=== PATIENT | female | born 1955 | race Caucasian/White ===

== ENCOUNTER → 2020-08-25 15:03 | Outpatient (BNVA) | payer BC, SELFPAY | PROVIDERS: PCP Internal Medicine; Visit Provider Internal Medicine Cardiovascular Disease | DX: I48.0 Paroxysmal atrial fibrillation (principal); I10 Essential (primary) hypertension; E11.9 Type 2 diabetes mellitus without complications; Z79.01 Long term (current) use of anticoagulants | CPT/HCPCS: 93005 ==

== ENCOUNTER 2021-01-15 06:05 | Inpatient (IN) | payer BC, SELFPAY ==
[2021-01-15] VITALS (7 sets, daily range): BP systolic 90–166; BP diastolic 62–91; PULSE 65–99; RESP 16–20; TEMP 36.7–36.8; O2SAT 96–100; BMI 39.1
--- NOTE | ~2021-01-15 | CT_ITS ---
EXAMINATION: CT HEAD WITHOUT CONTRAST CLINICAL INFORMATION: Confusion. Rule out bleed, stroke. COMPARISON: Report CT head 08/01/2009. MRI brain 08/12/2009. TECHNIQUE: Contiguous axial imaging was performed from the skull base to vertex without intravenous administration of contrast. This CT examination was performed using dose optimization techniques as appropriate, variously including the following: *Automated exposure control *Adjustment of mA and/or kV according to patient size (this includes techniques or standardized protocols for targeted exams where dose is matched to indication/reason for exam; i.e. extremities or head) *Use of iterative reconstruction technique DLP: 694 mGy-cm FINDINGS: Mild diffuse commensurate prominence of ventricles and sulci is noted. No intrarenal hemorrhage, tumors or acute infarcts are visualized. Mild segmental calcific atherosclerotic plaques are present in the cavernous portions of the cavernous portions of the internal carotid arteries and mild focal atherosclerotic plaques are present in the intradural segments of the left and right vertebral arteries. The orbits and globes are normal in appearance. Mild hyperostosis frontalis interna is visualized. No significant opacification of the visualized paranasal sinuses, mastoid air cells and middle ear cavities is noted. CT/CT head/brain wo con IMPRESSION: 1. No acute intracranial abnormalities. 2. Mild intercranial atherosclerosis; otherwise, normal unenhanced CT of the head. No intracranial hemorrhage, tumors or acute infarcts.
--- NOTE | 2021-01-15 06:15 | PC.NURSE ---
PT TO ED IN A MANIC PHASE. PT RAMBLING IN ROOM. PT ARRIVES ALERT, RESPIRATIONS EASY, N/L. SKIN W/Kylee. AT BEDSIDE FOR EVAL.
--- NOTE | 2021-01-15 06:30 | PC.NURSE ---
PT TO CT IN STRETCHER.
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
--- NOTE | 2021-01-15 07:21 | ECG_ITS ---
Test Reason : Atrial fibrillation Blood Pressure : / mmHG Vent. Rate : 085 BPM Atrial Rate : 085 BPM P-R Int : 166 ms QRS Dur : 086 ms QT Int : 436 ms P-R-T Axes : 046 017 150 degrees QTc Int : 518 ms Sinus rhythm with frequent Premature ventricular complexes Low voltage QRS ST & T wave abnormality, consider anterolateral ischemia Prolonged QT Abnormal ECG When compared with ECG of 08-JAN-2019 09:40, Premature ventricular complexes are now Present Left bundle branch block is no longer Present Referred By: Dick Ludwig Electronically Signed By:TC LEWIS MD
[2021-01-15 07:34] LABS: MANUAL DIFF FLAG NO
[2021-01-15 07:36] LABS: Basophils Percent Auto 0.4 % (0-2); Eosinophils Percent Auto 0.3 % (0-4); Hematocrit 33.4 % (37-47); Hemoglobin 11.1 g/dl (12.0-16.0); Imm Gran Abs Auto 0.03 X10*3/uL (0.00-0.03); Imm Gran Pct Auto 0.4 % (0.0-0.4); Lymphocytes Absolute Auto 1.3 X10*3/uL (1.2-4.9); Lymphocytes Percent Auto 18.1 % (20-40); Mean Corpuscular HGB Conc 33.2 g/dl (31.0-35.0); Mean Corpuscular Hemoglobin 28.8 pg (27.0-33.0); Mean Corpuscular Volume 86.5 fL (80-98); Mean Platelet Volume 9.6 fL (9.4-12.3); Monocytes Absolute Auto 0.5 X10*3/uL (0.1-1.2); Monocytes Percent Auto 6.5 % (2-11); Neutrophils Absolute Auto 5.3 X10*3/uL (2.0-8.3); Neutrophils Percent Auto 74.3 % (45-73); Platelet Count 221 X10*3/uL (160-400); Red Blood Count 3.86 X10*6/uL (4.20-5.50); Red Cell Distribution Width 13.6 % (11.0-16.0); White Blood Count 7.1 X10*3/uL (4.8-10.8)
[2021-01-15 08:06] LABS: Ethanol < 10 mg/dL; INTERNATIONAL NORM RATIO 1.3 (0.9-1.1); Prothrombin Time 15.1 SEC (10.8-13.0)
[2021-01-15 08:08] LABS: COVID-19 Test Negative (Negative)
[2021-01-15 08:09] LABS: Partial Thromboplastin Time 28.8 SEC (24.1-38.0)
[2021-01-15 08:10] LABS: Acetaminophen LAB < 1 mcg/mL (<30); Alanine Aminotransferase 22 U/L (0-31); Albumin Level 3.9 g/dL (3.5-5.0); Alkaline Phosphatase 58 U/L (39-117); Anion Gap 12 (12-20); Aspartate Amino Transferase 23 U/L (5-31); Bilirubin Total 0.8 mg/dL (0.0-1.0); Blood Urea Nitrogen 8 mg/dL (9-16); Calcium 8.6 mg/dL (8.4-10.2); Carbon Dioxide 24 mmol/L (22-29); Chloride 110 mmol/L (96-108); Creatinine Clr Calc Pharmacy 93.1; Estimated Glomerular Filt Rate > 60; Glucose Random 132 mg/dL (60-115); Potassium 3.2 mmol/L (3.3-5.1); Salicylate < 5.0 mg/dL (15-30); Sodium 143 mmol/L (135-145); Total Protein 6.4 g/dL (6.5-8.0)
--- NOTE | 2021-01-15 08:16 | PC.NURSE ---
EKG was done at this time, and given to Dr Ludwig
[2021-01-15] MEDS: LORazepam 1 MG TABLET 2 MG PO ×2 (08:23→19:29)
[2021-01-15 08:30] LABS: TSH reflex Free T4 3.85 uIU/mL (0.32-4.0)
[2021-01-15 12:03] LABS: Glucose Urine UA NEG (NEG); Leukocyte Esterase Urine TRACE (NEG); Nitrite Urine NEG (NEG); PH 5.5 (5.0-8.0); UACC Culture Trigger YES; Urine Blood NEG (NEG); Urine Ketones 15 MG/DL (NEG); Urine Protein NEG (NEG-TRACE)
[2021-01-15 12:06] LABS: Appearance Urine HAZY; Color Urine YELLOW
[2021-01-15 12:13] LABS: Bacteria Urine TRACE /LPF; RBC Urine 0-2 /HPF (0); Squamous Epithelial Cell Urine TRACE /LPF
--- NOTE | 2021-01-15 15:18 | PC.NURSE ---
Psychiatrist is at bedside
[2021-01-15] MEDS: Metoprolol Succinate ER 50 MG TAB.ER.24H PO (15:26)
--- NOTE | 2021-01-15 16:08 | PC.NURSE ---
Pt transferred from main ED. Pt confused, not oriented to place or time, only to person . Speech disorganized, answers nonsensical.
--- NOTE | 2021-01-15 16:59 | MHC.CARE ---
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 Pt?s will be speaking with her regarding her thoughts about coming to the unit. will also be speaking w/ Chloe Juárez regarding that as well.
[2021-01-15] MEDS: Rivaroxaban 20 MG TABLET PO (17:07)
--- NOTE | 2021-01-15 17:20 | PC.NURSE ---
Pt restless, pacing w/ bare feet, climbing furniture, reporting conspiracy political theories. in briefly. Pt paranoid, having difficulty accepting medications. Loud at times. Pt moved to room 6 to reduce stimulation for others.
[2021-01-15] MEDS: OLANZapine 5 MG TABLET PO (18:09)
--- NOTE | 2021-01-15 18:16 | PC.NURSE ---
Pt loud at times, redirectable, disorganized. Reviewed w/ BROADCASTER, pt medicated w/ olanzapine as ordered for loud, escalated behaviors.
--- NOTE | 2021-01-15 18:39 | PC.NURSE ---
Pt appears slightly calmer, in room w/ staff at this time.
--- NOTE | 2021-01-15 20:05 | ECG_ITS ---
Test Reason : ADMISSION Blood Pressure : / mmHG Vent. Rate : 079 BPM Atrial Rate : 079 BPM P-R Int : 170 ms QRS Dur : 124 ms QT Int : 442 ms P-R-T Axes : 075 -04 126 degrees QTc Int : 506 ms Sinus rhythm with Premature ventricular complexes or Fusion complexes Left bundle branch block Abnormal ECG When compared with ECG of 15-JAN-2021 08:13, Fusion complexes are now Present Left bundle branch block is now Present Referred By: Consuelo Melendez Electronically Signed By:TC LEWIS MD
--- NOTE | 2021-01-15 20:07 | PC.NURSE ---
Patient is up all over the POD, loud & disruptive, needs constant re-direction, administered one time dose of Ativan 2 mg PO and KCl 20 MeQ, patient compliant, took her HS Multaq as ordered, will continue to monitor.
[2021-01-15] MEDS: Dronedarone HCl 400 MG TABLET PO (20:26)
[2021-01-15 20:41] LABS: Glucose, Whole Blood 213 mg/dL (60-115)
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
[2021-01-15] MEDS: Divalproex Sodium 500 MG TABLET.DR PO (23:01)
[2021-01-15] MEDS: clonazePAM 1 MG TABLET PO (23:01)
[2021-01-16] MEDS: hydrOXYzine HCL 25 MG TABLET PO (01:50)
[2021-01-16] MEDS: traZODone HCL 50 MG TABLET PO (01:50)
[2021-01-16] MEDS: OLANZapine 5 MG TABLET PO (01:50)
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
[2021-01-16 08:30] LABS: Magnesium 1.8 mg/dL (1.6-2.6)
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
[2021-01-16] MEDS: Levothyroxine Sodium 112 MCG TABLET PO (08:59)
[2021-01-16 09:00] VITALS: BP 123/62; PULSE 66
[2021-01-16] MEDS: Metoprolol Succinate ER 50 MG TAB.ER.24H PO (09:00)
[2021-01-16] MEDS: Divalproex Sodium 500 MG TABLET.DR PO ×2 (09:00→20:57)
[2021-01-16] MEDS: Dronedarone HCl 400 MG TABLET PO ×2 (09:00→20:56)
--- NOTE | 2021-01-16 09:38 | PC.NURSE ---
PT REFUSED INFLUENZA VACCINE. 01/16/21
[2021-01-16 09:40] VITALS: BP 123/62; PULSE 66; RESP 16
[2021-01-16 16:40] VITALS: BP 111/51; PULSE 73; TEMP 36.8
[2021-01-16] MEDS: Rivaroxaban 20 MG TABLET PO (16:40)
[2021-01-16] MEDS: OLANZapine ODT 10 MG TAB.RAPDIS 5 MG TRANSLINGU (20:56)
[2021-01-16] MEDS: clonazePAM 1 MG TABLET PO (20:57)
[2021-01-17] MEDS: traZODone HCL 50 MG TABLET PO (01:34)
[2021-01-17] MEDS: hydrOXYzine HCL 25 MG TABLET PO ×2 (01:34→06:25)
[2021-01-17] MEDS: OLANZapine 5 MG TABLET PO ×2 (01:34→06:28)
[2021-01-17 05:20] VITALS: BP 116/58; PULSE 92; RESP 18; TEMP 36.5; O2SAT 95
[2021-01-17] MEDS: Levothyroxine Sodium 112 MCG TABLET PO (06:02)
[2021-01-17] MEDS: clonazePAM 1 MG TABLET PO (08:34)
[2021-01-17] MEDS: OLANZapine ODT 10 MG TAB.RAPDIS 5 MG TRANSLINGU (08:34)
[2021-01-17] MEDS: Divalproex Sodium 500 MG TABLET.DR PO (08:34)
[2021-01-17] MEDS: Dronedarone HCl 400 MG TABLET PO ×2 (08:35→19:40)
[2021-01-17 08:36] VITALS: BP 115/76; PULSE 90
[2021-01-17] MEDS: Metoprolol Succinate ER 50 MG TAB.ER.24H PO (08:36)
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
[2021-01-17] MEDS: LORazepam 1 MG TABLET PO ×2 (16:34→19:40)
[2021-01-17 17:27] VITALS: BP 105/64; PULSE 77
[2021-01-17] MEDS: Rivaroxaban 20 MG TABLET PO (18:01)
[2021-01-17] MEDS: OLANZapine 10 MG TABLET PO (19:40)
[2021-01-17] MEDS: Divalproex Sodium 500 MG TABLET.DR 1000 MG PO (19:40)
[2021-01-18 06:00] VITALS: BP 156/70; PULSE 110; RESP 18; TEMP 36.3; O2SAT 95
[2021-01-18] MEDS: Levothyroxine Sodium 112 MCG TABLET PO (06:10)
[2021-01-18] MEDS: LORazepam 1 MG TABLET PO ×3 (08:00→21:09)
[2021-01-18] MEDS: Divalproex Sodium 500 MG TABLET.DR PO (08:00)
[2021-01-18] MEDS: Dronedarone HCl 400 MG TABLET PO ×2 (08:02→21:08)
[2021-01-18 08:03] VITALS: BP 148/77; PULSE 108
[2021-01-18] MEDS: Metoprolol Succinate ER 50 MG TAB.ER.24H PO (08:03)
[2021-01-18] MEDS: OLANZapine 5 MG TABLET PO (08:07)
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
[2021-01-18 11:33] LABS: Ammonia 30 umol/L (13-55)
[2021-01-18 16:06] VITALS: BP 109/56; PULSE 64; TEMP 36.3
[2021-01-18] MEDS: Rivaroxaban 20 MG TABLET PO (18:07)
[2021-01-18] MEDS: Magnesium Hydrox/Alum Hydrox 30 ML ORAL.SUSP PO (18:45)
[2021-01-18] MEDS: Divalproex Sodium 500 MG TABLET.DR 1000 MG PO (21:09)
[2021-01-18] MEDS: OLANZapine 10 MG TABLET PO (21:09)
[2021-01-18] MEDS: Acetaminophen 325 MG TABLET 650 MG PO (21:51)
--- NOTE | 2021-01-19 | ECG_ITS ---
Test Reason : R/O QTC PROLONG Blood Pressure : / mmHG Vent. Rate : 058 BPM Atrial Rate : 058 BPM P-R Int : 174 ms QRS Dur : 086 ms QT Int : 506 ms P-R-T Axes : 017 015 029 degrees QTc Int : 496 ms Sinus bradycardia with Premature atrial complexes with Aberrant conduction Low voltage QRS T wave abnormality, consider anterior ischemia Prolonged QT Abnormal ECG When compared with ECG of 15-JAN-2021 20:22, Left bundle branch block is no longer Present T inversion in anterior leads not seen before Referred By: Marry Brown Electronically Signed By:VAIBHAV CHRIS
[2021-01-19] MEDS: OLANZapine 5 MG TABLET PO ×2 (04:12→08:28)
[2021-01-19] MEDS: hydrOXYzine HCL 25 MG TABLET PO ×2 (04:12→18:29)
[2021-01-19 05:30] VITALS: BP 124/66; PULSE 68; RESP 18; TEMP 35.9; O2SAT 99
[2021-01-19] MEDS: Levothyroxine Sodium 112 MCG TABLET PO (06:14)
[2021-01-19 08:18] VITALS: BP 178/79; PULSE 70; RESP 18
[2021-01-19 08:27] VITALS: BP 178/79; PULSE 70
[2021-01-19] MEDS: Metoprolol Succinate ER 50 MG TAB.ER.24H PO (08:27)
[2021-01-19] MEDS: Divalproex Sodium 500 MG TABLET.DR PO (08:27)
[2021-01-19] MEDS: Dronedarone HCl 400 MG TABLET PO ×2 (08:28→19:41)
[2021-01-19] MEDS: LORazepam 1 MG TABLET PO ×2 (08:28→19:41)
--- NOTE | 2021-01-19 15:38 | MHC.CLN ---
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
[2021-01-19] MEDS: Rivaroxaban 20 MG TABLET PO (17:30)
[2021-01-19 18:00] VITALS: BP 149/66; PULSE 61; TEMP 36.5
[2021-01-19] MEDS: Divalproex Sodium 500 MG TABLET.DR 1000 MG PO (19:41)
[2021-01-19] MEDS: risperiDONE 1 MG TABLET PO (19:41)
[2021-01-20] MEDS: hydrOXYzine HCL 25 MG TABLET PO (00:19)
[2021-01-20] MEDS: OLANZapine 5 MG TABLET PO ×3 (00:19→16:36)
[2021-01-20 06:00] VITALS: BP 137/63; PULSE 62; RESP 16; TEMP 35.9; O2SAT 98
[2021-01-20] MEDS: Levothyroxine Sodium 112 MCG TABLET PO (06:53)
[2021-01-20 08:17] VITALS: BP 155/67; PULSE 76
[2021-01-20 08:20] VITALS: BP 155/67; PULSE 76
[2021-01-20] MEDS: Divalproex Sodium 500 MG TABLET.DR PO (08:20)
[2021-01-20] MEDS: Metoprolol Succinate ER 50 MG TAB.ER.24H PO (08:20)
[2021-01-20] MEDS: risperiDONE 1 MG TABLET PO ×2 (08:21→20:44)
[2021-01-20] MEDS: Dronedarone HCl 400 MG TABLET PO ×2 (08:21→20:44)
[2021-01-20 08:42] LABS: Valproate 118.9 mcg/mL (50.0-100.0)
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
[2021-01-20] MEDS: Rivaroxaban 20 MG TABLET PO (17:57)
[2021-01-20 18:00] VITALS: BP 124/60; PULSE 67; RESP 18; TEMP 36.2
[2021-01-20] MEDS: LORazepam 1 MG TABLET PO (20:44)
[2021-01-20] MEDS: traZODone HCL 50 MG TABLET PO (20:49)
[2021-01-21] MEDS: OLANZapine 5 MG TABLET PO ×2 (01:31→11:15)
[2021-01-21] MEDS: hydrOXYzine HCL 25 MG TABLET PO (01:31)
[2021-01-21] MEDS: Divalproex Sodium 500 MG TABLET.DR PO ×2 (09:10→20:36)
[2021-01-21] MEDS: Levothyroxine Sodium 112 MCG TABLET PO (09:10)
[2021-01-21] MEDS: Dronedarone HCl 400 MG TABLET PO ×2 (09:10→20:37)
[2021-01-21] MEDS: risperiDONE 1 MG TABLET PO (09:11)
[2021-01-21 09:12] VITALS: BP 138/61; PULSE 83
[2021-01-21] MEDS: Metoprolol Succinate ER 50 MG TAB.ER.24H PO (09:12)
[2021-01-21 09:19] VITALS: BP 138/61; PULSE 83; RESP 16; O2SAT 97
[2021-01-21] MEDS: Milk of Magnesia 30 ML ORAL.SUSP PO (09:22)
[2021-01-21 09:52] LABS: Valproate 72.5 mcg/mL (50.0-100.0)
--- NOTE | 2021-01-21 14:14 | HO.PSYCHPN ---
Subjective Subjective Date of Service: 01/22/21 Reason For Visit: si Interim History: Pt presents as very irritable. She was asking this technical writer and editor to first pass a test before she could talk with me. She asks this technical writer and editor to smile. Pt thinks this technical writer and editor may be a spy. She states she is not sure if I am the one monitoring her. She denies SI/HI. She continues to present with hypersexulized behaviors, asking staff to look at private parts. 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, not so much to situation, impaired secondary to psychiatric symptoms Review of Systems Review of Systems Yes all other systems are reviewed and are negative and Unobtainable due to mental status Cardiovascular: Reports as per HPI, Reports no additional cardiovascular complaints, Denies acrocyanosis, Denies cool extremities, Denies painful fingertips, Denies chest pain, Denies chest pain at rest, Denies diaphoresis, Denies syncope, Denies irregular heart rhythm, Denies claudication, Denies leg edema, Denies lightheadedness, Denies palpitations and Denies dyspnea Respiratory: Denies dyspnea Denies syncope Endocrine: Denies palpitations Diagnostics Vital Signs (24Hr): Vital Signs - 24 hr 01/21/21 17:15 01/22/21 08:16 01/22/21 08:28 Temperature 97.8 F 96.8 F Pulse Rate 68 65 65 Respiratory Rate 18 Blood Pressure 115/58 L 135/65 135/65 Body Mass Index 30.6 Labs Results: 01/15/21 07:28 01/16/21 07:49 Labs: Laboratory Results - last 48 hr 01/21/21 08:13 Valproic Acid 72.5 Imaging Radiology Impressions: ITS Impressions Head CT 01/15/21 06:29 IMPRESSION: 1. No acute intracranial abnormalities. 2. Mild intercranial atherosclerosis; otherwise, normal unenhanced CT of the head. No intracranial hemorrhage, tumors or acute infarcts. Medications Medications Current Medications Generic Name Dose Route Start Last Admin Trade Name Freq PRN Reason Stop Dose Admin Acetaminophen 650 mg 01/15/21 21:07 01/18/21 21:51 Acetaminophen 325 Mg Tablet PO 650 mg Q6H PRN Administration Headache/Pain Mild Scale (1-3) Al Hydroxide/Mg Hydroxide 30 ml 01/15/21 21:07 01/18/21 18:45 Magnesium Hydrox/Alum Hydrox 30 Ml Oral.Susp PO 30 ml Q6H PRN Administration Heartburn/Nausea Benztropine Mesylate 1 mg 01/21/21 20:02 01/21/21 22:25 Benztropine Mesylate 1 Mg Tablet PO 1 mg ONCE PRN Administration extrapyramidal symptoms Divalproex Sodium 500 mg 01/20/21 21:00 01/22/21 08:29 Divalproex Sodium 500 Mg Tablet.Dr PO 500 mg BID SELMA Administration Dronedarone 400 mg 01/15/21 13:15 01/22/21 08:29 Dronedarone Hcl 400 Mg Tablet PO 400 mg BID SEMLA Administration Hydroxyzine HCl 25 mg 01/15/21 21:07 01/22/21 03:31 Hydroxyzine Hcl 25 Mg Tablet PO 25 mg Q6H PRN Administration Anxiety Levothyroxine Sodium 112 mcg 01/15/21 13:04 01/22/21 08:29 Levothyroxine Sodium 112 Mcg Tablet PO 112 mcg DAILY@0600 SELMA Administration Lorazepam 1 mg 01/19/21 21:00 01/21/21 20:37 Lorazepam 1 Mg Tablet PO 1 mg BEDTIME SELMA Administration Magnesium Hydroxide 30 ml 01/15/21 21:07 01/21/21 09:22 Milk Of Magnesia 30 Ml Oral.Susp PO 15 ml DAILY PRN Administration Constipation Metoprolol Succinate 50 mg 01/15/21 13:15 01/22/21 08:28 Metoprolol Succinate Er 50 Mg Tab.Er.24h PO 50 mg DAILY SELMA Administration Protocol Olanzapine 5 mg 01/15/21 21:41 01/22/21 03:31 Olanzapine 5 Mg Tablet PO 5 mg Q6H PRN Administration agitation Risperidone 2 mg 01/21/21 21:00 01/21/21 20:36 Risperidone 2 Mg Tablet PO 2 mg BEDTIME SELMA Administration Risperidone 1 mg 01/22/21 09:00 01/22/21 08:29 Risperidone 1 Mg Tablet PO 1 mg DAILY SELMA Administration Rivaroxaban 20 mg 01/15/21 17:00 01/21/21 19:02 Rivaroxaban 20 Mg Tablet PO 20 mg DAILY@1700 SELMA Administration Trazodone HCl 50 mg 01/15/21 21:07 01/21/21 22:25 Trazodone Hcl 50 Mg Tablet PO 50 mg BEDTIME PRN Administration Insomnia Allergies Allergies Allergy/AdvReac Type Severity Reaction Status Date / Time aspirin [ASA] Allergy Intermediate GI PAIN, Unverified 01/15/21 15:19 upset stomach Assessment & Plan Assessment & Plan (1) PAF (paroxysmal atrial fibrillation): Status: Acute Code(s): I48.0 - Paroxysmal atrial fibrillation Assessment and Plan: cardiology consult pending (2) Prolonged QT interval: Status: Acute Code(s): R94.31 - Abnormal electrocardiogram [ECG] [EKG] (3) Bipolar 1 disorder, manic, moderate: Status: Acute Code(s): F31.12 - Bipolar disorder, current episode manic without psychotic features, moderate Assessment and Plan: 1. Continue risperidone 1mg po daily and 2mg po qhs. 2. Continue Depakote 500mg po daily and 1000mg po qhs. Greater than 50% of the session was spent on counseling and/or coordination of care Reason for contiued inpatient stay Substantial Risk for: inability to function
[2021-01-21 17:15] VITALS: BP 115/58; PULSE 68; TEMP 36.6
[2021-01-21] MEDS: Rivaroxaban 20 MG TABLET PO (19:02)
[2021-01-21] MEDS: risperiDONE 2 MG TABLET PO (20:36)
[2021-01-21] MEDS: LORazepam 1 MG TABLET PO (20:37)
[2021-01-21] MEDS: traZODone HCL 50 MG TABLET PO ×2 (20:44→22:25)
[2021-01-21] MEDS: Benztropine Mesylate 1 MG TABLET PO (22:25)
--- NOTE | 2021-01-22 | ECG_ITS ---
Test Reason : QTC PROLONGATION Blood Pressure : / mmHG Vent. Rate : 054 BPM Atrial Rate : 054 BPM P-R Int : 186 ms QRS Dur : 086 ms QT Int : 514 ms P-R-T Axes : -03 027 052 degrees QTc Int : 487 ms Sinus bradycardia T wave abnormality, consider anterior ischemia Prolonged QT Abnormal ECG When compared with ECG of 20-JAN-2021 13:21, No significant changes seen Referred By: Marry Brown Electronically Signed By:VAIBHAV CHRIS
[2021-01-22] MEDS: OLANZapine 5 MG TABLET PO (03:31)
[2021-01-22] MEDS: hydrOXYzine HCL 25 MG TABLET PO (03:31)
[2021-01-22 08:16] VITALS: BP 135/65; PULSE 65; RESP 18; TEMP 36
[2021-01-22 08:28] VITALS: BP 135/65; PULSE 65
[2021-01-22] MEDS: Metoprolol Succinate ER 50 MG TAB.ER.24H PO (08:28)
[2021-01-22] MEDS: Divalproex Sodium 500 MG TABLET.DR PO ×2 (08:29→21:14)
[2021-01-22] MEDS: Dronedarone HCl 400 MG TABLET PO ×2 (08:29→21:15)
[2021-01-22] MEDS: risperiDONE 1 MG TABLET PO (08:29)
[2021-01-22] MEDS: Levothyroxine Sodium 112 MCG TABLET PO (08:29)
--- NOTE | 2021-01-22 11:22 | P.CONCA_ITS ---
History of Present Illness History of Present Illness Date of Service: 01/22/21 Consult reason: other (Abnormal EKG) Chief complaint: si Narrative: This is a cardiology consultation regarding QT interval. Patient is currently admitted to psychiatric unit for bipolar disorder and on medication for the same. We have been asked to assess her EKG for QT. She has a history of paroxysmal atrial fibrillation for which he is on Multaq. Overall, she seems to have been stable from that standpoint and is currently in sinus rhythm. She denies any specific cardiac symptoms. Review of Systems Review of Systems: Yes all other systems are reviewed and are negative Cardiovascular: Cardiovascular: Reports as per HPI, Reports no additional cardiovascular complaints, Denies acrocyanosis, Denies cool extremities, Denies painful fingertips, Denies chest pain, Denies chest pain at rest, Denies diaphoresis, Denies syncope, Denies irregular heart rhythm, Denies claudication, Denies leg edema, Denies lightheadedness, Denies palpitations and Denies dyspnea Respiratory: Respiratory: Denies dyspnea Neurologic: Denies syncope Endocrine: Endocrine: Denies palpitations [facility] Past Medical History Medical History (Updated 01/22/21 @ 11:26 by Dennis Fernández MD) Diabetes mellitus HTN (hypertension) LBBB (left bundle branch block) PAF (paroxysmal atrial fibrillation) Paroxysmal atrial fibrillation Family History Family History Father No problems noted. Mother No problems noted. Surgical History Surgical History Hx of arthroscopy of right knee Social History Social History Household Members: Family Household Members Other:: daughter + Housing: House Do you presently have visiting nurse or other home services: No Smoking Status: Never smoker Second Hand Smoke Exposure: No Use of substances other than those prescribed or required for medical reasons: No Currently Displaying Signs/Symptoms of Drug Intoxication Withdrawal: No Have you been hit, kicked, punched, or otherwise hurt by someone within the past year? If so, by whom?: No Do you feel safe in your current relationship?: No Is there a partner from a previous relationship who is making you feel unsafe now?: No Are you made to feel afraid or neglected: No Advance Directives: No Do you have thoughts of harming others: None Do you have a plan to hurt others: No Plan Recently lost weight without trying: Unsure service: No Sexual orientation: Straight/Heterosexual Meds Allergies Allergy/AdvReac Type Severity Reaction Status Date / Time aspirin [ASA] Allergy Intermediate GI PAIN, Unverified 01/15/21 15:19 upset stomach Active Medications: Current Medications Generic Name Dose Route Start Last Admin Trade Name Freq PRN Reason Stop Dose Admin Acetaminophen 650 mg 01/15/21 21:07 01/18/21 21:51 Acetaminophen 325 Mg Tablet PO 650 mg Q6H PRN Administration Headache/Pain Mild Scale (1-3) Al Hydroxide/Mg Hydroxide 30 ml 01/15/21 21:07 01/18/21 18:45 Magnesium Hydrox/Alum Hydrox 30 Ml Oral.Susp PO 30 ml Q6H PRN Administration Heartburn/Nausea Benztropine Mesylate 1 mg 01/21/21 20:02 01/21/21 22:25 Benztropine Mesylate 1 Mg Tablet PO 1 mg ONCE PRN Administration extrapyramidal symptoms Divalproex Sodium 500 mg 01/20/21 21:00 01/22/21 08:29 Divalproex Sodium 500 Mg Tablet.Dr PO 500 mg BID SELMA Administration Dronedarone 400 mg 01/15/21 13:15 01/22/21 08:29 Dronedarone Hcl 400 Mg Tablet PO 400 mg BID SELMA Administration Hydroxyzine HCl 25 mg 01/15/21 21:07 01/22/21 03:31 Hydroxyzine Hcl 25 Mg Tablet PO 25 mg Q6H PRN Administration Anxiety Levothyroxine Sodium 112 mcg 01/15/21 13:04 01/22/21 08:29 Levothyroxine Sodium 112 Mcg Tablet PO 112 mcg DAILY@0600 SELMA Administration Lorazepam 1 mg 01/19/21 21:00 01/21/21 20:37 Lorazepam 1 Mg Tablet PO 1 mg BEDTIME SELMA Administration Magnesium Hydroxide 30 ml 01/15/21 21:07 01/21/21 09:22 Milk Of Magnesia 30 Ml Oral.Susp PO 15 ml DAILY PRN Administration Constipation Metoprolol Succinate 50 mg 01/15/21 13:15 01/22/21 08:28 Metoprolol Succinate Er 50 Mg Tab.Er.24h PO 50 mg DAILY SELMA Administration Protocol Olanzapine 5 mg 01/15/21 21:41 01/22/21 03:31 Olanzapine 5 Mg Tablet PO 5 mg Q6H PRN Administration agitation Risperidone 2 mg 01/21/21 21:00 01/21/21 20:36 Risperidone 2 Mg Tablet PO 2 mg BEDTIME SELMA Administration Risperidone 1 mg 01/22/21 09:00 01/22/21 08:29 Risperidone 1 Mg Tablet PO 1 mg DAILY SELMA Administration Rivaroxaban 20 mg 01/15/21 17:00 01/21/21 19:02 Rivaroxaban 20 Mg Tablet PO 20 mg DAILY@1700 SELMA Administration Trazodone HCl 50 mg 01/15/21 21:07 01/21/21 22:25 Trazodone Hcl 50 Mg Tablet PO 50 mg BEDTIME PRN Administration Insomnia Home Medications Medication Instructions Recorded Confirmed Last Taken Type levothyroxine 1 tab PO DAILY 01/15/21 01/15/21 Unknown History Physical Exam Vital Signs: Vital Signs: Last Vital Signs Temp 96.8 F 01/22/21 08:16 Pulse 65 01/22/21 08:28 Resp 18 01/22/21 08:16 BP 135/65 01/22/21 08:28 Pulse Ox 97 01/21/21 09:19 Body Mass Index 39.1 Const: General: cooperative, comfortable and no acute distress Ted entation/consciousness: patient oriented x3 HENMT: Other: Unremarkable Neck: Neck: Yes normal visual inspection Chest: Chest palpation & inspection: normal inspection of the chest Resp: Auscultation: clear to auscultation bilaterally, no crackles and no wheezes Cardio: Jugular venous distension: no JVD Palpation: normal PMI Heart sounds: S1 normal heart sound present, S2 normal heart sound present, no gallops, no murmurs and no rubs GI: Palpation (GI): Soft to palpation Back/Spine/Pelvis: Other: unremarkable Skin: General skin exam: no rashes or lesions noted Neuro: General: patient oriented x3 Extrem: General: Yes no clubbing, cyanosis or edema Psych: Mental Status: mental status grossly normal Results Labs and Meds Result diagrams: 01/15/21 07:28 01/16/21 07:49 ECG Attestation: I personally reviewed and interpreted this ECG as follows: Interpretation: In the EKG from twenty-third, underlying rhythm sinus bradycardia at 58/Min. There is slight T inversions in the precordial leads which seems a bit different from the previous ones. QTc interval 496 milliseconds. In the EKG few days prior to that, she had evidence of left bundle-branch block and QTc was 506 milliseconds. Assessment and Plan (1) PAF (paroxysmal atrial fibrillation): Status: Acute (2) Prolonged QT interval: Status: Acute From the atrial fibrillation standpoint, she seems to be stable. Continue Multaq. Continue Rivaroxaban. Multaq is an agent that can prolong QT interval and currently she is at top normal/slightly prolonged. There is also slight widening of QRS and that contributes to the prolonged QT as well. If she requires antipsychotics that can prolong QT interval, then we will need to closely monitor. While medications are actively titrated, will require daily EKGs. Once she is stable, then may perform every 3 months.
[2021-01-22 13:30] VITALS: BMI 30.6
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
[2021-01-22 16:45] VITALS: BP 155/67; PULSE 70; TEMP 36.1
[2021-01-22] MEDS: Rivaroxaban 20 MG TABLET PO (17:11)
[2021-01-22] MEDS: LORazepam 1 MG TABLET PO (21:15)
[2021-01-22] MEDS: risperiDONE 2 MG TABLET PO (21:15)
[2021-01-22] MEDS: traZODone HCL 50 MG TABLET PO (21:23)
[2021-01-22] MEDS: Acetaminophen 325 MG TABLET 650 MG PO (22:45)
[2021-01-23 04:25] VITALS: BP 125/60; PULSE 65; RESP 18; TEMP 36.2; O2SAT 98
[2021-01-23] MEDS: Levothyroxine Sodium 112 MCG TABLET PO (07:12)
[2021-01-23 08:33] VITALS: BP 120/66; PULSE 59; RESP 16
[2021-01-23 09:30] VITALS: BP 120/66
[2021-01-23] MEDS: Metoprolol Succinate ER 50 MG TAB.ER.24H PO (09:30)
[2021-01-23] MEDS: risperiDONE 1 MG TABLET PO (09:30)
[2021-01-23] MEDS: Dronedarone HCl 400 MG TABLET PO ×2 (09:30→21:55)
[2021-01-23] MEDS: Divalproex Sodium 500 MG TABLET.DR PO ×2 (09:30→21:55)
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
[2021-01-23] MEDS: Acetaminophen 325 MG TABLET 650 MG PO (15:58)
[2021-01-23] MEDS: Rivaroxaban 20 MG TABLET PO (16:55)
[2021-01-23 18:00] VITALS: BP 117/60; PULSE 63; RESP 16; TEMP 36.2; O2SAT 97
[2021-01-23] MEDS: LORazepam 1 MG TABLET PO (21:55)
[2021-01-23] MEDS: risperiDONE 2 MG TABLET PO (21:55)
[2021-01-24 06:00] VITALS: BP 86/48; PULSE 92; TEMP 35.9
[2021-01-24] MEDS: Levothyroxine Sodium 112 MCG TABLET PO (06:12)
[2021-01-24 08:18] VITALS: BP 161/77; PULSE 100; RESP 16; TEMP 35.7
[2021-01-24 09:14] VITALS: BP 161/77
[2021-01-24] MEDS: Metoprolol Succinate ER 50 MG TAB.ER.24H PO (09:14)
[2021-01-24] MEDS: Dronedarone HCl 400 MG TABLET PO ×2 (09:14→21:44)
[2021-01-24] MEDS: risperiDONE 1 MG TABLET PO (09:15)
[2021-01-24] MEDS: Divalproex Sodium 500 MG TABLET.DR PO ×2 (09:15→21:44)
--- NOTE | 2021-01-24 15:37 | P.PNPSI_ITS ---
Subjective Subjective Date of Service: 01/24/21 Reason For Visit: si Subjective Notes: Conditional Voluntary Interim History: Pt reports visual perceptual alterations which she is aware are not real and as a result is able to manage this symptom which she reports is diminishing. Sleep is improved, appetite is intact. Discussed her judaism belief that this is the end of days and wonders why she was chosen to experience this. She states when speaking with others about this they redirect her, however, she believes this to be true and finds the ability to discuss it a relief. Medication Compliance: Yes Side effects from medications: No Review of Systems Review of Systems Yes all other systems are reviewed and are negative (denies) Psychiatric: Reports depression, Reports hallucinations and Reports suicidal ideation (denies) Mental Status Exam Mental Status Exam Patient Appearance: Appropriate Patient Orientation: Person, Place and Situation Level of Consciousness: Alert Patient Behavior: Talkative Mood Description: Calm and Depressed Affect Description: Flat Patient Cognition Impaired: No Ability to Follow Directions: Good Speech Pattern: Spontaneous Speech Memory Description: Episodic Impaired Hallucinations: None (denies) Delusions: Present Thought Process: Distracted Thought Content: positive for [place], positive for Circumstantial and positive for Perseveration Depressive Symptoms: Increased Anxiety and Thoughts of /Suicide (denies) Judgement: Fair Diagnostics Vital Signs (24Hr): Vital Signs - 24 hr 01/23/21 18:00 01/24/21 06:00 01/24/21 08:18 Temperature 97.1 F 96.7 F L 96.2 F L Pulse Rate 63 92 100 Respiratory Rate 16 16 Blood Pressure 117/60 86/48 L 161/77 H Pulse Oximetry 97 01/24/21 09:14 Temperature Pulse Rate Respiratory Rate Blood Pressure 161/77 H Pulse Oximetry Body Mass Index 30.6 Labs Results: 01/15/21 07:28 01/16/21 07:49 Labs: Laboratory Results - last 48 hr 01/24/21 08:29 Valproic Acid 88.0 Imaging Radiology Impressions: ITS Impressions Head CT 01/15/21 06:29 IMPRESSION: 1. No acute intracranial abnormalities. 2. Mild intercranial atherosclerosis; otherwise, normal unenhanced CT of the head. No intracranial hemorrhage, tumors or acute infarcts. Medications Medications Current Medications Generic Name Dose Route Start Last Admin Trade Name Freq PRN Reason Stop Dose Admin Acetaminophen 650 mg 01/15/21 21:07 01/23/21 15:58 Acetaminophen 325 Mg Tablet PO 650 mg Q6H PRN Administration Headache/Pain Mild Scale (1-3) Al Hydroxide/Mg Hydroxide 30 ml 01/15/21 21:07 01/18/21 18:45 Magnesium Hydrox/Alum Hydrox 30 Ml Oral.Susp PO 30 ml Q6H PRN Administration Heartburn/Nausea Benztropine Mesylate 1 mg 01/21/21 20:02 01/21/21 22:25 Benztropine Mesylate 1 Mg Tablet PO 1 mg ONCE PRN Administration extrapyramidal symptoms Divalproex Sodium 500 mg 01/20/21 21:00 01/24/21 09:15 Divalproex Sodium 500 Mg Tablet.Dr PO 500 mg BID SELMA Administration Dronedarone 400 mg 01/15/21 13:15 01/24/21 09:14 Dronedarone Hcl 400 Mg Tablet PO 400 mg BID SELMA Administration Hydroxyzine HCl 25 mg 01/15/21 21:07 01/22/21 03:31 Hydroxyzine Hcl 25 Mg Tablet PO 25 mg Q6H PRN Administration Anxiety Levothyroxine Sodium 112 mcg 01/15/21 13:04 01/24/21 06:12 Levothyroxine Sodium 112 Mcg Tablet PO 112 mcg DAILY@0600 SELMA Administration Lorazepam 1 mg 01/19/21 21:00 01/23/21 21:55 Lorazepam 1 Mg Tablet PO 1 mg BEDTIME SELMA Administration Magnesium Hydroxide 30 ml 01/15/21 21:07 01/21/21 09:22 Milk Of Magnesia 30 Ml Oral.Susp PO 15 ml DAILY PRN Administration Constipation Metoprolol Succinate 50 mg 01/15/21 13:15 01/24/21 09:14 Metoprolol Succinate Er 50 Mg Tab.Er.24h PO 50 mg DAILY SELMA Administration Protocol Olanzapine 5 mg 01/15/21 21:41 01/22/21 03:31 Olanzapine 5 Mg Tablet PO 5 mg Q6H PRN Administration agitation Risperidone 2 mg 01/21/21 21:00 01/23/21 21:55 Risperidone 2 Mg Tablet PO 2 mg BEDTIME SELMA Administration Risperidone 1 mg 01/22/21 09:00 01/24/21 09:15 Risperidone 1 Mg Tablet PO 1 mg DAILY SELMA Administration Rivaroxaban 20 mg 01/15/21 17:00 01/23/21 16:55 Rivaroxaban 20 Mg Tablet PO 20 mg DAILY@1700 SELMA Administration Trazodone HCl 50 mg 01/15/21 21:07 01/22/21 21:23 Trazodone Hcl 50 Mg Tablet PO 50 mg BEDTIME PRN Administration Insomnia Allergies Allergies Allergy/AdvReac Type Severity Reaction Status Date / Time aspirin [ASA] Allergy Intermediate GI PAIN, Unverified 01/15/21 15:19 upset stomach Assessment & Plan Assessment & Plan (1) Bipolar 1 disorder, manic, moderate: Status: Acute Code(s): F31.12 - Bipolar disorder, current episode manic without psychotic features, moderate (2) PTSD (post-traumatic stress disorder): Status: Acute Code(s): F43.10 - Post-traumatic stress disorder, unspecified Greater than 50% of the session was spent on counseling and/or coordination of care Reason for contiued inpatient stay Substantial Risk for: rapid decompensation
[2021-01-24] MEDS: Rivaroxaban 20 MG TABLET PO (16:58)
[2021-01-24 18:00] VITALS: BP 116/60; PULSE 114; RESP 18; TEMP 36.3; O2SAT 95
[2021-01-24] MEDS: LORazepam 1 MG TABLET PO (21:44)
[2021-01-24] MEDS: Artificial Tears 15 ML DROPS 2 DROP EYE-BOTH ×2 (21:44→23:51)
[2021-01-24] MEDS: risperiDONE 2 MG TABLET PO (21:44)
[2021-01-25 06:00] VITALS: BP 120/68; PULSE 115; RESP 14; TEMP 35.7; O2SAT 95
[2021-01-25] MEDS: Levothyroxine Sodium 112 MCG TABLET PO (06:47)
[2021-01-25 08:23] VITALS: BP 111/64; PULSE 100
[2021-01-25] MEDS: risperiDONE 1 MG TABLET PO (08:23)
[2021-01-25] MEDS: Dronedarone HCl 400 MG TABLET PO ×2 (08:23→21:41)
[2021-01-25] MEDS: Metoprolol Succinate ER 50 MG TAB.ER.24H PO (08:23)
[2021-01-25] MEDS: Divalproex Sodium 500 MG TABLET.DR PO ×2 (08:23→21:41)
--- NOTE | 2021-01-25 08:32 | HO.PSYCHPN ---
Subjective Subjective Date of Service: 01/25/21 Reason For Visit: si Subjective Notes: Conditional Voluntary Interim History: Samar Billings reports she is feeling well. She is alert, oriented, engaged in milieu-participating in art group, social with peers. She continued our discussion of 01/24 today asking if TW knew the reason she was chosen to be part of the end of days-explains that the reason she asks is because she does not know what her role is or what she should be doing to help the world. Discussed being herself and being with her family. Medication Compliance: Yes Side effects from medications: No Attending Groups: Yes Review of Systems Eyes: Reports eye discharge (reports a.m. conjunctivitis sx-asked to show team in the a.m.) Psychiatric: Reports anxiety and Reports hallucinations Mental Status Exam Mental Status Exam Patient Appearance: Appropriate Patient Orientation: Person, Place, Time and Situation Level of Consciousness: Alert Patient Behavior: Appropriate, Talkative, Cooperative, Distractible and Good Eye Contact Mood Description: Calm Affect Description: Flat Patient Cognition Impaired: Yes Ability to Follow Directions: Good Speech Pattern: Spontaneous Speech Memory Description: Remote Impaired and Episodic Impaired Hallucinations: None Delusions: Present Thought Process: Distracted Thought Content: positive for [place] and positive for Circumstantial Judgement: Fair Diagnostics Vital Signs (24Hr): Vital Signs - 24 hr 01/24/21 09:14 01/24/21 18:00 01/25/21 06:00 Temperature 97.3 F 96.2 F L Pulse Rate 114 H 115 H Respiratory Rate 18 14 Blood Pressure 161/77 H 116/60 120/68 Pulse Oximetry 95 95 01/25/21 08:23 Temperature Pulse Rate 100 Respiratory Rate Blood Pressure 111/64 Pulse Oximetry Body Mass Index 30.6 Labs Results: 01/15/21 07:28 01/16/21 07:49 Labs: Laboratory Results - last 48 hr 01/24/21 08:29 Valproic Acid 88.0 Imaging Radiology Impressions: ITS Impressions Head CT 01/15/21 06:29 IMPRESSION: 1. No acute intracranial abnormalities. 2. Mild intercranial atherosclerosis; otherwise, normal unenhanced CT of the head. No intracranial hemorrhage, tumors or acute infarcts. Medications Medications Current Medications Generic Name Dose Route Start Last Admin Trade Name Freq PRN Reason Stop Dose Admin Acetaminophen 650 mg 01/15/21 21:07 01/23/21 15:58 Acetaminophen 325 Mg Tablet PO 650 mg Q6H PRN Administration Headache/Pain Mild Scale (1-3) Al Hydroxide/Mg Hydroxide 30 ml 01/15/21 21:07 01/18/21 18:45 Magnesium Hydrox/Alum Hydrox 30 Ml Oral.Susp PO 30 ml Q6H PRN Administration Heartburn/Nausea Artificial Tears 2 drop 01/24/21 19:38 01/24/21 23:51 Artificial Tears 15 Ml Drops EYE-BOTH 2 drop Q4H PRN Administration Dry Eyes Benztropine Mesylate 1 mg 01/21/21 20:02 01/21/21 22:25 Benztropine Mesylate 1 Mg Tablet PO 1 mg ONCE PRN Administration extrapyramidal symptoms Divalproex Sodium 500 mg 01/20/21 21:00 01/25/21 08:23 Divalproex Sodium 500 Mg Tablet.Dr PO 500 mg BID SELMA Administration Dronedarone 400 mg 01/15/21 13:15 01/25/21 08:23 Dronedarone Hcl 400 Mg Tablet PO 400 mg BID SELMA Administration Hydroxyzine HCl 25 mg 01/15/21 21:07 01/22/21 03:31 Hydroxyzine Hcl 25 Mg Tablet PO 25 mg Q6H PRN Administration Anxiety Levothyroxine Sodium 112 mcg 01/15/21 13:04 01/25/21 06:47 Levothyroxine Sodium 112 Mcg Tablet PO 112 mcg DAILY@0600 SELMA Administration Lorazepam 1 mg 01/19/21 21:00 01/24/21 21:44 Lorazepam 1 Mg Tablet PO 1 mg BEDTIME SELMA Administration Magnesium Hydroxide 30 ml 01/15/21 21:07 01/21/21 09:22 Milk Of Magnesia 30 Ml Oral.Susp PO 15 ml DAILY PRN Administration Constipation Metoprolol Succinate 50 mg 01/15/21 13:15 01/25/21 08:23 Metoprolol Succinate Er 50 Mg Tab.Er.24h PO 50 mg DAILY SELMA Administration Protocol Olanzapine 5 mg 01/15/21 21:41 01/22/21 03:31 Olanzapine 5 Mg Tablet PO 5 mg Q6H PRN Administration agitation Risperidone 2 mg 01/21/21 21:00 01/24/21 21:44 Risperidone 2 Mg Tablet PO 2 mg BEDTIME SELMA Administration Risperidone 1 mg 01/22/21 09:00 01/25/21 08:23 Risperidone 1 Mg Tablet PO 1 mg DAILY SELMA Administration Rivaroxaban 20 mg 01/15/21 17:00 01/24/21 16:58 Rivaroxaban 20 Mg Tablet PO 20 mg DAILY@1700 SELMA Administration Trazodone HCl 50 mg 01/15/21 21:07 01/22/21 21:23 Trazodone Hcl 50 Mg Tablet PO 50 mg BEDTIME PRN Administration Insomnia Allergies Allergies Allergy/AdvReac Type Severity Reaction Status Date / Time aspirin [ASA] Allergy Intermediate GI PAIN, Unverified 01/15/21 15:19 upset stomach Assessment & Plan Assessment & Plan (1) Bipolar 1 disorder, manic, moderate: Status: Acute Code(s): F31.12 - Bipolar disorder, current episode manic without psychotic features, moderate Greater than 50% of the session was spent on counseling and/or coordination of care Reason for contiued inpatient stay Substantial Risk for: rapid decompensation
[2021-01-25] MEDS: Acetaminophen 325 MG TABLET 650 MG PO ×2 (09:03→21:41)
[2021-01-25] MEDS: Artificial Tears 15 ML DROPS 2 DROP EYE-BOTH (09:04)
[2021-01-25] MEDS: Rivaroxaban 20 MG TABLET PO (17:39)
[2021-01-25 18:00] VITALS: BP 105/56; PULSE 111; TEMP 36.3
[2021-01-25] MEDS: traZODone HCL 50 MG TABLET PO (21:41)
[2021-01-25] MEDS: risperiDONE 2 MG TABLET PO (21:41)
[2021-01-25] MEDS: LORazepam 1 MG TABLET PO (21:41)
[2021-01-26] MEDS: traZODone HCL 50 MG TABLET PO (02:08)
[2021-01-26 06:25] VITALS: BP 102/51; PULSE 64; RESP 16; TEMP 36.1; O2SAT 97
[2021-01-26] MEDS: Levothyroxine Sodium 112 MCG TABLET PO (06:36)
[2021-01-26] MEDS: risperiDONE 1 MG TABLET PO (08:18)
[2021-01-26] MEDS: Dronedarone HCl 400 MG TABLET PO ×2 (08:19→21:18)
[2021-01-26] MEDS: Divalproex Sodium 500 MG TABLET.DR PO ×2 (08:19→21:18)
[2021-01-26 08:30] VITALS: BP 94/46; PULSE 62
[2021-01-26] MEDS: Artificial Tears 15 ML DROPS 2 DROP EYE-BOTH (12:20)
--- NOTE | 2021-01-26 14:51 | HO.PSYCHPN ---
Subjective Subjective Date of Service: 01/26/21 Reason For Visit: si Interim History: The patient denies new symptoms. She was seen in the kitchen, on the floor trying to find prune juice . She looked pleasently confused and cooperative. Medication Compliance: Yes Side effects from medications: No Attending Groups: Intermittent (Over the weekend, attended 1 group) Review of Systems Review of Systems Yes all other systems are reviewed and are negative Mental Status Exam Mental Status Exam Patient Appearance: Disheveled (On hospital gowns) Patient Orientation: Person, Place and Situation Level of Consciousness: Awake Patient Behavior: Confused Mood Description: Calm Affect Description: Calm Patient Cognition Impaired: Yes Ability to Follow Directions: Good Speech Pattern: Clear Hallucinations: None Delusions: Not Present Thought Process: Slowed Thinking Judgement: Fair Diagnostics Vital Signs (24Hr): Vital Signs - 24 hr 01/25/21 18:00 01/26/21 06:25 01/26/21 08:30 Temperature 97.4 F 97 F Pulse Rate 111 H 64 62 Respiratory Rate 16 Blood Pressure 105/56 L 102/51 L 94/46 L Pulse Oximetry 97 Body Mass Index 30.6 Labs Results: 01/15/21 07:28 01/16/21 07:49 Imaging Radiology Impressions: ITS Impressions Head CT 01/15/21 06:29 IMPRESSION: 1. No acute intracranial abnormalities. 2. Mild intercranial atherosclerosis; otherwise, normal unenhanced CT of the head. No intracranial hemorrhage, tumors or acute infarcts. Medications Medications Current Medications Generic Name Dose Route Start Last Admin Trade Name Freq PRN Reason Stop Dose Admin Acetaminophen 650 mg 01/15/21 21:07 01/25/21 21:41 Acetaminophen 325 Mg Tablet PO 650 mg Q6H PRN Administration Headache/Pain Mild Scale (1-3) Al Hydroxide/Mg Hydroxide 30 ml 01/15/21 21:07 01/18/21 18:45 Magnesium Hydrox/Alum Hydrox 30 Ml Oral.Susp PO 30 ml Q6H PRN Administration Heartburn/Nausea Artificial Tears 2 drop 01/24/21 19:38 01/26/21 12:20 Artificial Tears 15 Ml Drops EYE-BOTH 2 drop Q4H PRN Administration Dry Eyes Benztropine Mesylate 1 mg 01/21/21 20:02 01/21/21 22:25 Benztropine Mesylate 1 Mg Tablet PO 1 mg ONCE PRN Administration extrapyramidal symptoms Divalproex Sodium 500 mg 01/20/21 21:00 01/26/21 08:19 Divalproex Sodium 500 Mg Tablet.Dr PO 500 mg BID SELMA Administration Dronedarone 400 mg 01/15/21 13:15 01/26/21 08:19 Dronedarone Hcl 400 Mg Tablet PO 400 mg BID SELMA Administration Hydroxyzine HCl 25 mg 01/15/21 21:07 01/22/21 03:31 Hydroxyzine Hcl 25 Mg Tablet PO 25 mg Q6H PRN Administration Anxiety Levothyroxine Sodium 112 mcg 01/15/21 13:04 01/26/21 06:36 Levothyroxine Sodium 112 Mcg Tablet PO 112 mcg DAILY@0600 SELMA Administration Lorazepam 1 mg 01/19/21 21:00 01/25/21 21:41 Lorazepam 1 Mg Tablet PO 1 mg BEDTIME SELMA Administration Magnesium Hydroxide 30 ml 01/15/21 21:07 01/21/21 09:22 Milk Of Magnesia 30 Ml Oral.Susp PO 15 ml DAILY PRN Administration Constipation Metoprolol Succinate 50 mg 01/15/21 13:15 01/26/21 08:30 Metoprolol Succinate Er 50 Mg Tab.Er.24h PO Not Given DAILY SELAM Protocol Olanzapine 5 mg 01/15/21 21:41 01/22/21 03:31 Olanzapine 5 Mg Tablet PO 5 mg Q6H PRN Administration agitation Risperidone 2 mg 01/21/21 21:00 01/25/21 21:41 Risperidone 2 Mg Tablet PO 2 mg BEDTIME SELMA Administration Risperidone 1 mg 01/22/21 09:00 01/26/21 08:18 Risperidone 1 Mg Tablet PO 1 mg DAILY SELMA Administration Rivaroxaban 20 mg 01/15/21 17:00 01/25/21 17:39 Rivaroxaban 20 Mg Tablet PO 20 mg DAILY@1700 SELMA Administration Trazodone HCl 50 mg 01/15/21 21:07 01/26/21 02:08 Trazodone Hcl 50 Mg Tablet PO 50 mg BEDTIME PRN Administration Insomnia Allergies Allergies Allergy/AdvReac Type Severity Reaction Status Date / Time aspirin [ASA] Allergy Intermediate GI PAIN, Unverified 01/15/21 15:19 upset stomach Assessment & Plan Assessment & Plan (1) Bipolar disorder: Status: Acute Code(s): F31.9 - Bipolar disorder, unspecified Assessment and Plan: No evidence of chau at this moment (2) PTSD (post-traumatic stress disorder): Status: Acute Code(s): F43.10 - Post-traumatic stress disorder, unspecified Assessment and Plan: Stable Greater than 50% of the session was spent on counseling and/or coordination of care Reason for contiued inpatient stay Substantial Risk for: inability to function
[2021-01-26 18:00] VITALS: BP 104/62; PULSE 94; TEMP 36
[2021-01-26] MEDS: Rivaroxaban 20 MG TABLET PO (18:23)
[2021-01-26] MEDS: risperiDONE 2 MG TABLET PO (21:18)
[2021-01-26] MEDS: LORazepam 1 MG TABLET PO (21:18)
[2021-01-26] MEDS: Docusate Sodium 100 MG CAPSULE 200 MG PO (21:18)
[2021-01-27 06:50] VITALS: BP 142/64; PULSE 66; RESP 18; TEMP 36; O2SAT 96
[2021-01-27] MEDS: Levothyroxine Sodium 112 MCG TABLET PO (07:05)
[2021-01-27 07:31] VITALS: BP 110/59; PULSE 78
[2021-01-27] MEDS: Metoprolol Succinate ER 50 MG TAB.ER.24H PO (07:31)
[2021-01-27] MEDS: Divalproex Sodium 500 MG TABLET.DR PO ×2 (07:33→20:11)
[2021-01-27] MEDS: Dronedarone HCl 400 MG TABLET PO ×2 (07:33→20:11)
[2021-01-27] MEDS: risperiDONE 1 MG TABLET PO (07:33)
--- NOTE | 2021-01-27 11:52 | P.PNPSI_ITS ---
Subjective Subjective Date of Service: 01/27/21 Reason For Visit: si Subjective Notes: Conditional Voluntary Interim History: Pt much more organized and coherent. She reports she thought she was in movie- Tuesday. She states she thought people were trying to hurt her and her family. She also reports that she does not want to have covid vaccine, due to fear of side effects and she states she thought she was being forced to get it here in hospital. She denies SI/HI. She reports sleeping well. She reports having constipation over the weekend, but this is resolved now. She had BM yesterday. She has been visible in the unit, attends groups. No behavioral concern. Medication Compliance: Yes Side effects from medications: No Review of Systems Review of Systems Yes all other systems are reviewed and are negative Cardiovascular: Reports as per HPI, Reports no additional cardiovascular complaints, Denies acrocyanosis, Denies cool extremities, Denies painful fingertips, Denies chest pain, Denies chest pain at rest, Denies diaphoresis, Denies syncope, Denies irregular heart rhythm, Denies claudication, Denies leg edema, Denies lightheadedness, Denies palpitations and Denies dyspnea Respiratory: Denies dyspnea Denies syncope Psychiatric: Reports anxiety, Reports depression, Reports hallucinations and Reports suicidal ideation (denies) Endocrine: Denies palpitations Mental Status Exam Mental Status Exam Narrative: Appearance: casually groomed, good hygiene, in NAD Behavior: calm, cooperative Psychomotor: no agitation or retardation noted Speech: clear, normal rate/rhythm/volume, spontaneous TP: linear, tangential at times TC: some residual paranoia, looking forward to return home and continue OP treat ment Mood: fine Affect:congruent, non labile SI:none HI: none AH/VH:denies Delusions:denies Insight/judgment: improving Memory/cog: alert, oriented x 3. grossly intact to conversational testing. Diagnostics Vital Signs (24Hr): Vital Signs - 24 hr 01/26/21 18:00 01/27/21 06:50 01/27/21 07:31 Temperature 96.8 F 96.8 F Pulse Rate 94 66 78 Respiratory Rate 18 Blood Pressure 104/62 142/64 H 110/59 L Pulse Oximetry 96 Body Mass Index 30.6 Labs Results: 01/15/21 07:28 01/16/21 07:49 Imaging Radiology Impressions: ITS Impressions Head CT 01/15/21 06:29 IMPRESSION: 1. No acute intracranial abnormalities. 2. Mild intercranial atherosclerosis; otherwise, normal unenhanced CT of the head. No intracranial hemorrhage, tumors or acute infarcts. Medications Medications Current Medications Generic Name Dose Route Start Last Admin Trade Name Freq PRN Reason Stop Dose Admin Acetaminophen 650 mg 01/15/21 21:07 01/25/21 21:41 Acetaminophen 325 Mg Tablet PO 650 mg Q6H PRN Administration Headache/Pain Mild Scale (1-3) Al Hydroxide/Mg Hydroxide 30 ml 01/15/21 21:07 01/18/21 18:45 Magnesium Hydrox/Alum Hydrox 30 Ml Oral.Susp PO 30 ml Q6H PRN Administration Heartburn/Nausea Artificial Tears 2 drop 01/24/21 19:38 01/26/21 12:20 Artificial Tears 15 Ml Drops EYE-BOTH 2 drop Q4H PRN Administration Dry Eyes Benztropine Mesylate 1 mg 01/21/21 20:02 01/21/21 22:25 Benztropine Mesylate 1 Mg Tablet PO 1 mg ONCE PRN Administration extrapyramidal symptoms Divalproex Sodium 500 mg 01/20/21 21:00 01/27/21 07:33 Divalproex Sodium 500 Mg Tablet.Dr PO 500 mg BID SELMA Administration Docusate Sodium 200 mg 01/26/21 21:00 01/26/21 21:18 Docusate Sodium 100 Mg Capsule PO 200 mg BEDTIME SELMA Administration Dronedarone 400 mg 01/15/21 13:15 01/27/21 07:33 Dronedarone Hcl 400 Mg Tablet PO 400 mg BID SELMA Administration Hydroxyzine HCl 25 mg 01/15/21 21:07 01/22/21 03:31 Hydroxyzine Hcl 25 Mg Tablet PO 25 mg Q6H PRN Administration Anxiety Levothyroxine Sodium 112 mcg 01/15/21 13:04 01/27/21 07:05 Levothyroxine Sodium 112 Mcg Tablet PO 112 mcg DAILY@0600 SELMA Administration Lorazepam 1 mg 01/19/21 21:00 01/26/21 21:18 Lorazepam 1 Mg Tablet PO 1 mg BEDTIME SELMA Administration Magnesium Hydroxide 30 ml 01/15/21 21:07 01/21/21 09:22 Milk Of Magnesia 30 Ml Oral.Susp PO 15 ml DAILY PRN Administration Constipation Metoprolol Succinate 50 mg 01/15/21 13:15 01/27/21 07:31 Metoprolol Succinate Er 50 Mg Tab.Er.24h PO 50 mg DAILY SELMA Administration Protocol Olanzapine 5 mg 01/15/21 21:41 01/22/21 03:31 Olanzapine 5 Mg Tablet PO 5 mg Q6H PRN Administration agitation Risperidone 2 mg 01/21/21 21:00 01/26/21 21:18 Risperidone 2 Mg Tablet PO 2 mg BEDTIME SELMA Administration Risperidone 1 mg 01/22/21 09:00 01/27/21 07:33 Risperidone 1 Mg Tablet PO 1 mg DAILY SELMA Administration Rivaroxaban 20 mg 01/15/21 17:00 01/26/21 18:23 Rivaroxaban 20 Mg Tablet PO 20 mg DAILY@1700 SELMA Administration Trazodone HCl 50 mg 01/15/21 21:07 01/26/21 02:08 Trazodone Hcl 50 Mg Tablet PO 50 mg BEDTIME PRN Administration Insomnia Allergies Allergies Allergy/AdvReac Type Severity Reaction Status Date / Time aspirin [ASA] Allergy Intermediate GI PAIN, Unverified 01/15/21 15:19 upset stomach Assessment & Plan Assessment & Plan (1) Bipolar disorder: Status: Acute Code(s): F31.9 - Bipolar disorder, unspecified Assessment and Plan: 1. continue current medications. (2) PTSD (post-traumatic stress disorder): Status: Acute Code(s): F43.10 - Post-traumatic stress disorder, unspecified Assessment and Plan: Stable Greater than 50% of the session was spent on counseling and/or coordination of care Reason for contiued inpatient stay Substantial Risk for: inability to function
[2021-01-27 18:00] VITALS: BP 141/63; PULSE 73; TEMP 35.9
[2021-01-27] MEDS: Rivaroxaban 20 MG TABLET PO (18:10)
[2021-01-27] MEDS: LORazepam 1 MG TABLET PO (20:11)
[2021-01-27] MEDS: risperiDONE 2 MG TABLET PO (20:11)
[2021-01-27] MEDS: Docusate Sodium 100 MG CAPSULE 200 MG PO (20:11)
[2021-01-27] MEDS: Acetaminophen 325 MG TABLET 650 MG PO (22:11)
--- NOTE | 2021-01-28 | ECG_ITS ---
Test Reason : QTC PROLONGATION Blood Pressure : / mmHG Vent. Rate : 063 BPM Atrial Rate : 063 BPM P-R Int : 192 ms QRS Dur : 098 ms QT Int : 404 ms P-R-T Axes : 064 008 094 degrees QTc Int : 413 ms Normal sinus rhythm Low voltage QRS Cannot rule out Anterior infarct , age undetermined Abnormal ECG When compared with ECG of 22-JAN-2021 14:38, Minimal criteria for Anterior infarct are now Present T wave inversions less evident in anterior leads Nonspecific T wave abnormality, worse in Lateral leads QT has shortened Referred By: Marry Brown Electronically Signed By:Paul Setin
[2021-01-28 05:31] VITALS: BP 160/70; PULSE 77; RESP 16; TEMP 36.2; O2SAT 97
[2021-01-28] MEDS: Levothyroxine Sodium 112 MCG TABLET PO (05:31)
[2021-01-28 06:54] VITALS: BP 145/65
[2021-01-28 08:47] VITALS: BP 160/70; PULSE 77
[2021-01-28] MEDS: Metoprolol Succinate ER 50 MG TAB.ER.24H PO (08:47)
[2021-01-28] MEDS: Dronedarone HCl 400 MG TABLET PO ×2 (08:47→21:12)
[2021-01-28] MEDS: risperiDONE 1 MG TABLET PO (08:47)
[2021-01-28] MEDS: Divalproex Sodium 500 MG TABLET.DR PO ×2 (08:47→21:12)
[2021-01-28] MEDS: Acetaminophen 325 MG TABLET 650 MG PO (15:23)
--- NOTE | 2021-01-28 15:28 | P.PNPSI_ITS ---
Subjective Subjective Date of Service: 01/28/21 Reason For Visit: si Interim History: Pt continues to present as more coherent, less paranoid delusions also noted some residual symptoms related to internet/covid vaccines- which reports not her usual. She reports she is sleeping and eating better. She reports medications helping her to feel less anxious. She denies SI/HI. Review of Systems Review of Systems Yes all other systems are reviewed and are negative and Unobtainable due to mental status Eyes: Reports eye discharge (reports a.m. conjunctivitis sx-asked to show team in the a.m.) Cardiovascular: Reports as per HPI, Reports no additional cardiovascular complaints, Denies acrocyanosis, Denies cool extremities, Denies painful fingertips, Denies chest pain, Denies chest pain at rest, Denies diaphoresis, De nies syncope, Denies irregular heart rhythm, Denies claudication, Denies leg edema, Denies lightheadedness, Denies palpitations and Denies dyspnea Respiratory: Denies dyspnea Denies syncope Psychiatric: Reports anxiety, Reports depression, Reports hallucinations and Reports suicidal ideation (denies) Endocrine: Denies palpitations Mental Status Exam Mental Status Exam Narrative: Appearance: casually groomed, good hygiene, in NAD Behavior: calm, cooperative Psychomotor: no agitation or retardation noted Speech: clear, normal rate/rhythm/volume, spontaneous TP: linear, tangential at times TC: some residual paranoia, looking forward to return home and continue OP treatment Mood: fine Affect:congruent, non labile SI:none HI: none AH/VH:denies Delusions:denies Insight/judgment: improving Memory/cog: alert, oriented x 3. grossly intact to conversational testing. Patient Appearance: Disheveled (On hospital gowns) Patient Orientation: Person, Place and Situation Level of Consciousness: Awake Patient Behavior: Confused Mood Description: Calm Affect Description: Calm Patient Cognition Impaired: Yes Ability to Follow Directions: Good Speech Pattern: Clear Memory Description: Remote Impaired and Episodic Impaired Diagnostics Vital Signs (24Hr): Vital Signs - 24 hr 01/27/21 18:00 01/28/21 05:31 01/28/21 06:54 Temperature 96.7 F L 97.1 F Pulse Rate 73 77 Respiratory Rate 16 Blood Pressure 141/63 H 160/70 H 145/65 H Pulse Oximetry 97 01/28/21 08:47 Temperature Pulse Rate 77 Respiratory Rate Blood Pressure 160/70 H Pulse Oximetry Body Mass Index 30.6 Labs Results: 01/15/21 07:28 01/16/21 07:49 Imaging Radiology Impressions: ITS Impressions Head CT 01/15/21 06:29 IMPRESSION: 1. No acute intracranial abnormalities. 2. Mild intercranial atherosclerosis; otherwise, normal unenhanced CT of the head. No intracranial hemorrhage, tumors or acute infarcts. Medications Medications Current Medications Generic Name Dose Route Start Last Admin Trade Name Freq PRN Reason Stop Dose Admin Acetaminophen 650 mg 01/15/21 21:07 01/28/21 15:23 Acetaminophen 325 Mg Tablet PO 650 mg Q6H PRN Administration Headache/Pain Mild Scale (1-3) Al Hydroxide/Mg Hydroxide 30 ml 01/15/21 21:07 01/18/21 18:45 Magnesium Hydrox/Alum Hydrox 30 Ml Oral.Susp PO 30 ml Q6H PRN Administration Heartburn/Nausea Artificial Tears 2 drop 01/24/21 19:38 01/26/21 12:20 Artificial Tears 15 Ml Drops EYE-BOTH 2 drop Q4H PRN Administration Dry Eyes Benztropine Mesylate 1 mg 01/21/21 20:02 01/21/21 22:25 Benztropine Mesylate 1 Mg Tablet PO 1 mg ONCE PRN Administration extrapyramidal symptoms Divalproex Sodium 500 mg 01/20/21 21:00 01/28/21 08:47 Divalproex Sodium 500 Mg Tablet.Dr PO 500 mg BID SELMA Administration Docusate Sodium 200 mg 01/26/21 21:00 01/27/21 20:11 Docusate Sodium 100 Mg Capsule PO 200 mg BEDTIME SELMA Administration Dronedarone 400 mg 01/15/21 13:15 01/28/21 08:47 Dronedarone Hcl 400 Mg Tablet PO 400 mg BID SELMA Administration Hydroxyzine HCl 25 mg 01/15/21 21:07 01/22/21 03:31 Hydroxyzine Hcl 25 Mg Tablet PO 25 mg Q6H PRN Administration Anxiety Levothyroxine Sodium 112 mcg 01/15/21 13:04 01/28/21 05:31 Levothyroxine Sodium 112 Mcg Tablet PO 112 mcg DAILY@0600 SELMA Administration Lorazepam 1 mg 01/19/21 21:00 01/27/21 20:11 Lorazepam 1 Mg Tablet PO 1 mg BEDTIME SELMA Administration Magnesium Hydroxide 30 ml 01/15/21 21:07 01/21/21 09:22 Milk Of Magnesia 30 Ml Oral.Susp PO 15 ml DAILY PRN Administration Constipation Metoprolol Succinate 50 mg 01/15/21 13:15 01/28/21 08:47 Metoprolol Succinate Er 50 Mg Tab.Er.24h PO 50 mg DAILY SELMA Administration Protocol Olanzapine 5 mg 01/15/21 21:41 01/22/21 03:31 Olanzapine 5 Mg Tablet PO 5 mg Q6H PRN Administration agitation Risperidone 2 mg 01/21/21 21:00 01/27/21 20:11 Risperidone 2 Mg Tablet PO 2 mg BEDTIME SELMA Administration Risperidone 1 mg 01/22/21 09:00 01/28/21 08:47 Risperidone 1 Mg Tablet PO 1 mg DAILY SELMA Administration Rivaroxaban 20 mg 01/15/21 17:00 01/27/21 18:10 Rivaroxaban 20 Mg Tablet PO 20 mg DAILY@1700 SELMA Administration Trazodone HCl 50 mg 01/15/21 21:07 01/26/21 02:08 Trazodone Hcl 50 Mg Tablet PO 50 mg BEDTIME PRN Administration Insomnia Allergies Allergies Allergy/AdvReac Type Severity Reaction Status Date / Time aspirin [ASA] Allergy Intermediate GI PAIN, Unverified 01/15/21 15:19 upset stomach Assessment & Plan Assessment & Plan (1) Bipolar disorder: Status: Acute Code(s): F31.9 - Bipolar disorder, unspecified Assessment and Plan: 1. continue current medications. (2) PTSD (post-traumatic stress disorder): Status: Acute Code(s): F43.10 - Post-traumatic stress disorder, unspecified Assessment and Plan: Stable Greater than 50% of the session was spent on counseling and/or coordination of care Reason for contiued inpatient stay Substantial Risk for: inability to function
[2021-01-28] MEDS: Rivaroxaban 20 MG TABLET PO (17:39)
[2021-01-28 18:00] VITALS: BP 115/57; PULSE 69; TEMP 36.3
[2021-01-28] MEDS: risperiDONE 2 MG TABLET PO (21:12)
[2021-01-28] MEDS: Docusate Sodium 100 MG CAPSULE 200 MG PO (21:12)
[2021-01-28] MEDS: LORazepam 1 MG TABLET PO (21:13)
[2021-01-29] MEDS: traZODone HCL 50 MG TABLET PO (02:29)
[2021-01-29] MEDS: hydrOXYzine HCL 25 MG TABLET PO (02:29)
[2021-01-29 06:29] VITALS: BP 137/63; PULSE 64; RESP 18; TEMP 36.7; O2SAT 97
[2021-01-29] MEDS: Levothyroxine Sodium 112 MCG TABLET PO (06:49)
[2021-01-29 07:00] VITALS: BMI 32.5
[2021-01-29 08:27] VITALS: BP 137/63; PULSE 64
[2021-01-29] MEDS: risperiDONE 1 MG TABLET PO (08:27)
[2021-01-29] MEDS: Metoprolol Succinate ER 50 MG TAB.ER.24H PO (08:27)
[2021-01-29] MEDS: Divalproex Sodium 500 MG TABLET.DR PO (08:27)
[2021-01-29] MEDS: Dronedarone HCl 400 MG TABLET PO (08:28)
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
--- NOTE | 2021-02-16 17:36 | PM.EVENT ---
Event Note Date of Service: 02/16/21 Event Note: Call from pt's requesting intervention. Bautista Andinorecjulián [phone]. Pt has not slept for six days, approx 55 hours. Tells I cannot shut off my brain. reports pt has been well since discharge but still does not sleep. Lorazepam has not been working. 's brother, a cook restaurant suggested he call for recommendations. Pt not keeping to med times-i.e. has already taken HS meds for tonight this afternoon. describes pt as weak, and lethargic, not walking well. Regime: Depakote 500 mg bid, Colace 200 mg daily; Lorazepam 1 mg hs, Risperdal 1 mg a.m. 2 mg h.s. Pt to see provider at [facility] on 02/18. is concerned as pt's appt with Dr. Santos has been postponed until possibly 02/24 and he believes this provider is not as familiar with pt. Case reviewed... Encouraged to bring pt to ER for medical clearance and probable readmission. He declines stating pt is not interested in re-admit. Asks for intervention to keep pt at home. Plan -Increase Depakote to 500 mg a.m. 750 mg h.s. -Continue Lorazepam, Risperdal -Labs/EKG on 02/18 -ER as needed. - would like someone to call on 02/17 to check in on pt's progress.
== END 2021-01-29 15:45 | disposition home or self-care (01) | DRG 753 ==
LOC: HO.ED 19:55 → HO.PM5 21:14
PROVIDERS: Admitting Provider Psychiatry & Neurology Psychiatry; Emergency Provider Emergency Medicine Emergency Medical Services; Visit Provider Social Worker
DX: F31.12 Bipolar disorder, current episode manic without psychotic features, moderate (principal); I48.0 Paroxysmal atrial fibrillation; I10 Essential (primary) hypertension; F43.10 Post-traumatic stress disorder, unspecified; R94.31 Abnormal electrocardiogram [ECG] [EKG]; E11.9 Type 2 diabetes mellitus without complications; I44.7 Left bundle-branch block, unspecified; Z20.822 Contact with and (suspected) exposure to COVID-19; Z88.6 Allergy status to analgesic agent; Z87.891 Personal history of nicotine dependence; Z79.01 Long term (current) use of anticoagulants; Z79.890 Hormone replacement therapy; Z79.899 Other long term (current) drug therapy
CPT/HCPCS: 36415; 70450; 80053; 80143; 80164; 80179; 80320; 81001; 81003; 82140; 82947; 83735; 84132; 84443; 85025; 85610; 85730; 87086; 87635; 93005; 99232; 99285

== ENCOUNTER 2021-02-19 10:28 | Outpatient (REF) | payer BC, SELFPAY ==
--- NOTE | 2021-02-19 10:43 | ECG_ITS ---
Test Reason : R/O QTC PROLONG Blood Pressure : / mmHG Vent. Rate : 072 BPM Atrial Rate : 072 BPM P-R Int : 194 ms QRS Dur : 116 ms QT Int : 436 ms P-R-T Axes : 062 013 108 degrees QTc Int : 477 ms Normal sinus rhythm Incomplete left bundle branch block Nonspecific ST and T wave abnormality Prolonged QT Abnormal ECG When compared with ECG of 28-JAN-2021 15:38, Incomplete left bundle branch block is now Present T wave amplitude has increased in Anterior leads QT has lengthened Referred By: Jennifer Puentes Electronically Signed By:Paul Stein
[2021-02-19 11:21] LABS: MANUAL DIFF FLAG NO
[2021-02-19 11:41] LABS: Basophils Absolute Auto 0.1 X10*3/uL (0.0-0.2); Eosinophils Absolute Auto 0.3 X10*3/uL (0.0-0.4); Eosinophils Percent Auto 4.3 % (0-4); Hematocrit 34.9 % (37-47); Hemoglobin 11.3 g/dl (12.0-16.0); Imm Gran Abs Auto 0.05 X10*3/uL (0.00-0.03); Imm Gran Pct Auto 0.9 % (0.0-0.4); Lymphocytes Absolute Auto 1.9 X10*3/uL (1.2-4.9); Lymphocytes Percent Auto 32.3 % (20-40); Mean Corpuscular HGB Conc 32.4 g/dl (31.0-35.0); Mean Corpuscular Hemoglobin 28.8 pg (27.0-33.0); Mean Corpuscular Volume 88.8 fL (80-98); Mean Platelet Volume 9.6 fL (9.4-12.3); Monocytes Absolute Auto 0.5 X10*3/uL (0.1-1.2); Monocytes Percent Auto 7.7 % (2-11); Neutrophils Absolute Auto 3.2 X10*3/uL (2.0-8.3); Neutrophils Percent Auto 53.8 % (45-73); Platelet Count 174 X10*3/uL (160-400); Red Blood Count 3.93 X10*6/uL (4.20-5.50); Red Cell Distribution Width 13.6 % (11.0-16.0); White Blood Count 5.9 X10*3/uL (4.8-10.8)
[2021-02-19 12:03] LABS: Valproate 66.5 mcg/mL (50.0-100.0)
[2021-02-19 12:17] LABS: TSH reflex Free T4 3.28 uIU/mL (0.32-4.0)
[2021-02-19 12:22] LABS: Alanine Aminotransferase 12 U/L (0-31); Albumin Level 3.6 g/dL (3.5-5.0); Alkaline Phosphatase 81 U/L (39-117); Aspartate Amino Transferase 11 U/L (5-31); Bilirubin Direct < 0.2 mg/dL (0.0-0.5); Bilirubin Total 0.3 mg/dL (0.0-1.0); Cholesterol 208 mg/dL; HDL Cholesterol 48 mg/dL; LDL Cholesterol Calculated 84 mg/dl; Total Protein 6.7 g/dL (6.5-8.0); Triglycerides 381 mg/dL
[2021-02-19 12:30] LABS: Alanine Aminotransferase 12 U/L (0-31); Albumin Level 3.6 g/dL (3.5-5.0); Alkaline Phosphatase 80 U/L (39-117); Anion Gap 16 (12-20); Aspartate Amino Transferase 10 U/L (5-31); Bilirubin Total 0.3 mg/dL (0.0-1.0); Blood Urea Nitrogen 14 mg/dL (9-16); Calcium 8.5 mg/dL (8.4-10.2); Carbon Dioxide 24 mmol/L (22-29); Chloride 104 mmol/L (96-108); Estimated Glomerular Filt Rate > 60; Glucose Random 236 mg/dL (60-115); Potassium 4.4 mmol/L (3.3-5.1); Sodium 140 mmol/L (135-145); Total Protein 6.7 g/dL (6.5-8.0)
[2021-02-19 13:10] LABS: Estimated Average Glucose 143 mg/dL; Hemoglobin A1c % 6.6 %
== END 2021-02-19 10:29 | disposition home or self-care (01) ==
LOC: HO.LAB 10:28
PROVIDERS: PCP Internal Medicine; Visit Provider Clinical Nurse Specialist Psychiatric/Mental Health, Adult
DX: F31.9 Bipolar disorder, unspecified (principal); Z79.899 Other long term (current) drug therapy
CPT/HCPCS: 36415; 80053; 80061; 80076; 80164; 82248; 83036; 84443; 85025; 93005

== ENCOUNTER 2021-04-02 10:19 | Outpatient (REF) | payer BC, SELFPAY ==
--- NOTE | ~2021-04-02 | XR_ITS ---
EXAMINATION: XR CHEST CLINICAL INFORMATION: Persistent atrial fibrillation. COMPARISON: 12/07/2018 chest. TECHNIQUE: 2 views of the chest were obtained. FINDINGS: No significant abnormality is noted involving the heart, lungs, mediastinum, bony thorax or soft tissues. XR/XR chest 2V IMPRESSION: No acute cardiopulmonary process.
[2021-04-02 12:18] LABS: Hematocrit 35.4 % (37-47); Hemoglobin 11.6 g/dl (12.0-16.0); Mean Corpuscular HGB Conc 32.8 g/dl (31.0-35.0); Mean Corpuscular Hemoglobin 28.8 pg (27.0-33.0); Mean Corpuscular Volume 87.8 fL (80-98); Mean Platelet Volume 9.3 fL (9.4-12.3); Platelet Count 271 X10*3/uL (160-400); Red Blood Count 4.03 X10*6/uL (4.20-5.50); Red Cell Distribution Width 13.6 % (11.0-16.0); White Blood Count 6.5 X10*3/uL (4.8-10.8)
[2021-04-02 12:41] LABS: B Type Natriuretic Peptide 307 pg/mL (<100)
[2021-04-02 12:58] LABS: TSH reflex Free T4 2.82 uIU/mL (0.32-4.0)
[2021-04-02 13:07] LABS: Alanine Aminotransferase 14 U/L (0-31); Albumin Level 3.5 g/dL (3.5-5.0); Alkaline Phosphatase 63 U/L (39-117); Anion Gap 15 (12-20); Aspartate Amino Transferase 13 U/L (5-31); Bilirubin Direct < 0.2 mg/dL (0.0-0.5); Bilirubin Total 0.3 mg/dL (0.0-1.0); Blood Urea Nitrogen 15 mg/dL (9-16); Calcium 8.8 mg/dL (8.4-10.2); Carbon Dioxide 27 mmol/L (22-29); Chloride 101 mmol/L (96-108); Estimated Glomerular Filt Rate > 60; Glucose Random 122 mg/dL (60-115); Potassium 4.9 mmol/L (3.3-5.1); Sodium 138 mmol/L (135-145); Total Protein 6.6 g/dL (6.5-8.0)
== END 2021-04-02 10:20 | disposition home or self-care (01) ==
LOC: HO.LAB 10:19
PROVIDERS: PCP Internal Medicine; Visit Provider Internal Medicine Cardiovascular Disease
DX: I48.19 Other persistent atrial fibrillation (principal); R06.02 Shortness of breath; R60.0 Localized edema; Z79.899 Other long term (current) drug therapy
CPT/HCPCS: 36415; 71046; 80048; 80076; 83880; 84443; 85027; 93005

== ENCOUNTER → 2021-04-20 09:35 | Day surgery (SDC) | payer BC, SELFPAY ==
--- NOTE | 2021-04-17 13:44 | P.CONAN_ITS ---
HPI - Anesthesia Eval Consult details Narrative: 65yo F for Cardioversion Xarelto for afib Pt in Sinue Rhythm in preop. [facility] Active Problems Active Problems: All Active Problems (Updated 04/14/21 @ 13:18 by Yoon Welch) PTSD (post-traumatic stress disorder) (Acute) Bipolar 1 disorder, manic, moderate (Acute) Prolonged QT interval (Acute) Vertigo (Acute) SOB (shortness of breath) (Acute) Leg edema (Acute) Persistent atrial fibrillation (Acute) Paroxysmal atrial fibrillation (Acute) LBBB (left bundle branch block) (Acute) HTN (hypertension) (Acute) Diabetes mellitus (Acute) PAF (paroxysmal atrial fibrillation) (Acute) Past Medical History Medical History (Updated 04/17/21 @ 13:53 by Meena Veliz) Arthritis Bipolar 1 disorder Diabetes mellitus History of cardioversion History of wheezing HTN (hypertension) Hypothyroidism LBBB (left bundle branch block) On anticoagulant therapy On beta carlos at home PAF (paroxysmal atrial fibrillation) Paroxysmal atrial fibrillation PTSD (post-traumatic stress disorder) Vertigo Family History Family History Father No problems noted. Mother No problems noted. Surgical History Surgical History (Updated 04/14/21 @ 13:06 by Yoon Welch) History of eye surgery Hx of arthroscopy of right knee Hx of section Hx of cholecystectomy Hx of colonoscopy Social History Social History Household Members: Family Household Members Other:: daughter + Housing: House Do you presently have visiting nurse or other home services: No Alcohol intake: former Patient Tobacco Use Status: Former Tobacco user Quit Date: 1989 Second Hand Smoke Exposure: No Advance Directives: No Advance Directives Information Provided: Yes service: No Sexual orientation: Straight/Heterosexual Meds Allergies Allergy/AdvReac Type Severity Reaction Status Date / Time aspirin [ASA] Allergy Intermediate GI PAIN, Verified 04/20/21 09:54 upset stomach Home Medications Medication Instructions Recorded Confirmed Last Taken Type docusate sodium 2 cap PO BEDTIME 04/14/21 04/14/21 Unknown History Exam Exam Date and Time: April 17, 2021 1344 Pertinent Lab Results Pertinent Lab Results: Laboratory Tests 04/02/21 04/02/21 11:35 11:35 WBC 6.5 Hgb 11.6 L Hct 35.4 L Plt Count 271 D Sodium 138 Potassium 4.9 Chloride 101 Carbon Dioxide 27 BUN 15 Creatinine 0.80 Narrative Narrative: EKG 03/2021 atrial fibrillation with rapid ventricular @ 101, with left bundle-branch block Assessment and Plan Assessment Anesthesia Assessment: Chart Reviewed
--- NOTE | 2021-04-20 09:56 | ECG_ITS ---
Test Reason : PAF Blood Pressure : / mmHG Vent. Rate : 059 BPM Atrial Rate : 059 BPM P-R Int : 196 ms QRS Dur : 132 ms QT Int : 486 ms P-R-T Axes : 043 -06 071 degrees QTc Int : 481 ms Sinus bradycardia Left bundle branch block Abnormal ECG When compared with ECG of 19-FEB-2021 09:53, No significant change was found Referred By: Kevin Mendez Electronically Signed By:Paul Stein
--- NOTE | 2021-04-20 10:53 | PC.NURSE ---
Patient arrived at [facility] stating that she did not feel as though she was in Afib. On monitor, patient SB-SR with LBBB. Dr. Mendez notified via tiger text and photo of strip obtained sent. New order to obtain an EKG. Cardiology called and EKG obtained. Dr. Mendez notified via tiger text and photo of EKG obtained sent. Phone call also placed to his office by this nurse. New order for patient to be discharged, no cardioversion needed at this time. Anesthesia aware.
== END ==
LOC: HO.SSS 09:35
PROVIDERS: PCP Internal Medicine; Visit Provider Internal Medicine Cardiovascular Disease
DX: I48.19 Other persistent atrial fibrillation (principal); Z53.8 Procedure and treatment not carried out for other reasons; I10 Essential (primary) hypertension; I44.7 Left bundle-branch block, unspecified; E11.9 Type 2 diabetes mellitus without complications; Z79.01 Long term (current) use of anticoagulants; Z79.899 Other long term (current) drug therapy; Z87.891 Personal history of nicotine dependence
CPT/HCPCS: 93005

== ENCOUNTER → 2021-05-07 12:59 | Outpatient (REF) | payer BC, SELFPAY ==
--- NOTE | 2021-05-07 13:03 | CA_ITS ---
Transthoracic Echocardiogram Patient (Last, First, Middle): Samra Kwok Ann Gender: Female Date of : 1955 Age: 65 Procedure Date: 05/07/2021 Procedure Type: Transthoracic Echocardiogram Location: OP Height: 160.02 cm Weight: 105.24 kg BSA: 2.06 m2 Heart Rate: bpm BP: 130 / 64 mmHg Promotion Manager: DIEGO Referring MD: Kevin Mendez MD Symptoms: I48.19 - Other persistent atrial fibrillation Study Quality: Fair ECG Rhythm: Sinus Conclusions: - The left ventricular systolic function is normal. The calculated ejection fraction is 72% by biplane method. - No obvious valvular pathology seen on this study. Findings Left Ventricle Normal left ventricular cavity size. There is normal left ventricular wall thickness. The left ventricular systolic function is normal. The calculated ejection fraction is 72% by biplane method. There is no evidence of regional wall motion abnormalities. E/E prime ratio is >15, consistent with elevated filling pressures. Evidence suggests grade I (mild) diastolic dysfunction. Right Ventricle Normal right ventricular cavity size and systolic function. Atria Both atria are normal in size. Aortic Valve The aortic valve was not well visualized. There is no aortic valve stenosis. There is no aortic valve regurgitation. Possibly mild calcification. Mitral Valve The mitral valve appears normal. There is trace mitral valve regurgitation. There is no mitral valve stenosis. Pulmonic Valve The pulmonic valve was not well visualized. Tricuspid Valve There is mild tricuspid valve regurgitation. The pulmonary artery systolic pressure is normal. Great Vessels The aortic annulus, sinuses of valsalva, and asc aorta are normal in size. Venous The inferior vena cava is normal in size and does not collapse with inspiration. Pericardium/Pleural There is no evidence of pericardial effusion. Prior Study Comparison No significant change compared to prior study dated: 08/21/2019. Recommendations, Care & Conclusions No obvious valvular pathology seen on this study. Measurements 2D Linear Measurements IVSd: 1.06 0.6-0.9/0.6-1.0 cm LVIDd: 3.92 3.9-5.3/4.2-5.9 cm LVIDd Index: 1.90 2.4-3.2/2.2-3.1 cm/m2 LVIDs: 2.71 2.0-3.6 cm LVPWd: 0.98 0.7-1.1 cm LA Diam: 3.60 2.7-3.8/3.0-4.0 cm LAIDs Index: 1.75 1.5-2.3 cm/m2 LV Mass: 157.97 67-162/88-224 g LV Mass Index: 76.69 43-95/49-115 g/m2 LVOT Diam: 2.00 3.0+(-)1.3 cm 2D Systolic Function EF 4C: 70.70 >55% EF 2C: 71.80 >55% EF BiP: 72.00 >55% Mitral Valve MV Pk E: 1.09 MV PK A: 0.91 MV Decel Time: 168.00 E/A: 1.20 E'Lateral: 5.44 E'Medial: 6.96 E/E' Med: 15.70 E/E' Lat: 20.00 PHT: 49.00 MVA PHT: 4.49 Decel [place]: 6.52 Aortic Valve AoV Pk Familia: 1.56 AoV Pk Grad: 10.00 LVOT LVOT Pk Familia: 1.03 LVOT Mn Familia: 0.76 LVOT VTI: 0.22 LVOT Pk Grad: 4.00 LVOT Mn Grad: 3.00 LVOT Diam: 2.00 LVOT Area: 3.14 Diastolic Function MV Pk E: 1.09 MV Pk A: 0.91 E/A: 1.20 E'Medial: 6.96 E/E' Med: 15.70 E' Laterial: 5.44 E/E' Lat: 20.00 Tricuspid Valve TR Pk Familia: 2.58 TR Pk Grad: 27.00 RA Press: 3.00 RVSP: 30.00 Great Vessels Aorta Ao Asc: 2.20 2.1-3.4 cm Updated in Other Vendor System with Status of Final Dennis Fernández MD electronically signed on 05/08/2021 12:15:18 PM with status of Final
== END ==
LOC: HO.CARD 12:59
PROVIDERS: Visit Provider Internal Medicine Cardiovascular Disease
DX: I48.19 Other persistent atrial fibrillation (principal)
CPT/HCPCS: 93306

== ENCOUNTER → 2021-05-25 14:18 | Outpatient (BNVA) | payer BC, SELFPAY | PROVIDERS: PCP Internal Medicine; Referring Provider Internal Medicine; Visit Provider Internal Medicine Cardiovascular Disease | DX: I48.0 Paroxysmal atrial fibrillation (principal); I10 Essential (primary) hypertension | CPT/HCPCS: 93005 ==

== ENCOUNTER 2021-05-26 22:59 | Emergency (ER) | payer BC, SELFPAY ==
--- NOTE | 2021-05-26 | ECG_ITS ---
Test Reason : CHEST PAIN Blood Pressure : / mmHG Vent. Rate : 083 BPM Atrial Rate : 083 BPM P-R Int : 188 ms QRS Dur : 128 ms QT Int : 420 ms P-R-T Axes : 084 -02 114 degrees QTc Int : 493 ms Normal sinus rhythm Left bundle branch block Abnormal ECG When compared with ECG of 20-APR-2021 10:08, Inverted T waves have replaced nonspecific T wave abnormality in Lateral leads Referred By: Generic ED Physician Electronically Signed By:VAIBHAV CHRIS
--- NOTE | ~2021-05-26 | XR_ITS ---
EXAMINATION: XR CHEST CLINICAL INFORMATION: Chest pain COMPARISON: 04/02/2021 TECHNIQUE: 2 views of the chest were obtained. FINDINGS: No significant abnormality is noted involving the heart, lungs, mediastinum, bony thorax or soft tissues. XR/XR chest 2V IMPRESSION: Unremarkable examination.
[2021-05-26 23:36] VITALS: BP 149/76; PULSE 88; RESP 16; TEMP 36.1; O2SAT 95; BMI 41.7
--- NOTE | 2021-05-27 00:30 | PC.NURSE ---
LABS DRAWN TO LAB.
[2021-05-27 00:52] LABS: MANUAL DIFF FLAG NO
[2021-05-27 00:54] LABS: Basophils Percent Auto 0.6 % (0-2); Eosinophils Absolute Auto 0.3 X10*3/uL (0.0-0.4); Hematocrit 33.2 % (37-47); Hemoglobin 11.3 g/dl (12.0-16.0); Imm Gran Abs Auto 0.06 X10*3/uL (0.00-0.03); Imm Gran Pct Auto 1.2 % (0.0-0.4); Lymphocytes Absolute Auto 1.8 X10*3/uL (1.2-4.9); Lymphocytes Percent Auto 35.5 % (20-40); Mean Corpuscular Hemoglobin 30.4 pg (27.0-33.0); Mean Corpuscular Volume 89.2 fL (80-98); Mean Platelet Volume 8.9 fL (9.4-12.3); Monocytes Absolute Auto 0.6 X10*3/uL (0.1-1.2); Monocytes Percent Auto 11.3 % (2-11); Neutrophils Absolute Auto 2.4 X10*3/uL (2.0-8.3); Neutrophils Percent Auto 46.4 % (45-73); Platelet Count 183 X10*3/uL (160-400); Red Blood Count 3.72 X10*6/uL (4.20-5.50); Red Cell Distribution Width 13.1 % (11.0-16.0); White Blood Count 5.2 X10*3/uL (4.8-10.8)
[2021-05-27 00:59] LABS: INTERNATIONAL NORM RATIO 1.6 (0.9-1.1); Prothrombin Time 18.7 SEC (9.9-13.0)
--- NOTE | 2021-05-27 01:07 | ED.CHESTPAIN ---
HPI - Chest Pain General Chief Complaint: Chest Pain Stated Complaint: cp Time Seen by Provider: 05/26/21 23:08 Source: patient Mode of arrival: ambulatory History of Present Illness HPI narrative: 65-year-old female presents with complaints sharp, stabbing pain to the left anterior chest without radiation into the arm/back/neck that lasted approximately 30 seconds and was not associated with diaphoresis/nausea/shortness of breath or association with deep inspiration or movement. Patient states that she did feel transiently dizzy but denies any speech/visual/auditory changes and denies any unilateral numbness/tingling/weakness. Related Data Home Medications Medication Instructions Recorded Confirmed docusate sodium 100 mg capsule 200 mg PO BEDTIME 05/25/21 05/25/21 Previous Rx's Medication Instructions Recorded metoprolol succinate 50 mg 50 mg PO DAILY 90 Days #90 tab 08/15/20 tablet,extended release 24 hr rivaroxaban 20 mg tablet (Xarelto) 20 mg PO DAILY #90 tab 08/18/20 divalproex 500 mg tablet,delayed 500 mg PO BID 30 Days #60 tab 01/29/21 release lorazepam 1 mg tablet 1 mg PO BEDTIME 30 Days #30 tab 01/29/21 risperidone 1 mg tablet 1 mg PO DAILY 30 Days #30 tab 01/29/21 risperidone 2 mg tablet 2 mg PO BEDTIME 30 Days #30 tab 01/29/21 divalproex 250 mg tablet,delayed 250 mg PO BEDTIME #14 tab 02/16/21 release levothyroxine 112 mcg tablet 112 mcg PO DAILY PRN #90 tab 03/02/21 meclizine 25 mg tablet 25 mg PO DAILY 90 Days #90 tab 03/27/21 furosemide 20 mg tablet (Lasix) 20 mg PO DAILY #30 tab 04/02/21 amiodarone 200 mg tablet 200 mg PO DAILY #30 tab 04/20/21 Allergies Allergy/AdvReac Type Severity Reaction Status Date / Time aspirin [ASA] Allergy Intermediate GI PAIN, Verified 04/20/21 09:54 upset stomach Review of Systems Review of Systems: Pertinent positives and negatives as stated in HPI 10 point review systems is otherwise negative. PMFSH Past Medical History Source: nursing notes reviewed Medical History Arthritis Bipolar 1 disorder Diabetes mellitus History of cardioversion History of wheezing HTN (hypertension) Hypothyroidism LBBB (left bundle branch block) On anticoagulant therapy On beta carlos at home PAF (paroxysmal atrial fibrillation) Paroxysmal atrial fibrillation PTSD (post-traumatic stress disorder) Vertigo Surgical History History of eye surgery Hx of arthroscopy of right knee Hx of section Hx of cholecystectomy Hx of colonoscopy Family History Family History Father No problems noted. Mother No problems noted. Social History Social History Household Members: Family Household Members Other:: daughter + Housing: House Do you presently have visiting nurse or other home services: No Alcohol intake: former Patient Tobacco Use Status: Former Tobacco user Quit Date: 1989 Second Hand Smoke Exposure: No Advance Directives: No Advance Directives Information Provided: No Patient : No service: No Sexual orientation: Straight/Heterosexual Physical Exam Vital Signs: Vital Signs: Last Vital Signs Temp 98 F 05/27/21 02:56 Pulse 63 05/27/21 02:56 Resp 16 05/27/21 02:56 BP 120/64 05/27/21 02:56 Pulse Ox 94 05/27/21 02:56 Body Mass Index 41.7 VITAL SIGNS: Reviewed. GENERAL: Well developed, well nourished, in no acute distress. HEAD: Normocephalic/atraumatic EYES: PERRLA, EOMI EARS: Ext canals without abnormality OROPHARYNX: no oral lesions noted, posterior pharynx clear LUNGS: Normal breath sounds. No adventitious sounds or accessory muscle use. SpO2<95> CARDIOVASCULAR: Regular rate and rhythm without noted murmurs, no JVD or lower extremity edema. ABDOMEN: Obese, Soft, non-tender, non-distended with bowel sounds. SKIN: Inspection of the skin reveals no rashes NEUROLOGIC: Alert and oriented x 4. Strength and sensation to light touch were grossly intact x 4, no facial asymmetry go to dinner drift, cranial nerves 2-12 grossly intact. Course Course Course Narrative: 65-year-old female with history and clinical presentation consistent with transient costochondritis type pain and less likely cardiopulmonary in etiology. Of note, there was an expanse down time during this chart, so there are parts that are paper copy. Review of all investigations without acute findings and serial troponins were flat although detectable they were not elevated. On review of EKG there were no acute findings to suggest changes and rhythm and patient experienced no further chest pain during her stay. She was discharged home in stable condition with instructions to follow-up with her primary care provider. MDM - Chest Pain Lab Data Result diagrams: 05/27/21 00:44 05/27/21 00:44 Labs: Lab Results 05/27/21 05/27/21 05/27/21 Range/Units 00:44 00:44 00:44 WBC 5.2 (4.8-10.8) X10*3/uL RBC 3.72 L (4.20-5.50) X10*6/uL Hgb 11.3 L (12.0-16.0) g/dl Hct 33.2 L (37-47) % MCV 89.2 (80-98) fL MCH 30.4 (27.0-33.0) pg MCHC 34.0 (31.0-35.0) g/dl RDW 13.1 (11.0-16.0) % Plt Count 183 D (160-400) X10*3/uL MPV 8.9 L (9.4-12.3) fL Immature Gran % (Auto) 1.2 H (0.0-0.4) % Neut % (Auto) 46.4 (45-73) % Lymph % (Auto) 35.5 (20-40) % Woodruff % (Auto) 11.3 H (2-11) % Eos % (Auto) 5.0 H (0-4) % Baso % (Auto) 0.6 (0-2) % Lymph # (Auto) 1.8 (1.2-4.9) X10*3/uL Woodruff # (Auto) 0.6 (0.1-1.2) X10*3/uL Eos # (Auto) 0.3 (0.0-0.4) X10*3/uL Baso # (Auto) 0.0 (0.0-0.2) X10*3/uL Abs Immat Gran (auto) 0.06 H (0.00-0.03) X10*3/uL Absolute Neuts (auto) 2.4 (2.0-8.3) X10*3/uL Absolute Nucleated RBC 0.000 (0.0-0.012) X10*3/uL Nucleated RBC % (auto) 0.0 (0.0-0.2) /100WBC PT 18.7 H (9.9-13.0) SEC INR 1.6 H (0.9-1.1) Sodium 138 (135-145) mmol/L Potassium 3.8 D (3.3-5.1) mmol/L Chloride 101 (96-108) mmol/L Carbon Dioxide 24 (22-29) mmol/L Anion Gap 17 (12-20) BUN 15 (9-16) mg/dL Creatinine 0.76 (0.5-1.4) mg/dL Estim Creat Clear Calc 88.7 Estimated GFR > 60 Random Glucose 125 H (60-115) mg/dL Calcium 8.7 (8.4-10.2) mg/dL Troponin I High Sens (<3.5-17.0) ng/L COVID-19 (PETR) (Negative) COVID-19 Clin Com 05/27/21 05/27/21 Range/Units 00:44 00:44 WBC (4.8-10.8) X10*3/uL RBC (4.20-5.50) X10*6/uL Hgb (12.0-16.0) g/dl Hct (37-47) % MCV (80-98) fL MCH (27.0-33.0) pg MCHC (31.0-35.0) g/dl RDW (11.0-16.0) % Plt Count (160-400) X10*3/uL MPV (9.4-12.3) fL Immature Gran % (Auto) (0.0-0.4) % Neut % (Auto) (45-73) % Lymph % (Auto) (20-40) % Woodruff % (Auto) (2-11) % Eos % (Auto) (0-4) % Baso % (Auto) (0-2) % Lymph # (Auto) (1.2-4.9) X10*3/uL Woodruff # (Auto) (0.1-1.2) X10*3/uL Eos # (Auto) (0.0-0.4) X10*3/uL Baso # (Auto) (0.0-0.2) X10*3/uL Abs Immat Gran (auto) (0.00-0.03) X10*3/uL Absolute Neuts (auto) (2.0-8.3) X10*3/uL Absolute Nucleated RBC (0.0-0.012) X10*3/uL Nucleated RBC % (auto) (0.0-0.2) /100WBC PT (9.9-13.0) SEC INR (0.9-1.1) Sodium (135-145) mmol/L Potassium (3.3-5.1) mmol/L Chloride (96-108) mmol/L Carbon Dioxide (22-29) mmol/L Anion Gap (12-20) BUN (9-16) mg/dL Creatinine (0.5-1.4) mg/dL Estim Creat Clear Calc Estimated GFR Random Glucose (60-115) mg/dL Calcium (8.4-10.2) mg/dL Troponin I High Sens 6.0 (<3.5-17.0) ng/L COVID-19 (PETR) Negative (Negative) COVID-19 Clin Com See Note ECG Data ECG #1: Attestation: I personally reviewed and interpreted this ECG as follows: Prior ECG tracings: available for review (04/20/2021 no acute changes on comparison) Interpretation: Normal sinus rhythm, LBBB, no STEMI, NE/QTC are within normal limits. Discharge Plan Discharge Clinical Impression: Atypical chest pain, Costochondritis Patient Disposition: Home, Self-Care Additional Instructions: This has been completed in paper form. Prescriptions: No Action metoprolol succinate 50 mg tablet extended release 24 hr 50 mg PO DAILY 90 Days Qty: 90 RF: 3 Xarelto 20 mg tablet 20 mg PO DAILY Qty: 90 RF: 3 levothyroxine 112 mcg tablet 112 mcg PO DAILY PRN (Reason: for disorder of thyroid gland) Qty: 90 RF: 0 furosemide [Lasix] 20 mg tablet 20 mg PO DAILY Qty: 30 RF: 2 amiodarone 200 mg tablet 200 mg PO DAILY Qty: 30 RF: 3 divalproex 500 mg Tablet,Delayed Release (Dr/Ec) 500 mg PO BID 30 Days Qty: 60 RF: 0 lorazepam 1 mg Tablet 1 mg PO BEDTIME 30 Days Qty: 30 RF: 0 risperidone 1 mg Tablet 1 mg PO DAILY 30 Days Qty: 30 RF: 0 risperidone 2 mg Tablet 2 mg PO BEDTIME 30 Days Qty: 30 RF: 0 divalproex 250 mg tablet,delayed release (DR/EC) 250 mg PO BEDTIME Qty: 14 RF: 0 docusate sodium 100 mg capsule 200 mg PO BEDTIME RF: 0 meclizine 25 mg tablet 25 mg PO DAILY 90 Days Qty: 90 RF: 3
[2021-05-27 01:19] LABS: COVID-19 Test Negative (Negative); IDNOW Serial# 9DD0AD1C
[2021-05-27 01:27] LABS: Anion Gap 17 (12-20); Blood Urea Nitrogen 15 mg/dL (9-16); Calcium 8.7 mg/dL (8.4-10.2); Carbon Dioxide 24 mmol/L (22-29); Chloride 101 mmol/L (96-108); Creatinine Clr Calc Pharmacy 88.7; Estimated Glomerular Filt Rate > 60; Glucose Random 125 mg/dL (60-115); Potassium 3.8 mmol/L (3.3-5.1); Sodium 138 mmol/L (135-145)
--- NOTE | 2021-05-27 02:51 | PC.NURSE ---
PT IS GETTING REPEAT TROP AT 0345.
[2021-05-27 02:56] VITALS: BP 120/64; PULSE 63; RESP 16; TEMP 36.6; O2SAT 94
[2021-05-27 07:24] LABS: Troponin-I High Sensitivity 9.8 ng/L (<3.5-17.0)
== END 2021-05-27 06:20 | disposition home or self-care (01) ==
PROVIDERS: Emergency Provider Student in an Organized Health Care Education/Training Program; PCP Internal Medicine
DX: R07.89 Other chest pain (principal); M94.0 Chondrocostal junction syndrome [Tietze]; E11.9 Type 2 diabetes mellitus without complications; I10 Essential (primary) hypertension; I48.0 Paroxysmal atrial fibrillation; Z79.02 Long term (current) use of antithrombotics/antiplatelets; Z79.01 Long term (current) use of anticoagulants; Z20.822 Contact with and (suspected) exposure to COVID-19
CPT/HCPCS: 36415; 71046; 80048; 84484; 85025; 85610; 87635; 93005; 99284

== ENCOUNTER 2021-06-11 23:56 | Emergency (ER) | payer BC, SELFPAY ==
[2021-06-12 01:03] VITALS: BP 156/75; PULSE 77; RESP 18; TEMP 37; O2SAT 99; BMI 42.5
== END 2021-06-12 02:27 | disposition left against medical advice (07) ==
PROVIDERS: Emergency Provider Emergency Medicine
DX: H00.039 Abscess of eyelid unspecified eye, unspecified eyelid (principal)
CPT/HCPCS: 99281; 99282

== ENCOUNTER 2021-06-13 07:04 | Emergency (ER) | payer BC, SELFPAY ==
--- NOTE | ~2021-06-13 | CT_ITS ---
EXAMINATION: CT ORBIT WITH CONTRAST CLINICAL INFORMATION: Right eye cellulitis. COMPARISON: None TECHNIQUE: 3 mm thin axial and reformatted 2 mm thin sagittal and coronal images of orbits were obtained without contrast. This CT examination was performed using dose optimization techniques as appropriate, variously including the following: *Automated exposure control *Adjustment of mA and/or kV according to patient size (this includes techniques or standardized protocols for targeted exams where dose is matched to indication/reason for exam; i.e. extremities or head) *Use of iterative reconstruction technique DLP: 159 mGy-cm FINDINGS: There is a large cystic lesion along the medial right orbit suggestive of dilated lacrimal sac with heterogeneous density within measuring 39 Hounsfield units. The sac measures 1.9 x 1.4 x 1.4 cm surrounded by partially enhancing thick wall suggestive of dacryocystitis. There is a similar but lesser distended left orbital ecchymosis sac Angela cystitis. There is mild mass effect on the medial rectus right orbit. Minimal mass effect left medial rectus left orbit is noted. There is surrounding preseptal soft tissue swelling right orbit. No such soft tissue swelling seen in the preseptal left orbit. Bilateral optic globes and rest of the orbit is normal. There is mild right hyperostosis. Mild mucoperiosteal thickening right maxillary sinus. Left maxillary, sphenoid, ethmoid and hypoplastic frontal sinuses are unremarkable. Visualized intraparenchymal brain parenchyma is normal. Visualized anterior circulation vascular system is unremarkable. The maxillofacial soft tissues, are unremarkable. There is mild deviation of nasal septum to the left with asymmetric enlarged enlarged left middle and inferior turbinate likely physiological changes. CT/CT orbit BI w con IMPRESSION: Bilateral ORBIT post septal Love cystitis right greater than the left with mild mass effect on the medial rectus of both orbits greater on the right side. Mild mucoperiosteal thickening right maxillary sinus.
[2021-06-13 07:29] VITALS: BP 170/62; PULSE 69; RESP 20; TEMP 36.6; O2SAT 96; BMI 42.5
--- NOTE | 2021-06-13 08:01 | ED.EYEPROB ---
HPI - Eye Problem General Chief complaint: Eye Problems Stated complaint: eye swelling Time Seen by Provider: 06/13/21 07:50 Source: patient and family (Spouse) Mode of arrival: ambulatory Limitations: no limitations History of Present Illness HPI Narrative: 65-year-old female came in for evaluation of right eye infection. Patient started with right eye cellulitis patient was started on Augmentin, tobramycin eye drops, patient was seen by 2 eye doctors for concern of septum orbital cellulitis. Patient just started taking Augmentin yesterday and report improvement for symptoms. Related Data Home Medications Medication Instructions Recorded Confirmed docusate sodium 100 mg capsule 200 mg PO BEDTIME 05/25/21 06/03/21 amiodarone 400 mg tablet 400 mg PO BID 06/03/21 06/03/21 Previous Rx's Medication Instructions Recorded metoprolol succinate 50 mg 50 mg PO DAILY 90 Days #90 tab 08/15/20 tablet,extended release 24 hr rivaroxaban 20 mg tablet (Xarelto) 20 mg PO DAILY #90 tab 08/18/20 divalproex 500 mg tablet,delayed 500 mg PO BID 30 Days #60 tab 01/29/21 release lorazepam 1 mg tablet 1 mg PO BEDTIME 30 Days #30 tab 01/29/21 risperidone 1 mg tablet 1 mg PO DAILY 30 Days #30 tab 01/29/21 risperidone 2 mg tablet 2 mg PO BEDTIME 30 Days #30 tab 01/29/21 divalproex 250 mg tablet,delayed 250 mg PO BEDTIME #14 tab 02/16/21 release meclizine 25 mg tablet 25 mg PO DAILY 90 Days #90 tab 03/27/21 furosemide 20 mg tablet (Lasix) 20 mg PO DAILY #30 tab 04/02/21 levothyroxine 112 mcg tablet 112 mcg PO DAILY #90 tab 06/02/21 Allergies Allergy/AdvReac Type Severity Reaction Status Date / Time aspirin [ASA] Allergy Intermediate GI PAIN, Verified 06/03/21 09:32 upset stomach Review of Systems Review of Systems: All other systems are reviewed and are negative Constitutional: Reports as per HPI and Reports no additional constitutional complaints Eyes: Reports as per HPI and Reports no additional eye complaints Reports system reviewed and no additional complaints, except as documented Cardiovascular: Reports as per HPI and Reports no additional cardiovascular complaints Respiratory: Reports as per HPI and Reports no additional respiratory complaints Gastrointestinal: Reports as per HPI and Reports no additional gastrointestinal complaints Genitourinary: Reports no additional female genitourinary complaints Musculoskeletal: Reports no additional musculoskeletal complaints Skin/Breast: Reports system reviewed and no additional complaints, except as docu Psychiatric: Reports no additional psychiatric complaints Endocrine: Reports no additional endocrine complaints Hematologic/Lymphatic: Reports no additional hematologic/lymphatic complaints Allergic/Immunologic: Reports no additional allergic/immunologic complaints Reports system reviewed and no additional complaints, except as documented and Reports Abnormal speech present [facility] Past Medical History Medical History Arthritis Bipolar 1 disorder Diabetes mellitus History of cardioversion History of wheezing HTN (hypertension) Hypothyroidism LBBB (left bundle branch block) On anticoagulant therapy On beta carlos at home PAF (paroxysmal atrial fibrillation) Paroxysmal atrial fibrillation PTSD (post-traumatic stress disorder) Vertigo Surgical History History of eye surgery Hx of arthroscopy of right knee Hx of section Hx of cholecystectomy Hx of colonoscopy Family History Family History Father No problems noted. Mother No problems noted. Social History Social History Household Members: Family Household Members Other:: daughter + Housing: House Do you presently have visiting nurse or other home services: No Alcohol intake: former Patient Tobacco Use Status: Former Tobacco user Quit Date: 1989 Second Hand Smoke Exposure: No Use of substances other than those prescribed or required for medical reasons: No Advance Directives: No Advance Directives Information Provided: No service: No Current occupational status: employed Sexual orientation: Straight/Heterosexual Physical Exam Vital Signs: Vital Signs: Last Vital Signs Temp 97.9 F 06/13/21 07:29 Pulse 66 06/13/21 09:29 Resp 16 06/13/21 09:29 BP 153/65 H 06/13/21 09:29 Pulse Ox 95 06/13/21 09:29 Body Mass Index 42.5 Vital signs have been reviewed as appeared to be correct. Blood pressure elevated. Heart rate normal. Respiration rate normal. Temperature normal. Oxygen saturation normal. Appearance: Alert. Oriented X3. No acute distress. Head: Normal external exam. Normocephalic. Atraumatic. No Clayton signs noted. No raccoon eyes noted Eyes: PERRLA. EOMI. Right periorbital redness, hotness, no diplopia. and sclera normal. Eyelids normal. ENT: TM's Normal. Pharynx normal. Uvula midline. Moist mucous membranes. No trismus noted. No drooling noted. No muffled voice noted. Neck: Normal inspection. Neck supple. FROM. No adenopathy. Thyroid Normal. No meningeal signs. No neck mass noted. CVS: Normal heart rate and rhythm. Heart sound normal. No murmurs noted. Pulses normal throughout. Respiratory: No respiratory distress. Painless inspiration. Breath sounds normal. No wheezes/rales/rhonchi noted. Chest nontender. No accessory muscle usage noted or decreased air movement noted. Abdomen: Soft and nontender. Bowel sounds normal in all 4 quadrants. No distention noted. No organomegaly noted. No visible injury noted. Back: No CVA tenderness. Full range of motion noted. Skin: Skin warm and dry. Normal skin color. Normal skin turgor. No rashes/lesions/lacerations noted. Extremities: No lower extremity edema. Extremities exhibit normal range of motion. Extremities nontender. Neuro: Oriented X 3. Cranial nerve exam: II-XII are grossly intact No motor deficit. No sensory deficit. Reflexes normal. Course Course Course Narrative: Assessment and plan. 65-year-old female came in with right orbital preseptal cellulitis, CT of the orbit showed dacryocystitis without septal cellulitis. Continue with Augmentin and tobramycin eye drops, patient ready have an appointment with her eye doctor in 2 days to discuss the CT finding. Patient was instructed to return if any worsening of her symptoms or increased pain in the right eye. But otherwise to continue with antibiotic. MDM - Eye Problem Lab Data Attestation: I reviewed the patient's lab results. Result diagrams: 06/13/21 08:21 06/13/21 08:21 Labs: Lab Results 06/13/21 06/13/21 06/13/21 Range/Units 08:21 08:21 08:21 WBC 6.6 (4.8-10.8) X10*3/uL RBC 3.82 L (4.20-5.50) X10*6/uL Hgb 11.4 L (12.0-16.0) g/dl Hct 34.8 L (37-47) % MCV 91.1 (80-98) fL MCH 29.8 (27.0-33.0) pg MCHC 32.8 (31.0-35.0) g/dl RDW 13.2 (11.0-16.0) % Plt Count 197 (160-400) X10*3/uL MPV 8.9 L (9.4-12.3) fL Immature Gran % (Auto) 0.6 H (0.0-0.4) % Neut % (Auto) 63.0 (45-73) % Lymph % (Auto) 22.4 (20-40) % Elliott % (Auto) 10.5 (2-11) % Eos % (Auto) 3.0 (0-4) % Baso % (Auto) 0.5 (0-2) % Lymph # (Auto) 1.5 (1.2-4.9) X10*3/uL Elliott # (Auto) 0.7 (0.1-1.2) X10*3/uL Eos # (Auto) 0.2 (0.0-0.4) X10*3/uL Baso # (Auto) 0.0 (0.0-0.2) X10*3/uL Abs Immat Gran (auto) 0.04 H (0.00-0.03) X10*3/uL Absolute Neuts (auto) 4.1 (2.0-8.3) X10*3/uL Absolute Nucleated RBC 0.000 (0.0-0.012) X10*3/uL Nucleated RBC % (auto) 0.0 (0.0-0.2) /100WBC Sodium 140 (135-145) mmol/L Potassium 5.5 H D (3.3-5.1) mmol/L Chloride 105 (96-108) mmol/L Carbon Dioxide 22 (22-29) mmol/L Anion Gap 19 (12-20) BUN 11 (9-16) mg/dL Creatinine 0.73 (0.5-1.4) mg/dL Estim Creat Clear Calc 93.3 Estimated GFR > 60 Random Glucose 151 H (60-115) mg/dL Lactic Acid 3.0 H* (0.5-2.0) mmol/L Calcium 8.4 (8.4-10.2) mg/dL Imaging Data Orbital CT: Radiologist's impression: Bilateral ORBIT post septal Love cystitis right greater than the left with mild mass effect on the medial rectus of both orbits greater on the right side. ? Mild mucoperiosteal thickening right maxillary sinus.? Discharge Plan Discharge Clinical Impression: Dacrocystitis Qualifiers: Laterality: bilateral Qualified Code(s): H04.303 - Unspecified dacryocystitis of bilateral lacrimal passages Patient Disposition: Home, Self-Care Instructions: Blocked Tear Duct (ED) Additional Instructions: Follow-up with your eye doctor as scheduled. Prescriptions: No Action metoprolol succinate 50 mg tablet extended release 24 hr 50 mg PO DAILY 90 Days Qty: 90 RF: 3 Xarelto 20 mg tablet 20 mg PO DAILY Qty: 90 RF: 3 furosemide [Lasix] 20 mg tablet 20 mg PO DAILY Qty: 30 RF: 2 levothyroxine 112 mcg tablet 112 mcg PO DAILY Qty: 90 RF: 0 divalproex 500 mg Tablet,Delayed Release (Dr/Ec) 500 mg PO BID 30 Days Qty: 60 RF: 0 lorazepam 1 mg Tablet 1 mg PO BEDTIME 30 Days Qty: 30 RF: 0 risperidone 1 mg Tablet 1 mg PO DAILY 30 Days Qty: 30 RF: 0 risperidone 2 mg Tablet 2 mg PO BEDTIME 30 Days Qty: 30 RF: 0 divalproex 250 mg tablet,delayed release (DR/EC) 250 mg PO BEDTIME Qty: 14 RF: 0 docusate sodium 100 mg capsule 200 mg PO BEDTIME RF: 0 meclizine 25 mg tablet 25 mg PO DAILY 90 Days Qty: 90 RF: 3 amiodarone 400 mg tablet 400 mg PO BID RF: 0 Referrals: Adithya Gutierrez MD [Primary Care Provider] - 2 days
[2021-06-13 08:27] LABS: MANUAL DIFF FLAG NO
[2021-06-13 08:29] LABS: Basophils Percent Auto 0.5 % (0-2); Eosinophils Absolute Auto 0.2 X10*3/uL (0.0-0.4); Hematocrit 34.8 % (37-47); Hemoglobin 11.4 g/dl (12.0-16.0); Imm Gran Abs Auto 0.04 X10*3/uL (0.00-0.03); Imm Gran Pct Auto 0.6 % (0.0-0.4); Lymphocytes Absolute Auto 1.5 X10*3/uL (1.2-4.9); Lymphocytes Percent Auto 22.4 % (20-40); Mean Corpuscular HGB Conc 32.8 g/dl (31.0-35.0); Mean Corpuscular Hemoglobin 29.8 pg (27.0-33.0); Mean Corpuscular Volume 91.1 fL (80-98); Mean Platelet Volume 8.9 fL (9.4-12.3); Monocytes Absolute Auto 0.7 X10*3/uL (0.1-1.2); Monocytes Percent Auto 10.5 % (2-11); Neutrophils Absolute Auto 4.1 X10*3/uL (2.0-8.3); Platelet Count 197 X10*3/uL (160-400); Red Blood Count 3.82 X10*6/uL (4.20-5.50); Red Cell Distribution Width 13.2 % (11.0-16.0); White Blood Count 6.6 X10*3/uL (4.8-10.8)
[2021-06-13 08:58] LABS: Anion Gap 19 (12-20); Blood Urea Nitrogen 11 mg/dL (9-16); Calcium 8.4 mg/dL (8.4-10.2); Carbon Dioxide 22 mmol/L (22-29); Chloride 105 mmol/L (96-108); Creatinine Clr Calc Pharmacy 93.3; Estimated Glomerular Filt Rate > 60; Glucose Random 151 mg/dL (60-115); Potassium 5.5 mmol/L (3.3-5.1); Sodium 140 mmol/L (135-145)
[2021-06-13 09:29] VITALS: BP 153/65; PULSE 66; RESP 16; O2SAT 95
[2021-06-13] MEDS: Piperacillin Sodium/Tazobactam 4.5 GM in 0.9 % Sodium Chloride 100 ML IV (09:29)
[2021-06-13] MEDS: iohexoL 350 MG/ML 100 ML INFUS..BTL IV (09:34)
[2021-06-13] MEDS: 0.9 % Sodium Chloride 1,000 ML 999 ML IVCONT (09:48)
[2021-06-13 10:26] LABS: Reflex Lactate? Lactic Acid Added
== END 2021-06-13 11:25 | disposition home or self-care (01) ==
PROVIDERS: Emergency Provider Emergency Medicine; PCP Internal Medicine
DX: H04.303 Unspecified dacryocystitis of bilateral lacrimal passages (principal); H05.011 Cellulitis of right orbit; E11.9 Type 2 diabetes mellitus without complications; I10 Essential (primary) hypertension; I48.0 Paroxysmal atrial fibrillation; Z79.01 Long term (current) use of anticoagulants; Z79.02 Long term (current) use of antithrombotics/antiplatelets
CPT/HCPCS: 36415; 70481; 80048; 83605; 85025; 87040; 96361; 96365; 99284; J2543; Q9967

== ENCOUNTER 2021-07-10 08:28 | Outpatient (REF) | payer BC, SELFPAY ==
[2021-07-10 09:12] LABS: MANUAL DIFF FLAG NO
[2021-07-10 09:16] LABS: Basophils Percent Auto 0.6 % (0-2); Eosinophils Absolute Auto 0.2 X10*3/uL (0.0-0.4); Eosinophils Percent Auto 3.4 % (0-4); Hematocrit 33.7 % (37-47); Imm Gran Abs Auto 0.02 X10*3/uL (0.00-0.03); Imm Gran Pct Auto 0.4 % (0.0-0.4); Lymphocytes Absolute Auto 1.9 X10*3/uL (1.2-4.9); Lymphocytes Percent Auto 38.5 % (20-40); Mean Corpuscular HGB Conc 32.6 g/dl (31.0-35.0); Mean Corpuscular Hemoglobin 29.9 pg (27.0-33.0); Mean Corpuscular Volume 91.6 fL (80-98); Mean Platelet Volume 9.3 fL (9.4-12.3); Monocytes Absolute Auto 0.5 X10*3/uL (0.1-1.2); Monocytes Percent Auto 9.3 % (2-11); Neutrophils Absolute Auto 2.4 X10*3/uL (2.0-8.3); Neutrophils Percent Auto 47.8 % (45-73); Platelet Count 181 X10*3/uL (160-400); Red Blood Count 3.68 X10*6/uL (4.20-5.50); Red Cell Distribution Width 13.4 % (11.0-16.0); White Blood Count 4.9 X10*3/uL (4.8-10.8)
[2021-07-10 09:26] LABS: Estimated Average Glucose 154 mg/dL
[2021-07-10 09:43] LABS: Anion Gap 17 (12-20); Blood Urea Nitrogen 17 mg/dL (9-16); Calcium 8.6 mg/dL (8.4-10.2); Carbon Dioxide 24 mmol/L (22-29); Chloride 104 mmol/L (96-108); Cholesterol 208 mg/dL; Estimated Glomerular Filt Rate > 60; Glucose Random 227 mg/dL (60-115); HDL Cholesterol 44 mg/dL; LDL Cholesterol Calculated 95 mg/dl; Potassium 4.4 mmol/L (3.3-5.1); Sodium 141 mmol/L (135-145); Triglycerides 346 mg/dL
[2021-07-10 09:54] LABS: Valproate 64.3 mcg/mL (50.0-100.0)
== END 2021-07-10 08:29 | disposition home or self-care (01) ==
LOC: HO.LAB 08:28
PROVIDERS: PCP Internal Medicine; Visit Provider Registered Nurse
DX: Z79.899 Other long term (current) drug therapy (principal)
CPT/HCPCS: 36415; 80048; 80061; 80164; 83036; 85025

== ENCOUNTER 2021-09-02 11:42 | Outpatient (REF) | payer BC, SELFPAY ==
[2021-09-02 14:03] LABS: MANUAL DIFF FLAG NO
[2021-09-02 14:11] LABS: Basophils Percent Auto 0.7 % (0-2); Eosinophils Absolute Auto 0.1 X10*3/uL (0.0-0.4); Eosinophils Percent Auto 1.9 % (0-4); Hematocrit 36.7 % (37.0-47.0); Imm Gran Abs Auto 0.02 X10*3/uL (0.00-0.03); Imm Gran Pct Auto 0.5 % (0.0-0.4); Lymphocytes Absolute Auto 1.5 X10*3/uL (1.2-4.9); Lymphocytes Percent Auto 35.3 % (20-40); Mean Corpuscular HGB Conc 32.7 g/dl (31.0-35.0); Mean Corpuscular Hemoglobin 30.2 pg (27.0-33.0); Mean Corpuscular Volume 92.2 fL (80.0-98.0); Mean Platelet Volume 10.1 fL (9.4-12.3); Monocytes Absolute Auto 0.4 X10*3/uL (0.1-1.2); Monocytes Percent Auto 9.8 % (2-11); Neutrophils Absolute Auto 2.22 x10*3/uL (2.0-8.3); Neutrophils Percent Auto 51.8 % (45-73); Platelet Count 215 X10*3/uL (160-400); Red Blood Count 3.98 X10*6/uL (4.20-5.50); Red Cell Distribution Width 13.3 % (11.0-16.0); White Blood Count 4.3 X10*3/uL (4.8-10.8)
[2021-09-02 14:32] LABS: Alanine Aminotransferase 19 U/L (0-31); Albumin Level 3.6 g/dL (3.5-5.0); Alkaline Phosphatase 55 U/L (39-117); Anion Gap 18 (12-20); Aspartate Amino Transferase 21 U/L (5-31); Bilirubin Total 0.2 mg/dL (0.0-1.0); Blood Urea Nitrogen 12 mg/dL (9-16); Calcium 8.5 mg/dL (8.4-10.2); Carbon Dioxide 25 mmol/L (22-29); Chloride 102 mmol/L (96-108); Estimated Glomerular Filt Rate > 60; Glucose Random 138 mg/dL (60-115); Potassium 4.4 mmol/L (3.3-5.1); Sodium 141 mmol/L (135-145)
== END 2021-09-02 11:43 | disposition home or self-care (01) ==
LOC: HO.HMGCLDS 11:42
PROVIDERS: PCP Internal Medicine; Visit Provider Internal Medicine
DX: Z01.818 Encounter for other preprocedural examination (principal); H04.019 Acute dacryoadenitis, unspecified lacrimal gland
CPT/HCPCS: 36415; 80053; 85025

== ENCOUNTER 2021-09-07 20:31 | Emergency (ER) | payer BC, SELFPAY ==
[2021-09-07 20:36] VITALS: BP 128/71; PULSE 67; RESP 19; TEMP 36.4; O2SAT 95; BMI 44.2
== END 2021-09-07 22:50 | disposition left against medical advice (07) ==
PROVIDERS: Emergency Provider Emergency Medicine; PCP Internal Medicine
DX: M79.601 Pain in right arm (principal)
CPT/HCPCS: 99281; 99282

== ENCOUNTER 2021-09-09 15:00 | Outpatient (REF) | payer BC, SELFPAY ==
--- NOTE | ~2021-09-09 | US_ITS ---
EXAMINATION: US VENOUS WITH DOPPLER UPPER EXTREMITY, RIGHT CLINICAL INFORMATION: Right arm preoperative evaluation. Soft tissue disorder. Evaluate for deep vein thrombosis. COMPARISON: None TECHNIQUE: Ultrasound of the upper extremity is performed using compression sonography and color and pulse Doppler flow with assessment of augmentation of flow. There is also imaging and Doppler assessment of the jugular and subclavian veins. Spectral analysis with color-flow imaging is performed. FINDINGS: The grayscale and pulsed color Doppler images show normal appearance of the right internal jugular, subclavian and axillary veins. Within the upper arm, the cephalic, basilic and brachial veins have normal Doppler flow. No evidence of superficial or deep vein thrombosis. Within the forearm, the agricultural engineering technologist has identified a normal compressible radial vein. The ulnar vein is not detected. No focal fluid collection. US/US venous duplex UE RT IMPRESSION: Negative exam. No evidence of superficial or deep vein thrombosis in the right upper extremity.
== END 2021-09-09 15:01 | disposition home or self-care (01) ==
LOC: HO.US 15:00
PROVIDERS: PCP Internal Medicine; Visit Provider Internal Medicine Cardiovascular Disease
DX: R60.0 Localized edema (principal); M79.89 Other specified soft tissue disorders
CPT/HCPCS: 93971

== ENCOUNTER 2021-12-31 10:35 | Outpatient (REF) | payer BC, SELFPAY ==
[2021-12-31 12:01] LABS: MANUAL DIFF FLAG NO
[2021-12-31 12:32] LABS: Estimated Average Glucose 151 mg/dL; Hemoglobin A1c % 6.9 %
[2021-12-31 12:53] LABS: Valproate 65.2 mcg/mL (50.0-100.0)
[2021-12-31 14:04] LABS: Basophils Percent Auto 0.7 % (0-2); Eosinophils Absolute Auto 0.1 X10*3/uL (0.0-0.4); Eosinophils Percent Auto 1.7 % (0-4); Hematocrit 39.3 % (37.0-47.0); Hemoglobin 12.5 g/dl (12.0-16.0); Imm Gran Abs Auto 0.03 X10*3/uL (0.00-0.03); Imm Gran Pct Auto 0.5 % (0.0-0.4); Lymphocytes Absolute Auto 2.4 X10*3/uL (1.2-4.9); Lymphocytes Percent Auto 41.8 % (20-40); Mean Corpuscular HGB Conc 31.8 g/dl (31.0-35.0); Mean Corpuscular Hemoglobin 30.8 pg (27.0-33.0); Mean Corpuscular Volume 96.8 fL (80.0-98.0); Mean Platelet Volume 9.7 fL (9.4-12.3); Monocytes Absolute Auto 0.4 X10*3/uL (0.1-1.2); Monocytes Percent Auto 7.6 % (2-11); Neutrophils Absolute Auto 2.7 x10*3/uL (2.0-8.3); Neutrophils Percent Auto 47.7 % (45-73); Platelet Count 231 X10*3/uL (160-400); Red Blood Count 4.06 X10*6/uL (4.20-5.50); Red Cell Distribution Width 12.8 % (11.0-16.0); White Blood Count 5.8 X10*3/uL (4.8-10.8)
== END 2021-12-31 10:36 | disposition home or self-care (01) ==
LOC: HO.LAB 10:35
PROVIDERS: Absent Provider Registered Nurse; PCP Internal Medicine; Referring Provider Internal Medicine; Visit Provider Internal Medicine Cardiovascular Disease
DX: I48.0 Paroxysmal atrial fibrillation (principal); I10 Essential (primary) hypertension; Z79.01 Long term (current) use of anticoagulants; Z79.899 Other long term (current) drug therapy
CPT/HCPCS: 36415; 80164; 83036; 85025; 93005

== ENCOUNTER → 2022-03-08 09:54 | Outpatient (REF) | payer BC, OTHER, SELFPAY ==
--- NOTE | ~2022-03-08 | NM_ITS ---
Lexiscan Myocardial perfusion study Indication: Atrial fibrillation, assess for coronary disease and ischemia Technique: The patient was brought in for a Lexiscan perfusion study on 03/08/2022 and was injected 0.4 mg of Lexiscan intravenously. Within a minute of this injection 45 mCi of sestamibi was given intravenously. Images were obtained using the SPECT gamma camera interlaced with the gating device. Images were obtained in supine position. Resting perfusion study was performed on 03/10/2022. Patient was administered 45 mCi of sestamibi intravenously at rest. Images were then obtained in supine position. Total DLP 196mGy-cm. Images were processed with the software and compared side to side in short axis, horizontal long axis and vertical long axis views. Findings: Raw acquisition reviewed. Arms by the patient's side. The stress perfusion study showed diminished tracer uptake in the distal septum, anterior septum, anterior wall, adjacent part of apex. No significant change with CT attenuation correction. The gated study shows low normal LV systolic function with calculated LVEF of 53%. LV cavity is normal in size. The gated study shows hypokinesis in the above areas. Resting study shows diminished tracer uptake in the distal part of septum, adjacent anterior septum, anterior wall as well as the adjoining apex. No significant change with CT attenuation correction. Gating at rest reveals hypokinesis in the above areas, possibly paradoxical septal motion. LVEF 48%.. The findings are consistent with fixed defect in the distal part of the distal septum, anterior septum, anterior wall, adjacent apex. Probably from left bundle branch block. NM/NM cardiolite stress test Impression: 1. Myocardial perfusion imaging study shows no clear evidence of ischemia. Fixed defect in the distal part of septum, adjacent anterior septum, anterior wall and apex that could be from underlying conduction system disease/bundle branch block. 2. Gated LVEF is 53% during stress and 48% during rest. Correlate with echocardiogram. 3. Transient ischemic dilatation not present. EKG component of the test reported separately.
--- NOTE | 2022-03-08 09:57 | CA_ITS ---
Acquisition Time: 2022-03-08 10:13:22 Total Exercise Time: 00:02:00 Test Indications: AFIB, LBBB Medications: SEE CHART Protocol: LEXISCAN Max HR: 127 BPM 81% of Pred: 156 BPM Max BP: 122/074 mmHG Max Work Load: 1.0 METS Pharmacological stress test with Lexiscan injection, while sitting, without anginal symptoms, without arrythmia, with normotensive response to injection, with nondiagnostic EKG for ischemia. In recovery she reported nausea that was treated with Aminophylline 75mg IVP to reverse Lexiscan with resolution of symptom. Nuclear images pending. Test reviewed with Dr Mendez. Referred By: Kevin Mendez Overread By: KEITH BURGESS
== END ==
LOC: HO.CARD 09:54
PROVIDERS: Visit Provider Internal Medicine Cardiovascular Disease
DX: I48.19 Other persistent atrial fibrillation (principal); I44.7 Left bundle-branch block, unspecified; R06.02 Shortness of breath
CPT/HCPCS: 78452; 93017; A9500; J0280; J2785

== ENCOUNTER 2022-03-10 11:07 | Outpatient (REF) | payer BC, OTHER, SELFPAY ==
[2022-03-10 13:15] LABS: Hematocrit 36.5 % (37.0-47.0); Mean Corpuscular HGB Conc 32.9 g/dl (31.0-35.0); Mean Corpuscular Hemoglobin 31.3 pg (27.0-33.0); Mean Corpuscular Volume 95.1 fL (80.0-98.0); Mean Platelet Volume 9.3 fL (9.4-12.3); Platelet Count 198 X10*3/uL (160-400); Red Blood Count 3.84 X10*6/uL (4.20-5.50); Red Cell Distribution Width 12.6 % (11.0-16.0); White Blood Count 4.9 X10*3/uL (4.8-10.8)
[2022-03-10 13:46] LABS: Alanine Aminotransferase 31 U/L (0-31); Albumin Level 3.5 g/dL (3.5-5.0); Alkaline Phosphatase 53 U/L (39-117); Anion Gap 15 (12-20); Aspartate Amino Transferase 34 U/L (5-31); Bilirubin Total 0.4 mg/dL (0.0-1.0); Blood Urea Nitrogen 16 mg/dL (9-16); Calcium 9.1 mg/dL (8.4-10.2); Carbon Dioxide 26 mmol/L (22-29); Chloride 102 mmol/L (96-108); Estimated Glomerular Filt Rate 54; Glucose Random 135 mg/dL (60-115); Potassium 4.9 mmol/L (3.3-5.1); Sodium 138 mmol/L (135-145); Total Protein 6.5 g/dL (6.5-8.0)
[2022-03-10 14:11] LABS: TSH reflex Free T4 5.41 uIU/mL (0.32-4.0)
[2022-03-10 14:51] LABS: Free T4 (Free Thyroxine) 1.22 ng/dL (0.71-1.85)
== END 2022-03-10 11:08 | disposition home or self-care (01) ==
LOC: HO.LAB 11:07
PROVIDERS: Absent Provider Internal Medicine Cardiovascular Disease; PCP Internal Medicine; Visit Provider Ophthalmology
DX: E03.8 Other specified hypothyroidism (principal); E11.9 Type 2 diabetes mellitus without complications; F31.12 Bipolar disorder, current episode manic without psychotic features, moderate; I48.19 Other persistent atrial fibrillation; I50.32 Chronic diastolic (congestive) heart failure; I48.0 Paroxysmal atrial fibrillation; H04.321 Acute dacryocystitis of right lacrimal passage
CPT/HCPCS: 36415; 80053; 84439; 84443; 85027

== ENCOUNTER 2022-05-06 16:07 | Outpatient (REF) | payer BC, OTHER, SELFPAY ==
[2022-05-06 16:25] LABS: MANUAL DIFF FLAG NO
[2022-05-06 17:23] LABS: Basophils Percent Auto 0.7 % (0-2); Eosinophils Absolute Auto 0.1 X10*3/uL (0.0-0.4); Eosinophils Percent Auto 1.7 % (0-4); Hematocrit 37.6 % (37.0-47.0); Hemoglobin 12.3 g/dl (12.0-16.0); Imm Gran Abs Auto 0.04 X10*3/uL (0.00-0.03); Imm Gran Pct Auto 0.7 % (0.0-0.4); Lymphocytes Absolute Auto 2.3 X10*3/uL (1.2-4.9); Lymphocytes Percent Auto 39.2 % (20-40); Mean Corpuscular HGB Conc 32.7 g/dl (31.0-35.0); Mean Corpuscular Hemoglobin 31.5 pg (27.0-33.0); Mean Corpuscular Volume 96.4 fL (80.0-98.0); Mean Platelet Volume 10.4 fL (9.4-12.3); Monocytes Absolute Auto 0.5 X10*3/uL (0.1-1.2); Monocytes Percent Auto 8.4 % (2-11); Neutrophils Absolute Auto 2.8 x10*3/uL (2.0-8.3); Neutrophils Percent Auto 49.3 % (45-73); Platelet Count 174 X10*3/uL (160-400); Red Cell Distribution Width 12.9 % (11.0-16.0); White Blood Count 5.7 X10*3/uL (4.8-10.8)
[2022-05-06 17:30] LABS: INTERNATIONAL NORM RATIO 1.1 (0.9-1.1); Prothrombin Time 12.7 SEC (10.0-13.1)
[2022-05-06 17:55] LABS: Anion Gap 19 (12-20); Blood Urea Nitrogen 10 mg/dL (9-16); Calcium 8.7 mg/dL (8.4-10.2); Carbon Dioxide 25 mmol/L (22-29); Chloride 100 mmol/L (96-108); Estimated Glomerular Filt Rate > 60; Glucose Random 242 mg/dL (60-115); Potassium 4.5 mmol/L (3.3-5.1); Sodium 139 mmol/L (135-145)
== END 2022-05-06 16:08 | disposition home or self-care (01) ==
LOC: HO.LAB 16:07
PROVIDERS: PCP Internal Medicine; Visit Provider Internal Medicine Cardiovascular Disease
DX: Z01.818 Encounter for other preprocedural examination (principal); I48.0 Paroxysmal atrial fibrillation
CPT/HCPCS: 36415; 80048; 85025; 85610

== ENCOUNTER 2022-07-06 11:11 | Outpatient (REF) | payer MEDICARE, BC, SELFPAY ==
[2022-07-06 11:27] LABS: MANUAL DIFF FLAG NO
[2022-07-06 11:52] LABS: Basophils Percent Auto 0.6 % (0-2); Eosinophils Absolute Auto 0.1 X10*3/uL (0.0-0.4); Eosinophils Percent Auto 1.9 % (0-4); Hematocrit 37.9 % (37.0-47.0); Hemoglobin 12.2 g/dl (12.0-16.0); Imm Gran Abs Auto 0.03 X10*3/uL (0.00-0.03); Imm Gran Pct Auto 0.6 % (0.0-0.4); Lymphocytes Absolute Auto 1.7 X10*3/uL (1.2-4.9); Lymphocytes Percent Auto 35.6 % (20-40); Mean Corpuscular HGB Conc 32.2 g/dl (31.0-35.0); Mean Corpuscular Hemoglobin 30.7 pg (27.0-33.0); Mean Corpuscular Volume 95.5 fL (80.0-98.0); Mean Platelet Volume 9.7 fL (9.4-12.3); Monocytes Absolute Auto 0.4 X10*3/uL (0.1-1.2); Monocytes Percent Auto 9.2 % (2-11); Neutrophils Absolute Auto 2.5 x10*3/uL (2.0-8.3); Neutrophils Percent Auto 52.1 % (45-73); Platelet Count 139 X10*3/uL (160-400); Red Blood Count 3.97 X10*6/uL (4.20-5.50); Red Cell Distribution Width 13.6 % (11.0-16.0); White Blood Count 4.8 X10*3/uL (4.8-10.8)
[2022-07-06 12:01] LABS: Estimated Average Glucose 148 mg/dL; Hemoglobin A1c % 6.8 %
[2022-07-06 12:23] LABS: Valproate 50.8 mcg/mL (50.0-100.0)
[2022-07-06 12:29] LABS: Cholesterol 203 mg/dL; HDL Cholesterol 39 mg/dL; LDL Cholesterol Calculated 120 mg/dl; Triglycerides 222 mg/dL
== END 2022-07-06 11:12 | disposition home or self-care (01) ==
LOC: HO.LAB 11:11
PROVIDERS: Absent Provider Registered Nurse; PCP Internal Medicine; Visit Provider Internal Medicine Cardiovascular Disease
DX: I48.92 Unspecified atrial flutter (principal); I50.32 Chronic diastolic (congestive) heart failure; Z79.899 Other long term (current) drug therapy
CPT/HCPCS: 36415; 80061; 80164; 83036; 85025; 93005; 99212

== ENCOUNTER → 2022-07-21 10:24 | Day surgery (SDC) | payer MEDICARE, BC, SELFPAY ==
[2022-07-16 13:35] VITALS: BMI 43.7
[2022-07-21 11:28] VITALS: BP 137/52; PULSE 61; RESP 18; TEMP 36.6; O2SAT 97
--- NOTE | 2022-07-21 11:43 | ECG_ITS ---
Test Reason : RHYTHM CHECK Blood Pressure : / mmHG Vent. Rate : 058 BPM Atrial Rate : 058 BPM P-R Int : 180 ms QRS Dur : 094 ms QT Int : 518 ms P-R-T Axes : 027 012 101 degrees QTc Int : 508 ms Sinus bradycardia Low voltage QRS T wave abnormality, consider anterior ischemia Prolonged QT Abnormal ECG When compared with ECG of 26-MAY-2021 23:07, Left bundle branch block is no longer Present T wave inversion now evident in Anterior leads Referred By: Kvng Isaac Electronically Signed By:FERDINAND MELÉNDEZ
== END ==
PROVIDERS: PCP Internal Medicine; Visit Provider Internal Medicine Cardiovascular Disease
DX: I48.19 Other persistent atrial fibrillation (principal); Z53.8 Procedure and treatment not carried out for other reasons
CPT/HCPCS: 93005

== ENCOUNTER → 2022-08-05 11:17 | Outpatient (REF) | payer MEDICARE, BC, SELFPAY ==
--- NOTE | 2022-08-05 11:20 | HM_ITS ---
Conclusion: 1. Patient was monitored for total period of 3 days 2. Baseline was normal sinus rhythm with average heart rate of 63 beats per minute with minimal heart rate 52 beats per minute 3. Frequent sinus bradycardia with heart rate between 50 and 60 beats per minute about 36.5% of the time 4. No significant pauses noted next 5. No sustained atrial fibrillation noted 6. Total of 254 PACs accounting for 0.14% of total beats account for occasional PACs 7. Patient reported 2 episodes of shortness of breath that correlated with sinus rhythm MTDD
== END ==
LOC: HO.CARD 11:17
PROVIDERS: Visit Provider Internal Medicine Cardiovascular Disease
DX: I48.92 Unspecified atrial flutter (principal)
CPT/HCPCS: 93242

== ENCOUNTER → 2022-08-23 13:23 | Outpatient (BNVA) | payer MEDICARE, BC, SELFPAY | PROVIDERS: PCP Internal Medicine; Referring Provider Internal Medicine; Visit Provider Internal Medicine Cardiovascular Disease | DX: I48.0 Paroxysmal atrial fibrillation (principal); I50.32 Chronic diastolic (congestive) heart failure | CPT/HCPCS: 93005; 99212 ==

== ENCOUNTER 2023-01-19 13:37 | Outpatient (REF) | payer MEDICARE, BC, OTHER, SELFPAY ==
--- NOTE | ~2023-01-19 | XR_ITS ---
EXAMINATION: XR HIP, LEFT CLINICAL INFORMATION: Pain. COMPARISON: Radiographs dated 01/11/2010. TECHNIQUE: AP and frog-leg lateral views of the left hip. FINDINGS: Bony alignment and mineralization are normal. The left acetabular joint space is well-maintained. There is minimal peripheral osteophyte formation of the articular surfaces of the left hip. No fracture or dislocation is seen. There are pelvic phleboliths. No foreign body is seen. XR/XR hip LT min 2V IMPRESSION: Minimal osteoarthritic change is seen of the left hip. There is no fracture or dislocation.
[2023-01-19 16:31] LABS: MANUAL DIFF FLAG NO
[2023-01-19 16:41] LABS: Basophils Percent Auto 0.6 % (0-2); Eosinophils Absolute Auto 0.1 X10*3/uL (0.0-0.4); Eosinophils Percent Auto 1.3 % (0-4); Hematocrit 40.7 % (37.0-47.0); Imm Gran Abs Auto 0.04 X10*3/uL (0.00-0.03); Imm Gran Pct Auto 0.8 % (0.0-0.4); Lymphocytes Absolute Auto 1.4 X10*3/uL (1.2-4.9); Mean Corpuscular HGB Conc 31.9 g/dl (31.0-35.0); Mean Corpuscular Volume 97.1 fL (80.0-98.0); Mean Platelet Volume 9.8 fL (9.4-12.3); Monocytes Absolute Auto 0.5 X10*3/uL (0.1-1.2); Monocytes Percent Auto 8.9 % (2-11); Neutrophils Absolute Auto 3.3 x10*3/uL (2.0-8.3); Neutrophils Percent Auto 61.4 % (45-73); Platelet Count 154 X10*3/uL (160-400); Red Blood Count 4.19 X10*6/uL (4.20-5.50); Red Cell Distribution Width 12.8 % (11.0-16.0); White Blood Count 5.3 X10*3/uL (4.8-10.8)
[2023-01-19 16:49] LABS: Estimated Average Glucose 157 mg/dL; Hemoglobin A1c % 7.1 %
[2023-01-19 17:02] LABS: Alanine Aminotransferase 13 U/L (0-31); Albumin Level 3.5 g/dL (3.5-5.0); Alkaline Phosphatase 49 U/L (39-117); Anion Gap 17 (12-20); Aspartate Amino Transferase 20 U/L (5-31); Bilirubin Total 0.4 mg/dL (0.0-1.0); Blood Urea Nitrogen 12 mg/dL (9-16); Calcium 8.8 mg/dL (8.4-10.2); Carbon Dioxide 32 mmol/L (22-29); Chloride 96 mmol/L (96-108); Estimated Glomerular Filt Rate > 60; Glucose Random 144 mg/dL (60-115); Potassium 4.5 mmol/L (3.3-5.1); Sodium 140 mmol/L (135-145); Total Protein 6.6 g/dL (6.5-8.0)
[2023-01-19 17:19] LABS: TSH reflex Free T4 5.41 uIU/mL (0.32-4.0)
[2023-01-19 17:49] LABS: Free T4 (Free Thyroxine) 1.29 ng/dL (0.71-1.85)
== END 2023-01-19 13:38 | disposition home or self-care (01) ==
LOC: HO.HMGCX 13:37
PROVIDERS: PCP Internal Medicine; Visit Provider Internal Medicine
DX: M25.552 Pain in left hip (principal); E11.9 Type 2 diabetes mellitus without complications; G47.9 Sleep disorder, unspecified; I10 Essential (primary) hypertension; I48.0 Paroxysmal atrial fibrillation
CPT/HCPCS: 36415; 73502; 80053; 83036; 84439; 84443; 85025

== ENCOUNTER 2023-03-03 05:54 | Outpatient (REF) | payer MEDICARE, BC, OTHER, SELFPAY ==
[2023-03-03 10:14] LABS: MANUAL DIFF FLAG NO
[2023-03-03 10:24] LABS: Basophils Percent Auto 0.6 % (0-2); Eosinophils Absolute Auto 0.1 X10*3/uL (0.0-0.4); Hematocrit 38.7 % (37.0-47.0); Hemoglobin 12.9 g/dl (12.0-16.0); Imm Gran Abs Auto 0.03 X10*3/uL (0.00-0.03); Imm Gran Pct Auto 0.6 % (0.0-0.4); Lymphocytes Absolute Auto 2.2 X10*3/uL (1.2-4.9); Lymphocytes Percent Auto 44.1 % (20-40); Mean Corpuscular HGB Conc 33.3 g/dl (31.0-35.0); Mean Corpuscular Hemoglobin 31.7 pg (27.0-33.0); Mean Corpuscular Volume 95.1 fL (80.0-98.0); Mean Platelet Volume 9.2 fL (9.4-12.3); Monocytes Absolute Auto 0.5 X10*3/uL (0.1-1.2); Monocytes Percent Auto 9.1 % (2-11); Neutrophils Absolute Auto 2.2 x10*3/uL (2.0-8.3); Neutrophils Percent Auto 43.6 % (45-73); Platelet Count 147 X10*3/uL (160-400); Red Blood Count 4.07 X10*6/uL (4.20-5.50)
[2023-03-03 11:16] LABS: Valproate 76.6 mcg/mL (50.0-100.0)
== END 2023-03-03 05:55 | disposition home or self-care (01) ==
LOC: HO.LHD 05:54
PROVIDERS: Visit Provider Internal Medicine
DX: F99 Mental disorder, not otherwise specified (principal)
CPT/HCPCS: 36415; 80164; 85025

== ENCOUNTER 2023-04-22 14:40 | Outpatient (REF) | payer MEDICARE, BC, OTHER, SELFPAY ==
[2023-04-22 14:54] LABS: Appearance Urine Clear; Color Urine Yellow; Glucose Urine UA Negative (Negative); Leukocyte Esterase Urine Moderate (2+) (Negative); Nitrite Urine Negative (Negative); PH 5.5 (5.0-9.0); UMIC TRIGGER UACC YES; Urine Blood Moderate (2+) (Negative); Urine Ketones Negative (Negative); Urine Protein Negative (Neg-Trace)
[2023-04-22 14:59] LABS: Bacteria Urine None Seen (None Seen); Hyaline Casts Urine 0-2 /LPF (0-2); RBC Urine >20 /HPF (0-2); UACC Culture Trigger YES; WBC Urine 21-50 /HPF (0-5)
== END 2023-04-22 14:41 | disposition home or self-care (01) ==
LOC: HO.LNP 14:40
PROVIDERS: Visit Provider Internal Medicine
DX: R35.0 Frequency of micturition (principal)
CPT/HCPCS: 81001; 87086; 87088; 87186

== ENCOUNTER 2023-05-13 14:36 | Outpatient (REF) | payer MEDICARE, BC, SELFPAY ==
[2023-05-16 19:58] LABS: Gliadin Deamidated IgA Ab <1.0 U/mL; Gliadin Deamidated IgG Ab <1.0 U/mL
[2023-05-17 11:39] LABS: Transglutaminase Ab IgG 2.5 U/mL; Transglutaminase IgA <1.0 U/mL
== END 2023-05-13 14:37 | disposition home or self-care (01) ==
LOC: HO.LAB 14:36
PROVIDERS: PCP Internal Medicine; Visit Provider Nurse Practitioner
DX: R15.9 Full incontinence of feces (principal); R19.7 Diarrhea, unspecified; Z91.09 Other allergy status, other than to drugs and biological substances
CPT/HCPCS: 36415; 86003; 86140; 86258; 86364; 99202

== ENCOUNTER 2023-05-13 14:36 | Outpatient (AMB) | payer MEDICARE, BC, SELFPAY ==
--- NOTE | 2023-05-13 14:54 | A.OFFVIS_ITS ---
Intake Vital Signs 05/13/23 15:02 Height 5 ft 3 in Weight 231 lb 7.766 oz BMI 41.0 BP 194/104 H Blood Pressure Location Lt radial Position Sitting Pulse 136 H Intake Visit Reasons: Full incontinence of feces Intake Note: Bianca presents in the office as a new patient. CC: She states that she has has to go to the bathroom every time she eats. Within 5 minutes she will have to go to the bathroom. All she had was her pills and water and she has already gone 6 times. Human Resources Officer Required: No Allergies aspirin [ASA] Allergy (Intermediate, Verified 05/31/23 09:32) GI PAIN, upset stomach HPI Full incontinence of feces HPI Details 67-year-old female here for initial evaluation of fecal incontinence. She is referred by Adithya Gutierrez of [facility] [place]. PMX Morbid obesity Paroxysmal atrial fibrillation -. Chronic anticoagulation Prolonged QT interval/left bundle branch block Congestive heart failure with diastolic dysfunction Diabetes Hypertension Hypothyroid Bipolar disorder/PTSD Vertigo Tremors Osteoarthritis of the left hip Urinary frequency * SURGICAL HISTORY Cardioversion and cardiac ablation Right lacrimal to insertion of the eye Right knee arthroscopy section Cholecystectomy Colonoscopy -2007 * ALLERGIES Aspirin * [employer] LABS: Laboratory Tests 01/19/23 01/19/23 03/03/23 14:01 14:01 09:50 WBC 5.0 Hgb 12.9 Hct 38.7 Plt Count 147 L Estimated GFR > 60 Hemoglobin A1c % 7.1 Total Bilirubin 0.4 AST 20 ALT 13 Alkaline Phosphata se 49 TSH 5.41 H Free T4 1.29 TODAY'S VISIT She has post prandial loose stools, this is a problem for her as she has limited mobility and is in a w/c. She has a very remote cholecystectomy about 25 years but this has been a problem for about 6 months. She recently stopped taking risperidone about the same time, and her trazodone has been increased recently, no other medication changes. They are questioning dumping syndrome. Her youngest daughter has trouble with her bowels and she is not sure if this is r/t CIC or diarrhea. Also he pts sister has dumping syndrome. She has a niece who has Crohns (brothers daughter). Her last colonoscopy was years ago and I find one in [address] Quintana that was negative. I will order the standard workup to try to exclude infection or other more severe illness as a cause to her diarrhea and in the meantime will start her on a trial of Carafate. We discuss a repeat screening colonoscopy at her next visit. This would also be good to try to exclude microscopic colitis etc.. However, she is not agreeable to this right now because she does not want a prep so we discuss Cologuard and watch the video and she is agreeable to try this. Return office visit in 4 weeks. [facility] Medical History Arthritis Bipolar 1 disorder Diabetes mellitus History of cardioversion History of wheezing HTN (hypertension) Hypothyroidism LBBB (left bundle branch block) On anticoagulant therapy On beta carlos at home PAF (paroxysmal atrial fibrillation) Persistent atrial fibrillation PTSD (post-traumatic stress disorder) Vertigo Surgical History History of cardiac radiofrequency ablation History of eye surgery Hx of arthroscopy of right knee Hx of section Hx of cholecystectomy Hx of colonoscopy Family History Father No problems noted. Mother No problems noted. Other Mental health disorder Substance use disorder Social History Household Members: Family Household Members Other:: daughter + Housing: House Do you presently have visiting nurse or other home services: No Alcohol intake: never Patient Tobacco Use Status: Former Tobacco user Quit Date: 1989 e-Cigarette/Vaping Use: Never Used Second Hand Smoke Exposure: No service: No Current occupational status: employed Sexual orientation: Straight/Heterosexual Cognitive needs: No Hearing needs: No Vision needs: Yes Review of Systems Const Denies fatigue, Denies fever(s), Denies night sweats, Denies poor appetite and Denies weight loss ENT Reports Normal hearing present, Denies dental pain, Denies dysphagia, Denies hearing loss, Denies mouth pain, Denies odynophagia, Denies throat swelling, Denies tongue swelling and Reports other (Dentition adequate) Card Reports no additional complaints Resp Reports no additional complaints GI Denies abdominal pain, Denies melena, Denies bloating, Denies hematochezia, Denies constipation, Reports GI cramping, Denies dysphagia, Denies excessive flatus, Denies early satiety, Reports heartburn, Reports diarrhea, Denies nausea, Denies odynophagia, Denies vomiting and Denies hematemesis Skin/Breast Denies pruritus, Denies lesions, Denies rash and Denies jaundice Neuro Reports Normal hearing present and Denies Abnormal speech present Psych Reports anxiety Endo Denies fatigue Aller/Immun Denies throat swelling and Denies tongue swelling Physical Exam Vital Signs: Last Vital Signs Pulse 136 H 05/13/23 15:02 BP 194/104 H 05/13/23 15:02 BMI result Body Mass Index 41.0 Const General: cooperative, no acute distress, well developed and well groomed Nutritional Appearance: well nourished and obese morbidly obese Orientation/consciousness: oriented to person, oriented to place and oriented to time Limitations: No language barrier and wheelchair HEENT Head: Yes normocephalic and Yes atraumatic Eyes General: appearance normal, both eyes and all related structures Pupils: Equal, round and reactive pupils present Neck Neck: Yes normal visual inspection and Yes no lymphadenopathy Thyroid: Thyroid normal Resp Effort & Inspection: normal respiratory effort and able to speak in complete sentences Auscultation: clear to auscultation bilaterally Cardio Rate: regular rate Rhythm: regular rhythm Heart sounds: Normal, physiologic split S2 sound present Peripheral pulses: radial pulses present and posterior tibial pulses present GI Inspection: No distended, Yes Abdominal panniculus present and Yes obesity Palpation (GI): Soft to palpation, nontender, no guarding, not rigid and No hepatosplenomegaly present Percussion: Yes normal to percussion Auscultation: normal bowel sounds Rectal Exam - Female: deferred Skin General skin exam: no rashes or lesions noted, turgor normal, skin not dry, no jaundice, No spider nevi and no striae Rashes: no rashes Nails: normal Neuro General: oriented to person, oriented to place and oriented to time Cranial nerves: Yes Equal, round and reactive pupils present and Yes Normal hearing present Speech: No Abnormal speech present Extrem General: Yes normal to inspection, No clubbing, No cyanosis and No edema Psych Appearance: grossly normal and well kempt Mental Status: mental status grossly normal Speech and movement: Normal speech and movement present Affect: normal affect Attitude: cooperative Thought process: Normal thought process present and not confabulating Thought content: Normal thought content present Insight: Limited insight present (Psych) Judgement: Limited judgement present (Psych) Assessment & Plan Assessment & Plan (1) Rectal incontinence: Code(s): R15.9 - Full incontinence of feces Plan: She has post prandial loose stools, this is a problem for her as she has limited mobility and is in a w/c. She has a very remote cholecystectomy about 25 years but this has been a problem for about 6 months. She recently stopped taking risperidone about the same time, and her trazodone has been increased recently, no other medication changes. They are questioning dumping syndrome. I educate her that sometimes are pancreas can keep up after the gallbladder is removed making the enzymes needed to digest fat and then we reached a point as we age with this is no longer possible. This could be what happened to her. Her youngest daughter has trouble with her bowels and she is not sure if this is r/t CIC or diarrhea. Also he pts sister has dumping syndrome. She has a niece who has Crohns (brothers daughter). Her last colonoscopy was years ago and I find one in [address] Quintana that was negative. I will order the standard workup to try to exclude infection or other more severe illness as a cause to her diarrhea and in the meantime will start her on a trial of Carafate. We discuss a repeat screening colonoscopy at her next visit. This would also be good to try to exclude microscopic colitis etc.. However, she is not agreeable to this right now because she does not want a prep so we discuss Cologuard and watch the video and she is agreeable to try this. Return office visit in 4 weeks. (2) Diarrhea: Code(s): R19.7 - Diarrhea, unspecified Orders: Orders Calprotectin, Fecal 05/13/23 R19.7 - Diarrhea, unspecified, R15.9 - Full incontinence of feces Pancreatic Elastase-1 05/13/23 R19.7 - Diarrhea, unspecified, R15.9 - Full incontinence of feces C Reactive Protein 05/13/23 R19.7 - Diarrhea, unspecified, R15.9 - Full incontinence of feces Rast Allergen 05/13/23 R19.7 - Diarrhea, unspecified, R15.9 - Full incontinence of feces Gliadin Ab Panel 05/13/23 R19.7 - Diarrhea, unspecified, R15.9 - Full incontinence of feces Transglutaminase IgA 05/13/23 R19.7 - Diarrhea, unspecified, R15.9 - Full incontinence of feces Transglutaminase Ab IgG 05/13/23 R19.7 - Diarrhea, unspecified, R15.9 - Full incontinence of feces GI Panel 05/13/23 R19.7 - Diarrhea, unspecified, R15.9 - Full incontinence of feces Ova and Parasite 05/13/23 R19.7 - Diarrhea, unspecified, R15.9 - Full incontinence of feces Medications: New sucralfate (Carafate) 2 grams (2 x 1 gram) PO QNOON 60 tabs 6RF R19.7 - Diarrhea, unspecified, R15.9 - Full incontinence of feces Coding Level of Care Code New Pt Level 3 (98664) Diagnoses Rectal incontinence R15.9 Diarrhea R19.7
[2023-05-13 15:02] VITALS: BP 194/104; PULSE 136; BMI 41.0
== END 2023-05-13 15:43 | disposition home or self-care (01) ==
PROVIDERS: PCP Internal Medicine; Visit Provider Nurse Practitioner
DX: R15.9 Full incontinence of feces (principal); R19.7 Diarrhea, unspecified
CPT/HCPCS: 99203

== ENCOUNTER 2023-05-23 18:08 | Emergency (ER) | payer MEDICARE, BC, SELFPAY ==
--- NOTE | ~2023-05-23 | CT_ITS ---
EXAMINATION: CT HEAD WITHOUT CONTRAST CLINICAL INFORMATION: Headache status-post injury. COMPARISON: CT brain dated 01/15/2021. TECHNIQUE: Contiguous axial imaging was performed from the skull base to vertex without intravenous administration of contrast. Multiplanar reformatted images are submitted. This CT examination was performed using dose optimization techniques as appropriate, variously including the following: *Automated exposure control *Adjustment of mA and/or kV according to patient size (this includes techniques or standardized protocols for targeted exams where dose is matched to indication/reason for exam; i.e. extremities or head) *Use of iterative reconstruction technique DLP: 804 mGy-cm (head and cervical spine) FINDINGS: There is no acute intracranial hemorrhage or evidence of territorial infarction. No abnormal mass effect or midline shift is seen. Celestin to white matter differentiation is well preserved. There is mild patchy low attenuation change in the periventricular white matter spaces. The ventricles are normal in size. No extra-axial fluid collections are identified. In the right frontal region (5:14 and 8:83), an 8 mm calcified meningioma is seen without associated mass effect. This is unchanged from 01/17/2021 (4:6). The calvarium and scalp soft tissues are normal. The middle ear cavity and mastoid air cells are clear. The visualized paranasal sinuses are clear. CT/CT cervical spine wo IV con IMPRESSION: 1. No acute intracranial pathology. 2. There is mild patchy low attenuation change in the periventricular white matter spaces, commonly associated with chronic microangiopathy EXAMINATION: CT CERVICAL SPINE WITHOUT CONTRAST CLINICAL INFORMATION: Neck pain status-post fall. COMPARISON: None available. TECHNIQUE: Contiguous axial imaging was performed through the cervical spine without intravenous administration of contrast. Multiplanar reformatted images are submitted. This CT examination was performed using dose optimization techniques as appropriate, variously including the following: *Automated exposure control *Adjustment of mA and/or kV according to patient size (this includes techniques or standardized protocols for targeted exams where dose is matched to indication/reason for exam; i.e. extremities or head) *Use of iterative reconstruction technique DLP: As above FINDINGS: Vertebral body heights and alignment are normal. The cervical disc spaces are well-maintained. No acute fracture or spondylolisthesis is seen. There is multi-level cervical and upper thoracic spondylosis. The posterior elements are intact. There is no prevertebral soft tissue swelling. The dens is intact. The bilateral lung apices are clear. IMPRESSION: 1. No acute fracture or spondylolisthesis is seen. 2. The cervical disc spaces are well-maintained. 3. There is multi-level cervical spondylosis.. Fleischner guidelines were followed.
--- NOTE | ~2023-05-23 | XR_ITS ---
EXAMINATION: XR SHOULDER, RIGHT CLINICAL INFORMATION: Fall with right shoulder pain COMPARISON: None available. TECHNIQUE: Three views of the right shoulder. FINDINGS: Humeral head is well-seated in the glenoid fossa. I do not appreciate any acute fracture or subluxation. General changes are seen with marginal osteophytosis in the humeral neck region as well as hypertrophic degenerative changes in the acromioclavicular joint. Visualized right ribs unremarkable. XR/XR shoulder RT min 2V IMPRESSION: Degenerative changes but no acute fracture or subluxation.
--- NOTE | 2023-05-23 18:10 | ED_ITS ---
HPI - Fall General Chief Complaint: Fall Stated Complaint: fall, hit head and shoulders, per ems Time Seen by Provider: 05/23/23 18:09 Source: patient, EMS, RN notes reviewed and old records reviewed Mode of arrival: EMS History of Present Illness HPI Narrative: 67-year-old female with past medical history bipolar, diabetes, HTN, hypothyroid, LBBB, AFib on Xarelto, tremor, presenting to the ED via EMS complaining of head strike and right shoulder pain s/p mechanical trip and fall [employer]. Patient states she has baseline immobile, however try to use her walker to get to the commode and fell. Denies LOC. Was aided off the ground by neig hbor/EMS. Denies neck/back pain, CP/SOB, abdominal pain, nausea/vomiting. Denies symptoms prior to fall. MD complaint: fall Related Data Home Medications Medication Instructions Recorded Confirmed meclizine 25 mg tablet 25 mg PO DAILY PRN Vertigo 12/31/21 01/19/23 amiodarone 400 mg tablet 100 mg PO DAILY 07/09/22 01/19/23 trazodone 150 mg tablet 225 mg PO BEDTIME 07/09/22 01/19/23 Previous Rx's Medication Instructions Recorded divalproex 500 mg tablet,delayed 500 mg PO BID 30 days #60 tabs 01/29/21 release divalproex 250 mg tablet,delayed 250 mg PO BEDTIME #14 tabs 02/16/21 release metoprolol succinate 50 mg 50 mg PO DAILY 90 days #90 tabs 11/09/21 tablet,extended release 24 hr furosemide 20 mg tablet (Lasix) 20 mg PO DAILY #30 tabs 07/06/22 rivaroxaban 20 mg tablet (Xarelto) 20 mg PO QPM #90 tabs 08/26/22 levothyroxine 137 mcg tablet 137 mcg PO DAILY for disorder of 01/21/23 thyroid gland 90 days #90 tabs sucralfate 1 gram tablet (Carafate) 2 g PO QNOON #60 tabs 05/17/23 Allergies Allergy/AdvReac Type Severity Reaction Status Date / Time aspirin [ASA] Allergy Intermediate GI PAIN, Verified 05/13/23 15:02 upset stomach Review of Systems Review of Systems: Constitutional: No Fever, No Chills, No Fatigue, No Malaise ENT/Mouth: No Ear Pain, No Nasal Congestion, No sore throat, No Rhinorrhea, No Swallowing Difficulty Eyes: No Eye Pain, No Swelling, No Redness, No Vision Changes Cardiovascular: No Chest Pain, No SOB, No Edema, No Palpitations Respiratory: No Cough, No Sputum, No Wheezing, No Smoke Exposure, No Dyspnea Gastrointestinal: No Nausea, No Vomiting, No Diarrhea, No Constipation, No Abdominal pain Genitourinary: No irregular bleeding, No Dysuria, No Urinary Frequency, No Serafin turia, No Urinary Incontinence/retention, No Flank Pain Musculoskeletal: + joint pain, No Myalgias, No Joint Swelling Skin: No Skin Lesions, No rash Neuro: No Weakness, No Numbness, No Paresthesias, No Loss of Consciousness, No Dizziness, + Headache Yes all other systems are reviewed and are negative Constitutional: Constitutional: Reports as per HPI Neurologic: Denies Abnormal speech present [facility] Past Medical History Attestation statement: The following information was validated with the patient. Source: old records reviewed Medical History Arthritis Bipolar 1 disorder Diabetes mellitus History of cardioversion History of wheezing HTN (hypertension) Hypothyroidism LBBB (left bundle branch block) On anticoagulant therapy On beta carlos at home PAF (paroxysmal atrial fibrillation) Persistent atrial fibrillation PTSD (post-traumatic stress disorder) Vertigo Surgical History History of cardiac radiofrequency ablation History of eye surgery Hx of arthroscopy of right knee Hx of section Hx of cholecystectomy Hx of colonoscopy Family History Family History Father No problems noted. Mother No problems noted. Other Mental health disorder Substance use disorder Social History Social History Household Members: Family Household Members Other:: daughter + Housing: House Do you presently have visiting nurse or other home services: No Alcohol intake: never Patient Tobacco Use Status: Former Tobacco user Quit Date: 1989 Smoked in Last 30 Days: No e-Cigarette/Vaping Use: Never Used Second Hand Smoke Exposure: No Use of substances other than those prescribed or required for medical reasons: No Advance Directives: No Advance Directives Information Provided: No service: No Current occupational status: employed Sexual orientation: Straight/Heterosexual Cognitive needs: No Hearing needs: No Vision needs: Yes Physical Exam Vital Signs: Vital Signs: Last Vital Signs Temp 98.3 F 05/23/23 20:38 Pulse 102 H 05/24/23 00:09 Resp 18 05/24/23 00:09 BP 132/66 05/24/23 00:09 Pulse Ox 95 05/23/23 21:55 O2 Del Method Room Air 05/23/23 20:38 BMI result Body Mass Index 45.3 Const: General: cooperative and no acute distress Nutritional Appearance: obese Orientation/consciousness: patient oriented x3 Limitations: no limitations HEENT: Head: Yes normal to inspection and Yes atraumatic Ears: hearing grossly normal bilaterally General nose exam: Normal external nose present Face and sinus: Yes normal facial exam Throat: Yes posterior oropharynx normal and Yes uvula midline Eyes: General: appearance normal, both eyes and all related structures Pupils: Equal, round and reactive pupils present EOM: EOMs intact bilaterally Neck: Other: C-collar in place Neck: Yes normal visual inspection and Yes no meningeal signs Chest: Chest palpation & inspection: normal inspection of the chest Resp: Effort & Inspection: normal respiratory effort and no respiratory distress Auscultation: clear to auscultation bilaterally Cardio: Rate: regular rate Heart sounds: S1 normal heart sound present and S2 normal heart sound present GI: Inspection: Yes normal to inspection Palpation (GI): Soft to palpation, nontender, no guarding and not rigid Back/Spine/Pelvis: Other: No midline cervical/thoracic/lumbar spinous tenderness/step-off or deformity Skin: Rashes: no rashes Wounds: no wounds Neuro: General: patient oriented x3, tone normal, moves all extremities, no meningeal signs, no focal motor deficits and CN's II-XI intact bilaterally Cranial nerves: Yes CN's II-XII intact bilaterally, Yes Equal, round and reactive pupils present and Yes Bilaterally intact EOM present Cognition (Neuro): normal cognition Speech: No Abnormal speech present Extrem: Other: Right shoulder nontender, slightly limited ROM 2/2 pain, no deformity/erythema or ecchymosis. Neurovascularly intact distally. General: Yes normal to inspection Course Course Course Narrative: -1900--EKG suspicious for a flutter at a rate of 115 > will give 2.5mg IV Metoprolol -2258--heart rate improved 103-114 > patient also with baseline tremor likely making heart rate an accurate. Did not take home dose of metoprolol ER, will give prior to discharge XR shoulder RT min 2V IMPRESSION: Degenerative changes but no acute fracture or subluxation. ? CT head/brain wo IV con IMPRESSION: 1. No acute intracranial pathology. ? 2. There is mild patchy low attenuation change in the periventricular white matter spaces, commonly associated with chronic microangiopathy CT CERVICAL SPINE WITHOUT CONTRAST: IMPRESSION: 1. No acute fracture or spondylolisthesis is seen. 2. The cervical disc spaces are well-maintained. 3. There is multi-level cervical spondylosis..? ? Fleischner guidelines were followed Results discussed with patient including worrisome signs and symptoms and strict return precautions, and when to return to the emergency department. They verbalized understanding and feel safe for discharge at this time. Medications Administered Discontinued Medications Generic Name Dose Route Start Last Admin Trade Name Freq PRN Reason Stop Dose Admin Metoprolol Succinate 50 mg 05/23/23 22:56 05/23/23 23:32 Metoprolol Succinate Er 50 Mg Tab.Er.24h PO 05/23/23 22:57 50 mg ONCE ONE Administration Protocol Metoprolol Tartrate 2.5 mg 05/23/23 18:57 05/23/23 22:03 Metoprolol Tartrate 5 Mg/5 Ml Vial IVPUSH 05/23/23 18:58 2.5 mg ONCE ONE Administration Medical Decision Making Medical Decision Making MDM Narrative: 67-year-old female with past medical history bipolar, diabetes, HTN, hypothyroid, LBBB, AFib on Xarelto, tremor, presenting to the ED via EMS complaining of head strike and right shoulder pain s/p mechanical trip and fall [employer]. On exam mildly tachycardic likely from pain, NAD, nontoxic-appearing, C- collar in place, physical exam as noted above, no focal neuro deficits. Concern for ICH vs fractures. Low suspicion for ACS, dislocation, dissection Plan: Head/C-spine CT, CXR Please refer to course for remaining clinical decision making, interpretation of labs/imaging results, and discussions with consultants and/or family members. Differential Diagnosis Differential Diagnoses: The differential diagnosis associated with the presentation includes As above Admission/Observation Consideration of admission/observation: Escalation of care including admission/observation considered (Pending imaging results) Independent Interpretation I performed an independent interpretation of an: EKG (EKG low-voltage QRS, a flutter morphology but rhythm undetermined. rate of 115. QRS has increased. No STEMI) and Plain X-Ray Radiology Impression Discussion of test interpretation with radiology: I have reviewed the radiologist's reading. Independent Historian Clinical information obtained from an independent historian. History obtained from or confirmed by: EMS External Record Review External record reviewed: Inpatient record, Office record, Outpatient record, Prior outpatient labs, Prior outpatient radiology, Primary care record and Outside ED record Tests considered The following testing was considered but not selected: As above Prescription Management I considered prescription management with: Pain Medication Chronic Conditions Patient?s care impacted by: Diabetes and Hypertension Discharge Plan Discharge Clinical Impression: Head injury, Right shoulder pain, Atrial flutter, chronic Patient Disposition: Home, Self-Care Instructions: Atrial Flutter (DC), Head Injury (ED), Shoulder Pain (ED) Additional Instructions: Your head and neck CT scans are unremarkable Her shoulder x-ray does not show any fractures Continue home prescribed medications Please close follow-up with her doctor If you develop chest pain, shortness of breath, resistant worsening headache return to the ED Prescriptions: No Action metoprolol succinate 50 mg tablet extended release 24 hr 50 mg PO DAILY 90 Days Qty: 90 3RF Xarelto 20 mg tablet 20 mg PO QPM Qty: 90 3RF levothyroxine 137 mcg tablet 137 mcg PO DAILY 90 Days Qty: 90 1RF sucralfate [Carafate] 1 gram tablet 2 g PO QNOON Qty: 60 6RF divalproex 500 mg Tablet,Delayed Release (Dr/Ec) 500 mg PO BID 30 Days Qty: 60 0RF divalproex 250 mg tablet,delayed release (DR/EC) 250 mg PO BEDTIME Qty: 14 0RF amiodarone 400 mg tablet 100 mg PO DAILY meclizine 25 mg tablet 25 mg PO DAILY PRN (Reason: Vertigo) furosemide [Lasix] 20 mg tablet 20 mg PO DAILY Qty: 30 5RF trazodone 150 mg tablet 225 mg PO BEDTIME Referrals: Adithya Gutierrez MD [Primary Care Provider] - 3 days Interventions: ED Discharge Assessment Last Done: 05/24/23 00:18 Discharge Date/Time: 05/24/23 00:18
[2023-05-23 18:17] VITALS: BP 109/60; BP 128/68; PULSE 111; RESP 18; O2SAT 94; O2SAT 97; BMI 45.3
--- NOTE | 2023-05-23 18:34 | ECG_ITS ---
Test Reason : A.FIB Blood Pressure : / mmHG Vent. Rate : 115 BPM Atrial Rate : 091 BPM P-R Int : 000 ms QRS Dur : 120 ms QT Int : 380 ms P-R-T Axes : 000 -05 139 degrees QTc Int : 525 ms Poor data quality, interpretation may be adversely affected Possible Atrial fibrillation with rapid ventricular response Low voltage QRS Non-specific intra-ventricular conduction delay ST & T wave abnormality, consider lateral ischemia Abnormal ECG When compared with ECG of 21-JUL-2022 11:47, Possible Atrial fibrillation with rapid ventricular response has replaced Normal sinus rhythm QRS duration has increased T wave inversion no longer evident in Anterior leads Referred By: Shirley Taylor Electronically Signed By:TC LEWIS MD
--- NOTE | 2023-05-23 18:35 | PC.NURSE ---
pt axox4, bp soft 100/70, afib on montior 105-120 bpm, sats 97% RA; Shirley MASON aware. skin wpd. pt states fell at home; uses walker, rushing to bathroom, tripped and fell; +headstrike; denies loc. +thinners (xarelto). c-collar in place from ems. pt denies head/neck/back pain; reports R. shoulder pain. neuros intact. awaiting imaging; call mena within reach.
[2023-05-23 20:38] VITALS: BP 137/74; PULSE 124; RESP 18; TEMP 36.8; O2SAT 95
--- NOTE | 2023-05-23 21:38 | PC.NURSE ---
C-collar cleared per provider for negative CT result.
[2023-05-23 21:55] VITALS: BP 127/65; PULSE 117; RESP 18; O2SAT 95
[2023-05-23] MEDS: Metoprolol Tartrate 5 MG/5 ML VIAL 2.5 MG IVPUSH (22:03)
[2023-05-23] MEDS: Metoprolol Succinate ER 50 MG TAB.ER.24H PO (23:32)
--- NOTE | 2023-05-23 23:32 | MHC.EDTECH ---
Call out to [facility] @[id number] for transport back home ETA of 30 minutes was given
[2023-05-23 23:57] VITALS: PULSE 106
[2023-05-24 00:09] VITALS: BP 132/66; PULSE 102; RESP 18
== END 2023-05-24 00:18 | disposition home or self-care (01) ==
PROVIDERS: Emergency Provider Student in an Organized Health Care Education/Training Program; PCP Internal Medicine
DX: S09.90XA Unspecified injury of head, initial encounter (principal); W01.0XXA Fall on same level from slipping, tripping and stumbling without subsequent striking against object, initial encounter; M25.511 Pain in right shoulder; I48.0 Paroxysmal atrial fibrillation; E11.9 Type 2 diabetes mellitus without complications; I10 Essential (primary) hypertension; Z79.01 Long term (current) use of anticoagulants; Z79.899 Other long term (current) drug therapy; Z87.891 Personal history of nicotine dependence; Y93.9 Activity, unspecified; Y92.019 Unspecified place in single-family (private) house as the place of occurrence of the external cause; Y99.9 Unspecified external cause status
CPT/HCPCS: 70450; 72125; 73030; 93005; 96374; 99284

== ENCOUNTER → 2023-05-23 18:34 | Outpatient (BNV) | payer MEDICARE, BC, SELFPAY | PROVIDERS: Emergency Provider Student in an Organized Health Care Education/Training Program; PCP Internal Medicine; Visit Provider Internal Medicine Cardiovascular Disease | DX: I48.19 Other persistent atrial fibrillation (principal) | CPT/HCPCS: 93010 ==

== ENCOUNTER 2023-05-31 09:14 | Outpatient (AMB) | payer MEDICARE, BC, OTHER, SELFPAY ==
--- NOTE | 2023-05-31 09:27 | A.OFFPC_ITS ---
Vital Signs 05/31/23 09:32 Height 5 ft 3 in Weight 254 lb BMI 45.0 BP 120/80 Blood Pressure Location Rt brachial Position Sitting Pulse 100 Pulse Source Pulse Oximeter Pulse Oximetry (%) 97 Oxygen Delivery Method Room Air Intake Visit Reasons: 3m follow up after labs/unsteady on feet Allergies aspirin [ASA] Allergy (Intermediate, Verified 05/31/23 09:32) GI PAIN, upset stomach Medication List - Last Reconciled 05/31/23 by Adithya Gutierrez MD amiodarone 100 mg PO DAILY divalproex 500 mg PO BID 30 days divalproex 250 mg PO BEDTIME furosemide (Lasix) 20 mg PO DAILY levothyroxine 137 mcg PO DAILY 90 days meclizine 25 mg PO DAILY PRN metoprolol succinate ER 50 mg PO DAILY 90 days rivaroxaban (Xarelto) 20 mg PO QPM sucralfate (Carafate) 2 grams (2 x 1 gram) PO QNOON trazodone 225 mg PO BEDTIME Tobacco use date assessed: 01/19/23 HPI 3m follow up after labs/unsteady on feet HPI Details Patient is 67-year-old female with a history of bipolar disorder, diabetes diet controlled, hypertension, hypothyroidism last TSH was elevated need to repeat labs. History of left bundle chely block, atrial fibrillation on Xarelto, tremor. Patient presented to emergency room on 05/23/2023 after having a mechanical fall. She has difficulty walking and is baseline immobile. Patient tried to use walker to get to commode and fell. There was no loss of consciousness She denied neck or back pain chest pain or shortness of breath there was no nausea vomiting or abdominal pain. Her blood pressure was 132/66 pulse ox was 95% afebrile [facility] exam revealed nonfocal finding EKG was suspicious of flutter at the rate of 115 she was given IV metoprolol heart rate improved to 103 X-ray shoulder right showed degenerated changes but no fracture or subluxation. CT scan head no acute intracranial pathology Cervical spine CT scan showed no acute fracture , cervical disc spaces well maintained Patient was discharged after evaluation She is on metoprolol 50 mg once a day and Xarelto 20 mg. And amiodarone 400 mg through Cardiology along with furosemide 20 mg Patient is on levothyroxine 137 mcg and is in need of TSH lab test Patient also take divalproex due to bipolar disorder, and trazodone 150 mg at bedtime along with meclizine for dizziness Her bus is 100 with blood pressure 120/80 today I have ordered UA as well as she is complaining of frequency of urination Patient is seeing Gastroenterology for chronic diarrhea and has appointment next week She also need order for physical therapy to be done in the department patient has been having physical therapy at home but she has exhausted all her visits Physical therapy did help her she is able to stand up now and walk with the help of walker with assistance. She is also requesting Depakote level which is being prescribed through Psychiatry she is due for that. Once report available I will mail it to the patient so she can provide the report to her psychiatrist. [facility], LAT[facility] Medical History Arthritis Bipolar 1 disorder Diabetes mellitus History of cardioversion History of wheezing HTN (hypertension) Hypothyroidism LBBB (left bundle branch block) On anticoagulant therapy On beta carlos at home PAF (paroxysmal atrial fibrillation) Persistent atrial fibrillation PTSD (post-traumatic stress disorder) Vertigo Surgical History History of cardiac radiofrequency ablation History of eye surgery Hx of arthroscopy of right knee Hx of section Hx of cholecystectomy Hx of colonoscopy Family History Father No problems noted. Mother No problems noted. Other Mental health disorder Substance use disorder Social History Household Members: Family Household Members Other:: daughter + Housing: House Do you presently have visiting nurse or other home services: No Alcohol intake: never Patient Tobacco Use Status: Former Tobacco user Quit Date: 1989 e-Cigarette/Vaping Use: Never Used Second Hand Smoke Exposure: No service: No Current occupational status: employed Sexual orientation: Straight/Heterosexual Cognitive needs: No Hearing needs: No Vision needs: Yes Questionnaire Thrive Questionnaire Date Thrive assessed: 07/09/22 ZAID-7 AMB Questionnaire ZAID-7 Date ZAID - 7 assessed: 07/09/22 Source: Developed by Drs. Galo Triplett, Lavern Israel, Darion Jarvis and colleagues, with an educational lisette from [employer]. Review of Systems Const Denies chills and Denies fever(s) ENT Denies epistaxis and Denies nasal discharge Card Denies chest pain Resp Denies chest congestion, Denies cough and Denies hemoptysis GI Denies nausea Skin/Breast Denies rash Neuro Reports no additional complaints Psych Reports no additional complaints Endo Reports no additional complaints Physical exam (Primary Care) Vital Signs: Last Vital Signs Pulse 100 05/31/23 09:32 BP 120/80 05/31/23 09:32 Pulse Ox 97 05/31/23 09:32 Oxygen Delivery Method Room Air 05/31/23 09:32 BMI result Body Mass Index 45.0 Tobacco/Smoking Status: Tobacco use Status Tobacco use date assessed 01/19/23 05/31/23 09:29 Patient Tobacco Use Status Former Tobacco user 05/31/23 09:29 e-Cigarette/Vaping Use Never Used 05/31/23 09:29 Thrive Assessment: Date of Thrive Assessment Date Thrive assessed 07/09/22 05/31/23 09:29 Const General: cooperative, comfortable and no acute distress Orientation/consciousness: patient oriented x3 HENMT Head: Yes normocephalic Eyes General: appearance normal, both eyes and all related structures Neck Neck: Yes supple Resp Effort & Inspection: normal respiratory effort, no cough and no stridor Cardio Rhythm: regular rhythm Heart sounds: S1 normal heart sound present and S2 normal heart sound present Skin General skin exam: turgor normal Neuro Other: Patient is sitting in wheelchair with coarse tremor bilateral hands General: patient oriented x3, tone normal and moves all extremities Extrem Right lower extremity: no edema Left lower extremity: no edema Assessment and Plan Assessment & Plan (1) Hospital discharge follow-up: Code(s): Z09 - Encounter for follow-up examination after completed treatment for conditions other than malignant neoplasm (2) Recurrent falls: Code(s): R29.6 - Repeated falls (3) Diabetes mellitus: Comment: Diet controlled Code(s): E11.9 - Type 2 diabetes mellitus without complications (4) HTN (hypertension): Comment: As above Code(s): I10 - Essential (primary) hypertension (5) Morbid obesity due to excess calories: Code(s): E66.01 - Morbid (severe) obesity due to excess calories (6) Diastolic dysfunction with chronic heart failure: Code(s): I50.32 - Chronic diastolic (congestive) heart failure (7) Weakness: Code(s): R53.1 - Weakness (8) Difficulty walking: Code(s): R26.2 - Difficulty in walking, not elsewhere classified (9) Frequency of urination: Code(s): R35.0 - Frequency of micturition (10) Bipolar 1 disorder, manic, moderate: Code(s): F31.12 - Bipolar disorder, current episode manic without psychotic features, moderate Plan Patient is 67-year-old female with a history of bipolar disorder, diabetes diet controlled, hypertension, hypothyroidism last TSH was elevated need to repeat labs. History of left bundle chely block, atrial fibrillation on Xarelto, tremor. Patient presented to emergency room on 05/23/2023 after having a mechanical fall. She has difficulty walking and is baseline immobile. Patient tried to use walker to get to commode and fell. There was no loss of consciousness She denied neck or back pain chest pain or shortness of breath there was no nausea vomiting or abdominal pain. Her blood pressure was 132/66 pulse ox was 95% afebrile [facility] exam revealed nonfocal finding EKG was suspicious of flutter at the rate of 115 she was given IV metoprolol heart rate improved to 103 X-ray shoulder right showed degenerated changes but no fracture or subluxation. CT scan head no acute intracranial pathology Cervical spine CT scan showed no acute fracture , cervical disc spaces well maintained Patient was discharged after evaluation She is on metoprolol 50 mg once a day and Xarelto 20 mg. And amiodarone 400 mg through Cardiology along with furosemide 20 mg Patient is on levothyroxine 137 mcg and is in need of TSH lab test Patient also take divalproex due to bipolar disorder, and trazodone 150 mg at bedtime along with meclizine for dizziness Her bus is 100 with blood pressure 120/80 today I have ordered UA as well as she is complaining of frequency of urination Patient is seeing Gastroenterology for chronic diarrhea and has appointment next week She also need order for physical therapy to be done in the department patient has been having physical therapy at home but she has exhausted all her visits Physical therapy did help her she is able to stand up now and walk with the help of walker with assistance. She is also requesting Depakote level which is being prescribed through Psychiatry she is due for that. Once report available I will mail it to the patient so she can provide the report to her psychiatrist. Orders: Orders Comprehensive Met. Panel Today E11.9 - Type 2 diabetes mellitus without complications, E66.01 - Morbid (severe) obesity due to excess calories, I10 - Essential (primary) hypertension, I50.32 - Chronic diastolic (congestive) heart failure, R26.2 - Difficulty in walking, not elsewhere classified, R53.1 - Weakness Hemoglobin A1c Today E11.9 - Type 2 diabetes mellitus without complications, E66.01 - Morbid (severe) obesity due to excess calories, I10 - Essential (primary) hypertension, I50.32 - Chronic diastolic (congestive) heart failure, R26.2 - Difficulty in walking, not elsewhere classified, R53.1 - Weakness TSH reflex Free T4 Today E11.9 - Type 2 diabetes mellitus without complications, E66.01 - Morbid (severe) obesity due to excess calories, I10 - Essential (primary) hypertension, I50.32 - Chronic diastolic (congestive) heart failure, R26.2 - Difficulty in walking, not elsewhere classified, R53.1 - Weakness Complete Blood Count Auto Diff Today E11.9 - Type 2 diabetes mellitus without complications, E66.01 - Morbid (severe) obesity due to excess calories, I10 - Essential (primary) hypertension, I50.32 - Chronic diastolic (congestive) heart failure, R26.2 - Difficulty in walking, not elsewhere classified, R53.1 - Weakness Valproate Today F31.12 - Bipolar disorder, current episode manic without psychotic features, moderate, R35.0 - Frequency of micturition UA CC w/rflx Micro + Cult Today F31.12 - Bipolar disorder, current episode manic without psychotic features, moderate, R35.0 - Frequency of micturition PT Evaluation and Treatment Today R26.2 - Difficulty in walking, not elsewhere classified Coding Level of Care Code Est Pt Level 5 (49173) Diagnoses Hospital discharge follow-up Z09 Recurrent falls R29.6 Diabetes mellitus E11.9 HTN (hypertension) I10 Morbid obesity due to excess calories E66.01 Diastolic dysfunction with chronic heart failure I50.32 Weakness R53.1 Difficulty walking R26.2 Frequency of urination R35.0 Bipolar 1 disorder, manic, moderate F31.12 Time Spent (min) 45 Comment Reviewing chart, [id number], coordination of care
[2023-05-31 09:32] VITALS: BP 120/80; PULSE 100; O2SAT 97; BMI 45.0
== END 2023-05-31 10:51 | disposition home or self-care (01) ==
PROVIDERS: PCP Internal Medicine; Visit Provider Internal Medicine
DX: R29.6 Repeated falls (principal); E11.9 Type 2 diabetes mellitus without complications; I10 Essential (primary) hypertension; E66.01 Morbid (severe) obesity due to excess calories; I50.32 Chronic diastolic (congestive) heart failure; R53.1 Weakness; R26.2 Difficulty in walking, not elsewhere classified; R35.0 Frequency of micturition; F31.12 Bipolar disorder, current episode manic without psychotic features, moderate
CPT/HCPCS: 99215

== ENCOUNTER 2023-05-31 10:02 | Outpatient (REF) | payer MEDICARE, BC, SELFPAY ==
[2023-05-31 13:26] LABS: MANUAL DIFF FLAG NO
[2023-05-31 13:47] LABS: Basophils Percent Auto 0.7 % (0-2); Eosinophils Absolute Auto 0.1 X10*3/uL (0.0-0.4); Eosinophils Percent Auto 1.5 % (0-4); Hematocrit 37.3 % (37.0-47.0); Hemoglobin 12.2 g/dl (12.0-16.0); Imm Gran Abs Auto 0.04 X10*3/uL (0.00-0.03); Imm Gran Pct Auto 0.7 % (0.0-0.4); Lymphocytes Absolute Auto 1.9 X10*3/uL (1.2-4.9); Lymphocytes Percent Auto 31.3 % (20-40); Mean Corpuscular HGB Conc 32.7 g/dl (31.0-35.0); Mean Corpuscular Hemoglobin 32.2 pg (27.0-33.0); Mean Corpuscular Volume 98.4 fL (80.0-98.0); Mean Platelet Volume 9.3 fL (9.4-12.3); Monocytes Absolute Auto 0.5 X10*3/uL (0.1-1.2); Monocytes Percent Auto 8.3 % (2-11); Neutrophils Absolute Auto 3.5 x10*3/uL (2.0-8.3); Neutrophils Percent Auto 57.5 % (45-73); Platelet Count 232 X10*3/uL (160-400); Red Blood Count 3.79 X10*6/uL (4.20-5.50); Red Cell Distribution Width 12.6 % (11.0-16.0); White Blood Count 6.1 X10*3/uL (4.8-10.8)
[2023-05-31 13:53] LABS: Estimated Average Glucose 131 mg/dL; Hemoglobin A1c % 6.2 %
[2023-05-31 14:14] LABS: Alanine Aminotransferase 15 U/L (0-31); Albumin Level 3.3 g/dL (3.5-5.0); Alkaline Phosphatase 59 U/L (39-117); Anion Gap 17 (12-20); Aspartate Amino Transferase 22 U/L (5-31); Bilirubin Total 0.5 mg/dL (0.0-1.0); Blood Urea Nitrogen 13 mg/dL (9-16); Calcium 9.1 mg/dL (8.4-10.2); Carbon Dioxide 25 mmol/L (22-29); Chloride 104 mmol/L (96-108); Estimated Glomerular Filt Rate > 60; Glucose Random 134 mg/dL (60-115); Potassium 4.5 mmol/L (3.3-5.1); Sodium 141 mmol/L (135-145); Total Protein 6.8 g/dL (6.5-8.0)
[2023-05-31 14:31] LABS: TSH reflex Free T4 8.64 uIU/mL (0.32-4.0)
[2023-05-31 15:02] LABS: Free T4 (Free Thyroxine) 1.01 ng/dL (0.71-1.85)
== END 2023-05-31 10:03 | disposition home or self-care (01) ==
LOC: HO.HMGCLDS 10:02
PROVIDERS: PCP Internal Medicine; Visit Provider Internal Medicine
DX: E11.9 Type 2 diabetes mellitus without complications (principal); E66.01 Morbid (severe) obesity due to excess calories; F31.12 Bipolar disorder, current episode manic without psychotic features, moderate; I48.92 Unspecified atrial flutter; I11.0 Hypertensive heart disease with heart failure; I50.32 Chronic diastolic (congestive) heart failure; R35.0 Frequency of micturition; R26.2 Difficulty in walking, not elsewhere classified; R53.1 Weakness; F99 Mental disorder, not otherwise specified
CPT/HCPCS: 36415; 80053; 80164; 83036; 84439; 84443; 85025

== ENCOUNTER 2023-06-10 14:02 | Outpatient (AMB) | payer MEDICARE, BC, SELFPAY ==
--- NOTE | 2023-06-10 14:14 | A.OFFVIS_ITS ---
Intake Vital Signs 06/10/23 14:17 Height 5 ft 3 in Weight 240 lb 4.862 oz BMI 42.6 Intake Visit Reasons: 4 week follow up Intake Note: Bianca presents in the office today in 4 weeks follow up. CC: She states she hasn't been able to have stool test done because her was not able to take it to the lab since he can't leave Pt by herself. Patient's reports the Carafate did not work. Grout Machine Tender Required: No Allergies aspirin [ASA] Allergy (Intermediate, Verified 05/31/23 09:32) GI PAIN, upset stomach gluten Allergy (Verified 06/29/23 14:40) Unknown HPI 4 week follow up HPI Details She has post prandial loose stools, this is a problem for her as she has limited mobility and is in a w/c. She has a very remote amado about 25 years but this has been a problem for about 6 months. She recently stopped taking risperidone about the same time, adn her trazodone has been increased recently, no other medication changes. They are questioning dumping syndrome. HEr youngest daughter has trouble with her bowels and she is not sure if this is r/t CIC or diarrhea. Also he pts sister has dumping syndrome. She has a niece who has Crohns (brothers daughter). HEr last colonoscopy was years ago and I find one in [address] Mariano ridley was negative. Assessment & Plan (1) Rectal incontinence: ?Code(s): R15.9 - Full incontinence of feces (2) Diarrhea: ?Code(s): R19.7 - Diarrhea, unspecified ? ? ? Orders: Orders Calprotectin, Feca l Today R15.9 - Full incon tinence of feces, R19.7 - Diarrhea, unspecified ? Pancreatic Elastas e-1 Today R15.9 - Full incon tinence of feces, R19.7 - Diarrhea, unspecified ? C Reactive Protein Today R15.9 - Full incon tinence of feces, R19.7 - Diarrhea, unspecified ? Rast Allergen Today R15.9 - Full incon tinence of feces, R19.7 - Diarrhea, unspecified ? Gliadin Ab Panel Today R15.9 - Full incon tinence of feces, R19.7 - Diarrhea, unspecified ? Transglutaminase I gA Today R15.9 - Full incon tinence of feces, R19.7 - Diarrhea, unspecified ? Transglutaminase A b IgG Today R15.9 - Full incon tinence of feces, R19.7 - Diarrhea, unspecified ? GI Panel Today R15.9 - Full incon tinence of feces, R19.7 - Diarrhea, unspecified ? Ova and Parasite Today R15.9 - Full incon tinence of feces, R19.7 - Diarrhea, unspecified ? Medications: New sucralfate (Carafa te) 2 grams (2 x 1 gra m) PO QNOON 60 tab s 6RF R15.9 - Full incon tinence of feces, R19.7 - Diarrhea, unspecified ? 8 LABS; Laboratory Tests 05/13/23 05/13/23 05/31/23 16:13 Unknown 10:15 WBC 6.1 Hgb 12.2 Hct 37.3 MCV 98.4 H Plt Count 232 D Estimated GFR Hemoglobin A1c % Total Bilirubin AST ALT Alkaline Phosphata se C-Reactive Protein 1.10 H TSH Free T4 Tiss Transglutamin IgG 2.5 Tiss Transglutamin IgA <1.0 Anti-Gliadin IgG A b <1.0 Gliadin (Deamidat) IgA <1.0 05/31/23 05/31/23 10:15 10:15 WBC Hgb Hct MCV Plt Count Estimated GFR > 60 Hemoglobin A1c % 6.2 Total Bilirubin 0.5 AST 22 ALT 15 Alkaline Phosphata se 59 C-Reactive Protein TSH 8.64 H Free T4 1.01 Tiss Transglutamin IgG Tiss Transglutamin IgA Anti-Gliadin IgG A b Gliadin (Deamidat) IgA STOOL SAMPLES NOT OBTAINED RAST=allergy to wheat ( SHOWN IN TTGA_), hazelnut, shrimp, sesame seed TODAY'S VISIT Her diarrhea has not been controlled maximizing Carafate and cholestyramine. Also, she is on multiple cardiac medications and I would not want to interfere with absorption of these agents and she is already tiring of the pill burden. At this point I think will start her on traditional IBS/the medication Viberzi. This will play better with her other medications and simplify the medication regimen. We review the allergy profile and she does have some mild allergies to week Chantell nuts shrimp since sesame see so I advised her to avoid these if possible but I would not certain that these are the largest contributing factors. Of these I think the gluten allergies the most significant and I educate her about possible celiac disease. Return office visit in 5 weeks to evaluate/ titrate the Viberzi. [facility] Medical History Arthritis Bipolar 1 disorder Diabetes mellitus History of cardioversion History of wheezing HTN (hypertension) Hypothyroidism LBBB (left bundle branch block) On anticoagulant therapy On beta carlos at home PAF (paroxysmal atrial fibrillation) Persistent atrial fibrillation PTSD (post-traumatic stress disorder) Vertigo Surgical History History of cardiac radiofrequency ablation History of eye surgery Hx of arthroscopy of right knee Hx of section Hx of cholecystectomy Hx of colonoscopy Family History Father No problems noted. Mother No problems noted. Other Mental health disorder Substance use disorder Social History Household Members: Family Household Members Other:: daughter + Housing: House Do you presently have visiting nurse or other home services: No Alcohol intake: never Patient Tobacco Use Status: Former Tobacco user Quit Date: 1989 Smoked in Last 30 Days: No e-Cigarette/Vaping Use: Never Used Second Hand Smoke Exposure: No Use of substances other than those prescribed or required for medical reasons: No Advance Directives: Yes Advance Directives on File: Yes Advance Directives Date on File: 06/29/23 service: No Current occupational status: employed Sexual orientation: Straight/Heterosexual Cognitive needs: No Hearing needs: No Vision needs: Yes Review of Systems Const Denies fatigue, Denies fever(s), Denies night sweats, Denies poor appetite and Denies weight loss ENT Reports Normal hearing present, Denies dental pain, Denies dysphagia, Denies hearing loss, Denies mouth pain, Denies odynophagia, Denies throat swelling, Denies tongue swelling and Reports other (Dentition adequate) Card Reports no additional complaints Resp Reports no additional complaints GI Denies abdominal pain, Denies melena, Denies bloating, Denies hematochezia, Denies constipation, Reports GI cramping, Denies dysphagia, Denies excessive flatus, Denies early satiety, Denies heartburn, Reports diarrhea, Denies nausea, Denies odynophagia, Denies vomiting and Denies hematemesis Skin/Breast Denies pruritus, Denies lesions, Denies rash and Denies jaundice Neuro Reports Normal hearing present and Denies Abnormal speech present Endo Denies fatigue Aller/Immun Denies throat swelling and Denies tongue swelling Physical Exam Vital Signs: BMI result Body Mass Index 42.6 Const General: cooperative, no acute distress, well developed and well groomed Nutritional Appearance: well nourished and obese morbidly obese Orientation/consciousness: oriented to person, oriented to place and oriented to time Limitations: No language barrier HEENT Head: Yes normocephalic and Yes atraumatic Eyes General: appearance normal, both eyes and all related structures Pupils: Equal, round and reactive pupils present Neck Neck: Yes normal visual inspection and Yes no lymphadenopathy Thyroid: Thyroid normal Resp Effort & Inspection: normal respiratory effort and able to speak in complete sentences Auscultation: clear to auscultation bilaterally Cardio Rate: regular rate Rhythm: regular rhythm Heart sounds: Normal, physiologic split S2 sound present Peripheral pulses: radial pulses present and posterior tibial pulses present GI Inspection: No distended, Yes Abdominal panniculus present and Yes obesity Palpation (GI): Soft to palpation, nontender, no guarding, not rigid and No hepatosplenomegaly present Percussion: Yes normal to percussion Auscultation: normal bowel sounds Rectal Exam - Female: deferred Skin General skin exam: no rashes or lesions noted, turgor normal, skin not dry, no jaundice, No spider nevi and no striae Rashes: no rashes Nails: normal Neuro General: oriented to person, oriented to place and oriented to time Cranial nerves: Yes Equal, round and reactive pupils present and Yes Normal hearing present Speech: No Abnormal speech present Extrem General: Yes normal to inspection, No clubbing, No cyanosis and No edema Psych Appearance: grossly normal and well kempt Mental Status: mental status grossly normal Speech and movement: Normal speech and movement present Affect: normal affect Attitude: cooperative Thought process: Normal thought process present and not confabulating Thought content: Normal thought content present Insight: Fair insight present (Psych) Judgement: Fair judgement present (Psych) Results Reviewed Results Reviewed: Laboratory Tests 05/13/23 05/13/23 05/31/23 16:13 Unknown 10:15 WBC 6.1 Hgb 12.2 Hct 37.3 MCV 98.4 H Plt Count 232 D Estimated GFR Hemoglobin A1c % Total Bilirubin AST ALT Alkaline Phosphatase C-Reactive Protein 1.10 H TSH Free T4 Tiss Transglutamin IgG 2.5 Tiss Transglutamin IgA <1.0 Anti-Gliadin IgG Ab <1.0 Gliadin (Deamidat) IgA <1.0 05/31/23 05/31/23 10:15 10:15 WBC Hgb Hct MCV Plt Count Estimated GFR > 60 Hemoglobin A1c % 6.2 Total Bilirubin 0.5 AST 22 ALT 15 Alkaline Phosphatase 59 C-Reactive Protein TSH 8.64 H Free T4 1.01 Tiss Transglutamin IgG Tiss Transglutamin IgA Anti-Gliadin IgG Ab Gliadin (Deamidat) IgA STOOL SAMPLES NOT OBTAINED RAST=allergy to wheat ( SHOWN IN TT[facility]_), hazelnut, shrimp, sesame seed Assessment & Plan Assessment & Plan (1) Diarrhea: Code(s): R19.7 - Diarrhea, unspecified Plan: Her diarrhea has not been controlled maximizing Carafate and cholestyramine. Also, she is on multiple cardiac medications and I would not want to interfere with absorption of these agents and she is already tiring of the pill burden. At this point I think will start her on traditional IBS/the medication Viberzi. This will play better with her other medications and simplify the medication regimen. We review the allergy profile and she does have some mild allergies to week Chantell nuts shrimp since sesame see so I advised her to avoid these if possible but I would not certain that these are the largest contributing factors. Of these I think the gluten allergies the most significant and I educate her about possible celiac disease. Return office visit in 5 weeks to evaluate/ titrate the Viberzi. (2) Rectal incontinence: Code(s): R15.9 - Full incontinence of feces Medications: New eluxadoline (Viberzi) must administer with a meal/food 75 mg PO BID 60 tabs 3RF K58.0 - Irritable bowel syndrome with diarrhea Discontinued metoprolol succinate ER 50 mg PO DAILY 90 days 90 tabs 3RF I48.0 - Paroxysmal atrial fibrillation sucralfate Discontinued Reason: Change Referral Type 2 grams (2 x 1 gram) PO QNOON 60 tabs 6RF R15.9 - Full incontinence of feces, R19.7 - Diarrhea, unspecified Coding Level of Care Code Est Pt Level 3 (23181) Diagnoses Diarrhea R19.7 Rectal incontinence R15.9
[2023-06-10 14:17] VITALS: BMI 42.6
== END 2023-06-10 14:47 | disposition home or self-care (01) ==
PROVIDERS: PCP Internal Medicine; Visit Provider Nurse Practitioner
DX: R19.7 Diarrhea, unspecified (principal); R15.9 Full incontinence of feces
CPT/HCPCS: 99213

== ENCOUNTER → 2023-06-10 14:02 | Outpatient (BNVA) | payer MEDICARE, BC, SELFPAY | PROVIDERS: PCP Internal Medicine; Visit Provider Nurse Practitioner | DX: R19.7 Diarrhea, unspecified (principal); R15.9 Full incontinence of feces; K58.0 Irritable bowel syndrome with diarrhea; I48.0 Paroxysmal atrial fibrillation | CPT/HCPCS: 99212 ==

== ENCOUNTER 2023-06-29 13:24 | Emergency (ER) | payer MEDICARE, BC, OTHER, SELFPAY ==
--- NOTE | ~2023-06-29 | CT_ITS ---
EXAMINATION: CT CERVICAL SPINE WITHOUT CONTRAST CLINICAL INFORMATION: Status post fall with neck pain. COMPARISON: Cervical spine CT scan dated 05/23/2023. TECHNIQUE: Multiple axial images of the cervical spine were obtained without the administration of intravenous contrast. Coronal and sagittal reformatted images were obtained. This CT examination was performed using dose optimization techniques as appropriate, variously including the following: *Automated exposure control *Adjustment of mA and/or kV according to patient size (this includes techniques or standardized protocols for targeted exams where dose is matched to indication/reason for exam; i.e. extremities or head) *Use of iterative reconstruction technique DLP: 782.01 mGy-cm FINDINGS: There is straightening of the normal cervical lordosis with normal spinal alignment. Mild to moderate multilevel degenerative disc disease is seen from C4-C5 to C6-C7, most pronounced at C5-C6 and C6-C7 with disc space narrowing, marginal osteophyte formation and mild bilateral neural foraminal narrowing. Mild bilateral facet arthropathy is seen. The odontoid process is intact. The spinous and transverse processes are intact. The cervical soft tissues are unremarkable. There is no lymphadenopathy. The thyroid gland is unremarkable. The lung apices are clear. CT/CT cervical spine wo IV con IMPRESSION: 1. Straightening of the normal cervical lordosis may be secondary to positioning and/or muscle spasm. 2. Multilevel degenerative changes without acute abnormality.
--- NOTE | ~2023-06-29 | CT_ITS ---
EXAMINATION: CT HEAD WITHOUT CONTRAST CLINICAL INFORMATION: Status post fall with headache. COMPARISON: Head CT scan dated 05/23/2023. TECHNIQUE: Contiguous axial imaging was performed from the skull base to vertex without intravenous administration of contrast. Coronal and sagittal reformatted images were obtained. This CT examination was performed using dose optimization techniques as appropriate, variously including the following: *Automated exposure control *Adjustment of mA and/or kV according to patient size (this includes techniques or standardized protocols for targeted exams where dose is matched to indication/reason for exam; i.e. extremities or head) *Use of iterative reconstruction technique DLP: 776 mGy-cm FINDINGS: There is mild widening of the cortical sulci and associated ventriculomegaly. The lateral ventricles are symmetrical. The third and fourth ventricles are in their normal midline position. The basilar and prepontine cisterns are unremarkable. Mild periventricular microvascular changes. There is no acute intra or extracerebral abnormality. There is no mass effect or midline shift. Sections through the bony calvarium are unremarkable. The orbits are intact. The paranasal sinuses are clear. Mild mid nasal septal deviation, apex of the right. The mastoid air cells are clear. CT/CT head/brain wo IV con IMPRESSION: No acute intracranial pathology.
[2023-06-29 14:26] VITALS: BP 126/72; PULSE 86; RESP 19; TEMP 37.1; O2SAT 95
--- NOTE | 2023-06-29 14:28 | MHC.CM.ED ---
Received notification from Donna of registration that patient's daughter is requesting a new HCP be completed to name her the HCP. Patient was still in waiting room at this time. T/W explained to Donna, HCP would be discussed with patient but at a later time to make sure patient has the capacity and is lucid enough to complete a HCP. Received notification from Karine Arthur RN that she has been working with patient and , Gamaliel, in the community. Per Karine, patient was hospitalized around the beginning of the Covid pandemic. Patient was having difficulty ambulating at that time but was sent home with [facility]. Due to staffing issues during the pandemic, patient may not have received all the services she needed at that time. Patient has continued to have difficulty ambulating. [facility] was providing PT at home as long as they could. Patient has been transfitioned to outpatient physical therapy. 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 [facility] provided a wheelchair ramp at their home so it would be easier for patient to get to/from appointments. Bautista has told Karine that patient has been getting weaker. Karine has seen patient and Bautista in their home. Bautista is providing most of the care to the patient, but he feels patient may need some short term rehab. Patient has not had an inpatient hospital stay within the past 30 days. Work up is pending at this time. HCP currently on file has Bautista listed as her proxy. Continue to monitor for d/c needs.
[2023-06-29 14:30] VITALS: BP 118/82; BP 126/72; PULSE 62; PULSE 90; RESP 12; TEMP 37.1; O2SAT 96; BMI 44.7
--- NOTE | 2023-06-29 14:39 | ECG_ITS ---
Test Reason : GEN WEAKNESS Blood Pressure : / mmHG Vent. Rate : 090 BPM Atrial Rate : 000 BPM P-R Int : 000 ms QRS Dur : 126 ms QT Int : 396 ms P-R-T Axes : 000 -06 136 degrees QTc Int : 484 ms Atrial fibrillation Non-specific intra-ventricular conduction block Possible Anterolateral infarct , age undetermined Abnormal ECG When compared with ECG of 23-MAY-2023 18:47, No significant change was found Referred By: Mary Jane Cortés Electronically Signed By:FERDINAND MELÉNDEZ
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
[2023-06-29 16:10] LABS: Appearance Urine Turbid; Color Urine Yellow; Glucose Urine UA Negative (Negative); Leukocyte Esterase Urine Moderate (2+) (Negative); Nitrite Urine Negative (Negative); PH 6.5 (5.0-9.0); UMIC TRIGGER UACC YES; Urine Blood Large (3+) (Negative); Urine Ketones Trace mg/dL (Negative); Urine Protein 100 (2+) mg/dL (Neg-Trace)
[2023-06-29 16:12] LABS: MANUAL DIFF FLAG NO
[2023-06-29 16:13] LABS: Basophils Percent Auto 0.4 % (0-2); Eosinophils Absolute Auto 0.1 X10*3/uL (0.0-0.4); Eosinophils Percent Auto 1.6 % (0-4); Hematocrit 36.3 % (37.0-47.0); Imm Gran Abs Auto 0.05 X10*3/uL (0.00-0.03); Imm Gran Pct Auto 0.7 % (0.0-0.4); Lymphocytes Absolute Auto 3.3 X10*3/uL (1.2-4.9); Lymphocytes Percent Auto 46.8 % (20-40); Mean Corpuscular HGB Conc 33.1 g/dl (31.0-35.0); Mean Corpuscular Hemoglobin 31.5 pg (27.0-33.0); Mean Corpuscular Volume 95.3 fL (80.0-98.0); Mean Platelet Volume 9.4 fL (9.4-12.3); Monocytes Absolute Auto 0.4 X10*3/uL (0.1-1.2); Monocytes Percent Auto 6.2 % (2-11); Neutrophils Absolute Auto 3.1 x10*3/uL (2.0-8.3); Neutrophils Percent Auto 44.3 % (45-73); Platelet Count 152 X10*3/uL (160-400); Red Blood Count 3.81 X10*6/uL (4.20-5.50); Red Cell Distribution Width 12.4 % (11.0-16.0); White Blood Count 7.1 X10*3/uL (4.8-10.8)
[2023-06-29 16:22] LABS: Bacteria Urine 4+ (None Seen); Hyaline Casts Urine 0-2 /LPF (0-2); RBC Urine >20 /HPF (0-2); UACC Culture Trigger YES; WBC Urine >50 /HPF (0-5)
[2023-06-29 16:29] VITALS: BP 128/66; PULSE 88; RESP 13; O2SAT 96
[2023-06-29 16:46] LABS: Alanine Aminotransferase 15 U/L (0-31); Albumin Level 3.1 g/dL (3.5-5.0); Alkaline Phosphatase 58 U/L (39-117); Anion Gap 14 (12-20); Aspartate Amino Transferase 26 U/L (5-31); Bilirubin Total 0.3 mg/dL (0.0-1.0); Blood Urea Nitrogen 11 mg/dL (9-16); Carbon Dioxide 29 mmol/L (22-29); Chloride 104 mmol/L (96-108); Creatinine Clr Calc Pharmacy 100.6; Estimated Glomerular Filt Rate > 60; Glucose Random 97 mg/dL (60-115); Potassium 4.5 mmol/L (3.3-5.1); Sodium 142 mmol/L (135-145); Total Protein 6.3 g/dL (6.5-8.0)
--- NOTE | 2023-06-29 17:18 | PC.NURSE ---
Patient incontinent of urine, emily care provided for patient and Pure wick put into place. Open areas noted to bilateral gluteals.
--- NOTE | 2023-06-29 20:07 | PHA.MEDREC ---
Pharmacy Consult ? Medication Reconciliation Pharmacy has completed the medication reconciliation. Patient's confirmed medications. Reported amiodarone 100 mg even though there is no claim history. He also reported that patient is not taking sucralafate, and that it did not work. Family aware Vibrezi needs to be brought in for patient. Mishel Romero, PharmD
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
[2023-06-29 21:30] VITALS: BP 103/72; PULSE 89; RESP 20; TEMP 36.7; O2SAT 96
[2023-06-29] MEDS: Metoprolol Succinate ER 50 MG TAB.ER.24H PO (21:46)
[2023-06-29] MEDS: traZODone HCL 25 MG HALFTAB 225 MG PO (21:46)
[2023-06-29] MEDS: Divalproex Sodium 500 MG TABLET.DR PO (21:46)
[2023-06-29] MEDS: Divalproex Sodium 250 MG TABLET.DR PO (21:46)
[2023-06-29] MEDS: Rivaroxaban 20 MG TABLET PO (21:46)
[2023-06-30 06:00] VITALS: BP 106/65; PULSE 89; RESP 20; TEMP 36.6; O2SAT 94
[2023-06-30] MEDS: Acetaminophen 325 MG TABLET 650 MG PO (06:35)
[2023-06-30] MEDS: Levothyroxine Sodium 150 MCG TABLET PO (06:35)
--- NOTE | 2023-06-30 06:35 | MHC.EDTECH ---
This tech assume care at 0300, Vitals where taken and assisted nurse with complete bed bath and change.
[2023-06-30] MEDS: Amiodarone HCL 200 MG TABLET 100 MG PO (08:53)
[2023-06-30] MEDS: Nystatin Powder 15 GM BOTTLE 1 APPL TOPICAL (08:53)
[2023-06-30] MEDS: Furosemide 20 MG TABLET PO (08:53)
[2023-06-30] MEDS: Divalproex Sodium 500 MG TABLET.DR PO ×2 (08:54→20:51)
--- NOTE | 2023-06-30 13:32 | MHC.CM.ED ---
Review of acute rehab referrals : no offers d/t lack of medical complexity. Review of EMR: no clinical findings for admission. Broad referrals made to area SNF's with private pay notification as pt does not have a MCR qualifying stay. Updates given to pt - instructed interested facilities to contact pt's spouse for all needed financial information. Will discuss offers w/pt if/when they occur. ED CM to follow
[2023-06-30 14:00] VITALS: BP 106/58; PULSE 83; RESP 20; TEMP 37.2; O2SAT 96
--- NOTE | 2023-06-30 15:51 | MHC.CM.ED ---
CM received return telephone call from [facility] crating and moving estimator, Kelsey. She visited with patient today. Will continue investigation with family (daughters) and with RESIDENT BUYER's from [facility]. CM will continue to follow for discharge needs.
[2023-06-30 20:30] VITALS: BP 121/81; PULSE 90; RESP 16; TEMP 36.2; O2SAT 95
[2023-06-30] MEDS: Divalproex Sodium 250 MG TABLET.DR PO (20:51)
[2023-06-30] MEDS: traZODone HCL 50 MG TABLET 225 MG PO (20:51)
[2023-06-30] MEDS: Metoprolol Succinate ER 50 MG TAB.ER.24H PO (20:51)
[2023-06-30] MEDS: Rivaroxaban 20 MG TABLET PO (20:51)
[2023-07-01] MEDS: Levothyroxine Sodium 150 MCG TABLET PO (05:58)
[2023-07-01 06:00] VITALS: BP 102/62; PULSE 94; RESP 18; TEMP 36; O2SAT 94
[2023-07-01 07:26] VITALS: BP 105/66; PULSE 82; RESP 18; TEMP 35.8; O2SAT 95
[2023-07-01] MEDS: Nystatin Powder 15 GM BOTTLE 1 APPL TOPICAL ×2 (09:00→20:57)
[2023-07-01] MEDS: Amiodarone HCL 200 MG TABLET 100 MG PO (09:01)
[2023-07-01] MEDS: Divalproex Sodium 500 MG TABLET.DR PO ×2 (09:01→20:54)
[2023-07-01] MEDS: Furosemide 20 MG TABLET PO (09:01)
--- NOTE | 2023-07-01 10:37 | HE.PHANOTE ---
Re: pt own Bjdanesalas Spoke to Eliana in ED overflow 07/01/23 @0845 to let her know we sent dose of pt own med this morning and there are only 3 tablets left (07/01 @1999, 07/02 @0800, and 07/02 @1999) and she'll have last dose administered 07/02. Requested she get pt to bring more from home so she doesn't miss any doses and she confirmed she will speak to patient about this.
[2023-07-01 12:42] VITALS: BP 113/84; PULSE 113; RESP 19; TEMP 36.7; O2SAT 94
--- NOTE | 2023-07-01 13:02 | MHC.CM.ED ---
Addendum entered by Krista Gaffney 07/01/23 15:19: [facility] spoke with Bautista and is able to offer a bed. Patient can leave ER tomorrow 07/02 at 10am. [facility] WALLACE booked. [facility] with chart. Patient, Cherelle RN and Patt MASON aware. Spoke with Fernanda via telephone at [phone]. Fernanda aware of d/c plan. Attempted to speak to Gamaliel via telephone at [phone]. Left message with discharge plan. Original Note: Patient remains in ER overflow. [facility] [place] [place] [facility] are still following. Clinical updates have been sent via [employer]. Facilities have been asked to reach out to patient's , Bautista in regards to finances. Patient aware. Fernanda, patient's daughter/HCP, given update at [facility]'s request. Continue to monitor for d/c needs.
[2023-07-01 16:19] VITALS: BP 95/70; PULSE 100; RESP 18; TEMP 37.1; O2SAT 95
[2023-07-01] MEDS: Rivaroxaban 20 MG TABLET PO (20:54)
[2023-07-01] MEDS: traZODone HCL 50 MG TABLET 225 MG PO (20:54)
[2023-07-01] MEDS: Divalproex Sodium 250 MG TABLET.DR PO (20:54)
[2023-07-01] MEDS: Metoprolol Succinate ER 50 MG TAB.ER.24H PO (20:54)
[2023-07-02 06:00] VITALS: BP 148/96; PULSE 106; RESP 20; TEMP 36.1; O2SAT 92
[2023-07-02] MEDS: Levothyroxine Sodium 150 MCG TABLET PO (06:06)
[2023-07-02 08:09] VITALS: BP 144/98; PULSE 83; RESP 16; TEMP 36.8; O2SAT 96
[2023-07-02] MEDS: Amiodarone HCL 200 MG TABLET 100 MG PO (09:02)
[2023-07-02] MEDS: Furosemide 20 MG TABLET PO (09:02)
[2023-07-02] MEDS: Nystatin Powder 15 GM BOTTLE 1 APPL TOPICAL (09:03)
--- NOTE | 2023-07-02 13:08 | MHC.CM.ED ---
Pt d/c'd to [facility] via [facility]: family to meet pt at facility.
== END 2023-07-02 10:00 | disposition skilled nursing facility (03) ==
PROVIDERS: Emergency Provider Student in an Organized Health Care Education/Training Program; PCP Internal Medicine
DX: N39.0 Urinary tract infection, site not specified (principal); B96.1 Klebsiella pneumoniae [K. pneumoniae] as the cause of diseases classified elsewhere; B96.4 Proteus (mirabilis) (morganii) as the cause of diseases classified elsewhere; R53.81 Other malaise; R53.1 Weakness; E11.9 Type 2 diabetes mellitus without complications; I10 Essential (primary) hypertension; I48.0 Paroxysmal atrial fibrillation; E66.9 Obesity, unspecified; Z68.41 Body mass index [BMI] 40.0-44.9, adult; Z87.891 Personal history of nicotine dependence; Z79.899 Other long term (current) drug therapy; Z79.01 Long term (current) use of anticoagulants
CPT/HCPCS: 36415; 70450; 72125; 80053; 81001; 85025; 87086; 87088; 87186; 93005; 97162; 99285

== ENCOUNTER 2023-07-05 06:38 | Outpatient (REF) | payer MEDICARE, BC, OTHER, SELFPAY ==
[2023-07-05 06:41] LABS: MANUAL DIFF FLAG NO
[2023-07-05 07:29] LABS: Basophils Percent Auto 0.3 % (0-2); Eosinophils Percent Auto 0.3 % (0-4); Hematocrit 37.6 % (37.0-47.0); Hemoglobin 12.3 g/dl (12.0-16.0); Imm Gran Abs Auto 0.06 X10*3/uL (0.00-0.03); Imm Gran Pct Auto 0.7 % (0.0-0.4); Lymphocytes Absolute Auto 2.7 X10*3/uL (1.2-4.9); Lymphocytes Percent Auto 30.5 % (20-40); Mean Corpuscular HGB Conc 32.7 g/dl (31.0-35.0); Mean Corpuscular Hemoglobin 31.8 pg (27.0-33.0); Mean Corpuscular Volume 97.2 fL (80.0-98.0); Mean Platelet Volume 9.8 fL (9.4-12.3); Monocytes Absolute Auto 0.8 X10*3/uL (0.1-1.2); Neutrophils Absolute Auto 5.2 x10*3/uL (2.0-8.3); Neutrophils Percent Auto 59.2 % (45-73); Platelet Count 224 X10*3/uL (160-400); Red Blood Count 3.87 X10*6/uL (4.20-5.50); Red Cell Distribution Width 12.6 % (11.0-16.0); White Blood Count 8.7 X10*3/uL (4.8-10.8)
[2023-07-05 07:58] LABS: Alanine Aminotransferase 14 U/L (0-31); Albumin Level 3.2 g/dL (3.5-5.0); Alkaline Phosphatase 56 U/L (39-117); Anion Gap 15 (12-20); Aspartate Amino Transferase 22 U/L (5-31); Bilirubin Total 0.5 mg/dL (0.0-1.0); Blood Urea Nitrogen 16 mg/dL (9-16); Calcium 8.7 mg/dL (8.4-10.2); Carbon Dioxide 27 mmol/L (22-29); Chloride 102 mmol/L (96-108); Estimated Glomerular Filt Rate > 60; Glucose Random 154 mg/dL (60-115); Potassium 4.1 mmol/L (3.3-5.1); Sodium 140 mmol/L (135-145); Total Protein 6.5 g/dL (6.5-8.0)
== END 2023-07-05 06:39 | disposition home or self-care (01) ==
LOC: HO.MMNH1L 06:38
PROVIDERS: Visit Provider Family Medicine
DX: I10 Essential (primary) hypertension (principal); F31.9 Bipolar disorder, unspecified
CPT/HCPCS: 36415; 80053; 85025

== ENCOUNTER 2023-07-11 05:56 | Outpatient (REF) | payer MEDICARE, BC, OTHER, SELFPAY ==
[2023-07-11 05:51] LABS: MANUAL DIFF FLAG NO
[2023-07-11 06:52] LABS: Basophils Absolute Auto 0.1 X10*3/uL (0.0-0.2); Basophils Percent Auto 0.7 % (0-2); Eosinophils Absolute Auto 0.3 X10*3/uL (0.0-0.4); Hematocrit 40.7 % (37.0-47.0); Hemoglobin 13.2 g/dl (12.0-16.0); Imm Gran Abs Auto 0.02 X10*3/uL (0.00-0.03); Imm Gran Pct Auto 0.3 % (0.0-0.4); Lymphocytes Absolute Auto 2.6 X10*3/uL (1.2-4.9); Lymphocytes Percent Auto 38.2 % (20-40); Mean Corpuscular HGB Conc 32.4 g/dl (31.0-35.0); Mean Corpuscular Volume 98.8 fL (80.0-98.0); Mean Platelet Volume 9.4 fL (9.4-12.3); Monocytes Absolute Auto 0.6 X10*3/uL (0.1-1.2); Monocytes Percent Auto 8.5 % (2-11); Neutrophils Absolute Auto 3.3 x10*3/uL (2.0-8.3); Neutrophils Percent Auto 47.3 % (45-73); Platelet Count 244 X10*3/uL (160-400); Red Blood Count 4.12 X10*6/uL (4.20-5.50); Red Cell Distribution Width 12.6 % (11.0-16.0); White Blood Count 6.9 X10*3/uL (4.8-10.8)
[2023-07-11 06:56] LABS: Anion Gap 16 (12-20); Blood Urea Nitrogen 9 mg/dL (9-16); Calcium 8.8 mg/dL (8.4-10.2); Carbon Dioxide 27 mmol/L (22-29); Chloride 102 mmol/L (96-108); Estimated Glomerular Filt Rate > 60; Glucose Random 120 mg/dL (60-115); Potassium 4.1 mmol/L (3.3-5.1); Sodium 141 mmol/L (135-145)
== END 2023-07-11 05:57 | disposition home or self-care (01) ==
LOC: HO.MMNH1L 05:56
PROVIDERS: Visit Provider Family Medicine
DX: I10 Essential (primary) hypertension (principal); F31.9 Bipolar disorder, unspecified
CPT/HCPCS: 36415; 80048; 85025

== ENCOUNTER 2023-07-18 07:24 | Outpatient (REF) | payer MEDICARE, BC, OTHER, SELFPAY ==
[2023-07-18 06:10] LABS: MANUAL DIFF FLAG NO
[2023-07-18 06:47] LABS: Basophils Percent Auto 0.3 % (0-2); Eosinophils Absolute Auto 0.2 X10*3/uL (0.0-0.4); Eosinophils Percent Auto 3.4 % (0-4); Hematocrit 36.5 % (37.0-47.0); Hemoglobin 11.9 g/dl (12.0-16.0); Imm Gran Abs Auto 0.02 X10*3/uL (0.00-0.03); Imm Gran Pct Auto 0.3 % (0.0-0.4); Lymphocytes Absolute Auto 3.2 X10*3/uL (1.2-4.9); Lymphocytes Percent Auto 51.4 % (20-40); Mean Corpuscular HGB Conc 32.6 g/dl (31.0-35.0); Mean Corpuscular Hemoglobin 31.4 pg (27.0-33.0); Mean Corpuscular Volume 96.3 fL (80.0-98.0); Mean Platelet Volume 9.4 fL (9.4-12.3); Monocytes Absolute Auto 0.5 X10*3/uL (0.1-1.2); Monocytes Percent Auto 7.3 % (2-11); Neutrophils Absolute Auto 2.3 x10*3/uL (2.0-8.3); Neutrophils Percent Auto 37.3 % (45-73); Platelet Count 155 X10*3/uL (160-400); Red Blood Count 3.79 X10*6/uL (4.20-5.50); Red Cell Distribution Width 12.5 % (11.0-16.0); White Blood Count 6.2 X10*3/uL (4.8-10.8)
[2023-07-18 07:05] LABS: Anion Gap 15 (12-20); Blood Urea Nitrogen 6 mg/dL (9-16); Calcium 8.4 mg/dL (8.4-10.2); Carbon Dioxide 28 mmol/L (22-29); Chloride 103 mmol/L (96-108); Estimated Glomerular Filt Rate > 60; Glucose Random 107 mg/dL (60-115); Potassium 4.3 mmol/L (3.3-5.1); Sodium 142 mmol/L (135-145)
== END 2023-07-18 07:25 | disposition home or self-care (01) ==
LOC: HO.MMNH1L 07:24
PROVIDERS: Visit Provider Family Medicine
DX: I10 Essential (primary) hypertension (principal); F31.9 Bipolar disorder, unspecified
CPT/HCPCS: 36415; 80048; 85025

== ENCOUNTER 2023-07-25 06:11 | Outpatient (REF) | payer MEDICARE, BC, OTHER, SELFPAY ==
[2023-07-25 05:56] LABS: MANUAL DIFF FLAG NO
[2023-07-25 06:40] LABS: Anion Gap 19 (12-20); Blood Urea Nitrogen 6 mg/dL (9-16); Carbon Dioxide 25 mmol/L (22-29); Chloride 101 mmol/L (96-108); Estimated Glomerular Filt Rate > 60; Glucose Random 107 mg/dL (60-115); Potassium 3.9 mmol/L (3.3-5.1); Sodium 141 mmol/L (135-145)
[2023-07-25 06:53] LABS: Basophils Percent Auto 0.4 % (0-2); Eosinophils Absolute Auto 0.2 X10*3/uL (0.0-0.4); Eosinophils Percent Auto 3.2 % (0-4); Hematocrit 33.2 % (37.0-47.0); Hemoglobin 10.8 g/dl (12.0-16.0); Imm Gran Abs Auto 0.02 X10*3/uL (0.00-0.03); Imm Gran Pct Auto 0.3 % (0.0-0.4); Lymphocytes Absolute Auto 3.5 X10*3/uL (1.2-4.9); Lymphocytes Percent Auto 50.5 % (20-40); Mean Corpuscular HGB Conc 32.5 g/dl (31.0-35.0); Mean Corpuscular Hemoglobin 31.7 pg (27.0-33.0); Mean Corpuscular Volume 97.4 fL (80.0-98.0); Monocytes Absolute Auto 0.5 X10*3/uL (0.1-1.2); Monocytes Percent Auto 6.9 % (2-11); Neutrophils Absolute Auto 2.7 x10*3/uL (2.0-8.3); Neutrophils Percent Auto 38.7 % (45-73); Platelet Count 165 X10*3/uL (160-400); Red Blood Count 3.41 X10*6/uL (4.20-5.50); Red Cell Distribution Width 12.8 % (11.0-16.0)
== END 2023-07-25 06:12 | disposition home or self-care (01) ==
LOC: HO.MMNH1L 06:11
PROVIDERS: Visit Provider Family Medicine
DX: I10 Essential (primary) hypertension (principal); F31.9 Bipolar disorder, unspecified
CPT/HCPCS: 36415; 80048; 85025

== ENCOUNTER 2023-08-01 06:26 | Outpatient (REF) | payer MEDICARE, BC, OTHER, SELFPAY ==
[2023-08-01 06:11] LABS: MANUAL DIFF FLAG NO
[2023-08-01 07:05] LABS: Basophils Percent Auto 0.5 % (0-2); Eosinophils Absolute Auto 0.2 X10*3/uL (0.0-0.4); Eosinophils Percent Auto 2.6 % (0-4); Hemoglobin 11.4 g/dl (12.0-16.0); Imm Gran Abs Auto 0.02 X10*3/uL (0.00-0.03); Imm Gran Pct Auto 0.3 % (0.0-0.4); Lymphocytes Absolute Auto 3.1 X10*3/uL (1.2-4.9); Lymphocytes Percent Auto 53.1 % (20-40); Mean Corpuscular HGB Conc 32.6 g/dl (31.0-35.0); Mean Corpuscular Hemoglobin 31.1 pg (27.0-33.0); Mean Corpuscular Volume 95.6 fL (80.0-98.0); Mean Platelet Volume 9.5 fL (9.4-12.3); Monocytes Absolute Auto 0.4 X10*3/uL (0.1-1.2); Monocytes Percent Auto 7.7 % (2-11); Neutrophils Absolute Auto 2.1 x10*3/uL (2.0-8.3); Neutrophils Percent Auto 35.8 % (45-73); Platelet Count 179 X10*3/uL (160-400); Red Blood Count 3.66 X10*6/uL (4.20-5.50); Red Cell Distribution Width 12.6 % (11.0-16.0); White Blood Count 5.7 X10*3/uL (4.8-10.8)
[2023-08-01 07:07] LABS: Anion Gap 15 (12-20); Blood Urea Nitrogen 8 mg/dL (9-16); Calcium 8.4 mg/dL (8.4-10.2); Carbon Dioxide 27 mmol/L (22-29); Chloride 103 mmol/L (96-108); Estimated Glomerular Filt Rate > 60; Glucose Random 87 mg/dL (60-115); Sodium 141 mmol/L (135-145)
== END 2023-08-01 06:27 | disposition home or self-care (01) ==
LOC: HO.MMNH1L 06:26
PROVIDERS: Visit Provider Family Medicine
DX: I10 Essential (primary) hypertension (principal); F31.9 Bipolar disorder, unspecified
CPT/HCPCS: 36415; 80048; 85025

== ENCOUNTER 2023-08-08 06:18 | Outpatient (REF) | payer MEDICARE, BC, SELFPAY ==
[2023-08-08 06:01] LABS: MANUAL DIFF FLAG NO
[2023-08-08 06:24] LABS: Basophils Percent Auto 0.3 % (0-2); Eosinophils Absolute Auto 0.2 X10*3/uL (0.0-0.4); Eosinophils Percent Auto 2.3 % (0-4); Hematocrit 33.7 % (37.0-47.0); Imm Gran Abs Auto 0.02 X10*3/uL (0.00-0.03); Imm Gran Pct Auto 0.3 % (0.0-0.4); Lymphocytes Absolute Auto 2.9 X10*3/uL (1.2-4.9); Lymphocytes Percent Auto 44.5 % (20-40); Mean Corpuscular HGB Conc 32.6 g/dl (31.0-35.0); Mean Corpuscular Hemoglobin 31.5 pg (27.0-33.0); Mean Corpuscular Volume 96.6 fL (80.0-98.0); Monocytes Absolute Auto 0.6 X10*3/uL (0.1-1.2); Monocytes Percent Auto 8.8 % (2-11); Neutrophils Absolute Auto 2.8 x10*3/uL (2.0-8.3); Neutrophils Percent Auto 43.8 % (45-73); Platelet Count 186 X10*3/uL (160-400); Red Blood Count 3.49 X10*6/uL (4.20-5.50); Red Cell Distribution Width 12.6 % (11.0-16.0); White Blood Count 6.5 X10*3/uL (4.8-10.8)
[2023-08-08 06:48] LABS: Anion Gap 15 (12-20); Blood Urea Nitrogen 6 mg/dL (9-16); Calcium 8.2 mg/dL (8.4-10.2); Carbon Dioxide 28 mmol/L (22-29); Chloride 101 mmol/L (96-108); Estimated Glomerular Filt Rate > 60; Glucose Random 105 mg/dL (60-115); Potassium 3.9 mmol/L (3.3-5.1); Sodium 140 mmol/L (135-145)
== END 2023-08-08 06:19 | disposition home or self-care (01) ==
LOC: HO.MMNH1L 06:18
PROVIDERS: Visit Provider Family Medicine
DX: I10 Essential (primary) hypertension (principal); F31.9 Bipolar disorder, unspecified
CPT/HCPCS: 36415; 80048; 85025

== ENCOUNTER 2023-08-19 11:38 | Outpatient (AMB) | payer MEDICARE, BC, SELFPAY ==
--- NOTE | 2023-08-19 12:01 | A.OFFVIS_ITS ---
Intake Vital Signs 08/19/23 12:14 Height 5 ft 3 in BMI Reason not done Patient refused/unable BP 161/105 H Blood Pressure Location Rt brachial Position Sitting Comment Patient wheelchair bound Intake Visit Reasons: 6 week follow up Intake Note: Bianca presents in the office today in 6 weeks follow up diarrhea. CC:Patient's reports they have tried following an organic, gluten free diet and she does some days good and other days continues to have diarrhea. He also reports that while Pt was taking the Viberzi BID and she was constipated for 5 days. Once the reduced the dose to once a day she was able to have a BM's. He states they still trying to figure out what is triggering the PT's symptoms but still don't know what it its. 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 Required: No Accompanied by: Self / Same As Patient Allergies aspirin [ASA] Allergy (Intermediate, Verified 09/01/23 14:30) GI PAIN, upset stomach hazelnut Allergy (Unknown, Verified 09/01/23 14:30) Unknown shellfish derived Allergy (Unknown, Verified 09/01/23 14:30) Unknown gluten Allergy (Verified 09/01/23 14:30) Unknown sesame seeds Allergy (Unknown, Uncoded 08/19/23 12:12) Unknown Medication List - Last Reconciled 08/19/23 by ANOOP Montague amiodarone 100 mg PO DAILY divalproex 250 mg PO BEDTIME divalproex 500 mg PO BID eluxadoline (Viberzi) 75 mg PO BIDWM furosemide (Lasix) 20 mg PO DAILY levothyroxine 150 mcg PO DAILY 90 days metoprolol succinate ER 50 mg PO BEDTIME rivaroxaban (Xarelto) 20 mg PO QPM trazodone 225 mg PO BEDTIME HPI 6 week follow up HPI Details Assessment & Plan (1) Diarrhea: Code(s): R19.7 - Diarrhea, unspecified Plan: Her diarrhea has not been controlled maximizing Carafate and cholestyramine. Also, she is on multiple cardiac medications and I would not want to interfere with absorption of these agents and she is already tiring of the pill burden. At this point I think will start her on traditional IBS/the medication Viberzi. This will play better with her other medications and simplify the medication regimen. We review the allergy profile and she does have some mild allergies to week Chantell nuts shrimp since sesame see so I advised her to avoid these if possible but I would not certain that these are the largest contributing factors. Of these I think the gluten allergies the most significant and I educate her about possible celiac disease. Return office visit in 5 weeks to evaluate/ titrate the Viberzi. (2) Rectal incontinence: Code(s): R15.9 - Full incontinence of feces Medications: New eluxadoline (Viber zi) must admini ster with a meal/f ood 75 mg PO BID 60 ta bs 3RF K58.0 - Irritable bowel syndrome wit h diarrhea Discontinued metoprolol succina te ER 50 mg PO DAILY 90 days 90 tabs 3RF I48.0 - Paroxysmal atrial fibrillati on sucralfate Disc ontinued Reason: Change Referral Ty pe 2 grams (2 x 1 gra m) PO QNOON 60 tab s 6RF R15.9 - Full incon tinence of feces, R19.7 - Diarrhea, unspecified TODAY'S VISIT She was in rehab for 40 days for deconditioning and at attempt to walk better - but had troubles with getting the right diet re: her Celiac. She had a variable response to the Viberzi at 75 mg if they gave it to her twice a day sometime she would become constipated and then her would withhold 1 dose and she would move her bowels. However if they only gave her 1 today consistently this was not enough to keep the diarrhea at [place]. I think will try to split the difference and upper to the 100 mg dose and start with once a day dosing. We will continue to tied titrate her treatment to get it just right for optimal bowel function and to accommodate her limited mobility. Return office visit in 3 weeks [facility] Medical History Hip pain, left Paroxysmal atrial fibrillation Morbid obesity due to excess calories Non-insulin dependent type 2 diabetes mellitus Pre-op evaluation Medication side effect Muscle stiffness Hospital discharge follow-up Weakness Leg edema SOB (shortness of breath) On anticoagulant therapy On beta carlos at home Bipolar 1 disorder Vertigo PTSD (post-traumatic stress disorder) History of cardioversion Arthritis Hypothyroidism History of wheezing Persistent atrial fibrillation Diabetes mellitus HTN (hypertension) LBBB (left bundle branch block) PAF (paroxysmal atrial fibrillation) Surgical History History of cardiac radiofrequency ablation History of eye surgery Hx of section Hx of colonoscopy Hx of cholecystectomy Hx of arthroscopy of right knee Family History Father No problems noted. Mother No problems noted. Other Mental health disorder Substance use disorder Social History Household Members: Family Household Members Other:: daughter + Housing: House Do you presently have visiting nurse or other home services: No Alcohol intake: former Comment: patient fll asleep Patient Tobacco Use Status: Former Tobacco user Quit Date: 1989 e-Cigarette/Vaping Use: Never Used Second Hand Smoke Exposure: No Advance Directives: Yes Advance Directives on File: Yes Advance Directives Date on File: 06/29/23 service: No Current occupational status: employed Sexual orientation: Straight/Heterosexual Cognitive needs: No Hearing needs: No Vision needs: Yes Review of Systems Const Denies fatigue, Denies fever(s), Denies night sweats, Denies poor appetite and Denies weight loss ENT Reports Normal hearing present, Denies dental pain, Denies dysphagia, Denies hearing loss, Denies mouth pain, Denies odynophagia, Denies throat swelling, Denies tongue swelling and Reports other (Dentition adequate) Card Reports no additional complaints Resp Reports no additional complaints GI Denies abdominal pain, Denies melena, Denies bloating, Denies hematochezia, Denies constipation, Denies GI cramping, Denies dysphagia, Denies excessive flatus, Denies early satiety, Reports heartburn, Reports diarrhea, Denies nausea, Denies odynophagia, Denies vomiting and Denies hematemesis Musc Reports abnormal gait and Reports muscle weakness Skin/Breast Denies pruritus, Denies lesions, Denies rash and Denies jaundice Neuro Reports Normal hearing present, Denies Abnormal speech present and Reports abnormal gait Endo Denies fatigue Aller/Immun Denies throat swelling and Denies tongue swelling Physical Exam Vital Signs: Last Vital Signs BP 161/105 H 08/19/23 12:14 Const General: cooperative, no acute distress, well developed and well groomed Nutritional Appearance: well nourished and obese morbidly obese Orientation/consciousness: oriented to person, oriented to place and oriented to time Limitations: No language barrier and wheelchair HEENT Head: Yes normocephalic and Yes atraumatic Eyes General: appearance normal, both eyes and all related structures Pupils: Equal, round and reactive pupils present Neck Neck: Yes normal visual inspection and Yes no lymphadenopathy Thyroid: Thyroid normal Resp Effort & Inspection: normal respiratory effort and able to speak in complete sentences Auscultation: clear to auscultation bilaterally Cardio Rate: regular rate Rhythm: regular rhythm Heart sounds: Normal, physiologic split S2 sound present Peripheral pulses: radial pulses present and posterior tibial pulses present GI Inspection: No distended, Yes Abdominal panniculus present and Yes obesity Palpation (GI): Soft to palpation, nontender, no guarding, not rigid and No hepatosplenomegaly present Percussion: Yes normal to percussion Auscultation: normal bowel sounds Rectal Exam - Female: deferred Skin General skin exam: no rashes or lesions noted, turgor normal, skin not dry, no jaundice, No spider nevi and no striae Rashes: no rashes Nails: normal Neuro General: oriented to person, oriented to place and oriented to time Cranial nerves: Yes Equal, round and reactive pupils present and Yes Normal hearing present Speech: No Abnormal speech present Extrem General: Yes normal to inspection, No clubbing, No cyanosis and No edema Psych Appearance: grossly normal and well kempt Mental Status: mental status grossly normal Speech and movement: Normal speech and movement present Affect: normal affect Attitude: cooperative Thought process: Normal thought process present and not confabulating Thought content: Normal thought content present Insight: Limited insight present (Psych) Judgement: Limited judgement present (Psych) Assessment & Plan Assessment & Plan (1) Irritable bowel syndrome with diarrhea: Code(s): K58.0 - Irritable bowel syndrome with diarrhea Plan: She was in rehab for 40 days for deconditioning and at attempt to walk better - but had troubles with getting the right diet re: her Celiac. She had a variable response to the Viberzi at 75 mg if they gave it to her twice a day sometime she would become constipated and then her would withhold 1 dose and she would move her bowels. However if they only gave her 1 today consistently this was not enough to keep the diarrhea at [place]. I think will try to split the difference and upper to the 100 mg dose and start with once a day dosing. We will continue to tied titrate her treatment to get it just right for optimal bowel function and to accommodate her limited mobility. Return office visit in 3 weeks (2) Rectal incontinence: Code(s): R15.9 - Full incontinence of feces (3) Celiac disease: Code(s): K90.0 - Celiac disease Coding Level of Care Code Est Pt Level 3 (25679) Diagnoses Irritable bowel syndrome with diarrhea K58.0 Rectal incontinence R15.9 Celiac disease K90.0
[2023-08-19 12:14] VITALS: BP 161/105
== END 2023-08-19 12:46 | disposition home or self-care (01) ==
PROVIDERS: PCP Internal Medicine; Visit Provider Nurse Practitioner
DX: K58.0 Irritable bowel syndrome with diarrhea (principal); R15.9 Full incontinence of feces; K90.0 Celiac disease
CPT/HCPCS: 99213

== ENCOUNTER → 2023-08-19 11:38 | Outpatient (BNVA) | payer MEDICARE, BC, SELFPAY | PROVIDERS: PCP Internal Medicine; Visit Provider Nurse Practitioner | DX: K90.0 Celiac disease (principal); R15.9 Full incontinence of feces; K58.0 Irritable bowel syndrome with diarrhea | CPT/HCPCS: 99212 ==

== ENCOUNTER 2023-08-30 11:48 | Outpatient (AMB) | payer MEDICARE, BC, SELFPAY ==
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
[2023-08-30 12:17] VITALS: BP 142/72; PULSE 93; O2SAT 97
== END 2023-08-30 12:36 | disposition home or self-care (01) ==
PROVIDERS: PCP Internal Medicine; Visit Provider Internal Medicine
DX: F43.10 Post-traumatic stress disorder, unspecified (principal)
CPT/HCPCS: 96127; 99215

== ENCOUNTER 2023-08-30 12:45 | Outpatient (REF) | payer MEDICARE, BC, SELFPAY ==
[2023-08-30 16:04] LABS: MANUAL DIFF FLAG NO
[2023-08-30 16:24] LABS: Basophils Percent Auto 0.8 % (0-2); Eosinophils Absolute Auto 0.1 X10*3/uL (0.0-0.4); Eosinophils Percent Auto 2.3 % (0-4); Hematocrit 42.5 % (37.0-47.0); Hemoglobin 13.6 g/dl (12.0-16.0); Imm Gran Abs Auto 0.02 X10*3/uL (0.00-0.03); Imm Gran Pct Auto 0.4 % (0.0-0.4); Lymphocytes Absolute Auto 1.6 X10*3/uL (1.2-4.9); Lymphocytes Percent Auto 33.9 % (20-40); Mean Corpuscular Hemoglobin 31.3 pg (27.0-33.0); Mean Corpuscular Volume 97.7 fL (80.0-98.0); Mean Platelet Volume 9.6 fL (9.4-12.3); Monocytes Absolute Auto 0.3 X10*3/uL (0.1-1.2); Monocytes Percent Auto 7.2 % (2-11); Neutrophils Absolute Auto 2.6 x10*3/uL (2.0-8.3); Neutrophils Percent Auto 55.4 % (45-73); Platelet Count 215 X10*3/uL (160-400); Red Blood Count 4.35 X10*6/uL (4.20-5.50); Red Cell Distribution Width 13.4 % (11.0-16.0); White Blood Count 4.8 X10*3/uL (4.8-10.8)
[2023-08-30 16:36] LABS: Estimated Average Glucose 140 mg/dL; Hemoglobin A1C 148.7935 umol/L; Hemoglobin A1c % 6.5 % (<6.0)
[2023-08-30 16:41] LABS: Alanine Aminotransferase 13 U/L (0-31); Albumin Level 3.4 g/dL (3.5-5.0); Alkaline Phosphatase 66 U/L (39-117); Anion Gap 18 (12-20); Aspartate Amino Transferase 27 U/L (5-31); Bilirubin Total 0.3 mg/dL (0.0-1.0); Blood Urea Nitrogen 11 mg/dL (9-16); Carbon Dioxide 24 mmol/L (22-29); Chloride 104 mmol/L (96-108); Estimated Glomerular Filt Rate > 60; Glucose Random 155 mg/dL (60-115); Potassium 4.3 mmol/L (3.3-5.1); Sodium 142 mmol/L (135-145); Total Protein 7.2 g/dL (6.5-8.0)
[2023-08-30 16:57] LABS: TSH reflex Free T4 2.53 uIU/mL (0.32-4.0)
[2023-08-30 17:07] LABS: Vitamin B12 781 pg/mL (200-900)
[2023-09-01 01:59] LABS: LDL Cholesterol Direct 138 mg/dL (<100)
[2023-09-03 15:39] LABS: Vitamin D 25-OH, D2 <4 ng/mL; Vitamin D 25-OH, D3 51 ng/mL; Vitamin D 25-OH, Total 51 ng/mL (30-100)
== END 2023-08-30 12:46 | disposition home or self-care (01) ==
LOC: HO.HMGCLDS 12:45
PROVIDERS: PCP Internal Medicine; Visit Provider Internal Medicine
DX: K58.0 Irritable bowel syndrome with diarrhea (principal); I48.0 Paroxysmal atrial fibrillation; F31.12 Bipolar disorder, current episode manic without psychotic features, moderate; E11.9 Type 2 diabetes mellitus without complications; I10 Essential (primary) hypertension
CPT/HCPCS: 36415; 80053; 82306; 82607; 83036; 83721; 84443; 85025

== ENCOUNTER → 2023-08-30 23:59 | Outpatient (BNV) | payer MEDICARE, BC, SELFPAY | PROVIDERS: PCP Internal Medicine; Visit Provider Internal Medicine | DX: E11.9 Type 2 diabetes mellitus without complications (principal); I48.0 Paroxysmal atrial fibrillation; I10 Essential (primary) hypertension; K58.0 Irritable bowel syndrome with diarrhea | CPT/HCPCS: G0180 ==

== ENCOUNTER 2023-09-01 14:16 | Outpatient (AMB) | payer MEDICARE, BC, SELFPAY ==
[2023-09-01 14:23] VITALS: BP 120/72; PULSE 90; BMI 42.5
--- NOTE | 2023-09-01 14:23 | MHC.OFFVIS ---
Intake Vital Signs 09/01/23 14:23 Height 5 ft 3 in Weight 240 lb BMI 42.5 BP 120/72 Blood Pressure Location Lt brachial Position Sitting Pulse 90 Intake Visit Reasons: overdue follow-up do to hospitalization Residential Carpenter Required: No Teacher Of The Sight Impaired: Teacher Of The Sight Impaired Present Accompanied by: Significant Other Allergies aspirin [ASA] Allergy (Intermediate, Verified 09/01/23 14:30) GI PAIN, upset stomach hazelnut Allergy (Unknown, Verified 09/01/23 14:30) Unknown shellfish derived Allergy (Unknown, Verified 09/01/23 14:30) Unknown gluten Allergy (Verified 09/01/23 14:30) Unknown sesame seeds Allergy (Unknown, Uncoded 08/19/23 12:12) Unknown Medication List - Last Reconciled 09/01/23 by ETHAN Gutierrez amiodarone 100 mg PO DAILY divalproex 250 mg PO BEDTIME divalproex 500 mg PO BID furosemide (Lasix) 20 mg PO DAILY levothyroxine 150 mcg PO DAILY 90 days metoprolol succinate ER 50 mg PO BEDTIME rivaroxaban (Xarelto) 20 mg PO QPM trazodone 225 mg PO BEDTIME HPI overdue follow-up do to hospitalization HPI Details Chloe is a 68-year-old female with past medical history of hypertension, diabetes, diastolic dysfunction, morbid obesity, sedentary, persistent AFib presents for follow-up. Last prior visit to our office was 08/23/2022. Today she presents with her son. She is sitting in a wheelchair. She has coarse tremors of her upper extremities. She says she has been having increasing weakness since her last visit a year ago. She was in a rehab facility however E exercise were not effective on her. She is now back at home with services. She ambulates only short distances with the use of walk. She denies chest discomfort at rest or during activity. Breathing is comfortable, no palpitations, PND, orthopnea or edema. Note lightheadedness, presyncope, syncope, recent falls. She was having falling episodes prior to going into the rehab facility. She has been having issues with abdominal discomfort and diarrhea. She has a newer diagnosis of celiac disease and is trying to adjust her diet accordingly. She takes her medications as directed. No bleeding issues reported with Xarelto use. [facility] Medical History On anticoagulant therapy On beta carlos at home Bipolar 1 disorder Vertigo PTSD (post-traumatic stress disorder) History of cardioversion Arthritis Hypothyroidism History of wheezing Persistent atrial fibrillation Diabetes mellitus HTN (hypertension) LBBB (left bundle branch block) PAF (paroxysmal atrial fibrillation) Surgical History History of cardiac radiofrequency ablation History of eye surgery Hx of section Hx of colonoscopy Hx of cholecystectomy Hx of arthroscopy of right knee Family History Father No problems noted. Mother No problems noted. Other Mental health disorder Substance use disorder Social History Household Members: Family Household Members Other:: daughter + Housing: House Do you presently have visiting nurse or other home services: No Alcohol intake: never Patient Tobacco Use Status: Former Tobacco user Quit Date: 1989 e-Cigarette/Vaping Use: Never Used Second Hand Smoke Exposure: No Advance Directives Date on File: 06/29/23 service: No Current occupational status: employed Sexual orientation: Straight/Heterosexual Cognitive needs: No Hearing needs: No Vision needs: Yes Review of Systems Const All systems reviewed & are unremarkable except as noted in HPI and below ENT Denies dizziness Card Denies chest pain, Denies chest pain at rest, Denies chest pain with activity, Denies rapid heart rate, Denies pedal edema, Denies edema, Denies leg edema, Denies lightheadedness, Denies palpitations, Denies dyspnea, Denies dyspnea on exertion and Denies orthopnea Resp Denies cough, Denies dyspnea and Denies dyspnea on exertion GI Denies hematochezia and Denies change in stool character Musc Reports abnormal gait, Reports limited range of motion, Denies muscle cramps, Reports muscle weakness, Denies numbness, Denies radiating pain into limb, Denies stiffness and Denies tingling Neuro Reports abnormal gait, Denies dizziness, Denies numbness and Denies tingling Endo Denies palpitations Physical Exam Vital Signs: Last Vital Signs Pulse 90 09/01/23 14:23 BP 120/72 09/01/23 14:23 BMI result Body Mass Index 42.5 Const Other: Morbidly obese sitting in wheelchair General: cooperative, comfortable and no acute distress Orientation/consciousness: patient oriented x3 Neck Neck: Yes normal visual inspection Resp Effort & Inspection: normal respiratory effort Auscultation: clear to auscultation bilaterally, no crackles, no rales, no rhonchi and no wheezes Cardio Jugular venous distension: no JVD Rate: regular rate Heart sounds: S1 normal heart sound present, S2 normal heart sound present, no gallops, no murmurs and no rubs Neuro General: patient oriented x3 Extrem General: Yes normal to inspection, No no pedal edema and No calf tenderness Psych Appearance: grossly normal Mental Status: mental status grossly normal Speech and movement: Normal speech and movement present Office Procedures EKG Details: Today, read by me, atrial fibrillation, nonspecific intraventricular conduction delay, rate 90 [id number], Complete Assessment & Plan Assessment & Plan (1) Atrial fibrillation: Code(s): I48.91 - Unspecified atrial fibrillation Qualifiers: Atrial fibrillation type: persistent (not longstanding) Qualified Code(s): I48.19 - Other persistent atrial fibrillation Plan: History of atrial fibrillation, likely persistent. She did undergo an atrial fibrillation ablation back in 2021 with ongoing AFib. She did see Dr. Gray in follow-up and he wanted to wait a few months to see if the ablation took hold. He then left the practice and they did not present for follow-up. An EKG done today shows atrial fibrillation with left bundle branch block, rate 90. She continues on amiodarone. Discussed meds with Dr. Mendez. Will have her stop amiodarone, continue on metoprolol. Will treat AFib with rate control. No need to refer back to copy center associate at this time. Continue Xarelto for anticoagulation. Labs done 08/30/2023 showed creatinine 0.75, hematocrit 42.5. Will wait 1 month and check Holter monitor and echocardiogram. Plan to call her with results She states understanding of this plan. Cardiology office visit in 3 months, sooner if needed (2) HTN (hypertension): Comment: As above Code(s): I10 - Essential (primary) hypertension Qualifiers: Hypertension type: primary hypertension Qualified Code(s): I10 - Essential (primary) hypertension Plan: Well controlled at present time. Continue current antihypertensives (3) LBBB (left bundle branch block): Comment: not present on today's EKG. No interventions required. Code(s): I44.7 - Left bundle-branch block, unspecified Plan: Noted on EKG (4) Diarrhea: Code(s): R19.7 - Diarrhea, unspecified Plan: New diagnosis of celiac disease. Following with GI at [facility] (5) Gait instability: Code(s): R26.81 - Unsteadiness on feet Plan: Mostly sedentary, ambulates with walker. Has had falling in the past, denies recent falls. At this time will continue on anticoagulation Orders: Orders ECG 3 day holter monitor 1 Month I48.0 - Paroxysmal atrial fibrillation CA echo transthoracic complete 1 Month I48.0 - Paroxysmal atrial fibrillation Coding Level of Care Code Est Pt Level 4 (13657) Diagnoses Persistent atrial fibrillation I48.19 Atrial fibrillation type: persistent (not longstanding) Primary hypertension I10 Hypertension type: primary hypertension LBBB (left bundle branch block) I44.7 Diarrhea R19.7 Gait instability R26.81 CPT Codes EKG - CPT: 02686-[id number], Complete ([id number]) Time Spent (min) 30
== END 2023-09-01 15:33 | disposition home or self-care (01) ==
PROVIDERS: PCP Internal Medicine; Visit Provider Nurse Practitioner Family
DX: I48.19 Other persistent atrial fibrillation (principal); I10 Essential (primary) hypertension; I44.7 Left bundle-branch block, unspecified; R19.7 Diarrhea, unspecified; R26.81 Unsteadiness on feet
CPT/HCPCS: 93010; 99214

== ENCOUNTER → 2023-09-01 14:16 | Outpatient (BNVA) | payer MEDICARE, BC, SELFPAY | PROVIDERS: PCP Internal Medicine; Visit Provider Nurse Practitioner Family | DX: I48.19 Other persistent atrial fibrillation (principal); I10 Essential (primary) hypertension; I44.7 Left bundle-branch block, unspecified; R19.7 Diarrhea, unspecified; R26.81 Unsteadiness on feet | CPT/HCPCS: 93005; 99212 ==

== ENCOUNTER 2023-09-03 17:06 | Emergency (ER) | payer MEDICARE, BC, SELFPAY ==
--- NOTE | ~2023-09-03 | CT_ITS ---
EXAMINATION: CT ABDOMEN AND PELVIS WITH CONTRAST CLINICAL INFORMATION: diarrhea, confusion, abd pain COMPARISON: None available. TECHNIQUE: Multidetector volumetric images were obtained from the superior aspect of the liver through the pubic symphysis following administration 85 mL of Omnipaque 350 intravenous contrast. Sagittal and coronal reformatted images were obtained on the technologist's workstation. Oral contrast: No This CT examination was performed using dose optimization techniques as appropriate, variously including the following: *Automated exposure control *Adjustment of mA and/or kV according to patient size (this includes techniques or standardized protocols for targeted exams where dose is matched to indication/reason for exam; i.e. extremities or head) *Use of iterative reconstruction technique DLP: 1175.71+4.87+4.87 mGy-cm FINDINGS: LUNG BASES: The visualized lung bases are unremarkable. LIVER, GALLBLADDER, AND BILIARY TREE: Geographic area of focal low-attenuation in the left lobe of liver near the fawn hepatis likely focal fatty change. Status post cholecystectomy PANCREAS: Unremarkable. SPLEEN: Unremarkable. ADRENAL GLANDS: Unremarkable. KIDNEYS AND URETERS: Kidneys are normal in size and contour. Normal enhancement of the cortex. No mass. No renal or ureteral calculus. No hydronephrosis. BLADDER: There is an rounded hyperdense nodular opacity along the right inferior bladder wall measuring 1.2 cm. Coronal image 58/97 series 27. This is suspicious for bladder mass. GASTROINTESTINAL TRACT: The small and large bowel are unremarkable. The appendix is nonvisualized. No edema or fluid collections in the mesentery. ABDOMINAL WALL: No significant hernia is appreciated. LYMPH NODES: Normal. VASCULAR: Vascular calcifications in the abdomen and the pelvis. PELVIC VISCERA: Unremarkable. OSSEOUS STRUCTURES: Multilevel degenerative spondylosis of the spine. CT/CT abdomen pelvis w IV con IMPRESSION: 1. No acute abnormality of the abdomen or pelvis. 2. Rounded nodular opacity along the right inferior bladder wall suspicious for bladder mass. Recommend cystoscopy for further evaluation. 3. Status post cholecystectomy. 4. Focal area of low-attenuation in the left lobe of liver near the fawn hepatis likely focal fatty change. Fleischner guidelines were followed.
--- NOTE | ~2023-09-03 | CT_ITS ---
EXAMINATION: CT HEAD WITHOUT CONTRAST CLINICAL INFORMATION: Confusion COMPARISON: Prior CT scan head May 2023. TECHNIQUE: Contiguous axial imaging was performed from the skull base to vertex without intravenous administration of contrast. Patient was imaged twice because of prominent motion artifact This CT examination was performed using dose optimization techniques as appropriate, variously including the following: *Automated exposure control *Adjustment of mA and/or kV according to patient size (this includes techniques or standardized protocols for targeted exams where dose is matched to indication/reason for exam; i.e. extremities or head) *Use of iterative reconstruction technique DLP: 1428 mGy-cm FINDINGS: Exam is limited because of significant motion artifact despite repeating examination. There is no mass hemorrhage or cerebral edema. Ventricles and basilar cisterns are normal. Sinuses clear. Mastoid air cells clear. Soft tissues: Normal. Bone: Normal. No fracture. CT/CT head/brain wo IV con IMPRESSION: 1. Limited exam because of significant motion artifact. 2. No acute intracranial pathology.
[2023-09-03 17:23] VITALS: BP 102/53; BP 130/82; PULSE 101; PULSE 80; RESP 18; TEMP 36.9; O2SAT 95; O2SAT 96; BMI 43.1
--- NOTE | 2023-09-03 17:23 | MHC.EDTECH ---
Patient changed over
[2023-09-03 17:27] VITALS: TEMP 36.9
--- NOTE | 2023-09-03 17:28 | PC.NURSE ---
Patient arrived via ems from home. Per ems patient`s reports that she was recently discharged from [facility] and has been weak and having difficulty ambulating at home. Patient has been having difficulty and needing more assistance getting to the bathroom. states patient seems confused. Patient reports no pain, does not know why she came to the hospital . Patient with large red area fungal rash under right breast. Bilat groin creases with strong odor and fungal rash.
--- NOTE | 2023-09-03 17:32 | ED_ITS ---
HPI - General Adult General Chief complaint: General Medical Stated complaint: DIFF AMBULATING, BACK PAIN, HX DEMENTIA Time Seen by Provider: 09/03/23 17:32 Source: patient, family (patient's ) and EMS Mode of arrival: EMS Limitations: other (patient somewhat confused) History of Present Illness HPI narrative: Patient is a 68 year old assigned female at with a history of atrial fib, bipolar disorder, HTN, unsteady gait, and chronic diarrhea presenting to the emergency department today with weakness, increased confusion, and diarrhea. Patient's states that the patient was just discharged home from [facility], was improving, but is now too weak to be home. Patient's states that the patient has been having bouts of diarrhea that make her too weak to function and he feels she seems to be more confused. Patient denies any dizziness, lightheadedness, abdominal pain, nausea, vomiting, fever, chills, blurry vision, double vision, loss of vision, chest pain, difficulty breathing, shortness of breath, back pain, night sweats, pain with urination, increased urinary frequency, increased urinary urgency, blood in her urine or stool, syncope or a near syncopal episode, recent trauma or falls, bowel incontinence, bladder incontinence, bowel retention, bladder retention, or any other complaints at this time. Onset (ago): day(s) Relieving factors: none Exacerbating factors: none Associated symptoms: confusion Treatments prior to arrival: none Related Data Home Medications Medication Instructions Recorded Confirmed trazodone 150 mg tablet 225 mg PO BEDTIME 07/09/22 09/01/23 divalproex 250 mg tablet,delayed 250 mg PO BEDTIME 06/10/23 09/01/23 release divalproex 500 mg tablet,delayed 500 mg PO BID 06/10/23 09/01/23 release metoprolol succinate 50 mg 50 mg PO BEDTIME 06/29/23 09/01/23 tablet,extended release 24 hr Previous Rx's Medication Instructions Recorded furosemide 20 mg tablet (Lasix) 20 mg PO DAILY #30 tabs 07/06/22 levothyroxine 150 mcg tablet 150 mcg PO DAILY for disorder of 06/10/23 thyroid gland 90 days #90 tabs rivaroxaban 20 mg tablet (Xarelto) 20 mg PO QPM #90 tabs 08/30/23 Allergies Allergy/AdvReac Type Severity Reaction Status Date / Time aspirin [ASA] Allergy Intermediate GI PAIN, Verified 09/01/23 14:30 upset stomach hazelnut Allergy Unknown Unknown Verified 09/01/23 14:30 shellfish derived Allergy Unknown Unknown Verified 09/01/23 14:30 gluten Allergy Unknown Verified 09/01/23 14:30 sesame seeds Allergy Unknown Unknown Uncoded 08/19/23 12:12 Review of Systems 2 Review of Systems: Yes Other (patient intermittently confused) Constitutional: Constitutional: Reports no additional constitutional complaints, Denies chills, Denies fever(s), Denies night sweats and Reports weakness Eyes: Eyes: Reports no additional eye complaints, Denies blurry vision, Denies change in vision, Denies diplopia, Denies eye discharge, Denies loss of vision and Denies eye pain ENT: Denies dizziness Cardiovascular: Cardiovascular: Reports no additional cardiovascular complaints, Denies chest pain, Denies lightheadedness, Denies Loss of Consciousness and Denies dyspnea Respiratory: Respiratory: Reports no additional respiratory complaints and Denies dyspnea Gastrointestinal: Gastrointestinal: Reports no additional gastrointestinal complaints, Denies abdominal pain, Denies melena, Denies hematochezia, Denies change in bowel habits, Denies change in stool character and Reports diarrhea Genitourinary: Genitourinary: Denies hematuria, Denies urinary frequency, Denies dysuria, Denies urinary incontinence, Denies urinary hesitancy and Denies urinary urgency Musculoskeletal: Musculoskeletal: Reports no additional musculoskeletal complaints, Denies numbness and Denies tingling Neurologic: Denies dizziness, Denies loss of vision, Denies numbness, Denies tingling and Reports weakness Psychiatric: Psychiatric: Reports no additional psychiatric complaints Endocrine: Endocrine: Reports no additional endocrine complaints Hematologic/Lymphatic: Hematologic/Lymphatic: Reports no additional hematologic/lymphatic complaints Allergic/Immunologic: Allergic/Immunologic: Reports no additional allergic/immunologic complaints [facility]LY [facility] Past Medical History Attestation statement: The following information was validated with the patient. (all information validated with the patient's ) Source: old records reviewed and obtained from family (patient's provided additional history and confirmed the history provided by the patient.) Medical History (Updated 09/04/23 @ 00:19 by ISABELLA Panchal) Hip pain, left Paroxysmal atrial fibrillation Morbid obesity due to excess calories Non-insulin dependent type 2 diabetes mellitus Pre-op evaluation Medication side effect Muscle stiffness Hospital discharge follow-up Weakness Leg edema SOB (shortness of breath) On anticoagulant therapy On beta carlos at home Bipolar 1 disorder Vertigo PTSD (post-traumatic stress disorder) History of cardioversion Arthritis Hypothyroidism History of wheezing Persistent atrial fibrillation Diabetes mellitus HTN (hypertension) LBBB (left bundle branch block) PAF (paroxysmal atrial fibrillation) Surgical History History of cardiac radiofrequency ablation History of eye surgery Hx of section Hx of colonoscopy Hx of cholecystectomy Hx of arthroscopy of right knee Family History Family History Father No problems noted. Mother No problems noted. Other Mental health disorder Substance use disorder Social History Social History Household Members: Family Household Members Other:: daughter + Housing: House Do you presently have visiting nurse or other home services: No Alcohol intake: former Patient Tobacco Use Status: Former Tobacco user Quit Date: 1989 Smoked in Last 30 Days: No e-Cigarette/Vaping Use: Never Used Second Hand Smoke Exposure: No Use of substances other than those prescribed or required for medical reasons: No Advance Directives: No Advance Directives Information Provided: No Advance Directives Date on File: 06/29/23 service: No Current occupational status: employed Sexual orientation: Straight/Heterosexual Cognitive needs: No Hearing needs: No Vision needs: Yes Physical Exam ED Vital Signs: Vital Signs - 24 hr 09/03/23 17:23 09/03/23 17:27 09/03/23 20:11 Temperature 98.4 F 98.4 F 99.3 F Pulse Rate 80 98 Respiratory Rate 18 18 Blood Pressure 102/53 L 101/58 L Pulse Oximetry 96 Oxygen Delivery Method Room Air Room Air Oxygen Flow Rate 95 09/03/23 22:48 09/03/23 23:58 Temperature 98.7 F 98.6 F Pulse Rate 98 95 Respiratory Rate 16 18 Blood Pressure 115/64 130/67 Pulse Oximetry 94 95 Oxygen Delivery Method Room Air Room Air Oxygen Flow Rate BMI result Body Mass Index 43.1 Const General: cooperative, no acute distress, alert and awake Nutritional Appearance: well nourished Orientation/consciousness: patient oriented x3 Limitations: no limitations HENMT Head: Yes normal to inspection and Yes atraumatic Ears: hearing grossly normal bilaterally and external ears normal General nose exam: Normal external nose present, no nasal discharge noted and no epistaxis Face and sinus: Yes normal facial exam, No abrasion and No laceration Mouth: Normal oral and palatal mucosa present, no drooling and no muffled voice Eyes General: appearance normal, both eyes and all related structures Periorbital: periorbital findings normal Eyelids: Yes eyelids normal Conjunctivae: conjunctivae normal Pupils: Equal, round and reactive pupils present EOM: EOMs intact bilaterally Neck Neck: Yes normal visual inspection, Yes full ROM and Yes no lymphadenopathy Chest Chest/axillae images: 2 1. erythematous skin - likely yeast infection Resp Effort & Inspection: normal respiratory effort and able to speak in complete sentences GI Inspection: Yes normal to inspection Neuro Other: patient has a chronic tremor General: patient oriented x3 and moves all extremities Cranial nerves: Yes Equal, round and reactive pupils present Cognition (Neuro): normal cognition Motor exam (neuro): 5/5 motor strength present throughout Sensory Exam: Normal double simultaneous stimulation for sensation Coordination: [id number] test normal Extrem General: Yes normal to inspection, Yes full ROM and Yes capillary refill normal Psych Appearance: grossly normal Mental Status: mental status grossly normal Affect: normal affect Attitude: cooperative Thought process: Normal thought process present Thought content: Normal thought content present Insight: Good insight present (Psych) Medications Administered Discontinued Medications Generic Name Dose Route Start Last Admin Trade Name Freq PRN Reason Stop Dose Admin Sodium Chloride 1,000 mls @ 999 mls/hr 09/03/23 19:00 09/03/23 19:50 Ns IV 09/03/23 20:00 999 mls/hr .Q1H1M SELMA Administration Iohexol 100 ml 09/03/23 19:51 09/03/23 19:51 Iohexol 350 Mg/Ml 100 Ml Infus..Btl IV 09/03/23 19:52 85 ml ONCE ONE Administration Medical Decision Making Medical Decision Making MDM Narrative: Patient is a 68 year old assigned female at with a history of atrial fib, bipolar disorder, HTN, unsteady gait, and chronic diarrhea presenting to the emergency department today with intermittent confusion, weakness, and chronic diarrhea. Patient's physical exam was as noted in the physical exam portion of this note. Patient has an obvious yeast infection under her right breast. Patient's blood work was unremarkable. Patient's urine is pending. Patient's head CT showed no acute process. Patient's abdomen/pelvis CT showed evidence of a possible bladder mass but was otherwise unremarkable. I explained my physical exam findings as well as all test results to the patient and the patient's . I answered all questions asked by the patient and the patient's . Physical therapy evaluation placed. Case management evaluation placed. Diet ordered. Patient placed in physician observation. Differential Diagnosis Differential Diagnoses: The differential diagnosis associated with the presentation includes Weakness Failure to thrive Chronic diarrhea Admission/Observation Consideration of admission/observation: Escalation of care including admission/observation considered Patient would have been admitted to the hospital had her work up had any findings where hospital admission was appropriate and her clinical presentation warranted hospital admission. Lab Data MDM Lab Attestation statement: I reviewed the patient's lab results. My interpretation of these studies and their corresponding values is that they are grossly normal. 09/03/23 17:55 09/03/23 17:55 Labs: Lab Results 09/03/23 09/03/23 Range/Units 17:55 19:58 WBC 5.7 (4.8-10.8) X10*3/uL RBC 4.30 (4.20-5.50) X10*6/uL Hgb 13.4 (12.0-16.0) g/dl Hct 40.6 (37.0-47.0) % MCV 94.4 (80.0-98.0) fL MCH 31.2 (27.0-33.0) pg MCHC 33.0 (31.0-35.0) g/dl RDW 13.2 (11.0-16.0) % Plt Count 167 (160-400) X10*3/uL MPV 8.8 L (9.4-12.3) fL Immature Gran % (Auto) 0.5 H (0.0-0.4) % Neut % (Auto) 53.2 (45-73) % Lymph % (Auto) 32.7 (20-40) % Mccreary % (Auto) 10.9 (2-11) % Eos % (Auto) 2.3 (0-4) % Baso % (Auto) 0.4 (0-2) % Lymph # (Auto) 1.9 (1.2-4.9) X10*3/uL Mccreary # (Auto) 0.6 (0.1-1.2) X10*3/uL Eos # (Auto) 0.1 (0.0-0.4) X10*3/uL Baso # (Auto) 0.0 (0.0-0.2) X10*3/uL Abs Immat Gran (auto) 0.03 (0.00-0.03) X10*3/uL Absolute Neuts (auto) 3.0 (2.0-8.3) x10*3/uL Absolute Nucleated RBC 0.000 (0.0-0.012) X10*3/uL Nucleated RBC % (auto) 0.0 (0.0-0.2) /100WBC PT 14.0 H (11.1-13.3) SEC INR 1.2 H (0.9-1.1) APTT 29.8 (26.0-36.4) SEC Sodium 139 (135-145) mmol/L Potassium 4.2 (3.3-5.1) mmol/L Chloride 100 (96-108) mmol/L Carbon Dioxide 28 (22-29) mmol/L Anion Gap 15 (12-20) BUN 11 (9-16) mg/dL Creatinine 0.85 (0.5-1.4) mg/dL Estim Creat Clear Calc 77.7 Estimated GFR > 60 Random Glucose 127 H (60-115) mg/dL Calcium 8.8 (8.4-10.2) mg/dL Magnesium 1.6 (1.6-2.6) mg/dL Total Bilirubin 0.3 (0.0-1.0) mg/dL AST 29 (5-31) U/L ALT 15 (0-31) U/L Alkaline Phosphatase 71 (39-117) U/L Ammonia 28 (13-55) umol/L Total Protein 6.8 (6.5-8.0) g/dL Albumin 3.2 L (3.5-5.0) g/dL Influenza Type A (PCR) NEGATIVE (Negative) Influenza Type B (PCR) NEGATIVE (Negative) RSV RNA Qual (PCR) NEGATIVE (Negative) SARS-CoV-2 RNA (RT-PCR) NEGATIVE (Negative) Independent Interpretation I performed an independent interpretation of an: CT Scan Interpretation: My interpretation is in agreement with the radiologist's impression of these imaging studies. - EXAMINATION: CT ABDOMEN AND PELVIS WITH CONTRAST CLINICAL INFORMATION: diarrhea, confusion, abd pain COMPARISON: None available. TECHNIQUE: Multidetector volumetric images were obtained from the superior aspect of the liver through the pubic symphysis following administration 85 mL of Omnipaque 350 intravenous contrast. Sagittal and coronal reformatted images were obtained on the technologist's workstation. Oral contrast: No This CT examination was performed using dose optimization techniques as appropriate, variously including the following: *Automated exposure control *Adjustment of mA and/or kV according to patient size (this includes techniques or standardized protocols for targeted exams where dose is matched to indication/reason for exam; i.e. extremities or head) *Use of iterative reconstruction technique DLP: 1175.71+4.87+4.87 mGy-cm FINDINGS: LUNG BASES: The visualized lung bases are unremarkable. LIVER, GALLBLADDER, AND BILIARY TREE: Geographic area of focal low-attenuation in the left lobe of liver near the fawn hepatis likely focal fatty change. Status post cholecystectomy PANCREAS: Unremarkable. SPLEEN: Unremarkable. ADRENAL GLANDS: Unremarkable. KIDNEYS AND URETERS: Kidneys are normal in size and contour. Normal enhancement of the cortex. No mass. No renal or ureteral calculus. No hydronephrosis. BLADDER: There is an rounded hyperdense nodular opacity along the right inferior bladder wall measuring 1.2 cm. Coronal image 58/97 series 27. This is suspicious for bladder mass. GASTROINTESTINAL TRACT: The small and large bowel are unremarkable. The appendix is nonvisualized. No edema or fluid collections in the mesentery. ABDOMINAL WALL: No significant hernia is appreciated. LYMPH NODES: Normal. VASCULAR: Vascular calcifications in the abdomen and the pelvis. PELVIC VISCERA: Unremarkable. OSSEOUS STRUCTURES: Multilevel degenerative spondylosis of the spine. CT/CT abdomen pelvis w IV con IMPRESSION: 1. No acute abnormality of the abdomen or pelvis. 2. Rounded nodular opacity along the right inferior bladder wall suspicious for bladder mass. Recommend cystoscopy for further evaluation. 3. Status post cholecystectomy. 4. Focal area of low-attenuation in the left lobe of liver near the fawn hepatis likely focal fatty change. Fleischner guidelines were followed Dictated By: Calos Griffin MD Signed By: Electronically signed by Calos Griffin MD 09/03/232045 - EXAMINATION: CT HEAD WITHOUT CONTRAST CLINICAL INFORMATION: Confusion COMPARISON: Prior CT scan head May 2023. TECHNIQUE: Contiguous axial imaging was performed from the skull base to vertex without intravenous administration of contrast. Patient was imaged twice because of prominent motion artifact This CT examination was performed using dose optimization techniques as appropriate, variously including the following: *Automated exposure control *Adjustment of mA and/or kV according to patient size (this includes techniques or standardized protocols for targeted exams where dose is matched to indication/reason for exam; i.e. extremities or head) *Use of iterative reconstruction technique DLP: 1428 mGy-cm FINDINGS: Exam is limited because of significant motion artifact despite repeating examination. There is no mass hemorrhage or cerebral edema. Ventricles and basilar cisterns are normal. Sinuses clear. Mastoid air cells clear. Soft tissues: Normal. Bone: Normal. No fracture. CT/CT head/brain wo IV con IMPRESSION: 1. Limited exam because of significant motion artifact. 2. No acute intracranial pathology. Dictated By: Christ Harrell MD Signed By: Electronically signed by Christ Harrell MD 09/03/232035 Radiology Impression Discussion of test interpretation with radiology: I have reviewed the radiologist's reading. Independent Historian Clinical information obtained from an independent historian. History obtained from or confirmed by: Spouse (patient's provided additional history and confirmed the history provided by the patient.) and EMS (EMS provided additional history and confirmed the history provided by the patient.) External Record Review External record reviewed: Inpatient record, Office record and Outpatient record Chronic Conditions Patient?s care impacted by: Diabetes Critical Care Time Critical Care Time Critical Care Time: Yes Total Critical Care Time: 45 Attestation: I spent 45 minutes of Critical Care Time with this patient. This does not include time spent on separately reported billable procedures. Discharge Plan Discharge Clinical Impression: Weakness, Chronic diarrhea, Bladder mass Patient Disposition: Still a Patient Prescriptions: No Action levothyroxine 150 mcg tablet 150 mcg PO DAILY 90 Days Qty: 90 1RF Xarelto 20 mg tablet 20 mg PO QPM Qty: 90 0RF metoprolol succinate 50 mg tablet extended release 24 hr 50 mg PO BEDTIME furosemide [Lasix] 20 mg tablet 20 mg PO DAILY Qty: 30 5RF trazodone 150 mg tablet 225 mg PO BEDTIME divalproex 250 mg tablet,delayed release (DR/EC) 250 mg PO BEDTIME divalproex 500 mg tablet,delayed release (DR/EC) 500 mg PO BID Rx Instructions: 500 in the morning and 750 at night
[2023-09-03 17:59] LABS: MANUAL DIFF FLAG NO
[2023-09-03 18:00] LABS: Basophils Percent Auto 0.4 % (0-2); Eosinophils Absolute Auto 0.1 X10*3/uL (0.0-0.4); Eosinophils Percent Auto 2.3 % (0-4); Hematocrit 40.6 % (37.0-47.0); Hemoglobin 13.4 g/dl (12.0-16.0); Imm Gran Abs Auto 0.03 X10*3/uL (0.00-0.03); Imm Gran Pct Auto 0.5 % (0.0-0.4); Lymphocytes Absolute Auto 1.9 X10*3/uL (1.2-4.9); Lymphocytes Percent Auto 32.7 % (20-40); Mean Corpuscular Hemoglobin 31.2 pg (27.0-33.0); Mean Corpuscular Volume 94.4 fL (80.0-98.0); Mean Platelet Volume 8.8 fL (9.4-12.3); Monocytes Absolute Auto 0.6 X10*3/uL (0.1-1.2); Monocytes Percent Auto 10.9 % (2-11); Neutrophils Percent Auto 53.2 % (45-73); Platelet Count 167 X10*3/uL (160-400); Red Cell Distribution Width 13.2 % (11.0-16.0); White Blood Count 5.7 X10*3/uL (4.8-10.8)
[2023-09-03 18:06] LABS: INTERNATIONAL NORM RATIO 1.2 (0.9-1.1)
[2023-09-03 18:08] LABS: Partial Thromboplastin Time 29.8 SEC (26.0-36.4)
[2023-09-03 18:17] LABS: Alanine Aminotransferase 15 U/L (0-31); Albumin Level 3.2 g/dL (3.5-5.0); Alkaline Phosphatase 71 U/L (39-117); Anion Gap 15 (12-20); Aspartate Amino Transferase 29 U/L (5-31); Bilirubin Total 0.3 mg/dL (0.0-1.0); Blood Urea Nitrogen 11 mg/dL (9-16); Calcium 8.8 mg/dL (8.4-10.2); Carbon Dioxide 28 mmol/L (22-29); Chloride 100 mmol/L (96-108); Creatinine Clr Calc Pharmacy 77.7; Estimated Glomerular Filt Rate > 60; Glucose Random 127 mg/dL (60-115); Magnesium 1.6 mg/dL (1.6-2.6); Potassium 4.2 mmol/L (3.3-5.1); Sodium 139 mmol/L (135-145); Total Protein 6.8 g/dL (6.5-8.0)
--- NOTE | 2023-09-03 18:28 | PC.NURSE ---
Patient reports no pain or discomfort, at bedside
--- NOTE | 2023-09-03 18:28 | PC.NURSE ---
Patient with open area to buttocks, patient requesting for area to not be covered at this time
[2023-09-03 18:40] LABS: Influenza A PCR NEGATIVE (Negative); Influenza B PCR NEGATIVE (Negative); Resp Syncy Virus RNA Qual PCR NEGATIVE (Negative); SARS COV2 PCR INHOUSE NEGATIVE (Negative)
[2023-09-03] MEDS: Nystatin Ointment 15 GM TUBE 1 APPL TOPICAL (19:45)
[2023-09-03] MEDS: 0.9 % Sodium Chloride 1,000 ML 999 ML IV (19:50)
[2023-09-03] MEDS: iohexoL 350 MG/ML 100 ML INFUS..BTL IV (19:51)
[2023-09-03 20:11] VITALS: BP 101/58; PULSE 98; RESP 18; TEMP 37.4
--- NOTE | 2023-09-03 20:12 | MHC.EDTECH ---
This tech took over care at 1900,hourly rounds and vitals completed,lab was obtained and sent to lab.Family at bedside and call mena within reach.
[2023-09-03 20:20] LABS: Ammonia 28 umol/L (13-55)
--- NOTE | 2023-09-03 21:10 | MHC.EDTECH ---
Patient was unable to go on bedpan, Pure Wick placed per RN.
[2023-09-03 22:48] VITALS: BP 115/64; PULSE 98; RESP 16; TEMP 37.1; O2SAT 94
--- NOTE | 2023-09-03 22:49 | MHC.EDTECH ---
Hourly rounds and vitals completed,patient is resting comfortably at this time.
[2023-09-03 23:58] VITALS: BP 130/67; PULSE 95; RESP 18; TEMP 37; O2SAT 95
[2023-09-04] VITALS (9 sets, daily range): BP systolic 98–146; BP diastolic 46–80; PULSE 85–117; RESP 14–20; TEMP 36.6–36.9; O2SAT 93–96
--- NOTE | 2023-09-04 00:12 | MHC.EDTECH ---
Patient placed into hospital bed for comfort,repositioned to right side with pillows. Urine sample collected and sent to lab.Call mena within reach
[2023-09-04 00:46] LABS: Appearance Urine Clear; Color Urine Yellow; Glucose Urine UA Negative (Negative); Leukocyte Esterase Urine Negative (Negative); Nitrite Urine Negative (Negative); Specific Gravity - Urine >= 1.030 (1.005-1.025); UMIC TRIGGER UACC YES; Urine Blood Trace (Negative); Urine Ketones 15 mg/dL (Negative); Urine Protein Trace mg/dL (Neg-Trace)
[2023-09-04 01:06] LABS: Bacteria Urine None Seen (None Seen); Hyaline Casts Urine 0-2 /LPF (0-2); Squamous Epithelial Cell Urine 0-2 /HPF (0-2); UACC Culture Trigger YES; WBC Urine 21-50 /HPF (0-5)
--- NOTE | 2023-09-04 01:54 | MHC.EDTECH ---
Rounds competed and patient is sleeping at this time,patient has pure wick in place and is clean and dry
--- NOTE | 2023-09-04 04:10 | MHC.EDTECH ---
Hourly rounds completed,patient is sleeping at this time and call mena within reach
--- NOTE | 2023-09-04 06:08 | MHC.EDTECH ---
Hourly rounds completed, patient was incont. of a moderate amount of soft brown stool, Patient was cleaned and repositioned, placed a new Pure Wick due to being soiled ,emptied 400ML of urine from canister. Stool sample collected and sent to lab. Call mena within reach
--- NOTE | 2023-09-04 07:16 | PC.NURSE ---
pt sleeping but easily arousable, pt appears to be oriented, knows where she is, the year and the reason she was at [facility] for multiple falls at home.respirations even and unlabored, pt denies pain, pt does have a hand tremor- so needed assistance with feeding herself pt ate a small amount of her breakfast and did not drink anything states she does not want anything at this time.
--- NOTE | 2023-09-04 07:49 | PHA.MEDREC ---
Pharmacy Consult ? Medication Reconciliation Pharmacy has reviewed the medication reconciliation completed by nursing. Spoke with Bautista, patient is no longer on lasix therefore removed from list and patient is currently on Viberzi. Mishel Romero, MarshaD
[2023-09-04 07:57] LABS: CDiff Gene PCR POSITIVE (Negative)
[2023-09-04] MEDS: Levothyroxine Sodium 150 MCG TABLET PO (08:12)
[2023-09-04] MEDS: Divalproex Sodium 500 MG TABLET.DR PO (08:12)
[2023-09-04] MEDS: 0.9 % Sodium Chloride 1,000 ML 999 ML IV (08:29)
[2023-09-04] MEDS: vancomycin HCL 125 MG CAPSULE PO (08:29)
[2023-09-04] MEDS: metroNIDAZOLE/NS 500 MG/100 ML PIGGYBACK 100 MG IV (08:29)
--- NOTE | 2023-09-04 08:34 | PC.NURSE ---
this rn was doing vs and noticed that the pt is in a-fib, pt put on the monitor and she is currently in a-fib ranging from 113-120's Benjamin talent acquisition sourcer aware
--- NOTE | 2023-09-04 08:44 | MHC.EDTECH ---
placed on the heart monitor per the nurse request due to afib concern.
--- NOTE | 2023-09-04 08:51 | ECG_ITS ---
Test Reason : AFIB Blood Pressure : / mmHG Vent. Rate : 118 BPM Atrial Rate : 000 BPM P-R Int : 000 ms QRS Dur : 126 ms QT Int : 340 ms P-R-T Axes : 000 -38 139 degrees QTc Int : 476 ms Atrial fibrillation with rapid ventricular response with premature ventricular or aberrantly conducted complexes Left axis deviation Non-specific intra-ventricular conduction block T wave abnormality, consider lateral ischemia Abnormal ECG When compared with ECG of 29-JUN-2023 15:10, No significant change was found Referred By: Lucina Lezama Electronically Signed By:ASHLEY BOLANOS MD
[2023-09-04 08:53] LABS: CDIFF Internal ctrl Dots and bkg OK (V); CDiff Toxin Negative (Negative)
--- NOTE | 2023-09-04 09:17 | PC.NURSE ---
kj d/c and taken down the infusion is about half completed
[2023-09-04 09:19] LABS: Adenovirus F 40/41 Not Detected (Not Detect.); Astrovirus Not Detected (Not Detect.); Campylobacter Not Detected (Not Detect.); Cryptosporidium Not Detected (Not Detect.); Cyclospora cayetanensis Not Detected (Not Detect.); E. coli EAEC Not Detected (Not Detect.); E. coli EPEC Not Detected (Not Detect.); E. coli ETEC Not Detected (Not Detect.); E. coli STEC Not Detected (Not Detect.); Entamoeba histolytica Not Detected (Not Detect.); Giardia lamblia Not Detected (Not Detect.); Norovirus GI/GII Not Detected (Not Detect.); Plesiomonas shigelloides Not Detected (Not Detect.); Rotavirus A Not Detected (Not Detect.); Salmonella Not Detected (Not Detect.); Sapovirus Not Detected (Not Detect.); Shigella sp./EIEC Not Detected (Not Detect.); Vibrio Not Detected (Not Detect.); Vibrio Cholerae Not Detected (Not Detect.); Yersinia enterocolitica Not Detected (Not Detect.)
[2023-09-04] MEDS: dilTIAZem HCL 50 MG/10 ML VIAL IVPUSH (09:33)
[2023-09-04] MEDS: Metoprolol Succinate ER 50 MG TAB.ER.24H PO (09:33)
[2023-09-04] MEDS: 0.9 % Sodium Chloride 500 ML 999 ML IV (09:46)
--- NOTE | 2023-09-04 09:47 | MHC.CM.PN ---
Received consult from ED provider. This CM met with pt and spouse at bedside. Pt presents with weakness r/t diarrhea and is from home with spouse, Bautista. Pt was d/c'd from [facility] on 08/12/23 after a 42 day STR stay. Now active with [facility] for PT/OT. +HCP: Spouse Bauitsta [phone] PCP: Cornell Gutierrez DP: Goal is home via BLS, resume services. Awaiting medical clearance.
--- NOTE | 2023-09-04 10:57 | PC.NURSE ---
This RN assumed care of patient at 1045. Pt is resting comfortably on hospital bed with spouse at bedside. Patient denies any pain at this time. Respirations even and unlabored, skin pwd, no apparent distress. Patient continues to be in afib, bouncing between 90s and 120s for a heart rate. Verbal order from Benjamin, AR[employer] MANAGER for 5mg more of Cardizem
[2023-09-04] MEDS: dilTIAZem HCL 50 MG/10 ML VIAL 10 MG IVPUSH (11:20)
--- NOTE | 2023-09-04 11:36 | ECG_ITS ---
Test Reason : REPEAT AFIB/RVR Blood Pressure : / mmHG Vent. Rate : 089 BPM Atrial Rate : 000 BPM P-R Int : 000 ms QRS Dur : 130 ms QT Int : 412 ms P-R-T Axes : 000 -49 150 degrees QTc Int : 501 ms Atrial fibrillation Left axis deviation Non-specific intra-ventricular conduction block T wave abnormality, consider lateral ischemia Abnormal ECG When compared with ECG of 04-SEP-2023 08:58, No significant change was found Referred By: Lucina Lezama Electronically Signed By:ASHLEY BOLANOS MD
--- NOTE | 2023-09-04 12:35 | PC.NURSE ---
This RN spoke with [place] from case management, plan for patient to go home today. She will be setting up an ambulance
--- NOTE | 2023-09-04 13:02 | MHC.CM.PN ---
DP: CM SPOKE WITH PT AND SPOUSE/CAREGIVER DILIP AND THEY WOULD LIKE TO RETURN HOME WITH RESUMPTION OF [facility]. RETURN REFERRAL SENT TO [facility]. S TRANSPORT BOOKED FOR 3:30 PM PER SPOUSE'S REQUEST VIA [facility]. RN MADE AWARE.
--- NOTE | 2023-09-04 13:59 | PC.NURSE ---
Patient sleeping, respirations even and unlabored, skin pwd, no apparent distress. Plan to send patient back to home via ambulance at 1530
== END 2023-09-04 16:01 | disposition home or self-care (01) ==
PROVIDERS: Physician Assistant Medical; Emergency Provider Emergency Medicine; PCP Internal Medicine
DX: R53.1 Weakness (principal); N39.0 Urinary tract infection, site not specified; B96.5 Pseudomonas (aeruginosa) (mallei) (pseudomallei) as the cause of diseases classified elsewhere; A04.72 Enterocolitis due to Clostridium difficile, not specified as recurrent; I48.91 Unspecified atrial fibrillation; N32.9 Bladder disorder, unspecified; K52.9 Noninfective gastroenteritis and colitis, unspecified; R00.0 Tachycardia, unspecified; Z20.822 Contact with and (suspected) exposure to COVID-19; Z20.828 Contact with and (suspected) exposure to other viral communicable diseases; R25.1 Tremor, unspecified; R26.81 Unsteadiness on feet; R29.6 Repeated falls; R60.0 Localized edema; I11.0 Hypertensive heart disease with heart failure; I50.32 Chronic diastolic (congestive) heart failure; I44.7 Left bundle-branch block, unspecified; R06.02 Shortness of breath; K90.0 Celiac disease; E03.8 Other specified hypothyroidism; I48.0 Paroxysmal atrial fibrillation; E66.9 Obesity, unspecified; Z68.41 Body mass index [BMI] 40.0-44.9, adult; Z90.49 Acquired absence of other specified parts of digestive tract; Z87.891 Personal history of nicotine dependence; Z79.01 Long term (current) use of anticoagulants; Z79.899 Other long term (current) drug therapy
CPT/HCPCS: 0241U; 36415; 70450; 74177; 80053; 81001; 82140; 83735; 85025; 85610; 85730; 87086; 87088; 87186; 87324; 87493; 87507; 93005; 96361; 96365; 96375; 96376; 99285; Q9967

== ENCOUNTER 2023-09-17 20:40 | Emergency (ER) | payer MEDICARE, BC, OTHER, SELFPAY ==
[2023-09-17 20:57] VITALS: BP 135/75; PULSE 97; O2SAT 95
[2023-09-17 21:06] VITALS: BP 120/68; PULSE 92; RESP 16; TEMP 37.1; O2SAT 90
[2023-09-17 21:08] VITALS: BP 121/60; PULSE 92; RESP 16; TEMP 37.1; O2SAT 91; BMI 86.5
--- NOTE | 2023-09-17 21:34 | PC.NURSE ---
pt changed into hospital attire and purewick placed. pt gluteal cleft was visualized and cleaned of urine and feces. buttocks appear red and macerated top of gluteal cleft has small approx 0.5cm circular open area with minor slough, small raised bump on right buttock next to cleft.
--- NOTE | 2023-09-17 23:02 | ED.GENADULT ---
HPI - General Adult General Chief complaint: Skin/Abscess/Foreign Body Stated complaint: BILAT BED SORES ON GLUTES,08/09 PAIN Time Seen by Provider: 09/17/23 21:55 Source: patient and family Mode of arrival: EMS History of Present Illness HPI narrative: 68-year-old female presents with concerns regarding the pain at her buttock area, but denies any fevers or chills and has been at bedside states that visiting nursing has been seeing the patient. Related Data Home Medications Medication Instructions Recorded Confirmed trazodone 150 mg tablet 225 mg PO BEDTIME 07/09/22 09/04/23 divalproex 250 mg tablet,delayed 250 mg PO BEDTIME 06/10/23 09/04/23 release divalproex 500 mg tablet,delayed 500 mg PO BID 06/10/23 09/04/23 release metoprolol succinate 50 mg 50 mg PO BEDTIME 06/29/23 09/04/23 tablet,extended release 24 hr eluxadoline 75 mg tablet (Viberzi) 75 mg PO BID 09/04/23 09/04/23 Previous Rx's Medication Instructions Recorded levothyroxine 150 mcg tablet 150 mcg PO DAILY for disorder of 06/10/23 thyroid gland 90 days #90 tabs rivaroxaban 20 mg tablet (Xarelto) 20 mg PO QPM #90 tabs 08/30/23 vancomycin 125 mg capsule 125 mg PO QID 14 days #56 caps 09/08/23 amoxicillin 875 mg-potassium 1 tab PO BID 10 days #20 tabs 09/09/23 clavulanate 125 mg tablet vancomycin 125 mg capsule 125 mg PO QID 10 days #40 caps 09/09/23 Allergies Allergy/AdvReac Type Severity Reaction Status Date / Time aspirin [ASA] Allergy Intermediate GI PAIN, Verified 09/01/23 14:30 upset stomach hazelnut Allergy Unknown Unknown Verified 09/01/23 14:30 shellfish derived Allergy Unknown Unknown Verified 09/01/23 14:30 gluten Allergy Unknown Verified 09/01/23 14:30 sesame seeds Allergy Unknown Unknown Uncoded 08/19/23 12:12 Review of Systems Review of Systems: Pertinent positives and negatives as stated in HPI PMFSH Past Medical History Source: nursing notes reviewed Medical History Hip pain, left Paroxysmal atrial fibrillation Morbid obesity due to excess calories Non-insulin dependent type 2 diabetes mellitus Pre-op evaluation Medication side effect Muscle stiffness Hospital discharge follow-up Weakness Leg edema SOB (shortness of breath) On anticoagulant therapy On beta carlos at home Bipolar 1 disorder Vertigo PTSD (post-traumatic stress disorder) History of cardioversion Arthritis Hypothyroidism History of wheezing Persistent atrial fibrillation Diabetes mellitus HTN (hypertension) LBBB (left bundle branch block) PAF (paroxysmal atrial fibrillation) Surgical History History of cardiac radiofrequency ablation History of eye surgery Hx of section Hx of colonoscopy Hx of cholecystectomy Hx of arthroscopy of right knee Family History Family History Father No problems noted. Mother No problems noted. Other Mental health disorder Substance use disorder Social History Social History Household Members: Family Household Members Other:: daughter + Housing: House Do you presently have visiting nurse or other home services: No Alcohol intake: former Patient Tobacco Use Status: Former Tobacco user Quit Date: 1989 e-Cigarette/Vaping Use: Never Used Second Hand Smoke Exposure: No Advance Directives: Yes Advance Directives on File: Yes Advance Directives Date on File: 06/29/23 service: No Current occupational status: employed Sexual orientation: Straight/Heterosexual Cognitive needs: No Hearing needs: No Vision needs: Yes Physical Exam ED Vital Signs: Vital Signs - 24 hr 09/17/23 21:06 09/17/23 21:08 09/17/23 23:45 Temperature 98.7 F 98.7 F 98.2 F Pulse Rate 92 92 98 Respiratory Rate 16 16 20 Blood Pressure 120/68 121/60 135/70 Pulse Oximetry 90 L 91 L Oxygen Delivery Method Room Air Room Air Room Air Oxygen Flow Rate 94 BMI result Body Mass Index 86.5 VITAL SIGNS: Reviewed. GENERAL: Well developed, well nourished, in no acute distress. HEAD: Normocephalic/atraumatic EYES: PERRLA, EOMI EARS: Ext canals without abnormality NOSE: Nares patent bilateral OROPHARYNX: no oral lesions noted, posterior pharynx clear NECK: Supple, no adenopathy LUNGS: Normal breath sounds. No adventitious sounds or accessory muscle use. SpO2<91> CARDIOVASCULAR: Regular rate and rhythm without noted murmurs, no JVD or lower extremity edema. ABDOMEN: Soft, non-tender, non-distended with bowel sounds. BUTTOCKS: I reviewed imaging obtained from the nursing staff, please see the note below, there is no significant ulceration or purulent drainage. MUSCULOSKELETAL: No tenderness, deformities, or effusions noted on gross inspection. EXTREMITIES: No cyanosis, clubbing or edema. SKIN: Inspection of the skin reveals no rashes NEUROLOGIC: Alert and oriented x 3. Medical Decision Making Medical Decision Making MDM Narrative: 68-year-old female with history and clinical presentation most consistent with moisture related skin breakdown to the gluteal cleft, there is no significant ulceration or purulence drainage. Both patient and has been will be instructed on correct placement of the peer wick as well as placing will should barrier cream and providing the patient with a referral to the Wound Care Center. Differential Diagnosis Differential Diagnoses: The differential diagnosis associated with the presentation includes Please see the discussion above Admission/Observation Consideration of admission/observation: Escalation of care including admission/observation considered Please see the discussion above External Record Review External record reviewed: Outpatient record, Prior outpatient labs and Prior outpatient radiology Discharge Plan Discharge Clinical Impression: Skin breakdown Patient Disposition: Home, Self-Care Instructions: Chronic Wounds (ED) Additional Instructions: 1. Resume all home medications as prescribed. 2. I have given you a referral to follow-up with [facility] wound care. 3. Follow-up with primary care doctor on Tuesday morning Return to the ER for any worsening symptoms. Prescriptions: No Action levothyroxine 150 mcg tablet 150 mcg PO DAILY 90 Days Qty: 90 1RF Xarelto 20 mg tablet 20 mg PO QPM Qty: 90 0RF vancomycin 125 mg capsule 125 mg PO QID 14 Days Qty: 56 0RF metoprolol succinate 50 mg tablet extended release 24 hr 50 mg PO BEDTIME Viberzi 75 mg tablet 75 mg PO BID amoxicillin-pot clavulanate 875-125 mg tablet 1 tab PO BID 10 Days Qty: 20 0RF vancomycin 125 mg capsule 125 mg PO QID 10 Days Qty: 40 0RF trazodone 150 mg tablet 225 mg PO BEDTIME divalproex 250 mg tablet,delayed release (DR/EC) 250 mg PO BEDTIME divalproex 500 mg tablet,delayed release (DR/EC) 500 mg PO BID Rx Instructions: 500 in the morning and 750 at night Referrals: [facility] Wound Care Management [Provider Group] Adithya Gutierrez MD [Primary Care Provider] -
[2023-09-17 23:45] VITALS: BP 135/70; PULSE 98; RESP 20; TEMP 36.8
--- NOTE | 2023-09-18 00:24 | PC.NURSE ---
This RN provided emily care/bed change, janeth simpson. Patient reporting having pain at buttocks where wounds are. This RN attempting to provide discharge instructions to patient and . reporting frustrated that patient will not be able to sleep tonight because of this. This RN explained at this time best options for management are keeping patient clean and dry, frequent reposition and barrier cream as well as tylenol and motrin. reports that patient sleeps in a recliner because she is unable to go up stairs where the bedroom is. Discuss with and she will go in and talk to patient and family.
--- NOTE | 2023-09-18 01:04 | MHC.EDTECH ---
call out to [facility] @0101 to book transport back home an eta of 30 mins was given by Phil from [facility]
== END 2023-09-18 02:10 | disposition home or self-care (01) ==
PROVIDERS: Emergency Provider Student in an Organized Health Care Education/Training Program; PCP Internal Medicine
DX: L98.411 Non-pressure chronic ulcer of buttock limited to breakdown of skin (principal); E11.9 Type 2 diabetes mellitus without complications; I11.0 Hypertensive heart disease with heart failure; I50.32 Chronic diastolic (congestive) heart failure; I48.0 Paroxysmal atrial fibrillation; Z79.02 Long term (current) use of antithrombotics/antiplatelets; Z79.899 Other long term (current) drug therapy
CPT/HCPCS: 99282; 99284

== ENCOUNTER 2023-09-29 17:50 | Inpatient (IN) | payer MEDICARE, BC, SELFPAY ==
--- NOTE | ~2023-09-29 | CT_ITS ---
EXAMINATION: CT ABDOMEN AND PELVIS WITH CONTRAST CLINICAL INFORMATION: Abdominal pain, sepsis COMPARISON: CT abdomen and pelvis 09/03/2023 TECHNIQUE: Multidetector volumetric images were obtained from the superior aspect of the liver through the pubic symphysis following administration 85 mL of Omnipaque 350 intravenous contrast. Sagittal and coronal reformatted images were obtained on the technologist's workstation. Oral contrast: No This CT examination was performed using dose optimization techniques as appropriate, variously including the following: *Automated exposure control *Adjustment of mA and/or kV according to patient size (this includes techniques or standardized protocols for targeted exams where dose is matched to indication/reason for exam; i.e. extremities or head) *Use of iterative reconstruction technique DLP: 1693 mGy-cm FINDINGS: There is motion artifact throughout the exam limiting evaluation. LUNG BASES: The visualized lung bases are unremarkable. LIVER, GALLBLADDER, AND BILIARY TREE: The liver is normal in size, shape, with a low-attenuation area in the left hepatic and right hepatic lobe on axial slice 18/3 no focal hepatic lesion or biliary ductal dilatation is present. There are surgical dayday in the right upper quadrant from previous cholecystectomy. PANCREAS: Unremarkable. SPLEEN: Unremarkable. ADRENAL GLANDS: Unremarkable. KIDNEYS AND URETERS: The kidneys are normal in size, shape, and attenuation. No hydronephrosis, hydroureter, or calculi seen. No perinephric stranding. BLADDER: There is mild bladder wall thickening with enhancing 1.2 cm nodule along the right posterior bladder wall and moderate bladder wall thickening along the base. No radiopaque calculi seen. GASTROINTESTINAL TRACT: There is scattered stool and gas seen throughout the colon without distention. The small bowel loops are normal caliber. Appendix is not seen. ABDOMINAL WALL: No significant hernia is appreciated. LYMPH NODES: Normal. VASCULAR: Unremarkable. PELVIC VISCERA: Unremarkable. OSSEOUS STRUCTURES: Mild degenerative disc changes with vacuum disc phenomena at L1-L2, L3-L4 disc levels. No aggressive lytic or sclerotic process. There is mild ventral spondylosis mid lumbar spine. CT/CT abdomen pelvis w IV con IMPRESSION: 1. No acute intra-abdominal process seen. 2. Mild bladder wall thickening with enhancing nodule along the right posterior bladder wall and moderate bladder wall thickening along the base. No change from the last exam. Recommend cystoscopy. 3. Low-attenuation area in the left and right hepatic lobe are stable. 4. Mild constipation. Fleischner guidelines were followed.
--- NOTE | ~2023-09-29 | XR_ITS ---
EXAMINATION: XR CHEST CLINICAL INFORMATION: Pain. COMPARISON: Chest radiograph 05/26/2021. TECHNIQUE: 2 views of the chest were obtained. FINDINGS: Examination is limited secondary to patient body habitus. Prominent cardiomediastinal silhouette with central vasculature engorgement. No focal consolidation, pleural effusion or pneumothorax. No acute osseous findings. Thoracic spondylosis. Visualized upper abdomen is within normal limits. XR/XR chest 2V IMPRESSION: Central vasculature engorgement could be seen with pulmonary hypertension/pulmonary edema. Otherwise, clear lungs.
--- NOTE | ~2023-09-29 | XR_ITS ---
EXAMINATION: XR CHEST CLINICAL INFORMATION: Shortness of breath COMPARISON: Previous chest x-ray most recent September 29, 2023 TECHNIQUE: Frontal view of the chest was obtained. FINDINGS: The cardiac silhouette is slightly enlarged but stable. There may be subsegmental atelectasis at the lung bases. The lungs are otherwise clear. No pleural effusion or pneumothorax. Degenerative changes of the spine. XR/XR chest 1V IMPRESSION: Subsegmental atelectasis at the lung bases.
[2023-09-29 18:12] VITALS: BP 140/80; PULSE 100; PULSE 121; RESP 18; TEMP 38.2; O2SAT 96; BMI 23.4
--- NOTE | 2023-09-29 18:55 | ED_ITS ---
HPI - General Adult General Chief complaint: Weakness Stated complaint: DIARRHEA X2HRS, PT WEAKER THAN NORMAL Time Seen by Provider: 09/29/23 17:54 Source: patient, RN notes reviewed and old records reviewed Mode of arrival: EMS Limitations: physical limitation History of Present Illness HPI narrative: 68-year-old female with past medical history significant for atrial fibrillation on Eliquis, irritable bowel syndrome with chronic diarrhea, recent C diff colitis, resting tremors, PTSD, bipolar disorder, CHF, hypertension, diabetes presents for evaluation of weakness. Per the patient's , who is bedside, the patient had diarrhea for the last 2 hours prior to arrival The patient's states that the patient has a more agitated than normal and weaker than usual He reports that she is usually able to stand and pivot to the commode both unable to do so today He states that when she is agitated her tremors get worse The patient is a very poor historian She will answer yes and no questions appropriately, but will not answer open ended questions. According to the , this is her baseline The patient took her last dose of vancomycin yesterday to treat C diff infection. She tested positive for C diff chain but was negative for the C diff toxin on 09/04 The said that she has had chronic diarrhea for much longer than this. Related Data Home Medications Medication Instructions Recorded Confirmed trazodone 150 mg tablet 225 mg PO BEDTIME 07/09/22 09/30/23 divalproex 250 mg tablet,delayed 250 mg PO BEDTIME 06/10/23 09/30/23 release divalproex 500 mg tablet,delayed 500 mg PO BID 06/10/23 09/30/23 release metoprolol succinate 50 mg 50 mg PO BEDTIME 06/29/23 09/30/23 tablet,extended release 24 hr eluxadoline 75 mg tablet (Viberzi) 75 mg PO BID 09/04/23 09/30/23 Previous Rx's Medication Instructions Recorded levothyroxine 150 mcg tablet 150 mcg PO DAILY for disorder of 06/10/23 thyroid gland 90 days #90 tabs rivaroxaban 20 mg tablet (Xarelto) 20 mg PO QPM #90 tabs 08/30/23 Allergies Allergy/AdvReac Type Severity Reaction Status Date / Time aspirin [ASA] Allergy Intermediate GI PAIN, Verified 09/01/23 14:30 upset stomach hazelnut Allergy Unknown Unknown Verified 09/01/23 14:30 shellfish derived Allergy Unknown Unknown Verified 09/01/23 14:30 gluten Allergy Unknown Verified 09/01/23 14:30 sesame seeds Allergy Unknown Unknown Uncoded 08/19/23 12:12 Review of Systems 2 Review of Systems: Yes Other (History limited due to mental status) Constitutional: Constitutional: Reports chills, Reports fever(s) and Reports weakness Cardiovascular: Cardiovascular: Denies chest pain and Denies dyspnea Respiratory: Respiratory: Denies dyspnea Gastrointestinal: Gastrointestinal: Denies abdominal pain, Reports diarrhea and Reports loose stools Musculoskeletal: Musculoskeletal: Denies back pain Integumentary/Breasts: Skin/Breast: Denies rash Neurologic: Reports weakness PMFSH Past Medical History Medical History Hip pain, left Paroxysmal atrial fibrillation Morbid obesity due to excess calories Non-insulin dependent type 2 diabetes mellitus Pre-op evaluation Medication side effect Muscle stiffness Hospital discharge follow-up Weakness Leg edema SOB (shortness of breath) On anticoagulant therapy On beta carlos at home Bipolar 1 disorder Vertigo PTSD (post-traumatic stress disorder) History of cardioversion Arthritis Hypothyroidism History of wheezing Persistent atrial fibrillation Diabetes mellitus HTN (hypertension) LBBB (left bundle branch block) PAF (paroxysmal atrial fibrillation) Surgical History History of cardiac radiofrequency ablation History of eye surgery Hx of section Hx of colonoscopy Hx of cholecystectomy Hx of arthroscopy of right knee Family History Family History Father No problems noted. Mother No problems noted. Other Mental health disorder Substance use disorder Social History Social History Household Members: Family Household Members Other:: daughter + Housing: House Do you presently have visiting nurse or other home services: No Alcohol intake: former Comment: patient fll asleep Patient Tobacco Use Status: Former Tobacco user Quit Date: 1989 Smoked in Last 30 Days: No e-Cigarette/Vaping Use: Never Used Second Hand Smoke Exposure: No Use of substances other than those prescribed or required for medical reasons: No Advance Directives: Yes Advance Directives on File: Yes Advance Directives Date on File: 06/29/23 service: No Current occupational status: employed Sexual orientation: Straight/Heterosexual Cognitive needs: No Hearing needs: No Vision needs: Yes Physical Exam ED Vital Signs: Vital Signs - 24 hr 09/29/23 18:12 09/29/23 18:57 09/29/23 20:17 Temperature 100.7 F H Pulse Rate 121 H 118 H 113 H Respiratory Rate 18 20 Blood Pressure 123/84 113/71 Pulse Oximetry 96 Oxygen Delivery Method Room Air 09/29/23 20:39 09/29/23 20:44 09/29/23 23:04 Temperature 102.3 F H 98.2 F Pulse Rate 146 H 124 H Respiratory Rate 15 18 Blood Pressure 125/66 125/66 114/85 Pulse Oximetry 96 92 Oxygen Delivery Method Room Air Room Air 09/30/23 00:19 Temperature Pulse Rate 78 Respiratory Rate 13 Blood Pressure 128/78 Pulse Oximetry 94 Oxygen Delivery Method Room Air BMI result Body Mass Index 23.4 Const General: cooperative and no acute distress Nutritional Appearance: obese Orientation/consciousness: oriented to person, oriented to place and oriented to time HENMT Head: Yes normocephalic and Yes atraumatic Eyes Periorbital: periorbital findings normal Eyelids: Yes eyelids normal EOM: EOMs intact bilaterally Resp Effort & Inspection: normal respiratory effort and able to speak in complete sentences Auscultation: clear to auscultation bilaterally Cardio Rate: abnormal rate and tachycardic Rhythm: abnormal rhythm and regular rhythm GI Palpation (GI): Soft to palpation, nontender and no guarding Neuro General: oriented to person, oriented to place and oriented to time Motor exam (neuro): Tremors during motor activity present (Bilateral upper and lower extremities) Psych Appearance: grossly normal Affect: normal affect Attitude: cooperative Course Reevaluation(s) Reevaluation #1: Patient has no leukocytosis but she has been on vancomycin up until yesterday. She was febrile to 100.7, suspected urosepsis, so will treat with ceftriaxone, or a straight cath. Patient was given IV fluid, she has no evidence of severe sepsis as she has not been hypotensive and her lactate is less than 4. Time: 20:08 Reevaluation #2: The patient has been incontinent multiple times, when nursing attempted to straight cath the patient, the patient was incontinent while she was being clean and she had stool all over. We are still awaiting straight cath urine sample. The patient's fever improved with antipyretics, she appears well, CT scan with no acute findings outside of bladder thickening consistent with cystitis. Time: 01:18 Medications Administered Discontinued Medications Generic Name Dose Route Start Last Admin Trade Name Janeth PRN Reason Stop Dose Admin Acetaminophen 975 mg 09/29/23 18:31 09/29/23 19:20 Acetaminophen 325 Mg Tablet PO 09/29/23 18:32 975 mg ONCE ONE Administration Sodium Chloride 1,000 mls @ 999 mls/hr 09/29/23 19:45 09/29/23 21:46 Ns IV 09/29/23 20:45 Infused .Q1H1M SELMA Infusion Ceftriaxone Sodium 1 gm/ 50 mls @ 100 mls/hr 09/29/23 20:06 09/29/23 21:46 Sodium Chloride IV 09/29/23 20:35 Infused ONCE ONE Infusion Sodium Chloride 1,000 mls @ 999 mls/hr 09/29/23 23:45 09/30/23 01:00 Ns IV 09/30/23 00:45 999 mls/hr .Q1H1M SELMA Administration Ibuprofen 600 mg 09/29/23 20:59 09/29/23 21:45 Ibuprofen Oral Susp 200 Mg/10 Ml Oral.Susp PO 09/29/23 21:00 Not Given ONCE ONE Iohexol 85 ml 09/29/23 22:21 09/29/23 22:22 Iohexol 350 Mg/Ml 100 Ml Infus..Btl IV 09/29/23 22:22 85 ml ONCE ONE Administration Lorazepam 1 mg 09/29/23 18:30 09/29/23 19:19 Lorazepam 2 Mg/Ml Vial IVPUSH 09/29/23 18:31 1 mg STAT STA Administration Medical Decision Making Medical Decision Making MDM Narrative: 68-year-old female with past medical history is documented above presents for evaluation of increased weakness, diarrhea. She has noted a fever of 100.7. She was recently treated for C diff is continue to have diarrhea. Plan for septic workup including labs, blood cultures, lactic acid, UA. The patient's also states the patient's groin was felt that she had multiple loose bowel movements and he is concerned that she may have a UTI. Patient is tachycardic better blood pressure is stable, she is not hypoxic Differential Diagnosis Differential Diagnoses: The differential diagnosis associated with the presentation includes UTI Diarrhea IBS C diff Sepsis Influenza COVID-19 Admission/Observation Consideration of admission/observation: Escalation of care including admission/observation considered Lab Data MDM Lab Attestation statement: I reviewed the patient's lab results. No leukocytosis, no anemia. Patient has a mild hyponatremia of 134. Renal function within normal limits. 09/29/23 19:13 09/29/23 21:06 Labs: Lab Results 09/29/23 09/29/23 09/29/23 Range/Units 19:13 21:06 22:27 WBC 7.8 (4.8-10.8) X10*3/uL RBC 4.18 L (4.20-5.50) X10*6/uL Hgb 13.0 (12.0-16.0) g/dl Hct 39.3 (37.0-47.0) % MCV 94.0 (80.0-98.0) fL MCH 31.1 (27.0-33.0) pg MCHC 33.1 (31.0-35.0) g/dl RDW 13.0 (11.0-16.0) % Plt Count 200 (160-400) X10*3/uL MPV 8.8 L (9.4-12.3) fL Immature Gran % (Auto) 0.5 H (0.0-0.4) % Neut % (Auto) 64.2 (45-73) % Lymph % (Auto) 22.5 (20-40) % Wheeler % (Auto) 11.0 (2-11) % Eos % (Auto) 1.4 (0-4) % Baso % (Auto) 0.4 (0-2) % Lymph # (Auto) 1.8 (1.2-4.9) X10*3/uL Wheeler # (Auto) 0.9 (0.1-1.2) X10*3/uL Eos # (Auto) 0.1 (0.0-0.4) X10*3/uL Baso # (Auto) 0.0 (0.0-0.2) X10*3/uL Abs Immat Gran (auto) 0.04 H (0.00-0.03) X10*3/uL Absolute Neuts (auto) 5.0 (2.0-8.3) x10*3/uL Absolute Nucleated RBC 0.000 (0.0-0.012) X10*3/uL Nucleated RBC % (auto) 0.0 (0.0-0.2) /100WBC Sodium 134 L (135-145) mmol/L Potassium 4.1 (3.3-5.1) mmol/L Chloride 101 (96-108) mmol/L Carbon Dioxide 25 (22-29) mmol/L Anion Gap 12 (12-20) BUN 7 L (9-16) mg/dL Creatinine 0.68 (0.5-1.4) mg/dL Estim Creat Clear Calc 67.2 Estimated GFR > 60 Random Glucose 139 H (60-115) mg/dL Lactic Acid 3.3 H* (0.5-2.0) mmol/L Lactic Acid F/U @ 2Hr 2.5 H* (0.5-2.0) mmol/L Lactic Acid F/U @ 4Hr (0.5-2.0) mmol/L Calcium 8.2 L D (8.4-10.2) mg/dL Total Bilirubin 0.4 (0.0-1.0) mg/dL AST 25 (5-31) U/L ALT 12 (0-31) U/L Alkaline Phosphatase 73 (39-117) U/L B-Natriuretic Peptide 230 H (<100) pg/mL Total Protein 6.9 (6.5-8.0) g/dL Albumin 3.0 L (3.5-5.0) g/dL Lipase 22 (8-78) U/L Influenza Type A (PCR) NEGATIVE (Negative) Influenza Type B (PCR) NEGATIVE (Negative) RSV RNA Qual (PCR) NEGATIVE (Negative) SARS-CoV-2 RNA (RT-PCR) NEGATIVE (Negative) 09/30/23 Range/Units 01:01 WBC (4.8-10.8) X10*3/uL RBC (4.20-5.50) X10*6/uL Hgb (12.0-16.0) g/dl Hct (37.0-47.0) % MCV (80.0-98.0) fL MCH (27.0-33.0) pg MCHC (31.0-35.0) g/dl RDW (11.0-16.0) % Plt Count (160-400) X10*3/uL MPV (9.4-12.3) fL Immature Gran % (Auto) (0.0-0.4) % Neut % (Auto) (45-73) % Lymph % (Auto) (20-40) % Wheeler % (Auto) (2-11) % Eos % (Auto) (0-4) % Baso % (Auto) (0-2) % Lymph # (Auto) (1.2-4.9) X10*3/uL Wheeler # (Auto) (0.1-1.2) X10*3/uL Eos # (Auto) (0.0-0.4) X10*3/uL Baso # (Auto) (0.0-0.2) X10*3/uL Abs Immat Gran (auto) (0.00-0.03) X10*3/uL Absolute Neuts (auto) (2.0-8.3) x10*3/uL Absolute Nucleated RBC (0.0-0.012) X10*3/uL Nucleated RBC % (auto) (0.0-0.2) /100WBC Sodium (135-145) mmol/L Potassium (3.3-5.1) mmol/L Chloride (96-108) mmol/L Carbon Dioxide (22-29) mmol/L Anion Gap (12-20) BUN (9-16) mg/dL Creatinine (0.5-1.4) mg/dL Estim Creat Clear Calc Estimated GFR Random Glucose (60-115) mg/dL Lactic Acid (0.5-2.0) mmol/L Lactic Acid F/U @ 2Hr (0.5-2.0) mmol/L Lactic Acid F/U @ 4Hr 1.8 (0.5-2.0) mmol/L Calcium (8.4-10.2) mg/dL Total Bilirubin (0.0-1.0) mg/dL AST (5-31) U/L ALT (0-31) U/L Alkaline Phosphatase (39-117) U/L B-Natriuretic Peptide (<100) pg/mL Total Protein (6.5-8.0) g/dL Albumin (3.5-5.0) g/dL Lipase (8-78) U/L Influenza Type A (PCR) (Negative) Influenza Type B (PCR) (Negative) RSV RNA Qual (PCR) (Negative) SARS-CoV-2 RNA (RT-PCR) (Negative) Discharge Plan Discharge Clinical Impression: Fever, Weakness Patient Disposition: Still a Patient Prescriptions: No Action levothyroxine 150 mcg tablet 150 mcg PO DAILY 90 Days Qty: 90 1RF Xarelto 20 mg tablet 20 mg PO QPM Qty: 90 0RF metoprolol succinate 50 mg tablet extended release 24 hr 50 mg PO BEDTIME Viberzi 75 mg tablet 75 mg PO BID trazodone 150 mg tablet 225 mg PO BEDTIME divalproex 250 mg tablet,delayed release (DR/EC) 250 mg PO BEDTIME divalproex 500 mg tablet,delayed release (DR/EC) 500 mg PO BID Rx Instructions: 500 in the morning and 750 at night
[2023-09-29 18:57] VITALS: BP 123/84; PULSE 118; RESP 20
[2023-09-29] MEDS: LORazepam 2 MG/ML VIAL 1 MG IVPUSH (19:19)
[2023-09-29] MEDS: Acetaminophen 325 MG TABLET 975 MG PO (19:20)
[2023-09-29 19:21] LABS: Basophils Percent Auto 0.4 % (0-2); Eosinophils Absolute Auto 0.1 X10*3/uL (0.0-0.4); Eosinophils Percent Auto 1.4 % (0-4); Hematocrit 39.3 % (37.0-47.0); Imm Gran Abs Auto 0.04 X10*3/uL (0.00-0.03); Imm Gran Pct Auto 0.5 % (0.0-0.4); Lymphocytes Absolute Auto 1.8 X10*3/uL (1.2-4.9); Lymphocytes Percent Auto 22.5 % (20-40); MANUAL DIFF FLAG NO; Mean Corpuscular HGB Conc 33.1 g/dl (31.0-35.0); Mean Corpuscular Hemoglobin 31.1 pg (27.0-33.0); Mean Platelet Volume 8.8 fL (9.4-12.3); Monocytes Absolute Auto 0.9 X10*3/uL (0.1-1.2); Neutrophils Percent Auto 64.2 % (45-73); Platelet Count 200 X10*3/uL (160-400); Red Blood Count 4.18 X10*6/uL (4.20-5.50); White Blood Count 7.8 X10*3/uL (4.8-10.8)
[2023-09-29 19:35] LABS: Lactic Acid 3.3 mmol/L (0.5-2.0)
[2023-09-29 19:44] LABS: B Type Natriuretic Peptide 230 pg/mL (<100)
[2023-09-29] MEDS: 0.9 % Sodium Chloride 1,000 ML 999 ML IV (20:10)
[2023-09-29 20:17] VITALS: BP 113/71; PULSE 113
[2023-09-29 20:39] VITALS: BP 125/66; PULSE 146; RESP 15; TEMP 39.1; O2SAT 96
[2023-09-29 20:44] VITALS: BP 125/66
[2023-09-29] MEDS: cefTRIAXone sodium 1 GM in 0.9 % Sodium Chloride 50 ML IV (21:00)
[2023-09-29 21:19] LABS: Reflex Lactate? Lactic Acid Added
[2023-09-29 21:45] LABS: Alanine Aminotransferase 12 U/L (0-31); Alkaline Phosphatase 73 U/L (39-117); Anion Gap 12 (12-20); Aspartate Amino Transferase 25 U/L (5-31); Bilirubin Total 0.4 mg/dL (0.0-1.0); Blood Urea Nitrogen 7 mg/dL (9-16); Calcium 8.2 mg/dL (8.4-10.2); Carbon Dioxide 25 mmol/L (22-29); Chloride 101 mmol/L (96-108); Creatinine Clr Calc Pharmacy 67.2; Estimated Glomerular Filt Rate > 60; Glucose Random 139 mg/dL (60-115); Lipase 22 U/L (8-78); Potassium 4.1 mmol/L (3.3-5.1); Sodium 134 mmol/L (135-145); Total Protein 6.9 g/dL (6.5-8.0)
--- NOTE | 2023-09-29 21:48 | PC.NURSE ---
Patients says ibuprofen hurts her stomach and Dr. Mendez doesn't want her taking it. he says ask Dr. Mendez if she can take it.
[2023-09-29 22:03] LABS: Influenza A PCR NEGATIVE (Negative); Influenza B PCR NEGATIVE (Negative); Resp Syncy Virus RNA Qual PCR NEGATIVE (Negative); SARS COV2 PCR INHOUSE NEGATIVE (Negative)
[2023-09-29] MEDS: iohexoL 350 MG/ML 100 ML INFUS..BTL 85 ML IV (22:22)
[2023-09-29 22:46] LABS: ~Lactic Acid-LAB USE ONLY 2.5 mmol/L (0.5-2.0)
[2023-09-29 23:04] VITALS: BP 114/85; PULSE 124; RESP 18; TEMP 36.8; O2SAT 92
[2023-09-30] VITALS (8 sets, daily range): BP systolic 95–129; BP diastolic 35–91; PULSE 78–111; RESP 12–25; TEMP 36.2–36.9; O2SAT 93–99
--- NOTE | 2023-09-30 00:24 | PC.NURSE ---
Took over care from RN Grover, pt incontinent of stool and urine, straight cath still pending from prior shift, ISABELLA Perera aware, attempted to collect, pt incontinent of urine. Unable to collect at this time. pt place on bedside monitor. Complete emily-care and bed chaage.
[2023-09-30 00:31] LABS: Reflex Lactate? 2 Y
[2023-09-30] MEDS: 0.9 % Sodium Chloride 1,000 ML 999 ML IV (01:00)
[2023-09-30 01:14] LABS: ~Lactic Acid-LAB USE ONLY 1.8 mmol/L (0.5-2.0)
--- NOTE | 2023-09-30 02:20 | PM.IMHP ---
History of Present Illness Date of Service: 09/30/23 Chief Complaint: ams, diarrhea 68F PMH HTN, paroxysmal afib, bipolar, cdif colonizer, IBS, ?DM, hypothyroid, presented with ams, diarrhea, fever. patient with chronic diarrhea, was recently treated for uti and given concomitant vanco for cdif colonization. just finished course and started to have diarreha again, weakness, difficulty ambulating. called EMS. in ED noted to be septic, fever 102.3, afib with rvr 146. ct abd with possible cystitis, unable to obtain UA. patient currently lethargic, poor historian, no specific complaints. lives at home with , reports normally ambulates with walker, but very weak now. Review of Systems Review of Systems: Yes all other systems are reviewed and are negative [facility] Medical History Hip pain, left Paroxysmal atrial fibrillation Morbid obesity due to excess calories Non-insulin dependent type 2 diabetes mellitus Pre-op evaluation Medication side effect Muscle stiffness Hospital discharge follow-up Weakness Leg edema SOB (shortness of breath) On anticoagulant therapy On beta carlos at home Bipolar 1 disorder Vertigo PTSD (post-traumatic stress disorder) History of cardioversion Arthritis Hypothyroidism History of wheezing Persistent atrial fibrillation Diabetes mellitus HTN (hypertension) LBBB (left bundle branch block) PAF (paroxysmal atrial fibrillation) Family History Father No problems noted. Mother No problems noted. Other Mental health disorder Substance use disorder Surgical History History of cardiac radiofrequency ablation History of eye surgery Hx of section Hx of colonoscopy Hx of cholecystectomy Hx of arthroscopy of right knee Social History Household Members: Family Household Members Other:: daughter + Housing: House Do you presently have visiting nurse or other home services: No Alcohol intake: former Comment: patient fll asleep Patient Tobacco Use Status: Former Tobacco user Quit Date: 1989 Smoked in Last 30 Days: No e-Cigarette/Vaping Use: Never Used Second Hand Smoke Exposure: No Use of substances other than those prescribed or required for medical reasons: No Advance Directives: Yes Advance Directives on File: Yes Advance Directives Date on File: 06/29/23 service: No Current occupational status: employed Sexual orientation: Straight/Heterosexual Cognitive needs: No Hearing needs: No Vision needs: Yes Meds Allergies Allergy/AdvReac Type Severity Reaction Status Date / Time aspirin [ASA] Allergy Intermediate GI PAIN, Verified 09/01/23 14:30 upset stomach hazelnut Allergy Unknown Unknown Verified 09/01/23 14:30 shellfish derived Allergy Unknown Unknown Verified 09/01/23 14:30 gluten Allergy Unknown Verified 09/01/23 14:30 sesame seeds Allergy Unknown Unknown Uncoded 08/19/23 12:12 Active Medications: Current Medications Divalproex Sodium (Divalproex Sodium 250 Mg Tablet.) 250 mg PO BEDTIME SELMA Divalproex Sodium (Divalproex Sodium 500 Mg Tablet.) 500 mg PO BID SELAM Levothyroxine Sodium (Levothyroxine Sodium 150 Mcg Tablet) 150 mcg PO DAILY SELMA Metoprolol Succinate (Metoprolol Succinate Er 50 Mg Tab.Er.24h) 50 mg PO BEDTIME SELMA; Protocol Non-Formulary Medication (Eluxadoline [Viberzi]) 75 mg PO BID SELMA Rivaroxaban (Rivaroxaban 20 Mg Tablet) 20 mg PO QPM SELMA Trazodone HCl (Trazodone Hcl 25 Mg Halftab) 225 mg PO BEDTIME [facility] Home Medications Medication Instructions Recorded Confirmed Last Taken Type trazodone 150 mg tablet 225 mg PO BEDTIME 07/09/22 09/30/23 06/28/23 History divalproex 250 mg tablet,delayed 250 mg PO BEDTIME 06/10/23 09/30/23 06/28/23 History release divalproex 500 mg tablet,delayed 500 mg PO BID 06/10/23 09/30/23 06/29/23 History release metoprolol succinate 50 mg 50 mg PO BEDTIME 06/29/23 09/30/23 06/28/23 History tablet,extended release 24 hr eluxadoline 75 mg tablet (Viberzi) 75 mg PO BID 09/04/23 09/30/23 Unknown History Physical Exam Vital Signs and Narrative: Vital Signs: Last Vital Signs Temp 98.2 F 09/29/23 23:04 Pulse 108 H 09/30/23 02:16 Resp 16 09/30/23 02:16 BP 117/74 09/30/23 02:16 Pulse Ox 93 09/30/23 02:16 O2 Del Method Room Air 09/30/23 02:16 BMI result Body Mass Index 23.4 General: lethargic O X 3, no acute distress Resp: CTA bilateral, no accessory muscles used CVS: S1,S2, irregular, rapid GI: soft, non tender, non distended Neuro: motor grossly intact, alert Psych: flat affect, questionable insight Results Labs 09/29/23 19:13 09/29/23 21:06 Labs: Laboratory Results - last 24 hr 09/29/23 09/29/23 09/29/23 19:13 21:06 22:27 MCV 94.0 MCH 31.1 MCHC 33.1 RDW 13.0 Plt Count 200 MPV 8.8 L Immature Gran % (Auto) 0.5 H Neut % (Auto) 64.2 Lymph % (Auto) 22.5 [place] % (Auto) 11.0 Eos % (Auto) 1.4 Baso % (Auto) 0.4 Lymph # (Auto) 1.8 [place] # (Auto) 0.9 Eos # (Auto) 0.1 Baso # (Auto) 0.0 Abs Immat Gran (auto) 0.04 H Absolute Neuts (auto) 5.0 Absolute Nucleated RBC 0.000 Nucleated RBC % (auto) 0.0 Anion Gap 12 Estim Creat Clear Calc 67.2 Estimated GFR > 60 Random Glucose 139 H Lactic Acid 3.3 H* Lactic Acid F/U @ 2Hr 2.5 H* Lactic Acid F/U @ 4Hr Calcium 8.2 L D Total Bilirubin 0.4 AST 25 ALT 12 Alkaline Phosphatase 73 B-Natriuretic Peptide 230 H Total Protein 6.9 Albumin 3.0 L Lipase 22 Influenza Type A (PCR) NEGATIVE Influenza Type B (PCR) NEGATIVE RSV RNA Qual (PCR) NEGATIVE SARS-CoV-2 RNA (RT-PCR) NEGATIVE 09/30/23 01:01 MCV MCH MCHC RDW Plt Count MPV Immature Gran % (Auto) Neut % (Auto) Lymph % (Auto) [place] % (Auto) Eos % (Auto) Baso % (Auto) Lymph # (Auto) [place] # (Auto) Eos # (Auto) Baso # (Auto) Abs Immat Gran (auto) Absolute Neuts (auto) Absolute Nucleated RBC Nucleated RBC % (auto) Anion Gap Estim Creat Clear Calc Estimated GFR Random Glucose Lactic Acid Lactic Acid F/U @ 2Hr Lactic Acid F/U @ 4Hr 1.8 Calcium Total Bilirubin AST ALT Alkaline Phosphatase B-Natriuretic Peptide Total Protein Albumin Lipase Influenza Type A (PCR) Influenza Type B (PCR) RSV RNA Qual (PCR) SARS-CoV-2 RNA (RT-PCR) Imaging Radiologist's Impressions: Impressions Chest X-Ray 09/29/23 20:05 IMPRESSION: Central vasculature engorgement could be seen with pulmonary hypertension/pulmonary edema. Otherwise, clear lungs. Abdomen/Pelvis CT 09/29/23 22:24 IMPRESSION: 1. No acute intra-abdominal process seen. 2. Mild bladder wall thickening with enhancing nodule along the right posterior bladder wall and moderate bladder wall thickening along the base. No change from the last exam. Recommend cystoscopy. 3. Low-attenuation area in the left and right hepatic lobe are stable. 4. Mild constipation. Fleischner guidelines were followed. Assessment and Plan (1) Weakness: Status: Acute Plan 68F PMH HTN, paroxysmal afib, bipolar, cdif colonizer, IBS, ?DM, hypothyroid, presented with ams, diarrhea, fever. sepsis and acute metabolic encephalopathy likely due to acute UTI (awaiting UA), ct with signs of cystitis previous culture with pseudomonas will treat empirically with cefepime PT eval acute and chronic diarrhea with history of cdif colonization doubt acute cdif, will hold off on meds follow up stool studies ? history of DM, not on meds check a1c paroxysmal afib with rvr toprol, xarelto bipolar depakote htn toprol hypothyroid synthroid dvt prophylaxis - xarelto full code patient with sepsis, at risk for further decompensation due to poor functional resever, therefore, expected to require atleast 2 midnights inpatient. Quality Stroke Does the patient have a stroke diagnosis?: No VTE Prior VTE?: No VTE Risk Level:: Medical - moderate - high VTE Device Contraindication: Treatment Not Indicated VTE Drug Contraindication: N/A - Med Ordered
[2023-09-30 02:44] LABS: Appearance Urine Clear; Color Urine Yellow; Glucose Urine UA Negative (Negative); Leukocyte Esterase Urine Moderate (2+) (Negative); Nitrite Urine Negative (Negative); Specific Gravity - Urine 1.025 (1.005-1.025); UMIC TRIGGER UACC YES; Urine Blood Negative (Negative); Urine Ketones Negative (Negative); Urine Protein Negative (Neg-Trace)
[2023-09-30 02:46] LABS: Bacteria Urine None Seen (None Seen); Hyaline Casts Urine 0-2 /LPF (0-2); RBC Urine 0-2 /HPF (0-2); Squamous Epithelial Cell Urine 0-2 /HPF (0-2); UACC Culture Trigger YES
[2023-09-30] MEDS: cefEPime HCl 1 GM in 0.9 % Sodium Chloride 50 ML IV ×3 (03:22→17:51)
[2023-09-30] MEDS: Metoprolol Succinate ER 50 MG TAB.ER.24H PO ×2 (03:23→21:15)
[2023-09-30] MEDS: Rivaroxaban 20 MG TABLET PO ×2 (03:23→17:49)
--- NOTE | 2023-09-30 06:06 | PC.NURSE ---
emily care completed, complete bed change, pt reposition for comfort, medicated per Mar.
--- NOTE | 2023-09-30 06:06 | PC.NURSE ---
Iv infiltrated from prior shift, Iv ultrasound placed By Dr. Mills
[2023-09-30] MEDS: Levothyroxine Sodium 150 MCG TABLET PO (06:45)
[2023-09-30 07:20] LABS: Estimated Average Glucose 140 mg/dL; Hemoglobin A1c % 6.5 % (<6.0)
--- NOTE | 2023-09-30 07:44 | PHA.MEDREC ---
Pharmacy Consult ? Medication Reconciliation Pharmacy has completed the medication reconciliation. MED REC CHECKING IN AM
[2023-09-30] MEDS: Divalproex Sodium 500 MG TABLET.DR PO ×2 (09:57→21:17)
--- NOTE | 2023-09-30 11:54 | PM.EVENT ---
Event Note Date of Service: 09/30/23 Event Note: Pt admitted this morning, seen/examined, labs, meds, imaging reviewed. She has chronic diarrhea and has been treated in the past for Cdif, but has persistent diarrhea. Also has UTI with history of Pseudomonas in urine and is on cefepime. gi panel pending, holding off treatment for cdif, and id consult Time Spent With Patient Time: Total time managing care of this patient today ____ minutes.
[2023-09-30 13:25] LABS: Adenovirus F 40/41 Not Detected (Not Detect.); Astrovirus Not Detected (Not Detect.); Campylobacter Not Detected (Not Detect.); Cryptosporidium Not Detected (Not Detect.); Cyclospora cayetanensis Not Detected (Not Detect.); E. coli EAEC Not Detected (Not Detect.); E. coli EPEC Not Detected (Not Detect.); E. coli ETEC Not Detected (Not Detect.); E. coli STEC Not Detected (Not Detect.); Entamoeba histolytica Not Detected (Not Detect.); Giardia lamblia Not Detected (Not Detect.); Norovirus GI/GII Not Detected (Not Detect.); Plesiomonas shigelloides Not Detected (Not Detect.); Rotavirus A Not Detected (Not Detect.); Salmonella Not Detected (Not Detect.); Sapovirus Not Detected (Not Detect.); Shigella sp./EIEC Not Detected (Not Detect.); Vibrio Not Detected (Not Detect.); Vibrio Cholerae Not Detected (Not Detect.); Yersinia enterocolitica Not Detected (Not Detect.)
--- NOTE | 2023-09-30 16:08 | MHC.CM.PN ---
PT REPORTS SHE LIVES AT HOME WITH HER AND DAUGHTER KENJI SHE REPORTS SHE IS INDEPENDENT WITH CARE AT [facility]EL[facility] AND HAS NO SERVICES PT STATES SHE USES A WALKER TO AMBULATE HCP ON FILE PCP: CARMEN LUCAS TASK SENT TO CM OFFICE TO CORRECT PCP LISTED IMM DELIVERED DCP: HOME NO SERVICES VIA [facility] CM FOLLOWING FOR CHANGING DC NEEDS
--- NOTE | 2023-09-30 19:11 | PC.NURSE ---
assumed care of pt
[2023-09-30] MEDS: oxyCODONE HCl Immed Release 5 MG TABLET PO (21:14)
[2023-09-30] MEDS: traZODone HCL 25 MG HALFTAB 225 MG PO (21:14)
[2023-09-30] MEDS: Divalproex Sodium 250 MG TABLET.DR PO (21:17)
[2023-10-01] VITALS (12 sets, daily range): BP systolic 92–153; BP diastolic 65–108; PULSE 86–151; RESP 18–27; TEMP 36.5–37.3; O2SAT 89–97
--- NOTE | 2023-10-01 | ECG_ITS ---
Test Reason : irregular HR Blood Pressure : / mmHG Vent. Rate : 156 BPM Atrial Rate : 000 BPM P-R Int : 000 ms QRS Dur : 120 ms QT Int : 326 ms P-R-T Axes : 000 -52 142 degrees QTc Int : 525 ms Atrial fibrillation with rapid ventricular response Left axis deviation Non-specific intra-ventricular conduction delay ST & T wave abnormality, consider lateral ischemia Abnormal ECG When compared with ECG of 04-SEP-2023 11:38, Vent. rate has increased BY 67 BPM Referred By: Dariusz Blair Electronically Signed By:TC LEWIS MD
[2023-10-01] MEDS: cefEPime HCl 1 GM in 0.9 % Sodium Chloride 50 ML IV ×3 (01:55→17:56)
[2023-10-01] MEDS: Levothyroxine Sodium 150 MCG TABLET PO (06:09)
[2023-10-01 06:34] LABS: Anion Gap 13 (12-20); Blood Urea Nitrogen 10 mg/dL (9-16); Calcium 8.4 mg/dL (8.4-10.2); Carbon Dioxide 26 mmol/L (22-29); Chloride 108 mmol/L (96-108); Creatinine Clr Calc Pharmacy 70.4; Estimated Glomerular Filt Rate > 60; Glucose Fasting 123 mg/dL (60-99); Magnesium 2.1 mg/dL (1.6-2.6); Potassium 4.1 mmol/L (3.3-5.1); Sodium 143 mmol/L (135-145)
[2023-10-01 06:44] LABS: Hematocrit 35.2 % (37.0-47.0); Hemoglobin 11.2 g/dl (12.0-16.0); Mean Corpuscular HGB Conc 31.8 g/dl (31.0-35.0); Mean Corpuscular Hemoglobin 31.1 pg (27.0-33.0); Mean Corpuscular Volume 97.8 fL (80.0-98.0); Mean Platelet Volume 9.4 fL (9.4-12.3); Platelet Count 163 X10*3/uL (160-400); Red Cell Distribution Width 13.4 % (11.0-16.0); White Blood Count 6.6 X10*3/uL (4.8-10.8)
[2023-10-01 09:14] LABS: Appearance Urine Hazy; Color Urine Yellow; Glucose Urine UA Negative (Negative); Leukocyte Esterase Urine Small (1+) (Negative); Nitrite Urine Negative (Negative); Specific Gravity - Urine 1.025 (1.005-1.025); UMIC TRIGGER UA YES; Urine Blood Moderate (2+) (Negative); Urine Ketones Trace mg/dL (Negative); Urine Protein Trace mg/dL (Neg-Trace)
[2023-10-01 09:20] LABS: Bacteria Urine None Seen (None Seen); Hyaline Casts Urine 0-2 /LPF (0-2); WBC Urine >50 /HPF (0-5)
[2023-10-01] MEDS: Divalproex Sodium 500 MG TABLET.DR PO ×2 (10:14→20:34)
--- NOTE | 2023-10-01 11:00 | PC.NURSE ---
assumed care of patient at 1100. Patient is laying in bed, resting comfortably, respirations equal and unlabored, skin pwd, alert and oriented x4. Spouse at bedside. IV repositioned for patency. Purewick draining appropriately at this time. Patient aware of plan of care to admit for further management. Pt offers no complaints to this RN at this time
--- NOTE | 2023-10-01 11:28 | P.PNIM_ITS ---
Subjective Subjective Date of Service: 10/01/23 Interval History: oveall better, less diarrhea, no fever Physical Exam 2 Vital Signs: Vital Signs: Last Vital Signs Temp 99.2 F 10/01/23 10:59 Pulse 87 10/01/23 10:59 Resp 20 10/01/23 10:59 BP 122/80 10/01/23 10:59 Pulse Ox 97 10/01/23 10:59 O2 Del Method Nasal Cannula 10/01/23 10:59 O2 Flow Rate 2 10/01/23 10:59 BMI result Body Mass Index 23.4 Const: Other: General: AO X 3, no acute distress Resp: CTA bilateral CVS: S1,S2,RRR GI: +BS, NT, no distention Skin: No rash Neuro: motor grossly intact Psych: appropriate affect Objective Data Active Medications Divalproex Sodium (Divalproex Sodium 250 Mg Tablet.) 250 mg PO BEDTIME REPLACED BY [facility] Last Admin: 09/30/23 21:17 Dose: 250 mg Documented By: CEDRIC Divalproex Sodium (Divalproex Sodium 500 Mg Tablet.) 500 mg PO BID REPLACED BY [facility] Last Admin: 10/01/23 10:14 Dose: 500 mg Documented By: MINGO Cefepime HCl 1 gm/ Sodium (Chloride) 50 mls @ 100 mls/hr IV Q8H REPLACED BY [facility] Last Infusion: 10/01/23 11:00 Dose: Infused Documented By: DARRELL Levothyroxine Sodium (Levothyroxine Sodium 150 Mcg Tablet) 150 mcg PO DAILY@0600 REPLACED BY [facility] Last Admin: 10/01/23 06:09 Dose: 150 mcg Documented By: CEDRIC Metoprolol Succinate (Metoprolol Succinate Er 50 Mg Tab.Er.24h) 50 mg PO BEDTIME REPLACED BY [facility]; Protocol Last Admin: 09/30/23 21:15 Dose: 50 mg Documented By: CEDRIC Non-Formulary Medication (Eluxadoline [Viberzi]) 75 mg PO BID REPLACED BY [facility] Oxycodone HCl (Oxycodone Hcl Immed Release 5 Mg Tablet) 5 mg PO Q4H PRN PRN Reason: Pain, Moderate(Pain Scale 4-6) Last Admin: 09/30/23 21:14 Dose: 5 mg Documented By: CEDRIC Rivaroxaban (Rivaroxaban 20 Mg Tablet) 20 mg PO DAILY@1700 REPLACED BY [facility] Last Admin: 09/30/23 17:49 Dose: 20 mg Documented By: IFTIKHAR Trazodone HCl (Trazodone Hcl 25 Mg Halftab) 225 mg PO BEDTIME REPLACED BY [facility] Last Admin: 09/30/23 21:14 Dose: 225 mg Documented By: CEDRIC Labs 10/01/23 05:45 10/01/23 05:45 Labs: Laboratory Results - last 24 hr 09/29/23 10/01/23 10/01/23 21:06 05:45 08:56 MCV 97.8 MCH 31.1 MCHC 31.8 RDW 13.4 Plt Count 163 MPV 9.4 Absolute Nucleated RBC 0.000 Nucleated RBC % (auto) 0.0 Anion Gap 13 Estim Creat Clear Calc 70.4 Estimated GFR > 60 Fasting Glucose 123 H Calcium 8.4 Magnesium 2.1 Urine Color Yellow Urine Appearance Hazy Urine pH 6.0 Ur Specific [place] 1.025 Urine Protein Trace Urine Glucose (UA) Negative Urine Ketones Trace Urine Blood Moderate (2+) H Urine Nitrite Negative Ur Leukocyte Esterase Small (1+) H Urine RBC 11-20 H Urine WBC >50 H Ur Squamous Epith Cells 3-5 Urine Bacteria None Seen Hyaline Casts 0-2 Stl C. cayetanensis PCR Not Detected Stool Rotavirus A PCR Not Detected Stl Adenov F 40/41 PCR Not Detected Stool Astrovirus (PCR) Not Detected Stool Campylobacter PCR Not Detected Stool Cryptosporidium PCR Not Detected Stl Sh Tox Pr E STEC PCR Not Detected Stool E coli O157 PCR Not applicable Stl Enterotoxigenic E PCR Not Detected Stool EPEC (PCR) Not Detected Stool EAEC (PCR) Not Detected Stl E. histolytica PCR Not Detected Stool Giardia Lamblia PCR Not Detected Stl P. shigelloides PCR Not Detected Stool Salmonella PCR Not Detected Stool Sapovirus (PCR) Not Detected Stl Shigella/EIEC PCR Not Detected St Y.enterocolitica PCR Not Detected Stool Vibrio (PCR) Not Detected Stl Vibrio cholerae PCR Not Detected Stl Norovirus GI/GII PCR Not Detected Microbiology Microbiology Results: Microbiology 09/29/23 21:06 Blood Culture - Preliminary Blood - Venous No growth after 24 hours. 09/29/23 19:12 Blood Culture - Preliminary Blood - Venous No growth after 24 hours. Assessment and Plan (1) Weakness: Status: Acute Plan 68F PMH HTN, paroxysmal afib, bipolar, cdif colonizer, IBS, ?DM, hypothyroid, presented with ams, diarrhea, fever. sepsis and acute metabolic encephalopathy likely due to acute UTI, culture pending has recent history of Pseudomoas andct with signs of cystitis will treat empirically with cefepime acute and chronic diarrhea with history of cdif colonization doubt acute cdif, will hold off on meds follow up stool studies, stool count seem less ? history of DM, not on meds A1C of 6.5, diabetic diet, fasting sugar only 123, poc daily in am paroxysmal afib with rvr toprol, xarelto bipolar depakote htn toprol hypothyroid synthroid dvt prophylaxis - xarelto Gen weakness full code need for inpatient, sepsis, at risk for further decompensation due to poor functional reseve and awaiting culture result, would not want to go to [facility] Stroke Does the patient have a stroke diagnosis?: No VTE Prior VTE?: No VTE Risk Level:: Medical - moderate - high VTE Device Contraindication: Treatment Not Indicated VTE Drug Contraindication: N/A - Med Ordered
[2023-10-01 12:21] LABS: Glucose, Whole Blood 145 mg/dL (60-115)
[2023-10-01] MEDS: Rivaroxaban 20 MG TABLET PO (17:56)
[2023-10-01] MEDS: Metoprolol Succinate ER 50 MG TAB.ER.24H PO (20:34)
[2023-10-01] MEDS: Divalproex Sodium 250 MG TABLET.DR PO (20:34)
[2023-10-01] MEDS: dilTIAZem HCL 50 MG/10 ML VIAL 15 MG IVPUSH (20:36)
[2023-10-01] MEDS: traZODone HCL 25 MG HALFTAB 225 MG PO (21:03)
[2023-10-01 22:14] LABS: CDiff Gene PCR NEGATIVE (Negative)
[2023-10-02 00:44] VITALS: BP 101/63; PULSE 103; RESP 20; TEMP 36.9; O2SAT 98
[2023-10-02] MEDS: cefEPime HCl 1 GM in 0.9 % Sodium Chloride 50 ML IV ×3 (03:13→17:20)
[2023-10-02 03:37] VITALS: BP 115/80; PULSE 99; RESP 19; TEMP 37.3; O2SAT 96
[2023-10-02] MEDS: Levothyroxine Sodium 150 MCG TABLET PO (05:47)
[2023-10-02 07:51] VITALS: BP 131/75; PULSE 93; RESP 20; TEMP 36.1; O2SAT 97
[2023-10-02 08:01] LABS: Glucose, Whole Blood 123 mg/dL (60-115)
[2023-10-02] MEDS: Divalproex Sodium 500 MG TABLET.DR PO ×2 (09:13→21:43)
[2023-10-02 11:18] LABS: Glucose, Whole Blood 145 mg/dL (60-115)
--- NOTE | 2023-10-02 12:39 | HO.PM.IMPN ---
Subjective Subjective Date of Service: 10/02/23 Interval History: seen and examined this morning follow up for UTI, encephalopathy, diarrhea acute on chronic diarrhea multiple times per day, recently completed 14 day course of po vanco alert but slow to answer questions no abdominal pain Review of Systems Review of Systems: Yes all other systems are reviewed and are negative Constitutional Constitutional: Denies chills and Denies fever(s) Cardiovascular Cardiovascular: Denies chest pain Gastrointestinal Gastrointestinal: Denies abdominal pain, Reports diarrhea and Denies vomiting Physical Exam Vital Signs: Vital Signs: Last Vital Signs Temp 96.9 F 10/02/23 07:51 Pulse 93 10/02/23 07:51 Resp 20 10/02/23 07:51 BP 131/75 10/02/23 07:51 Pulse Ox 97 10/02/23 07:51 O2 Del Method Nasal Cannula 10/02/23 07:51 O2 Flow Rate 2 10/02/23 07:51 BMI result Body Mass Index 23.4 Const: Other: slow to respond to questions but answering appropriately General: cooperative, comfortable, no acute distress, alert and awake Nutritional Appearance: overweight Orientation/consciousness: oriented to person and oriented to place Resp: Effort & Inspection: normal respiratory effort, able to speak in complete sentences, no respiratory distress and no use of accessory muscles Cardio: Rate: regular rate GI: Inspection: No distended Palpation (GI): Soft to palpation and nontender Neuro: General: oriented to person, oriented to place, moves all extremities and CN's II-XI intact bilaterally Extrem: General: Yes no pedal edema Objective Data Active Medications Divalproex Sodium (Divalproex Sodium 250 Mg Tablet.) 250 mg PO BEDTIME [facility] Last Admin: 10/01/23 20:34 Dose: 250 mg Documented By: MOOKIE Divalproex Sodium (Divalproex Sodium 500 Mg Tablet.) 500 mg PO BID [facility] Last Admin: 10/02/23 09:13 Dose: 500 mg Documented By: JOS Cefepime HCl 1 gm/ Sodium (Chloride) 50 mls @ 100 mls/hr IV Q8H [facility] Last Infusion: 10/02/23 09:47 Dose: Infused Documented By: JOS Levothyroxine Sodium (Levothyroxine Sodium 150 Mcg Tablet) 150 mcg PO DAILY@0600 [facility] Last Admin: 10/02/23 05:47 Dose: 150 mcg Documented By: MOOKIE Metoprolol Succinate (Metoprolol Succinate Er 50 Mg Tab.Er.24h) 50 mg PO BEDTIME [facility]; Protocol Last Admin: 10/01/23 20:34 Dose: 50 mg Documented By: MOOKIE Non-Formulary Medication (Eluxadoline [Viberzi]) 75 mg PO BID [facility] Oxycodone HCl (Oxycodone Hcl Immed Release 5 Mg Tablet) 5 mg PO Q4H PRN PRN Reason: Pain, Moderate(Pain Scale 4-6) Last Admin: 09/30/23 21:14 Dose: 5 mg Documented By: CEDRIC Rivaroxaban (Rivaroxaban 20 Mg Tablet) 20 mg PO DAILY@1700 [facility] Last Admin: 10/01/23 17:56 Dose: 20 mg Documented By: JOS Trazodone HCl (Trazodone Hcl 25 Mg Halftab) 225 mg PO BEDTIME [facility] Last Admin: 10/01/23 21:03 Dose: 225 mg Documented By: MOOKIE Labs 10/01/23 05:45 10/01/23 05:45 Labs: Laboratory Results - last 24 hr 10/01/23 10/02/23 10/02/23 21:00 07:53 11:04 POC Glucose 123 H 145 H C. difficile Tox B Gene NEGATIVE Microbiology Microbiology Results: Microbiology 09/29/23 21:06 Blood Culture - Preliminary Blood - Venous No growth after 48 hours. 09/29/23 19:12 Blood Culture - Preliminary Blood - Venous No growth after 48 hours. 09/30/23 Unknown Urine Culture - Final Urine clean catch - Urine montanez top No growth. Assessment and Plan (1) Diarrhea: Status: Acute (2) Fever: Status: Acute Plan 68F PMH HTN, paroxysmal afib, bipolar, cdif colonizer, IBS, ?DM, hypothyroid, presented with ams, diarrhea, fever with concern for sepsis due to UTI sepsis and acute metabolic encephalopathy met sepsis criteria with fever and tachycardia, no leukocytosis initially thought to be related to UTI, has recent history of Pseudomoas and ct with signs of cystitis - but urine culture negative (reportedly recently treated for UTI ? r/t recent abx) will continue cefepime for now given presentation with Sepsis and pt seems to be improving with current management, ID eval pending flu, covid, RSV negative; CXR negative for pna acute and chronic diarrhea with history of cdif colonization recently completed 14 days of po vanco stool panel negative, cdif negative family reports significant persistent diarrhea at baseline h/o celiac - add gluten free restriction to diet follows outpatient with GI for diarrhea, has been on cholestyramine and currently on Viberzi only one stool thus far today, seems to be improving bladder nodule and thickening will need outpatient cystoscopy history of DM A1C of 6.5, diet controlled diabetic diet follow POCs paroxysmal afib with rvr HR elevated overnight, got a dose of IV cardizem HR controlled this am continue toprol, xarelto bipolar depakote htn toprol hypothyroid synthroid dvt prophylaxis - xarelto full code attending - dr. truong need for inpatient, sepsis, at risk for further decompensation due to poor functional reserve would not want to go to [facility] Stroke Does the patient have a stroke diagnosis?: No VTE Prior VTE?: No VTE Risk Level:: Medical - moderate - high VTE Device Contraindication: Treatment Not Indicated VTE Drug Contraindication: N/A - Med Ordered
[2023-10-02 15:10] VITALS: BP 121/80; PULSE 102; RESP 12; TEMP 36.2; O2SAT 96
[2023-10-02 16:36] LABS: Glucose, Whole Blood 167 mg/dL (60-115)
[2023-10-02] MEDS: Rivaroxaban 20 MG TABLET PO (17:20)
[2023-10-02 19:30] VITALS: BP 109/62; PULSE 113; RESP 18; TEMP 36.2; O2SAT 97
[2023-10-02 20:23] LABS: Glucose, Whole Blood 167 mg/dL (60-115)
[2023-10-02] MEDS: Divalproex Sodium 250 MG TABLET.DR PO (21:43)
[2023-10-02] MEDS: traZODone HCL 25 MG HALFTAB 225 MG PO (21:43)
[2023-10-02] MEDS: Metoprolol Succinate ER 50 MG TAB.ER.24H PO (21:44)
--- NOTE | 2023-10-02 23:29 | W.PM.IDCN ---
History of Present Illness Data of Consult Service Date: 09/30/23 Requesting physician: David Majano Primary Care Provider: Wil Mayfield MD HPI Reason for consult: diarrhea,dysuria She presents with dysuria and frequency at home. She has baseline incontinence and rectal incontinence ?etiology. She has been started on Cefepime as has prolonged QT probable quinolones risk. She feels better. Culture urine has had Pseudomonas and Cdiff negative now. Review of Systems Gastrointestinal: Gastrointestinal: Reports diarrhea PMFSH Past Medical History Medical History Hip pain, left Paroxysmal atrial fibrillation Morbid obesity due to excess calories Non-insulin dependent type 2 diabetes mellitus Pre-op evaluation Medication side effect Muscle stiffness Hospital discharge follow-up Weakness Leg edema SOB (shortness of breath) On anticoagulant therapy On beta carlos at home Bipolar 1 disorder Vertigo PTSD (post-traumatic stress disorder) History of cardioversion Arthritis Hypothyroidism History of wheezing Persistent atrial fibrillation Diabetes mellitus HTN (hypertension) LBBB (left bundle branch block) PAF (paroxysmal atrial fibrillation) Family History Family History Father No problems noted. Mother No problems noted. Other Mental health disorder Substance use disorder Family history: reviewed and not pertinent Surgical History Surgical History History of cardiac radiofrequency ablation History of eye surgery Hx of section Hx of colonoscopy Hx of cholecystectomy Hx of arthroscopy of right knee Social History Social History Household Members: Spouse and Children Household Members Other:: daughter + Housing: House Do you presently have visiting nurse or other home services: No Alcohol intake: former Comment: patient fll asleep Patient Tobacco Use Status: Former Tobacco user Quit Date: 1989 e-Cigarette/Vaping Use: Never Used Second Hand Smoke Exposure: No Advance Directives Date on File: 06/29/23 service: No Current occupational status: employed Sexual orientation: Straight/Heterosexual Cognitive needs: No Hearing needs: No Vision needs: Yes Meds Allergies Allergy/AdvReac Type Severity Reaction Status Date / Time aspirin [ASA] Allergy Intermediate GI PAIN, Verified 09/01/23 14:30 upset stomach hazelnut Allergy Unknown Unknown Verified 09/01/23 14:30 shellfish derived Allergy Unknown Unknown Verified 09/01/23 14:30 gluten Allergy Unknown Verified 09/01/23 14:30 sesame seeds Allergy Unknown Unknown Uncoded 08/19/23 12:12 Active Medications: Current Medications Divalproex Sodium (Divalproex Sodium 250 Mg Tablet.) 250 mg PO BEDTIME [facility] Last Admin: 10/02/23 21:43 Dose: 250 mg Divalproex Sodium (Divalproex Sodium 500 Mg Tablet.) 500 mg PO BID [facility] Last Admin: 10/02/23 21:43 Dose: 500 mg Cefepime HCl 1 gm/ Sodium (Chloride) 50 mls @ 100 mls/hr IV Q8H [facility] Last Infusion: 10/02/23 18:06 Dose: Infused Levothyroxine Sodium (Levothyroxine Sodium 150 Mcg Tablet) 150 mcg PO DAILY@0600 [facility] Last Admin: 10/02/23 05:47 Dose: 150 mcg Metoprolol Succinate (Metoprolol Succinate Er 50 Mg Tab.Er.24h) 50 mg PO BEDTIME [facility]; Protocol Last Admin: 10/02/23 21:44 Dose: 50 mg Eluxadoline [Viberzi (] 75 Mg Tablet) 1 each PO BID [facility] Last Admin: 10/02/23 22:24 Dose: Not Given Oxycodone HCl (Oxycodone Hcl Immed Release 5 Mg Tablet) 5 mg PO Q4H PRN PRN Reason: Pain, Moderate(Pain Scale 4-6) Last Admin: 09/30/23 21:14 Dose: 5 mg Rivaroxaban (Rivaroxaban 20 Mg Tablet) 20 mg PO DAILY@1700 [facility] Last Admin: 10/02/23 17:20 Dose: 20 mg Trazodone HCl (Trazodone Hcl 25 Mg Halftab) 225 mg PO BEDTIME [facility] Last Admin: 10/02/23 21:43 Dose: 225 mg Home Medications Medication Instructions Recorded Confirmed Last Taken Type trazodone 150 mg tablet 225 mg PO BEDTIME 07/09/22 09/30/23 06/28/23 History divalproex 250 mg tablet,delayed 250 mg PO BEDTIME 06/10/23 09/30/23 06/28/23 History release divalproex 500 mg tablet,delayed 500 mg PO BID 06/10/23 09/30/23 06/29/23 History release metoprolol succinate 50 mg 50 mg PO BEDTIME 06/29/23 09/30/23 06/28/23 History tablet,extended release 24 hr eluxadoline 75 mg tablet (Viberzi) 75 mg PO BID 09/04/23 09/30/23 Unknown History Physical Exam Vital Signs: Vital Signs: Last Vital Signs Temp 97.2 F 10/02/23 19:30 Pulse 113 H 10/02/23 19:30 Resp 18 10/02/23 19:30 BP 109/62 10/02/23 19:30 Pulse Ox 97 10/02/23 19:30 O2 Del Method Nasal Cannula 10/02/23 19:30 O2 Flow Rate 2 10/02/23 19:30 BMI result Body Mass Index 23.4 Const: General: cooperative HEENT: Head: Yes normal to inspection Face and sinus: Yes normal facial exam Mouth: Normal oral and palatal mucosa present Teeth and gingiva: dentition normal Eyes: General: appearance normal, both eyes and all related structures Pupils: Equal, round and reactive pupils present Resp: Effort & Inspection: normal respiratory effort Cardio: Rate: regular rate Rhythm: regular rhythm GI: Palpation (GI): Soft to palpation and nontender : General: Yes no CVA tenderness Back/Spine/Pelvis: Back: no CVA tenderness Skin: General skin exam: no rashes or lesions noted Neuro: General: moves all extremities Cranial nerves: Yes Equal, round and reactive pupils present Extrem: General: Yes normal to inspection Psych: Appearance: grossly normal Results Labs 10/01/23 05:45 10/01/23 05:45 Microbiology Microbiology Results: Microbiology 09/29/23 21:06 Blood - Venous Blood Culture - Preliminary No growth after 48 hours. 09/29/23 19:12 Blood - Venous Blood Culture - Preliminary No growth after 48 hours. 09/30/23 Unknown Urine clean catch - Urine montanez top Urine Culture - Final No growth. Assessment and Plan (1) Weakness: Status: Acute (2) Fever: Status: Acute She likely has UTI with diarrhea not due to Cdiff at this time Cefepime good choice for Pseudomonas with no QT prolongation concerns. Would continue Cefepime,now day 3/7 No Vancomycin at this time,watch for any change in stool consistency.
[2023-10-03] MEDS: oxyCODONE HCl Immed Release 5 MG TABLET PO ×2 (00:18→05:27)
[2023-10-03] MEDS: cefEPime HCl 1 GM in 0.9 % Sodium Chloride 50 ML IV ×3 (02:42→17:40)
[2023-10-03 03:42] VITALS: BP 102/58; PULSE 104; RESP 20; TEMP 36.1; O2SAT 96
[2023-10-03] MEDS: Levothyroxine Sodium 150 MCG TABLET PO (05:11)
[2023-10-03 07:41] VITALS: BP 114/79; PULSE 76; RESP 16; TEMP 36.3; O2SAT 96
[2023-10-03 07:52] LABS: Glucose, Whole Blood 127 mg/dL (60-115)
[2023-10-03] MEDS: Divalproex Sodium 500 MG TABLET.DR PO ×2 (09:48→21:38)
[2023-10-03 11:58] LABS: Glucose, Whole Blood 118 mg/dL (60-115)
--- NOTE | 2023-10-03 13:11 | HO.PM.IMPN ---
Subjective Subjective Date of Service: 10/03/23 Interval History: follow up for UTI, encephalopathy, diarrhea acute on chronic diarrhea multiple times per day, recently completed 14 day course of po vanco alert but slow to answer questions Review of Systems Review of Systems: Yes all other systems are reviewed and are negative Constitutional Constitutional: Denies chills and Denies fever(s) Cardiovascular Cardiovascular: Denies chest pain Gastrointestinal Gastrointestinal: Denies abdominal pain, Reports diarrhea and Denies vomiting Physical Exam Vital Signs: Vital Signs: Last Vital Signs Temp 97.3 F 10/03/23 07:41 Pulse 76 10/03/23 07:41 Resp 16 10/03/23 07:41 BP 114/79 10/03/23 07:41 Pulse Ox 96 10/03/23 07:41 O2 Del Method Nasal Cannula 10/03/23 07:41 O2 Flow Rate 2 10/03/23 07:41 BMI result Body Mass Index 23.4 Appearing in no acute distress lung sounds are clear to auscultation heart regular rate rhythm, clear S1, S2 positive bowel sounds, abdomen is soft, nontender neuro patient is alert x3, no focal deficits Objective Data Active Medications Divalproex Sodium (Divalproex Sodium 250 Mg Tablet.) 250 mg PO BEDTIME [facility] Last Admin: 10/02/23 21:43 Dose: 250 mg Documented By: DESTINY Divalproex Sodium (Divalproex Sodium 500 Mg Tablet.) 500 mg PO BID [facility] Last Admin: 10/03/23 09:48 Dose: 500 mg Documented By: SALVADOR Cefepime HCl 1 gm/ Sodium (Chloride) 50 mls @ 100 mls/hr IV Q8H [facility] Last Infusion: 10/03/23 10:24 Dose: Infused Documented By: JYOTSNA Levothyroxine Sodium (Levothyroxine Sodium 150 Mcg Tablet) 150 mcg PO DAILY@0600 [facility] Last Admin: 10/03/23 05:11 Dose: 150 mcg Documented By: DESTINY Metoprolol Succinate (Metoprolol Succinate Er 50 Mg Tab.Er.24h) 50 mg PO BEDTIME [facility]; Protocol Last Admin: 10/02/23 21:44 Dose: 50 mg Documented By: DESTINY Eluxadoline [Viberzi (] 75 Mg Tablet) 1 each PO BID [facility] Last Admin: 10/02/23 22:24 Dose: Not Given Documented By: DESTINY Non-Admin Reason: Med Not Available Oxycodone HCl (Oxycodone Hcl Immed Release 5 Mg Tablet) 5 mg PO Q4H PRN PRN Reason: Pain, Moderate(Pain Scale 4-6) Last Admin: 10/03/23 05:27 Dose: 5 mg Documented By: DESTINY Rivaroxaban (Rivaroxaban 20 Mg Tablet) 20 mg PO DAILY@1700 [facility] Last Admin: 10/02/23 17:20 Dose: 20 mg Documented By: JOS Trazodone HCl (Trazodone Hcl 25 Mg Halftab) 225 mg PO BEDTIME [facility] Last Admin: 10/02/23 21:43 Dose: 225 mg Documented By: DESTINY Labs 10/01/23 05:45 10/01/23 05:45 Labs: Laboratory Results - last 24 hr 10/02/23 10/02/23 10/03/23 16:32 20:08 07:43 POC Glucose 167 H 167 H 127 H 10/03/23 11:55 POC Glucose 118 H Assessment and Plan (1) Diarrhea: Status: Acute (2) Fever: Status: Acute Plan 68F PMH HTN, paroxysmal afib, bipolar, cdif colonizer, IBS, ?DM, hypothyroid, presented with ams, diarrhea, fever with concern for sepsis due to UTI sepsis and acute metabolic encephalopathy met sepsis criteria with fever and tachycardia, no leukocytosis initially thought to be related to UTI, has recent history of Pseudomoas and ct with signs of cystitis - but urine culture negative (reportedly recently treated for UTI ? r/t recent abx) continue cefepime for now given presentation with Sepsis and pt seems to be improving with current management ID eval pending flu, covid, RSV negative; CXR negative for pna acute and chronic diarrhea with history of cdiff colonization recently completed 14 days of po vanco stool panel negative, cdif negative family reports significant persistent diarrhea at baseline h/o celiac - add gluten free restriction to diet follows outpatient with GI for diarrhea, has been on cholestyramine and currently on Viberzi seems to be improving bladder nodule and thickening will need outpatient cystoscopy history of DM A1C of 6.5, diet controlled diabetic diet follow POCs paroxysmal afib with rvr HR elevated overnight, got a dose of IV cardizem HR controlled this am continue toprol, xarelto bipolar depakote htn toprol hypothyroid synthroid dvt prophylaxis - xarelto full code attending - dr. Galdamez DISPO plan for dc home when medically clear need for inpatient, sepsis, at risk for further decompensation due to poor functional reserve Quality Stroke Does the patient have a stroke diagnosis?: No VTE Prior VTE?: No VTE Risk Level:: Medical - moderate - high VTE Device Contraindication: Treatment Not Indicated VTE Drug Contraindication: N/A - Med Ordered
--- NOTE | 2023-10-03 15:43 | P.CNGI_ITS ---
History of Present Illness Data of Consult Service Date: 10/03/23 Requesting physician: Gloria Avila Primary Care Provider: Adithya Gutierrez MD HPI 68YF with HTN, paroxysmal afib, bipolar, cdif colonizer, IBS, ?DM, hypothyroid admitted to [facility] on 09/30/23 with a change in MS, acute on chronic diarrhea, fever. Patient is being followed in the GI clinic by Deidra Stubbs NP for chronic diarrhea, She was recently treated for a uti and given concomitant vanco for cdif colonization. She just finished the course and started to have diarreha again, weakness, difficulty ambulating. called EMS. In ED noted to be septic, fever 102.3, afib with rvr 146. ct abd with possible cystitis, unable to obtain UA. patient currently lethargic, poor historian, no specific complaints. Pt lives at home with , reports normally ambulates with walker, but very weak now. 09/29/[address] SCAN SHOWED: 1. No acute intra-abdominal process seen. 2. Mild bladder wall thickening with enhancing nodule along the right posterior bladder wall and moderate bladder wall thickening along the base. No change from the last exam. Recommend cystoscopy. 3. Low-attenuation area in the left and right hepatic lobe are stable. 4. Mild constipation. PAST GI HISTORY BY REVIEW OF MEDICAL RECORDS: 2007 colonoscopy was performed by Dr. Quintana and was normal except for small hemorrhoids PMFSH Past Medical History Medical History Irritable bowel syndrome with diarrhea Chronic atrial fibrillation Paroxysmal atrial fibrillation C. difficile colitis Morbid obesity due to excess calories Non-insulin dependent type 2 diabetes mellitus Weakness Leg edema Bipolar 1 disorder Vertigo PTSD (post-traumatic stress disorder) History of cardioversion Arthritis Hypothyroidism History of wheezing Diabetes mellitus HTN (hypertension) LBBB (left bundle branch block) PAF (paroxysmal atrial fibrillation) Family History Family History Father No problems noted. Mother No problems noted. Other Mental health disorder Substance use disorder Family history: reviewed and not pertinent Surgical History Surgical History History of cardiac radiofrequency ablation History of eye surgery Hx of section Hx of colonoscopy Hx of cholecystectomy Hx of arthroscopy of right knee Social History Social History Household Members: Spouse and Children Household Members Other:: daughter + Housing: House Do you presently have visiting nurse or other home services: Yes Alcohol intake: former Comment: patient fll asleep Patient Tobacco Use Status: Former Tobacco user Quit Date: 1989 e-Cigarette/Vaping Use: Never Used Second Hand Smoke Exposure: No Advance Directives Date on File: 06/29/23 service: No Current occupational status: employed Sexual orientation: Straight/Heterosexual Cognitive needs: No Hearing needs: No Vision needs: Yes Meds Allergies Allergy/AdvReac Type Severity Reaction Status Date / Time aspirin [ASA] Allergy Intermediate GI PAIN, Verified 12/16/23 13:27 upset stomach hazelnut Allergy Unknown Unknown Verified 12/16/23 13:27 shellfish derived Allergy Unknown Unknown Verified 12/16/23 13:27 gluten Allergy Unknown Verified 12/16/23 13:27 sesame seeds Allergy Unknown Unknown Uncoded 10/08/23 11:55 Active Medications: Current Medications Divalproex Sodium (Divalproex Sodium 250 Mg Tablet.) 250 mg PO BEDTIME [facility] Last Admin: 10/02/23 21:43 Dose: 250 mg Divalproex Sodium (Divalproex Sodium 500 Mg Tablet.) 500 mg PO BID [facility] Last Admin: 10/03/23 09:48 Dose: 500 mg Cefepime HCl 1 gm/ Sodium (Chloride) 50 mls @ 100 mls/hr IV Q8H [facility] Last Infusion: 10/03/23 10:24 Dose: Infused Levothyroxine Sodium (Levothyroxine Sodium 150 Mcg Tablet) 150 mcg PO DAILY@0600 [facility] Last Admin: 10/03/23 05:11 Dose: 150 mcg Metoprolol Succinate (Metoprolol Succinate Er 50 Mg Tab.Er.24h) 50 mg PO BEDTIME [facility]; Protocol Last Admin: 10/02/23 21:44 Dose: 50 mg Eluxadoline [Viberzi (] 75 Mg Tablet) 1 each PO BID [facility] Last Admin: 10/03/23 15:12 Dose: Not Given Oxycodone HCl (Oxycodone Hcl Immed Release 5 Mg Tablet) 5 mg PO Q4H PRN PRN Reason: Pain, Moderate(Pain Scale 4-6) Last Admin: 10/03/23 05:27 Dose: 5 mg Rivaroxaban (Rivaroxaban 20 Mg Tablet) 20 mg PO DAILY@1700 [facility] Last Admin: 10/02/23 17:20 Dose: 20 mg Trazodone HCl (Trazodone Hcl 25 Mg Halftab) 225 mg PO BEDTIME [facility] Last Admin: 10/02/23 21:43 Dose: 225 mg Home Medications Medication Instructions Recorded Confirmed Last Taken Type trazodone 150 mg tablet 220 mg PO BEDTIME 12/16/23 Unknown History Physical Exam 2 Vital Signs: Vital Signs: Last Vital Signs Temp 97.3 F 10/03/23 07:41 Pulse 76 10/03/23 07:41 Resp 16 10/03/23 07:41 BP 114/79 10/03/23 07:41 Pulse Ox 96 10/03/23 07:41 O2 Del Method Nasal Cannula 10/03/23 07:41 O2 Flow Rate 2 10/03/23 07:41 BMI result Body Mass Index 23.4 Results Labs 10/01/23 05:45 10/01/23 05:45 Microbiology Microbiology Results: Microbiology 09/29/23 21:06 Blood - Venous Blood Culture - Preliminary No growth after 48 hours. 09/29/23 19:12 Blood - Venous Blood Culture - Preliminary No growth after 48 hours. 09/30/23 Unknown Urine clean catch - Urine montanez top Urine Culture - Final No growth. Assessment and Plan (1) C. difficile colitis: Status: Inactive (2) Irritable bowel syndrome with diarrhea: Status: Acute (3) Chronic diarrhea: Status: Inactive Plan 68YF with HTN, paroxysmal afib, bipolar, cdif colonizer, IBS, ?DM, hypothyroid admitted to [facility] on 09/30/23 with a change in MS, acute on chronic diarrhea, fever. Patient is being followed in the GI clinic by Deidra Stubbs NP for chronic diarrhea, Etiology of diarrhea is unclear - possibly infectious colitis, microscopic colitis or related to medications. RECOMMENDATIONS: Pt advised to schedule an EGD and a colonoscopy for further evaluation. Clear liquid diet and Golytely prep on 10/04/23 and colonoscopy will be scheduled on 10/05/23 Procedures Date of Service Date of Service: 01/18/24
[2023-10-03 16:00] VITALS: BP 146/88; PULSE 105; RESP 16; TEMP 36.3; O2SAT 95
[2023-10-03] MEDS: Rivaroxaban 20 MG TABLET PO (17:40)
[2023-10-03 18:49] LABS: Glucose, Whole Blood 157 mg/dL (60-115)
[2023-10-03 19:17] VITALS: BP 104/69; PULSE 107; RESP 20; TEMP 36.7; O2SAT 97
[2023-10-03 20:03] LABS: Glucose, Whole Blood 138 mg/dL (60-115)
[2023-10-03] MEDS: Metoprolol Succinate ER 50 MG TAB.ER.24H PO (21:36)
[2023-10-03] MEDS: PEG 3350/Na Sulf,Bicarb,Cl/KCL 4,000 ML SOLN.RECON 4000 ML PO (21:36)
[2023-10-03] MEDS: Divalproex Sodium 250 MG TABLET.DR PO (21:37)
[2023-10-03] MEDS: traZODone HCL 25 MG HALFTAB 225 MG PO (21:38)
[2023-10-04 02:59] VITALS: BP 116/64; PULSE 105; RESP 20; TEMP 36.2; O2SAT 95
[2023-10-04] MEDS: cefEPime HCl 1 GM in 0.9 % Sodium Chloride 50 ML IV ×3 (03:30→19:25)
--- NOTE | 2023-10-04 05:02 | PC.NURSE ---
Betrashashank arrived to unit after 1999. Patient attempted to drink although only able to take small amount. Stool in not clear. Hospitalist notified.
[2023-10-04] MEDS: Levothyroxine Sodium 150 MCG TABLET PO (06:10)
[2023-10-04 07:49] VITALS: BP 112/56; PULSE 100; RESP 16; TEMP 36.1; O2SAT 96
[2023-10-04 07:57] LABS: Glucose, Whole Blood 110 mg/dL (60-115)
[2023-10-04] MEDS: bisacodyL 5 MG TABLET.DR 10 MG PO (10:42)
[2023-10-04] MEDS: Divalproex Sodium 500 MG TABLET.DR PO ×2 (10:42→22:34)
--- NOTE | 2023-10-04 10:42 | MHC.CM.PN ---
Patient is active with [facility].
--- NOTE | 2023-10-04 11:05 | P.PNIM_ITS ---
Subjective Subjective Date of Service: 10/04/23 Interval History: follow up for UTI, encephalopathy, diarrhea acute on chronic diarrhea multiple times per day, recently completed 14 day course of po vanco alert but slow to answer questions Review of Systems Review of Systems: Yes all other systems are reviewed and are negative Constitutional Constitutional: Denies chills and Denies fever(s) Cardiovascular Cardiovascular: Denies chest pain Gastrointestinal Gastrointestinal: Denies abdominal pain, Reports diarrhea and Denies vomiting Physical Exam 2 Vital Signs: Vital Signs: Last Vital Signs Temp 97 F 10/04/23 07:49 Pulse 100 10/04/23 07:49 Resp 16 10/04/23 07:49 BP 112/56 L 10/04/23 07:49 Pulse Ox 96 10/04/23 07:49 O2 Del Method Nasal Cannula 10/04/23 07:49 O2 Flow Rate 2 10/04/23 07:49 BMI result Body Mass Index 23.4 Appearing in no acute distress lung sounds are clear to auscultation heart regular rate rhythm, clear S1, S2 positive bowel sounds, abdomen is soft, nontender neuro patient is alert x3, no focal deficits Objective Data Active Medications Divalproex Sodium (Divalproex Sodium 250 Mg Tablet.) 250 mg PO BEDTIME [facility] Last Admin: 10/03/23 21:37 Dose: 250 mg Documented By: YARITZA Divalproex Sodium (Divalproex Sodium 500 Mg Tablet.) 500 mg PO BID [facility] Last Admin: 10/04/23 10:42 Dose: 500 mg Documented By: FREDY Cefepime HCl 1 gm/ Sodium (Chloride) 50 mls @ 100 mls/hr IV Q8H [facility] Last Admin: 10/04/23 10:42 Dose: 100 mls/hr Documented By: FREDY Levothyroxine Sodium (Levothyroxine Sodium 150 Mcg Tablet) 150 mcg PO DAILY@0600 [facility] Last Admin: 10/04/23 06:10 Dose: 150 mcg Documented By: YARITZA Metoprolol Succinate (Metoprolol Succinate Er 50 Mg Tab.Er.24h) 50 mg PO BEDTIME [facility]; Protocol Last Admin: 10/03/23 21:36 Dose: 50 mg Documented By: YARITZA Eluxadoline [Viberzi (] 75 Mg Tablet) 1 each PO BID [facility] Last Admin: 10/03/23 21:38 Dose: Not Given Documented By: YARITZA Non-Admin Reason: Med Not Available Oxycodone HCl (Oxycodone Hcl Immed Release 5 Mg Tablet) 5 mg PO Q4H PRN PRN Reason: Pain, Moderate(Pain Scale 4-6) Last Admin: 10/03/23 05:27 Dose: 5 mg Documented By: DESTINY Rivaroxaban (Rivaroxaban 20 Mg Tablet) 20 mg PO DAILY@1700 [facility] Last Admin: 10/03/23 17:40 Dose: 20 mg Documented By: FREDY Trazodone HCl (Trazodone Hcl 25 Mg Halftab) 225 mg PO BEDTIME [facility] Last Admin: 10/03/23 21:38 Dose: 225 mg Documented By: YARITZA Labs 10/01/23 05:45 10/01/23 05:45 Labs: Laboratory Results - last 24 hr 10/03/23 10/03/23 10/03/23 11:55 16:14 19:54 POC Glucose 118 H 157 H 138 H 10/04/23 07:53 POC Glucose 110 Assessment and Plan (1) Diarrhea: Status: Inactive (2) Fever: Status: Acute Plan 68F PMH HTN, paroxysmal afib, bipolar, cdif colonizer, IBS, ?DM, hypothyroid, presented with ams, diarrhea, fever with concern for sepsis due to UTI Acute and chronic diarrhea with history of cdiff colonization recently completed 14 days of po vanco stool panel negative, cdiff negative family reports significant persistent diarrhea at baseline h/o celiac - add gluten free restriction to diet follows outpatient with GI for diarrhea, has been on cholestyramine and currently on Viberzi plan for colonoscopy tomorrow, hold Viberzi also NPO after midnight Sepsis and acute metabolic encephalopathy. Sepsis resolved met sepsis criteria with fever and tachycardia, no leukocytosis initially thought to be related to UTI, has recent history of Pseudomoas and ct with signs of cystitis urine cx negative, s/p cefepime 5 days ID eval pending flu, covid, RSV negative; CXR negative for pna bladder nodule and thickening will need outpatient cystoscopy history of DM A1C of 6.5, diet controlled diabetic diet follow POCs paroxysmal afib with rvr s/p IV cardizem HR controlled continue toprol, xarelto bipolar depakote htn toprol hypothyroid synthroid dvt prophylaxis - xarelto full code attending - dr. Galdamez DISPMt plan for dc home when medically clear need for inpatient, sepsis, at risk for further decompensation due to poor functional reserve, plan for colonoscopy 10/05/23 Quality Stroke Does the patient have a stroke diagnosis?: No VTE Prior VTE?: No VTE Risk Level:: Medical - moderate - high VTE Device Contraindication: Treatment Not Indicated VTE Drug Contraindication: N/A - Med Ordered
[2023-10-04 11:33] LABS: Glucose, Whole Blood 203 mg/dL (60-115)
[2023-10-04 16:00] VITALS: BP 126/73; PULSE 112; RESP 16; TEMP 37; O2SAT 95
[2023-10-04 17:22] LABS: Glucose, Whole Blood 132 mg/dL (60-115)
[2023-10-04 19:23] VITALS: BP 121/78; PULSE 114; RESP 18; TEMP 36.3; O2SAT 96
[2023-10-04] MEDS: traZODone HCL 25 MG HALFTAB 225 MG PO (22:34)
[2023-10-04] MEDS: Divalproex Sodium 250 MG TABLET.DR PO (22:34)
[2023-10-04] MEDS: Metoprolol Succinate ER 50 MG TAB.ER.24H PO (22:35)
[2023-10-05] VITALS (12 sets, daily range): BP systolic 89–146; BP diastolic 36–80; PULSE 88–121; RESP 14–20; TEMP 36–36.8; O2SAT 92–97; BMI 45.9
--- NOTE | 2023-10-05 03:17 | PC.NURSE ---
pt scheduled for colonoscopy 10/05, finished approx 3/4 of prep, declined to complete solution.
[2023-10-05] MEDS: Levothyroxine Sodium 150 MCG TABLET PO (05:39)
[2023-10-05 07:44] LABS: Glucose, Whole Blood 98 mg/dL (60-115)
[2023-10-05] MEDS: Divalproex Sodium 500 MG TABLET.DR PO ×2 (07:47→21:21)
--- NOTE | 2023-10-05 08:39 | MHC.CM.PN ---
Per [employer], Patient is having a Colonoscopy today and is not anticipated to be dc today. CM will follow.
--- NOTE | 2023-10-05 10:21 | HO.PM.IMPN ---
Subjective Subjective Date of Service: 10/05/23 Interval History: follow up for UTI, encephalopathy, diarrhea acute on chronic diarrhea multiple times per day, recently completed 14 day course of po vanco alert but slow to answer questions Review of Systems Review of Systems: Yes all other systems are reviewed and are negative Constitutional Constitutional: Denies chills and Denies fever(s) Cardiovascular Cardiovascular: Denies chest pain Gastrointestinal Gastrointestinal: Denies abdominal pain, Reports diarrhea and Denies vomiting Physical Exam Vital Signs: Vital Signs: Last Vital Signs Temp 97.6 F 10/05/23 07:35 Pulse 88 10/05/23 07:35 Resp 16 10/05/23 07:35 BP 105/61 10/05/23 07:35 Pulse Ox 97 10/05/23 07:35 O2 Del Method Nasal Cannula 10/05/23 07:35 O2 Flow Rate 2.5 10/05/23 07:35 BMI result Body Mass Index 23.4 Appearing in no acute distress lung sounds are clear to auscultation heart regular rate rhythm, clear S1, S2 positive bowel sounds, abdomen is soft, nontender neuro patient is alert x3, no focal deficits Objective Data Active Medications Divalproex Sodium (Divalproex Sodium 250 Mg Tablet.) 250 mg PO BEDTIME [facility] Last Admin: 10/04/23 22:34 Dose: 250 mg Documented By: DENIS Divalproex Sodium (Divalproex Sodium 500 Mg Tablet.) 500 mg PO BID [facility] Last Admin: 10/05/23 07:47 Dose: 500 mg Documented By: RETA Levothyroxine Sodium (Levothyroxine Sodium 150 Mcg Tablet) 150 mcg PO DAILY@0600 [facility] Last Admin: 10/05/23 05:39 Dose: 150 mcg Documented By: CHAZ Metoprolol Succinate (Metoprolol Succinate Er 50 Mg Tab.Er.24h) 50 mg PO BEDTIME [facility]; Protocol Last Admin: 10/04/23 22:35 Dose: 50 mg Documented By: DENIS Eluxadoline [Viberzi (] 75 Mg Tablet) 1 each PO BID [facility] Last Admin: 10/03/23 21:38 Dose: Not Given Documented By: YARITZA Non-Admin Reason: Med Not Available Oxycodone HCl (Oxycodone Hcl Immed Release 5 Mg Tablet) 5 mg PO Q4H PRN PRN Reason: Pain, Moderate(Pain Scale 4-6) Last Admin: 10/03/23 05:27 Dose: 5 mg Documented By: DESTINY Rivaroxaban (Rivaroxaban 20 Mg Tablet) 20 mg PO DAILY@1700 [facility] Last Admin: 10/03/23 17:40 Dose: 20 mg Documented By: FREDY Trazodone HCl (Trazodone Hcl 25 Mg Halftab) 225 mg PO BEDTIME [facility] Last Admin: 10/04/23 22:34 Dose: 225 mg Documented By: DENIS Labs 10/01/23 05:45 10/01/23 05:45 Labs: Laboratory Results - last 24 hr 10/04/23 10/04/23 10/05/23 11:27 16:22 07:38 POC Glucose 203 H 132 H 98 Microbiology Microbiology Results: Microbiology 09/29/23 21:06 Blood Culture - Final Blood - Venous No growth after 5 days. 09/29/23 19:12 Blood Culture - Final Blood - Venous No growth after 5 days. Assessment and Plan (1) Diarrhea: Status: Inactive (2) Fever: Status: Acute Plan 68F PMH HTN, paroxysmal afib, bipolar, cdif colonizer, IBS, ?DM, hypothyroid, presented with ams, diarrhea, fever with concern for sepsis due to UTI Acute and chronic diarrhea with history of cdiff colonization recently completed 14 days of po vanco stool panel negative, cdiff negative family reports significant persistent diarrhea at baseline h/o celiac - add gluten free restriction to diet follows outpatient with GI for diarrhea, has been on cholestyramine and currently on Viberzi plan for colonoscopy today, hold Viberzi and xarelto Sepsis and acute metabolic encephalopathy. Sepsis resolved met sepsis criteria with fever and tachycardia, no leukocytosis initially thought to be related to UTI, has recent history of Pseudomoas and ct with signs of cystitis urine cx negative, s/p cefepime 5 days flu, covid, RSV negative; CXR negative for pna bladder nodule and thickening will need outpatient cystoscopy history of DM A1C of 6.5, diet controlled diabetic diet follow POCs paroxysmal afib with rvr s/p IV cardizem HR controlled continue toprol hold xarelto in light of colonoscopy bipolar depakote htn toprol hypothyroid synthroid dvt prophylaxis - xarelto on hold for colonoscopy full code attending - dr. Galdamez DISPO plan for dc home when medically clear need for inpatient, sepsis, at risk for further decompensation due to poor functional reserve, plan for colonoscopy 10/05/23 Quality Stroke Does the patient have a stroke diagnosis?: No VTE Prior VTE?: No VTE Risk Level:: Medical - moderate - high VTE Device Contraindication: Treatment Not Indicated VTE Drug Contraindication: N/A - Med Ordered
[2023-10-05] MEDS: bisacodyL 5 MG TABLET.DR 10 MG PO (10:42)
--- NOTE | 2023-10-05 11:32 | HO.WOUND ---
Wound Consult: Initial 68yr old female admitted to [facility] on?09/30/23 02:19- See progress notes and H&P for detailed history. Wound consult placed for sacral / buttock assessment. Arrival to bedside pt was agreeable to assessment - she denies pain. she reports frequent loose stools in bed since she is drinking a Prep for Colonoscopy later today. She reports she is unable to get up to Bathroom or commode. Purewick in place and dry bita pads in place. Pt currently incontinent of liquid stool - Discontinue Purewick use as this is contraindicated with loose stools in proximity to Purewick suction. Incontinence care provided. Sacrum and buttock perineal areas assessed - MASD -IAD (Moisture Associated Skin Damage - Incontinence Associated Dermatitis) red intact blanchable tissue noted, no open lesions noted - Barrier cream applied. Recommendations: 1. Turn and Reposition every 2 hours and as needed for patient comfort. 2. Off Load all bony prominences with use of pillows and heel boots if needed.? Apply Preventative foams where needed. ? 3. Monitor for incontinence and moisture control, use barrier creams when needed for prevention and treatment. 4. Provide adequate and supplemental nutrition. 5. Order low air loss mattress. 6. Sacrum, buttocks and Perianal - Cleanse with routine cleansing and incontinence care. Apply Triad cream to skin twice daily and PRN. Re-consult wound care Nurse for wound deterioration or wound changes.
[2023-10-05 11:40] LABS: Glucose, Whole Blood 114 mg/dL (60-115)
[2023-10-05 13:52] LABS: Glucose, Whole Blood 116 mg/dL (60-115)
--- NOTE | 2023-10-05 14:45 | HO.ANESPROP2 ---
HPI - Anesthesia Eval Consult details Narrative: for EGD and colonoscopy PMFSH Active Problems Active Problems: All Active Problems (Updated 10/03/23 @ 17:34 by Fartun Feldman MD) Weakness (Acute) Fever (Acute) C. difficile colitis (Acute) Atrial fibrillation (Acute) Irritable bowel syndrome with diarrhea (Acute) Multiple food allergies (Acute) Celiac disease (Acute) Gait instability (Acute) Recurrent falls (Acute) Rectal incontinence (Acute) Frequency of urination (Acute) Psychiatric illness (Acute) Difficulty walking (Acute) Osteoarthritis of left hip (Acute) Coarse tremors (Acute) Fall (Acute) Difficulty sleeping (Acute) PTSD (post-traumatic stress disorder) (Acute) Bipolar 1 disorder, manic, moderate (Acute) Prolonged QT interval (Acute) Vertigo (Acute) Dacryadenitis, acute (Acute) Other specified hypothyroidism (Acute) Diastolic dysfunction with chronic heart failure (Acute) Atrial flutter (Acute) LBBB (left bundle branch block) (Acute) HTN (hypertension) (Acute) Diabetes mellitus (Acute) Past Medical History Medical History Hip pain, left Paroxysmal atrial fibrillation Morbid obesity due to excess calories Non-insulin dependent type 2 diabetes mellitus Pre-op evaluation Medication side effect Muscle stiffness Hospital discharge follow-up Weakness Leg edema SOB (shortness of breath) On anticoagulant therapy On beta carlos at home Bipolar 1 disorder Vertigo PTSD (post-traumatic stress disorder) History of cardioversion Arthritis Hypothyroidism History of wheezing Persistent atrial fibrillation Diabetes mellitus HTN (hypertension) LBBB (left bundle branch block) PAF (paroxysmal atrial fibrillation) Functional capacity: uses cane/walker Family History Family History Father No problems noted. Mother No problems noted. Other Mental health disorder Substance use disorder Family history of problems with anesthesia: No Surgical History Surgical History History of cardiac radiofrequency ablation History of eye surgery Hx of section Hx of colonoscopy Hx of cholecystectomy Hx of arthroscopy of right knee History of Problems with Anesthesia: No Social History Social History Household Members: Spouse and Children Household Members Other:: daughter + Housing: House Do you presently have visiting nurse or other home services: No Alcohol intake: former Comment: patient fll asleep Patient Tobacco Use Status: Former Tobacco user Quit Date: 1989 e-Cigarette/Vaping Use: Never Used Second Hand Smoke Exposure: No Advance Directives Date on File: 06/29/23 service: No Current occupational status: employed Sexual orientation: Straight/Heterosexual Cognitive needs: No Hearing needs: No Vision needs: Yes Meds Allergies Allergy/AdvReac Type Severity Reaction Status Date / Time aspirin [ASA] Allergy Intermediate GI PAIN, Verified 09/01/23 14:30 upset stomach hazelnut Allergy Unknown Unknown Verified 09/01/23 14:30 shellfish derived Allergy Unknown Unknown Verified 09/01/23 14:30 gluten Allergy Unknown Verified 09/01/23 14:30 sesame seeds Allergy Unknown Unknown Uncoded 08/19/23 12:12 Active Medications: Current Medications Divalproex Sodium (Divalproex Sodium 250 Mg Tablet.) 250 mg PO BEDTIME [facility] Last Admin: 10/04/23 22:34 Dose: 250 mg Divalproex Sodium (Divalproex Sodium 500 Mg Tablet.) 500 mg PO BID [facility] Last Admin: 10/05/23 07:47 Dose: 500 mg Levothyroxine Sodium (Levothyroxine Sodium 150 Mcg Tablet) 150 mcg PO DAILY@0600 [facility] Last Admin: 10/05/23 05:39 Dose: 150 mcg Metoprolol Succinate (Metoprolol Succinate Er 50 Mg Tab.Er.24h) 50 mg PO BEDTIME [facility]; Protocol Last Admin: 10/04/23 22:35 Dose: 50 mg Eluxadoline [Viberzi (] 75 Mg Tablet) 1 each PO BID [facility] Last Admin: 10/03/23 21:38 Dose: Not Given Oxycodone HCl (Oxycodone Hcl Immed Release 5 Mg Tablet) 5 mg PO Q4H PRN PRN Reason: Pain, Moderate(Pain Scale 4-6) Last Admin: 10/03/23 05:27 Dose: 5 mg Rivaroxaban (Rivaroxaban 20 Mg Tablet) 20 mg PO DAILY@1700 [facility] Last Admin: 10/03/23 17:40 Dose: 20 mg Trazodone HCl (Trazodone Hcl 25 Mg Halftab) 225 mg PO BEDTIME [facility] Last Admin: 10/04/23 22:34 Dose: 225 mg Home Medications Medication Instructions Recorded Confirmed Last Taken Type trazodone 150 mg tablet 225 mg PO BEDTIME 07/09/22 09/30/23 06/28/23 History divalproex 250 mg tablet,delayed 250 mg PO BEDTIME 06/10/23 09/30/23 06/28/23 History release divalproex 500 mg tablet,delayed 500 mg PO BID 06/10/23 09/30/23 06/29/23 History release metoprolol succinate 50 mg 50 mg PO BEDTIME 06/29/23 09/30/23 06/28/23 History tablet,extended release 24 hr eluxadoline 75 mg tablet (Viberzi) 75 mg PO BID 09/04/23 09/30/23 Unknown History Exam Height,Weight and Vital Signs: Height 5 ft 3 in Weight 59.8 kg Last Vital Signs Temp 97 F 10/05/23 13:38 Pulse 110 H 10/05/23 13:38 Resp 20 10/05/23 13:38 BP 145/72 H 10/05/23 13:38 Pulse Ox 92 10/05/23 13:38 O2 Del Method Room Air 10/05/23 13:38 O2 Flow Rate 2.5 10/05/23 07:35 Pertinent Lab Results Pertinent Lab Results: Laboratory Tests 09/29/23 09/29/23 09/29/23 19:13 21:06 22:27 WBC 7.8 RBC 4.18 L Hgb 13.0 Hct 39.3 MCV 94.0 MCH 31.1 MCHC 33.1 RDW 13.0 Plt Count 200 MPV 8.8 L Immature Gran % (Auto) 0.5 H Neut % (Auto) 64.2 Lymph % (Auto) 22.5 [place] % (Auto) 11.0 Eos % (Auto) 1.4 Baso % (Auto) 0.4 Lymph # (Auto) 1.8 [place] # (Auto) 0.9 Eos # (Auto) 0.1 Baso # (Auto) 0.0 Abs Immat Gran (auto) 0.04 H Absolute Neuts (auto) 5.0 Absolute Nucleated RBC 0.000 Nucleated RBC % (auto) 0.0 Sodium 134 L Potassium 4.1 Chloride 101 Carbon Dioxide 25 Anion Gap 12 BUN 7 L Creatinine 0.68 Estim Creat Clear Calc 67.2 Estimated GFR > 60 POC Glucose Random Glucose 139 H Fasting Glucose Estimat Average Glucose 140 Hemoglobin A1c % 6.5 H Lactic Acid 3.3 H* Lactic Acid F/U @ 2Hr 2.5 H* Lactic Acid F/U @ 4Hr Calcium 8.2 L D Magnesium Total Bilirubin 0.4 AST 25 ALT 12 Alkaline Phosphatase 73 B-Natriuretic Peptide 230 H Total Protein 6.9 Albumin 3.0 L Lipase 22 Urine Color Urine Appearance Urine pH Ur Specific [place] Urine Protein Urine Glucose (UA) Urine Ketones Urine Blood Urine Nitrite Ur Leukocyte Esterase Urine RBC Urine WBC Ur Squamous Epith Cells Urine Bacteria Hyaline Casts Stl C. cayetanensis PCR Not Detected Stool Rotavirus A PCR Not Detected Stl Adenov F 40/41 PCR Not Detected Stool Astrovirus (PCR) Not Detected Stool Campylobacter PCR Not Detected Stool Cryptosporidium PCR Not Detected Stl Sh Tox Pr E STEC PCR Not Detected Stool E coli O157 PCR Not applicable Stl Enterotoxigenic E PCR Not Detected Stool EPEC (PCR) Not Detected Stool EAEC (PCR) Not Detected Stl E. histolytica PCR Not Detected Stool Giardia Lamblia PCR Not Detected Stl P. shigelloides PCR Not Detected Stool Salmonella PCR Not Detected Stool Sapovirus (PCR) Not Detected Stl Shigella/EIEC PCR Not Detected St Y.enterocolitica PCR Not Detected Stool Vibrio (PCR) Not Detected Stl Vibrio cholerae PCR Not Detected Stl Norovirus GI/GII PCR Not Detected C. difficile Tox B Gene Influenza Type A (PCR) NEGATIVE Influenza Type B (PCR) NEGATIVE RSV RNA Qual (PCR) NEGATIVE SARS-CoV-2 RNA (RT-PCR) NEGATIVE 09/30/23 09/30/23 10/01/23 01:01 02:20 05:45 WBC 6.6 RBC 3.60 L Hgb 11.2 L Hct 35.2 L MCV 97.8 MCH 31.1 MCHC 31.8 RDW 13.4 Plt Count 163 MPV 9.4 Immature Gran % (Auto) Neut % (Auto) Lymph % (Auto) [place] % (Auto) Eos % (Auto) Baso % (Auto) Lymph # (Auto) [place] # (Auto) Eos # (Auto) Baso # (Auto) Abs Immat Gran (auto) Absolute Neuts (auto) Absolute Nucleated RBC 0.000 Nucleated RBC % (auto) 0.0 Sodium 143 Potassium 4.1 Chloride 108 Carbon Dioxide 26 Anion Gap 13 BUN 10 Creatinine 0.65 Estim Creat Clear Calc 70.4 Estimated GFR > 60 POC Glucose Random Glucose Fasting Glucose 123 H Estimat Average Glucose Hemoglobin A1c % Lactic Acid Lactic Acid F/U @ 2Hr Lactic Acid F/U @ 4Hr 1.8 Calcium 8.4 Magnesium 2.1 Total Bilirubin AST ALT Alkaline Phosphatase B-Natriuretic Peptide Total Protein Albumin Lipase Urine Color Yellow Urine Appearance Clear Urine pH 6.0 Ur Specific [place] 1.025 Urine Protein Negative Urine Glucose (UA) Negative Urine Ketones Negative Urine Blood Negative Urine Nitrite Negative Ur Leukocyte Esterase Moderate (2+) H Urine RBC 0-2 Urine WBC 11-20 H Ur Squamous Epith Cells 0-2 Urine Bacteria None Seen Hyaline Casts 0-2 Stl C. cayetanensis PCR Stool Rotavirus A PCR Stl Adenov F 40/41 PCR Stool Astrovirus (PCR) Stool Campylobacter PCR Stool Cryptosporidium PCR Stl Sh Tox Pr E STEC PCR Stool E coli O157 PCR Stl Enterotoxigenic E PCR Stool EPEC (PCR) Stool EAEC (PCR) Stl E. histolytica PCR Stool Giardia Lamblia PCR Stl P. shigelloides PCR Stool Salmonella PCR Stool Sapovirus (PCR) Stl Shigella/EIEC PCR St Y.enterocolitica PCR Stool Vibrio (PCR) Stl Vibrio cholerae PCR Stl Norovirus GI/GII PCR C. difficile Tox B Gene Influenza Type A (PCR) Influenza Type B (PCR) RSV RNA Qual (PCR) SARS-CoV-2 RNA (RT-PCR) 10/01/23 10/01/23 10/01/23 08:56 12:15 21:00 WBC RBC Hgb Hct MCV MCH MCHC RDW Plt Count MPV Immature Gran % (Auto) Neut % (Auto) Lymph % (Auto) [place] % (Auto) Eos % (Auto) Baso % (Auto) Lymph # (Auto) [place] # (Auto) Eos # (Auto) Baso # (Auto) Abs Immat Gran (auto) Absolute Neuts (auto) Absolute Nucleated RBC Nucleated RBC % (auto) Sodium Potassium Chloride Carbon Dioxide Anion Gap BUN Creatinine Estim Creat Clear Calc Estimated GFR POC Glucose 145 H Random Glucose Fasting Glucose Estimat Average Glucose Hemoglobin A1c % Lactic Acid Lactic Acid F/U @ 2Hr Lactic Acid F/U @ 4Hr Calcium Magnesium Total Bilirubin AST ALT Alkaline Phosphatase B-Natriuretic Peptide Total Protein Albumin Lipase Urine Color Yellow Urine Appearance Hazy Urine pH 6.0 Ur Specific [place] 1.025 Urine Protein Trace Urine Glucose (UA) Negative Urine Ketones Trace Urine Blood Moderate (2+) H Urine Nitrite Negative Ur Leukocyte Esterase Small (1+) H Urine RBC 11-20 H Urine WBC >50 H Ur Squamous Epith Cells 3-5 Urine Bacteria None Seen Hyaline Casts 0-2 Stl C. cayetanensis PCR Stool Rotavirus A PCR Stl Adenov F 40/41 PCR Stool Astrovirus (PCR) Stool Campylobacter PCR Stool Cryptosporidium PCR Stl Sh Tox Pr E STEC PCR Stool E coli O157 PCR Stl Enterotoxigenic E PCR Stool EPEC (PCR) Stool EAEC (PCR) Stl E. histolytica PCR Stool Giardia Lamblia PCR Stl P. shigelloides PCR Stool Salmonella PCR Stool Sapovirus (PCR) Stl Shigella/EIEC PCR St Y.enterocolitica PCR Stool Vibrio (PCR) Stl Vibrio cholerae PCR Stl Norovirus GI/GII PCR C. difficile Tox B Gene NEGATIVE Influenza Type A (PCR) Influenza Type B (PCR) RSV RNA Qual (PCR) SARS-CoV-2 RNA (RT-PCR) 10/02/23 10/02/23 10/02/23 07:53 11:04 16:32 WBC RBC Hgb Hct MCV MCH MCHC RDW Plt Count MPV Immature Gran % (Auto) Neut % (Auto) Lymph % (Auto) [place] % (Auto) Eos % (Auto) Baso % (Auto) Lymph # (Auto) [place] # (Auto) Eos # (Auto) Baso # (Auto) Abs Immat Gran (auto) Absolute Neuts (auto) Absolute Nucleated RBC Nucleated RBC % (auto) Sodium Potassium Chloride Carbon Dioxide Anion Gap BUN Creatinine Estim Creat Clear Calc Estimated GFR POC Glucose 123 H 145 H 167 H Random Glucose Fasting Glucose Estimat Average Glucose Hemoglobin A1c % Lactic Acid Lactic Acid F/U @ 2Hr Lactic Acid F/U @ 4Hr Calcium Magnesium Total Bilirubin AST ALT Alkaline Phosphatase B-Natriuretic Peptide Total Protein Albumin Lipase Urine Color Urine Appearance Urine pH Ur Specific [place] Urine Protein Urine Glucose (UA) Urine Ketones Urine Blood Urine Nitrite Ur Leukocyte Esterase Urine RBC Urine WBC Ur Squamous Epith Cells Urine Bacteria Hyaline Casts Stl C. cayetanensis PCR Stool Rotavirus A PCR Stl Adenov F 40/41 PCR Stool Astrovirus (PCR) Stool Campylobacter PCR Stool Cryptosporidium PCR Stl Sh Tox Pr E STEC PCR Stool E coli O157 PCR Stl Enterotoxigenic E PCR Stool EPEC (PCR) Stool EAEC (PCR) Stl E. histolytica PCR Stool Giardia Lamblia PCR Stl P. shigelloides PCR Stool Salmonella PCR Stool Sapovirus (PCR) Stl Shigella/EIEC PCR St Y.enterocolitica PCR Stool Vibrio (PCR) Stl Vibrio cholerae PCR Stl Norovirus GI/GII PCR C. difficile Tox B Gene Influenza Type A (PCR) Influenza Type B (PCR) RSV RNA Qual (PCR) SARS-CoV-2 RNA (RT-PCR) 10/02/23 10/03/23 10/03/23 20:08 07:43 11:55 WBC RBC Hgb Hct MCV MCH MCHC RDW Plt Count MPV Immature Gran % (Auto) Neut % (Auto) Lymph % (Auto) [place] % (Auto) Eos % (Auto) Baso % (Auto) Lymph # (Auto) [place] # (Auto) Eos # (Auto) Baso # (Auto) Abs Immat Gran (auto) Absolute Neuts (auto) Absolute Nucleated RBC Nucleated RBC % (auto) Sodium Potassium Chloride Carbon Dioxide Anion Gap BUN Creatinine Estim Creat Clear Calc Estimated GFR POC Glucose 167 H 127 H 118 H Random Glucose Fasting Glucose Estimat Average Glucose Hemoglobin A1c % Lactic Acid Lactic Acid F/U @ 2Hr Lactic Acid F/U @ 4Hr Calcium Magnesium Total Bilirubin AST ALT Alkaline Phosphatase B-Natriuretic Peptide Total Protein Albumin Lipase Urine Color Urine Appearance Urine pH Ur Specific [place] Urine Protein Urine Glucose (UA) Urine Ketones Urine Blood Urine Nitrite Ur Leukocyte Esterase Urine RBC Urine WBC Ur Squamous Epith Cells Urine Bacteria Hyaline Casts Stl C. cayetanensis PCR Stool Rotavirus A PCR Stl Adenov F 40/41 PCR Stool Astrovirus (PCR) Stool Campylobacter PCR Stool Cryptosporidium PCR Stl Sh Tox Pr E STEC PCR Stool E coli O157 PCR Stl Enterotoxigenic E PCR Stool EPEC (PCR) Stool EAEC (PCR) Stl E. histolytica PCR Stool Giardia Lamblia PCR Stl P. shigelloides PCR Stool Salmonella PCR Stool Sapovirus (PCR) Stl Shigella/EIEC PCR St Y.enterocolitica PCR Stool Vibrio (PCR) Stl Vibrio cholerae PCR Stl Norovirus GI/GII PCR C. difficile Tox B Gene Influenza Type A (PCR) Influenza Type B (PCR) RSV RNA Qual (PCR) SARS-CoV-2 RNA (RT-PCR) 10/03/23 10/03/23 10/04/23 16:14 19:54 07:53 WBC RBC Hgb Hct MCV MCH MCHC RDW Plt Count MPV Immature Gran % (Auto) Neut % (Auto) Lymph % (Auto) [place] % (Auto) Eos % (Auto) Baso % (Auto) Lymph # (Auto) [place] # (Auto) Eos # (Auto) Baso # (Auto) Abs Immat Gran (auto) Absolute Neuts (auto) Absolute Nucleated RBC Nucleated RBC % (auto) Sodium Potassium Chloride Carbon Dioxide Anion Gap BUN Creatinine Estim Creat Clear Calc Estimated GFR POC Glucose 157 H 138 H 110 Random Glucose Fasting Glucose Estimat Average Glucose Hemoglobin A1c % Lactic Acid Lactic Acid F/U @ 2Hr Lactic Acid F/U @ 4Hr Calcium Magnesium Total Bilirubin AST ALT Alkaline Phosphatase B-Natriuretic Peptide Total Protein Albumin Lipase Urine Color Urine Appearance Urine pH Ur Specific [place] Urine Protein Urine Glucose (UA) Urine Ketones Urine Blood Urine Nitrite Ur Leukocyte Esterase Urine RBC Urine WBC Ur Squamous Epith Cells Urine Bacteria Hyaline Casts Stl C. cayetanensis PCR Stool Rotavirus A PCR Stl Adenov F 40/41 PCR Stool Astrovirus (PCR) Stool Campylobacter PCR Stool Cryptosporidium PCR Stl Sh Tox Pr E STEC PCR Stool E coli O157 PCR Stl Enterotoxigenic E PCR Stool EPEC (PCR) Stool EAEC (PCR) Stl E. histolytica PCR Stool Giardia Lamblia PCR Stl P. shigelloides PCR Stool Salmonella PCR Stool Sapovirus (PCR) Stl Shigella/EIEC PCR St Y.enterocolitica PCR Stool Vibrio (PCR) Stl Vibrio cholerae PCR Stl Norovirus GI/GII PCR C. difficile Tox B Gene Influenza Type A (PCR) Influenza Type B (PCR) RSV RNA Qual (PCR) SARS-CoV-2 RNA (RT-PCR) 10/04/23 10/04/23 10/05/23 11:27 16:22 07:38 WBC RBC Hgb Hct MCV MCH MCHC RDW Plt Count MPV Immature Gran % (Auto) Neut % (Auto) Lymph % (Auto) [place] % (Auto) Eos % (Auto) Baso % (Auto) Lymph # (Auto) [place] # (Auto) Eos # (Auto) Baso # (Auto) Abs Immat Gran (auto) Absolute Neuts (auto) Absolute Nucleated RBC Nucleated RBC % (auto) Sodium Potassium Chloride Carbon Dioxide Anion Gap BUN Creatinine Estim Creat Clear Calc Estimated GFR POC Glucose 203 H 132 H 98 Random Glucose Fasting Glucose Estimat Average Glucose Hemoglobin A1c % Lactic Acid Lactic Acid F/U @ 2Hr Lactic Acid F/U @ 4Hr Calcium Magnesium Total Bilirubin AST ALT Alkaline Phosphatase B-Natriuretic Peptide Total Protein Albumin Lipase Urine Color Urine Appearance Urine pH Ur Specific [place] Urine Protein Urine Glucose (UA) Urine Ketones Urine Blood Urine Nitrite Ur Leukocyte Esterase Urine RBC Urine WBC Ur Squamous Epith Cells Urine Bacteria Hyaline Casts Stl C. cayetanensis PCR Stool Rotavirus A PCR Stl Adenov F 40/41 PCR Stool Astrovirus (PCR) Stool Campylobacter PCR Stool Cryptosporidium PCR Stl Sh Tox Pr E STEC PCR Stool E coli O157 PCR Stl Enterotoxigenic E PCR Stool EPEC (PCR) Stool EAEC (PCR) Stl E. histolytica PCR Stool Giardia Lamblia PCR Stl P. shigelloides PCR Stool Salmonella PCR Stool Sapovirus (PCR) Stl Shigella/EIEC PCR St Y.enterocolitica PCR Stool Vibrio (PCR) Stl Vibrio cholerae PCR Stl Norovirus GI/GII PCR C. difficile Tox B Gene Influenza Type A (PCR) Influenza Type B (PCR) RSV RNA Qual (PCR) SARS-CoV-2 RNA (RT-PCR) 10/05/23 10/05/23 11:17 13:47 WBC RBC Hgb Hct MCV MCH MCHC RDW Plt Count MPV Immature Gran % (Auto) Neut % (Auto) Lymph % (Auto) [place] % (Auto) Eos % (Auto) Baso % (Auto) Lymph # (Auto) [place] # (Auto) Eos # (Auto) Baso # (Auto) Abs Immat Gran (auto) Absolute Neuts (auto) Absolute Nucleated RBC Nucleated RBC % (auto) Sodium Potassium Chloride Carbon Dioxide Anion Gap BUN Creatinine Estim Creat Clear Calc Estimated GFR POC Glucose 114 116 H Random Glucose Fasting Glucose Estimat Average Glucose Hemoglobin A1c % Lactic Acid Lactic Acid F/U @ 2Hr Lactic Acid F/U @ 4Hr Calcium Magnesium Total Bilirubin AST ALT Alkaline Phosphatase B-Natriuretic Peptide Total Protein Albumin Lipase Urine Color Urine Appearance Urine pH Ur Specific [place] Urine Protein Urine Glucose (UA) Urine Ketones Urine Blood Urine Nitrite Ur Leukocyte Esterase Urine RBC Urine WBC Ur Squamous Epith Cells Urine Bacteria Hyaline Casts Stl C. cayetanensis PCR Stool Rotavirus A PCR Stl Adenov F 40/41 PCR Stool Astrovirus (PCR) Stool Campylobacter PCR Stool Cryptosporidium PCR Stl Sh Tox Pr E STEC PCR Stool E coli O157 PCR Stl Enterotoxigenic E PCR Stool EPEC (PCR) Stool EAEC (PCR) Stl E. histolytica PCR Stool Giardia Lamblia PCR Stl P. shigelloides PCR Stool Salmonella PCR Stool Sapovirus (PCR) Stl Shigella/EIEC PCR St Y.enterocolitica PCR Stool Vibrio (PCR) Stl Vibrio cholerae PCR Stl Norovirus GI/GII PCR C. difficile Tox B Gene Influenza Type A (PCR) Influenza Type B (PCR) RSV RNA Qual (PCR) SARS-CoV-2 RNA (RT-PCR) Airway Mallampati Class: II TM Dist: <=3cm Denture: Upper and Lower Heart: Afib Lungs: Sat 92% room air Assessment and Plan Assessment Anesthesia Assessment: Anesthesia Plan Discussed and Chart Reviewed Final Anesthetic Review Family History of Problems with Anesthesia: No History of Problems with Anesthesia: No NPO: Yes ASA Class: IV Final Preanesthetic Review: No Changes in Pt Med Stat, Meds/Allgs Chart Reviewed, Consent Obtained/Reviewed and Anes Risks/Benef Reviewed Patient Risk: High Procedure Risk: Intermediate Anesthetic Plan Anesthetic Plan: MAC: and Agree w/ Assess. and Plan Disposition: Standard PACU
--- NOTE | 2023-10-05 14:50 | MHC.SHP ---
Pre-Procedural Eval Section A Date of Service: 10/05/23 The patient is an INPATIENT: Yes Changes since office visit: Yes New Medical Problems, Yes Changes in Medication and Yes Patient answered all questions; No Cold of Flu in the past 2 weeks The History & Physical has been completed within 30 days and I have reviewed it.: Yes Section B Chief Complaint: Sepsis Allergies: Allergies Allergy/AdvReac Type Severity Reaction Status Date / Time aspirin [ASA] Allergy Intermediate GI PAIN, Verified 09/01/23 14:30 upset stomach hazelnut Allergy Unknown Unknown Verified 09/01/23 14:30 shellfish derived Allergy Unknown Unknown Verified 09/01/23 14:30 gluten Allergy Unknown Verified 09/01/23 14:30 sesame seeds Allergy Unknown Unknown Uncoded 08/19/23 12:12 Plan Diagnosis/Plan: Unchanged I have reviewed the history and physical and performed a pertinent physical examination on my patient. No changes have occurred unless specified. Time Spent With Patient Time: Total time managing care of this patient today ____ minutes.
--- NOTE | 2023-10-05 15:44 | W.PM.OPN ---
Operative Note Operative Note Date of Service: 10/05/23 Narrative: FLEXIBLE TRANSORAL UPPER GASTROINTESTINAL ENDOSCOPY WITH BIOPSIES AND COLONOSCOPY TILL CECUM WITH BIOPSIES AND SNARE POLYPECTOMY Pre-op diagnosis: Chronic diarrhea, suspected celiac disease Post-op diagnosis: Gastritis, colon polyps, diverticulosis, hemorrhoids? Endoscopist:? Fartun Feldman MD Anesthesia:?MAC UPPER ENDOSCOPY Consent: Indications for the procedure and potential complications of bleeding, perforation, reaction to medications and missed diagnosis were discussed with the patient and informed consent was obtained. Instrument: Olympus GIF H 190 mid size upper endoscope Monitoring: Vital signs and clinical assessment, continuous EKG monitoring, Pulse oximetry, Carbon Dioxide monitoring and blood pressure monitoring were done throughout the procedure. Procedure: The patient was placed in the left lateral decubitis position and pre-procedure medications were administered and a bite block was placed. The endoscope was inserted into the mouth and advanced under direct vision to the third part of duodenum. A careful inspection was made as the upper endoscope was withdrawn including a retroflexed examination of the proximal stomach; Findings and interventions are described below. Findings: Larynx: Normal Esophagus: GE junction at 38 cms. No esophagitis or Quiñonez's. Stomach: Moderate diffuse gastric erythema with prominent gastric folds in the gastric body along the greater curvature - biopsied. Antral biopsies were obtained to check for H pylori Grade 2 flap valve on retroflexed examination of the cardia. Duodenum: Normal bulb and descending duodenum. Random biopsies were obtained from 3rd part of the duodenum to check for celiac sprue Intervention: Biopsies as noted above COLONOSCOPY PROCEDURE NOTE Consent: Indications for the procedure and potential complications of bleeding, perforation, reaction to medications and missed diagnosis were discussed with the patient and informed consent was obtained. Instrument: Olympus PCF H 190 L variable stiffness pediatric colonoscope Monitoring: Vital signs and clinical assessment, intermittent blood pressure monitoring, continuous EKG monitoring, Pulse oximetry and Carbon Dioxide monitoring were done throughout the procedure. Colon withdrawl time was 20 minutes. Procedure: The patient was placed in the left lateral decubitis position and pre-procedure medications were administered. After a digital rectal examination of the ano-rectum, the video colonoscope was inserted into the rectum and advanced through the colon to the cecum. The colonoscope was slowly withdrawn in a retrograde panoramic fashion and the colon mucosa was carefully examined including a retroflexed view of the rectum. Findings and interventions are described below. Procedure Difficulty: : Without difficulty Findings: Terminal Ileum: Distal 7-8 cms was examined and appeared normal. Biopsies were obtained to check for Crohn's disease Cecum: Normal Ascending Colon: Friable mucosa without ulcers - random biopsies were obtained from right and left colon Transverse Colon: Friable mucosa without ulcers - random biopsies were obtained from right and left colon Descending Colon: A 2-3 mm sessile polyp - removed with a cold biopsy Friable mucosa without ulcers - random biopsies were obtained from right and left colon Sigmoid Colon: A 10-12 mm sessile polyp at 20 cms - removed with a hot snare. Polypectomy site was closed with 1 hemoclip. Mild diverticulosis Rectum: Normal Ano-rectum: Small internal hemorrhoids Colon preparation: Excellent Impression and Post Procedure Diagnosis: Endoscopy Findings: STOMACH: Moderate diffuse gastric erythema with prominent gastric folds in the gastric body along the greater curvature - biopsied. Antral biopsies were obtained to check for H pylori DUODENUM: Normal - biopsied to check for celiac sprue Colonoscopy Findings: One small and one medium sized polyps removed Friable mucosa without ulcers throughout the colon - random biopsies were obtained from right and left colon to check for microscopic colitis Mild diverticulosis seen in the sigmoid colon Small hemorrhoids on retroflexed exam. Plan: I will contact the patient with pathology results Resume Shyann on 10/10/23. Patient has an appointment on 10/11/23 in the GI Clinic with Deidra Stubbs NP. Repeat Colonoscopy interval based on path results - in 3-5 years if polyps are adenomatous and 10 years if polyps are hyperplastic. Above findings were reviewed with the patient and her daughter by phone. BIOPSIES SHOWED: A. Small bowel, biopsy: Small intestinal mucosa within normal limits; negative for celiac disease. B. Stomach, antrum, biopsy: Antral-type mucosa with moderate chronic, focally active, inflammation; no Helicobacter organisms seen. C. Stomach, body, biopsy: - Oxyntic mucosa with moderate chronic, focally active, inflammation. - Positive for H pylori. D. Terminal ileum, biopsy: Small intestinal mucosa within normal limits; negative for inflammatory bowel disease. E. Colon, right, biopsy: Colonic mucosa within normal limits; negative for microscopic colitis. F. Colon, transverse, polypectomy: Colonic mucosa with mild surface hyperplastic changes. G. Colon, left, biopsy: Colonic mucosa within normal limits; negative for microscopic colitis. H. Colon, sigmoid, polypectomy: Tubular adenoma; negative for high-grade dysplasia or carcinoma Results reviewed with the patient and [place] [facility] [place] Patient was advised to continue with Eluxadoline (Viberzi) 75 mg twice a day and holds one dose if she does not have a BM for several hours. reports diarrhea episodes of bowel accident have improved with improvement in stool consistency She still gets intermittent episodes of diarrhea without clear precipitating factors.
[2023-10-05] MEDS: Metoprolol Tartrate 5 MG/5 ML VIAL 2.5 MG IVPUSH (16:00)
[2023-10-05 19:04] LABS: Glucose, Whole Blood 109 mg/dL (60-115)
[2023-10-05 20:45] LABS: Glucose, Whole Blood 186 mg/dL (60-115)
[2023-10-05] MEDS: traZODone HCL 25 MG HALFTAB 225 MG PO (21:21)
[2023-10-05] MEDS: Metoprolol Succinate ER 50 MG TAB.ER.24H PO (21:21)
[2023-10-05] MEDS: Divalproex Sodium 250 MG TABLET.DR PO (21:22)
[2023-10-06] VITALS (9 sets, daily range): BP systolic 102–116; BP diastolic 55–76; PULSE 89–105; RESP 16–20; TEMP 36–36.7; O2SAT 86–97
[2023-10-06] MEDS: Levothyroxine Sodium 150 MCG TABLET PO (05:06)
[2023-10-06 07:04] LABS: Glucose, Whole Blood 99 mg/dL (60-115)
[2023-10-06] MEDS: Divalproex Sodium 500 MG TABLET.DR PO ×2 (09:41→20:34)
[2023-10-06 12:36] LABS: Glucose, Whole Blood 113 mg/dL (60-115)
--- NOTE | 2023-10-06 13:45 | HO.POSTANES ---
Post Anesthesia Evaluation Post Anesthesia Evaluation Date of Service: 10/06/23 Vital Signs: Vital Signs Temp Pulse Resp BP Pulse Ox O2 Del Method O2 Flow Rate 10/06/23 11:02 98.0 F 94 20 107/68 97 Nasal Cannula 3 10/06/23 07:16 97.9 F 89 20 102/55 L 95 Nasal Cannula 2 10/06/23 03:37 97.2 F 105 H 16 110/68 95 Nasal Cannula 2 Anesthesia: Monitored Mental Status: Awake Pain Control: Satisfactory Nausea/Vomiting: None Hydration: Adequate Anesthesia-Related Issues: No Anes. Related Issues
[2023-10-06 15:15] LABS: Glucose, Whole Blood 125 mg/dL (60-115)
[2023-10-06 16:23] LABS: Immunoglobulin A 415 mg/dL (70-320)
--- NOTE | 2023-10-06 18:07 | P.PNIM_ITS ---
Subjective Subjective Date of Service: 10/06/23 Interval History: seen and examined this morning follow up for UTI, diarrhea s/p EGD/colonoscopy no overnight events feeling well Review of Systems Review of Systems: Yes all other systems are reviewed and are negative Constitutional Constitutional: Denies chills and Denies fever(s) Physical Exam 2 Vital Signs: Vital Signs: Last Vital Signs Temp 97.3 F 10/06/23 15:15 Pulse 99 10/06/23 15:15 Resp 20 10/06/23 15:15 BP 110/76 10/06/23 15:15 Pulse Ox 94 10/06/23 15:15 O2 Del Method Nasal Cannula 10/06/23 15:15 O2 Flow Rate 3 10/06/23 11:02 BMI result Body Mass Index 45.9 Const: General: cooperative, comfortable, no acute distress, alert and awake Nutritional Appearance: overweight Orientation/consciousness: oriented to person and oriented to place Resp: Effort & Inspection: normal respiratory effort, able to speak in complete sentences, no respiratory distress and no use of accessory muscles Cardio: Rate: regular rate GI: Inspection: No distended Palpation (GI): Soft to palpation and nontender Neuro: General: oriented to person, oriented to place, moves all extremities and CN's II-XI intact bilaterally Extrem: General: Yes no pedal edema Objective Data Active Medications Divalproex Sodium (Divalproex Sodium 250 Mg Tablet.) 250 mg PO BEDTIME [facility] Last Admin: 10/05/23 21:22 Dose: 250 mg Documented By: RAÚL Divalproex Sodium (Divalproex Sodium 500 Mg Tablet.) 500 mg PO BID [facility] Last Admin: 10/06/23 09:41 Dose: 500 mg Documented By: FESTUS Levothyroxine Sodium (Levothyroxine Sodium 150 Mcg Tablet) 150 mcg PO DAILY@0600 [facility] Last Admin: 10/06/23 05:06 Dose: 150 mcg Documented By: BALA Metoprolol Succinate (Metoprolol Succinate Er 50 Mg Tab.Er.24h) 50 mg PO BEDTIME [facility]; Protocol Last Admin: 10/05/23 21:21 Dose: 50 mg Documented By: RAÚL Eluxadoline [Viberzi (] 75 Mg Tablet) 1 each PO BID [facility] Last Admin: 12/07/23 09:45 Dose: Not Given Documented By: FESTUS Non-Admin Reason: cannot find medication Rivaroxaban (Rivaroxaban 20 Mg Tablet) 20 mg PO DAILY@1700 [facility] Last Admin: 10/03/23 17:40 Dose: 20 mg Documented By: FREDY Trazodone HCl (Trazodone Hcl 25 Mg Halftab) 225 mg PO BEDTIME [facility] Last Admin: 10/05/23 21:21 Dose: 225 mg Documented By: RAÚL Labs 10/01/23 05:45 10/01/23 05:45 Labs: Laboratory Results - last 24 hr 10/04/23 10/05/23 10/05/23 05:54 17:11 20:40 POC Glucose 109 186 H IgA 415 H 10/06/23 10/06/23 10/06/23 06:54 12:32 15:11 POC Glucose 99 113 125 H IgA Assessment and Plan (1) Fever: Status: Acute Plan 68F PMH HTN, paroxysmal afib, bipolar, cdif colonizer, IBS, ?DM, hypothyroid, presented with ams, diarrhea, fever with concern for sepsis due to UTI Acute and chronic diarrhea with history of cdiff colonization recently completed 14 days of po vanco stool panel negative, cdiff negative family reports significant persistent diarrhea at baseline h/o celiac - add gluten free restriction to diet follows outpatient with GI for diarrhea, has been on cholestyramine and currently on Viberzi s/p EGD/colonoscopy - showed gastritis and 2 polyps. no evidence of IBD hold Viberzi and xarelto - resume xarelto 10/10 Sepsis and acute metabolic encephalopathy. Sepsis resolved met sepsis criteria with fever and tachycardia, no leukocytosis initially thought to be related to UTI, has recent history of Pseudomoas and ct with signs of cystitis urine cx negative, s/p cefepime 5 days flu, covid, RSV negative; CXR negative for pna bladder nodule and thickening will need outpatient cystoscopy history of DM A1C of 6.5, diet controlled diabetic diet follow POCs paroxysmal afib with rvr s/p IV cardizem HR controlled continue toprol hold xarelto in light of colonoscopy bipolar depakote htn toprol hypothyroid synthroid dvt prophylaxis - xarelto on hold for colonoscopy full code attending - dr. Galdamez DISPO plan for dc home when medically clear - likely tomorrow need for inpatient, sepsis, at risk for further decompensation due to poor functional reserve Quality Stroke Does the patient have a stroke diagnosis?: No VTE Prior VTE?: No VTE Risk Level:: Medical - moderate - high VTE Device Contraindication: Treatment Not Indicated VTE Drug Contraindication: N/A - Med Ordered
[2023-10-06] MEDS: traZODone HCL 25 MG HALFTAB 225 MG PO (20:34)
[2023-10-06] MEDS: Divalproex Sodium 250 MG TABLET.DR PO (20:34)
[2023-10-06] MEDS: Metoprolol Succinate ER 50 MG TAB.ER.24H PO (20:34)
[2023-10-06 20:56] LABS: Glucose, Whole Blood 148 mg/dL (60-115)
[2023-10-07 04:00] VITALS: BP 108/60; PULSE 94; RESP 18; TEMP 36; O2SAT 95
[2023-10-07] MEDS: Levothyroxine Sodium 150 MCG TABLET PO (05:44)
[2023-10-07 08:00] VITALS: BP 103/66; PULSE 96; RESP 20; TEMP 36.6; O2SAT 95
[2023-10-07 08:01] LABS: Glucose, Whole Blood 98 mg/dL (60-115)
[2023-10-07] MEDS: Divalproex Sodium 500 MG TABLET.DR PO (08:34)
--- NOTE | 2023-10-07 10:37 | MHC.CM.PN ---
Per PA, Patient will be medically cleared for dc to home today with services. Patient is active with [facility], who has been made aware of today's dc. CM met with Patient at bedside and addressed IMM with her, original was given to Patient and a copy has been placed on the chart. 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
[2023-10-07 11:33] VITALS: BP 121/70; PULSE 96; RESP 20; TEMP 35.9; O2SAT 91
[2023-10-07 11:46] LABS: Glucose, Whole Blood 210 mg/dL (60-115)
--- NOTE | 2023-10-07 11:48 | P.DS_ITS ---
DS: Providers Provider Date of Service: 10/07/23 Date of admission: 09/30/23 02:19 Date of discharge: 10/07/23 Primary care physician: Adithya Gutierrez MD Consults: 09/30/23 11:25 Consult to Infectious Diseases [place]ine Consulting [place] [facility] [place] Reason for consultation: recurrent c dif, pseudomonas uti Has provider been notified: No 10/03/23 13:55 Consult to Gastroenterology Routine Consulting Provider: Fartun Feldman Reason for consultation: diarrhea 10/05/23 08:18 Consult to Wound Care Routine Reason for consultation: Sacral wound Attending physician on discharge: Panchito Galdamez Discharging clinician: Lora Garrison DS: Diagnosis Discharge Diagnosis (1) Fever: Status: Acute (2) Atrial fibrillation: Status: Acute (3) Diarrhea: Status: Inactive (4) UTI (urinary tract infection): Status: Acute DS: Summary Hospital Course Hospital Course: From H&P on day of admission 68F PMH HTN, paroxysmal afib, bipolar, cdif colonizer, IBS, ?DM, hypothyroid, presented with ams, diarrhea, fever. patient with chronic diarrhea, was recently treated for uti and given concomitant vanco for cdif colonization. just finished course and started to have diarrhea again, weakness, difficulty ambulating. called EMS. in ED noted to be septic, fever 102.3, afib with rvr 146. ct abd with possible cystitis, unable to obtain UA. patient currently lethargic, poor historian, no specific complaints. lives at home with , reports normally ambulates with walker, but very weak now. Acute and chronic diarrhea with history of cdiff colonization. recently completed 14 days of po vanco. stool panel negative, cdiff negative family reports significant persistent diarrhea at baseline. h/o celiac - add gluten free restriction to diet. follows outpatient with GI for diarrhea, has been on cholestyramine and currently on Viberzi. She was seen by GI and ultimately had EGD/colonoscopy which showed gastritis and 2 polyps. no evidence of IBD. during her hospitalization she has not had any significant diarrhea. She will continue with viberzi and has a follow up appointment scheduled with GI next well. Her xarelto was placed on hold following her colonoscopy due to polyp removal and can be resumed 10/10. Follow up pathology results as outpatient. Sepsis and acute metabolic encephalopathy. She initially met sepsis criteria with fever and tachycardia, no leukocytosis. Thought to be related to UTI, has recent history of Pseudomoas and ct with signs of cystitis. She was seen by ID who recommended to complete a course of cefepime which she completed during this hospitalization. flu, covid, RSV negative; CXR negative for pna. She was noted to have a few episodes where her O2 saturation dipped, primarily at night, repeat CXR showing atelectasis. Did not qualify for home oxygen. Recommend incentive spirometery and consider outpatient sleep study. bladder nodule and thickening noted on previous imaging as well, will need outpatient cystoscopy history of DM A1C of 6.5, diet controlled. POCs controlled with diabetic diet paroxysmal afib with rvr initially HR was uncontrolled, likely due to fever. she received a dose of IV cardizem and was continued on her baseline meds. Her HR has remained controlled. Continue outpatient follow up with cardiology as previously scheduled. 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 Discussed with he does not want her to go to rehab. He has a hospital bed being delivered today and is able to care for her at home. Time Attestation Discharge coordination time: Greater than 30 minutes Quality: Safe Use of Opioids Does Pt have an Active Cancer Diagnosis on the Problem List?: No Quality: Stroke Does the patient have a stroke diagnosis?: No Physical Exam Vital Signs: Vital Signs: Last Vital Signs Temp 96.7 F L 10/07/23 11:33 Pulse 96 10/07/23 11:33 Resp 20 10/07/23 11:33 BP 121/70 10/07/23 11:33 Pulse Ox 91 L 10/07/23 11:33 O2 Del Method Room Air 10/07/23 11:33 O2 Flow Rate 1 10/07/23 08:00 Oxygen Flow Rate 2 10/06/23 14:51 BMI result Body Mass Index 45.9 Const: General: cooperative, comfortable, no acute distress, alert and awake Nutritional Appearance: overweight Orientation/consciousness: oriented to person and oriented to place Resp: Effort & Inspection: normal respiratory effort, able to speak in complete sentences, no respiratory distress and no use of accessory muscles Cardio: Rate: regular rate GI: Inspection: No distended Palpation (GI): Soft to palpation and nontender Neuro: General: oriented to person, oriented to place, moves all extremities and CN's II-XI intact bilaterally Extrem: General: Yes no pedal edema DS: Data Data Completed and Pending Pending studies at discharge: Pending at discharge 10/05/23 15:22 Surgical [PTH] Routine Labs on day of discharge: Laboratory Results - last 24 hr 10/04/23 10/06/23 10/06/23 05:54 12:32 15:11 POC Glucose 113 125 H IgA 415 H 10/06/23 10/07/23 10/07/23 20:44 07:50 11:37 POC Glucose 148 H 98 210 H IgA Discharge Plan Discharge Anticipated Discharge Date/Time: 10/07/23 16:00 Patient Disposition: Home Health Service Discharge Diagnosis: Fever UTI diarrhea Referrals: Faheem Hanks [Outside] - 1 Week Adithya Gutierrez MD [Primary Care Provider] - 1 Week Discharge Medications: Continued levothyroxine 150 mcg tablet 150 mcg PO DAILY 90 Days Qty: 90 1RF metoprolol succinate 50 mg tablet extended release 24 hr 50 mg PO BEDTIME Viberzi 75 mg tablet 75 mg PO BID trazodone 150 mg tablet 225 mg PO BEDTIME divalproex 250 mg tablet,delayed release (DR/EC) 250 mg PO BEDTIME divalproex 500 mg tablet,delayed release (DR/EC) 500 mg PO BID Rx Instructions: 500 in the morning and 750 at night Held Xarelto 20 mg tablet 20 mg PO QPM Qty: 90 0RF Hold Instructions: Resume on 10/10/2023 Discharge Orders: Discharge Order (Routine); Ordered 10/07/23 Ordered By: Lora Garrison Activity on Discharge: As tolerated Stand Alone Forms: Patient Portal Discharge page Care Plan Goals: see below Health Concerns: Fever due to UTI diarrhea atrial fibrillation with uncontrolled heart rate - resolved Plan of Treatment: completed course of antibiotics during hospitalization diarrhea - continue home viberzi and keep follow-up appointment with GI as scheduled. biopsy results pending, can review at follow up appointment Elevated heart rate likely due to fever, now resolved. Keep outpatient follow- up appointment with cardiology as scheduled UTI - completed course of antibiotics during hospitalization bladder wall thickening noted on imaging - may be due to UTI. would discuss need for possible cystoscopy vs repeat imaging with PCP chest xray with no evidence of pneumonia, does show atelectasis, recommend to use incentive spirometer every few hours while awake until more active to decrease risk of developing pneumonia Consider outpatient sleep study to evaluate for underlying obstructive sleep apnea. Did not qualify for home oxygen Assessment: see discharge summary
[2023-10-07 12:51] VITALS: PULSE 101; PULSE 104; O2SAT 91; O2SAT 93
[2023-10-07 13:20] LABS: Zinc 48 mcg/dL (60-130)
[2023-10-07 15:53] VITALS: BP 146/87; PULSE 108; RESP 20; TEMP 37.1; O2SAT 93
== END 2023-10-07 15:22 | disposition home health service (06) | DRG 871 ==
LOC: HO.ED 19:20 → HO.EDOVER 09-30 02:22 → HO.IMC 10-01 14:41
PROVIDERS: Internal Medicine; Internal Medicine Gastroenterology; Nurse Practitioner Acute Care; Physician Assistant; Admitting Provider Internal Medicine; Emergency Provider Emergency Medicine; PCP Internal Medicine; Visit Provider Physician Assistant Medical
PROC: 0DB98ZX Excision of Duodenum, Via Natural or Artificial Opening Endoscopic, Diagnostic (ICD-10-PCS; principal; 2023-10-05 14:00)
DX: A41.9 Sepsis, unspecified organism (principal); G93.41 Metabolic encephalopathy; J98.11 Atelectasis; N30.00 Acute cystitis without hematuria; B96.81 Helicobacter pylori [H. pylori] as the cause of diseases classified elsewhere; D12.5 Benign neoplasm of sigmoid colon; K29.70 Gastritis, unspecified, without bleeding; K90.0 Celiac disease; K57.30 Diverticulosis of large intestine without perforation or abscess without bleeding; E11.9 Type 2 diabetes mellitus without complications; N32.89 Other specified disorders of bladder; I48.0 Paroxysmal atrial fibrillation; F31.9 Bipolar disorder, unspecified; I10 Essential (primary) hypertension; E03.9 Hypothyroidism, unspecified; Z20.822 Contact with and (suspected) exposure to COVID-19; Z79.01 Long term (current) use of anticoagulants; Z79.890 Hormone replacement therapy; Z79.899 Other long term (current) drug therapy
CPT/HCPCS: 0241U; 36415; 71045; 71046; 74177; 80048; 80053; 81001; 81479; 82397; 82784; 82947; 83036; 83520; 83605; 83690; 83735; 83880; 84630; 85025; 85027; 86140; 87040; 87086; 87493; 87507; 88305; 88307; 88342; 88346; 88350; 93005; 97162; 99285; J0692; J0696; J2060; J2250; J2704; Q9967

== ENCOUNTER 2023-09-30 02:19 | Outpatient (BNV) | payer MEDICARE, BC, SELFPAY | END 2023-10-01 20:03 | PROVIDERS: Admitting Provider Internal Medicine; Emergency Provider Emergency Medicine; PCP Internal Medicine; Visit Provider Internal Medicine Cardiovascular Disease | DX: I48.91 Unspecified atrial fibrillation (principal); R94.31 Abnormal electrocardiogram [ECG] [EKG] | CPT/HCPCS: 93010 ==

== ENCOUNTER → 2023-09-30 02:19 | Outpatient (BNV) | payer MEDICARE, BC, OTHER, SELFPAY | PROVIDERS: Admitting Provider Internal Medicine; Emergency Provider Emergency Medicine; PCP Family Medicine; Visit Provider Internal Medicine | DX: R53.1 Weakness (principal); R50.9 Fever, unspecified | CPT/HCPCS: 99222 ==

== ENCOUNTER → 2023-09-30 02:19 | Outpatient (BNV) | payer MEDICARE, BC, OTHER, SELFPAY | PROVIDERS: Admitting Provider Internal Medicine; Emergency Provider Emergency Medicine; PCP Family Medicine; Visit Provider Internal Medicine | DX: R50.9 Fever, unspecified (principal); I48.19 Other persistent atrial fibrillation; R19.7 Diarrhea, unspecified; N39.0 Urinary tract infection, site not specified | CPT/HCPCS: 99222; 99232; 99239; 99499 ==

== ENCOUNTER → 2023-09-30 02:19 | Outpatient (BNV) | payer MEDICARE, BC, OTHER, SELFPAY | PROVIDERS: Admitting Provider Internal Medicine; Emergency Provider Emergency Medicine; PCP Internal Medicine; Visit Provider Internal Medicine Gastroenterology | DX: A04.72 Enterocolitis due to Clostridium difficile, not specified as recurrent (principal); K58.0 Irritable bowel syndrome with diarrhea | CPT/HCPCS: 43239; 45380; 45385; 99222 ==

== ENCOUNTER 2023-10-08 11:29 | Inpatient (IN) | payer MEDICARE, BC, SELFPAY ==
[2023-10-08] VITALS (7 sets, daily range): BP systolic 98–131; BP diastolic 57–101; PULSE 58–120; RESP 14–18; TEMP 36–37.1; O2SAT 88–98; BMI 41.9; BMI 43.6
--- NOTE | ~2023-10-08 | XR_ITS ---
EXAMINATION: XR CHEST CLINICAL INFORMATION: Syncope. Hypoxia. COMPARISON: Previous chest x-ray most recent from yesterday TECHNIQUE: Frontal view of the chest was obtained. FINDINGS: The cardiac silhouette is enlarged and may be increased in size from yesterday's exam the lung volumes are low. There is increasing perihilar atelectasis or small. The right lung is clear. No pleural effusion or pneumothorax. Degenerative changes of the spine. XR/XR chest 1V IMPRESSION: Enlarged cardiac silhouette, question slightly increased from yesterday's exam. Low lung volumes. Left perihilar atelectasis or small infiltrate
--- NOTE | 2023-10-08 11:56 | ECG_ITS ---
Test Reason : SYNCOPE Blood Pressure : / mmHG Vent. Rate : 117 BPM Atrial Rate : 117 BPM P-R Int : 000 ms QRS Dur : 130 ms QT Int : 332 ms P-R-T Axes : 105 -46 147 degrees QTc Int : 463 ms Atrial fibrillation with rapid ventricular response Left axis deviation Non-specific intra-ventricular conduction block Possible Lateral infarct , age undetermined Abnormal ECG When compared with ECG of 01-OCT-2023 20:03, No significant changes seen Referred By: Generic ED Physician Electronically Signed By:VAIBHAV CHRIS
[2023-10-08 12:42] LABS: MANUAL DIFF FLAG NO
[2023-10-08 12:44] LABS: Basophils Percent Auto 0.5 % (0-2); Eosinophils Absolute Auto 0.1 X10*3/uL (0.0-0.4); Eosinophils Percent Auto 1.1 % (0-4); Hematocrit 42.9 % (37.0-47.0); Hemoglobin 13.8 g/dl (12.0-16.0); Imm Gran Abs Auto 0.06 X10*3/uL (0.00-0.03); Imm Gran Pct Auto 0.8 % (0.0-0.4); Lymphocytes Percent Auto 13.1 % (20-40); Mean Corpuscular HGB Conc 32.2 g/dl (31.0-35.0); Mean Corpuscular Hemoglobin 30.7 pg (27.0-33.0); Mean Corpuscular Volume 95.3 fL (80.0-98.0); Mean Platelet Volume 8.8 fL (9.4-12.3); Monocytes Absolute Auto 0.4 X10*3/uL (0.1-1.2); Neutrophils Absolute Auto 5.9 x10*3/uL (2.0-8.3); Neutrophils Percent Auto 79.5 % (45-73); Platelet Count 296 X10*3/uL (160-400); Red Cell Distribution Width 12.7 % (11.0-16.0); White Blood Count 7.5 X10*3/uL (4.8-10.8)
[2023-10-08 12:58] LABS: Alanine Aminotransferase 15 U/L (0-31); Albumin Level 3.5 g/dL (3.5-5.0); Alkaline Phosphatase 115 U/L (39-117); Anion Gap 20 (12-20); Aspartate Amino Transferase 35 U/L (5-31); Bilirubin Total 0.5 mg/dL (0.0-1.0); Blood Urea Nitrogen 11 mg/dL (9-16); Calcium 9.8 mg/dL (8.4-10.2); Carbon Dioxide 26 mmol/L (22-29); Chloride 101 mmol/L (96-108); Creatinine Clr Calc Pharmacy 79.1; Estimated Glomerular Filt Rate > 60; Glucose Random 234 mg/dL (60-115); Potassium 4.4 mmol/L (3.3-5.1); Sodium 143 mmol/L (135-145); Total Protein 8.4 g/dL (6.5-8.0)
[2023-10-08 13:04] LABS: B Type Natriuretic Peptide 349 pg/mL (<100)
[2023-10-08 13:12] LABS: Troponin-I High Sensitivity < 2.7 ng/L (<3.5-17.0)
[2023-10-08 13:38] LABS: Influenza A PCR NEGATIVE (Negative); Influenza B PCR NEGATIVE (Negative); Resp Syncy Virus RNA Qual PCR NEGATIVE (Negative); SARS COV2 PCR INHOUSE NEGATIVE (Negative)
[2023-10-08] MEDS: 0.9 % Sodium Chloride 1,000 ML 999 ML IV (15:01)
--- NOTE | 2023-10-08 15:14 | ED.SYNCOPE ---
HPI - Syncope General Chief Complaint: Syncope Stated Complaint: SYNCOPAL EPISODE Time Seen by Provider: 10/08/23 12:25 History of Present Illness HPI narrative: Patient is a 68-year-old female with a history of paroxysmal AFib, bipolar, C diff colonized ir, irritable bowel syndrome, question diabetes, question hypothyroid and today with having generalized malaise diarrhea patient presented with having a syncopal episode. Feeling lightheaded upon sitting on the toilet patient did not have any chest pain cannot recall the event she was just discharged from the hospital yesterday had multiple episodes of diarrhea again that was brown in color there was no blood involved. There is no fever no chills no abdominal pain. Patient had a colonoscopy and endoscopy done during no previous hospitalization. She baseline is on Xarelto and has just restarted her medication. Related Data Home Medications Medication Instructions Recorded Confirmed trazodone 150 mg tablet 225 mg PO BEDTIME 07/09/22 09/30/23 divalproex 250 mg tablet,delayed 250 mg PO BEDTIME 06/10/23 09/30/23 release divalproex 500 mg tablet,delayed 500 mg PO BID 06/10/23 09/30/23 release metoprolol succinate 50 mg 50 mg PO BEDTIME 06/29/23 09/30/23 tablet,extended release 24 hr eluxadoline 75 mg tablet (Viberzi) 75 mg PO BID 09/04/23 09/30/23 Previous Rx's Medication Instructions Recorded levothyroxine 150 mcg tablet 150 mcg PO DAILY for disorder of 06/10/23 thyroid gland 90 days #90 tabs rivaroxaban 20 mg tablet (Xarelto) 20 mg PO QPM #90 tabs 08/30/23 Allergies Allergy/AdvReac Type Severity Reaction Status Date / Time aspirin [ASA] Allergy Intermediate GI PAIN, Verified 10/08/23 11:55 upset stomach hazelnut Allergy Unknown Unknown Verified 10/08/23 11:55 shellfish derived Allergy Unknown Unknown Verified 10/08/23 11:55 gluten Allergy Unknown Verified 10/08/23 11:55 sesame seeds Allergy Unknown Unknown Uncoded 10/08/23 11:55 Review of Systems Review of Systems: Positive generalized malaise weakness Yes all other systems are reviewed and are negative PMFSH Past Medical History Attestation statement: The following information was validated with the patient. Medical History (Updated 10/08/23 @ 15:19 by Shila Payne MD) Hip pain, left Paroxysmal atrial fibrillation Morbid obesity due to excess calories Non-insulin dependent type 2 diabetes mellitus Pre-op evaluation Medication side effect Muscle stiffness Hospital discharge follow-up Weakness Leg edema SOB (shortness of breath) On anticoagulant therapy On beta carlos at home Bipolar 1 disorder Vertigo PTSD (post-traumatic stress disorder) History of cardioversion Arthritis Hypothyroidism History of wheezing Persistent atrial fibrillation Diabetes mellitus HTN (hypertension) LBBB (left bundle branch block) PAF (paroxysmal atrial fibrillation) Surgical History History of cardiac radiofrequency ablation History of eye surgery Hx of section Hx of colonoscopy Hx of cholecystectomy Hx of arthroscopy of right knee Family History Family History Father No problems noted. Mother No problems noted. Other Mental health disorder Substance use disorder Social History Social History Household Members: Spouse and Children Household Members Other:: daughter + Housing: House Do you presently have visiting nurse or other home services: No Alcohol intake: former Comment: patient fll asleep Patient Tobacco Use Status: Former Tobacco user Quit Date: 1989 e-Cigarette/Vaping Use: Never Used Second Hand Smoke Exposure: No Advance Directives: Yes Advance Directives on File: Yes Advance Directives Date on File: 06/29/23 service: No Current occupational status: employed Sexual orientation: Straight/Heterosexual Cognitive needs: No Hearing needs: No Vision needs: Yes Physical Exam Vital Signs: Vital Signs: Last Vital Signs Temp 97.9 F 10/08/23 12:21 Pulse 116 H 10/08/23 15:04 Resp 14 10/08/23 15:04 BP 98/59 L 10/08/23 15:04 Pulse Ox 94 10/08/23 15:04 O2 Del Method Nasal Cannula 10/08/23 15:04 O2 Flow Rate 2 10/08/23 15:04 BMI result Body Mass Index 41.9 Appearance: Alert. Oriented X3. No acute distress. Eyes: Pupils equal, round and reactive to light. ENT: Pharynx normal. Neck: Normal inspection. Neck supple. No lymph nodes noted. No crepitus CVS: Irregularly irregular Respiratory: No respiratory distress. Breath sounds normal. No Wheezing. No rales Abdomen: Soft and nontender. No rigidity. No distention. good BS x4 Skin: Skin warm and dry. Normal skin color. Normal skin turgor. Extremities: No lower extremity edema. Neurovascular intact to all extremities. No Lacerations. No Rash Neuro: Oriented X 3. No motor deficit. No sensory deficit. Moving all extermities. No slurred speech Medications Administered Discontinued Medications Generic Name Dose Route Start Last Admin Trade Name Freq PRN Reason Stop Dose Admin Sodium Chloride 1,000 mls @ 999 mls/hr 10/08/23 14:30 10/08/23 15:01 Ns IV 10/08/23 15:30 999 mls/hr .Q1H1M SELMA Administration Medical Decision Making Medical Decision Making [facility] Narrative: My interpretation of patient's EKG shows in atrial fibrillation pattern heart rate is 120. There is widened QRS which is old. Patient had syncopal episode. Has a history of being on blood thinners. Denies any head trauma. Given IV fluids here in the emergency department. Patient's hemoglobin is actually higher than baseline is 13. Troponin is negative. BNP is 300 there is no evidence for congestive heart failure today. COVID Wilder RSV were all negative. Patient unable to provide a urine. Given patient's recent discharge from the hospital multiple bouts of diarrhea generalized malaise weakness. Will admit for further evaluation IV hydration gently. Case discussed with family discussed with patient. Admit patient for additional hospitalization IV fluid. Question rehab unit. In stable condition. Differential Diagnosis Differential Diagnoses: The differential diagnosis associated with the presentation includes Dehydration, syncope, near syncope, ACS, arrhythmia Admission/Observation Consideration of admission/observation: Escalation of care including admission/observation considered Consult Healthcare Provider Management of the patient was discussed with: Hospitalist Lab Data [facility] Lab Attestation statement: I reviewed the patient's lab results. 10/08/23 12:37 10/08/23 12:37 Labs: Lab Results 10/08/23 10/08/23 Range/Units 12:21 12:37 WBC 7.5 (4.8-10.8) X10*3/uL RBC 4.50 D (4.20-5.50) X10*6/uL Hgb 13.8 D (12.0-16.0) g/dl Hct 42.9 D (37.0-47.0) % MCV 95.3 (80.0-98.0) fL MCH 30.7 (27.0-33.0) pg MCHC 32.2 (31.0-35.0) g/dl RDW 12.7 (11.0-16.0) % Plt Count 296 D (160-400) X10*3/uL MPV 8.8 L (9.4-12.3) fL Immature Gran % (Auto) 0.8 H (0.0-0.4) % Neut % (Auto) 79.5 H (45-73) % Lymph % (Auto) 13.1 L (20-40) % [place] % (Auto) 5.0 (2-11) % Eos % (Auto) 1.1 (0-4) % Baso % (Auto) 0.5 (0-2) % Lymph # (Auto) 1.0 L (1.2-4.9) X10*3/uL [place] # (Auto) 0.4 (0.1-1.2) X10*3/uL Eos # (Auto) 0.1 (0.0-0.4) X10*3/uL Baso # (Auto) 0.0 (0.0-0.2) X10*3/uL Abs Immat Gran (auto) 0.06 H (0.00-0.03) X10*3/uL Absolute Neuts (auto) 5.9 (2.0-8.3) x10*3/uL Absolute Nucleated RBC 0.000 (0.0-0.012) X10*3/uL Nucleated RBC % (auto) 0.0 (0.0-0.2) /100WBC Sodium 143 (135-145) mmol/L Potassium 4.4 (3.3-5.1) mmol/L Chloride 101 (96-108) mmol/L Carbon Dioxide 26 (22-29) mmol/L Anion Gap 20 (12-20) BUN 11 (9-16) mg/dL Creatinine 0.82 (0.5-1.4) mg/dL Estim Creat Clear Calc 79.1 Estimated GFR > 60 Random Glucose 234 H (60-115) mg/dL Calcium 9.8 D (8.4-10.2) mg/dL Total Bilirubin 0.5 (0.0-1.0) mg/dL AST 35 H (5-31) U/L ALT 15 (0-31) U/L Alkaline Phosphatase 115 (39-117) U/L Troponin I High Sens < 2.7 (<3.5-17.0) ng/L B-Natriuretic Peptide 349 H (<100) pg/mL Total Protein 8.4 H (6.5-8.0) g/dL Albumin 3.5 (3.5-5.0) g/dL Influenza Type A (PCR) NEGATIVE (Negative) Influenza Type B (PCR) NEGATIVE (Negative) RSV RNA Qual (PCR) NEGATIVE (Negative) SARS-CoV-2 RNA (RT-PCR) NEGATIVE (Negative) Independent Interpretation I performed an independent interpretation of an: EKG (Atrial fibrillation heart rate is 120 widened QRS) Independent Historian Clinical information obtained from an independent historian. History obtained from or confirmed by: Spouse External Record Review External record reviewed: Inpatient record Chronic Conditions Patient?s care impacted by: Diabetes Discharge Plan Discharge Clinical Impression: Syncope Patient Disposition: Admitted As Inpatient
--- NOTE | 2023-10-08 16:11 | PHA.MEDREC ---
Pharmacy Consult ? Medication Reconciliation Pharmacy has completed the medication reconciliation. spoke with patients , no changes have been made and jama is still on hold. He gave her depakote, metoprolol, and viberzi last night.
--- NOTE | 2023-10-08 16:40 | MHC.EDTECH ---
This pct assumed care of pt at 1500 ,vitals taken ,purewick was place ,per request of NELLY Zapien ,Patient was reposition and boosted up in bed ,resp panal collected and sent to lab .
--- NOTE | 2023-10-08 16:49 | MHC.EDTECH ---
Dr. Nikkie león/b @ 15:[address] Payne
--- NOTE | 2023-10-08 16:57 | P.HPHOSP_ITS ---
History of Present Illness Date of Service: 10/08/23 Chief Complaint: weakness 68-year-old woman presented to the ER with presyncope. According to her , she was sitting on the toileting and seemed like she started snoring and seemed very weak. She was just discharged from [facility] on 10/07/2023 and at that time was treated for C diff colonization. She had an EGD and colonoscopy which showed gastritis and 2 polyps but no evidence of IBD. During the hospitalization she had not had any significant diarrhea, her viabrezy was continued and her Xarelto has been on hold due to restart on 10/10/2023. She was also treated for sepsis and acute metabolic encephalopathy secondary to UTI, completed a course of cefepime, flu, COVID, RSV and chest x- ray were negative at that time. Asthma reports that it seems like she is declining over the last year. In the ED, Labs drawn were all within acceptable limits, UA pending, chest x-ray negative for consolidation or effusion, no fever or leukocytosis noted, she was noted to be hypoxic with oxygen saturation of 88% on room air, she was placed on 2 L and did come up to 98%. She received a L of IV fluid in the ER. She will be admitted for further management and treatment of presyncope and hypoxia. Review of Systems 2 Review of Systems: Yes Unobtainable due to mental status [facility] Medical History (Updated 10/08/23 @ 17:04 by Gloria Avila NP) Paroxysmal atrial fibrillation Morbid obesity due to excess calories Non-insulin dependent type 2 diabetes mellitus Weakness Leg edema Bipolar 1 disorder Vertigo PTSD (post-traumatic stress disorder) History of cardioversion Arthritis Hypothyroidism History of wheezing Persistent atrial fibrillation Diabetes mellitus HTN (hypertension) LBBB (left bundle branch block) PAF (paroxysmal atrial fibrillation) Family History Father No problems noted. Mother No problems noted. Other Mental health disorder Substance use disorder Surgical History History of cardiac radiofrequency ablation History of eye surgery Hx of section Hx of colonoscopy Hx of cholecystectomy Hx of arthroscopy of right knee Social History Household Members: Spouse and Children Household Members Other:: daughter + Housing: House Do you presently have visiting nurse or other home services: Yes Alcohol intake: former Comment: patient fll asleep Patient Tobacco Use Status: Former Tobacco user Quit Date: 1989 Smoked in Last 30 Days: No e-Cigarette/Vaping Use: Never Used Second Hand Smoke Exposure: No Use of substances other than those prescribed or required for medical reasons: No Currently Displaying Signs/Symptoms of Drug Intoxication Withdrawal: No Have you been hit, kicked, punched, or otherwise hurt by someone within the past year? If so, by whom?: No Do you feel safe in your current relationship?: Yes Is there a partner from a previous relationship who is making you feel unsafe now?: No Are you made to feel afraid or neglected: No Advance Directives: Yes Advance Directives on File: Yes Advance Directives Date on File: 06/29/23 Do you have thoughts of harming others: None Do you have a plan to hurt others: No Plan Recently lost weight without trying: No Nutrition Risks: No Nutritional Risk Patient : No : No Poor oral hygiene: No service: No Current occupational status: employed Sexual orientation: Straight/Heterosexual Cognitive needs: No Hearing needs: No Vision needs: Yes Meds Allergies Allergy/AdvReac Type Severity Reaction Status Date / Time aspirin [ASA] Allergy Intermediate GI PAIN, Verified 10/08/23 11:55 upset stomach hazelnut Allergy Unknown Unknown Verified 10/08/23 11:55 shellfish derived Allergy Unknown Unknown Verified 10/08/23 11:55 gluten Allergy Unknown Verified 10/08/23 11:55 sesame seeds Allergy Unknown Unknown Uncoded 10/08/23 11:55 Active Medications: Current Medications Acetaminophen (Acetaminophen 325 Mg Tablet) 650 mg PO Q6H PRN PRN Reason: Pain, Mild (Pain Scale 1-3) Divalproex Sodium (Divalproex Sodium 250 Mg Tablet.) 250 mg PO BEDTIME SELMA Divalproex Sodium (Divalproex Sodium 500 Mg Tablet.) 500 mg PO BID SELMA Dextrose/Sodium Chloride (D5ns) 1,000 mls @ 100 mls/hr IVCONT .Q10H SELMA Levothyroxine Sodium (Levothyroxine Sodium 150 Mcg Tablet) 150 mcg PO DAILY@0600 [facility] Metoprolol Succinate (Metoprolol Succinate Er 50 Mg Tab.Er.24h) 50 mg PO BEDTIME SELMA; Protocol Non-Formulary Medication (Eluxadoline [Viberzi]) 75 mg PO BID SELMA Ondansetron HCl (Ondansetron Hcl 4 Mg/2 Ml Vial) 4 mg IVPUSH Q8H PRN PRN Reason: Nausea and Vomiting Rivaroxaban (Rivaroxaban 20 Mg Tablet) 20 mg PO DAILY@1700 SELMA Sodium Chloride (0.9 % Sodium Chloride Flush 3 Ml Syringe) 3 ml IVFLUSH QSHIFT SELMA Trazodone HCl (Trazodone Hcl 25 Mg Halftab) 225 mg PO BEDTIME [facility] Home Medications Medication Instructions Recorded Confirmed Last Taken Type trazodone 150 mg tablet 225 mg PO BEDTIME 07/09/22 10/08/23 06/28/23 History divalproex 250 mg tablet,delayed 250 mg PO BEDTIME 06/10/23 10/08/23 10/07/23 History release divalproex 500 mg tablet,delayed 500 mg PO BID 06/10/23 10/08/23 06/29/23 History release metoprolol succinate 50 mg 50 mg PO BEDTIME 06/29/23 10/08/23 10/07/23 History tablet,extended release 24 hr eluxadoline 75 mg tablet (Viberzi) 75 mg PO BID 09/04/23 10/08/23 10/07/23 History Physical Exam 2 Vital Signs and Narrative: Vital Signs: Last Vital Signs Temp 98.1 F 10/08/23 16:32 Pulse 93 10/08/23 16:32 Resp 15 10/08/23 16:32 BP 110/71 10/08/23 16:32 Pulse Ox 98 10/08/23 16:32 O2 Del Method Nasal Cannula 10/08/23 16:32 O2 Flow Rate 2 10/08/23 16:32 BMI result Body Mass Index 41.9 Appearing in no acute distress head is normocephalic atraumatic eyes pupils are PERRLA sclera is anicteric mouth throat mucous membranes are intact and moist neck is supple no lymphadenopathy, no JVD noted lung sounds are clear to auscultation heart regular rate rhythm, clear S1, S2 positive bowel sounds, abdomen is soft, nontender neuro patient is alert, confused Results Labs 10/09/23 10:27 10/09/23 10:27 Labs: Laboratory Results - last 24 hr 10/08/23 10/08/23 12:21 12:37 MCV 95.3 MCH 30.7 MCHC 32.2 RDW 12.7 Plt Count 296 D MPV 8.8 L Immature Gran % (Auto) 0.8 H Neut % (Auto) 79.5 H Lymph % (Auto) 13.1 L [place] % (Auto) 5.0 Eos % (Auto) 1.1 Baso % (Auto) 0.5 Lymph # (Auto) 1.0 L [place] # (Auto) 0.4 Eos # (Auto) 0.1 Baso # (Auto) 0.0 Abs Immat Gran (auto) 0.06 H Absolute Neuts (auto) 5.9 Absolute Nucleated RBC 0.000 Nucleated RBC % (auto) 0.0 Anion Gap 20 Estim Creat Clear Calc 79.1 Estimated GFR > 60 Random Glucose 234 H Calcium 9.8 D Total Bilirubin 0.5 AST 35 H ALT 15 Alkaline Phosphatase 115 B-Natriuretic Peptide 349 H Total Protein 8.4 H Albumin 3.5 Influenza Type A (PCR) NEGATIVE Influenza Type B (PCR) NEGATIVE RSV RNA Qual (PCR) NEGATIVE SARS-CoV-2 RNA (RT-PCR) NEGATIVE Imaging Radiologist's Impressions: Impressions Chest X-Ray 10/08/23 12:46 IMPRESSION: Enlarged cardiac silhouette, question slightly increased from yesterday's exam. Low lung volumes. Left perihilar atelectasis or small infiltrate Assessment and Plan (1) Syncope: Status: Acute Plan 68 year old women PMH HTN, paroxysmal afib, bipolar, cdif colonizer, IBS, DM, hypothyroid, presented with presyncope and weakness. Recent discharge 10/07/2023 treated for C diff colonization in sepsis secondary to UTI. Patient returned after a presyncopal episode while sitting on the toilet and weakness. Presyncope. Unsure there was actual loss of consciousness Will monitor on telemetry to rule out arrhythmia Monitor electrolytes Echocardiogram to assess cardiac function if normal consider neurology consultation Stable blood pressure IV fluids Check orthostatic blood pressures if patient able to sit/stand Generalized malaise Decline over the last year, contributes this to diarrhea episodes Labs within normal limits Physical therapy consultation IV fluids Check blood cultures, UA Supportive care Diarrhea History of C diff colonization Had recent colonoscopy and endoscopy with no significant finding Patient's spouse would like to talk with rockboard lather as to next steps, will consult GI Monitor for any electrolyte abnormalities Diabetes mellitus 2 A1C of 6.5, diet controlled diabetic diet follow POCs Paroxysmal afib with rvr HR controlled continue toprol hold xarelto in light of recent colonoscopy, restart 10/10/23 Bipolar disorder depakote HTN toprol Hypothyroid synthroid DVT prophylaxis - xarelto on hold in light of recent colonoscopy full code attending - dr. Lundy Patient will likely need 48 hours for treatment of presyncope requiring telemetry monitoring, echocardiogram to assess for heart function to rule out arrhythmia, close monitoring of hypoxia requiring oxygen therapy and close lab monitoring due to diarrhea, monitoring for electrolyte abnormalities. Quality Stroke Does the patient have a stroke diagnosis?: No VTE Prior VTE?: No VTE Risk Level:: Medical - moderate - high VTE Device Contraindication: Treatment Not Indicated VTE Drug Contraindication: N/A - Med Ordered
[2023-10-08] MEDS: Dextrose 5 % and 0.9 % NaCl 1,000 ML 100 ML IVCONT (18:00)
--- NOTE | 2023-10-08 19:34 | PC.NURSE ---
Addendum entered by Michelle Conley 10/08/23 19:36: pt belongings and call mena not in place as well. placed in reach. tv turned on for pt. Original Note: assumed care of pt. straight cath not done by previous RN. upon assessing pt; pt soiled in urine not changed. dinner not placed in pt reach. this RN assisted pt to eat dinner; ate approx 50% + 2 juices. pt in afib hr ranging 90-98 bpm. resp even and unlabored. pt denies pain. will obtain bladder scan to determine need for straight cath at this time.
--- NOTE | 2023-10-08 20:30 | PC.NURSE ---
bladder scan showed 11 ML urine; not enough for straight cath at this time. pt changed and cleaned. purewick replaced. o2 94% on RA. pt does not use oxygen at home. at bedside now. warm blankets given. call mena within reach.
[2023-10-08] MEDS: traZODone HCL 50 MG TABLET 225 MG PO (21:29)
[2023-10-08] MEDS: Divalproex Sodium 250 MG TABLET.DR PO (21:30)
[2023-10-08] MEDS: Metoprolol Succinate ER 50 MG TAB.ER.24H PO (21:30)
[2023-10-08] MEDS: Divalproex Sodium 500 MG TABLET.DR PO (21:30)
--- NOTE | 2023-10-08 21:35 | PC.NURSE ---
trazodone not available in pyxis. pharmacy called. they changed order to reflect availability per pyxis. medication pulled administered per mar override with unscheduled administration as new order did not reflect dose for tonight. pt medicated per mar with bedtime meds. ivf infusing. call mena within reach.
--- NOTE | 2023-10-08 23:37 | PC.NURSE ---
Patient admitted to S3 from ED for presyncope and hypoxia just prior to 23:00 tonight. Tele orders in place, monitor showing afib 90's (hx of afib, xarelto on hold until 10/10/23 per chart review). Per chart review, pt was recently here with c.diff/sepsis/acute metabolic encephalopathy and discharged yesterday 10/07. On assessment pt is A&ox4, drowsy but appropriately arousable to voice and answering questions appropriately. Arrived on 2L nc with spo2 97% on admission vitals. VSS. Pt denies chest pain and sob. Breathing is even and unlabored without distress. Diabetic diet. IV fluids infusing as ordered on arrival to unit. POC 211 on arrival. Purewick in place. Pt denies pain and offers no complaints. High falls safety measures in place. See admission assessment for full details. Handoff report given to oncoming RN at 23:15.
[2023-10-09 03:23] VITALS: BP 111/71; PULSE 91; RESP 18; TEMP 36.4; O2SAT 94
[2023-10-09] MEDS: Dextrose 5 % and 0.9 % NaCl 1,000 ML 100 ML IVCONT ×2 (04:54→15:26)
--- NOTE | 2023-10-09 06:13 | PC.NURSE ---
Patient with uncollected urine specimen. Patient is incontinent, mostly sleeping. Bladder scanned approx 0500 for 35mL, st cath delayed due to small urine amount in bladder.
[2023-10-09 06:17] LABS: Glucose, Whole Blood 211 mg/dL (60-115)
[2023-10-09] MEDS: Levothyroxine Sodium 150 MCG TABLET PO (06:28)
[2023-10-09 07:40] LABS: Glucose, Whole Blood 146 mg/dL (60-115)
[2023-10-09 07:57] VITALS: BP 120/74; PULSE 90; RESP 18; TEMP 36; O2SAT 98
[2023-10-09 08:30] LABS: Adenovirus PCR Not Detected (Not Detect.); Bordetella parapertussis PCR Not Detected (Not Detect.); Bordetella pertussis PCR Not Detected (Not Detect.); Chlamydia pneumoniae PCR Not Detected (Not Detect.); Coronavirus 229E PCR Not Detected (Not Detect.); Coronavirus HKU1 PCR Not Detected (Not Detect.); Coronavirus NL63 PCR Not Detected (Not Detect.); Coronavirus OC43 PCR Not Detected (Not Detect.); Human metapneumovirus PCR Not Detected (Not Detect.); Influenza A PCR Not Detected (Not Detect.); Influenza B PCR Not Detected (Not Detect.); Mycoplasma pneumoniae PCR Not Detected (Not Detect.); Parainfluenza 1 PCR Not Detected (Not Detect.); Parainfluenza 2 PCR Not Detected (Not Detect.); Parainfluenza 3 PCR Not Detected (Not Detect.); Parainfluenza 4 PCR Not Detected (Not Detect.); RSV PCR Not Detected (Not Detect.); Rhino/Enterovirus PCR Not Detected (Not Detect.)
[2023-10-09 08:57] LABS: SARS-CoV-2 PCR Not Detected (Not Detect.)
[2023-10-09] MEDS: Divalproex Sodium 500 MG TABLET.DR PO ×2 (09:21→21:26)
[2023-10-09 10:42] LABS: VBG Base Excess 5.2 mmol/L; VBG HCO3 27 mmol/L (22-26); VBG pCO2 34 mmHg; VBG pH 7.52 (7.32-7.43); VBG pO2 89 mmHg
[2023-10-09 10:42] LABS: Hematocrit 31.3 % (37.0-47.0); Mean Corpuscular HGB Conc 31.9 g/dl (31.0-35.0); Mean Corpuscular Hemoglobin 30.5 pg (27.0-33.0); Mean Corpuscular Volume 95.4 fL (80.0-98.0); Mean Platelet Volume 8.9 fL (9.4-12.3); Platelet Count 207 X10*3/uL (160-400); Red Blood Count 3.28 X10*6/uL (4.20-5.50); Red Cell Distribution Width 12.9 % (11.0-16.0); White Blood Count 4.7 X10*3/uL (4.8-10.8)
[2023-10-09 10:42] LABS: Venous Blood Gas Refer to POC result
[2023-10-09 10:55] LABS: Alanine Aminotransferase 9 U/L (0-31); Albumin Level 2.6 g/dL (3.5-5.0); Alkaline Phosphatase 75 U/L (39-117); Anion Gap 13 (12-20); Aspartate Amino Transferase 23 U/L (5-31); Bilirubin Direct 0.1 mg/dL (0.0-0.5); Bilirubin Total 0.3 mg/dL (0.0-1.0); Blood Urea Nitrogen 9 mg/dL (9-16); Calcium 8.3 mg/dL (8.4-10.2); Carbon Dioxide 27 mmol/L (22-29); Chloride 105 mmol/L (96-108); Creatinine Clr Calc Pharmacy 100.6; Estimated Glomerular Filt Rate > 60; Glucose Random 220 mg/dL (60-115); Magnesium 1.7 mg/dL (1.6-2.6); Potassium 3.9 mmol/L (3.3-5.1); Sodium 141 mmol/L (135-145); Total Protein 5.8 g/dL (6.5-8.0)
[2023-10-09 11:02] LABS: B Type Natriuretic Peptide 161 pg/mL (<100)
[2023-10-09 11:19] VITALS: BP 130/90; PULSE 97; RESP 18; TEMP 36.2; O2SAT 92
[2023-10-09 11:42] LABS: Glucose, Whole Blood 167 mg/dL (60-115)
--- NOTE | 2023-10-09 12:25 | HO.PM.IMPN ---
Subjective Subjective Date of Service: 10/09/23 Review of Systems Follow up weakness, presyncope no pain, nausea or vomiting Physical Exam Vital Signs: Vital Signs: Last Vital Signs Temp 97.2 F 10/09/23 11:19 Pulse 97 10/09/23 11:19 Resp 18 10/09/23 11:19 BP 130/90 H 10/09/23 11:19 Pulse Ox 92 10/09/23 11:19 O2 Del Method Room Air 10/09/23 11:19 O2 Flow Rate 2 10/09/23 07:57 BMI result Body Mass Index 43.6 Appearing in no acute distress lung sounds are clear to auscultation heart regular rate rhythm, clear S1, S2 positive bowel sounds, abdomen is soft, nontender neuro patient is alert x3, no focal deficits Objective Data Active Medications Acetaminophen (Acetaminophen 325 Mg Tablet) 650 mg PO Q6H PRN PRN Reason: Pain, Mild (Pain Scale 1-3) Dextrose (Dextrose 50 % 25 Gm/50 Ml Syringe) 25 gm IVPUSH Q15M PRN; Protocol PRN Reason: per Hypoglycemia Standing Ord. Divalproex Sodium (Divalproex Sodium 250 Mg Tablet.) 250 mg PO BEDTIME [facility] Last Admin: 10/08/23 21:30 Dose: 250 mg Documented By: LOVE Divalproex Sodium (Divalproex Sodium 500 Mg Tablet.) 500 mg PO BID [facility] Last Admin: 10/09/23 09:21 Dose: 500 mg Documented By: ELYSSA Glucose (Glucose Gel 15 Gm Gel..Gram.) 15 gm PO Q15M PRN; Protocol PRN Reason: per Hypoglycemia Standing Ord. Dextrose/Sodium Chloride (D5ns) 1,000 mls @ 100 mls/hr IVCONT .Q10H [facility] Last Admin: 10/09/23 04:54 Dose: 100 mls/hr Documented By: SERENA Insulin Human Lispro (Insulin Lispro 100 Unit/Ml 3 Ml Vial) 0 unit SUBCUT QIDACHS [facility]; Protocol Last Admin: 10/09/23 11:46 Dose: Not Given Documented By: ELYSSA Non-Admin Reason: Patient Refused Levothyroxine Sodium (Levothyroxine Sodium 150 Mcg Tablet) 150 mcg PO DAILY@0600 [facility] Last Admin: 10/09/23 06:28 Dose: 150 mcg Documented By: SERENA Metoprolol Succinate (Metoprolol Succinate Er 50 Mg Tab.Er.24h) 50 mg PO BEDTIME [facility]; Protocol Last Admin: 10/08/23 21:30 Dose: 50 mg Documented By: LOVE Non-Formulary Medication (Eluxadoline [Viberzi]) 75 mg PO BID [facility] Ondansetron HCl (Ondansetron Hcl 4 Mg/2 Ml Vial) 4 mg IVPUSH Q8H PRN PRN Reason: Nausea and Vomiting Rivaroxaban (Rivaroxaban 20 Mg Tablet) 20 mg PO DAILY@1700 [facility] Sodium Chloride (0.9 % Sodium Chloride Flush 3 Ml Syringe) 3 ml IVFLUSH QSHIFT [facility] Last Admin: 10/09/23 09:23 Dose: Not Given Documented By: ELYSSA Non-Admin Reason: IV Running Trazodone HCl (Trazodone Hcl 50 Mg Tablet) 225 mg PO BEDTIME [facility] Last Admin: 10/08/23 21:29 Dose: 225 mg Documented By: LOVE Labs 10/09/23 10:27 10/09/23 10:27 Labs: Laboratory Results - last 24 hr 10/08/23 10/08/23 10/08/23 12:21 12:37 16:39 MCV 95.3 MCH 30.7 MCHC 32.2 RDW 12.7 Plt Count 296 D MPV 8.8 L Immature Gran % (Auto) 0.8 H Neut % (Auto) 79.5 H Lymph % (Auto) 13.1 L [place] % (Auto) 5.0 Eos % (Auto) 1.1 Baso % (Auto) 0.5 Lymph # (Auto) 1.0 L [place] # (Auto) 0.4 Eos # (Auto) 0.1 Baso # (Auto) 0.0 Abs Immat Gran (auto) 0.06 H Absolute Neuts (auto) 5.9 Absolute Nucleated RBC 0.000 Nucleated RBC % (auto) 0.0 VBG pH VBG pCO2 VBG pO2 VBG HCO3 VBG O2 Saturation VBG Base Excess Anion Gap 20 Estim Creat Clear Calc 79.1 Estimated GFR > 60 POC Glucose Random Glucose 234 H Calcium 9.8 D Magnesium Total Bilirubin 0.5 Direct Bilirubin AST 35 H ALT 15 Alkaline Phosphatase 115 B-Natriuretic Peptide 349 H Total Protein 8.4 H Albumin 3.5 Respiratory Panel [place] See Note Adenovirus (Rapid PCR) Not Detected B.pert (TEM-PCR) Not Detected B.parapertussis DNA PCR Not Detected C. pneumoniae DNA (PCR) Not Detected Coronavirus OC43 (PCR) Not Detected Coronavirus HKU1 (PCR) Not Detected Coronavirus 229E (PCR) Not Detected Coronavirus NL63 (PCR) Not Detected Human Metapneumovir PCR Not Detected Influenza A (RT-PCR) Not Detected Influenza Type A (PCR) NEGATIVE Influenza B (RT-PCR) Not Detected Influenza Type B (PCR) NEGATIVE M. pneumoniae (PCR) Not Detected Parainfluenza 1 (PCR) Not Detected Parainfluenza 2 (PCR) Not Detected Parainfluenza 3 (PCR) Not Detected Parainfluenza 4 (PCR) Not Detected RSV (PCR) Not Detected RSV RNA Qual (PCR) NEGATIVE Entero/Rhino (PCR) Not Detected SARS-CoV-2 RNA (RT-PCR) NEGATIVE Not Detected 10/08/23 10/09/23 10/09/23 23:06 07:35 10:27 MCV 95.4 MCH 30.5 MCHC 31.9 RDW 12.9 Plt Count 207 D MPV 8.9 L Immature Gran % (Auto) Neut % (Auto) Lymph % (Auto) [place] % (Auto) Eos % (Auto) Baso % (Auto) Lymph # (Auto) [place] # (Auto) Eos # (Auto) Baso # (Auto) Abs Immat Gran (auto) Absolute Neuts (auto) Absolute Nucleated RBC 0.000 Nucleated RBC % (auto) 0.0 VBG pH VBG pCO2 VBG pO2 VBG HCO3 VBG O2 Saturation VBG Base Excess Anion Gap 13 Estim Creat Clear Calc 100.6 Estimated GFR > 60 POC Glucose 211 H 146 H Random Glucose 220 H Calcium 8.3 L D Magnesium 1.7 Total Bilirubin 0.3 Direct Bilirubin 0.1 AST 23 ALT 9 Alkaline Phosphatase 75 B-Natriuretic Peptide 161 H Total Protein 5.8 L Albumin 2.6 L Respiratory Panel [place] Adenovirus (Rapid PCR) B.pert (TEM-PCR) B.parapertussis DNA PCR C. pneumoniae DNA (PCR) Coronavirus OC43 (PCR) Coronavirus HKU1 (PCR) Coronavirus 229E (PCR) Coronavirus NL63 (PCR) Human Metapneumovir PCR Influenza A (RT-PCR) Influenza Type A (PCR) Influenza B (RT-PCR) Influenza Type B (PCR) M. pneumoniae (PCR) Parainfluenza 1 (PCR) Parainfluenza 2 (PCR) Parainfluenza 3 (PCR) Parainfluenza 4 (PCR) RSV (PCR) RSV RNA Qual (PCR) Entero/Rhino (PCR) SARS-CoV-2 RNA (RT-PCR) 10/09/23 10/09/23 10:37 11:32 MCV MCH MCHC RDW Plt Count MPV Immature Gran % (Auto) Neut % (Auto) Lymph % (Auto) [place] % (Auto) Eos % (Auto) Baso % (Auto) Lymph # (Auto) [place] # (Auto) Eos # (Auto) Baso # (Auto) Abs Immat Gran (auto) Absolute Neuts (auto) Absolute Nucleated RBC Nucleated RBC % (auto) VBG pH 7.52 H VBG pCO2 34 VBG pO2 89 VBG HCO3 27 H VBG O2 Saturation 98.0 VBG Base Excess 5.2 Anion Gap Estim Creat Clear Calc Estimated GFR POC Glucose 167 H Random Glucose Calcium Magnesium Total Bilirubin Direct Bilirubin AST ALT Alkaline Phosphatase B-Natriuretic Peptide Total Protein Albumin Respiratory Panel [place] Adenovirus (Rapid PCR) B.pert (TEM-PCR) B.parapertussis DNA PCR C. pneumoniae DNA (PCR) Coronavirus OC43 (PCR) Coronavirus HKU1 (PCR) Coronavirus 229E (PCR) Coronavirus NL63 (PCR) Human Metapneumovir PCR Influenza A (RT-PCR) Influenza Type A (PCR) Influenza B (RT-PCR) Influenza Type B (PCR) M. pneumoniae (PCR) Parainfluenza 1 (PCR) Parainfluenza 2 (PCR) Parainfluenza 3 (PCR) Parainfluenza 4 (PCR) RSV (PCR) RSV RNA Qual (PCR) Entero/Rhino (PCR) SARS-CoV-2 RNA (RT-PCR) Assessment and Plan (1) Fever: Status: Acute Assessment and Plan: 68 year old women PMH HTN, paroxysmal afib, bipolar, cdif colonizer, IBS, DM, hypothyroid, presented with presyncope and weakness. Recent discharge 10/07/2023 treated for C diff colonization in sepsis secondary to UTI. Patient returned after a presyncopal episode while sitting on the toilet and weakness. Presyncope. Unsure there was actual loss of consciousness Will monitor on telemetry to rule out arrhythmia Monitor electrolytes Echocardiogram to assess cardiac function if normal consider neurology consultation Stable blood pressure IV fluids Check orthostatic blood pressures if patient able to sit/stand Generalized malaise Decline over the last year, contributes this to diarrhea episodes Labs within normal limits Physical therapy consultation IV fluids Check blood cultures, UA Supportive care Diarrhea History of C diff colonization Had recent colonoscopy and endoscopy with no significant finding Patient's spouse would like to talk with stapler hand as to next steps, will consult GI Monitor for any electrolyte abnormalities Diabetes mellitus 2 A1C of 6.5, diet controlled diabetic diet follow POCs Paroxysmal afib with rvr HR controlled continue toprol hold xarelto in light of recent colonoscopy, restart 10/10/23 Bipolar disorder depakote HTN toprol Hypothyroid synthroid DVT prophylaxis - xarelto on hold in light of recent colonoscopy full code attending - dr. Lundy Patient will likely need 48 hours for treatment of presyncope requiring telemetry monitoring, echocardiogram to assess for heart function to rule out arrhythmia, close monitoring of hypoxia requiring oxygen therapy and close lab monitoring due to diarrhea, monitoring for electrolyte abnormalities. Quality Stroke Does the patient have a stroke diagnosis?: No VTE Prior VTE?: No VTE Risk Level:: Medical - moderate - high VTE Device Contraindication: Treatment Not Indicated VTE Drug Contraindication: N/A - Med Ordered
[2023-10-09] MEDS: Acetaminophen 325 MG TABLET 650 MG PO (14:40)
--- NOTE | 2023-10-09 14:45 | MHC.CM.PN ---
Addendum entered by Mary Velásquez 10/09/23 15:56: CM MET WITH PT AND DAUGHTER AT BEDSIDE PT NOW AGREEABLE TO STR DAUGHTER WOULD LIKE HER TO BE IN A SNF NEAR HER NEAR [facility] SHE ASKED FOR A REFERRAL TO [facility] IN [place], NOT FOUND A REFERRAL WAS MADE TO [facility] TO RUN BENEFITS, DAUGHTER REPORTS LAST TIME THEY HAD TO PAY FOR HER STR SHE WILL HAVE A PT EVAL TOMORROW Original Note: PT REPORTS SHE LIVES AT HOME WITH HER AND REQUIRES ASSISTANCE WITH CARE SHE REPORTS SHE IS ACTIVE WITH [facility] FOR HOME PT AND [facility] FOR [facility] [employer] [facility] SHE SAYS SHE HAS A HCP NAMING HER DAUGHTER AND HER HER AGENTS, COPY REQUESTED PCP: CARMEN LUCAS IMM DELIVERED DCP: HOME, RESUME SERVICES PT WILL NEED BLS TRANSPORT, SHE IS NON-AMBULATORY
[2023-10-09 15:46] VITALS: BP 134/74; PULSE 107; RESP 18; TEMP 36.2; O2SAT 93
[2023-10-09 16:25] LABS: Glucose, Whole Blood 176 mg/dL (60-115)
[2023-10-09 19:11] VITALS: BP 138/76; PULSE 112; RESP 17; TEMP 36; O2SAT 93
[2023-10-09 20:19] LABS: Glucose, Whole Blood 179 mg/dL (60-115)
[2023-10-09] MEDS: Metoprolol Succinate ER 50 MG TAB.ER.24H PO (21:26)
[2023-10-09] MEDS: Divalproex Sodium 250 MG TABLET.DR PO (21:26)
[2023-10-09] MEDS: traZODone HCL 50 MG TABLET 225 MG PO (21:26)
[2023-10-09 23:33] VITALS: BP 137/74; PULSE 107; RESP 16; TEMP 36; O2SAT 93
[2023-10-10] VITALS (7 sets, daily range): BP systolic 125–137; BP diastolic 62–82; PULSE 90–117; RESP 16–20; TEMP 36–37.3; O2SAT 91–95
[2023-10-10] MEDS: Dextrose 5 % and 0.9 % NaCl 1,000 ML 100 ML IVCONT (01:47)
--- NOTE | 2023-10-10 07:00 | CA_ITS ---
Transthoracic Echocardiogram Patient (Last, First, Middle): Bianca Kwok, Gender: Female Date of : 1955 Age: 68 Procedure Date: 10/10/2023 Procedure Type: Transthoracic Echocardiogram Location: S3E Height: 160.02 cm Weight: 111.59 kg BSA: 2.11 m2 Heart Rate: bpm BP: 137 / 81 mmHg Event Specialist: ELOINA Referring MD: Gloria Avila NP Symptoms: pre-syncope Study Quality: Fair, contrast Conclusions: - Normal left ventricular cavity size. There is moderately increased left ventricular wall thickness. The left ventricular systolic function is low normal. The visually estimated ejection fraction is between 50-55%. - Elevated filling pressures. - Normal right ventricular cavity size. There is mildly decreased right ventricular systolic function. Findings Procedure Information Contrast agent, definity, is being given per protocol without apparent complications. Left Ventricle Normal left ventricular cavity size. There is moderately increased left ventricular wall thickness. The left ventricular systolic function is low normal. The visually estimated ejection fraction is between 50-55%. Regional wall motion abnormalities can not be excluded due to suboptimal endocardial definition. Abnormal diastolic function is noted. Spectral Doppler is indicative of an impaired relaxation filling pattern. Elevated filling pressures. Right Ventricle Normal right ventricular cavity size. There is mildly decreased right ventricular systolic function. Atria The left atrium is normal in size. Aortic Valve The aortic valve was not well visualized. There is a normal trileaflet aortic valve. There is no aortic valve stenosis. There is no aortic valve regurgitation. Mitral Valve The mitral valve appears normal. There is no mitral valve regurgitation. There is no mitral valve stenosis. Pulmonic Valve The pulmonic valve was not well visualized. Tricuspid Valve Likely normal tricuspid valve structure and function. Tricuspid regurgitation envelope is inadequate for calculation of right ventricular systolic pressure. Moderately elevated right atrial pressure. Great Vessels All visible segments of the aorta are normal in size. The pulmonary artery was not well visualized. Venous The inferior vena cava is dilated and does not collapse with inspiration. Pericardium/Pleural Prominent epicardial adipose tissue noted. There is no evidence of pericardial effusion. Prior Study Comparison Changes noted compared to prior study dated: 05/07/2021. LV function low normal, RWMA cannot be ruled out due to poor endocardial definition despite the use of contrast. Measurements 2D Linear Measurements IVSd: 1.45 0.6-0.9/0.6-1.0 cm LVIDd: 4.26 3.9-5.3/4.2-5.9 cm LVIDd Index: 2.02 2.4-3.2/2.2-3.1 cm/m2 LVIDs: 2.92 2.0-3.6 cm LVPWd: 1.25 0.7-1.1 cm LA Diam: 4.00 2.7-3.8/3.0-4.0 cm LAIDs Index: 1.90 1.5-2.3 cm/m2 LV Mass: 270.24 67-162/88-224 g LV Mass Index: 128.08 43-95/49-115 g/m2 LVOT Diam: 2.10 3.0+(-)1.3 cm 2D Systolic Function EF 4C: 42.50 >55% EF 2C: 45.00 >55% EF BiP: 43.30 >55% Mitral Valve MV Pk E: 0.99 MV Decel Time: 230.00 E'Lateral: 6.96 E'Medial: 5.77 E/E' Med: 17.10 E/E' Lat: 14.20 PHT: 67.00 MVA PHT: 3.28 Decel Barton: 4.30 Aortic Valve AoV Pk Familia: 1.26 AoV Mn Familia: 0.87 AoV VTI: 0.23 AoV Pk Grad: 6.00 Aov Mn Grad: 3.00 JANICE Cont.VTI: 2.33 LVOT LVOT Pk Familia: 0.85 LVOT Mn Familia: 0.61 LVOT VTI: 0.15 LVOT Pk Grad: 3.00 LVOT Mn Grad: 2.00 LVOT Diam: 2.10 LVOT Area: 3.46 Diastolic Function MV Pk E: 0.99 E'Medial: 5.77 E/E' Med: 17.10 E' Laterial: 6.96 E/E' Lat: 14.20 Right Ventricle TAPSE (mm): 11.70 TVS' Familia: 9.68 Tricuspid Valve RA Press: 8.00 Great Vessels Aorta Sinus of Valsalva: 3.30 2.0-3.5 cm Ao Asc: 3.30 2.1-3.4 cm Pulmonary Valve PV Pk Familia: 1.11 Peak PV Grad: 5.00 Updated in Other Vendor System with Status of Final Paul Emil MD electronically signed on 10/10/2023 1:39:19 PM with status of Final
[2023-10-10] MEDS: Levothyroxine Sodium 150 MCG TABLET PO (07:16)
[2023-10-10 07:25] LABS: Glucose, Whole Blood 135 mg/dL (60-115)
[2023-10-10] MEDS: Divalproex Sodium 500 MG TABLET.DR PO (08:39)
--- NOTE | 2023-10-10 08:44 | P.CNNE_ITS ---
History of Present Illness Data of Consult Service Date: 10/10/23 Primary Care Provider: Adithya Gutierrez MD [facility] Reason for consult: Syncope 68 years old woman with underlying diagnosis of bipolar disorder and according to her reaction to antipsychotic medicines resulting in tremor and shaking came to hospital after an episode of unresponsiveness. It was witnessed by but there was no evidence of shaking type of episode. She did not have recollection of what had happened. She was not known to have seizure disorder but she had been falling Review of Systems 2 Review of Systems: Difficulty walking and falling and shaking PMFSH Past Medical History Medical History (Updated 10/10/23 @ 08:47 by Jeff Gutierrez MD) Paroxysmal atrial fibrillation Morbid obesity due to excess calories Non-insulin dependent type 2 diabetes mellitus Weakness Leg edema Bipolar 1 disorder Vertigo PTSD (post-traumatic stress disorder) History of cardioversion Arthritis Hypothyroidism History of wheezing Persistent atrial fibrillation Diabetes mellitus HTN (hypertension) LBBB (left bundle branch block) PAF (paroxysmal atrial fibrillation) Family History Family History Father No problems noted. Mother No problems noted. Other Mental health disorder Substance use disorder Surgical History Surgical History History of cardiac radiofrequency ablation History of eye surgery Hx of section Hx of colonoscopy Hx of cholecystectomy Hx of arthroscopy of right knee Social History Social History Household Members: Spouse and Children Household Members Other:: daughter + Housing: House Do you presently have visiting nurse or other home services: Yes Alcohol intake: former Comment: patient fll asleep Patient Tobacco Use Status: Former Tobacco user Quit Date: 1989 Smoked in Last 30 Days: No e-Cigarette/Vaping Use: Never Used Second Hand Smoke Exposure: No Use of substances other than those prescribed or required for medical reasons: No Currently Displaying Signs/Symptoms of Drug Intoxication Withdrawal: No Have you been hit, kicked, punched, or otherwise hurt by someone within the past year? If so, by whom?: No Do you feel safe in your current relationship?: Yes Is there a partner from a previous relationship who is making you feel unsafe now?: No Are you made to feel afraid or neglected: No Advance Directives: Yes Advance Directives on File: Yes Advance Directives Date on File: 06/29/23 Do you have thoughts of harming others: None Do you have a plan to hurt others: No Plan Recently lost weight without trying: No Nutrition Risks: No Nutritional Risk Patient : No : No Poor oral hygiene: No service: No Current occupational status: employed Sexual orientation: Straight/Heterosexual Cognitive needs: No Hearing needs: No Vision needs: Yes Meds Allergies Allergy/AdvReac Type Severity Reaction Status Date / Time aspirin [ASA] Allergy Intermediate GI PAIN, Verified 10/08/23 11:55 upset stomach hazelnut Allergy Unknown Unknown Verified 10/08/23 11:55 shellfish derived Allergy Unknown Unknown Verified 10/08/23 11:55 gluten Allergy Unknown Verified 10/08/23 11:55 sesame seeds Allergy Unknown Unknown Uncoded 10/08/23 11:55 Active Medications: Current Medications Acetaminophen (Acetaminophen 325 Mg Tablet) 650 mg PO Q6H PRN PRN Reason: Pain, Mild (Pain Scale 1-3) Last Admin: 10/09/23 14:40 Dose: 650 mg Dextrose (Dextrose 50 % 25 Gm/50 Ml Syringe) 25 gm IVPUSH Q15M PRN; Protocol PRN Reason: per Hypoglycemia Standing Ord. Divalproex Sodium (Divalproex Sodium 250 Mg Tablet.) 250 mg PO BEDTIME [facility] Last Admin: 10/09/23 21:26 Dose: 250 mg Divalproex Sodium (Divalproex Sodium 500 Mg Tablet.) 500 mg PO BID [facility] Last Admin: 10/10/23 08:39 Dose: 500 mg Glucose (Glucose Gel 15 Gm Gel..Gram.) 15 gm PO Q15M PRN; Protocol PRN Reason: per Hypoglycemia Standing Ord. Dextrose/Sodium Chloride (D5ns) 1,000 mls @ 100 mls/hr IVCONT .Q10H [facility] Last Admin: 10/10/23 07:56 Dose: Not Given Insulin Human Lispro (Insulin Lispro 100 Unit/Ml 3 Ml Vial) 0 unit SUBCUT QIDACHS [facility]; Protocol Last Admin: 10/10/23 07:32 Dose: Not Given Levothyroxine Sodium (Levothyroxine Sodium 150 Mcg Tablet) 150 mcg PO DAILY@0600 [facility] Last Admin: 10/10/23 07:16 Dose: 150 mcg Metoprolol Succinate (Metoprolol Succinate Er 50 Mg Tab.Er.24h) 50 mg PO BEDTIME [facility]; Protocol Last Admin: 10/09/23 21:26 Dose: 50 mg Pt Own Medication ( Eluxadoline [Viberzi ] 75 Mg Tablet) 75 mg PO BID [facility] Last Admin: 10/10/23 08:39 Dose: 75 mg Ondansetron HCl (Ondansetron Hcl 4 Mg/2 Ml Vial) 4 mg IVPUSH Q8H PRN PRN Reason: Nausea and Vomiting Rivaroxaban (Rivaroxaban 20 Mg Tablet) 20 mg PO DAILY@1700 [facility] Sodium Chloride (0.9 % Sodium Chloride Flush 3 Ml Syringe) 3 ml IVFLUSH QSHIFT [facility] Last Admin: 10/10/23 07:56 Dose: Not Given Trazodone HCl (Trazodone Hcl 50 Mg Tablet) 225 mg PO BEDTIME [facility] Last Admin: 10/09/23 21:26 Dose: 225 mg Home Medications Medication Instructions Recorded Confirmed Last Taken Type trazodone 150 mg tablet 225 mg PO BEDTIME 07/09/22 10/08/23 06/28/23 History divalproex 250 mg tablet,delayed 250 mg PO BEDTIME 06/10/23 10/08/23 10/07/23 History release divalproex 500 mg tablet,delayed 500 mg PO BID 06/10/23 10/08/23 06/29/23 History release metoprolol succinate 50 mg 50 mg PO BEDTIME 06/29/23 10/08/23 10/07/23 History tablet,extended release 24 hr eluxadoline 75 mg tablet (Viberzi) 75 mg PO BID 09/04/23 10/08/23 10/07/23 History Physical Exam 2 Vital Signs: Vital Signs: Last Vital Signs Temp 99.2 F 10/10/23 07:18 Pulse 94 10/10/23 07:18 Resp 20 10/10/23 07:18 BP 137/81 10/10/23 07:18 Pulse Ox 95 10/10/23 07:18 O2 Del Method Room Air 10/10/23 07:18 O2 Flow Rate 2 10/09/23 07:57 BMI result Body Mass Index 43.6 Neuro: Other: She is alert and awake with normal spontaneity of speech fluency comprehension and affect. Face is symmetrical. Visual russ are full. Speech is mildly dysarthric with cerebellar type tremor. Mild bilateral hand resting tremor and [id number] bilateral postural tremor is noted. [id number] testing revealed similar tremor. Deep tendon reflexes are trace to absent with flat plantars. Results Labs 10/09/23 10:27 10/09/23 10:27 Labs: Short CBC 10/09/23 Range/Units 10:27 WBC 4.7 L (4.8-10.8) X10*3/uL Hgb 10.0 L D (12.0-16.0) g/dl Hct 31.3 L D (37.0-47.0) % Plt Count 207 D (160-400) X10*3/uL BMP 10/09/23 10:27 Sodium 141 Potassium 3.9 Chloride 105 Carbon Dioxide 27 BUN 9 Creatinine 0.66 Calcium 8.3 L D Liver Function 10/09/23 Range/Units 10:27 Total Bilirubin 0.3 (0.0-1.0) mg/dL Direct Bilirubin 0.1 (0.0-0.5) mg/dL AST 23 (5-31) U/L ALT 9 (0-31) U/L Alkaline Phosphatase 75 (39-117) U/L Albumin 2.6 L (3.5-5.0) g/dL Head CT revealed moderate cerebellar atrophy and mild generalized cerebral atrophy. Microbiology Microbiology Results: Microbiology 10/08/23 18:18 Blood - Venous Blood Culture - Preliminary No growth after 24 hours. 10/08/23 18:18 Blood - Venous Blood Culture - Preliminary No growth after 24 hours. Assessment and Plan (1) Syncope: Qualifiers: Syncope type: unspecified Qualified Code(s): R55 - Syncope and collapse Status: Acute 68 years old woman who might have iatrogenic or orthostatic reason for syncope. Seizure disorder is a possibility with seemed less likely. 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 stated that she was also exposed to neuroleptics or antipsychotics resulting in some shaking. Some features on examination can be explained based upon that toe. Because of all this, she has at high risk for unsteadiness and falling and shaking. I explained this situation to her . There is no specific treatment and appropriate caution and care is advised with common sense measures to avoid any fall. She should always use an assisted device such as a cane, walker, or wheelchair for appointments. Procedures Date of Service Date of Service: 10/10/23
--- NOTE | 2023-10-10 09:16 | CONS_ITS ---
DATE OF SERVICE: 10/09/2023 REFERRING PHYSICIAN: Gloria Avila NP REASON FOR CONSULTATION: Diarrhea. HISTORY OF PRESENT ILLNESS: The patient is a pleasant 68-year-old woman who was admitted to the hospital after presenting to the emergency room with syncope. She was recently hospitalized with C diff causation and had upper endoscopy and colonoscopy, which is reviewed. Pathology results are pending, but there is no evidence of colitis or inflammatory bowel disease. The patient currently denies diarrhea or abdominal pain. PAST MEDICAL HISTORY: 1. Elevated BMI. 2. Bipolar disorder. 3. Atrial fibrillation, status post cardioversion. 4. Hypothyroidism. 5. Diabetes. 6. Hypertension. 7. Left bundle branch block. 8. Edema. CURRENT MEDICATIONS: Her current medication list is reviewed in the chart. ALLERGIES: MULTIPLE ALLERGIES ARE REVIEWED. FAMILY HISTORY: This is reviewed in electronic medical record and is noncontributory. SOCIAL HISTORY: There is no current tobacco, alcohol, or substance abuse. REVIEW OF SYSTEMS: SKIN: No pruritus. HEENT: Negative. CARDIOPULMONARY: No shortness of breath or chest pain. GASTROINTESTINAL: As above. GENITOURINARY: Negative. NEUROPSYCHIATRIC: Negative. PHYSICAL EXAMINATION: GENERAL: Shows a pleasant female, lying comfortably in bed. VITAL SIGNS: Reviewed in the electronic medical record and are stable. SKIN: Anicteric. HEENT: Shows no scleral icterus. NECK: Without lymphadenopathy or thyromegaly. LUNGS: Clear. HEART: Shows a regular rate and rhythm. S1, S2. No murmur. ABDOMEN: Soft without focal masses or tenderness. Bowel sounds are present. No organomegaly is noted. EXTREMITIES: Do show mild lower extremity edema. LABORATORY DATA: Review of her laboratory studies and imaging is performed. Review of her intake and output shows no reported diarrhea since admission. IMPRESSION: Diarrhea. At this point. Her diarrhea appears resolved. If she does develop recurrent symptoms, she could be started on loperamide. Her last stool testing from August was negative for any treatable infectious etiology. She does have some results pending from her colonoscopy including pathology as well as IBD markers, but there did not appear to be evidence of IBD on her procedure. Clostridium difficile Testing was negative on October 01. Thanks for asking me to see her. I will follow her in the hospital with you. MD MAYCO Nelson/KERVIN / [id number]
--- NOTE | 2023-10-10 09:50 | P.PNIM_ITS ---
Subjective Subjective Date of Service: 10/10/23 Review of Systems Follow up weakness, presyncope no pain, nausea or vomiting Physical Exam 2 Vital Signs: Vital Signs: Last Vital Signs Temp 99.2 F 10/10/23 07:18 Pulse 94 10/10/23 07:18 Resp 20 10/10/23 07:18 BP 137/81 10/10/23 07:18 Pulse Ox 95 10/10/23 07:18 O2 Del Method Room Air 10/10/23 07:18 O2 Flow Rate 2 10/09/23 07:57 BMI result Body Mass Index 43.6 Appearing in no acute distress lung sounds are clear to auscultation heart regular rate rhythm, clear S1, S2 positive bowel sounds, abdomen is soft, nontender neuro patient is alert x3, no focal deficits Objective Data Active Medications Acetaminophen (Acetaminophen 325 Mg Tablet) 650 mg PO Q6H PRN PRN Reason: Pain, Mild (Pain Scale 1-3) Last Admin: 10/09/23 14:40 Dose: 650 mg Documented By: ELYSSA Dextrose (Dextrose 50 % 25 Gm/50 Ml Syringe) 25 gm IVPUSH Q15M PRN; Protocol PRN Reason: per Hypoglycemia Standing Ord. Divalproex Sodium (Divalproex Sodium 250 Mg Tablet.) 250 mg PO BEDTIME [facility] Last Admin: 10/09/23 21:26 Dose: 250 mg Documented By: FLAKITA Divalproex Sodium (Divalproex Sodium 500 Mg Tablet.) 500 mg PO BID [facility] Last Admin: 10/10/23 08:39 Dose: 500 mg Documented By: ARCHIE Glucose (Glucose Gel 15 Gm Gel..Gram.) 15 gm PO Q15M PRN; Protocol PRN Reason: per Hypoglycemia Standing Ord. Dextrose/Sodium Chloride (D5ns) 1,000 mls @ 100 mls/hr IVCONT .Q10H [facility] Last Admin: 10/10/23 07:56 Dose: Not Given Documented By: COTEMA Non-Admin Reason: IV Running Insulin Human Lispro (Insulin Lispro 100 Unit/Ml 3 Ml Vial) 0 unit SUBCUT QIDACHS [facility]; Protocol Last Admin: 10/10/23 07:32 Dose: Not Given Documented By: ARCHIE Non-Admin Reason: No Insulin Coverage Levothyroxine Sodium (Levothyroxine Sodium 150 Mcg Tablet) 150 mcg PO DAILY@0600 [facility] Last Admin: 10/10/23 07:16 Dose: 150 mcg Documented By: SERENA Metoprolol Succinate (Metoprolol Succinate Er 50 Mg Tab.Er.24h) 50 mg PO BEDTIME [facility]; Protocol Last Admin: 10/09/23 21:26 Dose: 50 mg Documented By: FLAKITA Pt Own Medication ( Eluxadoline [Viberzi ] 75 Mg Tablet) 75 mg PO BID [facility] Last Admin: 10/10/23 08:39 Dose: 75 mg Documented By: ARCHIE Ondansetron HCl (Ondansetron Hcl 4 Mg/2 Ml Vial) 4 mg IVPUSH Q8H PRN PRN Reason: Nausea and Vomiting Rivaroxaban (Rivaroxaban 20 Mg Tablet) 20 mg PO DAILY@1700 [facility] Sodium Chloride (0.9 % Sodium Chloride Flush 3 Ml Syringe) 3 ml IVFLUSH QSHIFT [facility] Last Admin: 10/10/23 07:56 Dose: Not Given Documented By: JENNYFER Non-Admin Reason: IV Running Trazodone HCl (Trazodone Hcl 50 Mg Tablet) 225 mg PO BEDTIME [facility] Last Admin: 10/09/23 21:26 Dose: 225 mg Documented By: FLAKITA Labs 10/09/23 10:27 10/09/23 10:27 Labs: Laboratory Results - last 24 hr 10/09/23 10/09/23 10/09/23 10:27 10:37 11:32 MCV 95.4 MCH 30.5 MCHC 31.9 RDW 12.9 Plt Count 207 D MPV 8.9 L Absolute Nucleated RBC 0.000 Nucleated RBC % (auto) 0.0 VBG pH 7.52 H VBG pCO2 34 VBG pO2 89 VBG HCO3 27 H VBG O2 Saturation 98.0 VBG Base Excess 5.2 Anion Gap 13 Estim Creat Clear Calc 100.6 Estimated GFR > 60 POC Glucose 167 H Random Glucose 220 H Calcium 8.3 L D Magnesium 1.7 Total Bilirubin 0.3 Direct Bilirubin 0.1 AST 23 ALT 9 Alkaline Phosphatase 75 B-Natriuretic Peptide 161 H Total Protein 5.8 L Albumin 2.6 L 10/09/23 10/09/23 10/10/23 16:13 20:14 07:17 MCV MCH MCHC RDW Plt Count MPV Absolute Nucleated RBC Nucleated RBC % (auto) VBG pH VBG pCO2 VBG pO2 VBG HCO3 VBG O2 Saturation VBG Base Excess Anion Gap Estim Creat Clear Calc Estimated GFR POC Glucose 176 H 179 H 135 H Random Glucose Calcium Magnesium Total Bilirubin Direct Bilirubin AST ALT Alkaline Phosphatase B-Natriuretic Peptide Total Protein Albumin Microbiology Microbiology Results: Microbiology 10/08/23 18:18 Blood Culture - Preliminary Blood - Venous No growth after 24 hours. 10/08/23 18:18 Blood Culture - Preliminary Blood - Venous No growth after 24 hours. Assessment and Plan (1) Fever: Status: Acute Assessment and Plan: 68 year old women PMH HTN, paroxysmal afib, bipolar, cdif colonizer, IBS, DM, hypothyroid, presented with presyncope and weakness. Recent discharge 10/07/2023 treated for C diff colonization in sepsis secondary to UTI. Patient returned after a presyncopal episode while sitting on the toilet and weakness. Presyncope. Unsure there was actual loss of consciousness Will monitor on telemetry to rule out arrhythmia Monitor electrolytes Echocardiogram to assess cardiac function if normal consider neurology consultation Stable blood pressure IV fluids stopped neuro consult> no significant findings, take safety precautions when ambulating to avoid falls Generalized malaise and encephalopathy Decline over the last year, contributes this to diarrhea episodes Labs within normal limits Physical therapy consultation pending IV fluids Check blood cultures, UA Supportive care psych consult for medications managament> stop depakote for now, decrease trazadone to 150 mg at bedtime Diarrhea History of C diff colonization Had recent colonoscopy and endoscopy with no significant finding Monitor for any electrolyte abnormalities no diarrhea noted Diabetes mellitus 2 A1C of 6.5, diet controlled diabetic diet follow POCs Paroxysmal afib with rvr HR controlled continue toprol resume xarelto today (held in light of recent colonoscopy) Bipolar disorder depakote HTN toprol Hypothyroid synthroid DVT prophylaxis - xarelto full code attending - dr. Galdamez Patient will likely need 48 hours for treatment of presyncope requiring telemetry monitoring, echocardiogram to assess for heart function to rule out arrhythmia, close monitoring of hypoxia requiring oxygen therapy and close lab monitoring due to diarrhea, monitoring for electrolyte abnormalities. Quality Stroke Does the patient have a stroke diagnosis?: No VTE Prior VTE?: No VTE Risk Level:: Medical - moderate - high VTE Device Contraindication: Treatment Not Indicated VTE Drug Contraindication: N/A - Med Ordered
[2023-10-10 11:11] LABS: Glucose, Whole Blood 184 mg/dL (60-115)
--- NOTE | 2023-10-10 13:25 | MHC.CM.PN ---
EMR REVIEWED AND PER MD ROUNDS, PT WILL NEED A PSYCH EVAL/P.T. EVAL TO DETERMINE PLAN. EARLY REFERRAL SENT TO [facility] PER REQUEST OF DAUGHTER/HCP TO BE CLOSER TO HER SHOULD STR BE REC. NO RESPONSE TO REFFERAL IN [facility]. CALL PLACED TO CENTER AND REQUEST CALL BACK.
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
--- NOTE | 2023-10-10 15:20 | P.CDIM_ITS ---
PROVIDER RESPONSE TEXT: To clarify, the appropriate diagnosis supported by the clinical indicators: Obesity Due to excess calories QUERY TEXT: PHYSICIAN'S DOCUMENTATION REQUEST Date of Query: 10/10/2023 09:55 AM EST Patient Name: Bianca Kwok Admit Date: 10/08/2023 Dear Gloria Avila, A review of the medical record indicates additional documentation may be needed. Please review below and update the documentation accordingly. Clinical Indicators: Height: ( ) 5'3 Weight: ( ) 111.6 kg BMI: ( ) 43.6 If possible, please provide an associated diagnosis related to the abnormal BMI, such as: Overweight Obesity Due to excess calories Obesity Drug induced Obesity Due to other cause Specify the other cause Severe or Morbid Obesity With alveolar hypoventilation Severe or Morbid Obesity Without alveolar hypoventilation BMI is not significant Other (explain) Clinically unable to determine (explain) Thank you, Adelaide Swift RN Use of terms such as suspected, likely, concern for, or probable (associated with a specific diagnosi s that is being evaluated, monitored, or treated as if it exists) are acceptable and can be coded in the inpatient se tting, when documented at the time of discharge. Please use your independent medical judgment in providing your response. THIS QUERY IS PART OF THE PERMANENT MEDICAL RECORD
[2023-10-10 15:36] LABS: Estimated Average Glucose 140 mg/dL; Hemoglobin A1c % 6.5 % (<6.0)
[2023-10-10 16:13] LABS: Glucose, Whole Blood 145 mg/dL (60-115)
[2023-10-10] MEDS: Rivaroxaban 20 MG TABLET PO (17:59)
[2023-10-10] MEDS: 0.9 % Sodium Chloride Flush 3 ML SYRINGE IVFLUSH ×2 (17:59→20:25)
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
[2023-10-10 20:07] LABS: Glucose, Whole Blood 181 mg/dL (60-115)
[2023-10-10] MEDS: Metoprolol Succinate ER 50 MG TAB.ER.24H PO (20:25)
[2023-10-10] MEDS: traZODone HCL 50 MG TABLET 150 MG PO (20:25)
[2023-10-11] VITALS (7 sets, daily range): BP systolic 123–145; BP diastolic 69–85; PULSE 82–117; RESP 15–20; TEMP 36–37; O2SAT 92–93
--- NOTE | 2023-10-11 | ECG_ITS ---
Test Reason : TACHYCARDIA Blood Pressure : / mmHG Vent. Rate : 117 BPM Atrial Rate : 000 BPM P-R Int : 000 ms QRS Dur : 124 ms QT Int : 378 ms P-R-T Axes : 000 -25 151 degrees QTc Int : 527 ms Atrial fibrillation with rapid ventricular response Anterior infarct (cited on or before 08-OCT-2023) T wave abnormality, consider lateral ischemia Abnormal ECG When compared with ECG of 08-OCT-2023 12:01, No significant changes seen Referred By: Gloria Avila Electronically Signed By:Paul Stein
[2023-10-11] MEDS: Levothyroxine Sodium 150 MCG TABLET PO (05:24)
[2023-10-11 07:21] LABS: Glucose, Whole Blood 145 mg/dL (60-115)
[2023-10-11] MEDS: 0.9 % Sodium Chloride Flush 3 ML SYRINGE IVFLUSH ×3 (07:30→20:45)
[2023-10-11 10:54] LABS: Glucose, Whole Blood 149 mg/dL (60-115)
--- NOTE | 2023-10-11 11:49 | HO.PM.IMPN ---
Subjective Subjective Date of Service: 10/11/23 Review of Systems Follow up weakness, presyncope no pain, nausea or vomiting Physical Exam Vital Signs: Vital Signs: Last Vital Signs Temp 98.6 F 10/11/23 07:19 Pulse 117 H 10/11/23 07:19 Resp 20 10/11/23 07:19 BP 145/85 H 10/11/23 07:19 Pulse Ox 92 10/11/23 07:19 O2 Del Method Room Air 10/11/23 07:19 O2 Flow Rate 2 10/09/23 07:57 BMI result Body Mass Index 43.6 Appearing in no acute distress lung sounds are clear to auscultation heart regular rate rhythm, clear S1, S2 positive bowel sounds, abdomen is soft, nontender neuro patient is alert x3, no focal deficits Objective Data Active Medications Acetaminophen (Acetaminophen 325 Mg Tablet) 650 mg PO Q6H PRN PRN Reason: Pain, Mild (Pain Scale 1-3) Last Admin: 10/09/23 14:40 Dose: 650 mg Documented By: ELYSSA Dextrose (Dextrose 50 % 25 Gm/50 Ml Syringe) 25 gm IVPUSH Q15M PRN; Protocol PRN Reason: per Hypoglycemia Standing Ord. Glucose (Glucose Gel 15 Gm Gel..Gram.) 15 gm PO Q15M PRN; Protocol PRN Reason: per Hypoglycemia Standing Ord. Insulin Human Lispro (Insulin Lispro 100 Unit/Ml 3 Ml Vial) 0 unit SUBCUT QIDACHS [facility]; Protocol Last Admin: 10/11/23 11:09 Dose: Not Given Documented By: RAMAN Non-Admin Reason: No Insulin Coverage Levothyroxine Sodium (Levothyroxine Sodium 150 Mcg Tablet) 150 mcg PO DAILY@0600 [facility] Last Admin: 10/11/23 05:24 Dose: 150 mcg Documented By: ED Metoprolol Succinate (Metoprolol Succinate Er 50 Mg Tab.Er.24h) 50 mg PO BEDTIME [facility]; Protocol Last Admin: 10/10/23 20:25 Dose: 50 mg Documented By: ED Pt Own Medication ( Eluxadoline [Viberzi ] 75 Mg Tablet) 75 mg PO BID [facility] Last Admin: 10/11/23 07:30 Dose: 75 mg Documented By: RAMAN Ondansetron HCl (Ondansetron Hcl 4 Mg/2 Ml Vial) 4 mg IVPUSH Q8H PRN PRN Reason: Nausea and Vomiting Rivaroxaban (Rivaroxaban 20 Mg Tablet) 20 mg PO DAILY@1700 [facility] Last Admin: 10/10/23 17:59 Dose: 20 mg Documented By: ARCHIE Sodium Chloride (0.9 % Sodium Chloride Flush 3 Ml Syringe) 3 ml IVFLUSH QSHIFT [facility] Last Admin: 10/11/23 07:30 Dose: 3 ml Documented By: RAMAN Trazodone HCl (Trazodone Hcl 50 Mg Tablet) 150 mg PO BEDTIME [facility] Last Admin: 10/10/23 20:25 Dose: 150 mg Documented By: ED Labs 10/09/23 10:27 10/09/23 10:27 Labs: Laboratory Results - last 24 hr 10/10/23 10/10/23 10/10/23 15:20 16:10 20:00 POC Glucose 145 H 181 H Estimat Average Glucose 140 Hemoglobin A1c % 6.5 H 10/11/23 10/11/23 07:14 10:49 POC Glucose 145 H 149 H Estimat Average Glucose Hemoglobin A1c % Microbiology Microbiology Results: Microbiology 10/08/23 18:18 Blood Culture - Preliminary Blood - Venous No growth after 48 hours. 10/08/23 18:18 Blood Culture - Preliminary Blood - Venous No growth after 48 hours. Assessment and Plan (1) Fever: Status: Acute Assessment and Plan: 68 year old women PMH HTN, paroxysmal afib, bipolar, cdif colonizer, IBS, DM, hypothyroid, presented with presyncope and weakness. Recent discharge 10/07/2023 treated for C diff colonization in sepsis secondary to UTI. Patient returned after a presyncopal episode while sitting on the toilet and weakness. Bipolar disorder Discussed case with psych provider, symptoms of tremors, weakness, diarrhea may be related to Medications, specifically depakote Depakot has been held, psych provider to monitor status Trazadone dose decreased from 225mg to 150mg at bedtime Paroxysmal afib with rvr HR consistently on the higher side Increase metoprolol to 50 mg twice Daily xarelto Presyncope. Unsure there was actual loss of consciousness no arrythmias noted on Monitor electrolytes Echocardiogram>normal EF Stable blood pressure s/p fluids stopped neuro consult> no significant findings, take safety precautions when ambulating to avoid falls, chronic atrophy Generalized malaise and encephalopathy Decline over the last year, contributes this to diarrhea episodes but no diarrhea during this admission Labs within normal limits Physical therapy rec>home with PT blood cultures neg, UA Supportive care psych consult for medications managament> stop depakote for now, decrease trazadone to 150 mg at bedtime Diarrhea History of C diff colonization in the past Had recent colonoscopy and endoscopy with no significant finding Monitor for any electrolyte abnormalities no diarrhea noted during this admission Diabetes mellitus 2 A1C of 6.5, diet controlled diabetic diet follow POCs HTN toprol Hypothyroid synthroid DVT prophylaxis - xarelto full code attending - dr. Galdamez Patient will likely need 48 hours for treatment of presyncope requiring telemetry monitoring, echocardiogram to assess for heart function to rule out arrhythmia, close monitoring of hypoxia requiring oxygen therapy and close lab monitoring due to diarrhea, monitoring for electrolyte abnormalities. Quality Stroke Does the patient have a stroke diagnosis?: No VTE Prior VTE?: No VTE Risk Level:: Medical - moderate - high VTE Device Contraindication: Treatment Not Indicated VTE Drug Contraindication: N/A - Med Ordered
[2023-10-11] MEDS: Acetaminophen 325 MG TABLET 650 MG PO (15:51)
[2023-10-11] MEDS: Metoprolol Tartrate 25 MG TABLET PO (16:04)
[2023-10-11] MEDS: Rivaroxaban 20 MG TABLET PO (16:05)
--- NOTE | 2023-10-11 16:19 | HO.PSYCHPN ---
Subjective Subjective Date of Service: 10/11/23 Reason For Visit: SYNCOPAL EPISODE Interim History: Pt seen in bed. She denies any physical concerns. No changes in mood. Some confusion and difficulty remembering details about her medical treatment here and prior to coming here. visible resting and action tremors bilat but more pronounced on right side. would assume if any contribution of depakote to tremors, improvement may take some days to see. Otherwise, no SI/HI. No psychosis or delusions noted. Review of Systems Review of Systems Denies chest pain Denies shortness of breath Denies nausea vomiting diarrhea Denies fever chills Yes all other systems are reviewed and are negative and Unobtainable due to mental status Mental Status Exam Mental Status Exam Narrative: Appearance: wearing hospital gown, in NAD Psychomotor: resting and action tremors, more pronounced on right side upper extremity Behavior: cooperative Speech: clear, normal rate/rhythm/volume, spontaneous TP: mostly linear TC: feeling better physically but affected by severity of tremors Mood: okay Affect: congruent, somewhat constricted affect SI: none HI: none VH/AH: none Delusions: none Insight/judgment: fair x 2. Memory/cog: alert, oriented to place, situation. May benefit from completing MOCA. Diagnostics Vital Signs (24Hr): Vital Signs - 24 hr 10/10/23 19:56 10/10/23 23:35 10/11/23 04:00 Temperature 97.3 F 96.8 F 96.8 F Pulse Rate 110 H 117 H 117 H Respiratory Rate 18 16 16 Blood Pressure 132/63 126/62 131/71 Pulse Oximetry 92 93 93 Oxygen Delivery Method Room Air Room Air Room Air 10/11/23 07:19 10/11/23 12:00 10/11/23 15:07 Temperature 98.6 F 98.6 F 97 F Pulse Rate 117 H 87 115 H Respiratory Rate 20 16 16 Blood Pressure 145/85 H 140/76 H 144/79 H Pulse Oximetry 92 93 92 Oxygen Delivery Method Room Air Room Air Room Air BMI result Body Mass Index 43.6 Labs 10/13/23 05:49 10/13/23 05:49 Labs: Laboratory Results - last 48 hr 10/09/23 10/09/23 10/10/23 16:13 20:14 07:17 POC Glucose 176 H 179 H 135 H Estimat Average Glucose Hemoglobin A1c % 10/10/23 10/10/23 10/10/23 11:07 15:20 16:10 POC Glucose 184 H 145 H Estimat Average Glucose 140 Hemoglobin A1c % 6.5 H 10/10/23 10/11/23 10/11/23 20:00 07:14 10:49 POC Glucose 181 H 145 H 149 H Estimat Average Glucose Hemoglobin A1c % Imaging Radiology Impressions: ITS Impressions Chest X-Ray 10/08/23 12:46 IMPRESSION: Enlarged cardiac silhouette, question slightly increased from yesterday's exam. Low lung volumes. Left perihilar atelectasis or small infiltrate Medications Medications Current Medications Acetaminophen (Acetaminophen 325 Mg Tablet) 650 mg PO Q6H PRN PRN Reason: Pain, Mild (Pain Scale 1-3) Last Admin: 10/11/23 15:51 Dose: 650 mg Dextrose (Dextrose 50 % 25 Gm/50 Ml Syringe) 25 gm IVPUSH Q15M PRN; Protocol PRN Reason: per Hypoglycemia Standing Ord. Glucose (Glucose Gel 15 Gm Gel..Gram.) 15 gm PO Q15M PRN; Protocol PRN Reason: per Hypoglycemia Standing Ord. Insulin Human Lispro (Insulin Lispro 100 Unit/Ml 3 Ml Vial) 0 unit SUBCUT QIDACHS [facility]; Protocol Last Admin: 10/11/23 11:09 Dose: Not Given Levothyroxine Sodium (Levothyroxine Sodium 150 Mcg Tablet) 150 mcg PO DAILY@0600 [facility] Last Admin: 10/11/23 05:24 Dose: 150 mcg Metoprolol Succinate (Metoprolol Succinate Er 50 Mg Tab.Er.24h) 50 mg PO BID [facility]; Protocol Pt Own Medication ( Eluxadoline [Viberzi ] 75 Mg Tablet) 75 mg PO BID [facility] Last Admin: 10/11/23 07:30 Dose: 75 mg Ondansetron HCl (Ondansetron Hcl 4 Mg/2 Ml Vial) 4 mg IVPUSH Q8H PRN PRN Reason: Nausea and Vomiting Rivaroxaban (Rivaroxaban 20 Mg Tablet) 20 mg PO DAILY@1700 [facility] Last Admin: 10/11/23 16:05 Dose: 20 mg Sodium Chloride (0.9 % Sodium Chloride Flush 3 Ml Syringe) [facility] Last Admin: 10/11/23 15:52 Dose: 3 ml Trazodone HCl (Trazodone Hcl 50 Mg Tablet) 150 mg PO BEDTIME [facility] Last Admin: 10/10/23 20:25 Dose: 150 mg Allergies Allergies Allergy/AdvReac Type Severity Reaction Status Date / Time aspirin [ASA] Allergy Intermediate GI PAIN, Verified 10/08/23 11:55 upset stomach hazelnut Allergy Unknown Unknown Verified 10/08/23 11:55 shellfish derived Allergy Unknown Unknown Verified 10/08/23 11:55 gluten Allergy Unknown Verified 10/08/23 11:55 sesame seeds Allergy Unknown Unknown Uncoded 10/08/23 11:55 Assessment & Plan Assessment & Plan (1) Bipolar 1 disorder: Status: Acute Code(s): F31.9 - Bipolar disorder, unspecified Plan Psychiatric following patient due to concern of depakote contributing to some cognitive impairments/ tremors. So far, no exacerbation of any psych symptoms, but may be soon to see any as depakote was stopped yesterday. Improvement of tremors also early to see, if we will see any. Reason for continued inpatient stay Substantial Risk for: inability to function Time Spent With Patient Time: Total time managing care of this patient today ____ minutes.
[2023-10-11 16:28] LABS: Glucose, Whole Blood 117 mg/dL (60-115)
[2023-10-11 20:26] LABS: Glucose, Whole Blood 164 mg/dL (60-115)
[2023-10-11] MEDS: traZODone HCL 50 MG TABLET 150 MG PO (20:44)
[2023-10-11] MEDS: Metoprolol Succinate ER 50 MG TAB.ER.24H PO (20:45)
[2023-10-12 04:00] VITALS: BP 120/71; PULSE 62; RESP 17; TEMP 36.9; O2SAT 94
[2023-10-12] MEDS: Levothyroxine Sodium 150 MCG TABLET PO (05:25)
[2023-10-12 07:15] LABS: Glucose, Whole Blood 116 mg/dL (60-115)
[2023-10-12 07:34] VITALS: BP 125/69; PULSE 102; RESP 20; TEMP 36.7; O2SAT 92
[2023-10-12] MEDS: Metoprolol Succinate ER 50 MG TAB.ER.24H PO ×2 (08:11→21:38)
[2023-10-12] MEDS: 0.9 % Sodium Chloride Flush 3 ML SYRINGE IVFLUSH ×3 (08:22→21:38)
[2023-10-12 11:07] LABS: Glucose, Whole Blood 147 mg/dL (60-115)
[2023-10-12 11:29] VITALS: BP 128/61; PULSE 107; RESP 20; TEMP 36.2; O2SAT 93
--- NOTE | 2023-10-12 12:41 | MHC.CM.PN ---
EMR reviewed. Per MD rounds not cleared for DC at this time. CM will continue to follow.
--- NOTE | 2023-10-12 14:30 | P.PNIM_ITS ---
Subjective Subjective Date of Service: 10/12/23 Interval History: No acute issues overnight. Voices no complaints Review of Systems Denies chest pain Denies shortness of breath Denies nausea vomiting diarrhea Denies fever chills Physical Exam 2 Vital Signs: Vital Signs: Last Vital Signs Temp 97.1 F 10/12/23 11:29 Pulse 107 H 10/12/23 11:29 Resp 20 10/12/23 11:29 BP 128/61 10/12/23 11:29 Pulse Ox 93 10/12/23 11:29 O2 Del Method Room Air 10/12/23 11:29 O2 Flow Rate 2 10/09/23 07:57 BMI result Body Mass Index 43.6 Const: Other: Awake alert no acute distress Resp: Other: Clear to auscultation bilaterally no rales rhonchi or wheezes Cardio: Other: No S4; positive S1-S2; no S3 murmurs rubs GI: Other: Soft nontender nondistended normoactive bowel sounds Extrem: Other: No edema Objective Data Active Medications Acetaminophen (Acetaminophen 325 Mg Tablet) 650 mg PO Q6H PRN PRN Reason: Pain, Mild (Pain Scale 1-3) Last Admin: 10/11/23 15:51 Dose: 650 mg Documented By: RAMAN Dextrose (Dextrose 50 % 25 Gm/50 Ml Syringe) 25 gm IVPUSH Q15M PRN; Protocol PRN Reason: per Hypoglycemia Standing Ord. Glucose (Glucose Gel 15 Gm Gel..Gram.) 15 gm PO Q15M PRN; Protocol PRN Reason: per Hypoglycemia Standing Ord. Insulin Human Lispro (Insulin Lispro 100 Unit/Ml 3 Ml Vial) 0 unit SUBCUT QIDACHS [facility]; Protocol Last Admin: 10/12/23 11:10 Dose: Not Given Documented By: RAMAN Non-Admin Reason: No Insulin Coverage Levothyroxine Sodium (Levothyroxine Sodium 150 Mcg Tablet) 150 mcg PO DAILY@0600 [facility] Last Admin: 10/12/23 05:25 Dose: 150 mcg Documented By: ED Metoprolol Succinate (Metoprolol Succinate Er 50 Mg Tab.Er.24h) 50 mg PO BID [facility]; Protocol Last Admin: 10/12/23 08:11 Dose: 50 mg Documented By: RAMAN Pt Own Medication ( Eluxadoline [Viberzi ] 75 Mg Tablet) 75 mg PO BID [facility] Last Admin: 10/12/23 08:22 Dose: 75 mg Documented By: RAMAN Ondansetron HCl (Ondansetron Hcl 4 Mg/2 Ml Vial) 4 mg IVPUSH Q8H PRN PRN Reason: Nausea and Vomiting Rivaroxaban (Rivaroxaban 20 Mg Tablet) 20 mg PO DAILY@1700 [facility] Last Admin: 10/11/23 16:05 Dose: 20 mg Documented By: RAMAN Sodium Chloride (0.9 % Sodium Chloride Flush 3 Ml Syringe) 3 ml IVFLUSH QSHIFT [facility] Last Admin: 10/12/23 08:22 Dose: 3 ml Documented By: RAMAN Trazodone HCl (Trazodone Hcl 50 Mg Tablet) 150 mg PO BEDTIME [facility] Last Admin: 10/11/23 20:44 Dose: 150 mg Documented By: ED Labs 10/09/23 10:27 10/09/23 10:27 Labs: Laboratory Results - last 24 hr 10/11/23 10/11/23 10/12/23 16:17 20:20 07:10 POC Glucose 117 H 164 H 116 H 10/12/23 11:02 POC Glucose 147 H Assessment and Plan (1) Bipolar 1 disorder: Status: Acute (2) Paroxysmal atrial fibrillation: Status: Acute Quality Stroke Does the patient have a stroke diagnosis?: No VTE Prior VTE?: No VTE Risk Level:: Medical - moderate - high VTE Device Contraindication: Treatment Not Indicated VTE Drug Contraindication: N/A - Med Ordered
[2023-10-12] MEDS: Metoprolol Tartrate 5 MG/5 ML VIAL IVPUSH ×2 (15:19→18:06)
[2023-10-12 16:00] VITALS: BP 117/78; PULSE 117; RESP 16; TEMP 36.6; O2SAT 93
[2023-10-12 16:54] LABS: Glucose, Whole Blood 178 mg/dL (60-115)
[2023-10-12] MEDS: Rivaroxaban 20 MG TABLET PO (17:40)
[2023-10-12 19:43] VITALS: BP 133/90; PULSE 116; RESP 17; TEMP 36.4; O2SAT 92
[2023-10-12 20:42] LABS: Glucose, Whole Blood 167 mg/dL (60-115)
[2023-10-12] MEDS: traZODone HCL 50 MG TABLET 150 MG PO (21:38)
[2023-10-12 23:31] VITALS: BP 116/68; PULSE 109; RESP 18; TEMP 36.1; O2SAT 93
[2023-10-13] VITALS (7 sets, daily range): BP systolic 97–131; BP diastolic 53–77; PULSE 90–101; RESP 16–20; TEMP 36.1–36.4; O2SAT 92–94
[2023-10-13] MEDS: Levothyroxine Sodium 150 MCG TABLET PO (05:12)
[2023-10-13 05:53] LABS: MANUAL DIFF FLAG NO
[2023-10-13 06:00] LABS: Basophils Percent Auto 0.7 % (0-2); Eosinophils Absolute Auto 0.3 X10*3/uL (0.0-0.4); Eosinophils Percent Auto 4.5 % (0-4); Hematocrit 33.5 % (37.0-47.0); Hemoglobin 10.9 g/dl (12.0-16.0); Imm Gran Abs Auto 0.03 X10*3/uL (0.00-0.03); Imm Gran Pct Auto 0.5 % (0.0-0.4); Lymphocytes Absolute Auto 2.6 X10*3/uL (1.2-4.9); Lymphocytes Percent Auto 44.8 % (20-40); Mean Corpuscular HGB Conc 32.5 g/dl (31.0-35.0); Mean Corpuscular Hemoglobin 30.4 pg (27.0-33.0); Mean Corpuscular Volume 93.3 fL (80.0-98.0); Mean Platelet Volume 8.9 fL (9.4-12.3); Monocytes Absolute Auto 0.6 X10*3/uL (0.1-1.2); Monocytes Percent Auto 9.5 % (2-11); Neutrophils Absolute Auto 2.3 x10*3/uL (2.0-8.3); Platelet Count 271 X10*3/uL (160-400); Red Blood Count 3.59 X10*6/uL (4.20-5.50); White Blood Count 5.8 X10*3/uL (4.8-10.8)
[2023-10-13 06:17] LABS: Alanine Aminotransferase 12 U/L (0-31); Albumin Level 2.8 g/dL (3.5-5.0); Alkaline Phosphatase 79 U/L (39-117); Anion Gap 14 (12-20); Aspartate Amino Transferase 29 U/L (5-31); Bilirubin Total 0.4 mg/dL (0.0-1.0); Blood Urea Nitrogen 11 mg/dL (9-16); Calcium 8.9 mg/dL (8.4-10.2); Carbon Dioxide 28 mmol/L (22-29); Chloride 103 mmol/L (96-108); Creatinine Clr Calc Pharmacy 100.6; Estimated Glomerular Filt Rate > 60; Glucose Fasting 130 mg/dL (60-99); Potassium 4.2 mmol/L (3.3-5.1); Sodium 141 mmol/L (135-145); Total Protein 6.5 g/dL (6.5-8.0)
[2023-10-13 07:20] LABS: Glucose, Whole Blood 129 mg/dL (60-115)
[2023-10-13] MEDS: Metoprolol Succinate ER 50 MG TAB.ER.24H PO ×2 (07:33→20:56)
[2023-10-13] MEDS: 0.9 % Sodium Chloride Flush 3 ML SYRINGE IVFLUSH ×2 (07:35→17:05)
[2023-10-13 11:18] LABS: Glucose, Whole Blood 158 mg/dL (60-115)
[2023-10-13 14:26] LABS: Magnesium 1.6 mg/dL (1.6-2.6)
--- NOTE | 2023-10-13 15:10 | MHC.CM.PN ---
PER HOSPITALIST PT WILL DC HOME TOMORROW. PLAN REMAINS RETURN HOME WITH [facility] - [facility] AND [facility] UPDATES SENT TO [facility]. [facility] TRANSPORTATION BOOKED WITH [facility] FOR 10/14/23 AT 10AM. ISABELLA RN, PATIENT, , AND DTR AWARE. IMM DELIVERED. CM WILL CONTINUE TO FOLLOW.
[2023-10-13 16:25] LABS: Glucose, Whole Blood 153 mg/dL (60-115)
--- NOTE | 2023-10-13 16:55 | P.PNIM_ITS ---
Subjective Subjective Date of Service: 10/13/23 Interval History: seen and examined this morning follow up for what seems like an episode of presyncope does not appear to have had LOC no overnight events no specific complaints Review of Systems Review of Systems: Yes all other systems are reviewed and are negative Constitutional Constitutional: Denies chills and Denies fever(s) Cardiovascular Cardiovascular: Denies chest pain Respiratory Respiratory: Denies cough Gastrointestinal Gastrointestinal: Denies abdominal pain Physical Exam 2 Vital Signs: Vital Signs: Last Vital Signs Temp 96.9 F 10/13/23 15:25 Pulse 100 10/13/23 15:25 Resp 16 10/13/23 15:25 BP 97/53 L 10/13/23 15:25 Pulse Ox 93 10/13/23 15:25 O2 Del Method Room Air 10/13/23 15:25 O2 Flow Rate 2 10/09/23 07:57 BMI result Body Mass Index 43.6 Const: General: cooperative, comfortable, no acute distress, alert and awake Nutritional Appearance: obese Resp: Effort & Inspection: normal respiratory effort, able to speak in complete sentences, no respiratory distress and no use of accessory muscles Cardio: Rate: regular rate GI: Inspection: No distended Palpation (GI): Soft to palpation Neuro: General: CN's II-XI intact bilaterally Objective Data Active Medications Acetaminophen (Acetaminophen 325 Mg Tablet) 650 mg PO Q6H PRN PRN Reason: Pain, Mild (Pain Scale 1-3) Last Admin: 10/11/23 15:51 Dose: 650 mg Documented By: RAMAN Dextrose (Dextrose 50 % 25 Gm/50 Ml Syringe) 25 gm IVPUSH Q15M PRN; Protocol PRN Reason: per Hypoglycemia Standing Ord. Glucose (Glucose Gel 15 Gm Gel..Gram.) 15 gm PO Q15M PRN; Protocol PRN Reason: per Hypoglycemia Standing Ord. Magnesium Sulfate (Magnesium Sulfate/H2o) 2 gm in 50 mls @ 25 mls/hr IV ONCE ONE Stop: 10/13/23 18:53 Insulin Human Lispro (Insulin Lispro 100 Unit/Ml 3 Ml Vial) 0 unit SUBCUT QIDAS [facility]; Protocol Last Admin: 10/13/23 16:54 Dose: Not Given Documented By: RAMAN Non-Admin Reason: Patient Refused Levothyroxine Sodium (Levothyroxine Sodium 150 Mcg Tablet) 150 mcg PO DAILY@0600 [facility] Last Admin: 10/13/23 05:12 Dose: 150 mcg Documented By: ED Metoprolol Succinate (Metoprolol Succinate Er 50 Mg Tab.Er.24h) 50 mg PO BID [facility]; Protocol Last Admin: 10/13/23 07:33 Dose: 50 mg Documented By: RAMAN Pt Own Medication ( Eluxadoline [Viberzi ] 75 Mg Tablet) 75 mg PO BID [facility] Last Admin: 10/13/23 07:33 Dose: 75 mg Documented By: RAMAN Ondansetron HCl (Ondansetron Hcl 4 Mg/2 Ml Vial) 4 mg IVPUSH Q8H PRN PRN Reason: Nausea and Vomiting Rivaroxaban (Rivaroxaban 20 Mg Tablet) 20 mg PO DAILY@1700 [facility] Last Admin: 10/12/23 17:40 Dose: 20 mg Documented By: RAMAN Sodium Chloride (0.9 % Sodium Chloride Flush 3 Ml Syringe) 3 ml IVFLUSH QSHIFT [facility] Last Admin: 10/13/23 07:35 Dose: 3 ml Documented By: RAMAN Trazodone HCl (Trazodone Hcl 50 Mg Tablet) 150 mg PO BEDTIME [facility] Last Admin: 10/12/23 21:38 Dose: 150 mg Documented By: ED Labs 10/13/23 05:49 10/13/23 05:49 Labs: Laboratory Results - last 24 hr 10/12/23 10/13/23 10/13/23 20:38 05:49 07:16 MCV 93.3 MCH 30.4 MCHC 32.5 RDW 13.0 Plt Count 271 D MPV 8.9 L Immature Gran % (Auto) 0.5 H Neut % (Auto) 40.0 L Lymph % (Auto) 44.8 H [place] % (Auto) 9.5 Eos % (Auto) 4.5 H Baso % (Auto) 0.7 Lymph # (Auto) 2.6 [place] # (Auto) 0.6 Eos # (Auto) 0.3 Baso # (Auto) 0.0 Abs Immat Gran (auto) 0.03 Absolute Neuts (auto) 2.3 Absolute Nucleated RBC 0.000 Nucleated RBC % (auto) 0.0 Anion Gap 14 Estim Creat Clear Calc 100.6 Estimated GFR > 60 POC Glucose 167 H 129 H Fasting Glucose 130 H Calcium 8.9 D Magnesium 1.6 Total Bilirubin 0.4 AST 29 ALT 12 Alkaline Phosphatase 79 Total Protein 6.5 Albumin 2.8 L 10/13/23 10/13/23 11:01 16:10 MCV MCH MCHC RDW Plt Count MPV Immature Gran % (Auto) Neut % (Auto) Lymph % (Auto) [place] % (Auto) Eos % (Auto) Baso % (Auto) Lymph # (Auto) [place] # (Auto) Eos # (Auto) Baso # (Auto) Abs Immat Gran (auto) Absolute Neuts (auto) Absolute Nucleated RBC Nucleated RBC % (auto) Anion Gap Estim Creat Clear Calc Estimated GFR POC Glucose 158 H 153 H Fasting Glucose Calcium Magnesium Total Bilirubin AST ALT Alkaline Phosphatase Total Protein Albumin Assessment and Plan (1) Recurrent falls: Status: Acute Plan 68 year old women PMH HTN, paroxysmal afib, bipolar, cdif colonizer, IBS, DM, hypothyroid, presented with presyncope and weakness. Recent discharge 10/07/2023 treated for C diff colonization and sepsis secondary to UTI. Patient returned after a presyncopal episode while sitting on the toilet and weakness. Bipolar disorder Discussed case with psych provider, symptoms of tremors, weakness, may be related to Medications, specifically depakote Depakote place on hold. plan for outpatient follow up with psychiatrist Trazadone dose decreased from 225mg to 150mg at bedtime Paroxysmal afib with rvr HR improved metoprolol increased to 50 mg twice Daily xarelto for AC Presyncope. Unsure there was actual loss of consciousness no arrhythmias noted on Monitor electrolytes Echocardiogram>normal EF Stable blood pressure neuro consult> no significant findings, take safety precautions when ambulating to avoid falls, chronic atrophy Generalized malaise and encephalopathy Decline over the last year, contributes this to diarrhea episodes but no diarrhea during this admission Labs within normal limits Physical therapy rec>home with PT blood cultures neg Supportive care psych consult for medications managament> stop depakote for now, decrease trazadone to 150 mg at bedtime Diarrhea History of C diff colonization in the past Had recent colonoscopy and endoscopy with no significant finding Monitor for any electrolyte abnormalities no diarrhea noted during this admission Diabetes mellitus 2 A1C of 6.5, diet controlled diabetic diet follow POCs HTN toprol Hypothyroid synthroid DVT prophylaxis - xarelto full code attending - dr. Galdamez Requires ongoing inpatient stay for telemetry monitoring, safe disposition Quality Stroke Does the patient have a stroke diagnosis?: No VTE Prior VTE?: No VTE Risk Level:: Medical - moderate - high VTE Device Contraindication: Treatment Not Indicated VTE Drug Contraindication: N/A - Med Ordered
[2023-10-13] MEDS: Rivaroxaban 20 MG TABLET PO (17:05)
[2023-10-13] MEDS: Magnesium Sulfate/H2O 2 GM/50 ML PIGGYBACK IV (17:05)
[2023-10-13 20:10] LABS: Glucose, Whole Blood 171 mg/dL (60-115)
[2023-10-13] MEDS: traZODone HCL 50 MG TABLET 150 MG PO (20:55)
[2023-10-13] MEDS: Insulin Lispro 100 UNIT/ML 3 ML VIAL SUBCUT (20:55)
[2023-10-14] MEDS: 0.9 % Sodium Chloride Flush 3 ML SYRINGE IVFLUSH ×2 (00:36→08:13)
[2023-10-14 03:26] VITALS: BP 129/60; PULSE 82; RESP 17; TEMP 36.6; O2SAT 94
[2023-10-14] MEDS: Levothyroxine Sodium 150 MCG TABLET PO (05:53)
[2023-10-14 07:30] VITALS: BP 124/82; PULSE 96; RESP 20; TEMP 36.3; O2SAT 94
[2023-10-14 07:50] LABS: Glucose, Whole Blood 128 mg/dL (60-115)
[2023-10-14] MEDS: Metoprolol Succinate ER 50 MG TAB.ER.24H PO (08:12)
[2023-10-14 09:50] VITALS: BP 124/82; PULSE 96; O2SAT 94
--- NOTE | 2023-10-14 09:58 | PM.DS ---
DS: Providers Provider Date of Service: 10/14/23 Date of admission: 10/08/23 16:37 Date of discharge: 10/14/23 Primary care physician: Adithya Gutierrez MD Consults: 10/08/23 16:40 Consult to Gastroenterology Routine Consulting Provider: Danny Quintana Reason for consultation: diarrhea 10/09/23 13:36 Consult to Neurology Routine Consulting Provider: [facility] Reason for consultation: encehalopathy, pre syncope, weakness 10/09/23 15:27 Consult to Psychiatry Routine Consulting Provider: Psych Covering Reason for consultation: possible antipsychotic med change Attending physician on discharge: Panchito Galdamez Discharging clinician: Lora Garrison DS: Diagnosis Discharge Diagnosis (1) Recurrent falls: Status: Acute (2) Pre-syncope: Status: Acute DS: Summary Hospital Course Hospital Course: From H&P on day of admission 68-year-old woman presented to the ER with presyncope. According to her , she was sitting on the toileting and seemed like she started snoring and seemed very weak. She was just discharged from [facility] on 10/07/2023 and at that time was treated for C diff colonization. She had an EGD and colonoscopy which showed gastritis and 2 polyps but no evidence of IBD. During the hospitalization she had not had any significant diarrhea, her viabrezy was continued and her Xarelto has been on hold due to restart on 10/10/2023. She was also treated for sepsis and acute metabolic encephalopathy secondary to UTI, completed a course of cefepime, flu, COVID, RSV and chest x-ray were negative at that time. Asthma reports that it seems like she is declining over the last year. In the ED, Labs drawn were all within acceptable limits, UA pending, chest x-ray negative for consolidation or effusion, no fever or leukocytosis noted, she was noted to be hypoxic with oxygen saturation of 88% on room air, she was placed on 2 L and did come up to 98%. She received a L of IV fluid in the ER. She will be admitted for further management and treatment of presyncope and hypoxia. Bipolar disorder Discussed case with psych provider, symptoms of tremors, weakness, may be related to Medications, specifically depakote. Depakote place on hold. plan for outpatient follow up with psychiatrist. Trazadone dose decreased from 225mg to 150mg at bedtime. Paroxysmal afib with rvr. HR rate was running in the high 90s to low 100s so her dose of metoprolol was increased. Presyncope Unclear if there was actual loss of consciousness. Occurred while on the commode, likely vasovagal. no arrhythmias noted on telemetry. Echocardiogram obtained showed presevered EF and no significant valvular changes. Stable blood pressure. She was seen by neurology, some cerebellar atrophy noted, likely congenital - no other significant findings, recommended to take safety precautions when ambulating to avoid falls/use assistive device. Medication changes as above. No infectious process was identified. Diarrhea History of C diff colonization in the past. Had recent colonoscopy and endoscopy with no significant finding. no diarrhea noted during this admission and stool Time Attestation Discharge coordination time: Greater than 30 minutes Quality: Safe Use of Opioids Does Pt have an Active Cancer Diagnosis on the Problem List?: No Quality: Stroke Does the patient have a stroke diagnosis?: No Physical Exam Vital Signs: Vital Signs: Last Vital Signs Temp 97.4 F 10/14/23 07:30 Pulse 96 10/14/23 07:30 Resp 20 10/14/23 07:30 BP 124/82 10/14/23 07:30 Pulse Ox 94 10/14/23 07:30 O2 Del Method Room Air 10/14/23 07:30 O2 Flow Rate 2 10/09/23 07:57 BMI result Body Mass Index 43.6 Const: General: cooperative, comfortable, alert and awake Nutritional Appearance: obese Orientation/consciousness: patient oriented x3 Resp: Effort & Inspection: normal respiratory effort, able to speak in complete sentences, no respiratory distress and no use of accessory muscles Cardio: Rate: regular rate GI: Inspection: No distended Palpation (GI): Soft to palpation and nontender Neuro: General: patient oriented x3, moves all extremities and CN's II-XI intact bilaterally DS: Data Data Completed and Pending Completed studies during hospitalization [Text1]: Procedures Control Bleeding in Gastrointestinal Tract, Via Natural or Artificial Opening Endoscopic (09/30/23) Excision of Ascending Colon, Via Natural or Artificial Opening Endoscopic, Diagnostic (09/30/23) Excision of Descending Colon, Via Natural or Artificial Opening Endoscopic, Diagnostic (09/30/23) Excision of Duodenum, Via Natural or Artificial Opening Endoscopic, Diagnostic (09/30/23) Excision of Ileum, Via Natural or Artificial Opening Endoscopic, Diagnostic (09/30/23) Excision of Sigmoid Colon, Via Natural or Artificial Opening Endoscopic, Diagnostic (09/30/23) Excision of Stomach, Pylorus, Via Natural or Artificial Opening Endoscopic, Diagnostic (09/30/23) Excision of Transverse Colon, Via Natural or Artificial Opening Endoscopic, Diagnostic (09/30/23) Labs on day of discharge: Laboratory Results - last 24 hr 10/13/23 10/13/23 10/13/23 05:49 11:01 16:10 POC Glucose 158 H 153 H Magnesium 1.6 10/13/23 10/14/23 20:01 07:33 POC Glucose 171 H 128 H Magnesium Discharge Plan Discharge Anticipated Discharge Date/Time: 10/13/23 14:51 Patient Disposition: Home Health Service Discharge Diagnosis: near syncope/syncope Referrals: Fahe[facility] Hanks [Outside] - 3-5 Days ([facility]) [facility] [Outside] - 1 Day ([facility]) Adithya Gutierrez MD [Primary Care Provider] - 1 Week Discharge Medications: New trazodone 50 mg Tablet 150 mg PO BEDTIME 30 Days Qty: 90 0RF metoprolol succinate 50 mg Tablet Extended Release 24 Hr 50 mg PO BID 30 Days Qty: 60 0RF Protocol: Hold for SBP/HR < HOLD for SBP < : 90 HOLD for HR < : 60 Continued levothyroxine 150 mcg tablet 150 mcg PO DAILY 90 Days Qty: 90 1RF Xarelto 20 mg tablet 20 mg PO QPM Qty: 90 0RF Hold Instructions: Resume on 10/10/2023 Viberzi 75 mg tablet 75 mg PO BID Discontinued metoprolol succinate 50 mg tablet extended release 24 hr 50 mg PO BEDTIME trazodone 150 mg tablet 225 mg PO BEDTIME divalproex 250 mg tablet,delayed release (DR/EC) 250 mg PO BEDTIME divalproex 500 mg tablet,delayed release (DR/EC) 500 mg PO BID Rx Instructions: 500 in the morning and 750 at night Discharge Orders: Discharge Order (Routine); Ordered 10/14/23 Ordered By: Lora Garrison Activity on Discharge: As tolerated Stand Alone Forms: Patient Portal Discharge page Care Plan Goals: see below Health Concerns: pre-syncope/syncope weakness Plan of Treatment: atrial fibrillation - HR was a little elevated, dose of metoprolol was increased take 50 mg twice daily no significant diarrhea during admission brain imaging showing cerebellar atrophy which puts you at risk for falls, take precautions by using assistive device or assistance from a person before ambulating don't take depakote until you follow up with your psychiatrist dose of trazodone has been decreased call to schedule follow up with PCP Assessment: see discharge summary Discharge Date/Time: 10/14/23 11:32
--- NOTE | 2023-10-14 10:31 | MHC.CM.PN ---
EMR REVIEWED. PER MD ROUNDS MEDICALLY CLEARED FOR DC HOME WITH , [facility]. [facility]. DC SUMMARY SENT TO [facility]. BLS TRANSPORTATION BOOKED FOR 11AM. IMM WAS DELIVERED 10/13.
--- NOTE | 2023-10-14 11:41 | W.MHC.F2F ---
Service Date Service Date: 10/14/23 Encounter Date of encounter: 10/14/23 Reasons for Services Signs and symptoms assessed: needs [facility] for close monitoring of vital signs; HR and blood pressure; metoprolol dose was increased Reason for [facility]: medication management Reason for physical therapy: home safety and mobility, therapeutic exercises and gait/transfer training MD Overseeing Care: Adithya Santiagoeem Homebound: Leaving the home is medically contraindicated at this time without the asist of a device and/or another person due th the listed conditions above and below. Reason homebound: unsteady gait / fall risk, poor balance / fall risk and weakness related to hospital stay Certification: Based on the above findings, I certify that this patient is confined to the home and needs intermittent [facility] care, physical therapy and/or speech therapy, or continues to need occupational therapy. The patient is under my care, and I have initiated the establishment of the plan of care. The patient will be followed by a physician who will periodically review the plan of care. Time Spent With Patient Time: Total time managing care of this patient today ____ minutes.
[2023-10-17 23:13] LABS: Calprotectin, Fecal 147 mcg/g
[2023-10-18 19:48] LABS: Pancreatic Elastase-1 >500 mcg/g
== END 2023-10-14 11:32 | disposition home health service (06) | DRG 372 ==
LOC: HO.ED 15:19 → HO.EDOVER 16:42 → HO.S3 22:12
PROVIDERS: Hospitalist; Internal Medicine Gastroenterology; Admitting Provider Nurse Practitioner Acute Care; Emergency Provider Emergency Medicine Emergency Medical Services; PCP Internal Medicine; Visit Provider Physician Assistant Medical
DX: A04.8 Other specified bacterial intestinal infections (principal); G93.40 Encephalopathy, unspecified; Z68.41 Body mass index [BMI] 40.0-44.9, adult; I10 Essential (primary) hypertension; I48.0 Paroxysmal atrial fibrillation; R55 Syncope and collapse; E03.9 Hypothyroidism, unspecified; F31.9 Bipolar disorder, unspecified; E66.09 Other obesity due to excess calories; E11.9 Type 2 diabetes mellitus without complications; Z22.1 Carrier of other intestinal infectious diseases; Z87.891 Personal history of nicotine dependence; Z79.01 Long term (current) use of anticoagulants; Z79.890 Hormone replacement therapy; Z79.899 Other long term (current) drug therapy
CPT/HCPCS: 0241U; 36415; 71045; 80053; 82248; 82656; 82803; 82947; 83036; 83735; 83880; 83993; 84484; 85025; 85027; 87040; 87633; 93005; 93306; 97110; 97162; 97530; 99285; J3475; Q9957

== ENCOUNTER → 2023-10-08 11:56 | Outpatient (BNV) | payer MEDICARE, BC, SELFPAY | PROVIDERS: Admitting Provider Nurse Practitioner Acute Care; Emergency Provider Emergency Medicine Emergency Medical Services; PCP Internal Medicine; Visit Provider Internal Medicine | DX: I48.91 Unspecified atrial fibrillation (principal) | CPT/HCPCS: 93010 ==

== ENCOUNTER 2023-10-08 16:37 | Outpatient (BNV) | payer MEDICARE, BC, SELFPAY | END 2023-10-11 09:09 | PROVIDERS: Admitting Provider Nurse Practitioner Acute Care; Emergency Provider Emergency Medicine Emergency Medical Services; PCP Internal Medicine; Visit Provider Internal Medicine Cardiovascular Disease | DX: I48.91 Unspecified atrial fibrillation (principal); R94.31 Abnormal electrocardiogram [ECG] [EKG] | CPT/HCPCS: 93010 ==

== ENCOUNTER 2023-10-08 16:37 | Outpatient (BNV) | payer MEDICARE, BC, SELFPAY | END 2023-10-10 07:00 | PROVIDERS: Admitting Provider Nurse Practitioner Acute Care; Emergency Provider Emergency Medicine Emergency Medical Services; PCP Internal Medicine; Visit Provider Internal Medicine Cardiovascular Disease | DX: I51.9 Heart disease, unspecified (principal); R94.31 Abnormal electrocardiogram [ECG] [EKG] | CPT/HCPCS: 93306 ==

== ENCOUNTER → 2023-10-08 16:37 | Outpatient (BNV) | payer MEDICARE, BC, SELFPAY | PROVIDERS: Admitting Provider Nurse Practitioner Acute Care; Emergency Provider Emergency Medicine Emergency Medical Services; PCP Internal Medicine; Visit Provider Social Worker | DX: F31.74 Bipolar disorder, in full remission, most recent episode manic (principal) | CPT/HCPCS: 99222; 99231 ==

== ENCOUNTER → 2023-10-08 16:37 | Outpatient (BNV) | payer MEDICARE, BC, SELFPAY | PROVIDERS: Admitting Provider Nurse Practitioner Acute Care; Emergency Provider Emergency Medicine Emergency Medical Services; PCP Internal Medicine; Visit Provider Nurse Practitioner Acute Care | DX: R55 Syncope and collapse (principal); R29.6 Repeated falls | CPT/HCPCS: 99223; 99232; 99233; 99239; G0180 ==

== ENCOUNTER 2023-12-05 12:20 | Outpatient (AMB) | payer MEDICARE, BC, OTHER, SELFPAY ==
[2023-12-05 12:33] VITALS: BP 120/68; PULSE 98; BMI 39.8
--- NOTE | 2023-12-05 12:33 | A.OFFVIS_ITS ---
Intake Vital Signs 12/05/23 12:33 Height 5 ft 3 in Weight 224 lb 13.944 oz BMI 39.8 BP 120/68 Blood Pressure Location Lt brachial Position Sitting Pulse 98 Intake Visit Reasons: 3 month fu Intake Note: 3 month follow-up feeling ok Psychiatric Security Nurse Required: No Frame And Scrap Crusher: Frame And Scrap Crusher Present Accompanied by: Spouse Allergies aspirin [ASA] Allergy (Intermediate, Verified 10/08/23 11:55) GI PAIN, upset stomach hazelnut Allergy (Unknown, Verified 10/08/23 11:55) Unknown shellfish derived Allergy (Unknown, Verified 10/08/23 11:55) Unknown gluten Allergy (Verified 10/08/23 11:55) Unknown sesame seeds Allergy (Unknown, Uncoded 10/08/23 11:55) Unknown Medication List - Last Reconciled 12/05/23 by Kevin Mendez MD eluxadoline (Viberzi) 75 mg PO BID levothyroxine 150 mcg PO DAILY 90 days metoprolol succinate ER 50 mg See Protocol PO BID 30 days rivaroxaban (Xarelto) 20 mg PO QPM trazodone 150 mg (3 x 50 mg) PO BEDTIME 30 days HPI HPI Comments History of Present Illness Details Bianca comes for follow-up. In the last 6 months she has had multiple hospitalizations related to noncardiac issues. She is remained in persistent atrial fibrillation for a long time now. She has no new symptoms. Denies any prolonged palpitation irregular heartbeat. We decided to pursue rate control approach at this point time given difficulty in pursuing rhythm control approach and failure to do so including with amiodarone therapy. She is on oral anticoagulation therapy with Xarelto which she is tolerating well. [facility] Medical History (Updated 12/05/23 @ 12:55 by Kevin Mendez MD) Chronic atrial fibrillation Paroxysmal atrial fibrillation C. difficile colitis Irritable bowel syndrome with diarrhea Morbid obesity due to excess calories Non-insulin dependent type 2 diabetes mellitus Weakness Leg edema Bipolar 1 disorder Vertigo PTSD (post-traumatic stress disorder) History of cardioversion Arthritis Hypothyroidism History of wheezing Diabetes mellitus HTN (hypertension) LBBB (left bundle branch block) PAF (paroxysmal atrial fibrillation) Surgical History History of cardiac radiofrequency ablation History of eye surgery Hx of section Hx of colonoscopy Hx of cholecystectomy Hx of arthroscopy of right knee Family History Father No problems noted. Mother No problems noted. Other Mental health disorder Substance use disorder Social History Household Members: Spouse and Children Household Members Other:: daughter + Housing: House Do you presently have visiting nurse or other home services: Yes Alcohol intake: former Comment: patient fll asleep Patient Tobacco Use Status: Former Tobacco user Quit Date: 1989 e-Cigarette/Vaping Use: Never Used Second Hand Smoke Exposure: No Advance Directives Date on File: 06/29/23 service: No Current occupational status: employed Sexual orientation: Straight/Heterosexual Cognitive needs: No Hearing needs: No Vision needs: Yes Review of Systems Const Denies chills, Denies fatigue, Denies fever(s), Denies frequent falls, Denies weakness, Denies weight gain and Denies weight loss ENT Denies dizziness Card Denies chest pain, Denies leg edema, Denies lightheadedness, Denies palpitations, Denies dyspnea, Denies dyspnea on exertion, Denies orthopnea and Denies other (loss of consciousness) Resp Denies cough, Denies dyspnea and Denies dyspnea on exertion GI Denies hematochezia and Denies change in stool character Musc Denies abnormal gait, Denies muscle weakness, Denies numbness, Denies radiating pain into limb and Denies tingling Neuro Denies abnormal gait, Denies dizziness, Denies frequent falls, Denies numbness, Denies tingling and Denies weakness Endo Denies fatigue and Denies palpitations Physical Exam Vital Signs: Last Vital Signs Pulse 98 12/05/23 12:33 BP 120/68 12/05/23 12:33 BMI result Body Mass Index 39.8 Const Other: Morbidly obese sitting in wheelchair General: cooperative, comfortable and no acute distress Orientation/consciousness: patient oriented x3 Neck Neck: Yes normal visual inspection Resp Effort & Inspection: normal respiratory effort Auscultation: clear to auscultation bilaterally, no crackles, no rales, no rhonchi and no wheezes Cardio Jugular venous distension: no JVD Rhythm: abnormal rhythm irregularly irregular Heart sounds: S1 normal heart sound present, S2 normal heart sound present, no gallops, no murmurs and no rubs Neuro General: patient oriented x3 Extrem General: Yes normal to inspection, No no pedal edema and No calf tenderness Psych Appearance: grossly normal Mental Status: mental status grossly normal Speech and movement: Normal speech and movement present Assessment & Plan Assessment & Plan (1) Chronic atrial fibrillation: Code(s): I48.20 - Chronic atrial fibrillation, unspecified Plan: Chronic rate control atrial fibrillation higher dose of metoprolol. No symptoms at this point time. She has failed rhythm control approach including with amiodarone therapy. Has no new cardiac symptoms at this point time. Likelihood of maintaining long-term rhythm is extremely low. Will continue pursue rate control approach with metoprolol. Advised the to monitor her heart rate on a regular basis. Continue full oral anticoagulation, currently on Xarelto. Semi annual renal function test should be pursued. (2) HTN (hypertension): Comment: As above Code(s): I10 - Essential (primary) hypertension Qualifiers: Hypertension type: primary hypertension Qualified Code(s): I10 - Essential (primary) hypertension Plan: Hypertension which is currently well optimized advised to monitor blood pressure at home maintain a log. Goal blood pressure less than 130/84. Low-salt diet was discussed. Signs and symptoms heart failure were discussed. Will follow up in the clinic in 6 months time, sooner p.r.n.. Thank you for allowing me to partake in her care Medications: Refilled rivaroxaban (Xarelto) 20 mg PO QPM 90 tabs 0RF I48.0 - Paroxysmal atrial fibrillation Coding Level of Care Code Est Pt Level 4 (19762) Diagnoses Chronic atrial fibrillation I48.20 Primary hypertension I10 Hypertension type: primary hypertension
== END 2023-12-05 12:58 | disposition home or self-care (01) ==
PROVIDERS: PCP Internal Medicine; Visit Provider Internal Medicine Cardiovascular Disease
DX: I48.20 Chronic atrial fibrillation, unspecified (principal); I10 Essential (primary) hypertension
CPT/HCPCS: 99214

== ENCOUNTER → 2023-12-05 12:20 | Outpatient (BNVA) | payer MEDICARE, OTHER, BC, SELFPAY | PROVIDERS: PCP Internal Medicine; Visit Provider Internal Medicine Cardiovascular Disease | DX: I48.20 Chronic atrial fibrillation, unspecified (principal); I10 Essential (primary) hypertension; Z79.01 Long term (current) use of anticoagulants; Z79.899 Other long term (current) drug therapy | CPT/HCPCS: 99212 ==

== ENCOUNTER 2023-12-16 13:03 | Outpatient (AMB) | payer MEDICARE, OTHER, SELFPAY ==
[2023-12-16 13:12] VITALS: BP 106/75; PULSE 85
--- NOTE | 2023-12-16 13:12 | MHC.OFFVIS ---
Intake Vital Signs 12/16/23 13:12 Height 5 ft 3 in BMI Reason not done Patient refused/unable BP 106/75 Blood Pressure Location Lt brachial Position Sitting Pulse 85 Intake Visit Reasons: Hospital F/U s/p EGD & [place] Intake Note: Bianca returns to in office today in follow up s/p EGD and colonoscopy. CC: Patient was admitted to [facility] on 09/30/23 with diarrhea, fever, weakness, and difficulty ambulating. In ED it was noted patient was septic, with fever 102.3, and afib with rvr 146.?Ct abd showed possible cystitis, but they were unable to obtain UA. patient was lethargic. On 10/05/23 she underwent EGD and colonoscopy with Dr. Feldman. Patient states that she is doing great and her states that they finally figured out what was causing the diarrhea. Per it was the Depakote and once patient stopped it she has been doing great, feeling better, and even started taking physical therapy and walking better. Senior Human Resources Representative Required: No Accompanied by: Spouse Allergies aspirin [ASA] Allergy (Intermediate, Verified 12/16/23 13:27) GI PAIN, upset stomach hazelnut Allergy (Unknown, Verified 12/16/23 13:27) Unknown shellfish derived Allergy (Unknown, Verified 12/16/23 13:27) Unknown gluten Allergy (Verified 12/16/23 13:27) Unknown sesame seeds Allergy (Unknown, Uncoded 10/08/23 11:55) Unknown HPI Hospital F/U s/p EGD & [place] HPI Details Assessment & Plan (1) Irritable bowel syndrome with diarrhea: Code(s): K58.0 - Irritable bowel syndrome with diarrhea Plan: She was in rehab for 40 days for deconditioning and at attempt to walk better - but had troubles with getting the right diet re: her Celiac. She had a variable response to the Viberzi at 75 mg if they gave it to her twice a day sometime she would become constipated and then her would withhold 1 dose and she would move her bowels. However if they only gave her 1 today consistently this was not enough to keep the diarrhea at [place]. I think will try to split the difference and upper to the 100 mg dose and start with once a day dosing. We will continue to tied titrate her treatment to get it just right for optimal bowel function and to accommodate her limited mobility. Return office visit in 3 weeks (2) Rectal incontinence: Code(s): R15.9 - Full incontinence of feces (3) Celiac disease: Code(s): K90.0 - Celiac disease REVIEW OF HOSPITAL NOTES Plan 68YF with HTN, paroxysmal afib, bipolar, cdif colonizer, IBS, ?DM, hypothyroid admitted to [facility] on 09/30/23 with a change in MS, acute on chronic diarrhea, fever. Patient is being followed in the GI clinic by Deidra Stubbs NP for chronic diarrhea, RECOMMENDATIONS: Pt advised to schedule a colonoscopy for further evaluation. Clear liquid diet and Golytely prep on 10/04/23 and colonoscopy will be scheduled on 10/05/23 EGD/COLONOSCOPY Findings: Larynx: Normal Esophagus: GE junction at 38 cms. No esophagitis or Quiñonez's. Stomach: Moderate diffuse gastric erythema with prominent gastric folds in the gastric body along the greater curvature - biopsied. Antral biopsies were obtained to check for H pylori Grade 2 flap valve on retroflexed examination of the cardia. Duodenum: Normal bulb and descending duodenum. Random biopsies were obtained from 3rd part of the duodenum to check for celiac sprue Intervention: Biopsies as noted above Findings: Terminal Ileum: Distal 7-8 cms was examined and appeared normal. Biopsies were obtained to check for Crohn's disease Cecum: Normal Ascending Colon: Friable mucosa without ulcers - random biopsies were obtained from right and left colon Transverse Colon: Friable mucosa without ulcers - random biopsies were obtained from right and left colon Descending Colon: A 2-3 mm sessile polyp - removed with a cold biopsy Friable mucosa without ulcers - random biopsies were obtained from right and left colon Sigmoid Colon: A 10-12 mm sessile polyp at 20 cms - removed with a hot snare. Polypectomy site was closed with 1 hemoclip. Mild diverticulosis Rectum: Normal Ano-rectum: Small internal hemorrhoids Colon preparation: Excellent Impression and Post Procedure Diagnosis: Endoscopy Findings: STOMACH: Moderate diffuse gastric erythema with prominent gastric folds in the gastric body along the greater curvature - biopsied. Antral biopsies were obtained to check for H pylori DUODENUM: Normal - biopsied to check for celiac sprue Colonoscopy Findings: One small and one medium sized polyps removed Friable mucosa without ulcers throughout the colon - random biopsies were obtained from right and left colon to check for microscopic colitis Mild diverticulosis seen in the sigmoid colon Small hemorrhoids on retroflexed exam. Plan: I will contact the patient with pathology results Resume Xarelto on 10/10/23. Patient has an appointment on 10/11/23 in the GI Clinic with Deidra Stubbs NP. Repeat Colonoscopy interval based on path results - in 3-5 years if polyps are adenomatous and 10 years if polyps are hyperplastic. Above findings were reviewed with the patient and her daughter by phone. BIOPSIES SHOWED: A. Small bowel, biopsy: Small intestinal mucosa within normal limits; negative for celiac disease. B. Stomach, antrum, biopsy: Antral-type mucosa with moderate chronic, focally active, inflammation; no Helicobacter organisms seen. C. Stomach, body, biopsy: - Oxyntic mucosa with moderate chronic, focally active, inflammation. - Positive for H pylori. D. Terminal ileum, biopsy: Small intestinal mucosa within normal limits; negative for inflammatory bowel disease. E. Colon, right, biopsy: Colonic mucosa within normal limits; negative for microscopic colitis. F. Colon, transverse, polypectomy: Colonic mucosa with mild surface hyperplastic changes. G. Colon, left, biopsy: Colonic mucosa within normal limits; negative for microscopic colitis. H. Colon, sigmoid, polypectomy: Tubular adenoma; negative for high-grade dysplasia or carcinoma Results reviewed with the patient and her during hospitalization at [facility]. Patient was advised to continue with Eluxadoline (Viberzi) 75 mg twice a day and holds one dose if she does not have a BM for several hours. reports diarrhea episodes of bowel accident have improved with improvement in stool consistency She still gets intermittent episodes of diarrhea without clear precipitating factors. DISCHARGE SUMMARY Hospital Course Hospital Course: From H&P on day of admission 68-year-old woman presented to the ER with presyncope. According to her , she was sitting on the toileting and seemed like she started snoring and seemed very weak. She was just discharged from [facility] on 10/07/2023 and at that time was treated for C diff colonization. She had an EGD and colonoscopy which showed gastritis and 2 polyps but no evidence of IBD. During the hospitalization she had not had any significant diarrhea, her viabrezy was continued and her Xarelto has been on hold due to restart on 10/10/2023. She was also treated for sepsis and acute metabolic encephalopathy secondary to UTI, completed a course of cefepime, flu, COVID, RSV and chest x-ray were negative at that time. Asthma reports that it seems like she is declining over the last year. In the ED, Labs drawn were all within acceptable limits, UA pending, chest x-ray negative for consolidation or effusion, no fever or leukocytosis noted, she was noted to be hypoxic with oxygen saturation of 88% on room air, she was placed on 2 L and did come up to 98%. She received a L of IV fluid in the ER. She will be admitted for further management and treatment of presyncope and hypoxia. Bipolar disorder Discussed case with psych provider, symptoms of tremors, weakness, may be related to Medications, specifically depakote. Depakote place on hold. plan for outpatient follow up with psychiatrist. Trazadone dose decreased from 225mg to 150mg at bedtime. Paroxysmal afib with rvr. HR rate was running in the high 90s to low 100s so her dose of metoprolol was increased. Presyncope Unclear if there was actual loss of consciousness. Occurred while on the commode, likely vasovagal. no arrhythmias noted on telemetry. Echocardiogram obtained showed presevered EF and no significant valvular changes. Stable blood pressure. She was seen by neurology, some cerebellar atrophy noted, likely congenital - no other significant findings, recommended to take safety precautions when ambulating to avoid falls/use assistive device. Medication changes as above. No infectious process was identified. Diarrhea History of C diff colonization in the past. Had recent colonoscopy and endoscopy with no significant finding. no diarrhea noted during this admission and stool TODAY'S VISIT She is here today with her who is supportive. After all of this, the root cause of her GI problems was her depakote! Now, with the Viberzi, she is having daily, formed stools. She is now doing well on her Viberzi. The only problem was with eating scallops because she is allergic to shellfish and they were not aware that scallops are shellfish. She is off of all mood drugs except Trazodone, and she is sleeping a lot - but also is going to PT which is tiring. She is getting stronger and now can actually get up out of the chair. She has lost 20 lbs, but she is now eating again despite trying to work around her Celiac disease. She has been eating sourdough bread in am w/o problem related to her celiac REFILL VIBERZI ROV 6 mos PFS Medical History Irritable bowel syndrome with diarrhea Chronic atrial fibrillation Paroxysmal atrial fibrillation C. difficile colitis Morbid obesity due to excess calories Non-insulin dependent type 2 diabetes mellitus Weakness Leg edema Bipolar 1 disorder Vertigo PTSD (post-traumatic stress disorder) History of cardioversion Arthritis Hypothyroidism History of wheezing Diabetes mellitus HTN (hypertension) LBBB (left bundle branch block) PAF (paroxysmal atrial fibrillation) Surgical History History of cardiac radiofrequency ablation History of eye surgery Hx of section Hx of colonoscopy Hx of cholecystectomy Hx of arthroscopy of right knee Family History Father No problems noted. Mother No problems noted. Other Mental health disorder Substance use disorder Social History Household Members: Spouse and Children Household Members Other:: daughter + Housing: House Do you presently have visiting nurse or other home services: Yes Alcohol intake: former Comment: patient fll asleep Patient Tobacco Use Status: Former Tobacco user Quit Date: 1989 e-Cigarette/Vaping Use: Never Used Second Hand Smoke Exposure: No Advance Directives Date on File: 06/29/23 service: No Current occupational status: employed Sexual orientation: Straight/Heterosexual Cognitive needs: No Hearing needs: No Vision needs: Yes Review of Systems Const Denies fatigue, Denies fever(s), Denies night sweats, Denies poor appetite and Reports weight loss ENT Reports Normal hearing present, Denies dental pain, Denies dysphagia, Denies hearing loss, Denies mouth pain, Denies odynophagia, Denies throat swelling, Denies tongue swelling and Reports other (Dentition adequate) Card Reports no additional complaints Resp Reports no additional complaints GI Details: Denies abdominal pain, Denies melena, Denies bloating, Denies hematochezia, Denies constipation, Denies GI cramping, Denies dysphagia, Denies excessive flatus, Denies early satiety, Denies heartburn, Denies diarrhea, Reports loose stools, Denies nausea, Denies odynophagia, Denies vomiting and Denies hematemesis Musc Reports myalgias and Reports muscle weakness Skin/Breast Denies pruritus, Denies lesions, Denies rash and Denies jaundice Neuro Reports Normal hearing present and Denies Abnormal speech present Endo Denies fatigue Aller/Immun Denies throat swelling and Denies tongue swelling Physical Exam Vital Signs: Last Vital Signs Pulse 85 12/16/23 13:12 BP 106/75 12/16/23 13:12 Const General: cooperative, no acute distress, well developed and well groomed Nutritional Appearance: well nourished and obese morbidly obese Orientation/consciousness: oriented to person, oriented to place and oriented to time Limitations: No language barrier and wheelchair HEENT Head: Yes normocephalic and Yes atraumatic Eyes General: appearance normal, both eyes and all related structures Pupils: Equal, round and reactive pupils present Neck Neck: Yes normal visual inspection and Yes no lymphadenopathy Thyroid: Thyroid normal Resp Effort & Inspection: normal respiratory effort and able to speak in complete sentences Auscultation: clear to auscultation bilaterally Cardio Rate: regular rate Rhythm: regular rhythm Heart sounds: Normal, physiologic split S2 sound present Peripheral pulses: radial pulses present and posterior tibial pulses present GI Inspection: No distended, Yes Abdominal panniculus present and Yes obesity Palpation (GI): Soft to palpation, nontender, no guarding, not rigid and No hepatosplenomegaly present Percussion: Yes normal to percussion Auscultation: normal bowel sounds Rectal Exam - Female: deferred Skin General skin exam: no rashes or lesions noted, turgor normal, skin not dry, no jaundice, No spider nevi and no striae Rashes: no rashes Nails: normal Neuro General: oriented to person, oriented to place and oriented to time Cranial nerves: Yes Equal, round and reactive pupils present and Yes Normal hearing present Speech: No Abnormal speech present Extrem General: Yes normal to inspection, No clubbing, No cyanosis and No edema Psych Appearance: grossly normal and well kempt Mental Status: mental status grossly normal Speech and movement: Normal speech and movement present Affect: normal affect Attitude: cooperative Thought process: Normal thought process present and not confabulating Thought content: Normal thought content present Insight: Limited insight present (Psych) Judgement: Limited judgement present (Psych) Assessment & Plan Assessment & Plan (1) Irritable bowel syndrome with diarrhea: Code(s): K58.0 - Irritable bowel syndrome with diarrhea (2) Pre-syncope: Code(s): R55 - Syncope and collapse (3) Celiac disease: Code(s): K90.0 - Celiac disease (4) Shellfish allergy: Code(s): Z91.013 - Allergy to seafood Plan She is here today with her who is supportive. After all of this, the root cause of her GI problems was her depakote! Now, with the Viberzi, she is having daily, formed stools. She is now doing well on her Viberzi. The only problem was with eating scallops because she is allergic to shellfish and they were not aware that scallops are shellfish. She is off of all mood drugs except Trazodone, and she is sleeping a lot - but also is going to PT which is tiring. She is getting stronger and now can actually get up out of the chair. She has lost 20 lbs, but she is now eating again despite trying to work around her Celiac disease. She has been eating sourdough bread in am w/o problem related to her celiac REFILL VIBERZI ROV 6 mos Coding Level of Care Code Est Pt Level 3 (38995) Diagnoses Irritable bowel syndrome with diarrhea K58.0 Pre-syncope R55 Celiac disease K90.0 Shellfish allergy Z91.013
== END 2023-12-16 14:07 | disposition home or self-care (01) ==
PROVIDERS: PCP Internal Medicine; Visit Provider Nurse Practitioner
DX: K58.0 Irritable bowel syndrome with diarrhea (principal); R55 Syncope and collapse; K90.0 Celiac disease; Z91.013 Allergy to seafood
CPT/HCPCS: 99213

== ENCOUNTER → 2023-12-16 13:03 | Outpatient (BNVA) | payer MEDICARE, BC, SELFPAY | PROVIDERS: PCP Internal Medicine; Visit Provider Nurse Practitioner | DX: K58.0 Irritable bowel syndrome with diarrhea (principal); K90.0 Celiac disease; R55 Syncope and collapse; Z91.013 Allergy to seafood | CPT/HCPCS: 99212 ==

== ENCOUNTER 2024-02-22 13:00 | Outpatient (RCR) | payer MEDICARE, OTHER, BC, SELFPAY ==
[2023-12-07 10:50] VITALS: BP 118/70; PULSE 105; O2SAT 96
--- NOTE | 2023-12-07 14:15 | MHC.PT.EP ---
[facility] [place] Office [place] Office [place] Office [address] Amelia Hernandez [address] [phone] F: [phone] F: [phone] F: [phone] F: [phone] Physical Therapy Plan of Care Date of Evaluation: 12/07/23 Date of Surgery: Diagnosis: LEs WEAKNESS, GAIT DISTURBANCE Assessment: 68 YO FEMALE REF TO PT W A H/O GENERALIZED WEAKNESS S/P MULTIPLE MEDICAL ISSUES, FALLS, AND ER/ HOSPITAL ADMISSIONS OVER THE PAST YEAR- SHE HAS HAD SOME BRIEF BOUTS OF HOME PT AND PRESENTS TODAY TO ADDRESS HER LEs WEAKNESS , FREQUENT FALLS,AND GAIT DISTURBANCE. SHE RESIDES IN A DUPLEX APT W HER VERY SUPPORTIVE SPOUSE, BATHROOMS ON 2ND FLOOR ((+) COMMODE, ROLLATOR, LIFT CHAIR, PETRONA, EXTERIOR RAMP, W/WALKER)-> SHE NOTED SHE HAS NOT BEEN NAVIGATING STAIRS AT HOME. THE Pt HAS TRUNK/ LEs STRENGTH DEFICITS , HS/ CALF TISSUE TIGHTNESS, DECR POSTURAL AWARENESS, STATIC/ DYNAMIC BALANCE DEFICTS, AND ALTERED GAIT MECH. SHE REQUIRES ASSIST WITH ALL ADLs/ DRESSING, HAS SIDE DOOR WORKER FOR SHOWERING- SHE WOULD BENEFIT FROM PT TO ADDRESS THE ABOVE FINDINGS, IMPROVE STRENGTH, AND MAXIMIZE FUNCTIONAL INDEPENDENCE. Frequency and Duration: The patient will be seen 2 x WK x 6 WKS Short Term Goals: *IMPROVE SUSSY LEs FLEXIBILITY-> TERMINAL KNEE EXT SUSSY, WFL ANKLE DF AND PSOAS FLEXIB * INITIATE HEP FOR LEs STRENGTH, FLEXIB *Pt INDEP W SELF CORRECT POSTURE *Pt DEMON INCR LEs ACTIV W SIT <-> STAND TRANSFERS Tube Washer Goals: *Pt DEMON INDEP TRANSFERS , MULTI SURFACES, AND INDEP IN/OOB MECHANICS *Pt AND SPOUSE INDEP W HEP/ STRENGTHENING EXER *Pt DEMON MOD INDEP AMB x 200' W LEAST RESTRICTIVE ASST DEVICE *Pt DEMON EFFICIENT TECHN W STAIR MGMT, 2 RAILS *IMPROVED LEFI , AT EVAL Treatment Plan: Modalities to reduce pain, spasms and effusion. Manual therapy to restore motion and function. Therapeutic exercise to improve strength and flexibility. Neuromuscular re-education for posture and balance. Therapeutic activities to return to functional activities of daily living. Electronically signed by: CHIQUIS BRUSH,PT Please sign and return to therapist. Thank you for your referral.
--- NOTE | 2024-02-22 15:29 | MHC.PT.DC ---
[facility] [place] [facility] [place] [facility] [place] [facility] [address] Amelia Hernandez [address] [phone] F: [phone] F: [phone] F: [phone] F: [phone] Physical Therapy Discharge Report Diagnosis: LEs WEAKNESS, GAIT DISTURBANCE Date of Surgery: Date of Evaluation: 12/07/23 Date of Discharge: 02/22/24 Treatments to Date: 18 Cancellations to Date: 2 No Shows to Date: 0 Discharge Status: Achieved Goals Improved Function Independent with HEP Discharge Summary: JAREN HAS PROGRESSED NICELY IN PT-: SHE AMBULATES WITH A W/WALKER FOR PROLONGED DISTANCES , BUT IS ALSO ABLE W A CANE And EVEN W/O ASST DEVICES- SHE DEMON SAFE TECHN W STAIR NAVIGATION W RAILING AND CS. THE Pt IS INDEP W TRANSFERS AND BED MOB, AND SHE HAS A THOROUGH HEP, WHICH HER ASSISTS HER WITH. WE HAVE DISCUSSED THE IMPORTANCE OF CONT W HER HEP UPON PT DISCHARGE- HER LEFI SCORE IMPROVED FROM 6/50 TO 20/50 AT [facility]. Electronically signed by: CHIQUIS BRUSH,PT Please sign and return to therapist. Thank you for your referral.
== END 2024-02-22 15:30 | disposition home or self-care (01) ==
LOC: HO.PT 13:00
PROVIDERS: PCP Internal Medicine; Visit Provider Internal Medicine
DX: R55 Syncope and collapse (principal); R26.81 Unsteadiness on feet; R53.1 Weakness
CPT/HCPCS: 97110; 97116; 97162; 97530

== ENCOUNTER 2024-02-29 12:54 | Outpatient (AMB) | payer MEDICARE, BC, SELFPAY ==
--- NOTE | 2024-02-29 12:55 | A.OFFPC_ITS ---
Vital Signs 02/29/24 12:56 Height 5 ft 3 in Weight 236 lb BMI 41.8 BP 108/62 Blood Pressure Location Rt brachial Position Sitting Pulse 110 H Pulse Source Pulse Oximeter Pulse Oximetry (%) 98 Oxygen Delivery Method Room Air Intake Visit Reasons: 6 month fu Allergies aspirin [ASA] Allergy (Intermediate, Verified 02/29/24 13:07) GI PAIN, upset stomach hazelnut Allergy (Unknown, Verified 02/29/24 13:07) Unknown shellfish derived Allergy (Unknown, Verified 02/29/24 13:07) Unknown divalproex sodium [From Depakote] Allergy (Verified 02/29/24 13:08) diarrhea, brain fog gluten Allergy (Verified 02/29/24 13:07) Unknown sesame seeds Allergy (Unknown, Uncoded 02/29/24 13:07) Unknown Medication List - Last Reconciled 02/29/24 by Adithya Gutierrez MD eluxadoline (Viberzi) 75 mg PO BID levothyroxine 150 mcg PO DAILY 90 days metoprolol succinate ER 50 mg See Protocol PO BID 30 days rivaroxaban (Xarelto) 20 mg PO QPM trazodone 220 mg PO BEDTIME Tobacco use date assessed: 02/29/24 Fall risk assessment: 1 Fall in past year Last assessed Fall Risk: 02/29/24 Dental Screening Dental Screen Date: 02/29/24 Did you have a dental visit in the last 12 months?: No Did you have a dental problem in the last 6 months where you did not have access to dental care?: No Was dental information given to patient?: Patient declined HPI 6 month fu HPI Details Patient is 68 year female came today for regular follow-up appointment Last time seen was July last year Due for labs Only medication from PCP office is levothyroxine 150 mcg Patient have a history of bilateral dacryocystitis And is in need of Valerio tubes removed 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 Patient is diet-controlled diabetic as well and is in need of hemoglobin A1c. History of bipolar disorder stable [facility] Medical History Irritable bowel syndrome with diarrhea Chronic atrial fibrillation Paroxysmal atrial fibrillation C. difficile colitis Morbid obesity due to excess calories Non-insulin dependent type 2 diabetes mellitus Weakness Leg edema Bipolar 1 disorder Vertigo PTSD (post-traumatic stress disorder) History of cardioversion Arthritis Hypothyroidism History of wheezing Diabetes mellitus HTN (hypertension) LBBB (left bundle branch block) PAF (paroxysmal atrial fibrillation) Surgical History History of cardiac radiofrequency ablation History of eye surgery Hx of section Hx of colonoscopy Hx of cholecystectomy Hx of arthroscopy of right knee Family History Father No problems noted. Mother No problems noted. Other Mental health disorder Substance use disorder Social History Household Members: Spouse and Children Household Members Other:: daughter + Housing: House Do you presently have visiting nurse or other home services: Yes Alcohol intake: former Comment: patient fll asleep Patient Tobacco Use Status: Former Tobacco user Quit Date: 1989 e-Cigarette/Vaping Use: Never Used Second Hand Smoke Exposure: No Advance Directives Date on File: 06/29/23 service: No Current occupational status: employed Sexual orientation: Straight/Heterosexual Cognitive needs: No Hearing needs: No Vision needs: Yes Questionnaire PHQ-9 Over the last 2 weeks, how often have you been bothered by any of the following problems? 1. Little interest or pleasure in doing things: several days 2. Feeling down, depressed, or hopeless: not at all 3. Trouble falling or staying asleep, or sleeping too much: more than half the days 4. Feeling tired or having little energy: several days 5. Poor appetite or overeating: more than half the days 6. Feeling bad about yourself - or that you are a failure or have let yourself or your family down: not at all 7. Trouble concentrating on things, such as reading the newspaper or watching television: not at all 8. Moving or speaking so slowly that other people could have noticed. Or the opposite - being so fidgety or restless that you have been moving around a lot more than usual: not at all 9. Thoughts that you would be better off or of hurting yourself in some way: not at all Total score: 6 Depression Screening Interpretation: Negative Depression Screening Done: Yes 27855 - PHQ-9 Billing: Yes Source: Developed by Drs. Galo Triplett, Lavern Israel, Darion Jarvis and colleagues, with an educational lisette from [employer] Thrive Questionnaire Date Thrive assessed: 02/29/24 I am a: Patient What is your living situation today?: I have a steady place to live Within the past 12 months, did the food you bought not last and you didn't have the money to get more?: Never true Within the past 12 months, did you worry whether your food would run out before you got money to buy more?: Never true Do you have trouble paying for medicines?: No Do you have trouble getting transportation to medical appointments?: No Do you have trouble paying your heating and electricity bill?: No Do you have trouble taking care of your child, family member or friend?: No Do you have trouble with day-to-day activities such as bathing, preparing meals, shopping, managing finances, etc.?: No Are you currently unemployed and looking for a job?: No Are you interested in more education?: No Please select the resources that you would like help with: None Currently or been in a relationship where the following occur: no concerns reported THRIVE Score: 0 AUDIT C Alcohol Use Questionnaire (AUDIT-C) 1. How often do you have a drink containing alcohol?: Never 3. How often do you have six or more drinks on one occasion?: Never Total Score: 0 Score Reviewed/Action Taken: Yes ZAID-7 AMB Questionnaire ZAID-7 Date ZAID - 7 assessed: 02/29/24 Feeling nervous, anxious, or on edge: 0 = Not at all Not being able to stop or control worryin = Not at all Worrying too much about different things: 0 = Not at all Trouble relaxin = Not at all Being so restless that it is hard to sit still: 0 = Not at all Becoming easily annoyed or irritable: 1 = Several days Feeling afraid as if something awful might happen: 0 = Not at all Total ZAID-7 score (0-4 normal; 5-9 mild; 10-14 moderate; 15-21 severe): 1 Source: Developed by Drs. Galo Triplett, Lavern Israel, Darion Jarvis and colleagues, with an educational lisette from [employer] ZAID-7 Assessment Billing ZAID-7 Assessment Tool: ZAID-7 Assessment 17101 Review of Systems Const Denies chills and Denies fever(s) ENT Denies epistaxis and Denies nasal discharge Card Denies chest pain Resp Denies chest congestion, Denies cough and Denies hemoptysis GI Denies diarrhea and Denies nausea Skin/Breast Denies rash Neuro Reports no additional complaints Psych Reports no additional complaints Endo Reports no additional complaints Physical exam (Primary Care) Vital Signs: Last Vital Signs Pulse 110 H 02/29/24 12:56 BP 108/62 02/29/24 12:56 Pulse Ox 98 02/29/24 12:56 Oxygen Delivery Method Room Air 02/29/24 12:56 BMI result Body Mass Index 41.8 Tobacco/Smoking Status: Tobacco use Status Tobacco use date assessed 02/29/24 02/29/24 13:11 Patient Tobacco Use Status Former Tobacco user 02/29/24 12:56 e-Cigarette/Vaping Use Never Used 02/29/24 12:56 PHQ-9: PHQ-9 Score PHQ-9: Total score 6 02/29/24 15:05 Depression Screening Interpretation: Negative Thrive Assessment: Date of Thrive Assessment Date Thrive assessed 02/29/24 02/29/24 15:05 Currently or been in a relationship where the following occur: no concerns reported Const General: cooperative, comfortable and no acute distress Orientation/consciousness: patient oriented x3 HENMT Head: Yes normocephalic Eyes General: appearance normal, both eyes and all related structures Neck Neck: Yes supple Resp Effort & Inspection: normal respiratory effort, no cough and no stridor Cardio Heart sounds: S1 normal heart sound present and S2 normal heart sound present Skin General skin exam: turgor normal Neuro General: patient oriented x3, tone normal and moves all extremities Extrem Right lower extremity: no edema Left lower extremity: no edema Assessment and Plan Assessment & Plan (1) Diabetes mellitus: Comment: Diet controlled Code(s): E11.9 - Type 2 diabetes mellitus without complications Qualifiers: Diabetes mellitus complication detail: with unspecified neuropathy Diabetes mellitus complication status: with neurologic complications Diabetes mellitus mcc insulin use: without intermediate project manager use Diabetes mellitus type: type 2 Qualified Code(s): E11.40 - Type 2 diabetes mellitus with diabetic neuropathy, unspecified (2) HTN (hypertension): Comment: As above Code(s): I10 - Essential (primary) hypertension Qualifiers: Hypertension type: primary hypertension Qualified Code(s): I10 - Essential (primary) hypertension (3) Other specified hypothyroidism: Code(s): E03.8 - Other specified hypothyroidism (4) Bipolar 1 disorder, manic, moderate: Code(s): F31.12 - Bipolar disorder, current episode manic without psychotic features, moderate (5) PTSD (post-traumatic stress disorder): Code(s): F43.10 - Post-traumatic stress disorder, unspecified (6) Bilateral dacryocystitis: Code(s): H04.303 - Unspecified dacryocystitis of bilateral lacrimal passages Plan Patient is 68 year female came today for regular follow-up appointment Last time seen was July last year Due for labs Only medication from PCP office is levothyroxine 150 mcg Patient have a history of bilateral dacryocystitis And is in need of Valerio tubes removed 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 Patient is diet-controlled diabetic as well and is in need of hemoglobin A1c. History of bipolar disorder stable Orders: Orders Hemoglobin A1c Today E03.8 - Other specified hypothyroidism, E11.40 - Type 2 diabetes mellitus with diabetic neuropathy, unspecified, F31.12 - Bipolar disorder, current episode manic without psychotic features, moderate, F43.10 - Post-traumatic stress disorder, unspecified, I10 - Essential (primary) hypertension TSH reflex Free T4 Today E03.8 - Other specified hypothyroidism, E11.40 - Type 2 diabetes mellitus with diabetic neuropathy, unspecified, F31.12 - Bipolar disorder, current episode manic without psychotic features, moderate, F43.10 - Post-traumatic stress disorder, unspecified, I10 - Essential (primary) hypertension LDL Cholesterol Direct Today E03.8 - Other specified hypothyroidism, E11.40 - Type 2 diabetes mellitus with diabetic neuropathy, unspecified, F31.12 - Bipolar disorder, current episode manic without psychotic features, moderate, F43.10 - Post-traumatic stress disorder, unspecified, I10 - Essential (primary) hypertension Microalbumin, Random (w Creat) Today E03.8 - Other specified hypothyroidism, E11.40 - Type 2 diabetes mellitus with diabetic neuropathy, unspecified, F31.12 - Bipolar disorder, current episode manic without psychotic features, moderate, F43.10 - Post-traumatic stress disorder, unspecified, I10 - Essential (primary) hypertension Complete Blood Count Auto Diff Today E03.8 - Other specified hypothyroidism, E11.40 - Type 2 diabetes mellitus with diabetic neuropathy, unspecified, F31.12 - Bipolar disorder, current episode manic without psychotic features, moderate, F43.10 - Post-traumatic stress disorder, unspecified, I10 - Essential (primary) hypertension Comprehensive Met. Panel Today E03.8 - Other specified hypothyroidism, E11.40 - Type 2 diabetes mellitus with diabetic neuropathy, unspecified, F31.12 - Bipolar disorder, current episode manic without psychotic features, moderate, F43.10 - Post-traumatic stress disorder, unspecified, I10 - Essential (primary) hypertension Vitamin B12 Today E03.8 - Other specified hypothyroidism, E11.40 - Type 2 diabetes mellitus with diabetic neuropathy, unspecified, F31.12 - Bipolar disorder, current episode manic without psychotic features, moderate, F43.10 - Post-traumatic stress disorder, unspecified, I10 - Essential (primary) hypertension Vitamin D 25-OH (D2 and D3) Today E03.8 - Other specified hypothyroidism, E11.40 - Type 2 diabetes mellitus with diabetic neuropathy, unspecified, F31.12 - Bipolar disorder, current episode manic without psychotic features, moderate, F43.10 - Post-traumatic stress disorder, unspecified, I10 - Essential (primary) hypertension Referrals Ear/Nose/Throat Referral H04.303 - Unspecified dacryocystitis of bilateral lacrimal passages Coding Level of Care Code Est Pt Level 4 (05800) Complex EM visit Add On G2211 Diagnoses Type 2 diabetes mellitus with diabetic neuropathy, without long-term current use of insulin E11.40 Diabetes mellitus complication detail: with unspecified neuropathy Diabetes mellitus complication status: with neurologic complications Diabetes mellitus intermediate project manager insulin use: without mcc use Diabetes mellitus type: type 2 Primary hypertension I10 Hypertension type: primary hypertension Other specified hypothyroidism E03.8 Bipolar 1 disorder, manic, moderate F31.12 PTSD (post-traumatic stress disorder) F43.10 Bilateral dacryocystitis H04.303 Additional Codes ZAID-7 Assessment Billing - ZAID-7 Assessment Tool: ZAID-7 Assessment 97741 ([id number])
[2024-02-29 12:56] VITALS: BP 108/62; PULSE 110; O2SAT 98; BMI 41.8
== END 2024-02-29 13:25 | disposition home or self-care (01) ==
PROVIDERS: PCP Internal Medicine; Visit Provider Internal Medicine
DX: E11.40 Type 2 diabetes mellitus with diabetic neuropathy, unspecified (principal); F31.12 Bipolar disorder, current episode manic without psychotic features, moderate; I10 Essential (primary) hypertension; E03.8 Other specified hypothyroidism; F43.10 Post-traumatic stress disorder, unspecified; H04.303 Unspecified dacryocystitis of bilateral lacrimal passages
CPT/HCPCS: 99214; G2211

== ENCOUNTER 2024-02-29 13:47 | Outpatient (REF) | payer MEDICARE, OTHER, BC, SELFPAY ==
[2024-02-29 14:07] LABS: MANUAL DIFF FLAG NO
[2024-02-29 14:48] LABS: Basophils Absolute Auto 0.1 X10*3/uL (0.0-0.2); Basophils Percent Auto 0.8 % (0-2); Eosinophils Absolute Auto 0.1 X10*3/uL (0.0-0.4); Eosinophils Percent Auto 1.4 % (0-4); Hematocrit 39.8 % (37.0-47.0); Hemoglobin 13.4 g/dl (12.0-16.0); Imm Gran Abs Auto 0.03 X10*3/uL (0.00-0.03); Imm Gran Pct Auto 0.3 % (0.0-0.4); Lymphocytes Absolute Auto 2.6 X10*3/uL (1.2-4.9); Mean Corpuscular HGB Conc 33.7 g/dl (31.0-35.0); Mean Platelet Volume 9.2 fL (9.4-12.3); Monocytes Absolute Auto 0.5 X10*3/uL (0.1-1.2); Monocytes Percent Auto 5.2 % (2-11); Neutrophils Percent Auto 64.3 % (45-73); Platelet Count 271 X10*3/uL (160-400); Red Blood Count 4.47 X10*6/uL (4.20-5.50); Red Cell Distribution Width 13.4 % (11.0-16.0); White Blood Count 9.3 X10*3/uL (4.8-10.8)
[2024-02-29 14:56] LABS: Estimated Average Glucose 166 mg/dL; Hemoglobin A1c % 7.4 % (<6.0)
[2024-02-29 15:42] LABS: Alanine Aminotransferase 16 U/L (0-31); Albumin Level 3.8 g/dL (3.5-5.0); Alkaline Phosphatase 83 U/L (39-117); Anion Gap 16 (12-20); Aspartate Amino Transferase 16 U/L (5-31); Bilirubin Total 0.5 mg/dL (0.0-1.0); Blood Urea Nitrogen 14 mg/dL (9-16); Carbon Dioxide 22 mmol/L (22-29); Chloride 104 mmol/L (96-108); Estimated Glomerular Filt Rate > 60; Glucose Random 164 mg/dL (60-115); Potassium 4.4 mmol/L (3.3-5.1); Sodium 138 mmol/L (135-145); Total Protein 7.6 g/dL (6.5-8.0)
[2024-02-29 16:00] LABS: Vitamin B12 433 pg/mL (200-900)
[2024-02-29 16:49] LABS: Valproate < 12.5 mcg/mL (50.0-100.0)
[2024-03-01 12:19] LABS: LDL Cholesterol Direct 80 mg/dL (<100)
[2024-03-03 15:39] LABS: Vitamin D 25-OH, D2 <4 ng/mL; Vitamin D 25-OH, D3 28 ng/mL; Vitamin D 25-OH, Total 28 ng/mL (30-100)
== END 2024-02-29 13:48 | disposition home or self-care (01) ==
LOC: HO.LAB 13:47
PROVIDERS: PCP Internal Medicine; Visit Provider Internal Medicine
DX: E11.9 Type 2 diabetes mellitus without complications (principal); I10 Essential (primary) hypertension; E66.01 Morbid (severe) obesity due to excess calories; I50.32 Chronic diastolic (congestive) heart failure; R53.1 Weakness; R26.2 Difficulty in walking, not elsewhere classified; R35.0 Frequency of micturition; F31.12 Bipolar disorder, current episode manic without psychotic features, moderate; E11.40 Type 2 diabetes mellitus with diabetic neuropathy, unspecified; E03.8 Other specified hypothyroidism; F43.10 Post-traumatic stress disorder, unspecified; I48.92 Unspecified atrial flutter; F99 Mental disorder, not otherwise specified
CPT/HCPCS: 36415; 80053; 80164; 82306; 82607; 83036; 83721; 84443; 85025

== ENCOUNTER 2024-03-05 14:26 | Outpatient (REF) | payer MEDICARE, OTHER, BC, SELFPAY ==
[2024-03-05 15:12] LABS: Appearance Urine Clear; Color Urine Yellow; Glucose Urine UA Negative (Negative); Leukocyte Esterase Urine Small (1+) (Negative); Nitrite Urine Negative (Negative); PH 5.5 (5.0-9.0); UMIC TRIGGER UACC YES; Urine Blood Trace (Negative); Urine Ketones Negative (Negative); Urine Protein Negative (Neg-Trace)
[2024-03-05 15:15] LABS: Bacteria Urine None Seen (None Seen); Hyaline Casts Urine 0-2 /LPF (0-2); RBC Urine 0-2 /HPF (0-2); Squamous Epithelial Cell Urine 0-2 /HPF (0-2); UACC Culture Trigger YES; WBC Urine 21-50 /HPF (0-5)
[2024-03-05 16:21] LABS: Creatinine Urine 68.01 mg/dL; Microalbum/Creatinine Ratio Ur 77.9 ug/mg cr (<30)
== END 2024-03-05 14:27 | disposition home or self-care (01) ==
LOC: HO.LNP 14:26
PROVIDERS: Visit Provider Internal Medicine
DX: I10 Essential (primary) hypertension (principal); E11.40 Type 2 diabetes mellitus with diabetic neuropathy, unspecified; E03.8 Other specified hypothyroidism; F31.12 Bipolar disorder, current episode manic without psychotic features, moderate; F43.10 Post-traumatic stress disorder, unspecified; R35.0 Frequency of micturition
CPT/HCPCS: 81001; 81003; 82043; 82570; 87086

== ENCOUNTER 2024-03-08 07:03 | Outpatient (AMB) | payer MEDICARE, OTHER, BC, SELFPAY ==
--- NOTE | 2024-03-08 09:00 | A.OFFPC_ITS ---
Intake Visit Reasons: Discuss Labs~ [phone] Allergies aspirin [ASA] Allergy (Intermediate, Verified 03/08/24 09:00) GI PAIN, upset stomach hazelnut Allergy (Unknown, Verified 03/08/24 09:00) Unknown shellfish derived Allergy (Unknown, Verified 03/08/24 09:00) Unknown divalproex sodium [From Depakote] Allergy (Verified 03/08/24 09:00) diarrhea, brain fog gluten Allergy (Verified 03/08/24 09:00) Unknown sesame seeds Allergy (Unknown, Uncoded 02/29/24 13:07) Unknown Medication List - Last Reconciled 03/08/24 by Adithya Gutierrez MD eluxadoline (Viberzi) 75 mg PO BID levothyroxine 150 mcg PO DAILY 90 days metoprolol succinate ER 50 mg See Protocol PO BID 30 days nitrofurantoin monohyd/m-cryst 100 mg (Macrobid) 100 mg PO Q12H 3 days rivaroxaban (Xarelto) 20 mg PO QPM trazodone 220 mg PO BEDTIME Tobacco use date assessed: 03/08/24 Fall risk assessment: No Falls in past year Last assessed Fall Risk: 03/08/24 Dental Screening Dental Screen Date: 03/08/24 Did you have a dental visit in the last 12 months?: No Did you have a dental problem in the last 6 months where you did not have access to dental care?: No Was dental information given to patient?: No HPI Discuss Labs~ [phone] HPI Details Labs done recently showed HAbic of 7.4 she is not taking any meds use to be on meds before patient states she has gluten sensitivity her has been buying her gluten free stuff which sometimes has sugar she will be more careful now she want to wait 3 months before started on med her vit D level is low, supplement sent UA showed slight infection, Macrobid was sent earlier for 3 days Repeat UA after finishing Abx [facility] Medical History Irritable bowel syndrome with diarrhea Chronic atrial fibrillation Paroxysmal atrial fibrillation C. difficile colitis Morbid obesity due to excess calories Non-insulin dependent type 2 diabetes mellitus Weakness Leg edema Bipolar 1 disorder Vertigo PTSD (post-traumatic stress disorder) History of cardioversion Arthritis Hypothyroidism History of wheezing Diabetes mellitus HTN (hypertension) LBBB (left bundle branch block) PAF (paroxysmal atrial fibrillation) Surgical History History of cardiac radiofrequency ablation History of eye surgery Hx of section Hx of colonoscopy Hx of cholecystectomy Hx of arthroscopy of right knee Family History Father No problems noted. Mother No problems noted. Other Mental health disorder Substance use disorder Social History Household Members: Spouse and Children Household Members Other:: daughter + Housing: House Do you presently have visiting nurse or other home services: Yes Alcohol intake: former Comment: patient fll asleep Patient Tobacco Use Status: Former Tobacco user Quit Date: 1989 e-Cigarette/Vaping Use: Never Used Second Hand Smoke Exposure: No Advance Directives Date on File: 06/29/23 service: No Current occupational status: employed Sexual orientation: Straight/Heterosexual Cognitive needs: No Hearing needs: No Vision needs: Yes Questionnaire Thrive Questionnaire Date Thrive assessed: 02/29/24 AUDIT C Alcohol Use Questionnaire (AUDIT-C) 1. How often do you have a drink containing alcohol?: Never 3. How often do you have six or more drinks on one occasion?: Never Total Score: 0 Score Reviewed/Action Taken: Yes ZAID-7 AMB Questionnaire ZAID-7 Date ZAID - 7 assessed: 02/29/24 Source: Developed by Drs. Galo Triplett, Lavern Israel, Darion Jarvis and colleagues, with an educational lisette from [employer]. Review of Systems Const Denies chills and Denies fever(s) ENT Denies epistaxis and Denies nasal discharge Card Denies chest pain Resp Denies chest congestion, Denies cough and Denies hemoptysis GI Denies diarrhea and Denies nausea Skin/Breast Denies rash Neuro Reports no additional complaints Psych Reports no additional complaints Endo Reports no additional complaints Physical exam (Primary Care) Tobacco/Smoking Status: Tobacco use Status Tobacco use date assessed 03/08/24 03/08/24 09:01 Patient Tobacco Use Status Former Tobacco user 03/08/24 09:01 e-Cigarette/Vaping Use Never Used 03/08/24 09:01 Thrive Assessment: Date of Thrive Assessment Date Thrive assessed 02/29/24 03/08/24 09:01 Assessment and Plan Assessment & Plan (1) Diabetes mellitus: Comment: Diet controlled Code(s): E11.9 - Type 2 diabetes mellitus without complications Qualifiers: Diabetes mellitus complication detail: with unspecified neuropathy Diabetes mellitus complication status: with neurologic complications Diabetes mellitus senior care insulin use: without long term care phlebotomist use Diabetes mellitus type: type 2 Qualified Code(s): E11.40 - Type 2 diabetes mellitus with diabetic neuropathy, unspecified (2) Non-celiac gluten sensitivity: Code(s): K90.41 - Non-celiac gluten sensitivity (3) Vitamin D deficiency: Code(s): E55.9 - Vitamin D deficiency, unspecified Plan Labs done recently showed HAbic of 7.4 she is not taking any meds use to be on meds before patient states she has gluten sensitivity her has been buying her gluten free stuff which sometimes has sugar she will be more careful now she want to wait 3 months before started on med her vit D level is low, supplement sent UA showed slight infection, Macrobid was sent earlier for 3 days Repeat UA after finishing Abx Orders: Orders UA CC w/rflx Micro + Cult Today N39.0 - Urinary tract infection, site not s pecified Hemoglobin A1c 3 Months E11.40 - Type 2 diabetes mellitus with diabetic neuropathy, unspecified Medications: New cholecalciferol (vitamin D3) 25 mcg PO DAILY 90 days 90 caps 0RF Coding Level of Care Code Tele Est Pt Level 3 (29778) Diagnoses Type 2 diabetes mellitus with diabetic neuropathy, without long-term current use of insulin E11.40 Diabetes mellitus complication detail: with unspecified neuropathy Diabetes mellitus complication status: with neurologic complications Diabetes mellitus senior care insulin use: without long term care phlebotomist use Diabetes mellitus type: type 2 Non-celiac gluten sensitivity K90.41 Vitamin D deficiency E55.9
== END 2024-03-08 11:39 | disposition home or self-care (01) ==
LOC: HO.HMGC 07:03
PROVIDERS: PCP Internal Medicine; Visit Provider Internal Medicine
DX: E11.40 Type 2 diabetes mellitus with diabetic neuropathy, unspecified (principal); K90.41 Non-celiac gluten sensitivity; E55.9 Vitamin D deficiency, unspecified
CPT/HCPCS: 99442

== ENCOUNTER 2024-03-15 08:36 | Outpatient (AMB) | payer MEDICARE, OTHER, BC, SELFPAY ==
--- NOTE | 2024-03-15 09:44 | MHC.PC.OV ---
Intake Visit Reasons: Discuss Referral~ [phone] Allergies aspirin [ASA] Allergy (Intermediate, Verified 03/08/24 09:00) GI PAIN, upset stomach hazelnut Allergy (Unknown, Verified 03/08/24 09:00) Unknown shellfish derived Allergy (Unknown, Verified 03/08/24 09:00) Unknown divalproex sodium [From Depakote] Allergy (Verified 03/08/24 09:00) diarrhea, brain fog gluten Allergy (Verified 03/08/24 09:00) Unknown sesame seeds Allergy (Unknown, Uncoded 02/29/24 13:07) Unknown Medication List - Last Reconciled 03/15/24 by Adithya Gutierrez MD cholecalciferol (vitamin D3) 25 mcg PO DAILY 90 days eluxadoline (Viberzi) 75 mg PO BID levothyroxine 150 mcg PO DAILY 90 days metoprolol succinate ER 50 mg See Protocol PO BID 30 days nitrofurantoin monohyd/m-cryst 100 mg (Macrobid) 100 mg PO Q12H 5 days rivaroxaban (Xarelto) 20 mg PO QPM trazodone 220 mg PO BEDTIME Tobacco use date assessed: 03/08/24 Dental Screening Dental Screen Date: 03/08/24 HPI Discuss Referral~ [phone] HPI Details Patient have a history of bilateral dacryocystitis And is in need of Valerio tubes removed last visit she has her verblzied that [facility] do that there and advised them to get referral to ENT thru her PCP and I did placed that Patient states that ENT dont do that either she is now asking another referral to different eye doctor [facility] Medical History Irritable bowel syndrome with diarrhea Chronic atrial fibrillation Paroxysmal atrial fibrillation C. difficile colitis Morbid obesity due to excess calories Non-insulin dependent type 2 diabetes mellitus Weakness Leg edema Bipolar 1 disorder Vertigo PTSD (post-traumatic stress disorder) History of cardioversion Arthritis Hypothyroidism History of wheezing Diabetes mellitus HTN (hypertension) LBBB (left bundle branch block) PAF (paroxysmal atrial fibrillation) Surgical History History of cardiac radiofrequency ablation History of eye surgery Hx of section Hx of colonoscopy Hx of cholecystectomy Hx of arthroscopy of right knee Family History Father No problems noted. Mother No problems noted. Other Mental health disorder Substance use disorder Social History Household Members: Spouse and Children Household Members Other:: daughter + Housing: House Do you presently have visiting nurse or other home services: Yes Alcohol intake: former Comment: patient fll asleep Patient Tobacco Use Status: Former Tobacco user Quit Date: 1989 e-Cigarette/Vaping Use: Never Used Second Hand Smoke Exposure: No Advance Directives Date on File: 06/29/23 service: No Current occupational status: employed Sexual orientation: Straight/Heterosexual Cognitive needs: No Hearing needs: No Vision needs: Yes Questionnaire Thrive Questionnaire Date Thrive assessed: 02/29/24 ZAID-7 AMB Questionnaire ZAID-7 Date ZAID - 7 assessed: 02/29/24 Source: Developed by Drs. Galo Triplett, Lavern Israel, Darion Jarvis and colleagues, with an educational lisette from [email or web address] Review of Systems Const Denies chills and Denies fever(s) ENT Denies epistaxis and Denies nasal discharge Card Denies chest pain Resp Denies chest congestion, Denies cough and Denies hemoptysis GI Denies diarrhea and Denies nausea Skin/Breast Denies rash Neuro Reports no additional complaints Psych Reports no additional complaints Endo Reports no additional complaints Physical exam (Primary Care) Tobacco/Smoking Status: Tobacco use Status Tobacco use date assessed 03/08/24 03/15/24 09:44 Patient Tobacco Use Status Former Tobacco user 03/15/24 09:44 e-Cigarette/Vaping Use Never Used 03/15/24 09:44 Thrive Assessment: Date of Thrive Assessment Date Thrive assessed 02/29/24 03/15/24 09:44 Telehealth Telehealth Telehealth Platform: [facility] Location of provider rendering services: practice address Location of patient: address on file Patient Identification confirmed using: Name, : Yes Telehealth method: video (attempted) Patient verbally consented to treatment: Yes Patient verbally consented to billing insurance company: Yes Patient informed of any privacy concerns related to visit: Yes Minutes spent on Phone/Video with Pt.: 13 Assessment and Plan Assessment & Plan (1) Bilateral dacryocystitis: Code(s): H04.303 - Unspecified dacryocystitis of bilateral lacrimal passages Plan Patient have a history of bilateral dacryocystitis And is in need of Valerio tubes removed last visit she has her verblzied that [facility] told them they dont do that there and advised them to get referral to ENT thru her PCP and I did placed that Patient states that ENT dont do that either she is now asking another referral to different eye doctor Orders: Referrals Ophthalmology Referral H04.303 - Unspecified dacryocystitis of bilateral lacrimal passages Coding Level of Care Code Tele Est Pt Level 3 (89274) Diagnoses Bilateral dacryocystitis H04.303
== END 2024-03-15 10:47 | disposition home or self-care (01) ==
LOC: HO.HMGC 08:36
PROVIDERS: PCP Internal Medicine; Visit Provider Internal Medicine
DX: H04.303 Unspecified dacryocystitis of bilateral lacrimal passages (principal)
CPT/HCPCS: 99213

== ENCOUNTER 2024-04-23 16:04 | Outpatient (REF) | payer MEDICARE, OTHER, BC, SELFPAY ==
[2024-04-23 17:50] LABS: Appearance Urine Turbid; Color Urine Dark Yellow; Glucose Urine UA 100 mg/dL (Negative); Leukocyte Esterase Urine Large (3+) (Negative); Nitrite Urine Negative (Negative); PH 5.5 (5.0-9.0); UMIC TRIGGER UACC YES; Urine Blood Large (3+) (Negative); Urine Ketones Trace mg/dL (Negative); Urine Protein 300 (3+) mg/dL (Neg-Trace)
[2024-04-23 18:02] LABS: Bacteria Urine Trace (None Seen); Calcium Oxalate Crystals Urine Present; Hyaline Casts Urine 0-2 /LPF (0-2); RBC Urine >20 /HPF (0-2); UACC Culture Trigger YES; WBC Urine >50 /HPF (0-5)
== END 2024-04-23 16:05 | disposition home or self-care (01) ==
LOC: HO.LAB 16:04
PROVIDERS: PCP Internal Medicine; Visit Provider Internal Medicine
DX: N39.0 Urinary tract infection, site not specified (principal); R82.90 Unspecified abnormal findings in urine
CPT/HCPCS: 81001; 87086; 87088; 87186

== ENCOUNTER 2024-06-07 12:39 | Outpatient (AMB) | payer MEDICARE, BC, SELFPAY ==
[2024-06-07 12:52] VITALS: BP 100/62; PULSE 103; BMI 40.9
--- NOTE | 2024-06-07 12:52 | A.OFFVIS_ITS ---
Vital Signs 06/07/24 12:52 Height 5 ft 3 in Weight 231 lb 0.711 oz BMI 40.9 BP 100/62 Blood Pressure Location Lt brachial Position Sitting Pulse 103 H Pulse Source Monitor Intake Visit Reasons: 6 mth f/up NS Allergies aspirin [ASA] Allergy (Intermediate, Verified 06/07/24 12:55) GI PAIN, upset stomach hazelnut Allergy (Unknown, Verified 06/07/24 12:55) Unknown shellfish derived Allergy (Unknown, Verified 06/07/24 12:55) Unknown divalproex sodium [From Depakote] Allergy (Verified 06/07/24 12:55) diarrhea, brain fog gluten Allergy (Verified 06/07/24 12:55) Unknown sesame seeds Allergy (Unknown, Uncoded 06/07/24 12:55) Unknown Medication List - Last Reconciled 06/07/24 by Sonali Dumont, MANUFACTURING MACHINE OPERATOR-C cholecalciferol (vitamin D3) 25 mcg PO DAILY 90 days eluxadoline (Viberzi) 75 mg PO BID levothyroxine 150 mcg PO DAILY 90 days metoprolol succinate ER 50 mg See Protocol PO BID 30 days nitrofurantoin monohyd/m-cryst 100 mg (Macrobid) 100 mg PO Q12H 5 days rivaroxaban (Xarelto) 20 mg PO QPM trazodone 220 mg PO BEDTIME HPI HPI 6 mth f/up NS: Details: Chloe is a 68-year-old female with past medical history of hypertension, diabetes, diastolic dysfunction, morbid obesity, sedentary, persistent AFib presents for follow-up. Today she reports doing well since her last visit in December. She has known chronic AFib and will feel heart palpitations on occasion. She has shortness of breath with exertional activities such as stair climbing and showers. No chest discomfort at rest or with activity. No lightheadedness, presyncope, syncope, falls. No bleeding issues reported. Taking meds as directed. Mostly sedentary. Sitting in a wheelchair at this visit. [facility] Medical History Irritable bowel syndrome with diarrhea Chronic atrial fibrillation Paroxysmal atrial fibrillation C. difficile colitis Morbid obesity due to excess calories Non-insulin dependent type 2 diabetes mellitus Weakness Leg edema Bipolar 1 disorder Vertigo PTSD (post-traumatic stress disorder) History of cardioversion Arthritis Hypothyroidism History of wheezing Diabetes mellitus HTN (hypertension) LBBB (left bundle branch block) PAF (paroxysmal atrial fibrillation) Surgical History History of cardiac radiofrequency ablation History of eye surgery Hx of section Hx of colonoscopy Hx of cholecystectomy Hx of arthroscopy of right knee Family History Father No problems noted. Mother No problems noted. Other Mental health disorder Substance use disorder Social History Household Members: Spouse and Children Household Members Other:: daughter + Housing: House Do you presently have visiting nurse or other home services: Yes Alcohol intake: former Comment: patient fll asleep Patient Tobacco Use Status: Former Tobacco user e-Cigarette/Vaping Use: Never Used Second Hand Smoke Exposure: No Advance Directives Date on File: 06/29/23 service: No Current occupational status: employed Sexual orientation: Straight/Heterosexual Cognitive needs: No Hearing needs: No Vision needs: Yes Review of Systems Const All systems reviewed & are unremarkable except as noted in HPI and below ENT Denies dizziness Card Denies chest pain, Denies chest pain at rest, Denies chest pain with activity, Denies rapid heart rate, Denies pedal edema, Denies edema, Denies leg edema, Denies lightheadedness, Denies palpitations, Denies dyspnea, Denies dyspnea on exertion and Denies orthopnea Resp Denies cough, Denies dyspnea and Denies dyspnea on exertion GI Denies hematochezia and Denies change in stool character Musc Denies abnormal gait, Denies limited range of motion, Denies muscle cramps, Denies muscle weakness, Denies numbness, Denies radiating pain into limb, Denies stiffness and Denies tingling Neuro Denies abnormal gait, Denies dizziness, Denies numbness and Denies tingling Endo Denies palpitations Physical Exam Vital Signs: Last Vital Signs Pulse 103 H 06/07/24 12:52 BP 100/62 06/07/24 12:52 BMI result Body Mass Index 40.9 Const Other: Morbidly obese General: cooperative, comfortable and no acute distress Orientation/consciousness: patient oriented x3 Neck Neck: Yes normal visual inspection and Yes no JVD Resp Effort & Inspection: normal respiratory effort Auscultation: clear to auscultation bilaterally, no crackles, no rales, no rhonchi and no wheezes Cardio Jugular venous distension: no JVD Rate: tachycardic Rhythm: abnormal rhythm Heart sounds: S1 normal heart sound present, S2 normal heart sound present, no gallops, no murmurs and no rubs Neuro General: patient oriented x3 Extrem General: Yes normal to inspection and No no pedal edema Psych Appearance: grossly normal Mental Status: mental status grossly normal Speech and movement: Normal speech and movement present Office Procedures EKG Details: Today, read by me, atrial fibrillation with rapid ventricular response, low- voltage QRS, nonspecific ST/T abnormality, artifact on tracing, QTC 435 using QTC calculator, rate 103 [id number], Complete Assessment & Plan Assessment & Plan (1) Chronic atrial fibrillation: Code(s): I48.20 - Chronic atrial fibrillation, unspecified Category: Medical Plan: Known history chronic atrial fibrillation. She has been on metoprolol XL 50 mg b.i.d. for heart rate control. She is on Xarelto 20 mg daily for anticoagulation. EKG done today shows atrial fibrillation with rapid ventricular response, rate 103. Pulse check when done by me in the office shows heart rate ranging 96-107. She does report occasional heart palpitations but not usually bothersome. Echocardiogram was done 10/10/2023 showing low normal EF 50-55%, mild decrease in the RV systolic function. On exam she has no clinical signs of heart failure. She tells me her heart rates elevated due to coming to the office today. Suggested increase in metoprolol dose and she declines as she does not believe her heart is fast all the time. Will check a Holter monitor to assess for average heart rates. Plan to call her with results. At this time will plan for cardiology follow-up 6 months, sooner if needed. (2) Diastolic dysfunction with chronic heart failure: Code(s): I50.32 - Chronic diastolic (congestive) heart failure Category: Medical Plan: Stable at this time with no clinical signs of heart failure. She does have some shortness of breath with physical activity which new and likely related to her morbid obesity and sedentary lifestyle. Signs and symptoms of heart failure reviewed with her. (3) Chronic anticoagulation: Code(s): Z79.01 - alf (current) use of anticoagulants Category: Medical Plan: On Xarelto for anticoagulation. Labs done 02/29/2024 showed hemoglobin 13.4 and creatinine 0.84. Plan Time spent on chart review, documentation, interview and assessment Orders: Orders ECG 3 day holter monitor Today I48.20 - Chronic atrial fibrillation, unspecified Coding Level of Care Code Est Pt Level 3 (78506) Diagnoses Chronic atrial fibrillation I48.20 Diastolic dysfunction with chronic heart failure I50.32 Chronic anticoagulation Z79.01 CPT Codes EKG - CPT: 53507-[id number], Complete ([id number]) Time Spent (min) 24
== END 2024-06-07 13:36 | disposition home or self-care (01) ==
PROVIDERS: PCP Internal Medicine; Visit Provider Nurse Practitioner Family
DX: I48.20 Chronic atrial fibrillation, unspecified (principal); I50.32 Chronic diastolic (congestive) heart failure; Z79.01 Long term (current) use of anticoagulants
CPT/HCPCS: 93010; 99213

== ENCOUNTER → 2024-06-07 12:39 | Outpatient (BNVA) | payer MEDICARE, BC, SELFPAY | PROVIDERS: PCP Internal Medicine; Visit Provider Nurse Practitioner Family | DX: I48.20 Chronic atrial fibrillation, unspecified (principal); I50.32 Chronic diastolic (congestive) heart failure; Z79.01 Long term (current) use of anticoagulants | CPT/HCPCS: 93005; 99212 ==

== ENCOUNTER 2024-06-08 10:16 | Outpatient (REF) | payer MEDICARE, BC, SELFPAY ==
[2024-06-08 16:37] LABS: Urine Cytology See Pathology rpt
== END 2024-06-08 10:17 | disposition home or self-care (01) ==
LOC: HO.LAB 10:16
PROVIDERS: PCP Internal Medicine; Visit Provider Urology
DX: N39.0 Urinary tract infection, site not specified (principal); R82.79 Other abnormal findings on microbiological examination of urine
CPT/HCPCS: 51798; 52000; 81003; 87086; 87088; 87186; 88112; 99202

== ENCOUNTER 2024-06-08 10:16 | Outpatient (AMB) | payer MEDICARE, BC, SELFPAY ==
--- NOTE | 2024-06-08 10:28 | MHC.OFFVIS ---
Intake Visit Reasons: Urinary tract infection Intake Note: Bianca is a 68 year old female who presents to the office today for a urinary tract infection. Urology meds:None Blood thinners:None PVR:0mL Allergies aspirin [ASA] Allergy (Intermediate, Verified 06/08/24 10:28) GI PAIN, upset stomach hazelnut Allergy (Unknown, Verified 06/08/24 10:28) Unknown shellfish derived Allergy (Unknown, Verified 06/08/24 10:28) Unknown divalproex sodium [From Depakote] Allergy (Verified 06/08/24 10:28) diarrhea, brain fog gluten Allergy (Verified 06/08/24 10:28) Unknown sesame seeds Allergy (Unknown, Uncoded 06/08/24 10:28) Unknown HPI Comments Details: Bianca is a 68 y/o female here with complaints of hematuria and recurrent UTI's. States started about Feb, 2024. Her is present and gives most of the history. He states she was given 4 courses of antibiotics, nitrofurantoin. 03/2024 urine c/s - Ecoli. Sensitivities noted below. In review of chart: CTAPw/contrast - kidneys wnL, abnormal findings in bladder. UA nitrite positive- will empically treat with levaquin 500 mg daily. H/o nicotine use. Will send urine for culture and cytology. Renal US. Discussed cysto/TURBT, pt on anticoagulation, need Cardiology clearance. Office cystoscopy: papillary bladder tumor, right lateral wall. [facility] Medical History Irritable bowel syndrome with diarrhea Chronic atrial fibrillation Paroxysmal atrial fibrillation C. difficile colitis Morbid obesity due to excess calories Non-insulin dependent type 2 diabetes mellitus Weakness Leg edema Bipolar 1 disorder Vertigo PTSD (post-traumatic stress disorder) History of cardioversion Arthritis Hypothyroidism History of wheezing Diabetes mellitus HTN (hypertension) LBBB (left bundle branch block) PAF (paroxysmal atrial fibrillation) Surgical History History of cardiac radiofrequency ablation History of eye surgery Hx of section Hx of colonoscopy Hx of cholecystectomy Hx of arthroscopy of right knee Family History Father No problems noted. Mother No problems noted. Other Mental health disorder Substance use disorder Social History Household Members: Spouse and Children Household Members Other:: daughter + Housing: House Do you presently have visiting nurse or other home services: Yes Alcohol intake: former Comment: patient fll asleep Patient Tobacco Use Status: Former Tobacco user e-Cigarette/Vaping Use: Never Used Second Hand Smoke Exposure: No Advance Directives Date on File: 06/29/23 service: No Current occupational status: employed Sexual orientation: Straight/Heterosexual Cognitive needs: No Hearing needs: No Vision needs: Yes Review of Systems Const All systems reviewed & are unremarkable except as noted in HPI and below Reports no additional complaints Eyes Reports no additional complaints ENT Reports no additional complaints Card Reports no additional complaints Resp Reports no additional complaints GI Reports no additional complaints Reports as per HPI Musc Reports no additional complaints Skin/Breast Reports system reviewed and no additional complaints, except as documented Neuro Reports no additional complaints Psych Reports no additional complaints Endo Reports no additional complaints Serafin/Lymph Reports no additional complaints Aller/Immun Reports no additional complaints Physical Exam Const General: cooperative, healthy appearing and no acute distress Nutritional Appearance: overweight Orientation/consciousness: patient oriented x3 HEENT Head: Yes normal to inspection, Yes normocephalic and Yes atraumatic Eyes Conjunctivae: conjunctivae normal Neck Neck: Yes normal visual inspection and Yes trachea midline Chest Chest palpation & inspection: normal inspection of the chest Resp Effort & Inspection: normal respiratory effort Cardio Jugular venous distension: no JVD GI Inspection: Yes normal to inspection Palpation (GI): Soft to palpation General: No no CVA tenderness External Female Exam: normal external appearance Back/Spine/Pelvis Back: No no CVA tenderness Neuro General: patient oriented x3 Psych Appearance: grossly normal Office Procedures Cystoscopy Consent Discussed risk and benefit or proposed procedure with the patient. Information consent for procedure given to the patient. Discussed technical aspects, risks, benefits and alternatives in full. Addressed all of the patient's questions and concerns regarding the procedure. The patient demonstrated knowledge and understanding. They wish to proceed with this procedure. Preparation The patient was prepped in the usual manner. A repairer art objects was present and in the room. Genitalia was prepped with betadine solution in a sterile manner. Lidocaine Jelly 2% was placed into the urethra and 16Fr flexible Olympus cystoscope was inserted into the meatus after adequate lubrication. Procedure Time out per protocol performed. Bladder Inspection Bladder Inspection: The bladder was inspected in its entirety with utilization retroflexion displaying: Tumor(s): 2-3 cm right lateral wall, extending to bladder neck Urethra: normal The bladder was irrigated but due to the blood tinged urine, visualization was limited. [id number] DISPOSABLE SCOPE URO-G FLEXIBLE SCOPE Procedure code (CPT) selection complete Post Void Residual Post Residual Void Post Void Residual (PVR): 0 22770-Nzeo Void Residual by ultrasound Office Meds lidocaine HCl 2 % mucosal jelly in applicator Performing Provider: Mariano Sanchez MD Performing Location: [facility] [place] Administered by: Arnel Ro LPN on 06/08/24 11:28 Dose Route Admin Location Dispensed Lot Number Expiration Date ND Milk Inspector 10 mL intra-urethral 10 mL naproxen 500 mg tablet Performing Provider: Mariano Sanchez MD Performing Location: [facility] [place] [facility] Administered by: Arnel Ro LPN on 06/08/24 11:28 Dose Route Admin Location Dispensed Lot Number Expiration Date ND Milk Inspector 500 mg PO 1 tab ciprofloxacin HCl 500 mg tablet Performing Provider: Mariano Sanchez MD Performing Location: [facility] [place] [facility] Administered by: Arnel Ro LPN on 06/08/24 11:28 Dose Route Admin Location Dispensed Lot Number Expiration Date NDC Milk Inspector 500 mg PO 1 tab Results AMB Urinalysis, Automated UA Leukoctes 500 Quiana/uL Last Edit by Rebecca Avalos CMA on 06/08/24 10:39 UA Nitrite Positive Last Edit by Rebecca Avalos CMA on 06/08/24 10:39 UA Urobilinogen 0.2 mg/dL Last Edit by Rebecca Avalos CMA on 06/08/24 10:39 UA Protein 300 mg/dL Last Edit by Rebecca Avalos CMA on 06/08/24 10:39 UA pH 5.5 Last Edit by Rebecca Avalos CMA on 06/08/24 10:39 UA Blood 200 Kayode/uL Last Edit by Rebecca Avalos CMA on 06/08/24 10:39 UA Specific Ovid 1.020 Last Edit by Rebecca Avalos CMA on 06/08/24 10:39 UA Ketone Positive Last Edit by Rebecca Avalos CMA on 06/08/24 10:39 UA Bilirubin 0 mg/dL Last Edit by Rebecca Avalos CMA on 06/08/24 10:39 UA Glucose 500 mg/dL Last Edit by Rebecca Avalos CMA on 06/08/24 10:39 Results Reviewed Results Reviewed: Laboratory Last Values Urine pH (Auto) 5.5 06/08/24 10:32 Specific Ovid (Auto) 1.020 06/08/24 10:32 Urine Protein (Auto) 300 mg/dL 06/08/24 10:32 Glucose (UA)(Auto) 500 mg/dL 06/08/24 10:32 Urine Ketones (Auto) Positive 06/08/24 10:32 Urine Blood (Auto) 200 Kayode/uL 06/08/24 10:32 Urine Nitrite (Auto) Positive 06/08/24 10:32 Urine Bilirubin (Auto) 0 mg/dL 06/08/24 10:32 Urine Urobilinogen (Auto) 0.2 mg/dL 06/08/24 10:32 Leukocyte Esterase (Auto) 500 Quiana/uL 06/08/24 10:32 Collected: 04/23/24161 Status: COMP Req#: [id number] Received: 04/23/24 Source: [facility] Sp Desc: Urine montanez Subm Dr: Adithya Gutierrez MD Ordered: Urine Culture Procedure Result Verified Urine Culture Final 04/26/24 Organism 1 Escherichia coli Quant > 100,000 cfu/mL E coli M.I.C. RX --------- --- Ampicillin 4 S Ceftriaxone <=0.25 S Gentamicin <=1 S Levofloxacin <=0.12 S Nitrofurantoin <=16 S Trimethoprim/Sulfamethoxazole <=20 S Date of Service: 09/29/23 EXAMINATION: CT ABDOMEN AND PELVIS WITH CONTRAST CLINICAL INFORMATION: Abdominal pain, sepsis COMPARISON: CT abdomen and pelvis 09/03/2023 TECHNIQUE: Multidetector volumetric images were obtained from the superior aspect of the liver through the pubic symphysis following administration 85 mL of Omnipaque 350 intravenous contrast. Sagittal and coronal reformatted images were obtained on the technologist's workstation. Oral contrast: No This CT examination was performed using dose optimization techniques as appropriate, variously including the following: *Automated exposure control *Adjustment of mA and/or kV according to patient size (this includes techniques or standardized protocols for targeted exams where dose is matched to indication/reason for exam; i.e. extremities or head) *Use of iterative reconstruction technique DLP: 1693 mGy-cm FINDINGS: There is motion artifact throughout the exam limiting evaluation. LUNG BASES: The visualized lung bases are unremarkable. LIVER, GALLBLADDER, AND BILIARY TREE: The liver is normal in size, shape, with a low-attenuation area in the left hepatic and right hepatic lobe on axial slice 18/3 no focal hepatic lesion or biliary ductal dilatation is present. There are surgical dayday in the right upper quadrant from previous cholecystectomy. PANCREAS: Unremarkable. SPLEEN: Unremarkable. ADRENAL GLANDS: Unremarkable. KIDNEYS AND URETERS: The kidneys are normal in size, shape, and attenuation. No hydronephrosis, hydroureter, or calculi seen. No perinephric stranding. BLADDER: There is mild bladder wall thickening with enhancing 1.2 cm nodule along the right posterior bladder wall and moderate bladder wall thickening along the base. No radiopaque calculi seen. GASTROINTESTINAL TRACT: There is scattered stool and gas seen throughout the colon without distention. The small bowel loops are normal caliber. Appendix is not seen. ABDOMINAL WALL: No significant hernia is appreciated. LYMPH NODES: Normal. VASCULAR: Unremarkable. PELVIC VISCERA: Unremarkable. OSSEOUS STRUCTURES: Mild degenerative disc changes with vacuum disc phenomena at L1-L2, L3-L4 disc levels. No aggressive lytic or sclerotic process. There is mild ventral spondylosis mid lumbar spine. IMPRESSION: 1. No acute intra-abdominal process seen. 2. Mild bladder wall thickening with enhancing nodule along the right posterior bladder wall and moderate bladder wall thickening along the base. No change from the last exam. Recommend cystoscopy. 3. Low-attenuation area in the left and right hepatic lobe are stable. 4. Mild constipation. Assessment & Plan Assessment & Plan (1) Gross hematuria: Code(s): R31.0 - Gross hematuria Category: Medical (2) Recurrent UTI: Code(s): N39.0 - Urinary tract infection, site not specified Category: Medical (3) Bladder mass: Code(s): N32.89 - Other specified disorders of bladder Category: Medical Plan UA nitrite positive- will empically treat with levaquin 500 mg daily. Will send urine for culture and cytology. Renal US. Office cystoscopy: papillary bladder tumor, right lateral wall. Discussed cysto/TURBT, pt on anticoagulation, need Cardiology clearance. Orders: Orders AMB Urinalysis Automated Today N39.0 - Urinary tract infection, site not specified AMB Post Void Residual by ultrasound Today N39.0 - Urinary tract infection, site not specified Urine Culture Today N39.0 - Urinary tract infection, site not specified AMB Cystoscopy Today N39.0 - Urinary tract infection, site not specified, R35.0 - Frequency of micturition Urine Cytology Today N39.0 - Urinary tract infection, site not specified Medications: New levofloxacin 500 mg PO DAILY 7 days 7 tabs 0RF Patient Instructions: The patient had an opportunity to ask questions regarding treatment plan. The patient expressed understanding and agreement with the above treatment plan. The patient is aware they should contact our office by phone for worsening of their current condition or the appearance of new symptoms. Compliance is encouraged with any medications and followup testing that is ordered. It is a privilege to be allowed the opportunity to participate in the urologic care of your patient. If you have any questions or concerns regarding treatment for the above conditions please do not hesitate to contact me. The office telephone contact is [phone]. This note is constructed in part using voice recognition software. While every effort has been made to ensure accuracy public relations account supervisor errors may have been included. Yours sincerely, Mariano Sanchez MD Coding Level of Care Code New Pt Level 4 (25705) Diagnoses Gross hematuria R31.0 Recurrent UTI N39.0 Bladder mass N32.89 CPT Codes Cystoscopy - CPT: 70017-Npfvasjjfx ([id number]) Post Residual Void - PVR CPT Code: 04565-Dxao Void Residual by ultrasound ([id number])
== END 2024-06-08 12:08 | disposition home or self-care (01) ==
PROVIDERS: PCP Internal Medicine; Visit Provider Urology
DX: R31.0 Gross hematuria (principal); N39.0 Urinary tract infection, site not specified; N32.89 Other specified disorders of bladder; R35.0 Frequency of micturition
CPT/HCPCS: 52000; 99204

== ENCOUNTER → 2024-06-14 11:33 | Outpatient (REF) | payer MEDICARE, BC, SELFPAY ==
--- NOTE | 2024-06-14 11:37 | HM_ITS ---
* Total monitoring time 3 days. * Underlying rhythm is atrial fibrillation. Average ventricular rate 99/Min. * About 27% of the time, rate > 100/Min. Maximum rate 176/Min. * Rare ventricular ectopy. * No significant pauses or AV blocks. * Patient marker used once in association with atrial fibrillation. * Shortness of breath, palpitations in patient diary associated with atrial fibrillation with rapid ventricular response. * Overall, atrial fibrillation with less than optimal rate control. MTDD
== END ==
LOC: HO.CARD 11:33
PROVIDERS: PCP Internal Medicine; Visit Provider Nurse Practitioner Family
DX: I48.20 Chronic atrial fibrillation, unspecified (principal)
CPT/HCPCS: 93242

== ENCOUNTER → 2024-06-14 11:37 | Outpatient (BNV) | payer MEDICARE, BC, SELFPAY | PROVIDERS: PCP Internal Medicine; Visit Provider Internal Medicine | DX: I48.91 Unspecified atrial fibrillation (principal) | CPT/HCPCS: 93244 ==

== ENCOUNTER 2024-06-15 13:20 | Outpatient (AMB) | payer MEDICARE, BC, SELFPAY ==
--- NOTE | 2024-06-15 13:35 | A.OFFVIS_ITS ---
Vital Signs 06/15/24 13:41 Height 5 ft 3 in Weight 237 lb BMI 42.0 BP 117/93 H Blood Pressure Location Rt brachial Position Sitting Pulse 93 Intake Visit Reasons: 6 month follow up Intake Note: Bianca returns to in office today in follow up of IBS. CC: Patient reports that she has been having blood in her urine on and off and she is scheduled for a procedure with Dr. Valadez Patient states that she is doing better from GI standpoint still having loose stools but not as bad as before. Slitter Cut Off Operator Required: No Accompanied by: Spouse Allergies aspirin [ASA] Allergy (Intermediate, Verified 07/06/24 03:08) GI PAIN, upset stomach hazelnut Allergy (Unknown, Verified 07/06/24 03:08) Unknown shellfish derived Allergy (Unknown, Verified 07/06/24 03:08) Unknown divalproex sodium [From Depakote] Allergy (Verified 07/06/24 03:08) diarrhea, brain fog gluten Allergy (Verified 07/06/24 03:08) Unknown sesame seeds Allergy (Unknown, Uncoded 07/06/24 03:08) Unknown HPI HPI 6 month follow up: Details: Assessment & Plan (1) Irritable bowel syndrome with diarrhea: Code(s): K58.0 - Irritable bowel syndrome with diarrhea (2) Pre-syncope: Code(s): R55 - Syncope and collapse (3) Celiac disease: Code(s): K90.0 - Celiac disease (4) Shellfish allergy: Code(s): Z91.013 - Allergy to seafood Plan She is here today with her who is supportive. After all of this, the root cause of her GI problems was her depakote! Now, with the Viberzi, she is having daily, formed stools. She is now doing well on her Viberzi. The only problem was with eating scallops because she is allergic to shellfish and they were not aware that scallops are shellfish. She is off of all mood drugs except Trazodone, and she is sleeping a lot - but also is going to PT which is tiring. She is getting stronger and now can actually get up out of the chair. She has lost 20 lbs, but she is now eating again despite trying to work around her Celiac disease. She has been eating sourdough bread in am w/o problem related to her celiac REFILL VIBERZI ROV 6 mos TODAY'S VISIT She is here with her who is supportive She has a new health problem of gross hematuria, she is seeing urology and she has a growth in her bladder and may have it removed. She is doing very well on her viberzi bid and her diarrhea is controlled, She has more gas. She is contending with persistent afib that did not respond to cardioversion or amiodarone. She is currently wearing a holter monitor. RENEW VIBERZI. Return office visit in 6 months [facility] Medical History Bilateral dacryocystitis Fall Frequency of urination Gait instability UTI (urinary tract infection) Pre-syncope Irritable bowel syndrome with diarrhea Chronic atrial fibrillation Paroxysmal atrial fibrillation C. difficile colitis Morbid obesity due to excess calories Non-insulin dependent type 2 diabetes mellitus Weakness Leg edema Bipolar 1 disorder Vertigo PTSD (post-traumatic stress disorder) History of cardioversion Arthritis Hypothyroidism History of wheezing Diabetes mellitus HTN (hypertension) LBBB (left bundle branch block) PAF (paroxysmal atrial fibrillation) Surgical History History of cardiac radiofrequency ablation History of eye surgery Hx of section Hx of colonoscopy Hx of cholecystectomy Hx of arthroscopy of right knee Family History Father No problems noted. Mother No problems noted. Other Mental health disorder Substance use disorder Social History Household Members: Spouse and Family Household Members Other:: daughter + Housing: House Do you presently have visiting nurse or other home services: No Alcohol intake: former Comment: feels safe and has a lift at home Patient Tobacco Use Status: Former Tobacco user e-Cigarette/Vaping Use: Never Used Second Hand Smoke Exposure: No Advance Directives Date on File: 06/29/23 service: No Current occupational status: employed Sexual orientation: Straight/Heterosexual Cognitive needs: No Hearing needs: No Vision needs: Yes Review of Systems Const Denies fatigue, Denies fever(s), Denies night sweats, Denies poor appetite and Denies weight loss ENT Reports Normal hearing present, Denies dental pain, Denies dysphagia, Denies hearing loss, Denies mouth pain, Denies odynophagia, Denies throat swelling, Denies tongue swelling and Reports other (Dentition adequate) Card Reports no additional complaints Resp Reports no additional complaints GI Details: Denies abdominal pain, Denies melena, Denies bloating, Denies hematochezia, Denies constipation, Denies GI cramping, Denies dysphagia, Denies excessive flatus, Denies early satiety, Reports heartburn, Reports diarrhea, Denies nausea, Denies odynophagia, Denies vomiting and Denies hematemesis Skin/Breast Denies pruritus, Denies lesions, Denies rash and Denies jaundice Neuro Reports Normal hearing present and Denies Abnormal speech present Endo Denies fatigue Aller/Immun Denies throat swelling and Denies tongue swelling Physical Exam Vital Signs: Last Vital Signs Pulse 93 06/15/24 13:41 BP 117/93 H 06/15/24 13:41 BMI result Body Mass Index 42.0 Const General: cooperative, no acute distress, well developed and well groomed Nutritional Appearance: well nourished and obese Orientation/consciousness: oriented to person, oriented to place and oriented to time Limitations: No language barrier and wheelchair HEENT Head: Yes normocephalic and Yes atraumatic Eyes General: appearance normal, both eyes and all related structures Pupils: Equal, round and reactive pupils present Neck Neck: Yes normal visual inspection and Yes no lymphadenopathy Thyroid: Thyroid normal Resp Effort & Inspection: normal respiratory effort and able to speak in complete sentences Auscultation: clear to auscultation bilaterally Cardio Rate: regular rate Rhythm: regular rhythm Heart sounds: Normal, physiologic split S2 sound present Peripheral pulses: radial pulses present and posterior tibial pulses present GI Inspection: No distended, Yes Abdominal panniculus present and Yes obesity Palpation (GI): Soft to palpation, nontender, no guarding, not rigid and No hepatosplenomegaly present Percussion: Yes normal to percussion Auscultation: normal bowel sounds Rectal Exam - Female: deferred Skin General skin exam: no rashes or lesions noted, turgor normal, skin not dry, no jaundice, No spider nevi and no striae Rashes: no rashes Nails: normal Neuro General: oriented to person, oriented to place and oriented to time Cranial nerves: Yes Equal, round and reactive pupils present and Yes Normal hearing present Speech: No Abnormal speech present Extrem General: Yes normal to inspection, No clubbing, No cyanosis and No edema Psych Appearance: grossly normal and well kempt Mental Status: mental status grossly normal Speech and movement: Normal speech and movement present Affect: normal affect Attitude: cooperative Thought process: Normal thought process present and not confabulating Thought content: Normal thought content present Insight: Limited insight present (Psych) Judgement: Limited judgement present (Psych) Assessment & Plan Assessment & Plan (1) Irritable bowel syndrome with diarrhea: Code(s): K58.0 - Irritable bowel syndrome with diarrhea Category: Medical (2) Celiac disease: Code(s): K90.0 - Celiac disease Category: Medical Plan She is here with her who is supportive She has a new health problem of gross hematuria, she is seeing urology and she has a growth in her bladder and may have it removed. She is doing very well on her viberzi bid and her diarrhea is controlled, She has more gas. She is contending with persistent afib that did not respond to cardioversion or amiodarone. She is currently wearing a holter monitor. RENEW VIBERZI. Return office visit in 6 months Medications: Refilled cholecalciferol (vitamin D3) 25 mcg PO DAILY 90 caps 0RF 90 days Coding Level of Care Code Est Pt Level 3 (84140) Diagnoses Irritable bowel syndrome with diarrhea K58.0 Celiac disease K90.0
[2024-06-15 13:41] VITALS: BP 117/93; PULSE 93; BMI 42.0
== END 2024-06-15 14:15 | disposition home or self-care (01) ==
PROVIDERS: PCP Internal Medicine; Visit Provider Nurse Practitioner
DX: K58.0 Irritable bowel syndrome with diarrhea (principal); K90.0 Celiac disease
CPT/HCPCS: 99213

== ENCOUNTER → 2024-06-15 13:20 | Outpatient (BNVA) | payer MEDICARE, BC, SELFPAY | PROVIDERS: PCP Internal Medicine; Visit Provider Nurse Practitioner | DX: K58.0 Irritable bowel syndrome with diarrhea (principal); R55 Syncope and collapse; K90.0 Celiac disease; Z91.013 Allergy to seafood | CPT/HCPCS: 99212 ==

== ENCOUNTER 2024-06-26 09:42 | Day surgery (SDC) | payer MEDICARE, BC, SELFPAY ==
[2024-06-22 14:24] VITALS: BMI 40.9
[2024-06-26 10:04] VITALS: BMI 41.6
[2024-06-26 10:22] VITALS: BP 125/89; PULSE 105; RESP 16; TEMP 36.2; O2SAT 94
--- NOTE | 2024-06-26 10:47 | HO.ANESPROP2 ---
HPI - Anesthesia Eval Consult details Narrative: for cysto TuRB PMFSH Active Problems Active Problems: All Active Problems Gross hematuria (Acute) Chronic anticoagulation (Acute) Recurrent UTI (Acute) Dysuria (Acute) Vitamin D deficiency (Acute) Non-celiac gluten sensitivity (Acute) Shellfish allergy (Acute) Irritable bowel syndrome with diarrhea (Acute) Chronic atrial fibrillation (Acute) Gait disturbance (Acute) Leg weakness, bilateral (Acute) Bipolar 1 disorder (Acute) Syncope (Acute) Weakness (Acute) Atrial fibrillation (Acute) Multiple food allergies (Acute) Celiac disease (Acute) Recurrent falls (Acute) Rectal incontinence (Acute) Psychiatric illness (Acute) Difficulty walking (Acute) Osteoarthritis of left hip (Acute) Coarse tremors (Acute) Difficulty sleeping (Acute) PTSD (post-traumatic stress disorder) (Acute) Bipolar 1 disorder, manic, moderate (Acute) Prolonged QT interval (Acute) Vertigo (Acute) Dacryadenitis, acute (Acute) Other specified hypothyroidism (Acute) Diastolic dysfunction with chronic heart failure (Acute) Atrial flutter (Acute) LBBB (left bundle branch block) (Acute) HTN (hypertension) (Acute) Diabetes mellitus (Acute) Past Medical History Medical History Bilateral dacryocystitis Fall Frequency of urination Gait instability UTI (urinary tract infection) Pre-syncope Irritable bowel syndrome with diarrhea Chronic atrial fibrillation Paroxysmal atrial fibrillation C. difficile colitis Morbid obesity due to excess calories Non-insulin dependent type 2 diabetes mellitus Weakness Leg edema Bipolar 1 disorder Vertigo PTSD (post-traumatic stress disorder) History of cardioversion Arthritis Hypothyroidism History of wheezing Diabetes mellitus HTN (hypertension) LBBB (left bundle branch block) PAF (paroxysmal atrial fibrillation) Family History Family History Father No problems noted. Mother No problems noted. Other Mental health disorder Substance use disorder Family history of problems with anesthesia: No Surgical History Surgical History History of cardiac radiofrequency ablation History of eye surgery Hx of section Hx of colonoscopy Hx of cholecystectomy Hx of arthroscopy of right knee History of Problems with Anesthesia: No Social History Social History Household Members: Spouse and Children Household Members Other:: daughter + Housing: House Do you presently have visiting nurse or other home services: Yes Alcohol intake: former Comment: feels safe and has a lift at home Patient Tobacco Use Status: Former Tobacco user e-Cigarette/Vaping Use: Never Used Second Hand Smoke Exposure: No Use of substances other than those prescribed or required for medical reasons: No Are you DNR?: No Advance Directives: No Advance Directives Information Provided: Yes Advance Directives Date on File: 06/29/23 service: No Current occupational status: employed Sexual orientation: Straight/Heterosexual Cognitive needs: No Hearing needs: No Vision needs: Yes Meds Allergies Allergy/AdvReac Type Severity Reaction Status Date / Time aspirin [ASA] Allergy Intermediate GI PAIN, Verified 06/26/24 10:03 upset stomach hazelnut Allergy Unknown Unknown Verified 06/26/24 10:03 shellfish derived Allergy Unknown Unknown Verified 06/26/24 10:03 divalproex sodium Allergy diarrhea, Verified 06/26/24 10:03 [From Depakote] brain fog gluten Allergy Unknown Verified 06/26/24 10:03 sesame seeds Allergy Unknown Unknown Uncoded 06/08/24 10:28 Active Medications: Current Medications Lactated Ringer's (Lr) 1,000 mls @ 80 mls/hr IVCONT .[id number] SELMA Home Medications ?Medication ?Instructions ?Recorded ?Confirmed ?Last Taken ?Type trazodone 150 mg tablet 220 mg PO BEDTIME 12/16/23 06/26/24 Unknown History Exam Height,Weight and Vital Signs: Height 5 ft 3 in Weight 106.594 kg Last Vital Signs Temp 97.1 F 06/26/24 10:22 Pulse 105 H 06/26/24 10:22 Resp 16 06/26/24 10:22 BP 125/89 06/26/24 10:22 Pulse Ox 94 06/26/24 10:22 O2 Del Method Room Air 06/26/24 10:22 Airway Mallampati Class: II TM Dist: >3cm Neck ROM: Limited Heart: a fib Lungs: cta Assessment and Plan Assessment Anesthesia Assessment: Anesthesia Plan Discussed Final Anesthetic Review Family History of Problems with Anesthesia: No History of Problems with Anesthesia: No NPO: Yes ASA Class: III Final Preanesthetic Review: No Changes in Pt Med Stat, Meds/Allgs Chart Reviewed, Consent Obtained/Reviewed and Anes Risks/Benef Reviewed Patient Risk: Intermediate Procedure Risk: Low Anesthetic Plan Anesthetic Plan: GA Disposition: Standard PACU
--- NOTE | 2024-06-26 10:53 | MHC.SHP ---
Pre-Procedural Eval Section A - 24 Hr Update-Section A only Date of Service: 06/26/24 The patient is an INPATIENT: No The patient has been examined within 24 hours of the surgical procedure. The History & Physical has been completed within 30 days and I have reviewed it.: Yes Section B - Complete if H&P > 30 days Chief Complaint: Other specified disorders of bladder Allergies: Allergies Allergy/AdvReac Type Severity Reaction Status Date / Time aspirin [ASA] Allergy Intermediate GI PAIN, Verified 06/26/24 10:03 upset stomach hazelnut Allergy Unknown Unknown Verified 06/26/24 10:03 shellfish derived Allergy Unknown Unknown Verified 06/26/24 10:03 divalproex sodium Allergy diarrhea, Verified 06/26/24 10:03 [From Depakote] brain fog gluten Allergy Unknown Verified 06/26/24 10:03 sesame seeds Allergy Unknown Unknown Uncoded 06/08/24 10:28 Plan Diagnosis/Plan: Unchanged I have reviewed the history and physical and performed a pertinent physical examination on my patient. No changes have occurred unless specified. Cystoscopy Transurethral resection of bladder mass, and bladder biopsies. Cystoscopy. Discussed risks to include but not limited to, blood in the urine, burning with urination, urgency. De insertion. Time Spent With Patient Time: Total time managing care of this patient today ____ minutes.
[2024-06-26] MEDS: Lactated Ringers 1,000 ML 80 ML IVCONT (11:02)
[2024-06-26 11:04] LABS: Glucose, Whole Blood 168 mg/dL (60-115)
[2024-06-26 12:31] VITALS: BP 137/81; PULSE 98; RESP 14; TEMP 36.2; O2SAT 93
[2024-06-26 12:45] VITALS: BP 138/78; PULSE 91; RESP 16; O2SAT 97
[2024-06-26 13:06] VITALS: BP 144/73; PULSE 99; RESP 18; O2SAT 97
--- NOTE | 2024-07-03 12:50 | P.OP_ITS ---
Operative Note Operative Note Date of Service: 06/26/24 Narrative: PREOP DIAGNOSIS: Bladder Mass POSTOP DIAGNOSIS: Bladder mass PROCEDURE: Cystoscopy transurethral resection of bladder tumor, fulguration, bladder biopsies Anesthesia: General Surgeon Dr. Mariano Sanchez Findings: Bladder mass right lateral wall and erythematous flattened lesions posterior wall > 5 cm. Details of procedure: The patient was brought into the operating room placed on the OR table in supine position. Antibiotics confirmed. General anesthesia was administered. The patient was repositioned into lithotomy position, prepped and draped in the usual sterile fashion. Time-out was done per protocol. 2 urojet placed. A 22 Nigerian cystoscope was passed transurethrally into the bladder. Visualization of the bladder noted a large papillary tumor right lateral wall encroaching on the bladder neck. Suspicious flattened erythematous lesion posterior wall and right lateral wall. The right ureteral orifice was not well visualized. The flexible biopsy forceps was used to obtain biopsies from the posterior wall and right lateral wall flattened erythematous lesions. Random bladder biopsy was taken from the left lateral wall. The 24 Nigerian resectoscope was passed transurethrally into the bladder. The biopsied area from the left lateral wall was cauterized. The loop resectoscope was used to resect the papillary bladder tumor located on the right lateral wall encroaching on the bladder neck, muscle was visualized without evidence of perforation, the loop and roller ball attachment was also used to fulgurate the base of the bladder tumor as well as fulgurate the erythematous flattened lesions noted on the posterior and right lateral wall. Once there was good hemostasis the resectoscope was removed. A De catheter 20 Nigerian placed transurethrally. The patient was brought out of anesthesia and taken to recovery in stable condition. Complications: None Drains: 20 Nigerian De catheter 10 mL sterile water in the balloon
== END 2024-06-26 14:31 | disposition home or self-care (01) ==
PROVIDERS: PCP Internal Medicine; Visit Provider Urology
PROC: 0TJB8ZZ Inspection of Bladder, Via Natural or Artificial Opening Endoscopic (ICD-10-PCS; CPT 52000; principal; 2024-06-26 11:30)
DX: C67.9 Malignant neoplasm of bladder, unspecified (principal); N39.0 Urinary tract infection, site not specified; R31.0 Gross hematuria; I48.0 Paroxysmal atrial fibrillation; I44.7 Left bundle-branch block, unspecified; I10 Essential (primary) hypertension; E11.9 Type 2 diabetes mellitus without complications; K58.0 Irritable bowel syndrome with diarrhea; Z79.01 Long term (current) use of anticoagulants; Z88.8 Allergy status to other drugs, medicaments and biological substances; Z98.890 Other specified postprocedural states; Z87.891 Personal history of nicotine dependence
CPT/HCPCS: 52235; 82947; 87086; 88305; 88307; J0690; J2704; J3010

== ENCOUNTER → 2024-06-26 09:42 | Outpatient (BNV) | payer MEDICARE, BC, SELFPAY | PROVIDERS: PCP Internal Medicine; Visit Provider Urology | DX: C67.8 Malignant neoplasm of overlapping sites of bladder (principal) | CPT/HCPCS: 52240 ==

== ENCOUNTER → 2024-06-29 13:19 | Outpatient (BNVA) | payer MEDICARE, BC, SELFPAY | PROVIDERS: PCP Internal Medicine; Visit Provider Urology ==

== ENCOUNTER 2024-07-05 15:20 | Outpatient (REF) | payer MEDICARE, BC, SELFPAY ==
[2024-07-05 16:43] LABS: Appearance Urine Turbid; Glucose Urine UA 100 mg/dL (Negative); Leukocyte Esterase Urine Negative (Negative); Nitrite Urine Positive (Negative); Specific Gravity - Urine 1.025 (1.005-1.025); UMIC TRIGGER UA YES; Urine Blood Large (3+) (Negative); Urine Ketones Trace mg/dL (Negative); Urine Protein 300 (3+) mg/dL (Neg-Trace)
[2024-07-05 16:52] LABS: Color Urine RED
[2024-07-05 16:53] LABS: Bacteria Urine None Seen (None Seen); Hyaline Casts Urine 0-2 /LPF (0-2); RBC Urine >20 /HPF (0-2); Squamous Epithelial Cell Urine 0-2 /HPF (0-2); WBC Urine 0-5 /HPF (0-5)
== END 2024-07-05 15:21 | disposition home or self-care (01) ==
LOC: HO.LAB 15:20
PROVIDERS: PCP Internal Medicine; Visit Provider Urology
DX: Z13.89 Encounter for screening for other disorder (principal)
CPT/HCPCS: 81001; 87086

== ENCOUNTER 2024-07-06 02:38 | Inpatient (IN) | payer MEDICARE, BC, SELFPAY ==
[2024-07-06] VITALS (13 sets, daily range): BP systolic 90–135; BP diastolic 42–75; PULSE 63–104; RESP 11–18; TEMP 36.3–37.1; O2SAT 93–98; BMI 42.7
[2024-07-06 03:30] LABS: Basophils Absolute Auto 0.1 X10*3/uL (0.0-0.2); Eosinophils Absolute Auto 0.3 X10*3/uL (0.0-0.4); Eosinophils Percent Auto 3.8 % (0-4); Hematocrit 36.3 % (37.0-47.0); Hemoglobin 12.4 g/dl (12.0-16.0); Imm Gran Abs Auto 0.02 X10*3/uL (0.00-0.03); Imm Gran Pct Auto 0.3 % (0.0-0.4); Lymphocytes Absolute Auto 3.4 X10*3/uL (1.2-4.9); Lymphocytes Percent Auto 47.5 % (20-40); MANUAL DIFF FLAG NO; Mean Corpuscular HGB Conc 34.2 g/dl (31.0-35.0); Mean Corpuscular Volume 87.9 fL (80.0-98.0); Mean Platelet Volume 9.1 fL (9.4-12.3); Monocytes Absolute Auto 0.4 X10*3/uL (0.1-1.2); Monocytes Percent Auto 5.9 % (2-11); Neutrophils Percent Auto 41.5 % (45-73); Platelet Count 227 X10*3/uL (160-400); Red Blood Count 4.13 X10*6/uL (4.20-5.50); Red Cell Distribution Width 13.4 % (11.0-16.0); White Blood Count 7.1 X10*3/uL (4.8-10.8)
[2024-07-06 03:45] LABS: Anion Gap 17 (12-20)
[2024-07-06 03:46] LABS: Alanine Aminotransferase 13 U/L (0-31); Albumin Level 3.5 g/dL (3.5-5.0); Alkaline Phosphatase 79 U/L (39-117); Aspartate Amino Transferase 15 U/L (5-31); Bilirubin Direct < 0.1 mg/dL (0.0-0.5); Bilirubin Total 0.3 mg/dL (0.0-1.0); Blood Urea Nitrogen 15 mg/dL (9-16); Calcium 8.8 mg/dL (8.4-10.2); Carbon Dioxide 19 mmol/L (22-29); Chloride 107 mmol/L (96-108); Creatinine Clr Calc Pharmacy 68.2; Estimated Glomerular Filt Rate 59; Glucose Random 192 mg/dL (60-115); Lipase 41 U/L (8-78); Potassium 4.2 mmol/L (3.3-5.1); Sodium 139 mmol/L (135-145)
--- NOTE | 2024-07-06 04:22 | PC.NURSE ---
pt brought into ED room 16 from . pt reporting hematuria and blood clots since tuesday. Pt had recent bladder surgery done for tumor removal here by Dr. Valadez (06/26), then had the catheter removed 1 week ago (06/29). Pt has been having increased hematuria with blood clots noted in diaper, as if she is on a heavy menstrual period. also reporting intense lower abdominal cramping, 10/10 at worst, right now is 3/10 pain. pt had urine sample done yesterday outpatient lab. pt waiting to be seen by ED provider - in no apparent distress. call mena within reach, plan of care ongoing.
--- NOTE | 2024-07-06 06:51 | ED.FEMALEGU ---
HPI - Female Genitourinary General Chief complaint: Urogenital-Female Stated complaint: vag, bleeding- bladder surgery 06-26-24 Time Seen by Provider: 07/06/24 06:32 Source: patient Mode of arrival: ambulatory Limitations: no limitations History of Present Illness ED Provider: Tito Gruber PA-C HPI Narrative: 69 yo female with history of afib on Xarelto, history of bipolar disorder, PTSD, HFpEF, LBBB, HTN, vertigo, DM, history of a bladder mass s/p transuretral resection of bladder tumor on 06/[address] Valadez who presents to the ER for evaluation of worsening hematuria and intermittent pelvic pain that started 5-6 days ago and has been worsening. She stated immediately postoperatively she did very well. She was sent home with a De catheter for 3 days and had no bleeding. This was taken out 3 days after the procedure. She started have some hematuria over the weekend. She started her Xarelto back up earlier this week which made the bleeding worse. She started passing small to large sized clots. She reports before having the sensation to urinate she had severe pelvic pain with sensation of significant pressure prior to passing the clots. She denies any back pain, other abdominal pain, nausea, vomiting, diarrhea. No fevers or chills. MD elicited complaint: pelvic pain and other (Hematuria and passing clots) Pertinent past history: other (History of recent bladder surgery) Onset (ago): day(s) Location of symptoms: urethra Severity: severe Female Urogenital Radiation: Non-Radiating Quality of pain: sharp Consistency: intermittent Vaginal discharge: none Vaginal bleeding: heavy and clots Urinary symptoms: Hematuria Exacerbating factors: urination Relieving factors: none Associated symptoms: denies other symptoms Treatment prior to arrival: none Sexual activity: No Related Data Home Medications ?Medication ?Instructions ?Recorded ?Confirmed trazodone 150 mg tablet 220 mg PO BEDTIME 12/16/23 06/26/24 Previous Rx's ?Medication ?Instructions ?Recorded levothyroxine 150 mcg tablet 150 mcg PO DAILY for disorder of 02/16/24 thyroid gland 90 days #90 tabs eluxadoline 75 mg tablet (Viberzi) 75 mg PO BID #60 tabs 04/09/24 rivaroxaban 20 mg tablet (Xarelto) 20 mg PO QPM #90 tabs 05/29/24 cholecalciferol (vitamin D3) 25 25 mcg PO DAILY 90 days #90 caps 06/15/24 mcg (1,000 unit) capsule metoprolol tartrate 75 mg tablet 75 mg PO BID 90 days #180 tabs 06/25/24 phenazopyridine 99.5 mg tablet 99.5 mg PO TID 4 days #12 tabs 06/26/24 (Azo Urinary Pain Relief) Allergies Allergy/AdvReac Type Severity Reaction Status Date / Time aspirin [ASA] Allergy Intermediate GI PAIN, Verified 07/06/24 03:08 upset stomach hazelnut Allergy Unknown Unknown Verified 07/06/24 03:08 shellfish derived Allergy Unknown Unknown Verified 07/06/24 03:08 divalproex sodium Allergy diarrhea, Verified 07/06/24 03:08 [From Depakote] brain fog gluten Allergy Unknown Verified 07/06/24 03:08 sesame seeds Allergy Unknown Unknown Uncoded 07/06/24 03:08 Review of Systems Review of Systems: Yes all other systems are reviewed and are negative PMFSH Past Medical History Medical History Bilateral dacryocystitis Fall Frequency of urination Gait instability UTI (urinary tract infection) Pre-syncope Irritable bowel syndrome with diarrhea Chronic atrial fibrillation Paroxysmal atrial fibrillation C. difficile colitis Morbid obesity due to excess calories Non-insulin dependent type 2 diabetes mellitus Weakness Leg edema Bipolar 1 disorder Vertigo PTSD (post-traumatic stress disorder) History of cardioversion Arthritis Hypothyroidism History of wheezing Diabetes mellitus HTN (hypertension) LBBB (left bundle branch block) PAF (paroxysmal atrial fibrillation) Surgical History History of cardiac radiofrequency ablation History of eye surgery Hx of section Hx of colonoscopy Hx of cholecystectomy Hx of arthroscopy of right knee Family History Family History Father No problems noted. Mother No problems noted. Other Mental health disorder Substance use disorder Social History Social History Household Members: Spouse and Children Household Members Other:: daughter + Housing: House Do you presently have visiting nurse or other home services: Yes Alcohol intake: former Comment: feels safe and has a lift at home Patient Tobacco Use Status: Former Tobacco user Smoked in Last 30 Days: No e-Cigarette/Vaping Use: Never Used Second Hand Smoke Exposure: No Use of substances other than those prescribed or required for medical reasons: No Advance Directives: Yes Advance Directives on File: Yes Advance Directives Date on File: 06/29/23 Do you have a plan to hurt others: No Plan service: No Current occupational status: employed Sexual orientation: Straight/Heterosexual Cognitive needs: No Hearing needs: No Vision needs: Yes Physical Exam Vital Signs: Vital Signs: Last Vital Signs Temp 98 F 07/06/24 09:01 Pulse 68 07/06/24 10:59 Resp 11 L 07/06/24 10:59 BP 99/42 L 07/06/24 10:59 Pulse Ox 97 07/06/24 10:59 O2 Del Method Room Air 07/06/24 10:59 BMI result Body Mass Index 42.7 Appearance: Alert. Oriented X3. No acute distress. Head: normocephalic, atraumatic. Eyes: Pupils equal, round and reactive to light. ENT: Pharynx normal. No tonsillar swelling or exudate. Neck: Normal inspection. Neck supple. CVS: Irregularly irregular, rate in the 70s Pulses normal. Respiratory: No respiratory distress. Breath sounds normal. Abdomen: Soft and nontender. +BS x4 : dried blood on external genitalia, large amount of blood in her Depends, no clots. normal inspection of the urethreal meatus Skin: Skin warm and dry. Normal skin color. Normal skin turgor. No rashes. Extremities: No lower extremity edema. No joint swelling. Neuro/psych: Oriented X 3. No motor deficit. No sensory deficit. CN II-XII intact. Normal speech and cognition. Medications Administered Discontinued Medications Generic Name Dose Route Start Last Admin Trade Name Freq PRN Reason Stop Dose Admin Sodium Chloride 1,000 mls @ 999 mls/hr 07/06/24 09:00 07/06/24 10:04 Ns IVCONT 07/06/24 10:00 999 mls/hr .Q1H1M SELMA Administration Ceftriaxone Sodium 1 gm/ 50 mls @ 100 mls/hr 07/06/24 09:59 07/06/24 10:57 Sodium Chloride IV 07/06/24 10:28 100 mls/hr ONCE ONE Administration Medical Decision Making Medical Decision Making [facility] Narrative: 69-year-old female with history of AFib on Xarelto, history of bladder mass that was recently resected by Dr. Hernandez on June 26 presents to the ER for evaluation of worsening hematuria and pelvic pain with passing of large blood clots after reinitiating her Xarelto earlier this week. On arrival to the ER patient is hemodynamically stable. Her lab workup shows a stable hemoglobin of 12.4 and hematocrit of 36.3. Her baseline H&H from February is around 13/39. She is actively bleeding with moderate amount of bright red blood in her depends. repeat h/h showing a drop from 12.4/36.3 to 11.3/33.2. BP is soft but stable, orthostatics are negative. type and screen sent. consulted Dr. Valadez via TT who recommend initiation of continuous bladder irrigation, hand irrigating initially, irrigating very slowly. Three-way catheter was placed successfully and 250 cc were manually irrigated with 1 large clot initially, ongoing red urine but no further clots. Urinalysis is positive for nitrates both today and yesterday. Urine culture from yesterday is still pending. She has no other signs of infection her urinalysis. She is not have any leukocytosis, fevers, tachycardia or signs of sepsis at this time. Will empirically cover with 1 dose of Rocephin for now while awaiting urine culture. She was hooked up to continuous bladder irrigation and will be admitted to the hospital for further management. Differential Diagnosis Differential Diagnoses: The differential diagnosis associated with the presentation includes Bleeding in the bladder from the biopsy sites or mass excision site, UTI, cystitis, Admission/Observation Consideration of admission/observation: Escalation of care including admission/observation considered Consult Healthcare Provider Management of the patient was discussed with: Hospitalist and Personnel Representative Dr. Valadez from Urology Lab Data [facility] Lab Attestation statement: I reviewed the patient's lab results. 07/06/24 08:55 07/06/24 03:24 Labs: Lab Results 07/06/24 07/06/24 07/06/24 Range/Units 03:24 08:55 08:56 WBC 7.1 (4.8-10.8) X10*3/uL RBC 4.13 L (4.20-5.50) X10*6/uL Hgb 12.4 11.3 L (12.0-16.0) g/dl Hct 36.3 L 33.2 L (37.0-47.0) % MCV 87.9 (80.0-98.0) fL MCH 30.0 (27.0-33.0) pg MCHC 34.2 (31.0-35.0) g/dl RDW 13.4 (11.0-16.0) % Plt Count 227 (160-400) X10*3/uL MPV 9.1 L (9.4-12.3) fL Immature Gran % (Auto) 0.3 (0.0-0.4) % Neut % (Auto) 41.5 L (45-73) % Lymph % (Auto) 47.5 H (20-40) % Jefferson % (Auto) 5.9 (2-11) % Eos % (Auto) 3.8 (0-4) % Baso % (Auto) 1.0 (0-2) % Lymph # (Auto) 3.4 (1.2-4.9) X10*3/uL Jefferson # (Auto) 0.4 (0.1-1.2) X10*3/uL Eos # (Auto) 0.3 (0.0-0.4) X10*3/uL Baso # (Auto) 0.1 (0.0-0.2) X10*3/uL Abs Immat Gran (auto) 0.02 (0.00-0.03) X10*3/uL Absolute Neuts (auto) 3.0 (2.0-8.3) x10*3/uL Absolute Nucleated RBC 0.000 (0.0-0.012) X10*3/uL Nucleated RBC % (auto) 0.0 (0.0-0.2) /100WBC Hold Blue Top SEE NOTE Sodium 139 (135-145) mmol/L Potassium 4.2 (3.3-5.1) mmol/L Chloride 107 (96-108) mmol/L Carbon Dioxide 19 L (22-29) mmol/L Anion Gap 17 (12-20) BUN 15 (9-16) mg/dL Creatinine 0.95 (0.5-1.4) mg/dL Estim Creat Clear Calc 68.2 Estimated GFR 59 Random Glucose 192 H (60-115) mg/dL Lactic Acid (0.5-2.0) mmol/L Calcium 8.8 (8.4-10.2) mg/dL Total Bilirubin 0.3 (0.0-1.0) mg/dL Direct Bilirubin < 0.1 (0.0-0.5) mg/dL AST 15 (5-31) U/L ALT 13 (0-31) U/L Alkaline Phosphatase 79 (39-117) U/L Total Protein 7.0 (6.5-8.0) g/dL Albumin 3.5 (3.5-5.0) g/dL Lipase 41 (8-78) U/L Urine Color RED Urine Appearance Turbid Urine pH 7.5 (5.0-9.0) Ur Specific Henderson 1.020 (1.005-1.025) Urine Protein 300 (3+) H (Neg-Trace) mg/dL Urine Glucose (UA) 250 H (Negative) mg/dL Urine Ketones Negative (Negative) mg/dL Urine Blood Large (3+) H (Negative) Urine Nitrite Positive H (Negative) Ur Leukocyte Esterase Trace H (Negative) Urine RBC >20 H (0-2) /HPF Urine WBC 0-5 (0-5) /HPF Ur Squamous Epith Cells 0-2 (0-2) /HPF Urine Bacteria None Seen (None Seen) Hyaline Casts 0-2 (0-2) /LPF Blood Type A Negative Antibody Screen NEGATIVE 07/06/24 Range/Units 10:26 WBC (4.8-10.8) X10*3/uL RBC (4.20-5.50) X10*6/uL Hgb (12.0-16.0) g/dl Hct (37.0-47.0) % MCV (80.0-98.0) fL MCH (27.0-33.0) pg MCHC (31.0-35.0) g/dl RDW (11.0-16.0) % Plt Count (160-400) X10*3/uL MPV (9.4-12.3) fL Immature Gran % (Auto) (0.0-0.4) % Neut % (Auto) (45-73) % Lymph % (Auto) (20-40) % Jefferson % (Auto) (2-11) % Eos % (Auto) (0-4) % Baso % (Auto) (0-2) % Lymph # (Auto) (1.2-4.9) X10*3/uL Jefferson # (Auto) (0.1-1.2) X10*3/uL Eos # (Auto) (0.0-0.4) X10*3/uL Baso # (Auto) (0.0-0.2) X10*3/uL Abs Immat Gran (auto) (0.00-0.03) X10*3/uL Absolute Neuts (auto) (2.0-8.3) x10*3/uL Absolute Nucleated RBC (0.0-0.012) X10*3/uL Nucleated RBC % (auto) (0.0-0.2) /100WBC Hold Blue Top Sodium (135-145) mmol/L Potassium (3.3-5.1) mmol/L Chloride (96-108) mmol/L Carbon Dioxide (22-29) mmol/L Anion Gap (12-20) BUN (9-16) mg/dL Creatinine (0.5-1.4) mg/dL Estim Creat Clear Calc Estimated GFR Random Glucose (60-115) mg/dL Lactic Acid 2.9 H* (0.5-2.0) mmol/L Calcium (8.4-10.2) mg/dL Total Bilirubin (0.0-1.0) mg/dL Direct Bilirubin (0.0-0.5) mg/dL AST (5-31) U/L ALT (0-31) U/L Alkaline Phosphatase (39-117) U/L Total Protein (6.5-8.0) g/dL Albumin (3.5-5.0) g/dL Lipase (8-78) U/L Urine Color Urine Appearance Urine pH (5.0-9.0) Ur Specific Henderson (1.005-1.025) Urine Protein (Neg-Trace) mg/dL Urine Glucose (UA) (Negative) mg/dL Urine Ketones (Negative) mg/dL Urine Blood (Negative) Urine Nitrite (Negative) Ur Leukocyte Esterase (Negative) Urine RBC (0-2) /HPF Urine WBC (0-5) /HPF Ur Squamous Epith Cells (0-2) /HPF Urine Bacteria (None Seen) Hyaline Casts (0-2) /LPF Blood Type Antibody Screen Independent Interpretation I performed an independent interpretation of an: EKG Interpretation: EKG with normal sinus rhythm, PACs present, ventricular rate 64 beats per minute, incomplete left bundle-branch block Independent Historian Clinical information obtained from an independent historian. History obtained from or confirmed by: Spouse External Record Review External record reviewed: Office record, Outpatient record, Prior outpatient labs and Prior outpatient radiology Prescription Management I considered prescription management with: Pain Medication and Antibiotic Chronic Conditions Patient?s care impacted by: Other (afib on xarelto) Critical Care Time Critical Care Time Critical Care Time: Yes Total Critical Care Time: 44 Attestation: I have personally provided critical care time exclusive of time spent on separately billable procedures. Time includes review of lab data, radiology results, discussion with consultants, and monitoring for potential decompensation. Intervention performed as documented. Discharge Plan Discharge Clinical Impression: Gross hematuria, Acute blood loss anemia Patient Disposition: Admitted As Inpatient Print Language: Kinyarwanda
[2024-07-06 09:06] LABS: Hematocrit 33.2 % (37.0-47.0); Hemoglobin 11.3 g/dl (12.0-16.0)
[2024-07-06 09:19] LABS: Appearance Urine Turbid; Glucose Urine UA 250 mg/dL (Negative); Leukocyte Esterase Urine Trace (Negative); Nitrite Urine Positive (Negative); PH 7.5 (5.0-9.0); UMIC TRIGGER UACC YES; Urine Blood Large (3+) (Negative); Urine Ketones Negative (Negative); Urine Protein 300 (3+) mg/dL (Neg-Trace)
[2024-07-06 09:23] LABS: Color Urine RED
[2024-07-06 09:24] LABS: Bacteria Urine None Seen (None Seen); Hyaline Casts Urine 0-2 /LPF (0-2); RBC Urine >20 /HPF (0-2); Squamous Epithelial Cell Urine 0-2 /HPF (0-2); UACC Culture Trigger YES; WBC Urine 0-5 /HPF (0-5)
[2024-07-06] MEDS: 0.9 % Sodium Chloride 1,000 ML 999 ML IVCONT (10:04)
--- NOTE | 2024-07-06 10:26 | ECG_ITS ---
Test Reason : afib Blood Pressure : / mmHG Vent. Rate : 064 BPM Atrial Rate : 064 BPM P-R Int : 196 ms QRS Dur : 116 ms QT Int : 478 ms P-R-T Axes : 075 -27 135 degrees QTc Int : 493 ms Sinus rhythm with Premature atrial complexes Low voltage QRS Incomplete left bundle branch block ST & T wave abnormality, consider lateral ischemia Abnormal ECG When compared with ECG of 11-OCT-2023 09:09, Sinus rhythm has replaced Atrial fibrillation Vent. rate has decreased BY 53 BPM Referred By: Fernanda Gruber Electronically Signed By:FERDINAND MELÉNDEZ
[2024-07-06 10:54] LABS: Lactic Acid 2.9 mmol/L (0.5-2.0)
[2024-07-06] MEDS: cefTRIAXone sodium 1 GM in 0.9 % Sodium Chloride 50 ML IV (10:57)
--- NOTE | 2024-07-06 11:26 | PM.IMHP ---
History of Present Illness Date of Service: 07/06/24 Attending physician on admission: Panchito Galdamez Chief Complaint: Hematuria Pt is a 69-year-old female with a PMH significant for?HTN, paroxysmal AFib on Xarelto, hypothyroidism, recurrent UTIs, IBS, celiac disease, recent removal of bladder mass, and bipolar disorder who presents to the ED with?hematuria with clots x3 days. Pt recently had a bladder mass removed by Dr. Sanchez in [place] [facility] [place]. 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 Initially did well postoperatively. Had De catheter in place procedure day without bleeding. Once removed patient resumed using her home PurWick at night. Noticed intermittent, small amount of blood in urine during the weekend. She had stopped her Xarelto 4 days prior to procedure and then restarted on Friday 06/01. On Tuesday pt began noticing an increasing amount of blood in her urine with clots, which continued to worsen over the next few days to the point it was clogging the PureWick and turned it black . Reports minor abdominal discomfort but denies edinson pain. Has been having increased burning with urination for the past week. In the ED pt with elevated HR of 97, and soft BP as low as 90/48. Labs were significant for initial H&H 12.4/36.3 with repeat 11.3/33.2, and lactic acid 2.9. UA positive for protein, glucose, blood, nitrites, trace leukocyte esterase, but negative for wbc's bacteria EKG demonstrated sinus rhythm with PACs T-wave inversions in V1 V2 and V3. In the ED pt was started on CBI and treated with ceftriaxone. Pt will be admitted to the hospital for treatment and further evaluation of gross hematuria with clots. Review of Systems Review of Systems: Gross hematuria with clots, worsening x3 days Minor abdominal discomfort Dysuria Denies fever, chills, nausea, vomiting No chest pain/pressure, palpitations Denies shortness of breath or difficulty breathing No lightheadedness or dizziness [facility] Medical History Bilateral dacryocystitis Fall Frequency of urination Gait instability UTI (urinary tract infection) Pre-syncope Irritable bowel syndrome with diarrhea Chronic atrial fibrillation Paroxysmal atrial fibrillation C. difficile colitis Morbid obesity due to excess calories Non-insulin dependent type 2 diabetes mellitus Weakness Leg edema Bipolar 1 disorder Vertigo PTSD (post-traumatic stress disorder) History of cardioversion Arthritis Hypothyroidism History of wheezing Diabetes mellitus HTN (hypertension) LBBB (left bundle branch block) PAF (paroxysmal atrial fibrillation) Family History Father No problems noted. Mother No problems noted. Other Mental health disorder Substance use disorder Surgical History History of cardiac radiofrequency ablation History of eye surgery Hx of section Hx of colonoscopy Hx of cholecystectomy Hx of arthroscopy of right knee Social History Household Members: Spouse and Children Household Members Other:: daughter + Housing: House Do you presently have visiting nurse or other home services: Yes Alcohol intake: former Comment: feels safe and has a lift at home Patient Tobacco Use Status: Former Tobacco user e-Cigarette/Vaping Use: Never Used Second Hand Smoke Exposure: No Advance Directives Date on File: 06/29/23 service: No Current occupational status: employed Sexual orientation: Straight/Heterosexual Cognitive needs: No Hearing needs: No Vision needs: Yes Meds Allergies Allergy/AdvReac Type Severity Reaction Status Date / Time aspirin [ASA] Allergy Intermediate GI PAIN, Verified 07/06/24 03:08 upset stomach hazelnut Allergy Unknown Unknown Verified 07/06/24 03:08 shellfish derived Allergy Unknown Unknown Verified 07/06/24 03:08 divalproex sodium Allergy diarrhea, Verified 07/06/24 03:08 [From Depakote] brain fog gluten Allergy Unknown Verified 07/06/24 03:08 sesame seeds Allergy Unknown Unknown Uncoded 07/06/24 03:08 Home Medications ?Medication ?Instructions ?Recorded ?Confirmed ?Last Taken ?Type trazodone 150 mg tablet 220 mg PO BEDTIME 12/16/23 07/06/24 07/05/24 History acetaminophen 500 mg tablet 1,000 mg PO DAILY PRN Pain 07/06/24 07/06/24 Unknown History levothyroxine 150 mcg tablet 150 mcg PO DAILY@0600 for disorder 07/06/24 07/06/24 07/05/24 History of thyroid gland rivaroxaban 20 mg tablet (Xarelto) 20 mg PO QPM 07/06/24 07/06/24 07/05/24 History Physical Exam Vital Signs and Narrative: Vital Signs: Last Vital Signs Temp 98 F 07/06/24 09:01 Pulse 68 07/06/24 10:59 Resp 11 L 07/06/24 10:59 BP 99/42 L 07/06/24 10:59 Pulse Ox 97 07/06/24 10:59 O2 Del Method Room Air 07/06/24 10:59 BMI result Body Mass Index 42.7 Constitutional: Alert, in no acute distress. Mental Status: Oriented to person, place and time. Eyes: Pupils are equal, round, and reactive to light. Ear, Nose, and Throat: Oropharynx clear, mucous membranes moist. Ears and nose without deformities. Trachea midline. Respiratory: Clear to auscultation bilaterally. No wheezing, rales, or rhonchi. Cardiovascular: Irregularly irregular rhythm, no murmurs, gallops, or rubs. Gastrointestinal: Abdomen soft, non-tender, non-distended. Normal bowel sounds. Neurologic: Cranial nerves II-XII are grossly intact bilaterally. No focal neurological deficits. Moves all extremities spontaneously. : CBI in place with gross hematuria. Extremities: No edema. Psychiatric: Normal mood and affect. Results Labs 07/06/24 08:55 07/06/24 03:24 Labs: Laboratory Results - last 24 hr 07/06/24 07/06/24 07/06/24 03:24 08:55 08:56 MCV 87.9 MCH 30.0 MCHC 34.2 RDW 13.4 Plt Count 227 MPV 9.1 L Immature Gran % (Auto) 0.3 Neut % (Auto) 41.5 L Lymph % (Auto) 47.5 H Emmons % (Auto) 5.9 Eos % (Auto) 3.8 Baso % (Auto) 1.0 Lymph # (Auto) 3.4 Emmons # (Auto) 0.4 Eos # (Auto) 0.3 Baso # (Auto) 0.1 Abs Immat Gran (auto) 0.02 Absolute Neuts (auto) 3.0 Absolute Nucleated RBC 0.000 Nucleated RBC % (auto) 0.0 Hold Blue Top SEE NOTE Anion Gap 17 Estim Creat Clear Calc 68.2 Estimated GFR 59 Random Glucose 192 H Lactic Acid Calcium 8.8 Total Bilirubin 0.3 Direct Bilirubin < 0.1 AST 15 ALT 13 Alkaline Phosphatase 79 Total Protein 7.0 Albumin 3.5 Lipase 41 Urine Color RED Urine Appearance Turbid Urine pH 7.5 Ur Specific [place] 1.020 Urine Protein 300 (3+) H Urine Glucose (UA) 250 H Urine Ketones Negative Urine Blood Large (3+) H Urine Nitrite Positive H Ur Leukocyte Esterase Trace H Urine RBC >20 H Urine WBC 0-5 Ur Squamous Epith Cells 0-2 Urine Bacteria None Seen Hyaline Casts 0-2 Blood Type A Negative Antibody Screen NEGATIVE 07/06/24 10:26 MCV MCH MCHC RDW Plt Count MPV Immature Gran % (Auto) Neut % (Auto) Lymph % (Auto) Emmons % (Auto) Eos % (Auto) Baso % (Auto) Lymph # (Auto) Emmons # (Auto) Eos # (Auto) Baso # (Auto) Abs Immat Gran (auto) Absolute Neuts (auto) Absolute Nucleated RBC Nucleated RBC % (auto) Hold Blue Top Anion Gap Estim Creat Clear Calc Estimated GFR Random Glucose Lactic Acid 2.9 H* Calcium Total Bilirubin Direct Bilirubin AST ALT Alkaline Phosphatase Total Protein Albumin Lipase Urine Color Urine Appearance Urine pH Ur Specific [place] Urine Protein Urine Glucose (UA) Urine Ketones Urine Blood Urine Nitrite Ur Leukocyte Esterase Urine RBC Urine WBC Ur Squamous Epith Cells Urine Bacteria Hyaline Casts Blood Type Antibody Screen Assessment and Plan (1) Gross hematuria: Status: Acute (2) Recurrent UTI: Status: Acute Plan Pt is a 69-year-old female with a PMH significant for?HTN, paroxysmal AFib on Xarelto, hypothyroidism, recurrent UTIs, IBS, celiac disease, recent removal of bladder mass, and bipolar disorder who presents to the ED with?hematuria with clots x3 days. Pt will be admitted to the hospital for treatment and further evaluation of gross hematuria with clots. Hematuria Worsening with clots since restarting Xarelto on 07/02 Had bladder mass removed by Dr. 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 Continuous bladder irrigation Hold Xarelto Urology consult Follow CBC Recurrent UTIs Patient with dysuria, UA positive for nitrite, leukocyte esterase, but negative for bacteria Patient does not meet sepsis criteria: No fever, tachypnea, or leukocytosis Will empirically treat with levofloxacin, started 07/06/2024 Follow cultures Lactic acidosis Lactic acid 2.9 with BP down trending to 2.6 after IVF Not due to sepsis, patient does not meet SIRS criteria, clinically not septic Paroxysmal AFib Hold Xarelto Hold metoprolol due to soft BP, resume as warranted IBS/celiac disease Continue eluxadoline Lactose free diet Full Code Attending:?Dr. Galdamez DVT Prophylaxis: Pneumatic compression due to hematuria Pt will require a hospitalization of at least two nights for treatment of gross hematuria with clots in the setting of restarting Xarelto after recent bladder tumor removal. Patient will require inpatient level of care for continuous bladder irrigation, close monitoring of CBC, and specialist consultation with possible surgical intervention. Quality Stroke Does the patient have a stroke diagnosis?: No VTE Prior VTE?: No VTE Risk Level:: Medical - moderate - high VTE Device Contraindication: N/A - Device Ordered VTE Drug Contraindication: Treatment Not Indicated
[2024-07-06 12:31] LABS: Reflex Lactate? Lactic Acid Added
[2024-07-06 13:20] LABS: ~Lactic Acid-LAB USE ONLY 2.6 mmol/L (0.5-2.0)
[2024-07-06 13:42] LABS: Cancel Lactic Acid Canceled
--- NOTE | 2024-07-06 14:09 | PHA.MEDREC ---
Addendum entered by Freddy Bradley [facility] 07/06/24 14:43: MED REC CHECKED BY [facility] Original Note: Pharmacy Consult ? Medication Reconciliation Pharmacy has completed the medication reconciliation. Confirmed medications with patient and patient at bedside. The was able to verify his 's medications and also he was able to confirm that as of today his stopped taking her Xalrelto due to her starting to excessively bleed and the reason why she is in today. They state she took her medication last last night.
[2024-07-06] MEDS: levoFLOXacin/D5W 500 MG/100 ML PIGGYBACK 100 MG IV (14:58)
--- NOTE | 2024-07-06 17:05 | PM.UROCN ---
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 She presents to the ED with?hematuria with clots x3 days. She had stopped her Xarelto 4 days prior to procedure and then restarted on Monday 07/02. Review of Systems Review of Systems: Yes all other systems are reviewed and are negative Constitutional: Constitutional: Reports no additional constitutional complaints Eyes: Eyes: Reports no additional eye complaints ENT: Reports system reviewed and no additional complaints, except as documented Cardiovascular: Cardiovascular: Reports no additional cardiovascular complaints Respiratory: Respiratory: Reports no additional respiratory complaints Gastrointestinal: Gastrointestinal: Reports no additional gastrointestinal complaints Genitourinary: Genitourinary: Reports as per HPI Musculoskeletal: Musculoskeletal: Reports no additional musculoskeletal complaints Integumentary/Breasts: Skin/Breast: Reports system reviewed and no additional complaints, except as docu Neurologic: Reports system reviewed and no additional complaints, except as documented Psychiatric: Psychiatric: Reports no additional psychiatric complaints Endocrine: Endocrine: Reports no additional endocrine complaints Hematologic/Lymphatic: Hematologic/Lymphatic: Reports no additional hematologic/lymphatic complaints Allergic/Immunologic: Allergic/Immunologic: Reports no additional allergic/immunologic complaints [facility] Past Medical History Medical History Bilateral dacryocystitis Fall Frequency of urination Gait instability UTI (urinary tract infection) Pre-syncope Irritable bowel syndrome with diarrhea Chronic atrial fibrillation Paroxysmal atrial fibrillation C. difficile colitis Morbid obesity due to excess calories Non-insulin dependent type 2 diabetes mellitus Weakness Leg edema Bipolar 1 disorder Vertigo PTSD (post-traumatic stress disorder) History of cardioversion Arthritis Hypothyroidism History of wheezing Diabetes mellitus HTN (hypertension) LBBB (left bundle branch block) PAF (paroxysmal atrial fibrillation) Family History Family History Father No problems noted. Mother No problems noted. Other Mental health disorder Substance use disorder Surgical History Surgical History History of cardiac radiofrequency ablation History of eye surgery Hx of section Hx of colonoscopy Hx of cholecystectomy Hx of arthroscopy of right knee Social History Social History Household Members: Spouse and Children Household Members Other:: daughter + Housing: House Do you presently have visiting nurse or other home services: Yes Alcohol intake: former Comment: feels safe and has a lift at home Patient Tobacco Use Status: Former Tobacco user Smoked in Last 30 Days: No e-Cigarette/Vaping Use: Never Used Second Hand Smoke Exposure: No Use of substances other than those prescribed or required for medical reasons: No Advance Directives: Yes Advance Directives on File: Yes Advance Directives Date on File: 06/29/23 Do you have a plan to hurt others: No Plan Nutrition Risks: No Nutritional Risk service: No Current occupational status: employed Sexual orientation: Straight/Heterosexual Cognitive needs: No Hearing needs: No Vision needs: Yes Meds Allergies Allergy/AdvReac Type Severity Reaction Status Date / Time aspirin [ASA] Allergy Intermediate GI PAIN, Verified 07/06/24 03:08 upset stomach hazelnut Allergy Unknown Unknown Verified 07/06/24 03:08 shellfish derived Allergy Unknown Unknown Verified 07/06/24 03:08 divalproex sodium Allergy diarrhea, Verified 07/06/24 03:08 [From Depakote] brain fog gluten Allergy Unknown Verified 07/06/24 03:08 sesame seeds Allergy Unknown Unknown Uncoded 07/06/24 03:08 Active Medications: Current Medications Acetaminophen (Acetaminophen 325 Mg Tablet) 650 mg PO Q6H PRN PRN Reason: Pain, Mild (Pain Scale 1-3), fever or headache Benzonatate (Benzonatate 100 Mg Capsule) 100 mg PO TID PRN PRN Reason: Cough Levofloxacin (Levaquin) 500 mg in 100 mls @ 100 mls/hr IV Q24H [facility] Last Infusion: 07/06/24 16:17 Dose: Infused Magnesium Hydroxide (Milk Of Magnesia 30 Ml Oral.Susp) 30 ml PO DAILY PRN PRN Reason: Constipation Melatonin (Melatonin 3 Mg Tablet) 6 mg PO BEDTIME PRN PRN Reason: Insomnia Sodium Chloride (0.9 % Sodium Chloride Flush 3 Ml Syringe) 3 ml IVFLUSH QSHIFT [facility] Last Admin: 07/06/24 16:17 Dose: Not Given Home Medications ?Medication ?Instructions ?Recorded ?Confirmed ?Last Taken ?Type trazodone 150 mg tablet 220 mg PO BEDTIME 12/16/23 07/06/24 07/05/24 History acetaminophen 500 mg tablet 1,000 mg PO DAILY PRN Pain 07/06/24 07/06/24 Unknown History levothyroxine 150 mcg tablet 150 mcg PO DAILY@0600 for disorder 07/06/24 07/06/24 07/05/24 History of thyroid gland rivaroxaban 20 mg tablet (Xarelto) 20 mg PO QPM 07/06/24 07/06/24 07/05/24 History Physical Exam Vital Signs: Vital Signs: Last Vital Signs Temp 98.2 F 07/06/24 15:45 Pulse 66 07/06/24 15:45 Resp 16 07/06/24 15:45 BP 100/55 L 07/06/24 15:45 Pulse Ox 97 07/06/24 15:45 O2 Del Method Room Air 07/06/24 15:45 BMI result Body Mass Index 42.7 Results Labs 07/06/24 08:55 07/06/24 03:24 Labs: Abnormal lab results 07/06/24 07/06/24 07/06/24 Range/Units 03:24 08:55 10:26 RBC 4.13 L (4.20-5.50) X10*6/uL Hgb 11.3 L (12.0-16.0) g/dl Hct 36.3 L 33.2 L (37.0-47.0) % MPV 9.1 L (9.4-12.3) fL Neut % (Auto) 41.5 L (45-73) % Lymph % (Auto) 47.5 H (20-40) % Carbon Dioxide 19 L (22-29) mmol/L Random Glucose 192 H (60-115) mg/dL Lactic Acid 2.9 H* (0.5-2.0) mmol/L Lactic Acid F/U @ 2Hr (0.5-2.0) mmol/L Urine Protein 300 (3+) H (Neg-Trace) mg/dL Urine Glucose (UA) 250 H (Negative) mg/dL Urine Blood Large (3+) H (Negative) Urine Nitrite Positive H (Negative) Ur Leukocyte Esterase Trace H (Negative) Urine RBC >20 H (0-2) /HPF 07/06/24 Range/Units 12:56 RBC (4.20-5.50) X10*6/uL Hgb (12.0-16.0) g/dl Hct (37.0-47.0) % MPV (9.4-12.3) fL Neut % (Auto) (45-73) % Lymph % (Auto) (20-40) % Carbon Dioxide (22-29) mmol/L Random Glucose (60-115) mg/dL Lactic Acid (0.5-2.0) mmol/L Lactic Acid F/U @ 2Hr 2.6 H* (0.5-2.0) mmol/L Urine Protein (Neg-Trace) mg/dL Urine Glucose (UA) (Negative) mg/dL Urine Blood (Negative) Urine Nitrite (Negative) Ur Leukocyte Esterase (Negative) Urine RBC (0-2) /HPF Short CBC 07/06/24 07/06/24 Range/Units 03:24 08:55 WBC 7.1 (4.8-10.8) X10*3/uL Hgb 12.4 11.3 L (12.0-16.0) g/dl Hct 36.3 L 33.2 L (37.0-47.0) % Plt Count 227 (160-400) X10*3/uL BMP 07/06/24 03:24 Sodium 139 Potassium 4.2 Chloride 107 Carbon Dioxide 19 L BUN 15 Creatinine 0.95 Calcium 8.8 Liver Function 07/06/24 Range/Units 03:24 Total Bilirubin 0.3 (0.0-1.0) mg/dL Direct Bilirubin < 0.1 (0.0-0.5) mg/dL AST 15 (5-31) U/L ALT 13 (0-31) U/L Alkaline Phosphatase 79 (39-117) U/L Albumin 3.5 (3.5-5.0) g/dL Urine 07/06/24 Range/Units 08:55 Urine Color RED Urine Appearance Turbid Urine pH 7.5 (5.0-9.0) Ur Specific [place] 1.020 (1.005-1.025) Urine Protein 300 (3+) H (Neg-Trace) mg/dL Urine Glucose (UA) 250 H (Negative) mg/dL Imaging Additional studies: Collected: 06/26/24 Location: [facility] Received: 06/26/24 Diagnosis A. Bladder, posterior wall, transurethral resection: Carcinoma in-situ. B. Bladder, random left lateral wall, biopsy: Chronic cystitis. C. Bladder, erythematous flat lesion right lateral wall, transurethral resection: Carcinoma in-situ. D. Bladder, Transurethral resection: - High-grade urothelial carcinoma, invasive into lamina propria. - Muscularis propria present. Bladder, transurethral resection/biopsy Procedure: Transurethral resection; multiple biopsies Tumor site: Not specified Histologic type: Urothelial carcinoma (CIS in two other biopsies) Histologic grade: High grade Muscularis propria: Present Extent of invasion: Lamina propria Lymphovascular invasion: Not identified Assessment and Plan (1) Gross hematuria: Status: Acute (2) Bladder cancer: Status: Acute Plan CBI. NPO for cysto clot evacuation and fulguration in AM Procedures Date of Service Date of Service: 07/06/24
--- NOTE | 2024-07-06 19:33 | PC.NURSE ---
Report taken from Onelia VILLEGAS, assumed care of pt at this time. A&Ox3 skin pale warm and dry, respirations even unlabored. CBI continues to drain without difficulty. Awaiting bed assignment for admission, aware of plan of care.
--- NOTE | 2024-07-06 20:27 | PC.NURSE ---
Bed assignment received, report given, awaiting transport to floor.
[2024-07-06] MEDS: traZODone HCL 25 MG HALFTAB PO (22:16)
[2024-07-06] MEDS: traZODone HCL 100 MG TABLET 200 MG PO (22:16)
[2024-07-06] MEDS: Metoprolol Tartrate 25 MG TABLET 75 MG PO (22:17)
[2024-07-06] MEDS: 0.9 % Sodium Chloride Flush 3 ML SYRINGE IVFLUSH (22:17)
[2024-07-07] VITALS (12 sets, daily range): BP systolic 96–144; BP diastolic 52–83; PULSE 92–102; RESP 14–24; TEMP 36–36.6; O2SAT 93–98
[2024-07-07] MEDS: Levothyroxine Sodium 150 MCG TABLET PO (05:56)
[2024-07-07 06:12] LABS: Hemoglobin 9.2 g/dl (12.0-16.0); Mean Corpuscular HGB Conc 34.1 g/dl (31.0-35.0); Mean Corpuscular Hemoglobin 30.3 pg (27.0-33.0); Mean Corpuscular Volume 88.8 fL (80.0-98.0); Mean Platelet Volume 9.2 fL (9.4-12.3); Platelet Count 206 X10*3/uL (160-400); Red Blood Count 3.04 X10*6/uL (4.20-5.50); Red Cell Distribution Width 13.9 % (11.0-16.0); White Blood Count 7.5 X10*3/uL (4.8-10.8)
[2024-07-07 06:26] LABS: Anion Gap 11 (12-20); Blood Urea Nitrogen 10 mg/dL (9-16); Calcium 8.5 mg/dL (8.4-10.2); Carbon Dioxide 22 mmol/L (22-29); Chloride 111 mmol/L (96-108); Creatinine Clr Calc Pharmacy 86.4; Estimated Glomerular Filt Rate > 60; Glucose Random 164 mg/dL (60-115); Potassium 3.8 mmol/L (3.3-5.1); Sodium 140 mmol/L (135-145)
--- NOTE | 2024-07-07 08:52 | P.CONAN_ITS ---
[facility] Active Problems Active Problems: All Active Problems Bladder cancer (Acute) Acute blood loss anemia (Acute) Gross hematuria (Acute) Gross hematuria (Acute) Chronic anticoagulation (Acute) Recurrent UTI (Acute) Dysuria (Acute) Vitamin D deficiency (Acute) Non-celiac gluten sensitivity (Acute) Shellfish allergy (Acute) Irritable bowel syndrome with diarrhea (Acute) Chronic atrial fibrillation (Acute) Gait disturbance (Acute) Leg weakness, bilateral (Acute) Bipolar 1 disorder (Acute) Syncope (Acute) Weakness (Acute) Atrial fibrillation (Acute) Multiple food allergies (Acute) Celiac disease (Acute) Recurrent falls (Acute) Rectal incontinence (Acute) Psychiatric illness (Acute) Difficulty walking (Acute) Osteoarthritis of left hip (Acute) Coarse tremors (Acute) Difficulty sleeping (Acute) PTSD (post-traumatic stress disorder) (Acute) Bipolar 1 disorder, manic, moderate (Acute) Prolonged QT interval (Acute) Vertigo (Acute) Dacryadenitis, acute (Acute) Other specified hypothyroidism (Acute) Diastolic dysfunction with chronic heart failure (Acute) Atrial flutter (Acute) LBBB (left bundle branch block) (Acute) HTN (hypertension) (Acute) Diabetes mellitus (Acute) Past Medical History Medical History Bilateral dacryocystitis Fall Frequency of urination Gait instability UTI (urinary tract infection) Pre-syncope Irritable bowel syndrome with diarrhea Chronic atrial fibrillation Paroxysmal atrial fibrillation C. difficile colitis Morbid obesity due to excess calories Non-insulin dependent type 2 diabetes mellitus Weakness Leg edema Bipolar 1 disorder Vertigo PTSD (post-traumatic stress disorder) History of cardioversion Arthritis Hypothyroidism History of wheezing Diabetes mellitus HTN (hypertension) LBBB (left bundle branch block) PAF (paroxysmal atrial fibrillation) Functional capacity: independent ambulation Patient : No Family History Family History Father No problems noted. Mother No problems noted. Other Mental health disorder Substance use disorder Family history of problems with anesthesia: No Surgical History Surgical History History of cardiac radiofrequency ablation History of eye surgery Hx of section Hx of colonoscopy Hx of cholecystectomy Hx of arthroscopy of right knee History of Problems with Anesthesia: No Social History Social History Household Members: Spouse and Family Household Members Other:: daughter + Housing: House Do you presently have visiting nurse or other home services: No Alcohol intake: former Comment: feels safe and has a lift at home Patient Tobacco Use Status: Former Tobacco user e-Cigarette/Vaping Use: Never Used Second Hand Smoke Exposure: No Advance Directives Date on File: 06/29/23 service: No Current occupational status: employed Sexual orientation: Straight/Heterosexual Cognitive needs: No Hearing needs: No Vision needs: Yes Meds Allergies Allergy/AdvReac Type Severity Reaction Status Date / Time aspirin [ASA] Allergy Intermediate GI PAIN, Verified 07/06/24 03:08 upset stomach hazelnut Allergy Unknown Unknown Verified 07/06/24 03:08 shellfish derived Allergy Unknown Unknown Verified 07/06/24 03:08 divalproex sodium Allergy diarrhea, Verified 07/06/24 03:08 [From Depakote] brain fog gluten Allergy Unknown Verified 07/06/24 03:08 sesame seeds Allergy Unknown Unknown Uncoded 07/06/24 03:08 Active Medications: Current Medications Acetaminophen (Acetaminophen 325 Mg Tablet) 650 mg PO Q6H PRN PRN Reason: Pain, Mild (Pain Scale 1-3), fever or headache Benzonatate (Benzonatate 100 Mg Capsule) 100 mg PO TID PRN PRN Reason: Cough Levofloxacin (Levaquin) 500 mg in 100 mls @ 100 mls/hr IV Q24H [facility] Last Infusion: 07/06/24 16:17 Dose: Infused Levothyroxine Sodium (Levothyroxine Sodium 150 Mcg Tablet) 150 mcg PO DAILY@0600 [facility] Last Admin: 07/07/24 05:56 Dose: 150 mcg Magnesium Hydroxide (Milk Of Magnesia 30 Ml Oral.Susp) 30 ml PO DAILY PRN PRN Reason: Constipation Melatonin (Melatonin 3 Mg Tablet) 6 mg PO BEDTIME PRN PRN Reason: Insomnia Metoprolol Tartrate (Metoprolol Tartrate 25 Mg Tablet) 75 mg PO BID [facility]; Protocol Last Admin: 07/07/24 08:12 Dose: Not Given Sodium Chloride (0.9 % Sodium Chloride Flush 3 Ml Syringe) 3 ml IVFLUSH QSHIFT [facility] Last Admin: 07/06/24 22:17 Dose: 3 ml Trazodone HCl (Trazodone Hcl 100 Mg Tablet) 200 mg PO BEDTIME [facility] Last Admin: 07/06/24 22:16 Dose: 200 mg Trazodone HCl (Trazodone Hcl 25 Mg Halftab) 25 mg PO BEDTIME [facility] Last Admin: 07/06/24 22:16 Dose: 25 mg Vitamin D (Cholecalciferol (Vitamin D3) 25 Mcg Tablet) 25 mcg PO DAILY [facility] Last Admin: 07/07/24 08:12 Dose: Not Given Home Medications ?Medication ?Instructions ?Recorded ?Confirmed ?Last Taken ?Type trazodone 150 mg tablet 225 mg PO BEDTIME 12/16/23 07/06/24 07/05/24 History acetaminophen 500 mg tablet 1,000 mg PO DAILY PRN Pain 07/06/24 07/06/24 Unknown History levothyroxine 150 mcg tablet 150 mcg PO DAILY@0600 for disorder 07/06/24 07/06/24 07/05/24 History of thyroid gland rivaroxaban 20 mg tablet (Xarelto) 20 mg PO QPM 07/06/24 07/06/24 07/05/24 History Exam Height,Weight and Vital Signs: Height 5 ft 3 in Weight 109.316 kg Last Vital Signs Temp 96.8 F 07/07/24 07:50 Pulse 93 07/07/24 07:50 Resp 16 07/07/24 07:50 BP 128/61 07/07/24 07:50 Pulse Ox 97 07/07/24 07:50 O2 Del Method Room Air 07/07/24 07:50 Pertinent Lab Results Pertinent Lab Results: Laboratory Tests 07/06/24 07/06/24 07/06/24 03:24 08:55 08:56 WBC 7.1 RBC 4.13 L Hgb 12.4 11.3 L Hct 36.3 L 33.2 L MCV 87.9 MCH 30.0 MCHC 34.2 RDW 13.4 Plt Count 227 MPV 9.1 L Immature Gran % (Auto) 0.3 Neut % (Auto) 41.5 L Lymph % (Auto) 47.5 H Gordon % (Auto) 5.9 Eos % (Auto) 3.8 Baso % (Auto) 1.0 Lymph # (Auto) 3.4 Gordon # (Auto) 0.4 Eos # (Auto) 0.3 Baso # (Auto) 0.1 Abs Immat Gran (auto) 0.02 Absolute Neuts (auto) 3.0 Absolute Nucleated RBC 0.000 Nucleated RBC % (auto) 0.0 Hold Blue Top SEE NOTE Sodium 139 Potassium 4.2 Chloride 107 Carbon Dioxide 19 L Anion Gap 17 BUN 15 Creatinine 0.95 Estim Creat Clear Calc 68.2 Estimated GFR 59 Random Glucose 192 H Lactic Acid Lactic Acid F/U @ 2Hr Calcium 8.8 Total Bilirubin 0.3 Direct Bilirubin < 0.1 AST 15 ALT 13 Alkaline Phosphatase 79 Total Protein 7.0 Albumin 3.5 Lipase 41 Urine Color RED Urine Appearance Turbid Urine pH 7.5 Ur Specific [place] 1.020 Urine Protein 300 (3+) H Urine Glucose (UA) 250 H Urine Ketones Negative Urine Blood Large (3+) H Urine Nitrite Positive H Ur Leukocyte Esterase Trace H Urine RBC >20 H Urine WBC 0-5 Ur Squamous Epith Cells 0-2 Urine Bacteria None Seen Hyaline Casts 0-2 Blood Type A Negative Antibody Screen NEGATIVE 07/06/24 07/06/24 07/07/24 10:26 12:56 05:41 WBC 7.5 RBC 3.04 L D Hgb 9.2 L Hct 27.0 L MCV 88.8 MCH 30.3 MCHC 34.1 RDW 13.9 Plt Count 206 MPV 9.2 L Immature Gran % (Auto) Neut % (Auto) Lymph % (Auto) Gordon % (Auto) Eos % (Auto) Baso % (Auto) Lymph # (Auto) Gordon # (Auto) Eos # (Auto) Baso # (Auto) Abs Immat Gran (auto) Absolute Neuts (auto) Absolute Nucleated RBC 0.000 Nucleated RBC % (auto) 0.0 Hold Blue Top Sodium 140 Potassium 3.8 Chloride 111 H Carbon Dioxide 22 Anion Gap 11 L BUN 10 Creatinine 0.75 Estim Creat Clear Calc 86.4 Estimated GFR > 60 Random Glucose 164 H Lactic Acid 2.9 H* Lactic Acid F/U @ 2Hr 2.6 H* Calcium 8.5 Total Bilirubin Direct Bilirubin AST ALT Alkaline Phosphatase Total Protein Albumin Lipase Urine Color Urine Appearance Urine pH Ur Specific [place] Urine Protein Urine Glucose (UA) Urine Ketones Urine Blood Urine Nitrite Ur Leukocyte Esterase Urine RBC Urine WBC Ur Squamous Epith Cells Urine Bacteria Hyaline Casts Blood Type Antibody Screen Airway Mallampati Class: III TM Dist: >3cm Neck ROM: Full Heart: irregular Lungs: CTA Assessment and Plan Assessment Anesthesia Assessment: Anesthesia Plan Discussed and Chart Reviewed Final Anesthetic Review Family History of Problems with Anesthesia: No History of Problems with Anesthesia: No NPO: Yes ASA Class: III and Emergency Final Preanesthetic Review: Meds/Allgs Chart Reviewed, Consent Obtained/Reviewed and Anes Risks/Benef Reviewed Patient Risk: Intermediate Procedure Risk: Low Anesthetic Plan Anesthetic Plan: GA Disposition: Standard PACU
--- NOTE | 2024-07-07 10:39 | W.PM.OPN ---
Operative Note Operative Note Date of Service: 07/07/24 Narrative: PREOP DIAGNOSIS: GROSS HEMATURIA POSTOP DIAGNOSIS: Same PROCEDURE: CYSTOSCOPY EVACUATION BLADDER CLOTS SURGEON: Mariano Sanchez MD ANESTHESIA: General Indications: s/p TURBT, patient on Xarolto Details of procedure: The patient was brought into the operating room placed on the OR table in supine position. Antibiotics - Ancef 2 gm IV. General anesthesia was administered. The patient was repositioned into lithotomy position, prepped and draped in the usual sterile fashion. Time-out was done per protocol. The 24 fr resectoscope was passed under direct visualization. Visualization of the bladder noted large blood clots. The [employer] evacuator was used to irrigate out significant clot. Findings: Minimal oozing at resection site. All resected sites were fulgurated. A [address] catheter 30 cc balloon was passed without difficulty. CBI was started in the OR with normal saline. The patient was brought out of anesthesia and taken to recovery in stable condition. Complications: None Drains: [address] quiñones to CBI
[2024-07-07] MEDS: Acetaminophen 1,000 MG/100 ML PIGGYBACK 400 MG IV (10:56)
[2024-07-07] MEDS: fentaNYL citrate/PF 100 MCG/2 ML VIAL 25 MCG IVPUSH ×2 (11:00→11:05)
[2024-07-07] MEDS: levoFLOXacin/D5W 500 MG/100 ML PIGGYBACK 100 MG IV (12:19)
--- NOTE | 2024-07-07 12:52 | HO.PM.IMPN ---
Subjective Subjective Date of Service: 07/07/24 Interval History: Seen and evaluated this morning Hb dropped to 9.2 still having hematuria but less clots CBI running no other events Review of Systems Review of Systems: Yes all other systems are reviewed and are negative Physical Exam Vital Signs: Vital Signs: Last Vital Signs Temp 97.8 F 07/07/24 11:36 Pulse 102 H 07/07/24 11:36 Resp 16 07/07/24 11:36 BP 135/72 07/07/24 11:36 Pulse Ox 97 07/07/24 11:36 O2 Del Method Room Air 07/07/24 11:36 BMI result Body Mass Index 42.7 Const: Other: Constitutional : Awake, interactive, not in distress Neck : Normal inspection, Supple Cardiovascular : RRR, no JVP, no lower extremity edema Respiratory : good bilateral air entry, no crackles, wheezes or rhonchi Gastrointestinal: soft, lax, Normal bowel sounds, Non tender Skin : Warm, Dry Urology: De in place with hematuria and less clots Neurological : Alert & oriented x3, No focal deficit Objective Data Active Medications Acetaminophen (Acetaminophen 325 Mg Tablet) 650 mg PO Q6H PRN PRN Reason: Pain, Mild (Pain Scale 1-3), fever or headache Benzonatate (Benzonatate 100 Mg Capsule) 100 mg PO TID PRN PRN Reason: Cough Fentanyl (Fentanyl Citrate/Pf 100 Mcg/2 Ml Vial) 25 mcg IVPUSH Q5M PRN PRN Reason: Pain, Moderate to Severe (Pain Scale 4-10) Stop: 07/07/24 16:52 Last Admin: 07/07/24 11:05 Dose: 25 mcg Documented By: YSABEL Levofloxacin (Levaquin) 500 mg in 100 mls @ 100 mls/hr IV Q24H [facility] Last Admin: 07/07/24 12:19 Dose: 100 mls/hr Documented By: GLORIA Levothyroxine Sodium (Levothyroxine Sodium 150 Mcg Tablet) 150 mcg PO DAILY@0600 [facility] Last Admin: 07/07/24 05:56 Dose: 150 mcg Documented By: EDUAR Magnesium Hydroxide (Milk Of Magnesia 30 Ml Oral.Susp) 30 ml PO DAILY PRN PRN Reason: Constipation Melatonin (Melatonin 3 Mg Tablet) 6 mg PO BEDTIME PRN PRN Reason: Insomnia Metoprolol Tartrate (Metoprolol Tartrate 25 Mg Tablet) 75 mg PO BID [facility]; Protocol Last Admin: 07/07/24 08:12 Dose: Not Given Documented By: GLORIA Non-Admin Reason: NPO Naloxone HCl (Naloxone Hcl 0.4 Mg/Ml Vial) 0.04 mg IVPUSH Q5M PRN PRN Reason: Excessive sedation or RR < 8 Ondansetron HCl (Ondansetron Hcl 4 Mg/2 Ml Vial) 4 mg IVPUSH ONCE PRN PRN Reason: Nausea and Vomiting Stop: 07/07/24 16:52 Sodium Chloride (0.9 % Sodium Chloride Flush 3 Ml Syringe) 3 ml IVFLUSH QSHIFT [facility] Last Admin: 07/07/24 09:38 Dose: Not Given Documented By: GLORIA Non-Admin Reason: Previously Administered Trazodone HCl (Trazodone Hcl 100 Mg Tablet) 200 mg PO BEDTIME [facility] Last Admin: 07/06/24 22:16 Dose: 200 mg Documented By: EDUAR Trazodone HCl (Trazodone Hcl 25 Mg Halftab) 25 mg PO BEDTIME [facility] Last Admin: 07/06/24 22:16 Dose: 25 mg Documented By: EDUAR Vitamin D (Cholecalciferol (Vitamin D3) 25 Mcg Tablet) 25 mcg PO DAILY [facility] Last Admin: 07/07/24 08:12 Dose: Not Given Documented By: GLORIA Non-Admin Reason: NPO Labs 07/07/24 05:41 07/07/24 05:41 Labs: Laboratory Results - last 24 hr 07/06/24 07/07/24 12:56 05:41 MCV 88.8 MCH 30.3 MCHC 34.1 RDW 13.9 Plt Count 206 MPV 9.2 L Absolute Nucleated RBC 0.000 Nucleated RBC % (auto) 0.0 Anion Gap 11 L Estim Creat Clear Calc 86.4 Estimated GFR > 60 Random Glucose 164 H Lactic Acid F/U @ 2Hr 2.6 H* Calcium 8.5 Microbiology Microbiology Results: Microbiology 07/06/24 10:26 Blood Culture - Preliminary Blood - Venous No growth after 24 hours. 07/06/24 10:26 Blood Culture - Preliminary Blood - Venous No growth after 24 hours. Assessment and Plan (1) Bladder cancer: Status: Acute (2) Gross hematuria: Status: Acute (3) Acute blood loss anemia: Status: Acute Plan Pt is a 69-year-old female with a PMH significant for?HTN, paroxysmal AFib on Xarelto, hypothyroidism, recurrent UTIs, IBS, celiac disease, recent removal of bladder mass, and bipolar disorder who presents to the ED with?hematuria with clots x3 days. Pt will be admitted to the hospital for treatment and further evaluation of gross hematuria with clots. 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 Follow CBC Acute blood loss anemia 2/2 blood loss Patient refuses PRBCs transfusion and will require a donor (unvaccinated) follow H&H consider transfusion if drops below 8, can give IV Iron supplement as well Recurrent UTIs empirically treat with levofloxacin, started 07/06/2024 Follow cultures Lactic acidosis Not due to sepsis, patient does not meet SIRS criteria, clinically not septic Paroxysmal AFib Hold Xarelto restart metoprolol IBS/celiac disease Continue eluxadoline Lactose free diet DVT Prophylaxis: Pneumatic compression due to hematuria Pt will require a hospitalization overnight for treatment of gross hematuria for continuous bladder irrigation, close monitoring of CBC, and specialist consultation with pending surgical intervention. Quality Stroke Does the patient have a stroke diagnosis?: No VTE Prior VTE?: No VTE Risk Level:: Medical - moderate - high VTE Device Contraindication: N/A - Device Ordered VTE Drug Contraindication: Treatment Not Indicated
[2024-07-07 13:21] LABS: Hematocrit 28.3 % (37.0-47.0); Hemoglobin 9.3 g/dl (12.0-16.0); Mean Corpuscular HGB Conc 32.9 g/dl (31.0-35.0); Mean Corpuscular Hemoglobin 29.4 pg (27.0-33.0); Mean Corpuscular Volume 89.6 fL (80.0-98.0); Mean Platelet Volume 9.2 fL (9.4-12.3); Platelet Count 207 X10*3/uL (160-400); Red Blood Count 3.16 X10*6/uL (4.20-5.50); Red Cell Distribution Width 13.9 % (11.0-16.0); White Blood Count 6.8 X10*3/uL (4.8-10.8)
--- NOTE | 2024-07-07 15:30 | MHC.CM.PN ---
CM ATTEMPTED TO SEE PT WHO WAS OFF UNIT CM TO REVISIT
[2024-07-07] MEDS: Acetaminophen 325 MG TABLET 650 MG PO (15:40)
[2024-07-07] MEDS: 0.9 % Sodium Chloride Flush 3 ML SYRINGE IVFLUSH ×2 (15:42→20:19)
[2024-07-07] MEDS: traZODone HCL 100 MG TABLET 200 MG PO (20:18)
[2024-07-07] MEDS: traZODone HCL 25 MG HALFTAB PO (20:19)
[2024-07-08] VITALS (7 sets, daily range): BP systolic 110–136; BP diastolic 53–67; PULSE 85–103; RESP 14–20; TEMP 36.4–37; O2SAT 96–98
[2024-07-08] MEDS: Levothyroxine Sodium 150 MCG TABLET PO (05:35)
[2024-07-08 07:10] LABS: Hematocrit 25.5 % (37.0-47.0); Hemoglobin 8.4 g/dl (12.0-16.0); Mean Corpuscular HGB Conc 32.9 g/dl (31.0-35.0); Mean Corpuscular Hemoglobin 29.7 pg (27.0-33.0); Mean Corpuscular Volume 90.1 fL (80.0-98.0); Mean Platelet Volume 9.4 fL (9.4-12.3); Platelet Count 213 X10*3/uL (160-400); Red Blood Count 2.83 X10*6/uL (4.20-5.50); White Blood Count 7.9 X10*3/uL (4.8-10.8)
[2024-07-08 07:23] LABS: Anion Gap 15 (12-20); Blood Urea Nitrogen 9 mg/dL (9-16); Calcium 8.3 mg/dL (8.4-10.2); Carbon Dioxide 22 mmol/L (22-29); Chloride 109 mmol/L (96-108); Creatinine Clr Calc Pharmacy 80.9; Estimated Glomerular Filt Rate > 60; Glucose Random 184 mg/dL (60-115); Potassium 3.8 mmol/L (3.3-5.1); Sodium 142 mmol/L (135-145)
[2024-07-08] MEDS: Acetaminophen 325 MG TABLET 650 MG PO ×2 (08:55→19:46)
[2024-07-08] MEDS: Cholecalciferol (Vitamin D3) 25 MCG TABLET PO (08:56)
[2024-07-08] MEDS: 0.9 % Sodium Chloride Flush 3 ML SYRINGE IVFLUSH ×3 (08:58→20:45)
--- NOTE | 2024-07-08 11:00 | MHC.CM.PN ---
PATIENT LIVES WITH FAMILY. SHE USES A FWW ON [place]. HOME HAS A RAMP AND TRANSFER CHAIR FOR HER CONVENIENCE. NO VNA AT THIS TIME. HCP ON FILE AND VERIFIED. PATIENT STATES THAT SHE MAY BE RETURNING HOME WITH A CHOW CATHETER IN PLACE BUT DOES NOT FEEL THE NEED FOR VNA SERVICES AT THIS TIME. SPOUSE HAS BEEN EDUCATED ON CHOW CARE. SHE IS AWARE THAT THERE MAY BE RECOMMENDATIONS FOR VNA AND SHE IS OPEN TO THIS IF SO. NO REFERRAL PLACED YET. CM FOLLOWING FOR DC NEEDS.
[2024-07-08] MEDS: Iron Sucrose Complex 200 MG in 0.9 % Sodium Chloride 100 ML 440 MG IV (11:01)
--- NOTE | 2024-07-08 11:59 | HO.PM.IMPN ---
Subjective Subjective Date of Service: 07/08/24 Interval History: Seen and evaluated this morning Hb dropped to 8.6 no more hematuria CBI held no other events Review of Systems Review of Systems: Yes all other systems are reviewed and are negative Physical Exam Vital Signs: Vital Signs: Last Vital Signs Temp 98.6 F 07/08/24 07:56 Pulse 102 H 07/08/24 07:56 Resp 18 07/08/24 07:56 BP 110/64 07/08/24 09:04 Pulse Ox 96 07/08/24 10:51 O2 Del Method Room Air 07/08/24 07:56 O2 Flow Rate 95 07/08/24 03:21 BMI result Body Mass Index 42.7 Const: Other: Constitutional : Awake, interactive, not in distress Neck : Normal inspection, Supple Cardiovascular : RRR, no JVP, no lower extremity edema Respiratory : good bilateral air entry, no crackles, wheezes or rhonchi Gastrointestinal: soft, lax, Normal bowel sounds, Non tender Skin : Warm, Dry Urology: De in place with clear urine Neurological : Alert & oriented x3, No focal deficit Objective Data Active Medications Acetaminophen (Acetaminophen 325 Mg Tablet) 650 mg PO Q6H PRN PRN Reason: Pain, Mild (Pain Scale 1-3), fever or headache Last Admin: 07/08/24 08:55 Dose: 650 mg Documented By: GLORIA Benzonatate (Benzonatate 100 Mg Capsule) 100 mg PO TID PRN PRN Reason: Cough Levofloxacin (Levaquin) 500 mg in 100 mls @ 100 mls/hr IV Q24H [facility] Last Infusion: 07/07/24 13:19 Dose: Infused Documented By: GLORIA Iron Sucrose 200 mg/ Sodium (Chloride) 110 mls @ 440 mls/hr IV DAILY [facility] Last Infusion: 07/08/24 11:16 Dose: Infused Documented By: GLORIA Levothyroxine Sodium (Levothyroxine Sodium 150 Mcg Tablet) 150 mcg PO DAILY@0600 [facility] Last Admin: 07/08/24 05:35 Dose: 150 mcg Documented By: EDUAR Magnesium Hydroxide (Milk Of Magnesia 30 Ml Oral.Susp) 30 ml PO DAILY PRN PRN Reason: Constipation Melatonin (Melatonin 3 Mg Tablet) 6 mg PO BEDTIME PRN PRN Reason: Insomnia Metoprolol Tartrate (Metoprolol Tartrate 25 Mg Tablet) 75 mg PO BID [facility]; Protocol Last Admin: 07/08/24 09:04 Dose: Not Given Documented By: GLORIA Non-Admin Reason: Held for SBP 110 Naloxone HCl (Naloxone Hcl 0.4 Mg/Ml Vial) 0.04 mg IVPUSH Q5M PRN PRN Reason: Excessive sedation or RR < 8 Sodium Chloride (0.9 % Sodium Chloride Flush 3 Ml Syringe) 3 ml IVFLUSH QSHIFT [facility] Last Admin: 07/08/24 08:58 Dose: 3 ml Documented By: GLORIA Trazodone HCl (Trazodone Hcl 100 Mg Tablet) 200 mg PO BEDTIME [facility] Last Admin: 07/07/24 20:18 Dose: 200 mg Documented By: EDUAR Trazodone HCl (Trazodone Hcl 25 Mg Halftab) 25 mg PO BEDTIME [facility] Last Admin: 07/07/24 20:19 Dose: 25 mg Documented By: EDUAR Vitamin D (Cholecalciferol (Vitamin D3) 25 Mcg Tablet) 25 mcg PO DAILY [facility] Last Admin: 07/08/24 08:56 Dose: 25 mcg Documented By: GLORIA Labs 07/08/24 05:51 07/08/24 05:50 Labs: Laboratory Results - last 24 hr 07/07/24 07/08/24 07/08/24 12:43 05:50 05:51 MCV 89.6 90.1 MCH 29.4 29.7 MCHC 32.9 32.9 RDW 13.9 14.0 Plt Count 207 213 MPV 9.2 L 9.4 Absolute Nucleated RBC 0.000 0.000 Nucleated RBC % (auto) 0.0 0.0 Anion Gap 15 Estim Creat Clear Calc 80.9 Estimated GFR > 60 Random Glucose 184 H Calcium 8.3 L Microbiology Microbiology Results: Microbiology 07/06/24 10:26 Blood Culture - Preliminary Blood - Venous No growth after 24 hours. 07/06/24 10:26 Blood Culture - Preliminary Blood - Venous No growth after 24 hours. Assessment and Plan (1) Acute blood loss anemia: Status: Acute (2) Bladder cancer: Status: Acute (3) Gross hematuria: Status: Acute (4) Recurrent UTI: Status: Acute Plan Pt is a 69-year-old female with a PMH significant for?HTN, paroxysmal AFib on Xarelto, hypothyroidism, recurrent UTIs, IBS, celiac disease, recent removal of bladder mass, and bipolar disorder who presents to the ED with?hematuria with clots x3 days. Pt will be admitted to the hospital for treatment and further evaluation of gross hematuria with clots. 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 Follow CBC Acute blood loss anemia 2/2 blood loss Patient refuses PRBCs transfusion and will require a donor (unvaccinated) dropped to 8.6 Give IV Iron supplement consider transfusion if drops below 8, can give IV Iron supplement as well follow H&H, Recurrent UTIs empirically treat with levofloxacin, started 07/06/2024 negative cultures, DC Abx Lactic acidosis Not due to sepsis, patient does not meet SIRS criteria, clinically not septic Paroxysmal AFib Hold Xarelto restart metoprolol IBS/celiac disease Continue eluxadoline Lactose free diet DVT Prophylaxis: Pneumatic compression Pt will require a hospitalization overnight for close monitoring of CBC, and specialist follow up Quality Stroke Does the patient have a stroke diagnosis?: No VTE Prior VTE?: No VTE Risk Level:: Medical - moderate - high VTE Device Contraindication: N/A - Device Ordered VTE Drug Contraindication: Treatment Not Indicated
--- NOTE | 2024-07-08 12:23 | HO.POSTANES ---
Post Anesthesia Evaluation Post Anesthesia Evaluation Date of Service: 07/08/24 Vital Signs: Vital Signs Temp Pulse Resp BP Pulse Ox O2 Del Method O2 Flow Rate 07/08/24 10:51 96 07/08/24 09:04 110/64 07/08/24 07:56 98.6 F 102 H 18 114/58 L 96 Room Air 07/08/24 03:21 97.9 F 98 14 110/56 L Room Air 95 Anesthesia: General LMA Mental Status: Awake Pain Control: Satisfactory Nausea/Vomiting: None Hydration: Adequate Anesthesia-Related Issues: No Anes. Related Issues
[2024-07-08] MEDS: levoFLOXacin/D5W 500 MG/100 ML PIGGYBACK 100 MG IV (12:29)
[2024-07-08 13:14] LABS: Hematocrit 25.8 % (37.0-47.0); Hemoglobin 8.5 g/dl (12.0-16.0); Mean Corpuscular HGB Conc 32.9 g/dl (31.0-35.0); Mean Corpuscular Hemoglobin 29.9 pg (27.0-33.0); Mean Corpuscular Volume 90.8 fL (80.0-98.0); Mean Platelet Volume 8.9 fL (9.4-12.3); Platelet Count 217 X10*3/uL (160-400); Red Blood Count 2.84 X10*6/uL (4.20-5.50); White Blood Count 7.3 X10*3/uL (4.8-10.8)
--- NOTE | 2024-07-08 15:08 | PC.NURSE ---
Pt urine continues to be clear yellow CBI running slowly, per Dr. Sanchez, stop CBI. Pt aware of plan. CBI held.
[2024-07-08] MEDS: traZODone HCL 25 MG HALFTAB PO (20:43)
[2024-07-08] MEDS: traZODone HCL 100 MG TABLET 200 MG PO (20:43)
[2024-07-08] MEDS: Metoprolol Tartrate 25 MG TABLET 75 MG PO (20:43)
[2024-07-08] MEDS: Metoprolol Tartrate 5 MG/5 ML VIAL IVPUSH (22:00)
--- NOTE | 2024-07-08 22:34 | PC.NURSE ---
patient was having palpitations HR in 170-180s. EKG was done and showed Afib, Dr. Mancia notified and ordered 1x 5mg IV lopressor. patient put on tele monitor and transferred to [place]
[2024-07-09] VITALS (7 sets, daily range): BP systolic 112–142; BP diastolic 59–86; PULSE 99–103; RESP 18–20; TEMP 36.4–37.3; O2SAT 95–98
--- NOTE | 2024-07-09 | ECG_ITS ---
Test Reason : tachycardia, converted to sinus Blood Pressure : / mmHG Vent. Rate : 135 BPM Atrial Rate : 109 BPM P-R Int : 172 ms QRS Dur : 130 ms QT Int : 360 ms P-R-T Axes : 117 -49 144 degrees QTc Int : 540 ms Sinus tachycardia with frequent Premature ventricular complexes Left axis deviation Non-specific intra-ventricular conduction block Cannot rule out Anterior infarct , age undetermined T wave abnormality, consider lateral ischemia Abnormal ECG When compared with ECG of 06-JUL-2024 10:45, Premature ventricular complexes are now Present Premature atrial complexes are no longer Present Vent. rate has increased BY 71 BPM T wave amplitude has increased in Anterior leads Referred By: Diana Easton Electronically Signed By:FERDINAND MELÉNDEZ
[2024-07-09] MEDS: Levothyroxine Sodium 150 MCG TABLET PO (05:21)
[2024-07-09 06:08] LABS: Hemoglobin 8.7 g/dl (12.0-16.0); Mean Corpuscular HGB Conc 32.2 g/dl (31.0-35.0); Mean Corpuscular Hemoglobin 29.9 pg (27.0-33.0); Mean Corpuscular Volume 92.8 fL (80.0-98.0); Mean Platelet Volume 9.2 fL (9.4-12.3); Platelet Count 220 X10*3/uL (160-400); Red Blood Count 2.91 X10*6/uL (4.20-5.50); Red Cell Distribution Width 14.2 % (11.0-16.0); White Blood Count 7.6 X10*3/uL (4.8-10.8)
[2024-07-09 06:09] LABS: Hematocrit 26.5 % (37.0-47.0); Hemoglobin 8.4 g/dl (12.0-16.0); Mean Corpuscular HGB Conc 31.7 g/dl (31.0-35.0); Mean Corpuscular Hemoglobin 29.1 pg (27.0-33.0); Mean Corpuscular Volume 91.7 fL (80.0-98.0); Mean Platelet Volume 9.5 fL (9.4-12.3); NRBC Pct Auto 0.3 /100WBC (0.0-0.2); Platelet Count 224 X10*3/uL (160-400); Red Blood Count 2.89 X10*6/uL (4.20-5.50); Red Cell Distribution Width 14.2 % (11.0-16.0); White Blood Count 7.2 X10*3/uL (4.8-10.8)
[2024-07-09 06:25] LABS: Anion Gap 14 (12-20); Blood Urea Nitrogen 9 mg/dL (9-16); Calcium 8.3 mg/dL (8.4-10.2); Carbon Dioxide 20 mmol/L (22-29); Chloride 109 mmol/L (96-108); Estimated Glomerular Filt Rate > 60; Glucose Random 194 mg/dL (60-115); Sodium 139 mmol/L (135-145)
[2024-07-09] MEDS: 0.9 % Sodium Chloride Flush 3 ML SYRINGE IVFLUSH ×2 (09:03→15:35)
[2024-07-09] MEDS: Cholecalciferol (Vitamin D3) 25 MCG TABLET PO (09:03)
[2024-07-09] MEDS: Metoprolol Tartrate 25 MG TABLET 75 MG PO (09:03)
--- NOTE | 2024-07-09 10:01 | ECG_ITS ---
Test Reason : a fib Blood Pressure : / mmHG Vent. Rate : 162 BPM Atrial Rate : 000 BPM P-R Int : 000 ms QRS Dur : 122 ms QT Int : 296 ms P-R-T Axes : 000 -56 135 degrees QTc Int : 485 ms Atrial fibrillation with rapid ventricular response Left axis deviation Abnormal ECG When compared with ECG of 08-JUL-2024 21:37, Atrial fibrillation has replaced Sinus rhythm Referred By: Diana Easton Electronically Signed By:FERDINAND MELÉNDEZ
--- NOTE | 2024-07-09 10:21 | ECG_ITS ---
Test Reason : ABN EKG Blood Pressure : / mmHG Vent. Rate : 101 BPM Atrial Rate : 101 BPM P-R Int : 140 ms QRS Dur : 126 ms QT Int : 392 ms P-R-T Axes : 000 043 174 degrees QTc Int : 508 ms Sinus tachycardia Non-specific intra-ventricular conduction block T wave abnormality, consider lateral ischemia Abnormal ECG When compared with ECG of 08-JUL-2024 21:37, Sinus tachycardia has replaced Atrial fibrillation Heart rate has decreased Referred By: Jennifer Duran Electronically Signed By:FERDINAND MELÉNDEZ
[2024-07-09] MEDS: Iron Sucrose Complex 200 MG in 0.9 % Sodium Chloride 100 ML 440 MG IV (10:30)
--- NOTE | 2024-07-09 11:46 | HO.PM.IMPN ---
Subjective Subjective Date of Service: 07/09/24 Interval History: Seen and evaluated this morning Hb improved to 8.7 no more hematuria CBI stopped had a run of Afib rvr to 180s overnight, responded to IV Metoprolol no other events Review of Systems Review of Systems: Yes all other systems are reviewed and are negative Physical Exam Vital Signs: Vital Signs: Last Vital Signs Temp 97.8 F 07/09/24 08:00 Pulse 100 07/09/24 08:00 Resp 19 07/09/24 08:00 BP 121/61 07/09/24 08:00 Pulse Ox 97 07/09/24 10:00 O2 Del Method Nasal Cannula 07/09/24 10:00 O2 Flow Rate 1 07/09/24 08:00 Oxygen Flow Rate 1 07/09/24 10:00 BMI result Body Mass Index 42.7 Const: Other: Constitutional : Awake, interactive, not in distress Neck : Normal inspection, Supple Cardiovascular : irregular irregular, no JVP, no lower extremity edema Respiratory : good bilateral air entry, no crackles, wheezes or rhonchi Gastrointestinal: soft, lax, Normal bowel sounds, Non tender Skin : Warm, Dry Urology: De in place with clear urine Neurological : Alert & oriented x3, No focal deficit Objective Data Active Medications Acetaminophen (Acetaminophen 325 Mg Tablet) 650 mg PO Q6H PRN PRN Reason: Pain, Mild (Pain Scale 1-3), fever or headache Last Admin: 07/08/24 19:46 Dose: 650 mg Documented By: MYRNA Benzonatate (Benzonatate 100 Mg Capsule) 100 mg PO TID PRN PRN Reason: Cough Iron Sucrose 200 mg/ Sodium (Chloride) 110 mls @ 440 mls/hr IV DAILY [facility] Last Infusion: 07/09/24 10:52 Dose: Infused Documented By: DARWIN Levofloxacin (Levofloxacin 500 Mg Tablet) 500 mg PO Q24H [facility] Levothyroxine Sodium (Levothyroxine Sodium 150 Mcg Tablet) 150 mcg PO DAILY@0600 [facility] Last Admin: 07/09/24 05:21 Dose: 150 mcg Documented By: PAULINE Magnesium Hydroxide (Milk Of Magnesia 30 Ml Oral.Susp) 30 ml PO DAILY PRN PRN Reason: Constipation Melatonin (Melatonin 3 Mg Tablet) 6 mg PO BEDTIME PRN PRN Reason: Insomnia Metoprolol Tartrate (Metoprolol Tartrate 25 Mg Tablet) 75 mg PO BID [facility]; Protocol Last Admin: 07/09/24 09:03 Dose: 75 mg Documented By: DARWIN Naloxone HCl (Naloxone Hcl 0.4 Mg/Ml Vial) 0.04 mg IVPUSH Q5M PRN PRN Reason: Excessive sedation or RR < 8 Sodium Chloride (0.9 % Sodium Chloride Flush 3 Ml Syringe) 3 ml IVFLUSH QSHIFT [facility] Last Admin: 07/09/24 09:03 Dose: 3 ml Documented By: DARWIN Trazodone HCl (Trazodone Hcl 100 Mg Tablet) 200 mg PO BEDTIME [facility] Last Admin: 07/08/24 20:43 Dose: 200 mg Documented By: MYRNA Trazodone HCl (Trazodone Hcl 25 Mg Halftab) 25 mg PO BEDTIME [facility] Last Admin: 07/08/24 20:43 Dose: 25 mg Documented By: MYRNA Vitamin D (Cholecalciferol (Vitamin D3) 25 Mcg Tablet) 25 mcg PO DAILY [facility] Last Admin: 07/09/24 09:03 Dose: 25 mcg Documented By: DARWIN Labs 07/09/24 05:39 07/09/24 05:38 Labs: Laboratory Results - last 24 hr 07/08/24 07/09/24 07/09/24 13:04 05:38 05:39 MCV 90.8 91.7 92.8 MCH 29.9 29.1 29.9 MCHC 32.9 31.7 32.2 RDW 14.0 14.2 14.2 Plt Count 217 224 220 MPV 8.9 L 9.5 9.2 L Absolute Nucleated RBC 0.000 0.020 H 0.000 Nucleated RBC % (auto) 0.0 0.3 H 0.0 Anion Gap 14 Estim Creat Clear Calc 83.0 Estimated GFR > 60 Random Glucose 194 H Calcium 8.3 L Microbiology Microbiology Results: Microbiology 07/06/24 10:26 Blood Culture - Preliminary Blood - Venous No growth after 48 hours. 07/06/24 10:26 Blood Culture - Preliminary Blood - Venous No growth after 48 hours. Assessment and Plan (1) Bladder cancer: Status: Acute (2) Acute blood loss anemia: Status: Acute (3) Gross hematuria: Status: Acute (4) Atrial fibrillation with rapid ventricular response: Status: Acute Plan Pt is a 69-year-old female with a PMH significant for?HTN, paroxysmal AFib on Xarelto, hypothyroidism, recurrent UTIs, IBS, celiac disease, recent removal of bladder mass, and bipolar disorder who presents to the ED with?hematuria with clots x3 days. Pt will be admitted to the hospital for treatment and further evaluation of gross hematuria with clots. 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 post cystoscopy Xarelto on Hold URine cleared up, CBI on hold URology following , continue to hold Xarelto for 5 more days Follow CBC Acute blood loss anemia 2/2 blood loss Patient refuses PRBCs transfusion and will require a donor (unvaccinated) stable at 8.7 Give IV Iron supplement daily consider transfusion if drops below 8 follow H&H, Recurrent UTIs negative cultures, DC Abx Lactic acidosis Not due to sepsis, patient does not meet SIRS criteria, clinically not septic IBS/celiac disease Continue eluxadoline Lactose free diet DVT Prophylaxis: Pneumatic compression Pt will require a hospitalization overnight for close monitoring of CBC, Heart monitoring for RvR and specialist follow up Quality Stroke Does the patient have a stroke diagnosis?: No VTE Prior VTE?: No VTE Risk Level:: Medical - moderate - high VTE Device Contraindication: N/A - Device Ordered VTE Drug Contraindication: Treatment Not Indicated
--- NOTE | 2024-07-09 14:16 | MHC.CM.PN ---
Per rounds and med record review, pt requies ongoing care to closely monitor CBC and for RvR. DCP is home self care or with [facility]NA services.
--- NOTE | 2024-07-09 16:06 | P.CDIM_ITS ---
PROVIDER RESPONSE TEXT: To clarify, the appropriate diagnosis supported by the clinical indicators: Acute QUERY TEXT: PHYSICIAN'S DOCUMENTATION REQUEST Date of Query: 07/09/2024 08:56 AM EDT Patient Name: Bianca Kwok Admit Date: 07/06/2024 Dear Jennifer Duran MD, A review of the medical record indicates additional documentation may be needed. Please review below and update the documentation accordingly. Clinical Indicators: Progress notes within the Plan - Lactic acidosis Lactic acidosis 2.9 with BP down trending to 2.6 after IVF Clarify which of the following accurately represents the acuity of the Lactic acidosis: Possible options might include: Acute Acute on chronic Other (explain) Clinically unable to determine (explain) Thank you, Marilia Narvaez, CCS, CDIS Use of terms such as suspected, likely, concern for, or probable (associated with a specific diagnosi s that is being evaluated, monitored, or treated as if it exists) are acceptable and can be coded in the inpatient se tting, when documented at the time of discharge. Please use your independent medical judgment in providing your response. THIS QUERY IS PART OF THE PERMANENT MEDICAL RECORD
[2024-07-09] MEDS: Acetaminophen 325 MG TABLET 650 MG PO (17:44)
[2024-07-09] MEDS: traZODone HCL 25 MG HALFTAB PO (21:29)
[2024-07-09] MEDS: Metoprolol Tartrate 100 MG TABLET PO (21:29)
[2024-07-09] MEDS: traZODone HCL 100 MG TABLET 200 MG PO (21:30)
[2024-07-10 03:03] VITALS: BP 121/60; PULSE 99; RESP 20; TEMP 36.1; O2SAT 95
[2024-07-10] MEDS: Levothyroxine Sodium 150 MCG TABLET PO (05:41)
[2024-07-10 06:14] LABS: Anion Gap 14 (12-20); Blood Urea Nitrogen 11 mg/dL (9-16); Calcium 8.2 mg/dL (8.4-10.2); Carbon Dioxide 21 mmol/L (22-29); Chloride 109 mmol/L (96-108); Creatinine Clr Calc Pharmacy 84.1; Estimated Glomerular Filt Rate > 60; Glucose Random 172 mg/dL (60-115); Magnesium 1.6 mg/dL (1.6-2.6); Potassium 3.7 mmol/L (3.3-5.1); Sodium 140 mmol/L (135-145)
[2024-07-10 06:19] LABS: Hematocrit 24.7 % (37.0-47.0); Hemoglobin 8.1 g/dl (12.0-16.0); Mean Corpuscular HGB Conc 32.8 g/dl (31.0-35.0); Mean Corpuscular Hemoglobin 30.1 pg (27.0-33.0); Mean Corpuscular Volume 91.8 fL (80.0-98.0); Mean Platelet Volume 9.2 fL (9.4-12.3); NRBC Pct Auto 0.4 /100WBC (0.0-0.2); Platelet Count 222 X10*3/uL (160-400); Red Blood Count 2.69 X10*6/uL (4.20-5.50); Red Cell Distribution Width 14.3 % (11.0-16.0); White Blood Count 7.3 X10*3/uL (4.8-10.8)
[2024-07-10 07:16] VITALS: BP 120/61; PULSE 98; RESP 20; TEMP 36.3; O2SAT 95
[2024-07-10] MEDS: Metoprolol Tartrate 100 MG TABLET PO (07:33)
[2024-07-10] MEDS: Cholecalciferol (Vitamin D3) 25 MCG TABLET PO (07:33)
[2024-07-10] MEDS: 0.9 % Sodium Chloride Flush 3 ML SYRINGE IVFLUSH (07:34)
[2024-07-10] MEDS: Acetaminophen 325 MG TABLET 650 MG PO (07:50)
[2024-07-10] MEDS: Iron Sucrose Complex 200 MG in 0.9 % Sodium Chloride 100 ML 440 MG IV (08:52)
--- NOTE | 2024-07-10 09:57 | MHC.CM.PN ---
ANTIC PT TO BE MEDICALLY CLEARED FOR DC HOME SELF CARE, FAMILY FOR TRANSPORT
[2024-07-10 10:00] VITALS: O2SAT 96
[2024-07-10 11:02] VITALS: BP 124/60; PULSE 100; RESP 18; TEMP 36.5; O2SAT 95
--- NOTE | 2024-07-10 11:49 | P.DS_ITS ---
DS: Providers Provider Date of Service: 07/10/24 Date of admission: 07/06/24 12:32 Date of discharge: 07/10/24 Primary care physician: Adithya Gutierrez MD Consults: 07/06/24 10:35 Consult to Urology Stat Consulting Provider: [facility] Reason for consultation: gross hematuria s/p procedure 06/26 Has provider been notified: Yes DS: Diagnosis Discharge Diagnosis (1) Bladder cancer: Status: Acute (2) Acute blood loss anemia: Status: Acute (3) Gross hematuria: Status: Acute (4) Atrial fibrillation with rapid ventricular response: Status: Acute DS: Summary Hospital Course Hospital Course: Admission note HPI Pt is a 69-year-old female with a PMH significant for?HTN, paroxysmal AFib on Xarelto, hypothyroidism, recurrent UTIs, IBS, celiac disease, recent removal of bladder mass, and bipolar disorder who presents to the ED with?hematuria with clots x3 days. Pt recently had a bladder mass removed by Dr. Sanchez in urology here at [facility] on 07/06/[place]24. 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 Initially did well postoperatively. Had De catheter in place procedure day without bleeding. Once removed patient resumed using her home PurWick at night. Noticed inter mittent, small amount of blood in urine during the weekend. She had stopped her Xarelto 4 days prior to procedure and then restarted on Friday 06/01. On Tuesday pt began noticing an increasing amount of blood in her urine with clots, which continued to worsen over the next few days to the point it was clogging the PureWick and turned it black . Reports minor abdominal discomfort but denies edinson pain. Has been having increased burning with urination for the past week. In the ED pt with elevated HR of 97, and soft BP as low as 90/48. Labs were significant for initial H&H 12.4/36.3 with repeat 11.3/33.2, and lactic acid 2.9. UA positive for protein, glucose, blood, nitrites, trace leukocyte esterase, but negative for wbc's bacteria EKG demonstrated sinus rhythm with PACs T-wave inversions in V1 V2 and V3. In the ED pt was started on CBI and treated with ceftriaxone. Pt will be admitted to the hospital for treatment and further evaluation of gross hematuria with clots. 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 She was admitted on CBI with mild improvement as Xarelto was held. Evaluated by Urologist dr Valadez who did a Cystoscopy with fulguration of bleeding spots and resolution of hematuria over the course of the night. Urology recommended Xarelto to be held at least 5 more days. CBI was discontinued but the patient will be discharged on De catheter with a plan to follow with jared fuentes as outpatient. # Acute blood loss anemia secondary to blood loss from hematuria The patient stopped bleeding but her hemoglobin trended down as low as 8.1 at the day of discharge. The patient refused PRBCs transfusion when offered and will require a donor (unvaccinated) if she needs one. She agreed though to Iron supplement through the IV. She was able to ambulate reporting less dyspnea than before. To be discharged on PO Iron bid and to repeat CBC in 2-3 days before restarting Xarelto. Advised about signs of anemia and when to come back to the hospital. # Paroxysmal AFib with actue RVR Had one run requiring IV Metoprolol with fair response likely related to increase demand from anemia and Hb drop. Increae PO Metoprolol to 100 mg bid with HR stable 80-100 with no reported palpitations or dyspnea. To restart Xarelto on Tuesday as planned. Discharge plan Hold Xarelto until Tuesday Start Iron pills with meals twice daily Repeat CBC in the next 2-3 days To follow up with dr Sanchez as outpatient Watch for symptoms of anemia and come back to ED if your are having difficulties breathing, lethargy or palpitations Time Attestation Discharge Coordination Time (in mins): 46 Quality: Safe Use of Opioids Does Pt have an Active Cancer Diagnosis on the Problem List?: Yes Opioid Measure Date for [facility] Report: 06/10/24 Opioid Measure Time for [facility] Report: 11:59 Quality: Stroke Does the patient have a stroke diagnosis?: No Physical Exam Vital Signs: Vital Signs: Last Vital Signs Temp 97.7 F 07/10/24 11:02 Pulse 100 07/10/24 11:02 Resp 18 07/10/24 11:02 BP 124/60 07/10/24 11:02 Pulse Ox 95 07/10/24 11:02 O2 Del Method Room Air 07/10/24 11:02 O2 Flow Rate 1 07/09/24 08:00 Oxygen Flow Rate 1 07/09/24 10:00 BMI result Body Mass Index 42.7 Const: Other: Constitutional : Awake, interactive, not in distress Neck : Normal inspection, Supple Cardiovascular : irregular irregular, no JVP, no lower extremity edema Respiratory : good bilateral air entry, no crackles, wheezes or rhonchi Gastrointestinal: soft, lax, Normal bowel sounds, Non tender Skin : Warm, Dry Urology: De in place with clear urine Neurological : Alert & oriented x3, No focal deficit DS: Data Data Completed and Pending Completed studies during hospitalization [Text1]: Pending at discharge 07/07/24 10:47 Surgical [PTH] Stat Procedures Control Bleeding in Gastrointestinal Tract, Via Natural or Artificial Opening Endoscopic (09/30/23) Excision of Ascending Colon, Via Natural or Artificial Opening Endoscopic, Diagnostic (09/30/23) Excision of Descending Colon, Via Natural or Artificial Opening Endoscopic, Diagnostic (09/30/23) Excision of Duodenum, Via Natural or Artificial Opening Endoscopic, Diagnostic (09/30/23) Excision of Ileum, Via Natural or Artificial Opening Endoscopic, Diagnostic (09/30/23) Excision of Sigmoid Colon, Via Natural or Artificial Opening Endoscopic, Diagnostic (09/30/23) Excision of Stomach, Pylorus, Via Natural or Artificial Opening Endoscopic, Diagnostic (09/30/23) Excision of Transverse Colon, Via Natural or Artificial Opening Endoscopic, Diagnostic (09/30/23) Labs on day of discharge: Laboratory Results - last 24 hr 07/10/24 05:39 WBC 7.3 RBC 2.69 L Hgb 8.1 L Hct 24.7 L MCV 91.8 MCH 30.1 MCHC 32.8 RDW 14.3 Plt Count 222 MPV 9.2 L Absolute Nucleated RBC 0.030 H Nucleated RBC % (auto) 0.4 H Sodium 140 Potassium 3.7 Chloride 109 H Carbon Dioxide 21 L Anion Gap 14 BUN 11 Creatinine 0.77 Estim Creat Clear Calc 84.1 Estimated GFR > 60 Random Glucose 172 H Calcium 8.2 L Magnesium 1.6 Preliminary micro results at discharge 07/06/24 10:26 Blood Culture - Preliminary Blood - Venous No growth after 48 hours. 07/06/24 10:26 Blood Culture - Preliminary Blood - Venous No growth after 48 hours. Discharge Plan Discharge Anticipated Discharge Date/Time: 07/10/24 11:35 Patient Disposition: Home, Self-Care Discharge Diagnosis: Hematuria Blood loss anemia Referrals: Adithya Gutierrez MD [Primary Care Provider] - 1 Week Discharge Medications: New ferrous sulfate 325 mg (65 mg iron) tablet 325 mg PO BIDWM Qty: 60 2RF Continued Viberzi 75 mg tablet 75 mg PO BID Qty: 60 3RF metoprolol tartrate 75 mg tablet 75 mg PO BID 90 Days Qty: 180 3RF Rx Instructions: dose increased, change from xl to short acting acetaminophen 500 mg Tablet 1,000 mg PO DAILY PRN (Reason: Pain) levothyroxine 150 mcg tablet 150 mcg PO DAILY@0600 cholecalciferol (vitamin D3) 25 mcg (1,000 unit) capsule 25 mcg PO DAILY 90 Days Qty: 90 0RF trazodone 150 mg tablet 225 mg PO BEDTIME Held Xarelto 20 mg tablet 20 mg PO QPM Hold Instructions: Resume on 07/14/24. Discharge Orders: Discharge Order (Routine); Ordered 07/10/24 Ordered By: Jennifer Duran Diet: Advance to usual diet Activity on Discharge: As tolerated Stand Alone Forms: Patient Portal Discharge page Print Language: Malaysian Other Ambulatory Orders: Complete Blood Count Auto Diff (Routine) Timeframe: 3 Days Facility: [facility] - Location: Laboratory Ordered By: Jennifer Duran Care Plan Goals: You were treated for bloody urine. seen by urologist who did Cystoscopy and controlled the source of bleeding. Xarelto was held as your urine cleared up. You had a run of rapid heart rate as your blood level dropped to anemia level from blood loss. you did not want regular blood transfusion and started on Iron supplement instead. Hold Xarelto until Tuesday Start Iron pills with meals twice daily Repeat CBC in the next 2-3 days To follow up with dr Snachez as outpatient Watch for symptoms of anemia and come back to ED if your are having difficulties breathing, lethargy or palpitations Health Concerns: Read below Plan of Treatment: Read below Assessment: Read below
== END 2024-07-10 14:07 | disposition home or self-care (01) | DRG 908 ==
LOC: HO.ED 09:09 → HO.EDOVER 12:46 → HO.S3 19:08 → HO.IMC 07-08 22:16
PROVIDERS: Physician Assistant; Urology; Admitting Provider Student in an Organized Health Care Education/Training Program; Emergency Provider Emergency Medicine Emergency Medical Services; PCP Internal Medicine; Visit Provider Student in an Organized Health Care Education/Training Program
PROC: 0W3R8ZZ Control Bleeding in Genitourinary Tract, Via Natural or Artificial Opening Endoscopic (ICD-10-PCS; principal; 2024-07-07 09:00)
DX: N99.820 Postprocedural hemorrhage of a genitourinary system organ or structure following a genitourinary system procedure (principal); D62 Acute posthemorrhagic anemia; E87.21 Acute metabolic acidosis; N39.0 Urinary tract infection, site not specified; R31.0 Gross hematuria; C67.9 Malignant neoplasm of bladder, unspecified; K58.9 Irritable bowel syndrome, unspecified; Y83.9 Surgical procedure, unspecified as the cause of abnormal reaction of the patient, or of later complication, without mention of misadventure at the time of the procedure; K90.0 Celiac disease; F31.9 Bipolar disorder, unspecified; E03.9 Hypothyroidism, unspecified; I48.0 Paroxysmal atrial fibrillation; Z87.891 Personal history of nicotine dependence; Z79.01 Long term (current) use of anticoagulants; Z79.890 Hormone replacement therapy; Z79.899 Other long term (current) drug therapy
CPT/HCPCS: 36415; 80048; 80076; 81001; 83605; 83690; 83735; 85014; 85018; 85025; 85027; 86850; 86900; 86901; 87040; 87086; 88304; 93005; 99285; C1769; J0131; J0690; J0696; J1100; J1756; J1956; J2250; J2405; J2704; J3010

== ENCOUNTER → 2024-07-06 12:32 | Outpatient (BNV) | payer MEDICARE, BC, SELFPAY | PROVIDERS: Admitting Provider Student in an Organized Health Care Education/Training Program; Emergency Provider Emergency Medicine Emergency Medical Services; PCP Internal Medicine; Visit Provider Urology | DX: R31.0 Gross hematuria (principal) | CPT/HCPCS: 52001; 99222 ==

== ENCOUNTER → 2024-07-06 12:32 | Outpatient (BNV) | payer MEDICARE, BC, SELFPAY | PROVIDERS: Admitting Provider Student in an Organized Health Care Education/Training Program; Emergency Provider Emergency Medicine Emergency Medical Services; PCP Internal Medicine; Visit Provider Student in an Organized Health Care Education/Training Program | DX: C67.8 Malignant neoplasm of overlapping sites of bladder (principal); I48.91 Unspecified atrial fibrillation; D62 Acute posthemorrhagic anemia; R31.0 Gross hematuria | CPT/HCPCS: 99223; 99232; 99233; 99239 ==

== ENCOUNTER → 2024-07-17 10:21 | Outpatient (BNVA) | payer MEDICARE, BC, SELFPAY | PROVIDERS: PCP Internal Medicine; Visit Provider Urology | DX: R30.0 Dysuria (principal); R31.0 Gross hematuria | CPT/HCPCS: 51700; 51798 ==

== ENCOUNTER 2024-07-26 15:15 | Outpatient (AMB) | payer MEDICARE, BC, SELFPAY ==
--- NOTE | 2024-07-26 15:15 | MHC.OFFVIS ---
Intake Visit Reasons: Tele TURBT follow up Intake Note: Patient is present for Telephone Post Op TURBT Follow up TURBT Performed on 06/26/24 Urology Med: None Anitbiotic Allergy:None Blood Thinner: Xarelto Seo Consultant Required: No Accompanied by: Self / Same As Patient Allergies aspirin [ASA] Allergy (Intermediate, Verified 08/13/24 13:39) GI PAIN, upset stomach hazelnut Allergy (Unknown, Verified 08/13/24 13:39) Unknown shellfish derived Allergy (Unknown, Verified 08/13/24 13:39) Unknown divalproex sodium [From Depakote] Allergy (Verified 08/13/24 13:39) diarrhea, brain fog gluten Allergy (Verified 08/13/24 13:39) Unknown sesame seeds Allergy (Unknown, Uncoded 08/13/24 13:39) Unknown HPI Comments Details: 07/26/24--S/P TurBT on 06/26/24, She was admitted to [facility] for hematuria on 07/06/24 and had cystoscopy evacuation of blood clots and fulguration of biopsied areas in the bladder. 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 Discussed treatment options. The patient wants to think about what we discussed and wants a fu visit to go over further questions she may have. Review of chart: 06/08/24--Bianca is a 68 y/o female here with complaints of hematuria and recurrent UTI's. States started about Feb, 2024. Her is present and gives most of the history. He states she was given 4 courses of antibiotics, nitrofurantoin. 03/2024 urine c/s - Ecoli. Sensitivities noted below. In review of chart: CTAPw/contrast - kidneys wnL, abnormal findings in bladder. UA nitrite positive- will empically treat with levaquin 500 mg daily. H/o nicotine use. Will send urine for culture and cytology. Renal US. Discussed cysto/TURBT, pt on anticoagulation, need Cardiology clearance. Office cystoscopy: papillary bladder tumor, right lateral wall. [facility] Medical History (Updated 08/21/24 @ 13:48 by Mariano Sanchez MD) Bladder cancer Acute blood loss anemia Recurrent UTI Bilateral dacryocystitis Fall Frequency of urination Gait instability UTI (urinary tract infection) Pre-syncope Irritable bowel syndrome with diarrhea Chronic atrial fibrillation Paroxysmal atrial fibrillation C. difficile colitis Morbid obesity due to excess calories Non-insulin dependent type 2 diabetes mellitus Weakness Leg edema Bipolar 1 disorder Vertigo PTSD (post-traumatic stress disorder) History of cardioversion Arthritis Hypothyroidism History of wheezing Diabetes mellitus HTN (hypertension) LBBB (left bundle branch block) PAF (paroxysmal atrial fibrillation) Surgical History History of cardiac radiofrequency ablation History of eye surgery Hx of section Hx of colonoscopy Hx of cholecystectomy Hx of arthroscopy of right knee Family History Father No problems noted. Mother No problems noted. Other Mental health disorder Substance use disorder Social History Household Members: Spouse and Family Household Members Other:: daughter + Housing: House Do you presently have visiting nurse or other home services: No Alcohol intake: former Comment: feels safe and has a lift at home Patient Tobacco Use Status: Former Tobacco user e-Cigarette/Vaping Use: Never Used Second Hand Smoke Exposure: No Advance Directives Date on File: 06/29/23 service: No Current occupational status: employed Sexual orientation: Straight/Heterosexual Cognitive needs: No Hearing needs: No Vision needs: Yes Review of Systems Const All systems reviewed & are unremarkable except as noted in HPI and below Reports no additional complaints Eyes Reports no additional complaints ENT Reports no additional complaints Card Reports no additional complaints Resp Reports no additional complaints GI Reports no additional complaints Reports as per HPI Musc Reports no additional complaints Skin/Breast Reports system reviewed and no additional complaints, except as documented Neuro Reports no additional complaints Psych Reports no additional complaints Endo Reports no additional complaints Serafin/Lymph Reports no additional complaints Aller/Immun Reports no additional complaints Telehealth Telehealth Telehealth Platform: Telephone Location of provider rendering services: practice address Location of patient: address on file Patient Identification confirmed using: Name, : Yes Telehealth method: voice only Patient verbally consented to treatment: Yes Patient verbally consented to billing insurance company: Yes Patient informed of any privacy concerns related to visit: Yes Minutes spent on Phone/Video with Pt.: 15 Results Reviewed Results Reviewed: Collected: 06/26/24 Location: [facility] Received: 06/26/24 Diagnosis A. Bladder, posterior wall, transurethral resection: Carcinoma in-situ. B. Bladder, random left lateral wall, biopsy: Chronic cystitis. C. Bladder, erythematous flat lesion right lateral wall, transurethral resection: Carcinoma in-situ. D. Bladder, Transurethral resection: - High-grade urothelial carcinoma, invasive into lamina propria. - Muscularis propria present. Bladder, transurethral resection/biopsy Procedure: Transurethral resection; multiple biopsies Tumor site: Not specified Histologic type: Urothelial carcinoma (CIS in two other biopsies) Histologic grade: High grade Muscularis propria: Present Extent of invasion: Lamina propria Lymphovascular invasion: Not identified Clinical History Bladder tumor Date of Service: 09/29/23 EXAMINATION: CT ABDOMEN AND PELVIS WITH CONTRAST CLINICAL INFORMATION: Abdominal pain, sepsis COMPARISON: CT abdomen and pelvis 09/03/2023 TECHNIQUE: Multidetector volumetric images were obtained from the superior aspect of the liver through the pubic symphysis following administration 85 mL of Omnipaque 350 intravenous contrast. Sagittal and coronal reformatted images were obtained on the technologist's workstation. Oral contrast: No This CT examination was performed using dose optimization techniques as appropriate, variously including the following: *Automated exposure control *Adjustment of mA and/or kV according to patient size (this includes techniques or standardized protocols for targeted exams where dose is matched to indication/reason for exam; i.e. extremities or head) *Use of iterative reconstruction technique DLP: 1693 mGy-cm FINDINGS: There is motion artifact throughout the exam limiting evaluation. LUNG BASES: The visualized lung bases are unremarkable. LIVER, GALLBLADDER, AND BILIARY TREE: The liver is normal in size, shape, with a low-attenuation area in the left hepatic and right hepatic lobe on axial slice 18/3 no focal hepatic lesion or biliary ductal dilatation is present. There are surgical dayday in the right upper quadrant from previous cholecystectomy. PANCREAS: Unremarkable. SPLEEN: Unremarkable. ADRENAL GLANDS: Unremarkable. KIDNEYS AND URETERS: The kidneys are normal in size, shape, and attenuation. No hydronephrosis, hydroureter, or calculi seen. No perinephric stranding. BLADDER: There is mild bladder wall thickening with enhancing 1.2 cm nodule along the right posterior bladder wall and moderate bladder wall thickening along the base. No radiopaque calculi seen. GASTROINTESTINAL TRACT: There is scattered stool and gas seen throughout the colon without distention. The small bowel loops are normal caliber. Appendix is not seen. ABDOMINAL WALL: No significant hernia is appreciated. LYMPH NODES: Normal. VASCULAR: Unremarkable. PELVIC VISCERA: Unremarkable. OSSEOUS STRUCTURES: Mild degenerative disc changes with vacuum disc phenomena at L1-L2, L3-L4 disc levels. No aggressive lytic or sclerotic process. There is mild ventral spondylosis mid lumbar spine. IMPRESSION: 1. No acute intra-abdominal process seen. 2. Mild bladder wall thickening with enhancing nodule along the right posterior bladder wall and moderate bladder wall thickening along the base. No change from the last exam. Recommend cystoscopy. 3. Low-attenuation area in the left and right hepatic lobe are stable. 4. Mild constipation. Assessment & Plan Assessment & Plan (1) Bladder cancer: Code(s): C67.9 - Malignant neoplasm of bladder, unspecified Category: Medical (2) Chronic anticoagulation: Code(s): Z79.01 - intermodal dispatcher (current) use of anticoagulants Category: Medical Plan T1 high grade invasive lamina propria CIS Pt wants to think about Bladder instillations fu next week Patient Instructions: The patient had an opportunity to ask questions regarding treatment plan. The patient expressed understanding and agreement with the above treatment plan. The patient is aware they should contact our office by phone for worsening of their current condition or the appearance of new symptoms. Compliance is encouraged with any medications and followup testing that is ordered. It is a privilege to be allowed the opportunity to participate in the urologic care of your patient. If you have any questions or concerns regarding treatment for the above conditions please do not hesitate to contact me. The office telephone contact is [phone]. This note is constructed in part using voice recognition software. While every effort has been made to ensure accuracy printed circuit board panels trimmer errors may have been included. Yours sincerely, Mariano Sanchez MD Coding Level of Care Code Tele Est Pt Level 3 (63998) Diagnoses Bladder cancer C67.9 Chronic anticoagulation Z79.01
== END 2024-07-26 15:46 | disposition home or self-care (01) ==
LOC: HO.HUSH 15:15
PROVIDERS: PCP Internal Medicine; Visit Provider Urology
DX: C67.9 Malignant neoplasm of bladder, unspecified (principal); Z79.01 Long term (current) use of anticoagulants
CPT/HCPCS: 99442

== ENCOUNTER → 2024-07-26 15:15 | Outpatient (BNVA) | payer MEDICARE, BC, SELFPAY | PROVIDERS: PCP Internal Medicine; Visit Provider Urology ==

== ENCOUNTER 2024-08-06 15:36 | Outpatient (AMB) | payer MEDICARE, BC, SELFPAY ==
--- NOTE | 2024-08-06 15:36 | MHC.OFFVIS ---
Intake Visit Reasons: Follow up-TURBT Intake Note: Pt presents to the office today for a follow up TURBT. Allergies aspirin [ASA] Allergy (Intermediate, Verified 08/13/24 13:39) GI PAIN, upset stomach hazelnut Allergy (Unknown, Verified 08/13/24 13:39) Unknown shellfish derived Allergy (Unknown, Verified 08/13/24 13:39) Unknown divalproex sodium [From Depakote] Allergy (Verified 08/13/24 13:39) diarrhea, brain fog gluten Allergy (Verified 08/13/24 13:39) Unknown sesame seeds Allergy (Unknown, Uncoded 08/13/24 13:39) Unknown HPI Comments Details: 08/06/24--69-year-old female with a PMH significant for?HTN, paroxysmal AFib on Xarelto, hypothyroidism, recurrent UTIs, IBS, celiac disease, bipolar disorder. S/P TurBT on 06/26/24, She had stopped her Xarelto 4 days prior to procedure and then restarted on Monday 07/02. She was admitted to [facility] for hematuria on 07/06/24 and had cystoscopy evacuation of blood clots and fulguration of biopsied areas in the bladder. 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 Discussed treatment options to include bladder installations with BCG versus chemo agent. BCG is not available at [facility] currently, discussed scheduling bladder installations with gemcitabine and doceTaxol. We will obtain PET scan. 06/08/24--Bianca is a 68 y/o female here with complaints of hematuria and recurrent UTI's. States started about Feb, 2024. Her is present and gives most of the history. He states she was given 4 courses of antibiotics, nitrofurantoin. 03/2024 urine c/s - Ecoli. Sensitivities noted below. In review of chart: CTAPw/contrast - kidneys wnL, abnormal findings in bladder. UA nitrite positive- will empically treat with levaquin 500 mg daily. H/o nicotine use. Will send urine for culture and cytology. Renal US. Discussed cysto/TURBT, pt on anticoagulation, need Cardiology clearance. Office cystoscopy: papillary bladder tumor, right lateral wall. [facility] Medical History (Updated 08/21/24 @ 13:48 by Mariano Sanchez MD) Bladder cancer Acute blood loss anemia Recurrent UTI Bilateral dacryocystitis Fall Frequency of urination Gait instability UTI (urinary tract infection) Pre-syncope Irritable bowel syndrome with diarrhea Chronic atrial fibrillation Paroxysmal atrial fibrillation C. difficile colitis Morbid obesity due to excess calories Non-insulin dependent type 2 diabetes mellitus Weakness Leg edema Bipolar 1 disorder Vertigo PTSD (post-traumatic stress disorder) History of cardioversion Arthritis Hypothyroidism History of wheezing Diabetes mellitus HTN (hypertension) LBBB (left bundle branch block) PAF (paroxysmal atrial fibrillation) Surgical History History of cardiac radiofrequency ablation History of eye surgery Hx of section Hx of colonoscopy Hx of cholecystectomy Hx of arthroscopy of right knee Family History Father No problems noted. Mother No problems noted. Other Mental health disorder Substance use disorder Social History Household Members: Spouse and Family Household Members Other:: daughter + Housing: House Do you presently have visiting nurse or other home services: No Alcohol intake: former Comment: feels safe and has a lift at home Patient Tobacco Use Status: Former Tobacco user e-Cigarette/Vaping Use: Never Used Second Hand Smoke Exposure: No Advance Directives Date on File: 06/29/23 service: No Current occupational status: employed Sexual orientation: Straight/Heterosexual Cognitive needs: No Hearing needs: No Vision needs: Yes Review of Systems Const All systems reviewed & are unremarkable except as noted in HPI and below Reports no additional complaints Eyes Reports no additional complaints ENT Reports no additional complaints Card Reports no additional complaints Resp Reports no additional complaints GI Reports no additional complaints Reports as per HPI Musc Reports no additional complaints Skin/Breast Reports system reviewed and no additional complaints, except as documented Neuro Reports no additional complaints Psych Reports no additional complaints Endo Reports no additional complaints Serafin/Lymph Reports no additional complaints Aller/Immun Reports no additional complaints Telehealth Telehealth Telehealth Platform: [facility] Location of provider rendering services: practice address Location of patient: address on file Patient Identification confirmed using: Name, : Yes Telehealth method: voice only Patient verbally consented to treatment: Yes Patient verbally consented to billing insurance company: Yes Patient informed of any privacy concerns related to visit: Yes Minutes spent on Phone/Video with Pt.: 19 Results Reviewed Results Reviewed: Collected: 06/26/24 Location: [facility] Received: 06/26/24 Diagnosis A. Bladder, posterior wall, transurethral resection: Carcinoma in-situ. B. Bladder, random left lateral wall, biopsy: Chronic cystitis. C. Bladder, erythematous flat lesion right lateral wall, transurethral resection: Carcinoma in-situ. D. Bladder, Transurethral resection: - High-grade urothelial carcinoma, invasive into lamina propria. - Muscularis propria present. Bladder, transurethral resection/biopsy Procedure: Transurethral resection; multiple biopsies Tumor site: Not specified Histologic type: Urothelial carcinoma (CIS in two other biopsies) Histologic grade: High grade Muscularis propria: Present Extent of invasion: Lamina propria Lymphovascular invasion: Not identified Clinical History Bladder tumor Date of Service: 09/29/23 EXAMINATION: CT ABDOMEN AND PELVIS WITH CONTRAST CLINICAL INFORMATION: Abdominal pain, sepsis COMPARISON: CT abdomen and pelvis 09/03/2023 TECHNIQUE: Multidetector volumetric images were obtained from the superior aspect of the liver through the pubic symphysis following administration 85 mL of Omnipaque 350 intravenous contrast. Sagittal and coronal reformatted images were obtained on the technologist's workstation. Oral contrast: No This CT examination was performed using dose optimization techniques as appropriate, variously including the following: *Automated exposure control *Adjustment of mA and/or kV according to patient size (this includes techniques or standardized protocols for targeted exams where dose is matched to indication/reason for exam; i.e. extremities or head) *Use of iterative reconstruction technique DLP: 1693 mGy-cm FINDINGS: There is motion artifact throughout the exam limiting evaluation. LUNG BASES: The visualized lung bases are unremarkable. LIVER, GALLBLADDER, AND BILIARY TREE: The liver is normal in size, shape, with a low-attenuation area in the left hepatic and right hepatic lobe on axial slice 18/3 no focal hepatic lesion or biliary ductal dilatation is present. There are surgical dayday in the right upper quadrant from previous cholecystectomy. PANCREAS: Unremarkable. SPLEEN: Unremarkable. ADRENAL GLANDS: Unremarkable. KIDNEYS AND URETERS: The kidneys are normal in size, shape, and attenuation. No hydronephrosis, hydroureter, or calculi seen. No perinephric stranding. BLADDER: There is mild bladder wall thickening with enhancing 1.2 cm nodule along the right posterior bladder wall and moderate bladder wall thickening along the base. No radiopaque calculi seen. GASTROINTESTINAL TRACT: There is scattered stool and gas seen throughout the colon without distention. The small bowel loops are normal caliber. Appendix is not seen. ABDOMINAL WALL: No significant hernia is appreciated. LYMPH NODES: Normal. VASCULAR: Unremarkable. PELVIC VISCERA: Unremarkable. OSSEOUS STRUCTURES: Mild degenerative disc changes with vacuum disc phenomena at L1-L2, L3-L4 disc levels. No aggressive lytic or sclerotic process. There is mild ventral spondylosis mid lumbar spine. IMPRESSION: 1. No acute intra-abdominal process seen. 2. Mild bladder wall thickening with enhancing nodule along the right posterior bladder wall and moderate bladder wall thickening along the base. No change from the last exam. Recommend cystoscopy. 3. Low-attenuation area in the left and right hepatic lobe are stable. 4. Mild constipation. Assessment & Plan Assessment & Plan (1) Bladder cancer: Code(s): C67.9 - Malignant neoplasm of bladder, unspecified Category: Medical (2) Chronic anticoagulation: Code(s): Z79.01 - FPC (current) use of anticoagulants Category: Medical Plan PET CT, discussed Bladder instillations. Patient Instructions: The patient had an opportunity to ask questions regarding treatment plan. The patient expressed understanding and agreement with the above treatment plan. The patient is aware they should contact our office by phone for worsening of their current condition or the appearance of new symptoms. Compliance is encouraged with any medications and followup testing that is ordered. It is a privilege to be allowed the opportunity to participate in the urologic care of your patient. If you have any questions or concerns regarding treatment for the above conditions please do not hesitate to contact me. The office telephone contact is [phone]. This note is constructed in part using voice recognition software. While every effort has been made to ensure accuracy cushion gum applicator errors may have been included. Yours sincerely, Mariano Sanchez MD Coding Level of Care Code Tele Est Pt Level 4 (17269) Diagnoses Bladder cancer C67.9 Chronic anticoagulation Z79.01
== END 2024-08-06 16:30 | disposition home or self-care (01) ==
LOC: HO.HUSH 15:36
PROVIDERS: PCP Internal Medicine; Visit Provider Urology
DX: C67.8 Malignant neoplasm of overlapping sites of bladder (principal); Z79.01 Long term (current) use of anticoagulants
CPT/HCPCS: 99442

== ENCOUNTER → 2024-08-06 15:36 | Outpatient (BNVA) | payer MEDICARE, BC, SELFPAY | PROVIDERS: PCP Internal Medicine; Visit Provider Urology ==

== ENCOUNTER 2024-08-10 13:18 | Outpatient (REF) | payer MEDICARE, BC, SELFPAY ==
--- NOTE | ~2024-08-10 | XR_ITS ---
EXAMINATION: XR CHEST CLINICAL INFORMATION: Cough. COMPARISON: 10/08/2023 TECHNIQUE: 2 views of the chest were obtained. FINDINGS: There is no gross pneumothorax. Mild degenerative changes in the thoracic spine. Increased prominence of diffuse interstitial opacities, predominantly central. Cardiac silhouette remains enlarged. Trace right pleural effusion. XR/XR chest 2V IMPRESSION: Increased prominence of bilateral diffuse interstitial opacities, predominantly central. Cardiac silhouette remains enlarged. Trace right pleural effusion. Electronically signed by: Leeanna Escalera MD 08/15/2024 08:52 AM EDT
== END 2024-08-10 13:19 | disposition home or self-care (01) ==
LOC: HO.XRAY 13:18
PROVIDERS: Visit Provider Internal Medicine
DX: R05.8 Other specified cough (principal)
CPT/HCPCS: 71046

== ENCOUNTER 2024-08-13 13:34 | Outpatient (AMB) | payer MEDICARE, BC, SELFPAY ==
--- NOTE | 2024-08-13 13:37 | MHC.OFFWIV ---
Intake Vital Signs 08/13/24 13:39 Weight 240 lb BP 114/78 Blood Pressure Location Rt brachial Position Sitting Pulse 105 H Pulse Source Pulse Oximeter Temp 98.4 F Temp Source Oral Pulse Oximetry (%) 97 Oxygen Delivery Method Room Air Intake Visit Reasons: EP bad cold Intake Note: Patient here head congestion and blood shot eyes that started . Patient Tobacco Use Status: Former Tobacco user Allergies aspirin [ASA] Allergy (Intermediate, Verified 08/13/24 13:39) GI PAIN, upset stomach hazelnut Allergy (Unknown, Verified 08/13/24 13:39) Unknown shellfish derived Allergy (Unknown, Verified 08/13/24 13:39) Unknown divalproex sodium [From Depakote] Allergy (Verified 08/13/24 13:39) diarrhea, brain fog gluten Allergy (Verified 08/13/24 13:39) Unknown sesame seeds Allergy (Unknown, Uncoded 08/13/24 13:39) Unknown Do you need a note to return to daycare/school/sports/work: No HPI HPI Comments History of Present Illness Details Patient is a 69-year-old female complaining of 5 days of head congestion a dry cough and shortness of breath with exertion. She also states her eyes are burning and there bloodshot they been weeping a little bit of clear fluid. She denies any sinus pain, ear pain or fevers. She states she does have a history of tear duct issues and history of surgery on her tear ducts. She also tells me she has a history of AFib in usually runs about 90-110 beats per minute for her heart rate. She is on metoprolol and sees Dr. Mendez, she used to be on amiodarone but has been taken off the medication about a year ago. She tells me she did call her PCP last week about her cough and a chest x-ray was ordered, she had it done but it has not been read yet. She states she has been taking Tylenol and Zicam spray with mild relief. She tells me her daughter, whom she lives with, was diagnosed with pneumonia about 2 weeks ago and did need to be placed on antibiotics. COUNTS INCLUDE 234 BEDS AT THE [facility] Medical History Bladder cancer Acute blood loss anemia Recurrent UTI Bilateral dacryocystitis Fall Frequency of urination Gait instability UTI (urinary tract infection) Pre-syncope Irritable bowel syndrome with diarrhea Chronic atrial fibrillation Paroxysmal atrial fibrillation C. difficile colitis Morbid obesity due to excess calories Non-insulin dependent type 2 diabetes mellitus Weakness Leg edema Bipolar 1 disorder Vertigo PTSD (post-traumatic stress disorder) History of cardioversion Arthritis Hypothyroidism History of wheezing Diabetes mellitus HTN (hypertension) LBBB (left bundle branch block) PAF (paroxysmal atrial fibrillation) Surgical History History of cardiac radiofrequency ablation History of eye surgery Hx of section Hx of colonoscopy Hx of cholecystectomy Hx of arthroscopy of right knee Family History Father No problems noted. Mother No problems noted. Other Mental health disorder Substance use disorder Social History Household Members: Spouse and Family Household Members Other:: daughter + Housing: House Do you presently have visiting nurse or other home services: No Alcohol intake: former Comment: feels safe and has a lift at home Patient Tobacco Use Status: Former Tobacco user e-Cigarette/Vaping Use: Never Used Second Hand Smoke Exposure: No Advance Directives Date on File: 06/29/23 service: No Current occupational status: employed Sexual orientation: Straight/Heterosexual Cognitive needs: No Hearing needs: No Vision needs: Yes Review of Systems Const All systems reviewed & are unremarkable except as noted in HPI and below Physical Exam Vital Signs: Last Vital Signs Temp 98.4 F 08/13/24 13:39 Pulse 108 H 08/13/24 13:39 BP 114/78 08/13/24 13:39 Pulse Ox 94 08/13/24 13:39 Oxygen Delivery Method Room Air 08/13/24 13:39 Const General: cooperative, healthy appearing, comfortable and no acute distress Orientation/consciousness: patient oriented x3 Limitations: no limitations HEENT Head: Yes normal to inspection Ears: hearing grossly normal bilaterally, external ears normal and TM's normal bilaterally General nose exam: Normal external nose present, Normal nares present and No nasal discharge present Face and sinus: Yes normal facial exam and Yes sinuses nontender Mouth: Normal oral and palatal mucosa present and moist mucous membranes Throat: Yes tonsils normal, Yes uvula midline and Yes posterior oropharynx abnormal (Erythema) Eyes General: appearance normal, both eyes and all related structures Neck Neck: Yes normal visual inspection Resp Effort & Inspection: normal respiratory effort, able to speak in complete sentences, no respiratory distress, not tachypneic, no tripod positioning and no use of accessory muscles Auscultation: bronchovesicular breath sounds on the left Cardio Rate: regular rate Rhythm: regular rhythm Heart sounds: normal S1 and S2 Skin General skin exam: no rashes or lesions noted Neuro General: patient oriented x3 Extrem General: Yes normal to inspection and Yes no clubbing, cyanosis or edema Assessment & Plan Assessment & Plan (1) Lower respiratory infection (e.g., bronchitis, pneumonia, pneumonitis, pulmonitis): Code(s): J22 - Unspecified acute lower respiratory infection Plan: Vital signs are stable, according to patient her heart rate is typically around 106 beats per minute. Patient is well-appearing but with her daughter just having a lobar pneumonia and the pt had bronchovesicular lung sounds in the left side so I will get a stat chest x-ray. Plan See above Orders: Orders XR chest 2V Today R05.9 - Cough, unspecified Coding Level of Care Code Est Pt Level 4 (54056) Diagnoses Lower respiratory infection (e.g., bronchitis, pneumonia, pneumonitis, pulmonitis) J22
[2024-08-13 13:39] VITALS: BP 114/78; PULSE 105; TEMP 36.9; O2SAT 97
== END 2024-08-13 14:41 | disposition home or self-care (01) ==
PROVIDERS: PCP Internal Medicine; Visit Provider Physician Assistant
DX: J22 Unspecified acute lower respiratory infection (principal)

== ENCOUNTER → 2024-08-13 13:34 | Outpatient (BNVA) | payer MEDICARE, BC, SELFPAY | PROVIDERS: PCP Internal Medicine; Visit Provider Physician Assistant ==

== ENCOUNTER 2024-08-13 14:16 | Outpatient (REF) | payer MEDICARE, BC, SELFPAY ==
--- NOTE | ~2024-08-13 | XR_ITS ---
EXAMINATION: XR CHEST CLINICAL INFORMATION: Cough, unspecified COMPARISON: 10/08/2023 chest TECHNIQUE: 2 views of the chest were obtained. FINDINGS: The lungs are well expanded. No focal consolidation, interstitial pulmonary edema or pneumothorax. Stable mild enlargement of the cardiac silhouette. Probable small right pleural effusion based on slight blunting of the posterior sulcus on the lateral view. No acute bony abnormality. XR/XR chest 2V IMPRESSION: 1. No pneumonia. 2. Probable small right pleural effusion. Electronically signed by: Mary Jane Leonard MD 08/13/2024 03:52 PM EDT
== END 2024-08-13 14:17 | disposition home or self-care (01) ==
LOC: HO.HMGCX 14:16
PROVIDERS: PCP Internal Medicine; Visit Provider Physician Assistant
DX: J22 Unspecified acute lower respiratory infection (principal); R05.9 Cough, unspecified
CPT/HCPCS: 71046; 99212

== ENCOUNTER 2024-08-29 13:15 | Outpatient (AMB) | payer MEDICARE, BC, SELFPAY ==
--- NOTE | 2024-08-29 12:43 | A.OFFVIS_ITS ---
Intake Visit Reasons: bladder cancer treatment options. Intake Note: Patient is present for BLADDER CANCER TREATMENT OPTIONS Urology Medication:NONE Antibiotic Allergy:NONE Blood Thinner:NONE Contract Administrative Assistant Required: No Allergies aspirin [ASA] Allergy (Intermediate, Verified 08/29/24 13:08) GI PAIN, upset stomach hazelnut Allergy (Unknown, Verified 08/29/24 13:08) Unknown shellfish derived Allergy (Unknown, Verified 08/29/24 13:08) Unknown divalproex sodium [From Depakote] Allergy (Verified 08/29/24 13:08) diarrhea, brain fog gluten Allergy (Verified 08/29/24 13:08) Unknown sesame seeds Allergy (Unknown, Uncoded 08/29/24 13:08) Unknown Medication List - Last Reconciled 08/29/24 by Mariano Sanchez MD acetaminophen 1,000 mg PO DAILY PRN cholecalciferol (vitamin D3) 25 mcg PO DAILY 90 days eluxadoline (Viberzi) 75 mg PO BID ferrous sulfate 325 mg PO BIDWM levothyroxine 150 mcg PO DAILY@0600 metoprolol tartrate 75 mg PO BID 90 days rivaroxaban (Xarelto) 20 mg PO QPM trazodone 225 mg PO BEDTIME HPI Comments Details: [birth year]75-itai-old female with a PMH significant for?HTN, paroxysmal AFib on Xarelto, hypothyroidism, recurrent UTIs, IBS, celiac disease, bipolar disorder. S/P TurBT on 06/26/24, She had stopped her Xarelto 4 days prior to procedure and then restarted on Monday 07/02. She was admitted to [facility] for hematuria on 07/06/24 and had cystoscopy evacuation of blood clots and fulguration of biopsied areas in the bladder. The patient does not want to proceed with bladder instillations as discussed and wants to be referred for surgical management. Review of chart: 08/06/24--69-year-old female with a PMH significant for?HTN, paroxysmal AFib on Xarelto, hypothyroidism, recurrent UTIs, IBS, celiac disease, bipolar disorder. S/P TurBT on 06/26/24, She had stopped her Xarelto 4 days prior to procedure and then restarted on Monday 07/02. She was admitted to [facility] for hematuria on 07/06/24 and had cystoscopy evacuation of blood clots and fulguration of biopsied areas in the bladder. 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 Discussed treatment options to include bladder installations with BCG versus chemo agent. BCG is not available at [facility] currently, discussed scheduling bladder installations with gemcitabine and doceTaxol. We will obtain PET scan. 07/26/24--S/P TurBT on 06/26/24, She was admitted to [facility] for hematuria on 07/06/24 and had cystoscopy evacuation of blood clots and fulguration of biopsied areas in the bladder. 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 Discussed treatment options. The patient wants to think about what we discussed and wants a fu visit to go over further questions she may have. 06/08/24--Bianca is a 68 y/o female here with complaints of hematuria and recurrent UTI's. States started about Feb, 2024. Her is present and gives most of the history. He states she was given 4 courses of antibiotics, nitrofurantoin. 03/2024 urine c/s - Ecoli. Sensitivities noted below. In review of chart: CTAPw/contrast - kidneys wnL, abnormal findings in bladder. UA nitrite positive- will empically treat with levaquin 500 mg daily. H/o nicotine use. Will send urine for culture and cytology. Renal US. Discussed cysto/TURBT, pt on anticoagulation, need Cardiology clearance. Office cystoscopy: papillary bladder tumor, right lateral wall. [facility] Medical History Bladder cancer Acute blood loss anemia Recurrent UTI Bilateral dacryocystitis Fall Frequency of urination Gait instability UTI (urinary tract infection) Pre-syncope Irritable bowel syndrome with diarrhea Chronic atrial fibrillation Paroxysmal atrial fibrillation C. difficile colitis Morbid obesity due to excess calories Non-insulin dependent type 2 diabetes mellitus Weakness Leg edema Bipolar 1 disorder Vertigo PTSD (post-traumatic stress disorder) History of cardioversion Arthritis Hypothyroidism History of wheezing Diabetes mellitus HTN (hypertension) LBBB (left bundle branch block) PAF (paroxysmal atrial fibrillation) Surgical History History of cardiac radiofrequency ablation History of eye surgery Hx of section Hx of colonoscopy Hx of cholecystectomy Hx of arthroscopy of right knee Family History Father No problems noted. Mother No problems noted. Other Mental health disorder Substance use disorder Social History Household Members: Spouse and Family Household Members Other:: daughter + Housing: House Do you presently have visiting nurse or other home services: No Alcohol intake: former Comment: feels safe and has a lift at home Patient Tobacco Use Status: Former Tobacco user e-Cigarette/Vaping Use: Never Used Second Hand Smoke Exposure: No Advance Directives Date on File: 06/29/23 service: No Current occupational status: employed Sexual orientation: Straight/Heterosexual Cognitive needs: No Hearing needs: No Vision needs: Yes Review of Systems Const All systems reviewed & are unremarkable except as noted in HPI and below Reports no additional complaints Eyes Reports no additional complaints ENT Reports no additional complaints Card Reports no additional complaints Resp Reports no additional complaints GI Reports no additional complaints Reports as per HPI Musc Reports no additional complaints Skin/Breast Reports system reviewed and no additional complaints, except as documented Neuro Reports no additional complaints Psych Reports no additional complaints Endo Reports no additional complaints Serafin/Lymph Reports no additional complaints Aller/Immun Reports no additional complaints Telehealth Telehealth Telehealth Platform: [facility] Location of provider rendering services: practice address Location of patient: address on file Patient Identification confirmed using: Name, : Yes Telehealth method: voice only Patient verbally consented to treatment: Yes Patient verbally consented to billing insurance company: Yes Patient informed of any privacy concerns related to visit: Yes Minutes spent on Phone/Video with Pt.: 12 Results Reviewed Results Reviewed: Collected: 06/26/24 Location: [facility] Received: 06/26/24 Diagnosis A. Bladder, posterior wall, transurethral resection: Carcinoma in-situ. B. Bladder, random left lateral wall, biopsy: Chronic cystitis. C. Bladder, erythematous flat lesion right lateral wall, transurethral resection: Carcinoma in-situ. D. Bladder, Transurethral resection: - High-grade urothelial carcinoma, invasive into lamina propria. - Muscularis propria present. Bladder, transurethral resection/biopsy Procedure: Transurethral resection; multiple biopsies Tumor site: Not specified Histologic type: Urothelial carcinoma (CIS in two other biopsies) Histologic grade: High grade Muscularis propria: Present Extent of invasion: Lamina propria Lymphovascular invasion: Not identified Clinical History Bladder tumor Date of Service: 09/29/23 EXAMINATION: CT ABDOMEN AND PELVIS WITH CONTRAST CLINICAL INFORMATION: Abdominal pain, sepsis COMPARISON: CT abdomen and pelvis 09/03/2023 TECHNIQUE: Multidetector volumetric images were obtained from the superior aspect of the liver through the pubic symphysis following administration 85 mL of Omnipaque 350 intravenous contrast. Sagittal and coronal reformatted images were obtained on the technologist's workstation. Oral contrast: No This CT examination was performed using dose optimization techniques as appropriate, variously including the following: *Automated exposure control *Adjustment of mA and/or kV according to patient size (this includes techniques or standardized protocols for targeted exams where dose is matched to indication/reason for exam; i.e. extremities or head) *Use of iterative reconstruction technique DLP: 1693 mGy-cm FINDINGS: There is motion artifact throughout the exam limiting evaluation. LUNG BASES: The visualized lung bases are unremarkable. LIVER, GALLBLADDER, AND BILIARY TREE: The liver is normal in size, shape, with a low-attenuation area in the left hepatic and right hepatic lobe on axial slice 18/3 no focal hepatic lesion or biliary ductal dilatation is present. There are surgical dayday in the right upper quadrant from previous cholecystectomy. PANCREAS: Unremarkable. SPLEEN: Unremarkable. ADRENAL GLANDS: Unremarkable. KIDNEYS AND URETERS: The kidneys are normal in size, shape, and attenuation. No hydronephrosis, hydroureter, or calculi seen. No perinephric stranding. BLADDER: There is mild bladder wall thickening with enhancing 1.2 cm nodule along the right posterior bladder wall and moderate bladder wall thickening along the base. No radiopaque calculi seen. GASTROINTESTINAL TRACT: There is scattered stool and gas seen throughout the colon without distention. The small bowel loops are normal caliber. Appendix is not seen. ABDOMINAL WALL: No significant hernia is appreciated. LYMPH NODES: Normal. VASCULAR: Unremarkable. PELVIC VISCERA: Unremarkable. OSSEOUS STRUCTURES: Mild degenerative disc changes with vacuum disc phenomena at L1-L2, L3-L4 disc levels. No aggressive lytic or sclerotic process. There is mild ventral spondylosis mid lumbar spine. IMPRESSION: 1. No acute intra-abdominal process seen. 2. Mild bladder wall thickening with enhancing nodule along the right posterior bladder wall and moderate bladder wall thickening along the base. No change from the last exam. Recommend cystoscopy. 3. Low-attenuation area in the left and right hepatic lobe are stable. 4. Mild constipation. 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 Bah Pet CT ordered, is pending Orders: Referrals Urology Referral C67.9 - Malignant neoplasm of bladder, unspecified, Z79.01 - terminal block assembler (current) use of anticoagulants Patient Instructions: The patient had an opportunity to ask questions regarding treatment plan. The patient expressed understanding and agreement with the above treatment plan. The patient is aware they should contact our office by phone for worsening of their current condition or the appearance of new symptoms. Compliance is encouraged with any medications and followup testing that is ordered. It is a privilege to be allowed the opportunity to participate in the urologic care of your patient. If you have any questions or concerns regarding treatment for the above conditions please do not hesitate to contact me. The office telephone contact is [phone]. This note is constructed in part using voice recognition software. While every effort has been made to ensure accuracy quality review specialist errors may have been included. Yours sincerely, Mariano Sanchez MD Coding Level of Care Code Tele Est Pt Level 3 (45211) Diagnoses Bladder cancer C67.9 Chronic anticoagulation Z79.01
== END 2024-08-29 14:17 | disposition home or self-care (01) ==
LOC: HO.HUSH 13:16
PROVIDERS: PCP Internal Medicine; Visit Provider Urology
DX: C67.9 Malignant neoplasm of bladder, unspecified (principal); Z79.01 Long term (current) use of anticoagulants
CPT/HCPCS: 99442

== ENCOUNTER → 2024-08-29 13:15 | Outpatient (BNVA) | payer MEDICARE, BC, SELFPAY | PROVIDERS: PCP Internal Medicine; Visit Provider Urology ==

== ENCOUNTER 2024-09-09 22:04 | Inpatient (IN) | payer MEDICARE, BC, SELFPAY ==
--- NOTE | ~2024-09-09 | XR_ITS ---
EXAMINATION: XR CHEST CLINICAL INFORMATION: Dyspnea. COMPARISON: August 13, 2024 TECHNIQUE: 2 views of the chest were obtained. FINDINGS: Lung volumes are low. The cardiomediastinal silhouette is stable. There is mild diffuse interstitial prominence which was seen previously. There is no focal consolidation or evidence for significant pleural effusions. XR/XR chest 2V IMPRESSION: Low lung volumes. Mild diffuse interstitial prominence which was seen previously. This is nonspecific and may be partly technical and/or chronic. No focal consolidation. Electronically signed by: Sergey Beckford MD 09/10/2024 12:16 AM ELIZ[facility]
[2024-09-09 22:40] VITALS: BP 106/75; PULSE 131; RESP 18; TEMP 36.4; O2SAT 94; BMI 42.5
--- NOTE | 2024-09-09 23:19 | MHC.EDTECH ---
this tech attempted to obtain labs on pt. pt compliant with venipuncture but refused nasal swab. aerospace engineer aware
[2024-09-09 23:21] LABS: Basophils Percent Auto 0.6 % (0-2); Eosinophils Absolute Auto 0.1 X10*3/uL (0.0-0.4); Eosinophils Percent Auto 1.4 % (0-4); Hematocrit 32.7 % (37.0-47.0); Imm Gran Abs Auto 0.05 X10*3/uL (0.00-0.03); Imm Gran Pct Auto 0.7 % (0.0-0.4); Lymphocytes Absolute Auto 1.6 X10*3/uL (1.2-4.9); Lymphocytes Percent Auto 22.4 % (20-40); MANUAL DIFF FLAG NO; Mean Corpuscular HGB Conc 33.6 g/dl (31.0-35.0); Mean Corpuscular Hemoglobin 30.6 pg (27.0-33.0); Mean Corpuscular Volume 90.8 fL (80.0-98.0); Mean Platelet Volume 9.2 fL (9.4-12.3); Monocytes Absolute Auto 0.3 X10*3/uL (0.1-1.2); Monocytes Percent Auto 4.2 % (2-11); Neutrophils Absolute Auto 5.1 x10*3/uL (2.0-8.3); Neutrophils Percent Auto 70.7 % (45-73); Platelet Count 173 X10*3/uL (160-400); Red Cell Distribution Width 14.5 % (11.0-16.0); White Blood Count 7.2 X10*3/uL (4.8-10.8)
[2024-09-09 23:34] LABS: Alanine Aminotransferase 31 U/L (0-31); Albumin Level 3.5 g/dL (3.5-5.0); Alkaline Phosphatase 106 U/L (39-117); Anion Gap 17 (12-20); Aspartate Amino Transferase 23 U/L (5-31); Bilirubin Total 0.5 mg/dL (0.0-1.0); Blood Urea Nitrogen 13 mg/dL (9-16); Carbon Dioxide 20 mmol/L (22-29); Chloride 103 mmol/L (96-108); Creatinine Clr Calc Pharmacy 88.5; Estimated Glomerular Filt Rate > 60; Glucose Random 251 mg/dL (60-115); Potassium 3.8 mmol/L (3.3-5.1); Sodium 136 mmol/L (135-145); Total Protein 7.1 g/dL (6.5-8.0)
[2024-09-10] VITALS (17 sets, daily range): BP systolic 97–146; BP diastolic 61–94; PULSE 65–130; RESP 16–27; TEMP 36.3–37.1; O2SAT 94–99
--- NOTE | 2024-09-10 | ECG_ITS ---
Test Reason : ?atrial flutter Blood Pressure : / mmHG Vent. Rate : 107 BPM Atrial Rate : 127 BPM P-R Int : 000 ms QRS Dur : 128 ms QT Int : 388 ms P-R-T Axes : 000 -47 151 degrees QTc Int : 517 ms Atrial flutter with variable block Left axis deviation Non-specific intra-ventricular conduction block Nonspecific T wave abnormality Abnormal ECG When compared with ECG of 10-SEP-2024 03:59, No significant changes seen Referred By: Paul Stein Electronically Signed By:Paul Stein
--- NOTE | 2024-09-10 00:27 | ED.SOB ---
HPI - SOB/Dyspnea General Chief Complaint: Dyspnea Stated Complaint: ? Pneumonia Time Seen by Provider: 09/10/24 00:26 Source: patient Mode of arrival: ambulatory Limitations: no limitations History of Present Illness ED Provider: ebony JOY Narrative: Patient's history of atrial fibrillation diastolic heart failure persistent AFib on metoprolol 75 mg twice a day and Xarelto comes here for month of increased shortness a breath got worse in last 4 days patient used to be on diuretics before not taking anymore no chest pain no fever no chills no sore throat does feels short winded whenever she ambulates even with few steps did not feel prolonged tachycardic episode at home heart rate is 130-150 in ER it was 130 but patient did not feel any palpitation Related Data Home Medications ?Medication ?Instructions ?Recorded ?Confirmed trazodone 150 mg tablet 225 mg PO BEDTIME 12/16/23 08/29/24 acetaminophen 500 mg tablet 1,000 mg PO DAILY PRN Pain 07/06/24 08/29/24 levothyroxine 150 mcg tablet 150 mcg PO DAILY@0600 for disorder 07/06/24 08/29/24 of thyroid gland rivaroxaban 20 mg tablet (Xarelto) 20 mg PO QPM 07/06/24 08/29/24 Previous Rx's ?Medication ?Instructions ?Recorded cholecalciferol (vitamin D3) 25 25 mcg PO DAILY 90 days #90 caps 06/15/24 mcg (1,000 unit) capsule metoprolol tartrate 75 mg tablet 75 mg PO BID 90 days #180 tabs 06/25/24 ferrous sulfate 325 mg (65 mg 325 mg PO BIDWM #60 tabs 07/10/24 iron) tablet eluxadoline 75 mg tablet (Viberzi) 75 mg PO BID #60 tabs 07/19/24 Allergies Allergy/AdvReac Type Severity Reaction Status Date / Time aspirin [ASA] Allergy Intermediate GI PAIN, Verified 09/09/24 22:43 upset stomach hazelnut Allergy Unknown Unknown Verified 09/09/24 22:43 shellfish derived Allergy Unknown Unknown Verified 09/09/24 22:43 divalproex sodium Allergy diarrhea, Verified 09/09/24 22:43 [From Depakote] brain fog gluten Allergy Unknown Verified 09/09/24 22:43 sesame seeds Allergy Unknown Unknown Uncoded 08/29/24 13:08 Review of Systems Review of Systems: Yes all other systems are reviewed and are negative [facility] Past Medical History Medical History Bladder cancer Acute blood loss anemia Recurrent UTI Bilateral dacryocystitis Fall Frequency of urination Gait instability UTI (urinary tract infection) Pre-syncope Irritable bowel syndrome with diarrhea Chronic atrial fibrillation Paroxysmal atrial fibrillation C. difficile colitis Morbid obesity due to excess calories Non-insulin dependent type 2 diabetes mellitus Weakness Leg edema Bipolar 1 disorder Vertigo PTSD (post-traumatic stress disorder) History of cardioversion Arthritis Hypothyroidism History of wheezing Diabetes mellitus HTN (hypertension) LBBB (left bundle branch block) PAF (paroxysmal atrial fibrillation) Surgical History History of cardiac radiofrequency ablation History of eye surgery Hx of section Hx of colonoscopy Hx of cholecystectomy Hx of arthroscopy of right knee Family History Family History Father No problems noted. Mother No problems noted. Other Mental health disorder Substance use disorder Social History Social History Household Members: Spouse and Family Household Members Other:: daughter + Housing: House Do you presently have visiting nurse or other home services: No Alcohol intake: former Comment: feels safe and has a lift at home Patient Tobacco Use Status: Former Tobacco user Smoked in Last 30 Days: No e-Cigarette/Vaping Use: Never Used Second Hand Smoke Exposure: No Use of substances other than those prescribed or required for medical reasons: No Advance Directives: Yes Advance Directives on File: Yes Advance Directives Date on File: 06/29/23 service: No Current occupational status: employed Sexual orientation: Straight/Heterosexual Cognitive needs: No Hearing needs: No Vision needs: Yes Physical Exam Vital Signs: Vital Signs: Last Vital Signs Temp 98.7 F 09/10/24 05:50 Pulse 116 H 09/10/24 05:50 Resp 16 09/10/24 05:50 BP 97/68 09/10/24 05:50 Pulse Ox 97 09/10/24 05:50 O2 Del Method Nasal Cannula 09/10/24 05:50 O2 Flow Rate 3 09/10/24 05:50 BMI result Body Mass Index 42.5 Appearance: Alert. Oriented X3. No acute distress. Eyes: PERRLA, No Nystagmus ENT: Pharynx normal. Oral Mucosa moist Neck: Normal inspection. Neck supple. CVS: Tachycardia irregularly irregular. Pulses normal. Respiratory: No respiratory distress. Equal air entry bilateral, decreased air entry bilateral with few rales at the bases Abdomen: Soft and nontender. Bowel sounds are present, no mass palpable, no CVA tenderness Skin: Skin warm and dry. Normal skin color. Normal skin turgor. Extremities: No lower extremity edema. No calf tenderness Neuro: Oriented X 3. No motor deficit. No sensory deficit.No cerebellar signs , cranial nerves II-XII intact Medications Administered Generic Name Dose Route Start Last Admin Trade Name Freq PRN Reason Stop Dose Admin Diltiazem HCl 125 mg/ Sodium 125 mls @ 0 mls/hr 09/10/24 02:30 09/10/24 03:36 Chloride IVCONT 15 mg/hr .Q0M SELMA 15 mls/hr Titration Protocol Per Protocol Discontinued Medications Generic Name Dose Route Start Last Admin Trade Name Freq PRN Reason Stop Dose Admin Diltiazem HCl 10 mg 09/10/24 00:36 09/10/24 00:48 Diltiazem Hcl 50 Mg/10 Ml Vial IVPUSH 09/10/24 00:37 10 mg STAT STA Administration Diltiazem HCl 20 mg 09/10/24 01:43 09/10/24 01:48 Diltiazem Hcl 50 Mg/10 Ml Vial IVPUSH 09/10/24 01:44 20 mg STAT STA Administration Furosemide 20 mg 09/10/24 02:20 09/10/24 02:35 Furosemide 20 Mg/2 Ml Vial IVPUSH 09/10/24 02:21 20 mg ONCE ONE Administration Protocol Metoprolol Tartrate 5 mg 09/10/24 03:18 09/10/24 03:20 Metoprolol Tartrate 5 Mg/5 Ml Vial IVPUSH 09/10/24 03:19 5 mg ONCE ONE Administration Protocol Medical Decision Making Medical Decision Making [facility] Narrative: Patient with persistent AFib poorly controlled with increased shortness a breath workup showed heart failure patient used to take Lasix before but stopped likely the cause for increased shortness a breath started on Cardizem drip patient takes Lopressor at home will also give Lasix admit to medical floor Differential Diagnosis Differential Diagnoses: The differential diagnosis associated with the presentation includes AFib/diastolic heart failure Admission/Observation Consideration of admission/observation: Escalation of care including admission/observation considered Consult Healthcare Provider Management of the patient was discussed with: Hospitalist Lab Data MDM Lab Attestation statement: I reviewed the patient's lab results. 09/09/24 23:17 09/09/24 23:17 Labs: Lab Results 09/09/24 09/10/24 Range/Units 23:17 01:32 WBC 7.2 (4.8-10.8) X10*3/uL RBC 3.60 L D (4.20-5.50) X10*6/uL Hgb 11.0 L D (12.0-16.0) g/dl Hct 32.7 L D (37.0-47.0) % MCV 90.8 (80.0-98.0) fL MCH 30.6 (27.0-33.0) pg MCHC 33.6 (31.0-35.0) g/dl RDW 14.5 (11.0-16.0) % Plt Count 173 (160-400) X10*3/uL MPV 9.2 L (9.4-12.3) fL Immature Gran % (Auto) 0.7 H (0.0-0.4) % Neut % (Auto) 70.7 (45-73) % Lymph % (Auto) 22.4 (20-40) % [place] % (Auto) 4.2 (2-11) % Eos % (Auto) 1.4 (0-4) % Baso % (Auto) 0.6 (0-2) % Lymph # (Auto) 1.6 (1.2-4.9) X10*3/uL [place] # (Auto) 0.3 (0.1-1.2) X10*3/uL Eos # (Auto) 0.1 (0.0-0.4) X10*3/uL Baso # (Auto) 0.0 (0.0-0.2) X10*3/uL Abs Immat Gran (auto) 0.05 H (0.00-0.03) X10*3/uL Absolute Neuts (auto) 5.1 (2.0-8.3) x10*3/uL Absolute Nucleated RBC 0.000 (0.0-0.012) X10*3/uL Nucleated RBC % (auto) 0.0 (0.0-0.2) /100WBC PT 31.4 H (10.9-12.4) SEC INR 2.7 H (0.9-1.1) Sodium 136 (135-145) mmol/L Potassium 3.8 (3.3-5.1) mmol/L Chloride 103 (96-108) mmol/L Carbon Dioxide 20 L (22-29) mmol/L Anion Gap 17 (12-20) BUN 13 (9-16) mg/dL Creatinine 0.73 (0.5-1.4) mg/dL Estim Creat Clear Calc 88.5 Estimated GFR > 60 Random Glucose 251 H (60-115) mg/dL Calcium 9.0 D (8.4-10.2) mg/dL Total Bilirubin 0.5 (0.0-1.0) mg/dL AST 23 (5-31) U/L ALT 31 (0-31) U/L Alkaline Phosphatase 106 (39-117) U/L B-Natriuretic Peptide 568 H (<100) pg/mL Total Protein 7.1 (6.5-8.0) g/dL Albumin 3.5 (3.5-5.0) g/dL Independent Interpretation I performed an independent interpretation of an: EKG Interpretation: Atrial fibrillation with ventricular rate of 130 beats per minute wide complex QRS complex no acute ST-T changes no acute ischemia Radiology Impression Discussion of test interpretation with radiology: I have reviewed the radiologist's reading. Radiologist Impression: XR/XR chest 2V IMPRESSION: Low lung volumes. Mild diffuse interstitial prominence which was seen previously. This is nonspecific and may be partly technical and/or chronic. No focal consolidation. External Record Review External record reviewed: Inpatient record and Primary care record Critical Care Time Critical Care Time Critical Care Time: Yes Total Critical Care Time: 55 Attestation: The patient was critically ill with a high probability of imminent or life threatening deterioration. I spent greater than 60???minutes of discontinuous time evaluating the patient,delivering critical care at the bedside, discussing and evaluating pertinent data with consultants. Critical care time does not include time spent performing separately billable procedures or teaching. Total time spent performing critical care was 55???minutes. Discharge Plan Discharge Clinical Impression: Diastolic dysfunction with chronic heart failure, Atrial fibrillation with rapid ventricular response Patient Disposition: Admitted As Inpatient Print Language: Malaysian
[2024-09-10] MEDS: dilTIAZem HCL 50 MG/10 ML VIAL 10 MG IVPUSH (00:48)
--- NOTE | 2024-09-10 01:13 | ECG_ITS ---
Test Reason : SOB Blood Pressure : / mmHG Vent. Rate : 130 BPM Atrial Rate : 000 BPM P-R Int : 000 ms QRS Dur : 128 ms QT Int : 388 ms P-R-T Axes : 000 -48 158 degrees QTc Int : 571 ms Atrial flutter Left axis deviation Non-specific intra-ventricular conduction block Nonspecific T wave abnormality Abnormal ECG When compared with ECG of 09-JUL-2024 10:21, Atrial flutter present Referred By: Aries Galvez Electronically Signed By:Paul Stein
[2024-09-10 01:45] LABS: INTERNATIONAL NORM RATIO 2.7 (0.9-1.1); Prothrombin Time 31.4 SEC (10.9-12.4)
[2024-09-10] MEDS: dilTIAZem HCL 50 MG/10 ML VIAL 20 MG IVPUSH (01:48)
[2024-09-10 01:55] LABS: B Type Natriuretic Peptide 568 pg/mL (<100)
[2024-09-10] MEDS: Furosemide 20 MG/2 ML VIAL IVPUSH (02:35)
[2024-09-10] MEDS: dilTIAZem HCL 125 MG in 0.9 % Sodium Chloride 100 ML 10 MG IVCONT (02:40)
[2024-09-10] MEDS: Metoprolol Tartrate 5 MG/5 ML VIAL IVPUSH (03:20)
--- NOTE | 2024-09-10 03:54 | ECG_ITS ---
Test Reason : tachycardia Blood Pressure : / mmHG Vent. Rate : 130 BPM Atrial Rate : 000 BPM P-R Int : 000 ms QRS Dur : 136 ms QT Int : 382 ms P-R-T Axes : 000 -67 141 degrees QTc Int : 562 ms Atrial Flutter Left axis deviation Non-specific intra-ventricular conduction block Nonspecific T wave abnormality Abnormal ECG When compared with ECG of 10-SEP-2024 01:21, No significant change was found Referred By: Aries Galvez Electronically Signed By:Paul Stein
--- NOTE | 2024-09-10 06:30 | PC.NURSE ---
Dr Bonilla at bedside orders to continue Cardizem drip at 15mg/hr and monitor heart rate. If heart rate is sustained at 70's bpm, call Dr. Bonilla to discontinue the drip. Pt continues to be in Afib with HR fluctuations between 100-130's. Pt tolerating it well.
--- NOTE | 2024-09-10 06:36 | PM.IMHP ---
History of Present Illness Date of Service: 09/10/24 Attending physician on admission: Jacquie Ding Chief Complaint: Shortness of breaths Bianca Kwok is a very pleasant 69 years old woman with past medical history significant for AFib on Xarelto, HFpEF (low-normal EF 50-55%), bladder cancer s/p resection, and hypothyroidism presents to the emergency department complaining of shortness on breath that has been going on for the last several days but today got worse. Associated symptoms she reports palpitations and occasional chest pain. She did not report any cough, fevers chills. She did not report any headache or dizziness. Did not report any acute gastrointestinal or genitourinary symptoms including hematuria. Denied tobacco smoking, alcohol abuse or illicit drug use. She said that she has chronic decubitus wounds. In the ED, she was found to have tachycardia consistent with rapid AFib and tachypnea. Blood pressure and oxygen saturation normal on room air (on supplemental O2 for comfort). Blood workup showed no leukocytosis. Hemoglobin is 11.0 and platelets are normal. INR is 2.7. There are no electrolyte imbalances. Renal function and LFTs are normal. BNP is 56.8. CXR showed low lung volumes, mild diffuse interstitial prominence and no focal consolidations. ECG showed atrial fibrillation with rapid ventricular response, wide QRS (pt has hx of nonspecific intraventricular conduction block). ED tx: Diltiazem 30 mg IV (total), furosemide 20 mg IV, metoprolol 5 mg IV Cardizem IV infusion. Review of Systems Review of Systems: All 12 systems were reviewed and normal except as noted in HPI. [facility] Medical History Bladder cancer Acute blood loss anemia Recurrent UTI Bilateral dacryocystitis Fall Frequency of urination Gait instability UTI (urinary tract infection) Pre-syncope Irritable bowel syndrome with diarrhea Chronic atrial fibrillation Paroxysmal atrial fibrillation C. difficile colitis Morbid obesity due to excess calories Non-insulin dependent type 2 diabetes mellitus Weakness Leg edema Bipolar 1 disorder Vertigo PTSD (post-traumatic stress disorder) History of cardioversion Arthritis Hypothyroidism History of wheezing Diabetes mellitus HTN (hypertension) LBBB (left bundle branch block) PAF (paroxysmal atrial fibrillation) Family History Father No problems noted. Mother No problems noted. Other Mental health disorder Substance use disorder Surgical History History of cardiac radiofrequency ablation History of eye surgery Hx of section Hx of colonoscopy Hx of cholecystectomy Hx of arthroscopy of right knee Social History Household Members: Spouse and Family Household Members Other:: daughter + Housing: House Do you presently have visiting nurse or other home services: No Alcohol intake: former Comment: feels safe and has a lift at home Patient Tobacco Use Status: Former Tobacco user Smoked in Last 30 Days: No e-Cigarette/Vaping Use: Never Used Second Hand Smoke Exposure: No Use of substances other than those prescribed or required for medical reasons: No Advance Directives: Yes Advance Directives on File: Yes Advance Directives Date on File: 06/29/23 service: No Current occupational status: employed Sexual orientation: Straight/Heterosexual Cognitive needs: No Hearing needs: No Vision needs: Yes Meds Allergies Allergy/AdvReac Type Severity Reaction Status Date / Time aspirin [ASA] Allergy Intermediate GI PAIN, Verified 09/09/24 22:43 upset stomach hazelnut Allergy Unknown Unknown Verified 09/09/24 22:43 shellfish derived Allergy Unknown Unknown Verified 09/09/24 22:43 divalproex sodium Allergy diarrhea, Verified 09/09/24 22:43 [From Depakote] brain fog gluten Allergy Unknown Verified 09/09/24 22:43 sesame seeds Allergy Unknown Unknown Uncoded 08/29/24 13:08 Active Medications: Current Medications Acetaminophen (Acetaminophen 325 Mg Tablet) 975 mg PO Q6H PRN PRN Reason: Pain, Mild (Pain Scale 1-3), fever or headache Calcium Carbonate (Calcium Carbonate 750 Mg Tab.Chew) 750 mg PO Q4H PRN PRN Reason: Heartburn Diltiazem HCl 125 mg/ Sodium (Chloride) 125 mls @ 0 mls/hr IVCONT .Q0M SELMA; Protocol Last Titration: 09/10/24 03:36 Dose: 15 mg/hr, 15 mls/hr Magnesium Hydroxide (Milk Of Magnesia 30 Ml Oral.Susp) 30 ml PO DAILY PRN PRN Reason: Constipation Melatonin (Melatonin 3 Mg Tablet) 6 mg PO BEDTIME PRN PRN Reason: Insomnia Sodium Chloride (0.9 % Sodium Chloride Flush 3 Ml Syringe) 3 ml IVFLUSH QSHIFT SELMA Home Medications ?Medication ?Instructions ?Recorded ?Confirmed ?Last Taken ?Type trazodone 150 mg tablet 225 mg PO BEDTIME 12/16/23 08/29/24 07/05/24 History acetaminophen 500 mg tablet 1,000 mg PO DAILY PRN Pain 07/06/24 08/29/24 Unknown History levothyroxine 150 mcg tablet 150 mcg PO DAILY@0600 for disorder 07/06/24 08/29/24 07/05/24 History of thyroid gland rivaroxaban 20 mg tablet (Xarelto) 20 mg PO QPM 07/06/24 08/29/24 07/05/24 History Physical Exam Vital Signs and Narrative: Vital Signs: Last Vital Signs Temp 98.7 F 09/10/24 05:50 Pulse 116 H 09/10/24 05:50 Resp 16 09/10/24 05:50 BP 97/68 09/10/24 05:50 Pulse Ox 97 09/10/24 05:50 O2 Del Method Nasal Cannula 09/10/24 05:50 O2 Flow Rate 3 09/10/24 05:50 BMI result Body Mass Index 42.5 Constitutional - Awake and Alert, No apparent distress. Obese. Pleasant. Cooperative. HEENT - PER, EOMI. Heart - Irregular rhythm. Tachycardic. No murmurs. Lungs - Normal lung expansion, Normal respiratory effort, No respiratory distress. Mild tachypnea. Decreased breath sound at bases. No crackles. No rhonchi. Abdomen - NT / ND; +BS; No rebound or guarding - No CVA tenderness Extremities - no calf tenderness bilaterally, no swelling Musculoskeletal - Normal inspection, normal ROM Skin - Warm/Dry Neurological - Alert & oriented x3. No focal weakness grossly noted. Normal speech. Psychological - Appropriate affect Results Labs 09/09/24 23:17 09/09/24 23:17 Labs: Laboratory Results - last 24 hr 09/09/24 09/10/24 23:17 01:32 MCV 90.8 MCH 30.6 MCHC 33.6 RDW 14.5 Plt Count 173 MPV 9.2 L Immature Gran % (Auto) 0.7 H Neut % (Auto) 70.7 Lymph % (Auto) 22.4 [place] % (Auto) 4.2 Eos % (Auto) 1.4 Baso % (Auto) 0.6 Lymph # (Auto) 1.6 [place] # (Auto) 0.3 Eos # (Auto) 0.1 Baso # (Auto) 0.0 Abs Immat Gran (auto) 0.05 H Absolute Neuts (auto) 5.1 Absolute Nucleated RBC 0.000 Nucleated RBC % (auto) 0.0 PT 31.4 H INR 2.7 H Anion Gap 17 Estim Creat Clear Calc 88.5 Estimated GFR > 60 Random Glucose 251 H Calcium 9.0 D Total Bilirubin 0.5 AST 23 ALT 31 Alkaline Phosphatase 106 B-Natriuretic Peptide 568 H Total Protein 7.1 Albumin 3.5 Imaging Radiologist's Impressions: Impressions Chest X-Ray 09/09/24 22:45 IMPRESSION: Low lung volumes. Mild diffuse interstitial prominence which was seen previously. This is nonspecific and may be partly technical and/or chronic. No focal consolidation. Electronically signed by: Sergey Beckford MD 09/10/2024 12:16 AM [facility] Assessment and Plan (1) Atrial fibrillation with rapid ventricular response: Status: Acute (2) Acute on chronic diastolic CHF (congestive heart failure): Status: Acute Plan Bianca Kwok is a 69 y/o woman admitted with: Rapid AFib. Admit to hospitalist service. Telemetry. Continue diltiazem IV infusion. Continue Xarelto. Cardiology consult. Acute on chronic diastolic congestive heart failure. Continue Lasix IV. Obtain TTE. History of bladder cancer status post resection. Followed by Dr. Valadez. Hypothyroidism. Continue levothyroxine. Morbid obesity. BMI 42.5 kg/m2. Weight loss, diet and exercising counseling. DVT prophylaxis: Xarelto Code status: Full Patient will need hospitalization for at least 2 midnights for rapid AFib treatment with IV rate control agents, continuous cardiac monitoring and evaluation by subspecialty. Quality Stroke Does the patient have a stroke diagnosis?: No VTE Prior VTE?: No VTE Risk Level:: Medical - moderate - high VTE Device Contraindication: Treatment Not Indicated VTE Drug Contraindication: N/A - Med Ordered
--- NOTE | 2024-09-10 07:00 | CA_ITS ---
Transthoracic Echocardiogram Patient (Last, First, Middle): Bianca Kwok, Gender: Female Date of : 1955 Age: 69 Procedure Date: 09/10/2024 Procedure Type: Transthoracic Echocardiogram Location: ER Height: 160.02 cm Weight: 108.86 kg BSA: 2.09 m2 Heart Rate: bpm BP: 97 / 68 mmHg Head Of Housekeeping: Referring MD: Jacquie Ding MD Symptoms: History of CHF, SOB, elevated BNP Study Quality: Fair ECG Rhythm: Atrial Fibrillation Conclusions: - Normal left ventricular cavity size. There is mildly increased left ventricular wall thickness. The left ventricular systolic function is moderately decreased. The visually estimated ejection fraction is between 30-35%. - There is paradoxical septal motion consistent with a left bundle branch block. - Normal right ventricular cavity size. There is low normal right ventricular systolic function. - Significantly elevated right atrial pressure. Mild pulmonary hypertension is present Findings Procedure Information Contrast agent, definity, is being given per protocol without apparent complications. Left Ventricle Normal left ventricular cavity size. There is mildly increased left ventricular wall thickness. The left ventricular systolic function is moderately decreased. The visually estimated ejection fraction is between 30 35%. Regional wall motion abnormalities can not be excluded due to suboptimal endocardial definition. There is paradoxical septal motion consistent with a left bundle branch block. Diastolic function is indeterminate on the basis of available data. Right Ventricle Normal right ventricular cavity size. There is low normal right ventricular systolic function. Atria The left atrium is mildly dilated. Aortic Valve The aortic valve was not well visualized. There is no aortic valve stenosis. There is no aortic valve regurgitation. Mitral Valve The mitral valve appears normal. There is mild mitral valve regurgitation. There is no mitral valve stenosis. Pulmonic Valve The pulmonic valve is likely normal. Tricuspid Valve Normal tricuspid valve structure. There is trace tricuspid valve regurgitation. The right ventricular systolic pressure is 41 mmHg. Significantly elevated right atrial pressure. Mild pulmonary hypertension is present. Venous The inferior vena cava is dilated and does not collapse with inspiration. Pericardium/Pleural There is no evidence of pericardial effusion. Prior Study Comparison Changes noted compared to prior study. EF 30-35%, mild pulmonary hypertension. Measurements 2D Linear Measurements IVSd: 1.07 0.6-0.9/0.6-1.0 cm LVIDd: 4.82 3.9-5.3/4.2-5.9 cm LVIDd Index: 2.31 2.4-3.2/2.2-3.1 cm/m2 LVIDs: 4.12 2.0-3.6 cm LVPWd: 1.05 0.7-1.1 cm LA Diam: 4.40 2.7-3.8/3.0-4.0 cm LAIDs Index: 2.11 1.5-2.3 cm/m2 LV Mass: 231.17 67-162/88-224 g LV Mass Index: 110.61 43-95/49-115 g/m2 Mitral Valve MV Pk E: 1.35 MV Decel Time: 93.00 E'Lateral: 5.55 E'Medial: 5.44 E/E' Med: 24.80 E/E' Lat: 24.30 PHT: 27.00 MVA PHT: 8.15 Decel [place]: 14.56 Aortic Valve AoV Pk Familia: 0.94 AoV Mn Familia: 0.57 AoV VTI: 0.14 AoV Pk Grad: 4.00 Aov Mn Grad: 2.00 LVOT LVOT Pk Familia: 0.59 LVOT Mn Familia: 0.35 LVOT VTI: 0.10 LVOT Pk Grad: 1.00 LVOT Mn Grad: 1.00 Diastolic Function MV Pk E: 1.35 E'Medial: 5.44 E/E' Med: 24.80 E' Laterial: 5.55 E/E' Lat: 24.30 Right Ventricle TAPSE (mm): 21.00 TVS' Familia: 11.00 Tricuspid Valve TR Pk Familia: 2.53 TR Pk Grad: 26.00 RA Press: 15.00 RVSP: 41.00 Updated in Other Vendor System with Status of Final Paul Stein MD electronically signed on 09/10/2024 2:46:39 PM with status of Final
--- NOTE | 2024-09-10 07:57 | PC.NURSE ---
this nurse took over patient care at 7am, patient a&ox3, lungs clear/diminished, rr equal/non labored- pt on 3L NC not home O2 dependent 98% on 3L, clinical research monitor intact afib on monitor running between 88-90s. Cardizem drip running at 15mg/h, Dr Majano notified of pts hr as night nurse stated Dr. Bonilla wished for patient to remain on drip until pts hr was in the 70s- will discuss with Dr. Majano. pure wick intact-draining clear yellow urine- pt requesting commode as well. call mena within reach, will continue with plan of care.
--- NOTE | 2024-09-10 09:25 | P.PNIM_ITS ---
Subjective Subjective Date of Service: 09/10/24 <Sharon Feng PA-C - Last Filed: 09/10/24 09:35> 09/10/24 <David Majano MD - Last Filed: 09/10/24 12:38> Interval History: pt admitted this AM c/o SOB x2 weeks, found to be in a fib with RVR and CHF exacerbation. given lasix 20mg in ED and on diltiazem drip, feeling better. SOB improved. no chest pain or lightheadedness. no new concerns. <Sharon Feng PA-C - Last Filed: 09/10/24 09:35> Constitutional Constitutional: Denies chills and Denies headache(s) <ALEX Ewing Last Filed: 09/10/24 09:35> ENT Ears, Nose, Mouth, and Throat: Denies headache(s), Denies nasal congestion and Denies nasal discharge < Sharon Feng PA-C - Last Filed: 09/10/24 09:35> Cardiovascular Cardiovascular: Reports as per HPI and Denies chest pain <Sharon Feng PA-C - Last Filed: 09/10/24 09:35> Respiratory Respiratory: Reports cough <ALEX Ewing Last Filed: 09/10/24 09:35> Gastrointestinal Gastrointestinal: Denies nausea and Denies vomiting <Sharon Feng PA-C - Last Filed: 09/10/24 09:35> Genitourinary Genitourinary: Denies dysuria <Sharon Feng PA-C - Last Filed: 09/10/24 09:35> Neurologic Neurologic: Denies headache(s) <ALEX Ewing Last Filed: 09/10/24 09:35> Physical Exam 2 Vital Signs: Vital Signs: Last Vital Signs Temp 98.7 F 09/10/24 05:50 Pulse 116 H 09/10/24 05:50 Resp 16 09/10/24 05:50 BP 97/68 09/10/24 05:50 Pulse Ox 97 09/10/24 05:50 O2 Del Method Nasal Cannula 09/10/24 05:50 O2 Flow Rate 3 09/10/24 05:50 BMI result Body Mass Index 42.5 <Sharon Feng PA-C - Last Filed: 09/10/24 09:35> General: AOx3, no acute distress Resp: diminished bilaterally, no obvious wheezing or crackles CVS: irregularly irregular, tachycardic GI: +BS, NT, no distention Skin: Warm, dry Extremities: No edema Psych: Appropriate affect <Sharon Feng PA-C - Last Filed: 09/10/24 09:35> Objective Data Active Medications Acetaminophen (Acetaminophen 325 Mg Tablet) 975 mg PO Q6H PRN PRN Reason: Pain, Mild (Pain Scale 1-3), fever or headache Calcium Carbonate (Calcium Carbonate 750 Mg Tab.Chew) 750 mg PO Q4H PRN PRN Reason: Heartburn Furosemide (Furosemide 40 Mg/4 Ml Vial) 40 mg IVPUSH DAILY [facility]; Protocol Diltiazem HCl 125 mg/ Sodium (Chloride) 125 mls @ 0 mls/hr IVCONT .Q0M [facility]; Protocol Last Titration: 09/10/24 03:36 Dose: 15 mg/hr, 15 mls/hr Documented By: JUSTINE Magnesium Hydroxide (Milk Of Magnesia 30 Ml Oral.Susp) 30 ml PO DAILY PRN PRN Reason: Constipation Melatonin (Melatonin 3 Mg Tablet) 6 mg PO BEDTIME PRN PRN Reason: Insomnia Metoprolol Succinate (Metoprolol Succinate Er 50 Mg Tab.Er.24h) 50 mg PO BID [facility]; Protocol Sodium Chloride (0.9 % Sodium Chloride Flush 3 Ml Syringe) [facility] Last Admin: 09/10/24 07:53 Dose: Not Given Documented By: ELOISE Non-Admin Reason: IV Running <Sharon Feng PA-C - Last Filed: 09/10/24 09:35> Labs CBC & Chem 7: 09/09/24 23:17 09/09/24 23:17 <Sharon Feng PA-C - Last Filed: 09/10/24 09:35> Labs: Laboratory Results - last 24 hr 09/09/24 09/10/24 23:17 01:32 MCV 90.8 MCH 30.6 MCHC 33.6 RDW 14.5 Plt Count 173 MPV 9.2 L Immature Gran % (Auto) 0.7 H Neut % (Auto) 70.7 Lymph % (Auto) 22.4 [place] % (Auto) 4.2 Eos % (Auto) 1.4 Baso % (Auto) 0.6 Lymph # (Auto) 1.6 [place] # (Auto) 0.3 Eos # (Auto) 0.1 Baso # (Auto) 0.0 Abs Immat Gran (auto) 0.05 H Absolute Neuts (auto) 5.1 Absolute Nucleated RBC 0.000 Nucleated RBC % (auto) 0.0 PT 31.4 H INR 2.7 H Anion Gap 17 Estim Creat Clear Calc 88.5 Estimated GFR > 60 Random Glucose 251 H Calcium 9.0 D Total Bilirubin 0.5 AST 23 ALT 31 Alkaline Phosphatase 106 B-Natriuretic Peptide 568 H Total Protein 7.1 Albumin 3.5 <Sharon Feng PA-C - Last Filed: 09/10/24 09:35> Assessment and Plan (1) Atrial fibrillation with rapid ventricular response: Status: Acute <Sharon Feng PA-C - Last Filed: 09/10/24 09:35> (2) Acute on chronic diastolic CHF (congestive heart failure): Status: Acute <Sharon Feng PA-C - Last Filed: 09/10/24 09:35> (3) Chronic atrial fibrillation: Status: Acute <Sharon Feng PA-C - Last Filed: 09/10/24 09:35> Assessment and Plan: 69 yo F with acute on chronic a fib with RVR and CHF exacerbation a fib with RVR - continue telemetry - diltiazem drip and transition to metoprolol ER 50mg BID. D/C drip when HR is <100 - cardio consult acute on chronic CHF - BNP elevated at 568, will follow - TTE not yet done - IV lasix 40mg daily Bladder cancer s/p resection - followed by Dr. Valadez Hypothyroid - continue levothyroxine Morbid obestiy - weight loss, diet and exercise counseling VTE prohpy: xarelto Continued need for admission for IV diuresis and rate control of rapid a fib. <Sharon Feng PA-C - Last Filed: 09/10/24 09:35> Quality Stroke Does the patient have a stroke diagnosis?: No <Sharon Feng PA-C - Last Filed: 09/10/24 09:35> VTE Prior VTE?: No <Sharon Feng PA-C - Last Filed: 09/10/24 09:35> VTE Risk Level:: Medical - moderate - high <Sharon Feng PA-C - Last Filed: 09/10/24 09:35> VTE Device Contraindication: Treatment Not Indicated <Sharon Feng PA-C - Last Filed: 09/10/24 09:35> VTE Drug Contraindication: N/A - Med Ordered <Sharon Feng PA-C - Last Filed: 09/10/24 09:35>
[2024-09-10] MEDS: Metoprolol Succinate ER 50 MG TAB.ER.24H PO (09:35)
[2024-09-10] MEDS: dilTIAZem HCL 125 MG in 0.9 % Sodium Chloride 100 ML 15 MG IVCONT (09:46)
--- NOTE | 2024-09-10 09:48 | PC.NURSE ---
pt oob to bedside commode 2 person assist, pts hr increased to 133 upon getting oob to commode for bm, new dilt drip started, pt medicated with metoprolol per order. call mena within reach, family at bedside, will continue to monitor
--- NOTE | 2024-09-10 09:50 | PHA.MEDREC ---
Addendum entered by Rika Spencer RPh 09/10/24 09:53: reviewed by [facility]. Original Note: Pharmacy Consult ? Medication Reconciliation Pharmacy has completed the medication reconciliation. Spoke to patient and at bedside. was able to tell me what medications patient takes. states patient is not taking Viberzi 75 mg because they are having trouble getting. refills.
[2024-09-10] MEDS: Cholecalciferol (Vitamin D3) 25 MCG TABLET PO (10:38)
[2024-09-10] MEDS: Levothyroxine Sodium 150 MCG TABLET PO (10:38)
[2024-09-10] MEDS: Metoprolol Succinate ER 25 MG TAB.ER.24H PO (10:38)
--- NOTE | 2024-09-10 12:26 | P.CONCA_ITS ---
History of Present Illness History of Present Illness Date of Service: 09/10/24 Requesting physician: David Majano Chief complaint: Atrial flutter, CHF Narrative: Pleasant 69 year female with past medical history significant for hypertension, diabetes, diastolic heart failure, morbid obesity and persistent atrial fibrillation. She also has bladder cancer for which she underwent resection with bleeding in July. She was off Xarelto and it was resumed with no further bleeding recently. Hemoglobin has been stable. She is presenting with palpitations and shortness of breath ongoing for a week. She felt that she was progressively getting more and more short of breath. She has orthopnea and PND. No significant chest discomfort. EKGs reviewed and are showing a left bundle-branch block which has been present since July. Also she was thought to have atrial fibrillation but reviewing the EKGs it looks like she was in atrial flutter with variable block. She presented with heart rates in 130s quite regular and it looks like she has atrial flutter on the EKG with left bundle-branch block with QRS duration of 136 milliseconds. She has been on Cardizem drip since admission. She continues to be short of breath with minimal activities. She has mild peripheral edema but does have JVD and clinically is in heart failure. She is on Lasix 40 mg once a day. [facility] Past Medical History Medical History (Updated 09/10/24 @ 12:34 by Paul Stein MD) Atrial flutter Bladder cancer Acute blood loss anemia Recurrent UTI Bilateral dacryocystitis Fall Frequency of urination Gait instability UTI (urinary tract infection) Pre-syncope Irritable bowel syndrome with diarrhea Chronic atrial fibrillation Paroxysmal atrial fibrillation C. difficile colitis Morbid obesity due to excess calories Non-insulin dependent type 2 diabetes mellitus Weakness Leg edema Bipolar 1 disorder Vertigo PTSD (post-traumatic stress disorder) History of cardioversion Arthritis Hypothyroidism History of wheezing Diabetes mellitus HTN (hypertension) LBBB (left bundle branch block) PAF (paroxysmal atrial fibrillation) Family History Family History Father No problems noted. Mother No problems noted. Other Mental health disorder Substance use disorder Surgical History Surgical History History of cardiac radiofrequency ablation History of eye surgery Hx of section Hx of colonoscopy Hx of cholecystectomy Hx of arthroscopy of right knee Social History Social History Household Members: Spouse and Family Household Members Other:: daughter + Housing: House Do you presently have visiting nurse or other home services: No Alcohol intake: former Comment: feels safe and has a lift at home Patient Tobacco Use Status: Former Tobacco user Smoked in Last 30 Days: No e-Cigarette/Vaping Use: Never Used Second Hand Smoke Exposure: No Use of substances other than those prescribed or required for medical reasons: No Advance Directives: Yes Advance Directives on File: Yes Advance Directives Date on File: 06/29/23 Nutrition Risks: No Nutritional Risk service: No Current occupational status: employed Sexual orientation: Straight/Heterosexual Cognitive needs: No Hearing needs: No Vision needs: Yes Meds Allergies Allergy/AdvReac Type Severity Reaction Status Date / Time aspirin [ASA] Allergy Intermediate GI PAIN, Verified 09/09/24 22:43 upset stomach hazelnut Allergy Unknown Unknown Verified 09/09/24 22:43 shellfish derived Allergy Unknown Unknown Verified 09/09/24 22:43 divalproex sodium Allergy diarrhea, Verified 09/09/24 22:43 [From Depakote] brain fog gluten Allergy Unknown Verified 09/09/24 22:43 sesame seeds Allergy Unknown Unknown Uncoded 08/29/24 13:08 Active Medications: Current Medications Acetaminophen (Acetaminophen 325 Mg Tablet) 975 mg PO Q6H PRN PRN Reason: Pain, Mild (Pain Scale 1-3), fever or headache Calcium Carbonate (Calcium Carbonate 750 Mg Tab.Chew) 750 mg PO Q4H PRN PRN Reason: Heartburn Ferrous Sulfate (Ferrous Sulfate 324 Mg Tablet.Dr) 324 mg PO BIDWM [facility] Furosemide (Furosemide 40 Mg/4 Ml Vial) 40 mg IVPUSH BID [facility]; Protocol Levothyroxine Sodium (Levothyroxine Sodium 150 Mcg Tablet) 150 mcg PO DAILY@0600 [facility] Last Admin: 09/10/24 10:38 Dose: 150 mcg Magnesium Hydroxide (Milk Of Magnesia 30 Ml Oral.Susp) 30 ml PO DAILY PRN PRN Reason: Constipation Melatonin (Melatonin 3 Mg Tablet) 6 mg PO BEDTIME PRN PRN Reason: Insomnia Metoprolol Succinate (Metoprolol Succinate Er 25 Mg Tab.Er.24h) 75 mg PO BID [facility]; Protocol Rivaroxaban (Rivaroxaban 20 Mg Tablet) 20 mg PO DAILY@1700 [facility] Sodium Chloride (0.9 % Sodium Chloride Flush 3 Ml Syringe) 3 ml IVFLUSH QSHIFT [facility] Last Admin: 09/10/24 07:53 Dose: Not Given Trazodone HCl (Trazodone Hcl 100 Mg Tablet) 225 mg PO BEDTIME [facility] Vitamin D (Cholecalciferol (Vitamin D3) 25 Mcg Tablet) 25 mcg PO DAILY [facility] Last Admin: 09/10/24 10:38 Dose: 25 mcg Home Medications ?Medication ?Instructions ?Recorded ?Confirmed ?Last Taken ?Type trazodone 150 mg tablet 225 mg PO BEDTIME 12/16/23 09/10/24 09/09/24 History acetaminophen 500 mg tablet 1,000 mg PO DAILY PRN Pain 07/06/24 09/10/24 Unknown History levothyroxine 150 mcg tablet 150 mcg PO DAILY@0600 for disorder 07/06/24 09/10/24 09/09/24 History of thyroid gland rivaroxaban 20 mg tablet (Xarelto) 20 mg PO DAILY@1700 07/06/24 09/10/24 09/09/24 History metoprolol succinate 50 mg 75 mg PO BID 09/10/24 09/10/24 09/09/24 History tablet,extended release 24 hr Physical Exam 2 Vital Signs: Vital Signs: Last Vital Signs Temp 97.4 F 09/10/24 10:38 Pulse 125 H 09/10/24 10:38 Resp 22 H 09/10/24 10:38 BP 108/86 09/10/24 10:38 Pulse Ox 97 09/10/24 10:38 O2 Del Method Nasal Cannula 09/10/24 10:38 O2 Flow Rate 3 09/10/24 05:50 BMI result Body Mass Index 42.5 GENERAL APPEARANCE: Short of breath, on supplemental oxygen. Obese. NECK: no carotid bruit, + jugular venous distention. SKIN: no suspicious lesions, warm and dry. HEART: no murmurs, regular rate and rhythm. Tachycardic. LUNGS: Crackles at bases. ABDOMEN: soft, nontender. EXTREMITIES: Mild edema. PERIPHERAL PULSES: equal. NEUROLOGIC: No gross deficits, AAO X 3 Objective Labs and Meds 09/09/24 23:17 09/09/24 23:17 Lab results: Laboratory Results - last 24 hr 09/09/24 09/10/24 23:17 01:32 WBC 7.2 RBC 3.60 L D Hgb 11.0 L D Hct 32.7 L D MCV 90.8 MCH 30.6 MCHC 33.6 RDW 14.5 Plt Count 173 MPV 9.2 L Immature Gran % (Auto) 0.7 H Neut % (Auto) 70.7 Lymph % (Auto) 22.4 [place] % (Auto) 4.2 Eos % (Auto) 1.4 Baso % (Auto) 0.6 Lymph # (Auto) 1.6 [place] # (Auto) 0.3 Eos # (Auto) 0.1 Baso # (Auto) 0.0 Abs Immat Gran (auto) 0.05 H Absolute Neuts (auto) 5.1 Absolute Nucleated RBC 0.000 Nucleated RBC % (auto) 0.0 PT 31.4 H INR 2.7 H Sodium 136 Potassium 3.8 Chloride 103 Carbon Dioxide 20 L Anion Gap 17 BUN 13 Creatinine 0.73 Estim Creat Clear Calc 88.5 Estimated GFR > 60 Random Glucose 251 H Calcium 9.0 D Total Bilirubin 0.5 AST 23 ALT 31 Alkaline Phosphatase 106 B-Natriuretic Peptide 568 H Total Protein 7.1 Albumin 3.5 Imaging Radiologist's impression: Impressions Chest X-Ray 09/09/24 22:45 IMPRESSION: Low lung volumes. Mild diffuse interstitial prominence which was seen previously. This is nonspecific and may be partly technical and/or chronic. No focal consolidation. Electronically signed by: Sergey Beckford MD 09/10/2024 12:16 AM [facility] Assessment and Plan (1) Acute on chronic diastolic CHF (congestive heart failure): Status: Acute (2) Permanent atrial fibrillation: Status: Acute (3) Atrial flutter: Status: Acute Plan Pleasant 69-year-old female with background history of hypertension, diabetes, permanent atrial fibrillation on Xarelto and bladder cancer status post resection. She is on Xarelto. No recent bleeding. She is presenting with shortness of breath and palpitations. EKGs reviewed and to me it appears that she has been in atrial flutter with variable block on ECG is done in July. She presented with heart rate of 130 which was regular tachycardia and I think that is also flutter with two-to-one block. Clinically she is volume overloaded. Lasix 40 mg IV b.i.d.. Continue metoprolol succinate 75 mg twice a day. Stop the IV Cardizem drip and give digoxin load to 50 mcg times 4 6 hours apart. Echocardiography today to assess ejection fraction. Further recommendations based on the echo results. If echocardiography shows that her EF has been low then would consider cardioversion on her. Continue Xarelto uninterrupted. Thank you for allowing me to participate in the care of your patient. Please feel free to contact me if you have any questions. Procedures Date of Service Date of Service: 09/10/24
[2024-09-10] MEDS: Digoxin 0.5 MG/2 ML AMPUL 0.125 MG IVPUSH ×2 (12:47→19:39)
[2024-09-10] MEDS: Rivaroxaban 20 MG TABLET PO (16:31)
[2024-09-10] MEDS: Furosemide 40 MG/4 ML VIAL IVPUSH ×2 (16:31→20:22)
[2024-09-10] MEDS: 0.9 % Sodium Chloride Flush 3 ML SYRINGE IVFLUSH ×2 (16:31→19:40)
[2024-09-10] MEDS: Ferrous Sulfate 324 MG TABLET.DR PO (16:31)
[2024-09-10] MEDS: traZODone HCL 100 MG TABLET 225 MG PO (21:19)
[2024-09-10] MEDS: Amiodarone HCL 200 MG TABLET 400 MG PO (22:13)
[2024-09-11] VITALS (9 sets, daily range): BP systolic 112–147; BP diastolic 54–70; PULSE 64–93; RESP 18–20; TEMP 36.5–37.2; O2SAT 95–98
--- NOTE | 2024-09-11 | ECG_ITS ---
Test Reason : afib Blood Pressure : / mmHG Vent. Rate : 072 BPM Atrial Rate : 072 BPM P-R Int : 186 ms QRS Dur : 136 ms QT Int : 478 ms P-R-T Axes : 070 009 104 degrees QTc Int : 523 ms Normal sinus rhythm Left bundle branch block Abnormal ECG When compared with ECG of 10-SEP-2024 13:24, Sinus rhythm present now Referred By: Nettie Madison Electronically Signed By:Paul Stein
[2024-09-11] MEDS: Levothyroxine Sodium 150 MCG TABLET PO (04:58)
--- NOTE | 2024-09-11 06:17 | HO.SKINPHOTO ---
Location: Category: Stage: Length: Width: Depth: cm
[2024-09-11 06:58] LABS: MANUAL DIFF FLAG NO
[2024-09-11 07:01] LABS: Basophils Absolute Auto 0.1 X10*3/uL (0.0-0.2); Basophils Percent Auto 0.7 % (0-2); Eosinophils Absolute Auto 0.2 X10*3/uL (0.0-0.4); Eosinophils Percent Auto 2.2 % (0-4); Hemoglobin 10.7 g/dl (12.0-16.0); Imm Gran Abs Auto 0.05 X10*3/uL (0.00-0.03); Imm Gran Pct Auto 0.7 % (0.0-0.4); Lymphocytes Absolute Auto 1.5 X10*3/uL (1.2-4.9); Lymphocytes Percent Auto 19.4 % (20-40); Mean Corpuscular HGB Conc 33.4 g/dl (31.0-35.0); Mean Corpuscular Hemoglobin 31.1 pg (27.0-33.0); Mean Platelet Volume 9.6 fL (9.4-12.3); Monocytes Absolute Auto 0.4 X10*3/uL (0.1-1.2); Neutrophils Absolute Auto 5.5 x10*3/uL (2.0-8.3); Platelet Count 184 X10*3/uL (160-400); Red Blood Count 3.44 X10*6/uL (4.20-5.50); Red Cell Distribution Width 14.4 % (11.0-16.0); White Blood Count 7.6 X10*3/uL (4.8-10.8)
[2024-09-11 07:23] LABS: Anion Gap 16 (12-20); Blood Urea Nitrogen 15 mg/dL (9-16); Calcium 8.5 mg/dL (8.4-10.2); Chloride 101 mmol/L (96-108); Creatinine Clr Calc Pharmacy 93.6; Estimated Glomerular Filt Rate > 60; Glucose Random 182 mg/dL (60-115); Magnesium 1.5 mg/dL (1.6-2.6); Potassium 3.2 mmol/L (3.3-5.1); Sodium 141 mmol/L (135-145)
[2024-09-11 07:36] LABS: Carbon Dioxide 27 mmol/L (22-29)
--- NOTE | 2024-09-11 09:45 | MHC.CM.PN ---
IMM 09/11/24, Pt. lives with her and daughter, HCP is on file and confirmed: Fernanda. PCP confirmed: Adithya Gutierrez. Pt has home care 2 times a week for 3 hours from [place], which she pays [employer] for. She was in [facility] last year for 3 months. for DME, she has a walker, tub bench. Transport home at DC is from . DCP is home with services. CM to follow for DC needs.
[2024-09-11] MEDS: Furosemide 40 MG/4 ML VIAL IVPUSH ×2 (10:29→20:39)
[2024-09-11] MEDS: Cholecalciferol (Vitamin D3) 25 MCG TABLET PO (10:30)
[2024-09-11] MEDS: Amiodarone HCL 200 MG TABLET 400 MG PO ×2 (10:30→20:51)
[2024-09-11] MEDS: Ferrous Sulfate 324 MG TABLET.DR PO ×2 (10:30→15:56)
[2024-09-11] MEDS: 0.9 % Sodium Chloride Flush 3 ML SYRINGE IVFLUSH ×3 (10:30→20:39)
[2024-09-11] MEDS: Metoprolol Succinate ER 25 MG TAB.ER.24H 75 MG PO ×2 (10:30→20:51)
--- NOTE | 2024-09-11 13:01 | PM.PNCARD ---
Subjective Subjective Date of Service: 09/11/24 Interval history: Seen examined at bedside. Clinically improving. She has reverted to sinus rhythm after starting her on amiodarone 400 mg twice a day. Physical Exam Vital Signs: Last Vital Signs Temp 98.1 F 09/11/24 11:34 Pulse 75 09/11/24 11:34 Resp 20 09/11/24 11:34 BP 115/56 L 09/11/24 11:34 Pulse Ox 95 09/11/24 11:34 O2 Del Method Nasal Cannula 09/11/24 11:34 O2 Flow Rate 2 09/11/24 11:34 BMI result Body Mass Index 42.5 GENERAL APPEARANCE: Short of breath, on supplemental oxygen. Obese. NECK: no carotid bruit, + jugular venous distention. SKIN: no suspicious lesions, warm and dry. HEART: no murmurs, regular rate and rhythm. LUNGS: Clear to auscultation ABDOMEN: soft, nontender. EXTREMITIES: Mild edema. PERIPHERAL PULSES: equal. NEUROLOGIC: No gross deficits, AAO X 3 Objective Labs and Meds 09/11/24 05:56 09/11/24 05:56 Lab results: Laboratory Results - last 24 hr 09/11/24 05:56 WBC 7.6 RBC 3.44 L Hgb 10.7 L Hct 32.0 L MCV 93.0 MCH 31.1 MCHC 33.4 RDW 14.4 Plt Count 184 MPV 9.6 Immature Gran % (Auto) 0.7 H Neut % (Auto) 72.0 Lymph % (Auto) 19.4 L [place] % (Auto) 5.0 Eos % (Auto) 2.2 Baso % (Auto) 0.7 Lymph # (Auto) 1.5 [place] # (Auto) 0.4 Eos # (Auto) 0.2 Baso # (Auto) 0.1 Abs Immat Gran (auto) 0.05 H Absolute Neuts (auto) 5.5 Absolute Nucleated RBC 0.000 Nucleated RBC % (auto) 0.0 Sodium 141 Potassium 3.2 L Chloride 101 Carbon Dioxide 27 Anion Gap 16 BUN 15 Creatinine 0.69 Estim Creat Clear Calc 93.6 Estimated GFR > 60 Random Glucose 182 H Calcium 8.5 Magnesium 1.5 L Progress Note: A&P Assessment and plan (1) Atrial flutter: Status: Acute (2) Acute systolic heart failure: Status: Acute Plan Pleasant 69 year female who presented with acute heart failure and echocardiography has shown moderate LV dysfunction. She has left bundle-branch block as well as atrial flutter. Our plan was to cardiovert her but after starting amiodarone 400 mg twice a day she has converted to sinus rhythm. Continue amiodarone load for 10 days and transitioned to 200 mg daily dosing. No more Cardizem. Continue metoprolol at the same dose. Still volume overloaded and she should stay on Lasix 40 mg IV b.i.d. for now. Currently would avoid Jardiance as she plans to start chemotherapy and any UTI with active chemotherapy can be problematic. Starting low-dose Entresto. Thank you for allowing me to participate in the care of your patient. Please feel free to contact me if you have any questions. Time Spent With Patient Time: Total time managing care of this patient today ____ minutes. Progress Note: Quality Stroke Does the patient have a stroke diagnosis?: No Procedures Date of Service Date of Service: 09/11/24
[2024-09-11] MEDS: Rivaroxaban 20 MG TABLET PO (15:56)
--- NOTE | 2024-09-11 16:53 | HO.PM.IMPN ---
Subjective Subjective Date of Service: 09/11/24 Interval History: afib , chf Review of Systems sob seems improving nsr Physical Exam Vital Signs: Vital Signs: Last Vital Signs Temp 98.9 F 09/11/24 15:45 Pulse 70 09/11/24 15:45 Resp 20 09/11/24 15:45 BP 116/57 L 09/11/24 15:45 Pulse Ox 97 09/11/24 15:45 O2 Del Method Nasal Cannula 09/11/24 15:45 O2 Flow Rate 2 09/11/24 15:45 BMI result Body Mass Index 42.5 General: AOx3, no acute distress Resp: diminished bilaterally, no obvious wheezing or crackles CVS: irregularly irregular, tachycardic GI: +BS, NT, no distention Skin: Warm, dry Extremities: No edema Psych: Appropriate affect Objective Data Active Medications Acetaminophen (Acetaminophen 325 Mg Tablet) 975 mg PO Q6H PRN PRN Reason: Pain, Mild (Pain Scale 1-3), fever or headache Amiodarone HCl (Amiodarone Hcl 200 Mg Tablet) 400 mg PO BID [facility] Last Admin: 09/11/24 10:30 Dose: 400 mg Documented By: MICHELLE Calcium Carbonate (Calcium Carbonate 750 Mg Tab.Chew) 750 mg PO Q4H PRN PRN Reason: Heartburn Ferrous Sulfate (Ferrous Sulfate 324 Mg Tablet.Dr) 324 mg PO BIDWM [facility] Last Admin: 09/11/24 15:56 Dose: 324 mg Documented By: MICHELLE Furosemide (Furosemide 40 Mg/4 Ml Vial) 40 mg IVPUSH BID [facility]; Protocol Last Admin: 09/11/24 10:29 Dose: 40 mg Documented By: MICHELLE Levothyroxine Sodium (Levothyroxine Sodium 150 Mcg Tablet) 150 mcg PO DAILY@0600 [facility] Last Admin: 09/11/24 04:58 Dose: 150 mcg Documented By: ADRIENNE Magnesium Hydroxide (Milk Of Magnesia 30 Ml Oral.Susp) 30 ml PO DAILY PRN PRN Reason: Constipation Melatonin (Melatonin 3 Mg Tablet) 6 mg PO BEDTIME PRN PRN Reason: Insomnia Metoprolol Succinate (Metoprolol Succinate Er 25 Mg Tab.Er.24h) 75 mg PO BID [facility]; Protocol Last Admin: 09/11/24 10:30 Dose: 75 mg Documented By: MICHELLE Rivaroxaban (Rivaroxaban 20 Mg Tablet) 20 mg PO DAILY@1700 [facility] Last Admin: 09/11/24 15:56 Dose: 20 mg Documented By: MICHELLE Sacubitril/Valsartan (Sacubitril/Valsartan 1 Tab Tablet) 1 tab PO BID [facility]; Protocol Sodium Chloride (0.9 % Sodium Chloride Flush 3 Ml Syringe) 3 ml IVFLUSH QSHIFT [facility] Last Admin: 09/11/24 15:56 Dose: 3 ml Documented By: MICHELLE Trazodone HCl (Trazodone Hcl 100 Mg Tablet) 225 mg PO BEDTIME [facility] Last Admin: 09/10/24 21:19 Dose: 225 mg Documented By: ADRIENNE Vitamin D (Cholecalciferol (Vitamin D3) 25 Mcg Tablet) 25 mcg PO DAILY [facility] Last Admin: 09/11/24 10:30 Dose: 25 mcg Documented By: MICHELLE Labs 09/11/24 05:56 09/11/24 05:56 Labs: Laboratory Results - last 24 hr 09/11/24 05:56 MCV 93.0 MCH 31.1 MCHC 33.4 RDW 14.4 Plt Count 184 MPV 9.6 Immature Gran % (Auto) 0.7 H Neut % (Auto) 72.0 Lymph % (Auto) 19.4 L [place] % (Auto) 5.0 Eos % (Auto) 2.2 Baso % (Auto) 0.7 Lymph # (Auto) 1.5 [place] # (Auto) 0.4 Eos # (Auto) 0.2 Baso # (Auto) 0.1 Abs Immat Gran (auto) 0.05 H Absolute Neuts (auto) 5.5 Absolute Nucleated RBC 0.000 Nucleated RBC % (auto) 0.0 Anion Gap 16 Estim Creat Clear Calc 93.6 Estimated GFR > 60 Random Glucose 182 H Calcium 8.5 Magnesium 1.5 L Assessment and Plan (1) Atrial fibrillation with rapid ventricular response: Status: Acute (2) Acute on chronic diastolic CHF (congestive heart failure): Status: Acute (3) Chronic atrial fibrillation: Status: Acute Plan 69 yo F with acute on chronic a fib with RVR and CHF exacerbation a fib with RVR - continue telemetry cardio consult-converted to NSR, diltiazem drip stopped, continue amiodarone 400 b.i.d. for 10 days and then 200 mg daily, continue uninterrupted Xarelto, metoprolol. acute on chronic CHF - BNP elevated at 568, will follow - TTE not yet done - IV lasix 40mg bid Bladder cancer s/p resection - followed by Dr. Valadez Hypothyroid - continue levothyroxine Morbid obestiy - weight loss, diet and exercise counseling VTE prohpy: xarelto Continued need for admission for IV diuresis and rate control of rapid a fib. Quality Stroke Does the patient have a stroke diagnosis?: No VTE Prior VTE?: No VTE Risk Level:: Medical - moderate - high VTE Device Contraindication: Treatment Not Indicated VTE Drug Contraindication: N/A - Med Ordered
[2024-09-11] MEDS: Magnesium Oxide 400 MG TABLET 800 MG PO (17:05)
[2024-09-11] MEDS: Potassium Chloride ER 20 MEQ TAB.ER.PRT 40 MEQ PO (17:05)
[2024-09-11] MEDS: Sacubitril/Valsartan 24/26 1 TAB TABLET PO (20:52)
[2024-09-11] MEDS: Acetaminophen 325 MG TABLET 975 MG PO (20:53)
[2024-09-11] MEDS: traZODone HCL 100 MG TABLET 225 MG PO (21:48)
[2024-09-12] VITALS (7 sets, daily range): BP systolic 112–133; BP diastolic 55–60; PULSE 59–75; RESP 16–20; TEMP 36.3–36.8; O2SAT 94–97
[2024-09-12] MEDS: Levothyroxine Sodium 150 MCG TABLET PO (05:02)
[2024-09-12 09:40] LABS: Anion Gap 15 (12-20); Blood Urea Nitrogen 13 mg/dL (9-16); Calcium 8.4 mg/dL (8.4-10.2); Carbon Dioxide 29 mmol/L (22-29); Chloride 100 mmol/L (96-108); Creatinine Clr Calc Pharmacy 77.8; Estimated Glomerular Filt Rate > 60; Glucose Random 229 mg/dL (60-115); Magnesium 1.6 mg/dL (1.6-2.6); Potassium 3.5 mmol/L (3.3-5.1); Sodium 140 mmol/L (135-145)
[2024-09-12] MEDS: Metoprolol Succinate ER 25 MG TAB.ER.24H 75 MG PO ×2 (09:43→20:03)
[2024-09-12] MEDS: Ferrous Sulfate 324 MG TABLET.DR PO ×2 (09:44→17:29)
[2024-09-12] MEDS: Magnesium Oxide 400 MG TABLET 800 MG PO (09:44)
[2024-09-12] MEDS: Cholecalciferol (Vitamin D3) 25 MCG TABLET PO (09:44)
[2024-09-12] MEDS: Furosemide 40 MG/4 ML VIAL IVPUSH (09:44)
[2024-09-12] MEDS: Sacubitril/Valsartan 24/26 1 TAB TABLET PO ×2 (09:44→20:04)
[2024-09-12] MEDS: Amiodarone HCL 200 MG TABLET 400 MG PO ×2 (09:44→20:03)
[2024-09-12] MEDS: 0.9 % Sodium Chloride Flush 3 ML SYRINGE IVFLUSH ×2 (09:45→20:07)
[2024-09-12 09:46] LABS: B Type Natriuretic Peptide 289 pg/mL (<100)
--- NOTE | 2024-09-12 12:06 | PM.PNCARD ---
Subjective Subjective Date of Service: 09/12/24 Interval history: Seen examined at bedside. Clinically improving. Physical Exam Vital Signs: Last Vital Signs Temp 98.3 F 09/12/24 07:55 Pulse 64 09/12/24 07:55 Resp 20 09/12/24 07:55 BP 133/60 09/12/24 07:55 Pulse Ox 97 09/12/24 07:55 O2 Del Method Nasal Cannula 09/12/24 07:55 O2 Flow Rate 2 09/12/24 07:55 BMI result Body Mass Index 42.5 GENERAL APPEARANCE: In no acute distress. NECK: no carotid bruit, no jugular venous distention. SKIN: no suspicious lesions, warm and dry. HEART: no murmurs, regular rate and rhythm. LUNGS: Clear to auscultation ABDOMEN: soft, nontender. EXTREMITIES: No edema. PERIPHERAL PULSES: equal. NEUROLOGIC: No gross deficits, AAO X 3 Objective Labs and Meds 09/11/24 05:56 09/12/24 09:17 Lab results: Laboratory Results - last 24 hr 09/12/24 09:17 Sodium 140 Potassium 3.5 Chloride 100 Carbon Dioxide 29 Anion Gap 15 BUN 13 Creatinine 0.83 Estim Creat Clear Calc 77.8 Estimated GFR > 60 Random Glucose 229 H Calcium 8.4 Magnesium 1.6 B-Natriuretic Peptide 289 H Progress Note: A&P Assessment and plan (1) Atrial flutter: Status: Acute (2) Acute systolic heart failure: Status: Acute Plan Pleasant 69 year female who presented with acute heart failure and echocardiography has shown moderate LV dysfunction. She has left bundle-branch block as well as atrial flutter. Our plan was to cardiovert her but after starting amiodarone 400 mg twice a day she has converted to sinus rhythm. Continue amiodarone load for 10 days and transitioned to 200 mg daily dosing. No more Cardizem. Continue metoprolol at the same dose. Added Entresto and spironolactone. Avoid Jardiance for now. Lasix 40 mg daily. Can start the discharge process. Thank you for allowing me to participate in the care of your patient. Please feel free to contact me if you have any questions. Time Spent With Patient Time: Total time managing care of this patient today ____ minutes. Progress Note: Quality Stroke Does the patient have a stroke diagnosis?: No Procedures Date of Service Date of Service: 09/12/24
[2024-09-12] MEDS: Spironolactone 25 MG TABLET PO (12:07)
[2024-09-12] MEDS: Acetaminophen 325 MG TABLET 975 MG PO (12:12)
--- NOTE | 2024-09-12 14:25 | MHC.CM.PN ---
Per rounds and EMR review, pt is not ready for DC, she is requiring IV diuresis and rate control of rapid A fib. CM will follow for DC needs.
--- NOTE | 2024-09-12 15:36 | P.PNIM_ITS ---
Subjective Subjective Date of Service: 09/12/24 Interval History: chf Review of Systems sob somewhat improving denies any chest pain Physical Exam 2 Vital Signs: Vital Signs: Last Vital Signs Temp 98.3 F 09/12/24 12:00 Pulse 63 09/12/24 12:00 Resp 18 09/12/24 12:00 BP 119/55 L 09/12/24 12:00 Pulse Ox 96 09/12/24 12:00 O2 Del Method Room Air 09/12/24 12:00 O2 Flow Rate 2 09/12/24 07:55 BMI result Body Mass Index 42.5 General: AOx3, no acute distress Resp: diminished bilaterally, no obvious wheezing or crackles CVS: irregularly irregular. GI: +BS, NT, no distention Skin: Warm, dry Extremities: No edema Psych: Appropriate affect Objective Data Active Medications Acetaminophen (Acetaminophen 325 Mg Tablet) 975 mg PO Q6H PRN PRN Reason: Pain, Mild (Pain Scale 1-3), fever or headache Last Admin: 09/12/24 12:12 Dose: 975 mg Documented By: JERMAIN Amiodarone HCl (Amiodarone Hcl 200 Mg Tablet) 400 mg PO BID [facility] Last Admin: 09/12/24 09:44 Dose: 400 mg Documented By: JERMAIN Calcium Carbonate (Calcium Carbonate 750 Mg Tab.Chew) 750 mg PO Q4H PRN PRN Reason: Heartburn Ferrous Sulfate (Ferrous Sulfate 324 Mg Tablet.Dr) 324 mg PO BIDWM [facility] Last Admin: 09/12/24 09:44 Dose: 324 mg Documented By: JERMAIN Furosemide (Furosemide 40 Mg Tablet) 40 mg PO DAILY [facility]; Protocol Levothyroxine Sodium (Levothyroxine Sodium 150 Mcg Tablet) 150 mcg PO DAILY@0600 [facility] Last Admin: 09/12/24 05:02 Dose: 150 mcg Documented By: ADRIENNE Magnesium Hydroxide (Milk Of Magnesia 30 Ml Oral.Susp) 30 ml PO DAILY PRN PRN Reason: Constipation Magnesium Oxide (Magnesium Oxide 400 Mg Tablet) 800 mg PO DAILY [facility] Last Admin: 09/12/24 09:44 Dose: 800 mg Documented By: JERMAIN Melatonin (Melatonin 3 Mg Tablet) 6 mg PO BEDTIME PRN PRN Reason: Insomnia Metoprolol Succinate (Metoprolol Succinate Er 25 Mg Tab.Er.24h) 75 mg PO BID [facility]; Protocol Last Admin: 09/12/24 09:43 Dose: 75 mg Documented By: JERMAIN Rivaroxaban (Rivaroxaban 20 Mg Tablet) 20 mg PO DAILY@1700 [facility] Last Admin: 09/11/24 15:56 Dose: 20 mg Documented By: MICHELLE Sacubitril/Valsartan (Sacubitril/Valsartan 1 Tab Tablet) 1 tab PO BID [facility]; Protocol Last Admin: 09/12/24 09:44 Dose: 1 tab Documented By: JERMAIN Sodium Chloride (0.9 % Sodium Chloride Flush 3 Ml Syringe) 3 ml IVFLUSH QSHIFT [facility] Last Admin: 09/12/24 09:45 Dose: 3 ml Documented By: JERMAIN Spironolactone (Spironolactone 25 Mg Tablet) 25 mg PO DAILY [facility]; Protocol Last Admin: 09/12/24 12:07 Dose: 25 mg Documented By: JERMAIN Trazodone HCl (Trazodone Hcl 100 Mg Tablet) 225 mg PO BEDTIME [facility] Last Admin: 09/11/24 21:48 Dose: 225 mg Documented By: ADRIENNE Vitamin D (Cholecalciferol (Vitamin D3) 25 Mcg Tablet) 25 mcg PO DAILY [facility] Last Admin: 09/12/24 09:44 Dose: 25 mcg Documented By: JERMAIN Labs 09/11/24 05:56 09/12/24 09:17 Labs: Laboratory Results - last 24 hr 09/12/24 09:17 Anion Gap 15 Estim Creat Clear Calc 77.8 Estimated GFR > 60 Random Glucose 229 H Calcium 8.4 Magnesium 1.6 B-Natriuretic Peptide 289 H Assessment and Plan (1) Atrial fibrillation with rapid ventricular response: Status: Acute (2) Acute on chronic diastolic CHF (congestive heart failure): Status: Acute (3) Chronic atrial fibrillation: Status: Acute Plan 69 yo F with acute on chronic a fib with RVR and CHF exacerbation a fib with RVR - continue telemetry cardio consult-converted to NSR, diltiazem drip stopped, continue amiodarone 400 b.i.d. for 10 days and then 200 mg daily, continue uninterrupted Xarelto, metoprolol. acute on chronic CHF BNP [id number] 1.9 liter TTE ef is 30-35% IV lasix 40mg bid ,added entresto, spirolactone. Acute hypokalemia and hypomagnesemia repleted and resolved. Bladder cancer s/p resection - followed by Dr. Valadez Hypothyroid- continue levothyroxine Morbid obestiy - weight loss, diet and exercise counseling VTE prohpy: xarelto Continued need for admission for IV diuresis and rate control of rapid a fib. Quality Stroke Does the patient have a stroke diagnosis?: No VTE Prior VTE?: No VTE Risk Level:: Medical - moderate - high VTE Device Contraindication: Treatment Not Indicated VTE Drug Contraindication: N/A - Med Ordered
[2024-09-12] MEDS: Rivaroxaban 20 MG TABLET PO (17:29)
[2024-09-12] MEDS: Melatonin 3 MG TABLET 6 MG PO (20:03)
[2024-09-12] MEDS: traZODone HCL 100 MG TABLET 225 MG PO (20:04)
[2024-09-13] VITALS: BP 106/55; PULSE 60; RESP 16; TEMP 36.6; O2SAT 95
[2024-09-13 02:37] VITALS: BP 116/58; PULSE 83; O2SAT 96
[2024-09-13] MEDS: Levothyroxine Sodium 150 MCG TABLET PO (05:45)
[2024-09-13 07:17] VITALS: BP 114/55; PULSE 61; RESP 18; TEMP 36.9; O2SAT 97
[2024-09-13 08:37] VITALS: BP 133/57
[2024-09-13] MEDS: Sacubitril/Valsartan 24/26 1 TAB TABLET PO (08:37)
[2024-09-13] MEDS: Furosemide 40 MG TABLET PO (08:43)
[2024-09-13] MEDS: 0.9 % Sodium Chloride Flush 3 ML SYRINGE IVFLUSH (08:43)
[2024-09-13] MEDS: Cholecalciferol (Vitamin D3) 25 MCG TABLET PO (08:43)
[2024-09-13] MEDS: Magnesium Oxide 400 MG TABLET 800 MG PO (08:43)
[2024-09-13] MEDS: Spironolactone 25 MG TABLET PO (08:43)
[2024-09-13] MEDS: Ferrous Sulfate 324 MG TABLET.DR PO (08:43)
[2024-09-13] MEDS: Amiodarone HCL 200 MG TABLET 400 MG PO (08:43)
[2024-09-13] MEDS: Metoprolol Succinate ER 25 MG TAB.ER.24H 75 MG PO (08:43)
[2024-09-13] MEDS: Acetaminophen 325 MG TABLET 975 MG PO (11:23)
[2024-09-13 11:25] VITALS: BP 119/56; PULSE 61; RESP 18; TEMP 37.2; O2SAT 95
--- NOTE | 2024-09-13 11:44 | P.DS_ITS ---
DS: Providers Provider Date of Service: 09/13/24 Date of admission: 09/10/24 06:40 Date of discharge: 09/13/24 Primary care physician: Adithya Gutierrez MD Consults: 09/10/24 06:40 Consult to Cardiology Routine Consulting Provider: [facility] Reason for consultation: Rapid AFib Has provider been notified: Yes Attending physician on discharge: Nettie Madison Discharging clinician: Nettie Madison DS: Diagnosis Discharge Diagnosis (1) Atrial fibrillation with rapid ventricular response: Status: Acute (2) Acute on chronic diastolic CHF (congestive heart failure): Status: Acute (3) Chronic atrial fibrillation: Status: Acute DS: Summary Hospital Course Hospital Course: HPI:69 years old woman with past medical history significant for AFib on Xarelto, HFpEF (low-normal EF 50-55%), bladder cancer s/p resection, and hypothyroidism presents to the emergency department complaining of shortness on breath that has been going on for the last several days but today got worse. Associated symptoms she reports palpitations and occasional chest pain. She did not report any cough, fevers chills. She did not report any headache or dizziness. Did not report any acute gastrointestinal or genitourinary symptoms including hematuria. Denied tobacco smoking, alcohol abuse or illicit drug use. She said that she has chronic decubitus wounds. In the ED, she was found to have tachycardia consistent with rapid AFib and tachypnea. Blood pressure and oxygen saturation normal on room air (on supplemental O2 for comfort). Blood workup showed no leukocytosis. Hemoglobin is 11.0 and platelets are normal. INR is 2.7. There are no electrolyte imbalances. Renal function and LFTs are normal. BNP is 56.8. CXR showed low lung volumes, mild diffuse interstitial prominence and no focal consolidations. ECG showed atrial fibrillation with rapid ventricular response, wide QRS (pt has hx of nonspecific intraventricular conduction block). ED tx: Diltiazem 30 mg IV (total), furosemide 20 mg IV, metoprolol 5 mg IV Cardizem IV infusion. Hospital course:Patient came with short of breath admitted for acute on ch CHF (HFrEF) exacerbation, in addition has AFib with RVR: Patient was started on IV Lasix, amiodarone, IV Lasix, continued home dose metoprolol: With above supportive care patient seems to be improved significantly, diuresed well, heart rate is also under control. Patient will be going home with amiodarone 400 mg p.o. b.i.d. until 09/19/2024, then switched to amiodarone p.o. 200 mg daily on 09/20. CHF education given, if gains weight 2 lb or more in a week, might need outpati ent Lasix adjustment. PT evaluation pending plan: Continue amiodarone 400 mg p.o. b.i.d. until 09/19/2024, then switched to amiodarone p.o. 200 mg daily on 09/20. Lasix 40 mg daily, Entresto as prescribed, spironolactone 25 mg daily. Monitor renal function electrolytes out patiently . Patient is to follow-up outpatient with PCP, cardiology may arrange their own appointment. Above management discussed with the patient detail length she understand and in agreement with the above plan, time spent 40 minutes. Time Attestation Total time managing care of this patient today: 40 mintues. Discharge Coordination Time (in mins): 40 min Quality: Safe Use of Opioids Does Pt have an Active Cancer Diagnosis on the Problem List?: Yes Opioid Measure Date for [facility] Report: 08/14/24 [address]io[address] Time for [facility] Report: 15:55 Quality: Stroke Does the patient have a stroke diagnosis?: No Physical Exam Vital Signs: Vital Signs: Last Vital Signs Temp 98.9 F 09/13/24 11:25 Pulse 61 09/13/24 11:25 Resp 18 09/13/24 11:25 BP 119/56 L 09/13/24 11:25 Pulse Ox 95 09/13/24 11:25 O2 Del Method Room Air 09/13/24 11:25 O2 Flow Rate 2 09/12/24 07:55 BMI result Body Mass Index 42.5 General: AOx3, no acute distress Resp: air entry fair , no rales or wheezing CVS: irregularly irregular. GI: +BS, NT, no distention Skin: Warm, dry Extremities: No edema Psych: Appropriate affect DS: Data Data Completed and Pending Completed studies during hospitalization [Text1]: Procedures Control Bleeding in Gastrointestinal Tract, Via Natural or Artificial Opening Endoscopic (09/30/23) Control Bleeding in Genitourinary Tract, Via Natural or Artificial Opening Endoscopic (07/06/24) Excision of Ascending Colon, Via Natural or Artificial Opening Endoscopic, Diagnostic (09/30/23) Excision of Descending Colon, Via Natural or Artificial Opening Endoscopic, Diagnostic (09/30/23) Excision of Duodenum, Via Natural or Artificial Opening Endoscopic, Diagnostic (09/30/23) Excision of Ileum, Via Natural or Artificial Opening Endoscopic, Diagnostic (09/30/23) Excision of Sigmoid Colon, Via Natural or Artificial Opening Endoscopic, Diagnostic (09/30/23) Excision of Stomach, Pylorus, Via Natural or Artificial Opening Endoscopic, Diagnostic (09/30/23) Excision of Transverse Colon, Via Natural or Artificial Opening Endoscopic, Diagnostic (09/30/23) Extirpation of Matter from Bladder, Via Natural or Artificial Opening Endoscopic (07/06/24) Imaging Chest x-ray: Radiologist's impression: ITS Impressions Chest X-Ray 09/09/24 22:45 IMPRESSION: Low lung volumes. Mild diffuse interstitial prominence which was seen previously. This is nonspecific and may be partly technical and/or chronic. No focal consolidation. Electronically signed by: Sergey Beckford MD 09/10/2024 12:16 AM [facility] [place], [place] Discharge Plan Discharge Anticipated Discharge Date/Time: 09/13/24 11:33 Patient Disposition: Home Health Service Discharge Diagnosis: chf excerebation, afib Referrals: Danilo DOLL [Outside] - 1 Day ([facility]) Adithya Gutierrez MD [Primary Care Provider] - 1 Week Discharge Medications: New amiodarone 200 mg Tablet 400 mg PO BID Qty: 90 0RF Rx Instructions: amiodarone 400 mg po bid until 09/19/24 , then switch to amiodarone 200 mg daily Entresto 24-26 mg Tablet 1 tab PO BID Qty: 90 0RF Protocol: Hold for SBP< HOLD for SBP < : 90 spironolactone 25 mg Tablet 25 mg PO DAILY Qty: 90 0RF Protocol: Hold for SBP< HOLD for SBP < : 90 furosemide 40 mg Tablet 40 mg PO DAILY Qty: 90 0RF Protocol: Hold for SBP< HOLD for SBP < : 90 Continued acetaminophen 500 mg Tablet 1,000 mg PO DAILY PRN (Reason: Pain) levothyroxine 150 mcg tablet 150 mcg PO DAILY@0600 Xarelto 20 mg tablet 20 mg PO DAILY@1700 ferrous sulfate 325 mg (65 mg iron) tablet 325 mg PO BIDWM Qty: 60 2RF metoprolol succinate 50 mg tablet extended release 24 hr 75 mg PO BID cholecalciferol (vitamin D3) 25 mcg (1,000 unit) capsule 25 mcg PO DAILY 90 Days Qty: 90 0RF trazodone 150 mg tablet 225 mg PO BEDTIME Discharge Orders: Discharge Order (Routine); Ordered 09/13/24 Ordered By: Nettie Madison Diet: Advance to usual diet Activity on Discharge: As tolerated Stand Alone Forms: Patient Portal Discharge page Print Language: Kinyarwanda Care Plan Goals: Patient came with short of breath admitted for CHF exacerbation, in addition has AFib with RVR: Patient was started on IV Lasix, amiodarone, IV Lasix, continued home dose metoprolol: With above supportive care patient seems to be improved significantly, diuresed well, heart rate is also under control. Patient will be going home with amiodarone 400 mg p.o. b.i.d. until 09/19/2024, then switched to amiodarone p.o. 200 mg daily on 09/20. CHF education given, if gains weight 2 lb or more in a week, might need outpatient Lasix adjustment. PT evaluation pending Health Concerns: Continue amiodarone 400 mg p.o. b.i.d. until 09/19/2024, then switched to amiodarone p.o. 200 mg daily on 09/20. Lasix 40 mg daily, Entresto as prescribed, spironolactone 25 mg daily. Monitor renal function electrolytes out patiently . Patient is to follow-up outpatient with PCP, cardiology may arrange their own appointment. Plan of Treatment: As above. Assessment: As above. Discharge Date/Time: 09/13/24 13:58
--- NOTE | 2024-09-13 12:00 | MHC.CM.PN ---
PT MEDICALLY CLEARED FOR DC HOME W/NEW [facility] FOR SN/PT AND RESUMP OF HOME CARE [facility], FOR TRANSPORT
--- NOTE | 2024-09-13 12:16 | W.MHC.F2F ---
Service Date Service Date: 09/13/24 Encounter Date of encounter: 09/13/24 Encounter: chf Reasons for Services Signs and symptoms assessed: sob or chest pain Reason for penitentiary: medication management, medication treatment and teach disease management Reason for physical therapy: home safety and mobility, therapeutic exercises, restore joint function, gait/transfer training, assess need for DME, ADL training, energy conservation and other MD Overseeing Care: Adithya Gutierrez Homebound: Leaving the home is medically contraindicated at this time without the asist of a device and/or another person due th the listed conditions above and below. Reason homebound: weakness related to hospital stay Homebound supporting statement: Patient is generalized weak has multiple comorbidities including CHF, also had multiple new medications added: Need help for lab draws and going to the appointment., medical management, PT Certification: Based on the above findings, I certify that this patient is confined to the home and needs intermittent penitentiary care, physical therapy and/or speech therapy, or continues to need occupational therapy. The patient is under my care, and I have initiated the establishment of the plan of care. The patient will be followed by a physician who will periodically review the plan of care. Time Spent With Patient Time: Total time managing care of this patient today ____ minutes.
--- NOTE | 2024-09-13 12:21 | PM.PNCARD ---
Subjective Subjective Date of Service: 09/13/24 Interval history: Seen examined at bedside. Feeling good. Physical Exam Vital Signs: Last Vital Signs Temp 98.9 F 09/13/24 11:25 Pulse 61 09/13/24 11:25 Resp 18 09/13/24 11:25 BP 119/56 L 09/13/24 11:25 Pulse Ox 95 09/13/24 11:25 O2 Del Method Room Air 09/13/24 11:25 O2 Flow Rate 2 09/12/24 07:55 BMI result Body Mass Index 42.5 GENERAL APPEARANCE: In no acute distress. NECK: no carotid bruit, no jugular venous distention. SKIN: no suspicious lesions, warm and dry. HEART: no murmurs, regular rate and rhythm. LUNGS: Clear to auscultation ABDOMEN: soft, nontender. EXTREMITIES: No edema. PERIPHERAL PULSES: equal. NEUROLOGIC: No gross deficits, AAO X 3 Objective Labs and Meds 09/11/24 05:56 09/12/24 09:17 Progress Note: A&P Assessment and plan (1) Atrial flutter: Status: Acute (2) Acute systolic heart failure: Status: Acute Plan Pleasant 69 year female who presented with acute heart failure and echocardiography has shown moderate LV dysfunction. She has left bundle-branch block as well as atrial flutter. Our plan was to cardiovert her but after starting amiodarone 400 mg twice a day she has converted to sinus rhythm. Continue amiodarone load for 10 days and transitioned to 200 mg daily dosing. No more Cardizem. Continue metoprolol at the same dose. Added Entresto and spironolactone. Avoid Jardiance for now. Lasix 40 mg daily. Ejection fraction is 30 35% currently. She has bladder cancer and was being considered for chemotherapy. Low ejection fraction may affect the chemotherapy choice. Thank you for allowing me to participate in the care of your patient. Please feel free to contact me if you have any questions. Time Spent With Patient Time: Total time managing care of this patient today ____ minutes. Progress Note: Quality Stroke Does the patient have a stroke diagnosis?: No Procedures Date of Service Date of Service: 09/13/24
== END 2024-09-13 13:58 | disposition home health service (06) | DRG 308 ==
LOC: HO.ED 09-10 03:36 → HO.EDOVER 09-10 06:45 → HO.IMC 09-10 16:29
PROVIDERS: Admitting Provider Internal Medicine; Emergency Provider Internal Medicine; PCP Internal Medicine; Visit Provider Internal Medicine
DX: I48.19 Other persistent atrial fibrillation (principal); I50.33 Acute on chronic diastolic (congestive) heart failure; Z68.41 Body mass index [BMI] 40.0-44.9, adult; C67.9 Malignant neoplasm of bladder, unspecified; I44.7 Left bundle-branch block, unspecified; I11.0 Hypertensive heart disease with heart failure; E87.6 Hypokalemia; E83.42 Hypomagnesemia; E03.9 Hypothyroidism, unspecified; E66.01 Morbid (severe) obesity due to excess calories; Z71.3 Dietary counseling and surveillance; Z87.891 Personal history of nicotine dependence; Z79.01 Long term (current) use of anticoagulants; Z79.890 Hormone replacement therapy; Z79.899 Other long term (current) drug therapy
CPT/HCPCS: 36415; 71046; 80048; 80053; 83735; 83880; 85025; 85610; 93005; 93306; 97162; 99285; J1160; J1940; Q9957

== ENCOUNTER 2024-09-10 06:40 | Outpatient (BNV) | payer MEDICARE, BC, SELFPAY | END 2024-09-11 17:36 | PROVIDERS: Admitting Provider Internal Medicine; Emergency Provider Internal Medicine; PCP Internal Medicine; Visit Provider Internal Medicine Cardiovascular Disease | DX: R94.31 Abnormal electrocardiogram [ECG] [EKG] (principal) | CPT/HCPCS: 93010 ==

== ENCOUNTER → 2024-09-10 06:40 | Outpatient (BNV) | payer MEDICARE, BC, SELFPAY | PROVIDERS: Admitting Provider Internal Medicine; Emergency Provider Internal Medicine; PCP Internal Medicine; Visit Provider Internal Medicine | DX: I48.91 Unspecified atrial fibrillation (principal); I50.33 Acute on chronic diastolic (congestive) heart failure; I48.20 Chronic atrial fibrillation, unspecified | CPT/HCPCS: 99223; 99232; 99239; 99499; G0180 ==

== ENCOUNTER → 2024-09-10 06:40 | Outpatient (BNV) | payer MEDICARE, BC, SELFPAY | PROVIDERS: Admitting Provider Internal Medicine; Emergency Provider Internal Medicine; PCP Internal Medicine; Visit Provider Internal Medicine Cardiovascular Disease | DX: I50.33 Acute on chronic diastolic (congestive) heart failure (principal); I48.21 Permanent atrial fibrillation; I48.92 Unspecified atrial flutter; R94.31 Abnormal electrocardiogram [ECG] [EKG]; I34.0 Nonrheumatic mitral (valve) insufficiency; I44.7 Left bundle-branch block, unspecified; I27.20 Pulmonary hypertension, unspecified | CPT/HCPCS: 93010; 93306; 99223; 99233 ==

== ENCOUNTER 2024-09-17 09:58 | Outpatient (AMB) | payer MEDICARE, BC, SELFPAY ==
--- NOTE | 2024-09-16 15:48 | MHC.OFFVIS ---
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 Allergies aspirin [ASA] Allergy (Intermediate, Verified 09/25/24 10:02) GI PAIN, upset stomach hazelnut Allergy (Unknown, Verified 09/25/24 10:02) Unknown shellfish derived Allergy (Unknown, Verified 09/25/24 10:02) Unknown divalproex sodium [From Depakote] Allergy (Verified 09/25/24 10:02) diarrhea, brain fog gluten Allergy (Verified 09/25/24 10:02) Unknown sesame seeds Allergy (Unknown, Uncoded 09/17/24 10:01) Unknown Medication List - Last Reconciled 09/17/24 by Mariano Sanchez MD acetaminophen 1,000 mg PO DAILY PRN amiodarone 400 mg (2 x 200 mg) PO BID cholecalciferol (vitamin D3) 25 mcg PO DAILY 90 days ferrous sulfate 325 mg PO BIDWM furosemide 40 mg See Protocol PO DAILY levothyroxine 150 mcg PO DAILY@0600 metoprolol succinate ER 75 mg PO BID rivaroxaban (Xarelto) 20 mg PO DAILY@1700 sacubitril-valsartan 24-26 mg (Entresto) 1 tab See Protocol PO BID spironolactone 25 mg See Protocol PO DAILY trazodone 225 mg PO BEDTIME HPI Comments Details: 09/17/14--S/P TurBT on 06/26/24--pathology results 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 Treatment options discussed and The patient previously stated she wanted to be referred for surgery for cystectomy. PET CT was ordered on 08/11/24 and has not been done. Start bladder installations with gentamicin and doxorubicin Review of chart: 08[birth year]29[birth year]16-89-zbtv-old female with a PMH significant for?HTN, paroxysmal AFib on Xarelto, hypothyroidism, recurrent UTIs, IBS, celiac disease, bipolar disorder. S/P TurBT on 06/26/24, She had stopped her Xarelto 4 days prior to procedure and then restarted on Monday 07/02. She was admitted to [facility] for hematuria on 07/06/24 and had cystoscopy evacuation of blood clots and fulguration of biopsied areas in the bladder. The patient does not want to proceed with bladder instillations as discussed and wants to be referred for surgical management. 08/06/24--69-year-old female with a PMH significant for?HTN, paroxysmal AFib on Xarelto, hypothyroidism, recurrent UTIs, IBS, celiac disease, bipolar disorder. S/P TurBT on 06/26/24, She had stopped her Xarelto 4 days prior to procedure and then restarted on Monday 07/02. She was admitted to [facility] for hematuria on 07/06/24 and had cystoscopy evacuation of blood clots and fulguration of biopsied areas in the bladder. 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 Discussed treatment options to include bladder installations with BCG versus chemo agent. BCG is not available at [facility] currently, discussed scheduling bladder installations with gemcitabine and doceTaxol. We will obtain PET scan. 07/26/24--S/P TurBT on 06/26/24, She was admitted to [facility] for hematuria on 07/06/24 and had cystoscopy evacuation of blood clots and fulguration of biopsied areas in the bladder. 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 Discussed treatment options. The patient wants to think about what we discussed and wants a fu visit to go over further questions she may have. 06/08/24--Bianca is a 68 y/o female here with complaints of hematuria and recurrent UTI's. States started about Feb, 2024. Her is present and gives most of the history. He states she was given 4 courses of antibiotics, nitrofurantoin. 03/2024 urine c/s - Ecoli. Sensitivities noted below. In review of chart: CTAPw/contrast - kidneys wnL, abnormal findings in bladder. UA nitrite positive- will empically treat with levaquin 500 mg daily. H/o nicotine use. Will send urine for culture and cytology. Renal US. Discussed cysto/TURBT, pt on anticoagulation, need Cardiology clearance. Office cystoscopy: papillary bladder tumor, right lateral wall. [facility] Medical History (Updated 09/25/24 @ 11:10 by Adithya Gutierrez MD) Non-insulin dependent type 2 diabetes mellitus Atrial flutter Bladder cancer Acute blood loss anemia Recurrent UTI Bilateral dacryocystitis Fall Frequency of urination Gait instability UTI (urinary tract infection) Pre-syncope Irritable bowel syndrome with diarrhea Chronic atrial fibrillation Paroxysmal atrial fibrillation C. difficile colitis Morbid obesity due to excess calories Weakness Leg edema Bipolar 1 disorder Vertigo PTSD (post-traumatic stress disorder) History of cardioversion Arthritis Hypothyroidism History of wheezing Diabetes mellitus HTN (hypertension) LBBB (left bundle branch block) PAF (paroxysmal atrial fibrillation) Surgical History History of cardiac radiofrequency ablation History of eye surgery Hx of section Hx of colonoscopy Hx of cholecystectomy Hx of arthroscopy of right knee Family History Father No problems noted. Mother No problems noted. Other Mental health disorder Substance use disorder Social History Household Members: Spouse Household Members Other:: daughter + Housing: Condominium Do you presently have visiting nurse or other home services: Yes Alcohol intake: former Comment: feels safe and has a lift at home Patient Tobacco Use Status: Former Tobacco user e-Cigarette/Vaping Use: Never Used Second Hand Smoke Exposure: No Advance Directives Date on File: 06/29/23 service: No Current occupational status: employed Sexual orientation: Straight/Heterosexual Cognitive needs: No Hearing needs: No Vision needs: Yes Review of Systems Const All systems reviewed & are unremarkable except as noted in HPI and below Reports no additional complaints Eyes Reports no additional complaints ENT Reports no additional complaints Card Reports no additional complaints Resp Reports no additional complaints GI Reports no additional complaints Reports as per HPI Musc Reports no additional complaints Skin/Breast Reports system reviewed and no additional complaints, except as documented Neuro Reports no additional complaints Psych Reports no additional complaints Endo Reports no additional complaints Serafin/Lymph Reports no additional complaints Aller/Immun Reports no additional complaints Telehealth Tele[facility] Location of provider rendering services: practice address Location of patient: address on file Patient Identification confirmed using: Name, : Yes Telehealth method: voice only Patient verbally consented to treatment: Yes Patient verbally consented to billing insurance company: Yes Patient informed of any privacy concerns related to visit: Yes Minutes spent on Phone/Video with Pt.: 19 Results Reviewed Results Reviewed: Collected: 06/26/24 [facility] Received: 06/26/24 Diagnosis A. Bladder, posterior wall, transurethral resection: Carcinoma in-situ. B. Bladder, random left lateral wall, biopsy: Chronic cystitis. C. Bladder, erythematous flat lesion right lateral wall, transurethral resection: Carcinoma in-situ. D. Bladder, Transurethral resection: - High-grade urothelial carcinoma, invasive into lamina propria. - Muscularis propria present. Bladder, transurethral resection/biopsy Procedure: Transurethral resection; multiple biopsies Tumor site: Not specified Histologic type: Urothelial carcinoma (CIS in two other biopsies) Histologic grade: High grade Muscularis propria: Present Extent of invasion: Lamina propria Lymphovascular invasion: Not identified Clinical History Bladder tumor Date of Service: 09/29/23 EXAMINATION: CT ABDOMEN AND PELVIS WITH CONTRAST CLINICAL INFORMATION: Abdominal pain, sepsis COMPARISON: CT abdomen and pelvis 09/03/2023 TECHNIQUE: Multidetector volumetric images were obtained from the superior aspect of the liver through the pubic symphysis following administration 85 mL of Omnipaque 350 intravenous contrast. Sagittal and coronal reformatted images were obtained on the technologist's workstation. Oral contrast: No This CT examination was performed using dose optimization techniques as appropriate, variously including the following: *Automated exposure control *Adjustment of mA and/or kV according to patient size (this includes techniques or standardized protocols for targeted exams where dose is matched to indication/reason for exam; i.e. extremities or head) *Use of iterative reconstruction technique DLP: 1693 mGy-cm FINDINGS: There is motion artifact throughout the exam limiting evaluation. LUNG BASES: The visualized lung bases are unremarkable. LIVER, GALLBLADDER, AND BILIARY TREE: The liver is normal in size, shape, with a low-attenuation area in the left hepatic and right hepatic lobe on axial slice 18/3 no focal hepatic lesion or biliary ductal dilatation is present. There are surgical dayday in the right upper quadrant from previous cholecystectomy. PANCREAS: Unremarkable. SPLEEN: Unremarkable. ADRENAL GLANDS: Unremarkable. KIDNEYS AND URETERS: The kidneys are normal in size, shape, and attenuation. No hydronephrosis, hydroureter, or calculi seen. No perinephric stranding. BLADDER: There is mild bladder wall thickening with enhancing 1.2 cm nodule along the right posterior bladder wall and moderate bladder wall thickening along the base. No radiopaque calculi seen. GASTROINTESTINAL TRACT: There is scattered stool and gas seen throughout the colon without distention. The small bowel loops are normal caliber. Appendix is not seen. ABDOMINAL WALL: No significant hernia is appreciated. LYMPH NODES: Normal. VASCULAR: Unremarkable. PELVIC VISCERA: Unremarkable. OSSEOUS STRUCTURES: Mild degenerative disc changes with vacuum disc phenomena at L1-L2, L3-L4 disc levels. No aggressive lytic or sclerotic process. There is mild ventral spondylosis mid lumbar spine. IMPRESSION: 1. No acute intra-abdominal process seen. 2. Mild bladder wall thickening with enhancing nodule along the right posterior bladder wall and moderate bladder wall thickening along the base. No change from the last exam. Recommend cystoscopy. 3. Low-attenuation area in the left and right hepatic lobe are stable. 4. Mild constipation. 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 Start bladder installations with gentamicin and doxorubicin Patient Instructions: The patient had an opportunity to ask questions regarding treatment plan. The patient expressed understanding and agreement with the above treatment plan. The patient is aware they should contact our office by phone for worsening of their current condition or the appearance of new symptoms. Compliance is encouraged with any medications and followup testing that is ordered. It is a privilege to be allowed the opportunity to participate in the urologic care of your patient. If you have any questions or concerns regarding treatment for the above conditions please do not hesitate to contact me. The office telephone contact is [phone]. This note is constructed in part using voice recognition software. While every effort has been made to ensure accuracy hose mender errors may have been included. Yours sincerely, Mariano Sanchez MD Coding Level of Care Code Tele Est Pt Level 4 (49422) Diagnoses Bladder cancer C67.9 Chronic anticoagulation Z79.01
== END 2024-09-17 12:44 | disposition home or self-care (01) ==
LOC: HO.HUSH 09:58
PROVIDERS: PCP Internal Medicine; Visit Provider Urology
DX: C67.9 Malignant neoplasm of bladder, unspecified (principal); Z79.01 Long term (current) use of anticoagulants
CPT/HCPCS: 99442

== ENCOUNTER 2024-09-25 09:59 | Outpatient (AMB) | payer MEDICARE, BC, SELFPAY ==
[2024-09-25 10:01] VITALS: BP 116/78; PULSE 58; O2SAT 96; BMI 44.8
--- NOTE | 2024-09-25 10:01 | MHC.PC.OV ---
Vital Signs 09/25/24 10:01 Height 5 ft 3 in Weight 253 lb BMI 44.8 BP 116/78 Blood Pressure Location Rt brachial Position Sitting Pulse 58 Pulse Source Pulse Oximeter Pulse Oximetry (%) 96 Oxygen Delivery Method Room Air Intake Visit Reasons: Med follow up Allergies aspirin [ASA] Allergy (Intermediate, Verified 09/25/24 10:02) GI PAIN, upset stomach hazelnut Allergy (Unknown, Verified 09/25/24 10:02) Unknown shellfish derived Allergy (Unknown, Verified 09/25/24 10:02) Unknown divalproex sodium [From Depakote] Allergy (Verified 09/25/24 10:02) diarrhea, brain fog gluten Allergy (Verified 09/25/24 10:02) Unknown sesame seeds Allergy (Unknown, Uncoded 09/17/24 10:01) Unknown Medication List - Last Reconciled 09/25/24 by Adithya Gutierrez MD acetaminophen 1,000 mg PO DAILY PRN amiodarone 400 mg (2 x 200 mg) PO BID cholecalciferol (vitamin D3) 25 mcg PO DAILY 90 days ferrous sulfate 325 mg PO BIDWM furosemide 40 mg See Protocol PO DAILY levothyroxine 150 mcg PO DAILY@0600 metoprolol succinate ER 75 mg PO BID nystatin 1 appl topical DAILY 30 days rivaroxaban (Xarelto) 20 mg PO DAILY@1700 sacubitril-valsartan 24-26 mg (Entresto) 1 tab See Protocol PO BID spironolactone 25 mg See Protocol PO DAILY trazodone 225 mg PO BEDTIME Tobacco use date assessed: 09/25/24 Fall risk assessment: No Falls in past year Last assessed Fall Risk: 09/25/24 Dental Screening Dental Screen Date: 09/25/24 Did you have a dental visit in the last 12 months?: Yes Did you have a dental problem in the last 6 months where you did not have access to dental care?: No Was dental information given to patient?: Patient has dentist HPI Med follow up HPI Details Chief Complaint 69 year old female presents for hospital discharge follow-up, and management of atrial fibrillation with rapid ventricular response and diabetes. Assessment and Plan 69 year old female with a history of atrial fibrillation and chronic diastolic heart failure, diabetes, newly diagnosed bladder cancer, Presented to [facility] September 09 due to shortness a breath Patient was found to be in rapid ventricular response The patient's atrial fibrillation shows a ventricular rate of 130 bpm, with an EKG revealing atrial fibrillation and left bundle branch block, but no acute ST-T changes. The patient also has moderate left ventricular dysfunction with an ejection fraction of 35%. Anemia persists with a hemoglobin of 10.7, likely secondary to her chronic condition. Diabetes control is suboptimal with a hemoglobin A1c of 8.2 today, necessitating reevaluation of current treatment regimens. The patient also disclosed ongoing bladder cancer issues, with a PET scan scheduled and collaborative care being coordinated with cardiology and oncology. Cardiology note from September 13 reviewed Which recommend to avoid using Jardiance 1. Chronic Anemia - Continue iron supplementation. Monitor hemoglobin levels regularly. Consider possible anemia workup by hematology if condition persists. 2. Bladder Cancer - Upcoming PET scan and oncology consultation planned. Coordination between oncology and cardiology regarding any potential medication interactions affecting cardiac health. 3. Left Ventricular Dysfunction - On-going cardiac monitoring for worsening of symptoms or changes in ejection fraction. Coordination of care between cardiologists. 4. Insomnia With Depressive Episodes - Continue current regimen with quetiapine as patient was having manic episodes prescribed by psychiatric nurse. Continue psychiatric supervision to monitor efficacy and adjust medication as needed. 5. Atrial Fibrillation With Rapid Ventricular Response - Continue metoprolol at the current dose for rate control. Discontinue Cardizem. Regular cardiology evaluation recommended for management, including Dr. Bravo. Monitor ventricular response rate closely. 6. Hypothyroidism - Resume levothyroxine 150 mcg daily. Plan for thyroid function tests in approximately six weeks after medication stabilization. 7. Congestive Heart Failure Diastolic - Maintain current Lasix dosage for fluid management. Monitor heart failure symptoms. Follow-up with senior sales operations manager for potential adjustment of heart failure management strategy. 8. Type 2 Diabetes Mellitus - Discontinue Jardiance per senior sales operations manager's recommendation. Initiate new antihyperglycemic agent suitable for patient's cardiac status. Monitor blood glucose levels daily and track hemoglobin A1c Glipizide 2.5 mg started once a day, we will set up a telemedicine visit in 2 weeks for follow-up on that. Problem List - Atrial Fibrillation with Rapid Ventricular Response - Congestive Heart Failure (Diastolic) - Chronic Anemia - Type 2 Diabetes Mellitus - Hypothyroidism - Left Ventricular Dysfunction - Left Bundle Branch Block - Bladder Cancer - Insomnia with Depressive Episodes Patient Instructions - Maintain current medication regimen as discussed, including metoprolol, Lasix, and iron supplements. - Start new antihyperglycemic agent; instructions provided for blood sugar monitoring. - Resume levothyroxine 150 mcg daily, and expect lab work in six weeks. - Continue monitoring symptoms of heart failure and report worsening symptoms. - Remain in contact with cardiology and oncology for follow-up appointments. - Monitor mental health and continue psychiatric medications. - Appointments are planned for ongoing care regarding bladder cancer. - Symptom or condition changes should be reported promptly. - Attendance at all scheduled follow-ups, especially for PET scan, is vital. [facility] Medical History (Updated 09/25/24 @ 11:10 by Adithya Gutierrez MD) Non-insulin dependent type 2 diabetes mellitus Atrial flutter Bladder cancer Acute blood loss anemia Recurrent UTI Bilateral dacryocystitis Fall Frequency of urination Gait instability UTI (urinary tract infection) Pre-syncope Irritable bowel syndrome with diarrhea Chronic atrial fibrillation Paroxysmal atrial fibrillation C. difficile colitis Morbid obesity due to excess calories Weakness Leg edema Bipolar 1 disorder Vertigo PTSD (post-traumatic stress disorder) History of cardioversion Arthritis Hypothyroidism History of wheezing Diabetes mellitus HTN (hypertension) LBBB (left bundle branch block) PAF (paroxysmal atrial fibrillation) Surgical History History of cardiac radiofrequency ablation History of eye surgery Hx of section Hx of colonoscopy Hx of cholecystectomy Hx of arthroscopy of right knee Family History Father No problems noted. Mother No problems noted. Other Mental health disorder Substance use disorder Social History Household Members: Spouse Household Members Other:: daughter + Housing: Condominium Do you presently have visiting nurse or other home services: Yes Alcohol intake: former Comment: feels safe and has a lift at home Patient Tobacco Use Status: Former Tobacco user e-Cigarette/Vaping Use: Never Used Second Hand Smoke Exposure: No Advance Directives Date on File: 06/29/23 service: No Current occupational status: employed Sexual orientation: Straight/Heterosexual Cognitive needs: No Hearing needs: No Vision needs: Yes Questionnaire PHQ-9 Over the last 2 weeks, how often have you been bothered by any of the following problems? 1. Little interest or pleasure in doing things: not at all 2. Feeling down, depressed, or hopeless: not at all 3. Trouble falling or staying asleep, or sleeping too much: several days 4. Feeling tired or having little energy: not at all 5. Poor appetite or overeating: not at all 6. Feeling bad about yourself - or that you are a failure or have let yourself or your family down: not at all 7. Trouble concentrating on things, such as reading the newspaper or watching television: not at all 8. Moving or speaking so slowly that other people could have noticed. Or the opposite - being so fidgety or restless that you have been moving around a lot more than usual: not at all 9. Thoughts that you would be better off or of hurting yourself in some way: not at all Total score: 1 Depression Screening Interpretation: Negative Depression Screening Done: Yes 79813 - PHQ-9 Billing: Yes Source: Developed by Drs. Galo Triplett, Lavern Israel, Darion Jravis and colleagues, with an educational lisette from [employer]. Thrive Questionnaire Date Thrive assessed: 09/25/24 I am a: Parent/Caregiver What is your living situation today?: I have a steady place to live Within the past 12 months, did the food you bought not last and you didn't have the money to get more?: Never true Within the past 12 months, did you worry whether your food would run out before you got money to buy more?: Never true Do you have trouble paying for medicines?: No Do you have trouble getting transportation to medical appointments?: No Do you have trouble paying your heating and electricity bill?: No Do you have trouble taking care of your child, family member or friend?: No Do you have trouble with day-to-day activities such as bathing, preparing meals, shopping, managing finances, etc.?: No Are you currently unemployed and looking for a job?: No Are you interested in more education?: No Please select the resources that you would like help with: None Currently or been in a relationship where the following occur: No concerns reported THRIVE Score: 0 AUDIT C Alcohol Use Questionnaire (AUDIT-C) 1. How often do you have a drink containing alcohol?: Never 3. How often do you have six or more drinks on one occasion?: Never Total Score: 0 Score Reviewed/Action Taken: Yes ZAID-7 AMB Questionnaire ZAID-7 Date ZAID - 7 assessed: 09/25/24 Feeling nervous, anxious, or on edge: 0 = Not at all Not being able to stop or control worryin = Not at all Worrying too much about different things: 0 = Not at all Trouble relaxin = Not at all Being so restless that it is hard to sit still: 0 = Not at all Becoming easily annoyed or irritable: 0 = Not at all Feeling afraid as if something awful might happen: 0 = Not at all Total ZAID-7 score (0-4 normal; 5-9 mild; 10-14 moderate; 15-21 severe): 0 Source: Developed by Drs. Galo Triplett, Lavern Israel, Darion Jarvis and colleagues, with an educational lisette from [employer]. ZAID-7 Assessment Billing ZAID-7 Assessment Tool: ZAID-7 Assessment 25226 Review of Systems Const Denies chills and Denies fever(s) ENT Denies epistaxis and Denies nasal discharge Card Denies chest pain Resp Denies chest congestion, Denies cough and Denies hemoptysis GI Denies diarrhea and Denies nausea Skin/Breast Denies rash Neuro Reports no additional complaints Psych Reports no additional complaints Endo Reports no additional complaints Physical exam (Primary Care) Vital Signs: Last Vital Signs Pulse 58 09/25/24 10:01 BP 116/78 09/25/24 10:01 Pulse Ox 96 09/25/24 10:01 Oxygen Delivery Method Room Air 09/25/24 10:01 BMI result Body Mass Index 44.8 Tobacco/Smoking Status: Tobacco use Status Tobacco use date assessed 09/25/24 09/25/24 10:05 Patient Tobacco Use Status Former Tobacco user 09/25/24 10:01 e-Cigarette/Vaping Use Never Used 09/25/24 10:01 PHQ-9: PHQ-9 Score PHQ-9: Total score 1 09/25/24 11:03 Depression Screening Interpretation: Negative Thrive Assessment: Date of Thrive Assessment Date Thrive assessed 09/25/24 09/25/24 10:05 Currently or been in a relationship where the following occur: No concerns reported Advance Care Planning discussion: Completed/Scanned Date of discussion: 09/25/24 Who was present: Forms completed: MOLST Time spent: 16-45 minutes Actual minutes spent: 16 Const General: cooperative, comfortable and no acute distress Orientation/consciousness: patient oriented x3 HENMT Head: Yes normocephalic Eyes General: appearance normal, both eyes and all related structures Neck Neck: Yes supple Resp Effort & Inspection: normal respiratory effort, no cough and no stridor Cardio Heart sounds: S1 normal heart sound present and S2 normal heart sound present Skin General skin exam: turgor normal Neuro General: patient oriented x3, tone normal and moves all extremities Extrem Right lower extremity: no edema Left lower extremity: no edema Results AMB Hemoglobin A1c AMB Hemoglobin A1c 8.2 % Last Edit by MAK Flores on 09/25/24 10:51 Results Reviewed Results Reviewed: Laboratory Last Values Hgb A1c (Clinic) 8.2 % (4.0-6.0) H 09/25/24 10:49 Coding Level of Care Code Est Pt Level 5 (53141) Diagnoses Other specified hypothyroidism E03.8 Non-insulin dependent type 2 diabetes mellitus E11.9 Hospital discharge follow-up Z09 Permanent atrial fibrillation I48.21 Malignant neoplasm of urinary bladder, unspecified site C67.9 Bladder location: unspecified site Acute on chronic diastolic CHF (congestive heart failure) I50.33 Leg weakness, bilateral R29.898 Bipolar 1 disorder F31.9 PTSD (post-traumatic stress disorder) F43.10 Primary hypertension I10 Hypertension type: primary hypertension Additional Codes ZAID-7 Assessment Billing - ZAID-7 Assessment Tool: ZAID-7 Assessment 10613 ([id number]) PHQ-9 - 59657 - PHQ-9 Billing: Yes ([id number]) Vital Signs *Quality* - Advance Care Planning discussion: Completed/Scanned ([id number]) Vital Signs *Quality* - Time spent: 16-45 minutes ([id number]) Assessment & Plan Assessment & Plan (1) Other specified hypothyroidism: Code(s): E03.8 - Other specified hypothyroidism Category: Medical (2) Non-insulin dependent type 2 diabetes mellitus: Code(s): E11.9 - Type 2 diabetes mellitus without complications Category: Medical (3) Hospital discharge follow-up: Code(s): Z09 - Encounter for follow-up examination after completed treatment for conditions other than malignant neoplasm Category: Medical (4) Permanent atrial fibrillation: Code(s): I48.21 - Permanent atrial fibrillation Category: Medical (5) Bladder cancer: Code(s): C67.9 - Malignant neoplasm of bladder, unspecified Category: Medical Qualifiers: Bladder location: unspecified site Qualified Code(s): C67.9 - Malignant neoplasm of bladder, unspecified (6) Acute on chronic diastolic CHF (congestive heart failure): Code(s): I50.33 - Acute on chronic diastolic (congestive) heart failure Category: Medical (7) Leg weakness, bilateral: Code(s): R29.898 - Other symptoms and signs involving the musculoskeletal system Category: Medical (8) Bipolar 1 disorder: Code(s): F31.9 - Bipolar disorder, unspecified Category: Medical (9) PTSD (post-traumatic stress disorder): Code(s): F43.10 - Post-traumatic stress disorder, unspecified Category: Medical (10) HTN (hypertension): Comment: As above Code(s): I10 - Essential (primary) hypertension Category: Medical Qualifiers: Hypertension type: primary hypertension Qualified Code(s): I10 - Essential (primary) hypertension Plan Chief Complaint 69 year old female presents for hospital discharge follow-up, and management of atrial fibrillation with rapid ventricular response and diabetes. Assessment and Plan 69 year old female with a history of atrial fibrillation and chronic diastolic heart failure, diabetes, newly diagnosed bladder cancer, Presented to [facility] September 09 due to shortness a breath Patient was found to be in rapid ventricular response The patient's atrial fibrillation shows a ventricular rate of 130 bpm, with an EKG revealing atrial fibrillation and left bundle branch block, but no acute ST-T changes. The patient also has moderate left ventricular dysfunction with an ejection fraction of 35%. Anemia persists with a hemoglobin of 10.7, likely secondary to her chronic condition. Diabetes control is suboptimal with a hemoglobin A1c of 8.2 today, necessitating reevaluation of current treatment regimens. The patient also disclosed ongoing bladder cancer issues, with a PET scan scheduled and collaborative care being coordinated with cardiology and oncology. Cardiology note from September 13 reviewed Which recommend to avoid using Jardiance 1. Chronic Anemia - Continue iron supplementation. Monitor hemoglobin levels regularly. Consider possible anemia workup by hematology if condition persists. 2. Bladder Cancer - Upcoming PET scan and oncology consultation planned. Coordination between oncology and cardiology regarding any potential medication interactions affecting cardiac health. 3. Left Ventricular Dysfunction - On-going cardiac monitoring for worsening of symptoms or changes in ejection fraction. Coordination of care between cardiologists. 4. Insomnia With Depressive Episodes - Continue current regimen with quetiapine as patient was having manic episodes prescribed by psychiatric nurse. Continue psychiatric supervision to monitor efficacy and adjust medication as needed. 5. Atrial Fibrillation With Rapid Ventricular Response - Continue metoprolol at the current dose for rate control. Discontinue Cardizem. Regular cardiology evaluation recommended for management, including Dr. Bravo. Monitor ventricular response rate closely. 6. Hypothyroidism - Resume levothyroxine 150 mcg daily. Plan for thyroid function tests in approximately six weeks after medication stabilization. 7. Congestive Heart Failure Diastolic - Maintain current Lasix dosage for fluid management. Monitor heart failure symptoms. Follow-up with senior sales operations manager for potential adjustment of heart failure management strategy. 8. Type 2 Diabetes Mellitus - Discontinue Jardiance per senior sales operations manager's recommendation. Initiate new antihyperglycemic agent suitable for patient's cardiac status. Monitor blood glucose levels daily and track hemoglobin A1c Glipizide 2.5 mg started once a day, we will set up a telemedicine visit in 2 weeks for follow-up on that. Problem List - Atrial Fibrillation with Rapid Ventricular Response - Congestive Heart Failure (Diastolic) - Chronic Anemia - Type 2 Diabetes Mellitus - Hypothyroidism - Left Ventricular Dysfunction - Left Bundle Branch Block - Bladder Cancer - Insomnia with Depressive Episodes Patient Instructions - Maintain current medication regimen as discussed, including metoprolol, Lasix, and iron supplements. - Start new antihyperglycemic agent; instructions provided for blood sugar monitoring. - Resume levothyroxine 150 mcg daily, and expect lab work in six weeks. - Continue monitoring symptoms of heart failure and report worsening symptoms. - Remain in contact with cardiology and oncology for follow-up appointments. - Monitor mental health and continue psychiatric medications. - Appointments are planned for ongoing care regarding bladder cancer. - Symptom or condition changes should be reported promptly. - Attendance at all scheduled follow-ups, especially for PET scan, is vital. 45 minutes spent in care of this patient Orders: Orders TSH reflex Free T4 Today E03.8 - Other specified hypothyroidism AMB Hemoglobin A1c Today Z13.9 - Encounter for screening, unspecified Medications: New levothyroxine 150 mcg PO DAILY@0600 90 tabs 0RF for disorder of thyroid gland glipizide 2.5 mg PO DAILY 30 tabs 0RF
== END 2024-09-25 14:31 | disposition home or self-care (01) ==
PROVIDERS: PCP Internal Medicine; Visit Provider Internal Medicine
DX: E11.9 Type 2 diabetes mellitus without complications (principal); I48.21 Permanent atrial fibrillation; C67.9 Malignant neoplasm of bladder, unspecified; I50.33 Acute on chronic diastolic (congestive) heart failure; F31.9 Bipolar disorder, unspecified; E03.8 Other specified hypothyroidism; Z09 Encounter for follow-up examination after completed treatment for conditions other than malignant neoplasm; R29.898 Other symptoms and signs involving the musculoskeletal system; F43.10 Post-traumatic stress disorder, unspecified; I10 Essential (primary) hypertension; Z00.00 Encounter for general adult medical examination without abnormal findings

== ENCOUNTER → 2024-09-25 09:59 | Outpatient (BNVA) | payer MEDICARE, BC, SELFPAY | PROVIDERS: PCP Internal Medicine; Visit Provider Internal Medicine | DX: E03.8 Other specified hypothyroidism (principal); E11.9 Type 2 diabetes mellitus without complications; I48.21 Permanent atrial fibrillation; C67.9 Malignant neoplasm of bladder, unspecified; I11.0 Hypertensive heart disease with heart failure; I50.33 Acute on chronic diastolic (congestive) heart failure; R29.898 Other symptoms and signs involving the musculoskeletal system; F31.9 Bipolar disorder, unspecified; F43.10 Post-traumatic stress disorder, unspecified; Z79.899 Other long term (current) drug therapy | CPT/HCPCS: 83036; 96127; 99212; 99497 ==

== ENCOUNTER 2024-10-02 09:13 | Outpatient (REF) | payer MEDICARE, BC, SELFPAY ==
--- NOTE | ~2024-10-02 | PE_ITS ---
EXAMINATION: Fluorine-18 FDG PET/CT Scan CLINICAL INDICATION: Initial treatment management. Bilateral cancer, staging PROCEDURE: 64 minutes following the intravenous administration of 20.9 mCi of fluorine 18 FDG, images from the base of the skull to the mid thighs were obtained using a combined PET/CT scanner with CT scan based attenuation correction. No oral contrast was administered. No intravenous contrast was administered. Transverse, coronal, sagittal, and volume reconstruction projections were obtained. The patient's blood glucose as determined by a finger stick, was 185 mg/dl immediately prior to injection. Total CT exam dose-length product 1279.42 mGy-cm * These CT images were obtained using dose optimization techniques as appropriate, variously including the following: Automated exposure control * Adjustment of mA and/or kV according to patient size (this includes techniques or standardized protocols for targeted exams where dose is matched to indication/reason for exam; i.e. extremities or head) * Use of iterative reconstruction technique COMPARISON: No previous PET CT scan is available for comparison. The diagnostic CT scan of the abdomen and pelvis, dated 09/29/2023, is available for comparison. FINDINGS: NECK AND VISUALIZED HEAD: No foci of abnormal FDG activity are noted. The distribution of FDG activity is physiological. There is no cervical lymphadenopathy. THORAX: There are no foci of abnormal FDG activity in the chest. There is a small focus of scarring or atelectasis anterolaterally in the inferior lingular segment with no associated abnormal FDG activity. No suspicious pulmonary nodules are visualized. There is no pleural or pericardial fluid, or pneumothorax. There is no mediastinal, supraclavicular, or axillary lymphadenopathy. ABDOMEN AND PELVIS: There are no foci of abnormal FDG activity in the abdomen or pelvis. There is mild FDG activity throughout the gastrointestinal tract without a suspicious focal component. There is diverticulosis without evidence of diverticulitis. The hollow viscera are otherwise unremarkable. The liver and spleen are unremarkable. The gallbladder has been resected and there are metallic surgical clips in the gallbladder bed. The kidneys, adrenal glands and pancreas are unremarkable. An enhancing nodular focus in the posterolateral aspect of the urinary bladder wall visualized on the 09/29/[address] scan is not apparent on the current study, performed without intravenous contrast. The bladder now appears unremarkable. The remainder the pelvic organs are also unremarkable. There is no retroperitoneal, mesenteric, pelvic or inguinal lymphadenopathy. MUSCULOSKELETAL: There are no foci of abnormal FDG activity in the osseous structures. There is a mild thoracolumbar scoliosis with lumbar convexity to the left. There are degenerative changes in the spine, but no suspicious sclerotic or lytic lesions are visualized. VASCULAR: Diffuse vascular calcifications including coronary are noted. Reference SUVmax Levels: Mediastinal Blood Pool: 2.5, Slice 75/267 Liver: 5.9, Slice 113/267 PET/PET CT fusion skull to thigh IMPRESSION: 1. No abnormalities suspicious for metastatic or other malignant lesions are noted. 2. An enhancing nodular opacity in the right posterolateral bladder wall visualized on the 09/29/[address] scan is not visualized on these nondiagnostic CT images. 3. Vascular calcifications including coronary. Electronically signed by: Uche Lomas MD 10/03/2024 03:36 PM [facility]
== END 2024-10-02 09:14 | disposition home or self-care (01) ==
LOC: HO.PET 09:13
PROVIDERS: PCP Internal Medicine; Visit Provider Urology
DX: Z13.89 Encounter for screening for other disorder (principal)

== ENCOUNTER 2024-10-11 08:22 | Outpatient (AMB) | payer MEDICARE, BC, SELFPAY ==
--- NOTE | 2024-10-11 08:32 | A.OFFPC_ITS ---
Intake Visit Reasons: Discuss Sugar Report Allergies aspirin [ASA] Allergy (Intermediate, Verified 10/11/24 08:33) GI PAIN, upset stomach hazelnut Allergy (Unknown, Verified 10/11/24 08:33) Unknown shellfish derived Allergy (Unknown, Verified 10/11/24 08:33) Unknown divalproex sodium [From Depakote] Allergy (Verified 10/11/24 08:33) diarrhea, brain fog gluten Allergy (Verified 10/11/24 08:33) Unknown sesame seeds Allergy (Unknown, Uncoded 09/17/24 10:01) Unknown Medication List - Last Reconciled 10/11/24 by Adithya Gutierrez MD acetaminophen 1,000 mg PO DAILY PRN amiodarone 400 mg (2 x 200 mg) PO BID cholecalciferol (vitamin D3) 25 mcg PO DAILY 90 days ferrous sulfate 325 mg PO BIDWM furosemide 40 mg See Protocol PO DAILY glipizide 2.5 mg PO DAILY levothyroxine 150 mcg PO DAILY@0600 metoprolol succinate ER 75 mg PO BID nystatin 1 appl topical DAILY 30 days quetiapine ER 150 mg PO BEDTIME rivaroxaban (Xarelto) 20 mg PO DAILY@1700 sacubitril-valsartan 24-26 mg (Entresto) 1 tab See Protocol PO BID spironolactone 25 mg See Protocol PO DAILY trazodone 225 mg PO BEDTIME Tobacco use date assessed: 10/11/24 Fall risk assessment: No Falls in past year Last assessed Fall Risk: 10/11/24 Dental Screening Dental Screen Date: 10/11/24 Did you have a dental visit in the last 12 months?: Yes Did you have a dental problem in the last 6 months where you did not have access to dental care?: No Was dental information given to patient?: Patient has dentist HPI Discuss Sugar Report HPI Details Chief Complaint Patient presents for follow-up on diabetes management. Assessment and Plan 69-year-old female with a history of lima betes mellitus presenting for follow-up visit to discuss diabetes management and review PET scan results. The patient's blood glucose levels have shown variability but are generally elevated. Current medication includes Glipizide 2.5 mg daily. The patient reports fatigue but no significant symptoms of hypoglycemia. Recent PET scan results were negative for malignancy, indicating no presence of cancer. Based on the conversation, the patient's diabetes management requires monitoring and possibly some adjustments to improve blood glucose control. 1. Diabetes Mellitus - The patient reports daily monitoring o f blood glucose. Recent readings include 114 mg/dL, 151 mg/dL, 162 mg/dL, 152 mg/dL, and 144 mg/dL. Current treatment includes Glipizide 2.5 mg with planned continuation. Scheduled follow-up for lab tests is set for three months to evaluate the efficacy of current medical management. Diagnostic results - PET Scan: Negative for malignancy Problem List - Diabetes Mellitus - Fatigue - History of PET Scan (negative for nik gnancy) Health Maintenance - Continuation of current diabetes manag ement with Glipizide - Scheduled lab work in three months to monitor diabetes control - Reassurance provided regarding negativ e PET scan results Patient Instructions - Continue monitoring blood glucose leve ls daily. - Maintain the current dose of Glipizide as prescribed. - Be aware of signs and symptoms of hypo glycemia and consume food if symptoms are experienced. - Plan to return for laboratory testing in three months. - Continue regular follow-up to monitor diabetes and maintain health. - Celebrate the negative PET scan result as favorable news. [facility] Medical History Non-insulin dependent type 2 diabetes mellitus Atrial flutter Bladder cancer Acute blood loss anemia Recurrent UTI Bilateral dacryocystitis Fall Frequency of urination Gait instability UTI (urinary tract infection) Pre-syncope Irritable bowel syndrome with diarrhea Chronic atrial fibrillation Paroxysmal atrial fibrillation C. difficile colitis Morbid obesity due to excess calories Weakness Leg edema Bipolar 1 disorder Vertigo PTSD (post-traumatic stress disorder) History of cardioversion Arthritis Hypothyroidism History of wheezing Diabetes mellitus HTN (hypertension) LBBB (left bundle branch block) PAF (paroxysmal atrial fibrillation) Surgical History History of cardiac radiofrequency ablation History of eye surgery Hx of section Hx of colonoscopy Hx of cholecystectomy Hx of arthroscopy of right knee Family History Father No problems noted. Mother No problems noted. Other Mental health disorder Substance use disorder Social History Household Members: Spouse Household Members Other:: daughter + Housing: Condominium Do you presently have visiting nurse or other home services: Yes Alcohol intake: former Comment: feels safe and has a lift at home Patient Tobacco Use Status: Former Tobacco user e-Cigarette/Vaping Use: Never Used Second Hand Smoke Exposure: No Advance Directives Date on File: 06/29/23 service: No Current occupational status: employed Sexual orientation: Straight/Heterosexual Cognitive needs: No Hearing needs: No Vision needs: Yes Questionnaire Thrive Questionnaire Date Thrive assessed: 10/11/24 I am a: Parent/Caregiver What is your living situation today?: I have a steady place to live Within the past 12 months, did the food you bought not last and you didn't have the money to get more?: Never true Within the past 12 months, did you worry whether your food would run out before you got money to buy more?: Never true Do you have trouble paying for medicines?: No Do you have trouble getting transportation to medical appointments?: No Do you have trouble paying your heating and electricity bill?: No Do you have trouble taking care of your child, family member or friend?: No Do you have trouble with day-to-day activities such as bathing, preparing meals, shopping, managing finances, etc.?: No Are you currently unemployed and looking for a job?: No Are you interested in more education?: No Please select the resources that you would like help with: None Currently or been in a relationship where the following occur: No concerns reported THRIVE Score: 0 AUDIT C Alcohol Use Questionnaire (AUDIT-C) 1. How often do you have a drink containing alcohol?: Never 3. How often do you have six or more drinks on one occasion?: Never Total Score: 0 Score Reviewed/Action Taken: Yes ZAID-7 AMB Questionnaire ZAID-7 Date ZAID - 7 assessed: 09/25/24 Source: Developed by Drs. Galo Triplett, Lavern Israel, Darion Jarvis and colleagues, with an educational lisette from [employer]. Review of Systems Const Denies chills and Denies fever(s) ENT Denies epistaxis and Denies nasal discharge Card Denies chest pain Resp Denies chest congestion, Denies cough and Denies hemoptysis GI Denies diarrhea and Denies nausea Skin/Breast Denies rash Neuro Reports no additional complaints Psych Reports no additional complaints Endo Reports no additional complaints Physical exam (Primary Care) Tobacco/Smoking Status: Tobacco use Status Tobacco use date assessed 10/11/24 10/11/24 08:36 Patient Tobacco Use Status Former Tobacco user 10/11/24 08:36 e-Cigarette/Vaping Use Never Used 10/11/24 08:36 Thrive Assessment: Date of Thrive Assessment Date Thrive assessed 10/11/24 10/11/24 08:36 Currently or been in a relationship where the following occur: No concerns reported Telehealth Telehealth Telehealth Platform: [employer] Location of provider rendering services: practice address Location of patient: address on file Patient Identification confirmed using: Name, : Yes Telehealth method: video (attempted) Patient verbally consented to treatment: Yes Patient verbally consented to billing insurance company: Yes Patient informed of any privacy concerns related to visit: Yes Minutes spent on Phone/Video with Pt.: 16 Coding Level of Care Code Tele Est Pt Level 3 (77838) Complex EM visit Add On G2211 Diagnoses Non-insulin dependent type 2 diabetes mellitus E11.9 Primary hypertension I10 Hypertension type: primary hypertension Other specified hypothyroidism E03.8 Diastolic dysfunction with chronic heart failure I50.32 Chronic atrial fibrillation I48.20 Assessment & Plan Assessment & Plan (1) Non-insulin dependent type 2 diabetes mellitus: Code(s): E11.9 - Type 2 diabetes mellitus without complications Category: Medical (2) HTN (hypertension): Comment: As above Code(s): I10 - Essential (primary) hypertension Category: Medical Qualifiers: Hypertension type: primary hypertension Qualified Code(s): I10 - Essential (primary) hypertension (3) Other specified hypothyroidism: Code(s): E03.8 - Other specified hypothyroidism Category: Medical (4) Diastolic dysfunction with chronic heart failure: Code(s): I50.32 - Chronic diastolic (congestive) heart failure Category: Medical (5) Chronic atrial fibrillation: Code(s): I48.20 - Chronic atrial fibrillation, unspecified Category: Medical Plan Chief Complaint Patient presents for follow-up on diabetes management. Assessment and Plan 69-year-old female with a history of diabetes mellitus presenting for follow-up visit to discuss diabetes management and review PET scan results. The patient's blood glucose levels have shown variability but are generally elevated. Current medication includes Glipizide 2.5 mg daily. The patient reports fatigue but no significant symptoms of hypoglycemia. Recent PET scan results were negative for malignancy, indicating no presence of cancer. Based on the conversation, the patient's diabetes management requires monitoring and possibly some adjustments to improve blood glucose control. 1. Diabetes Mellitus - The patient reports daily monitoring of blood glucose. Recent readings include 114 mg/dL, 151 mg/dL, 162 mg/dL, 152 mg/dL, and 144 mg/dL. Current treatment includes Glipizide 2.5 mg with planned continuation. Scheduled follow-up for lab tests is set for three months to evaluate the efficacy of current medical management. Diagnostic results - PET Scan: Negative for malignancy Problem List - Diabetes Mellitus - Fatigue - History of PET Scan (negative for malignancy) Health Maintenance - Continuation of current diabetes management with Glipizide - Scheduled lab work in three months to monitor diabetes control - Reassurance provided regarding negative PET scan results Patient Instructions - Continue monitoring blood glucose levels daily. - Maintain the current dose of Glipizide as prescribed. - Be aware of signs and symptoms of hypoglycemia and consume food if symptoms are experienced. - Plan to return for laboratory testing in three months. - Continue regular follow-up to monitor diabetes and maintain health. - Celebrate the negative PET scan result as favorable news. Orders: Orders Hemoglobin A1c 3 Months E03.8 - Other specified hypothyroidism, E11.9 - Type 2 diabetes mellitus without complications, I10 - Essential (primary) hypertension, I48.20 - Chronic atrial fibrillation, unspecified, I50.32 - Chronic diastolic (congestive) heart failure Complete Blood Count Auto Diff 3 Months E03.8 - Other specified hypothyroidism, E11.9 - Type 2 diabetes mellitus without complications, I10 - Essential (primary) hypertension, I48.20 - Chronic atrial fibrillation, unspecified, I50.32 - Chronic diastolic (congestive) heart failure Comprehensive Met. Panel 3 Months E03.8 - Other specified hypothyroidism, E11.9 - Type 2 diabetes mellitus without complications, I10 - Essential (primary) hypertension, I48.20 - Chronic atrial fibrillation, unspecified, I50.32 - Chronic diastolic (congestive) heart failure Microalbumin, Random (w Creat) 3 Months E03.8 - Other specified hypothyroidism, E11.9 - Type 2 diabetes mellitus without complications, I10 - Essential (primary) hypertension, I48.20 - Chronic atrial fibrillation, unspecified, I50.32 - Chronic diastolic (congestive) heart failure TSH reflex Free T4 3 Months E03.8 - Other specified hypothyroidism, E11.9 - Type 2 diabetes mellitus without complications, I10 - Essential (primary) hypertension, I48.20 - Chronic atrial fibrillation, unspecified, I50.32 - Chronic diastolic (congestive) heart failure LDL Cholesterol Direct 3 Months E03.8 - Other specified hypothyroidism, E11.9 - Type 2 diabetes mellitus without complications, I10 - Essential (primary) hypertension, I48.20 - Chronic atrial fibrillation, unspecified, I50.32 - Chronic diastolic (congestive) heart failure Medications: Refilled glipizide 2.5 mg PO DAILY 90 tabs 1RF
--- OUTSIDE RECORDS SUMMARY | 2024-10-11 08:34 | XMS_ITS | Clinical Summary ---
Author Organization Unknown Care Team Providers Care Community [employer] Manager Name Role Phone LANCE MENDOZA, CARMEN Unavailable Unavailable MEL PT, RUIZ Unavailable Unavailable GALINDO VILLEGAS, CLINICAL BUNDLER, GUADALUPE Thomas available Unavailable Payers Payer Name Policy Type Policy Number Effective Date Expira tion Date MEDICARE - [facility] - PD [id number] [facility] [id number] Problems Condition Name Condition Details Condition Category Status Onset Date Resolution Date Last Treatment Date Treating Clinician Comments OTHER PERSISTENT ATRIAL FIBRILLATION Active 2022-10 00:00: 00 ESSENTIAL (PRIMARY) HYPERTENSION Active 2022-10 00:00: 00 TYPE 2 DIABETES MELLITUS WITHOUT COMPLICATION S Active 2022-10 00:00: 00 HYPOTHYROIDI SM, UNSPECIFIED Active 2022-10 00:00: 00 Irritable bowel syndrome, unspecified Active 2022-10 00:00: 00 OTHER BIPOLAR DISORDER Active 2022-10 00:00: 00 POST-TRAUMAT IC STRESS DISORDER, CHRONIC Active 2022-10 00:00: 00 LEFT BUNDLE-BRANC H BLOCK, UNSPECIFIED Active 2022-10 00:00: 00 MORBID (SEVERE) OBESITY DUE TO EXCESS CALORIES Active 2022-10 00:00: 00 BODY MASS INDEX [BMI]40.0-44 .9, ADULT Active 2022-10 00:00: 00 UNSPECIFIED OSTEOARTHRIT IS, UNSPECIFIED SITE Active 2022-10 00:00: 00 GROUP HOME (CURRENT) USE OF ANTICOAGULAN TS Active 2022-10 00:00: 00 Problems related to health literacy Active 2022-10 00:00: 00 PERSONAL HISTORY OF NICOTINE DEPENDENCE Active 2022-10 00:00: 00 PERSONAL HISTORY OF URINARY (TRACT) INFECTIONS Active 2022-10 00:00: 00 HISTORY OF FALLING Active 2022-10 00:00: 00 CHRONIC ATRIAL FIBRILLATION , UNSPECIFIED Active 2022-10 00:00: 00 Allergies, Adverse Reactions, Alerts Allergy Name Allergy Type Status Severity Reaction(s) Onset Date Inactive Date Treating Clinician Comments SHRIMP/SH ELL FISH Propensity to adverse reactions Active 2023-09 14:42:0 6 GLUTEN Propensity to adverse reactions Active 2023-09 14:42:2 0 Medications Ordered Medication Name Filled Medication Name Start Date Stop Date Current Medication? Ordering Clinician Indication Dosage Frequency Signature (SIG) Comments Components Viberzi 75 mg tablet 07-29 00:00: 00 07-05 23:59 :00 No [id number] Per instruc tions TWICE DAILY Per instructio ns TWICE DAILY (route: oral) Med Classific ation: Gastroint estinal Therapy Agents trazodone 150 mg tablet 07-26 00:00: 00 07-05 23:59 :00 No [id number] 1 tablet BEDTIME 1 tablet BEDTIME (route: oral) Med Classific ation: Central Nervous System Agents divalproex 500 mg tablet,shahana yed release 07-22 00:00: 00 10-16 23:59 :00 No [id number] 1 tablet 2 TIMES DAILY 1 tablet 2 TIMES DAILY (route: oral) Med Classific ation: Central Nervous System Agents metoprolol succinate ER 50 mg tablet,exte nded release 24 hr 07-21 00:00: 00 07-05 23:59 :00 No [id number] 1 tablet 2 TIMES DAILY 1 tablet 2 TIMES DAILY (route: oral) Med Classific ation: Cardiovas cular Therapy Agents amiodarone 100 mg tablet 07-16 00:00: 00 09-07 23:59 :00 No [id number] 1 tablet DAILY 1 tablet DAILY (route: oral) Med Classific ation: Cardiovas cular Therapy Agents furosemide 20 mg tablet 07-16 00:00: 00 09-07 23:59 :00 No [id number] 1 tablet DAILY 1 tablet DAILY (route: oral) Med Classific ation: Cardiovas cular Therapy Agents levothyroxi ne 150 mcg tablet 07-16 00:00: 00 07-05 23:59 :00 No [id number] 1 tablet DAILY 1 tablet DAILY (route: oral) Med Classific ation: Endocrine Xarelto 20 mg tablet 07-07 00:00: 00 07-05 23:59 :00 No [id number] 1 tablet DAILY 1 tablet DAILY (route: oral) Med Classific ation: Hematolog ical Agents divalproex 250 mg tablet,shahana yed release 2022-10 0 00:00: 00 10-16 23:59 :00 No [id number] 1 tablet BEDTIME 1 tablet BEDTIME (route: oral) Med Classific ation: Central Nervous System Agents Vancocin 125 mg capsule 2022-10 00:00: 00 09-23 23:59 :00 No [id number] 125 mg 4 TIMES DAILY 125 mg 4 TIMES DAILY (route: oral) Med Classific ation: Anti-Infe ctive Agents Immunizations Ordered Immunization Name Filled Immunization Name Date Status Comments Refusal Reason REFUSED FLU, PPV 2023-10-16 00:00:00 Vital Signs Vital Name Observation Time Observation Value Commen ts Temperature 2023-11-14 13:58:00.000 96.8 [degF] Temperature 2023-11-11 12:15:00.000 96.7 [degF] Temperature 2023-11-07 18:15:00.000 98.6 [degF] Temperature 2023-11-05 13:04:00.000 97.6 [degF] Temperature 2023-11-04 22:09:00.000 98.3 [degF] Temperature 2023-11-02 12:12:00.000 97.3 [degF] Temperature 2023-11-02 11:10:00.000 96.9 [degF] Temperature 2023-10-28 15:09:00.000 97.1 [degF] Temperature 2023-10-27 12:04:00.000 96.6 [degF] Temperature 2023-10-25 13:11:00.000 96.9 [degF] Temperature 2023-10-25 12:06:00.000 96.6 [degF] Temperature 2023-10-20 11:19:00.000 97.5 [degF] Temperature 2023-10-19 12:44:00.000 98.6 [degF] Temperature 2023-10-16 14:41:00.000 98 [degF] BMI (%) 2023-10-16 14:41:00.000 41 kg/m2 Height 2023-10-16 14:41:00.000 63 [in_us] Pulse 2023-11-14 13:58:00.000 98 /min Pulse 2023-11-11 12:15:00.000 90 /min Pulse 2023-11-07 18:15:00.000 90 /min Pulse 2023-11-05 13:04:00.000 68 /min Pulse 2023-11-04 22:09:00.000 90 /min Pulse 2023-11-02 12:12:00.000 60 /min Pulse 2023-11-02 11:10:00.000 91 /min Pulse 2023-10-28 15:09:00.000 67 /min Pulse 2023-10-27 12:04:00.000 86 /min Pulse 2023-10-25 13:11:00.000 100 /min Pulse 2023-10-25 12:06:00.000 90 /min Pulse 2023-10-20 11:19:00.000 76 /min Pulse 2023-10-19 12:44:00.000 90 /min Pulse 2023-10-16 14:41:00.000 96 /min O2 Saturation (%) 2023-11-14 13:58:00.000 97 % O2 Saturation (%) 2023-11-11 12:15:00.000 95 % O2 Saturation (%) 2023-11-05 13:04:00.000 98 % O2 Saturation (%) 2023-11-02 12:12:00.000 96 % O2 Saturation (%) 2023-11-02 11:10:00.000 97 % O2 Saturation (%) 2023-10-28 15:09:00.000 94 % O2 Saturation (%) 2023-10-27 12:04:00.000 98 % O2 Saturation (%) 2023-10-25 13:11:00.000 98 % O2 Saturation (%) 2023-10-25 12:06:00.000 98 % O2 Saturation (%) 2023-10-20 11:19:00.000 96 % O2 Saturation (%) 2023-10-19 12:44:00.000 98 % Respirations 2023-11-14 13:58:00.000 16 /min Respirations 2023-11-11 12:15:00.000 18 /min Respirations 2023-11-07 18:15:00.000 18 /min Respirations 2023-11-05 13:04:00.000 16 /min Respirations 2023-11-04 22:09:00.000 18 /min Respirations 2023-11-02 12:12:00.000 16 /min Respirations 2023-11-02 11:10:00.000 15 /min Respirations 2023-10-28 15:09:00.000 16 /min Respirations 2023-10-27 12:04:00.000 18 /min Respirations 2023-10-25 13:11:00.000 15 /min Respirations 2023-10-25 12:06:00.000 18 /min Respirations 2023-10-20 11:19:00.000 15 /min Respirations 2023-10-19 12:44:00.000 18 /min Respirations 2023-10-16 14:41:00.000 18 /min Weight (lbs) 2023-10-16 14:41:00.000 235 [lb_av] Systolic Blood Pressure 2023-11-14 13:58:00.000 108 mm [Hg] Systolic Blood Pressure 2023-11-11 12:15:00.000 114 mm [Hg] Systolic Blood Pressure 2023-11-07 18:15:00.000 122 mm [Hg] Systolic Blood Pressure 2023-11-05 13:04:00.000 122 mm [Hg] Systolic Blood Pressure 2023-11-04 22:09:00.000 130 mm [Hg] Systolic Blood Pressure 2023-11-02 12:12:00.000 114 mm [Hg] Systolic Blood Pressure 2023-11-02 11:10:00.000 120 mm [Hg] Systolic Blood Pressure 2023-10-28 15:09:00.000 122 mm [Hg] Systolic Blood Pressure 2023-10-27 12:04:00.000 118 mm [Hg] Systolic Blood Pressure 2023-10-25 13:11:00.000 118 mm [Hg] Systolic Blood Pressure 2023-10-25 12:06:00.000 124 mm [Hg] Systolic Blood Pressure 2023-10-20 11:19:00.000 142 mm [Hg] Systolic Blood Pressure 2023-10-19 12:44:00.000 110 mm [Hg] Systolic Blood Pressure 2023-10-16 14:41:00.000 106 mm [Hg] Diastolic Blood Pressure 2023-11-14 13:58:00.000 78 mm [Hg] Diastolic Blood Pressure 2023-11-11 12:15:00.000 72 mm [Hg] Diastolic Blood Pressure 2023-11-07 18:15:00.000 74 mm [Hg] Diastolic Blood Pressure 2023-11-05 13:04:00.000 74 mm [Hg] Diastolic Blood Pressure 2023-11-04 22:09:00.000 74 mm [Hg] Diastolic Blood Pressure 2023-11-02 12:12:00.000 72 mm [Hg] Diastolic Blood Pressure 2023-11-02 11:10:00.000 74 mm [Hg] Diastolic Blood Pressure 2023-10-28 15:09:00.000 72 mm [Hg] Diastolic Blood Pressure 2023-10-27 12:04:00.000 74 mm [Hg] Diastolic Blood Pressure 2023-10-25 13:11:00.000 74 mm [Hg] Diastolic Blood Pressure 2023-10-25 12:06:00.000 78 mm [Hg] Diastolic Blood Pressure 2023-10-20 11:19:00.000 84 mm [Hg] Diastolic Blood Pressure 2023-10-19 12:44:00.000 68 mm [Hg] Diastolic Blood Pressure 2023-10-16 14:41:00.000 70 mm [Hg] Plan of Treatment Planned Activity Planned Date Details Comments Future Scheduled Test SKILLED NU RSE TO EVALUATE PATIENT, IDENTIFY PRIMARY AND CO-MORBID CONDITIONS CODED PER CODING GUIDELINES, AND DEVELOP PATIENT SPECIFIC PLAN OF CARE THAT INCLUDES PATIENT GOAL FOR HOME HEALTH. [code = SKILLED NURSE TO EVALUATE PATIENT, IDENTIFY PRIMARY AND CO-MORBID CONDITIONS CODED PER CODING GUIDELINES, AND DEVELOP PATIENT SPECIFIC PLAN OF CARE THAT INCLUDES PATIENT GOAL FOR HOME HEALTH.] Future Scheduled Test SKILLED NU RSE TO PROVIDE TEACHING/REINFORCEMENT RELATED TO URINARY INCONTINENCE. [code = SKILLED NURSE TO PROVIDE TEACHING/REINFORCEMENT RELATED TO URINARY INCONTINENCE.] Future Scheduled Test SKILLED NU RSE TO REVIEW PATIENT MEDICATIONS. INSTRUCT PATIENT/CAREGIVER ON MONITORING OF EFFECTIVENESS, ADVERSE DRUG REACTIONS, SIDE EFFECTS OF ALL MEDICATIONS (PRESCRIPTION/-OTC), AND HOW AND WHEN TO REPORT PROBLEMS. [code = SKILLED NURSE TO REVIEW PATIENT MEDICATIONS. INSTRUCT PATIENT/CAREGIVER ON MONITORING OF EFFECTIVENESS, ADVERSE DRUG REACTIONS, SIDE EFFECTS OF ALL MEDICATIONS (PRESCRIPTION/-OTC), AND HOW AND WHEN TO REPORT PROBLEMS.] Future Scheduled Test SKILLED NU RSE FOR O/A OF ALTERED MOOD [code = SKILLED NURSE FOR O/A OF ALTERED MOOD ] Future Scheduled Test SKILLED NU RSE TO ASSESS ANXIETY AND PROVIDE ASSISTANCE TO PATIENT FOR UNDERSTANDING AND MANAGEMENT OF FEELINGS. [code = SKILLED NURSE TO ASSESS ANXIETY AND PROVIDE ASSISTANCE TO PATIENT FOR UNDERSTANDING AND MANAGEMENT OF FEELINGS.] Future Scheduled Test SKILLED NU RSE MAY COLLECT URINE SAMPLE FOR URINE REAGENT STRIP TESTING AND/OR URINALYSIS WITH CS 1-3 PRN IF INDICATED FOR SIGNS AND SYMPTOMS OF UTI. IF REAGENT STRIP TEST IS POSITIVE FOR UTI, SKILLED NURSE TO TAKE URINE SAMPLE TO LAB FOR URINE CS AND REPORT RESULTS TO PHYSICIAN. [code = SKILLED NURSE MAY COLLECT URINE SAMPLE FOR URINE REAGENT STRIP TESTING AND/OR URINALYSIS WITH CS 1-3 PRN IF INDICATED FOR SIGNS AND SYMPTOMS OF UTI. IF REAGENT STRIP TEST IS POSITIVE FOR UTI, SKILLED NURSE TO TAKE URINE SAMPLE TO LAB FOR URINE CS AND REPORT RESULTS TO PHYSICIAN.] Future Scheduled Test SKILLED NU RSE FOR O/A, TEACHING RELATED TO IBS, DIARRHEA FOR EARLY IDENTIFICATION OF EXACERBATION OF DISEASE PROCESS. [code = SKILLED NURSE FOR O/A, TEACHING RELATED TO IBS, DIARRHEA FOR EARLY IDENTIFICATION OF EXACERBATION OF DISEASE PROCESS.] Future Scheduled Test SKILLED NU RSE FOR O/A, TEACHING AND MANAGEMENT OF UTI FOR EARLY IDENTIFICATION OF EXACERBATION OF DISEASE PROCESS [code = SKILLED NURSE FOR O/A, TEACHING AND MANAGEMENT OF UTI FOR EARLY IDENTIFICATION OF EXACERBATION OF DISEASE PROCESS] Future Scheduled Test SKILLED NU RSE FOR O/A AND SKILLED TEACHING RELATED TO SIGNS AND SYMPTOMS OF INFECTION AND INFECTION CONTROL MEASURES. [code = SKILLED NURSE FOR O/A AND SKILLED TEACHING RELATED TO SIGNS AND SYMPTOMS OF INFECTION AND INFECTION CONTROL MEASURES.] Future Scheduled Test SKILLED NU RSE TO INSTRUCT/REINFORCE MEASURES TO PREVENT BARRIERS TO CARE. [code = SKILLED NURSE TO INSTRUCT/REINFORCE MEASURES TO PREVENT BARRIERS TO CARE.] Future Scheduled Test SKILLED NU RSE FOR O/A AND TEACHING OF ENDOCRINE SYSTEM TO IDENTIFY CHANGES ASSOCIATED WITH EXACERBATION OF HYPOTHYROIDISM FOR EARLY INTERVENTION OF COMPLICATIONS. [code = SKILLED NURSE FOR O/A AND TEACHING OF ENDOCRINE SYSTEM TO IDENTIFY CHANGES ASSOCIATED WITH EXACERBATION OF HYPOTHYROIDISM FOR EARLY INTERVENTION OF COMPLICATIONS.] Future Scheduled Test PHYSICAL T HERAPIST TO EVALUATE PATIENT FOR GAIT STABILITY AND STRENGTHENING [code = PHYSICAL THERAPIST TO EVALUATE PATIENT FOR GAIT STABILITY AND STRENGTHENING ] Future Scheduled Test INSTRUCTED PATIENT/CAREGIVER ON SIGNS AND SYMPTOMS, RISK FACTORS, COMPLICATIONS, AND MANAGEMENT OF ATRIAL FIBRILLATION. [code = INSTRUCTED PATIENT/CAREGIVER ON SIGNS AND SYMPTOMS, RISK FACTORS, COMPLICATIONS, AND MANAGEMENT OF ATRIAL FIBRILLATION.] Future Scheduled Test SKILLED NU RSE TO PROVIDE TEACHING ON SIGNS AND SYMPTOMS AND MANAGEMENT OF HYPERTENSION. [code = SKILLED NURSE TO PROVIDE TEACHING ON SIGNS AND SYMPTOMS AND MANAGEMENT OF HYPERTENSION.] Future Scheduled Test SKILLED NU RSE FOR O/A AND SKILLED TEACHING OF COPING SKILLS TO MANAGE ANXIETY AND MAINTAIN SAFETY. [code = SKILLED NURSE FOR O/A AND SKILLED TEACHING OF COPING SKILLS TO MANAGE ANXIETY AND MAINTAIN SAFETY.] Future Scheduled Test SKILLED NU RSE FOR O/A AND TEACHING OF DIABETIC MANAGEMENT INCLUDING BLOOD SUGAR MONITORING/USE OF GLUCOMETER, DIABETIC DIET, LOWER EXTREMITY SKIN INSPECTION, PROPER SKIN/FOOT CARE, AND SIGNS AND SYMPTOMS HYPO/HYPERGLYCEMIA TO REPORT. [code = SKILLED NURSE FOR O/A AND TEACHING OF DIABETIC MANAGEMENT INCLUDING BLOOD SUGAR MONITORING/USE OF GLUCOMETER, DIABETIC DIET, LOWER EXTREMITY SKIN INSPECTION, PROPER SKIN/FOOT CARE, AND SIGNS AND SYMPTOMS HYPO/HYPERGLYCEMIA TO REPORT.] Future Scheduled Test SKILLED NU RSE TO INSTRUCT PATIENT/CAREGIVER ON PREVENTION OF SEPSIS, AND SIGNS AND SYMPTOMS OF SEPSIS TO REPORT. [code = SKILLED NURSE TO INSTRUCT PATIENT/CAREGIVER ON PREVENTION OF SEPSIS, AND SIGNS AND SYMPTOMS OF SEPSIS TO REPORT.] Future Scheduled Test VIRTUAL SIT FREQUENCY: 1-6 PER WEEK X 3 WEEKS AND 6 PRN VIRTUAL VISITS MAY BE PERFORMED UTILIZING [employer] SYSTEM TO OPTIMIZE SKILLED SERVICES FURNISHED ON THE PLAN OF CARE. SKILLED NURSE TO ESTABLISH SUPPORT MEASURES TO MINIMIZE RISK OF REHOSPITALIZATION, AND INSTRUCT PATIENT/CAREGIVER ON METHODS TO REDUCE AVOIDABLE HOSPITALIZATION. [code = VIRTUAL VISIT FREQUENCY: 1-6 PER WEEK X 3 WEEKS AND 6 PRN VIRTUAL VISITS MAY BE PERFORMED UTILIZING [employer] SYSTEM TO OPTIMIZE SKILLED SERVICES FURNISHED ON THE PLAN OF CARE. SKILLED NURSE TO ESTABLISH SUPPORT MEASURES TO MINIMIZE RISK OF REHOSPITALIZATION, AND INSTRUCT PATIENT/CAREGIVER ON METHODS TO REDUCE AVOIDABLE HOSPITALIZATION.] Future Scheduled Test PATIENT DAMICO S A RISK OF HOSPITALIZATION AND ED USE. SKILLED NURSE TO ESTABLISH SUPPORT MEASURES TO MINIMIZE RISK OF HOSPITALIZATION AND ED USE, AND INSTRUCT PATIENT/CAREGIVER ON METHODS TO REDUCE AVOIDABLE HOSPITALIZATION AND ED USE. [code = PATIENT HAS A RISK OF HOSPITALIZATION AND ED USE. SKILLED NURSE TO ESTABLISH SUPPORT MEASURES TO MINIMIZE RISK OF HOSPITALIZATION AND ED USE, AND INSTRUCT PATIENT/CAREGIVER ON METHODS TO REDUCE AVOIDABLE HOSPITALIZATION AND ED USE.] Future Scheduled Test SKILLED NU RSE TO PROVIDE INSTRUCTION TO PATIENT/CAREGIVER RELATED TO DISCHARGE PLANNING. [code = SKILLED NURSE TO PROVIDE INSTRUCTION TO PATIENT/CAREGIVER RELATED TO DISCHARGE PLANNING.] Future Scheduled Test SKILLED NU RSE TO PERFORM HOME SAFETY AND FALL ASSESSMENT AND PROVIDE INSTRUCTION TO IMPLEMENT HOME SAFETY AND FALL PREVENTION STRATEGIES. [code = SKILLED NURSE TO PERFORM HOME SAFETY AND FALL ASSESSMENT AND PROVIDE INSTRUCTION TO IMPLEMENT HOME SAFETY AND FALL PREVENTION STRATEGIES.] Future Scheduled Test SKILLED NU RSE FOR OBSERVATION AND ASSESSMENT OF PATIENTS PAIN LEVEL AND EFFECTIVENESS OF PAIN MANAGEMENT REGIMEN. SKILLED NURSE TO INSTRUCT PATIENT/CAREGIVER REGARDING PHARMACOLOGIC AND NON-PHARMACOLOGIC PAIN CONTROL MEASURES. SKILLED NURSE TO REPORT TO PHYSICIAN IF PAIN IS UNCONTROLLED WITH CURRENT PAIN MANAGEMENT REGIMEN. [code = SKILLED NURSE FOR OBSERVATION AND ASSESSMENT OF PATIENTS PAIN LEVEL AND EFFECTIVENESS OF PAIN MANAGEMENT REGIMEN. SKILLED NURSE TO INSTRUCT PATIENT/CAREGIVER REGARDING PHARMACOLOGIC AND NON-PHARMACOLOGIC PAIN CONTROL MEASURES. SKILLED NURSE TO REPORT TO PHYSICIAN IF PAIN IS UNCONTROLLED WITH CURRENT PAIN MANAGEMENT REGIMEN.] Future Scheduled Test SKILLED NU RSE TO ASSESS PATIENT'S SKIN INTEGRITY AND INSTRUCT PATIENT/CAREGIVER ON MEASURES TO PREVENT PRESSURE ULCERS. [code = SKILLED NURSE TO ASSESS PATIENT'S SKIN INTEGRITY AND INSTRUCT PATIENT/CAREGIVER ON MEASURES TO PREVENT PRESSURE ULCERS.] Goal 2023-11-14 Patient Goal - TO FEEL WELL Goal Provider Goal - A PLAN OF CARE WILL BE ESTABLISHED THAT MEETS PATIENT'S DETENTION NEEDS AND INCLUDES PATIENT GOAL FOR HOME HEALTH. Goal Provider Goal - PATIENT / CAREGIVER WILL VERBALIZE UNDERSTANDING OF EFFECTS OF URINARY INCONTINENCE BY THE END OF THE CERTIFICATION PERIOD. Goal Provider Goal - PATIENT/CAREGIVER WILL VERBALIZE UNDERSTANDING OF EDUCATION PROVIDED ON MEDICATIONS BY THE END OF THE CERTIFICATION PERIOD. Goal Provider Goal - PATIENT WILL BE ABLE TO PERFORM DAILY FUNCTIONS AND HAVE OPTIMAL IMPROVEMENT IN MOOD STABILITY THROUGHOUT CERTIFICATION PERIOD. Goal Provider Goal - SYMPTOMS OF ANXIETY ARE IDENTIFIED AND INTERVENTIONS INITIATED TO ENABLE PATIENT TO UNDERSTAND AND MANAGE FEELINGS THROUGHOUT EPISODE. Goal Provider Goal - URINE SPECIMEN WILL BE OBTAINED PRN FOR SIGNS AND SYMPTOMS OF UTI AND RESULTS WILL BE REPORTED TO PHYSICIAN THROUGHOUT THE CERTIFICATION PERIOD. Goal Provider Goal - EXACERBATIONS OF GASTROINTESTINAL DISEASE WILL BE PROMPTLY IDENTIFIED AND INTERVENTIONS IMPLEMENTED TO MINIMIZE RISKS TO PATIENT BY END OF EPISODE. Goal Provider Goal - PATIENT/CAREGIVER WILL VERBALIZE UNDERSTANDING OF GENITOURINARY DISEASE PROCESS, AND EXACERBATIONS OF GENITOURINARY DISEASE WILL BE PROMPTLY IDENTIFIED FOR EARLY INTERVENTION THROUGHOUT THE CERTIFICATION PERIOD. Goal Provider Goal - PATIENT/CAREGIVER WILL VERBALIZE/DEMONSTRATE UNDERSTANDING OF S/S OF INFECTION AND INFECTION CONTROL MEASURES. SIGNS AND SYMPTOMS OF INFECTION WILL BE IDENTIFIED AND PHYSICIAN NOTIFIED FOR PROMPT INTERVENTION THROUGHOUT THE CERTIFICATION PERIOD. Goal Provider Goal - PATIENT / CAREGIVER WILL VERBALIZE UNDERSTANDING OF BARRIERS PREVENTING PROPER CARE AND DEMONSTRATE MEASURES TO ELIMINATE THOSE BARRIERS DURING THIS EPISODE. Goal Provider Goal - PATIENT/CAREGIVER WILL VERBALIZE SIGNS AND SYMPTOMS OF EXACERBATION OF HYPOTHYROIDISM TO REPORT TO NURSE/PHYSICIAN THROUGHOUT THE CERTIFICATION PERIOD. Goal Provider Goal - A PHYSICAL THERAPY EVALUATION TO BE COMPLETED WITH RECOMMENDATIONS AND/OR WRITTEN PLAN OF TREATMENT ESTABLISHED FOR PHYSICIANS SIGNATURE. Goal Provider Goal - PATIENT/CAREGIVER WILL VERBALIZE UNDERSTANDING OF SIGNS AND SYMPTOMS, COMPLICATIONS, AND MANAGEMENT OF ATRIAL FIBRILLATION THROUGHOUT THE CERTIFICATION PERIOD. Goal Provider Goal - PATIENT/CAREGIVER WILL VERBALIZE SIGNS AND SYMPTOMS OF HYPERTENSION AND WILL BE ABLE TO DEMONSTRATE ABILITY TO MANAGE EXACERBATION BY END OF THE EPISODE. Goal Provider Goal - PATIENT WILL BE ABLE TO PERFORM DAILY FUNCTIONS AND HAVE OPTIMAL IMPROVEMENT IN LEVEL OF ANXIETY THROUGHOUT CERTIFICATION PERIOD. Goal Provider Goal - PATIENT/CAREGIVER WILL VERBALIZE/DEMONSTRATE KNOWLEDGE OF DIABETIC MANAGEMENT. CHANGES IN DIABETIC STATUS WILL BE IDENTIFIED AND REPORTED TO PHYSICIAN FOR PROMPT INTERVENTION THROUGHOUT THE CERTIFICATION PERIOD. Goal Provider Goal - PATIENT WILL BE FREE FROM INFECTION AND PATIENT/CAREGIVER WILL VERBALIZE UNDERSTANDING OF SIGNS AND SYMPTOMS AND METHODS TO PREVENT SEPSIS BY END OF THE EPISODE. Goal Provider Goal - PATIENT/CAREGIVER WILL UTILIZE VIRTUAL VISITS TO ACHIEVE GOALS OUTLINED ON THE PLAN OF CARE. PATIENT WILL HAVE SUPPORT MEASURES ESTABLISHED TO PREVENT HOSPITALIZATION AND PATIENT/CAREGIVER WILL VERBALIZE/DEMONSTRATE METHODS TO REDUCE AVOIDABLE HOSPITALIZATION THROUGHOUT THE CERTIFICATION PERIOD. Goal Provider Goal - PATIENT WILL HAVE SUPPORT MEASURES ESTABLISHED TO PREVENT HOSPITALIZATION AND ED USE AND PATIENT/CAREGIVER WILL VERBALIZE/DEMONSTRATE METHODS TO REDUCE AVOIDABLE HOSPITALIZATION AND ED USE BY END OF EPISODE. Goal Provider Goal - PATIENT/CAREGIVER WILL VERBALIZE UNDERSTANDING OF DISCHARGE PLANNING INSTRUCTIONS BY DATE OF DISCHARGE. Goal Provider Goal - PATIENT/CAREGIVER WILL VERBALIZE/DEMONSTRATE EFFECTIVE HOME SAFETY AND FALL PREVENTION STRATEGIES THROUGHOUT CERTIFICATION PERIOD. Goal Provider Goal - PATIENT/CAREGIVER WILL DEMONSTRATE UNDERSTANDING OF PHARMACOLOGIC AND NONPHARMACOLOGIC PAIN CONTROL MEASURES AND PATIENT WILL HAVE IMPROVEMENT IN PAIN INTERFERING WITH ACTIVITY EVIDENCED BY PAIN CONTROLLED AT LEVEL OF 7 OR LESS BY END OF CERTIFICATION PERIOD. Goal Provider Goal - PATIENT/CAREGIVER WILL VERBALIZE UNDERSTANDING OF PRESSURE ULCER PREVENTION BY END OF THE EPISODE. Reason for Visit MINIMUM ASSIST WITH TRANSFER/AMBULATION/ADLS Encounters Start Date/Time End Date/Time Encounter Type Admission Type Attending [facility] Care Department Encounter ID Discharge Date Discharge Status Discharge Condition Discharge Reason Percent Goals Met 2023-10-16 00:00:00 2023-11-14 00:00:00 Outpatient [facility] [id number] 2023-11-14 00:00:00 DISCHARGE TO HOME OR SELF CARE MINIMUM ASSIST WITH TRANSFER/A MBULATION/ ADLS GOALS MET ( ONLY) 95.92
== END 2024-10-11 09:18 | disposition home or self-care (01) ==
LOC: HO.HMCC 08:22
PROVIDERS: PCP Internal Medicine; Visit Provider Internal Medicine
DX: E11.9 Type 2 diabetes mellitus without complications (principal); I50.32 Chronic diastolic (congestive) heart failure; I48.20 Chronic atrial fibrillation, unspecified; I10 Essential (primary) hypertension; E03.8 Other specified hypothyroidism

== ENCOUNTER → 2024-10-11 08:22 | Outpatient (BNVA) | payer MEDICARE, BC, SELFPAY | PROVIDERS: PCP Internal Medicine; Visit Provider Internal Medicine ==

== ENCOUNTER → 2024-10-18 08:51 | Outpatient (REF) | payer MEDICARE, BC, SELFPAY ==
--- NOTE | ~2024-10-18 | NM_ITS ---
Lexiscan Myocardial perfusion study Indication: Abnormal EKG Technique: The patient was brought in for a Lexiscan perfusion study on 10/18/2024 and was injected 0.4 mg of Lexiscan intravenously. Within a minute of this injection 40 mCi of sestamibi was given intravenously. Images were obtained using the SPECT gamma camera interlaced with the gating device. Images were obtained in supine position. Resting perfusion study was performed on 10/19/2024. Patient was administered 40 mCi of sestamibi intravenously at rest. Images were then obtained in supine position. Total DLP 119 mGy-cm. Images were processed with the software and compared side to side in short axis, horizontal long axis and vertical long axis views. Findings: Raw aquisition reviewed. The stress perfusion study showed absent tracer uptake in the mid to distal part of anterior wall; severely reduced tracer uptake in the basal to mid part of septum. Overall, no major change with CT attenuation correction. The gated study shows diminished LV systolic function with calculated LVEF of 36%. LV cavity is normal in size. The gated study shows a candidate segments in the mid to distal part of anterior wall; basal to mid septum, apex. Resting study shows markedly reduced tracer uptake in the mid to distal part of anterior wall but improved compared to stress acquisition. No major change with CT attenuation correction. There is also reduced tracer uptake in the basal septum, slightly better in some areas compared to stress acquisition. Gating at rest reveals reduced mid to distal anterior wall contractility with ejection fraction at 37%. The findings are consistent with mixed anterior perfusion defect; mostly reversible with some fixed areas. Mostly fixed basal to mid septal defect with some reversibility. NM/NM cardiolite stress test Impression: 1. Myocardial perfusion imaging study shows LAD territory ischemia/infarct pattern, based on reversible anterior wall findings. Septal perfusion defect could be related to left bundle branch block. 2. Gated LVEF is 36% during stress and 37% during rest. 3. Transient ischemic dilatation ratio 1.38. EKG component of the test reported separately. Electronically signed by: Dennis Fernández MD 10/21/2024 02:27 PM [facility] [place]
--- NOTE | 2024-10-18 08:55 | CA_ITS ---
Acquisition Time: 2024-10-18 09:15:56 Total Exercise Time: 00:02:00 Test Indications: Abnormal ECG Medications: Protocol: LEXISCAN Max HR: 126 BPM 82% of Pred: 153 BPM Max BP: 118/072 mmHG Max Work Load: 1.0 METS Pharmacologic Stress Test with Lexiscan, while pt kicks her legs in the chair, with reports of dizziness, no chest discomfort, without any new arrythmias, with normotensive response to injection. Nondiagnostic EKG for ischemia. In recovery, pt treated with IVP AMinophylline 75mg to reverse Lexiscan, after which the dizziness resolved. Nuclear images pending. Test reviewed with Dr. Fernández. Referred By: Kevin Mendez Overread By:
--- OUTSIDE RECORDS SUMMARY | 2024-10-18 09:09 | XMS_ITS | Clinical Summary ---
Author Organization Unknown Care Team Providers Care Java Software Engineer Name Role Phone LANCE MENDOZA, CARMEN Unavailable Unavailable MEL PT, RUIZ Unavailable Unavailable GALINDO VILLEGAS, CLINICAL WAREHOUSE ORDER PULLER, GUADALUPE Thomas available Unavailable Payers Payer Name Policy Type Policy Number Effective Date Expira tion Date MEDICARE - [facility] - [place] [id number] [facility] [id number] Problems Condition Name Condition Details Condition Category [...] IS, UNSPECIFIED SITE Active 2022-10 00:00: 00 LONGTERM (CURRENT) USE OF ANTICOAGULAN TS Active 2022-10 [...] 07-29 00:00: 00 07-05 23:59 :00 No [id number] Per instruc tions TWICE DAILY Per instructio ns TWICE DAILY (route: oral) Med Classific ation: Gastroint estinal Therapy Agents trazodone 150 mg tablet 07-26 00:00: 00 07-05 23:59 :00 No [id number] 1 tablet BEDTIME 1 tablet BEDTIME (route: oral) Med Classific ation: Central Nervous System Agents divalproex 500 mg tablet,shahana yed release 07-22 00:00: 00 10-16 23:59 :00 No [id number] 1 tablet 2 TIMES DAILY 1 tablet 2 TIMES DAILY (route: oral) Med Classific ation: Central Nervous System Agents metoprolol succinate ER 50 mg tablet,exte nded release 24 hr 07-21 00:00: 00 07-05 23:59 :00 No [id number] 1 tablet 2 TIMES DAILY 1 tablet 2 TIMES DAILY (route: oral) Med Classific ation: Cardiovas cular Therapy Agents amiodarone 100 mg tablet 07-16 00:00: 00 09-07 23:59 :00 No [id number] 1 tablet DAILY 1 tablet DAILY (route: oral) Med Classific ation: Cardiovas cular Therapy Agents furosemide 20 mg tablet 07-16 00:00: 00 09-07 23:59 :00 No [id number] 1 tablet DAILY 1 tablet DAILY (route: oral) Med Classific ation: Cardiovas cular Therapy Agents levothyroxi ne 150 mcg tablet 07-16 00:00: 00 07-05 23:59 :00 No [id number] 1 tablet DAILY 1 tablet DAILY (route: oral) Med Classific ation: Endocrine Xarelto 20 mg tablet 07-07 00:00: 00 07-05 23:59 :00 No [id number] 1 tablet DAILY 1 tablet DAILY (route: oral) Med Classific ation: Hematolog ical Agents divalproex 250 mg tablet,shahana yed release 2022-10 0 00:00: 00 10-16 23:59 :00 No [id number] 1 tablet BEDTIME 1 tablet BEDTIME (route: oral) Med Classific ation: Central Nervous System Agents Vancocin 125 mg capsule 2022-10 00:00: 00 09-23 23:59 :00 No [id number] 125 mg 4 TIMES DAILY 125 mg [...] PRN VIRTUAL VISITS MAY BE PERFORMED UTILIZING [employer] SYSTEM TO OPTIMIZE SKILLED SERVICES FURNISHED ON [...] CARE WILL BE ESTABLISHED THAT MEETS PATIENT'S LONG TERM NEEDS AND INCLUDES PATIENT GOAL FOR HOME [...] End Date/Time Encounter Type Admission Type Attending [facility] Care Department Encounter ID Discharge Date Discharge Status Discharge Condition Discharge Reason Percent Goals Met 2023-10-16 00:00:00 2023-11-14 00:00:00 Outpatient GUADALUPE WALKER [facility] [id number] 2023-11-14 00:00:00 DISCHARGE TO HOME OR SELF CARE MINIMUM ASSIST WITH TRANSFER/A MBULATION/ ADLS GOALS MET ( ONLY) 95.92
== END ==
LOC: HO.CARD 08:51
PROVIDERS: PCP Internal Medicine; Visit Provider Internal Medicine Cardiovascular Disease
DX: I44.7 Left bundle-branch block, unspecified (principal); I48.20 Chronic atrial fibrillation, unspecified; R05.8 Other specified cough; R55 Syncope and collapse
CPT/HCPCS: 78452; 93017; 93225; A9500; J0280; J2785

== ENCOUNTER → 2024-10-18 09:18 | Outpatient (BNV) | payer MEDICARE, BC, SELFPAY | PROVIDERS: PCP Internal Medicine; Visit Provider Internal Medicine | DX: I48.91 Unspecified atrial fibrillation (principal) | CPT/HCPCS: 93227 ==

== ENCOUNTER 2024-10-19 08:37 | Outpatient (AMB) | payer MEDICARE, BC, SELFPAY ==
--- NOTE | 2024-10-19 00:47 | MHC.OFFVIS ---
Intake Visit Reasons: discuss bladder instillations Intake Note: Patient is present for discuss bladder instillations Urology Med: none Antibiotic Allergy: none Blood Thinner: none Patient Symptoms: Chimney Mechanic Required: No Accompanied by: Self / Same As Patient Allergies aspirin [ASA] Allergy (Intermediate, Verified 10/19/24 08:40) GI PAIN, upset stomach hazelnut Allergy (Unknown, Verified 10/19/24 08:40) Unknown shellfish derived Allergy (Unknown, Verified 10/19/24 08:40) Unknown divalproex sodium [From Depakote] Allergy (Verified 10/19/24 08:40) diarrhea, brain fog gluten Allergy (Verified 10/19/24 08:40) Unknown sesame seeds Allergy (Unknown, Uncoded 10/19/24 08:40) Unknown Medication List - Last Reconciled 10/19/24 by Mariano Sanchez MD acetaminophen 1,000 mg PO DAILY PRN amiodarone 400 mg (2 x 200 mg) PO BID cholecalciferol (vitamin D3) 25 mcg PO DAILY 90 days ferrous sulfate 325 mg PO BIDWM furosemide 40 mg See Protocol PO DAILY glipizide 2.5 mg PO DAILY levothyroxine 150 mcg PO DAILY@0600 metoprolol succinate ER 75 mg PO BID nystatin 1 appl topical DAILY 30 days quetiapine ER 150 mg PO BEDTIME rivaroxaban (Xarelto) 20 mg PO DAILY@1700 sacubitril-valsartan 24-26 mg (Entresto) 1 tab See Protocol PO BID spironolactone 25 mg See Protocol PO DAILY trazodone 225 mg PO BEDTIME HPI Comments Details: 10/19/2024--Bianca is a 69-year-old female status post TURBT 06/26/2024. PMH significant for?HTN, paroxysmal AFib on Xarelto, hypothyroidism, recurrent UTIs, IBS, celiac disease, bipolar disorder. The patient initially agreed to bladder installations. Telehealth call today with her daughter Fernanda who is her health proxy also on the phone Bianca states that she no longer wants bladder treatments. I reviewed the pathology report and emphasized the tumor was high-grade and invading into the lamina propria as well as other biopsies with carcinoma in Situ and the risk recurrence of the bladder cancer. I discussed bladder installations recommended including BCG immunotherapy and the chemo agent gemcitabine with docetaxol. The patient states she will get a second opinion, which I support as well. The patient expressed concerns regarding hematuria post initial TUR BT, as the patient was restarted on Xarelto as was recommended, I discussed Bianca there is a balance between risks and benefits when patients are on anti coagulation management. Reviewed labs and discussed with patient November labs note that her hemoglobin is back to baseline. Discussed surveillance cystoscopies and urine sent for cytology as part follow-up. 30 minutes spent in review of records pertaining to this visit and including voice discussion with the patient and documentation of this visit. 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 Treatment options discussed and The patient previously stated she wanted to be referred for surgery for cystectomy. PET CT was ordered on 08/11/24 and has not been done. Start bladder installations with gentamicin typo error (gemcitabine) and doxorubicin typo error (docetaxel) [birth year]-89-dexp-old female with a PMH significant for?HTN, paroxysmal AFib on Xarelto, hypothyroidism, recurrent UTIs, IBS, celiac disease, bipolar disorder. S/P TurBT on 06/26/24, She had stopped her Xarelto 4 days prior to procedure and then restarted on Monday 07/02. She was admitted to [facility] for hematuria on 07/06/24 and had cystoscopy evacuation of blood clots and fulguration of biopsied areas in the bladder. The patient does not want to proceed with bladder instillations as discussed and wants to be referred for surgical management. 08/06/24--69-year-old female with a PMH significant for?HTN, paroxysmal AFib on Xarelto, hypothyroidism, recurrent UTIs, IBS, celiac disease, bipolar disorder. S/P TurBT on 06/26/24, She had stopped her Xarelto 4 days prior to procedure and then restarted on Monday 07/02. She was admitted to [facility] for hematuria on 07/06/24 and had cystoscopy evacuation of blood clots and fulguration of biopsied areas in the bladder. 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 Discussed treatment options to include bladder installations with BCG versus chemo agent. BCG is not available at [facility] currently, discussed scheduling bladder installations with gemcitabine and doceTaxol. We will obtain PET scan. 07/26/24--S/P TurBT on 06/26/24, She was admitted to [facility] for hematuria on 07/06/24 and had cystoscopy evacuation of blood clots and fulguration of biopsied areas in the bladder. 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 Discussed treatment options. The patient wants to think about what we discussed and wants a fu visit to go over further questions she may have. 06/08/24--Bianca is a 68 y/o female here with complaints of hematuria and recurrent UTI's. States started about Feb, 2024. Her is present and gives most of the history. He states she was given 4 courses of antibiotics, nitrofurantoin. 03/2024 urine c/s - Ecoli. Sensitivities noted below. In review of chart: CTAPw/contrast - kidneys wnL, abnormal findings in bladder. UA nitrite positive- will empically treat with levaquin 500 mg daily. H/o nicotine use. Will send urine for culture and cytology. Renal US. Discussed cysto/TURBT, pt on anticoagulation, need Cardiology clearance. Office cystoscopy: papillary bladder tumor, right lateral wall. [facility] Medical History Non-insulin dependent type 2 diabetes mellitus Atrial flutter Bladder cancer Acute blood loss anemia Recurrent UTI Bilateral dacryocystitis Fall Frequency of urination Gait instability UTI (urinary tract infection) Pre-syncope Irritable bowel syndrome with diarrhea Chronic atrial fibrillation Paroxysmal atrial fibrillation C. difficile colitis Morbid obesity due to excess calories Weakness Leg edema Bipolar 1 disorder Vertigo PTSD (post-traumatic stress disorder) History of cardioversion Arthritis Hypothyroidism History of wheezing Diabetes mellitus HTN (hypertension) LBBB (left bundle branch block) PAF (paroxysmal atrial fibrillation) Surgical History History of cardiac radiofrequency ablation History of eye surgery Hx of section Hx of colonoscopy Hx of cholecystectomy Hx of arthroscopy of right knee Family History Father No problems noted. Mother No problems noted. Other Mental health disorder Substance use disorder Social History Household Members: Spouse Household Members Other:: daughter + Housing: Condominium Do you presently have visiting nurse or other home services: Yes Alcohol intake: former Comment: feels safe and has a lift at home Patient Tobacco Use Status: Former Tobacco user e-Cigarette/Vaping Use: Never Used Second Hand Smoke Exposure: No Advance Directives Date on File: 06/29/23 service: No Current occupational status: employed Sexual orientation: Straight/Heterosexual Cognitive needs: No Hearing needs: No Vision needs: Yes Review of Systems Const All systems reviewed & are unremarkable except as noted in HPI and below Reports no additional complaints Eyes Reports no additional complaints ENT Reports no additional complaints Card Reports no additional complaints Resp Reports no additional complaints GI Reports no additional complaints Reports as per HPI Musc Reports no additional complaints Skin/Breast Reports system reviewed and no additional complaints, except as documented Neuro Reports no additional complaints Psych Reports no additional complaints Endo Reports no additional complaints Serafin/Lymph Reports no additional complaints Aller/Immun Reports no additional complaints Telehealth Telehealth Telehealth [facility] Location of provider rendering services: practice address Location of patient: address on file Patient Identification confirmed using: Name, : Yes Telehealth method: voice only Patient verbally consented to treatment: Yes Patient verbally consented to billing insurance company: Yes Patient informed of any privacy concerns related to visit: Yes Minutes spent on Phone/Video with Pt.: 22 Results Reviewed Results Reviewed: Date of Service: 10/02/24 EXAMINATION: Fluorine-18 FDG PET/CT Scan CLINICAL INDICATION: Initial treatment management. Bilateral cancer, staging PROCEDURE: 64 minutes following the intravenous administration of 20.9 mCi of fluorine 18 FDG, images from the base of the skull to the mid thighs were obtained using a combined PET/CT scanner with CT scan based attenuation correction. No oral contrast was administered. No intravenous contrast was administered. Transverse, coronal, sagittal, and volume reconstruction projections were obtained. The patient's blood glucose as determined by a finger stick, was 185 mg/dl immediately prior to injection. Total CT exam dose-length product 1279.42 mGy-cm * These CT images were obtained using dose optimization techniques as appropriate, variously including the following: Automated exposure control * Adjustment of mA and/or kV according to patient size (this includes techniques or standardized protocols for targeted exams where dose is matched to indication/reason for exam; i.e. extremities or head) * Use of iterative reconstruction technique COMPARISON: No previous PET CT scan is available for comparison. The diagnostic CT scan of the abdomen and pelvis, dated 09/29/2023, is available for comparison. FINDINGS: NECK AND VISUALIZED HEAD: No foci of abnormal FDG activity are noted. The distribution of FDG activity is physiological. There is no cervical lymphadenopathy. THORAX: There are no foci of abnormal FDG activity in the chest. There is a small focus of scarring or atelectasis anterolaterally in the inferior lingular segment with no associated abnormal FDG activity. No suspicious pulmonary nodules are visualized. There is no pleural or pericardial fluid, or pneumothorax. There is no mediastinal, supraclavicular, or axillary lymphadenopathy. ABDOMEN AND PELVIS: There are no foci of abnormal FDG activity in the abdomen or pelvis. There is mild FDG activity throughout the gastrointestinal tract without a suspicious focal component. There is diverticulosis without evidence of diverticulitis. The hollow viscera are otherwise unremarkable. The liver and spleen are unremarkable. The gallbladder has been resected and there are metallic surgical clips in the gallbladder bed. The kidneys, adrenal glands and pancreas are unremarkable. An enhancing nodular focus in the posterolateral aspect of the urinary bladder wall visualized on the 09/29/[address] scan is not apparent on the current study, performed without intravenous contrast. The bladder now appears unremarkable. The remainder the pelvic organs are also unremarkable. There is no retroperitoneal, mesenteric, pelvic or inguinal lymphadenopathy. MUSCULOSKELETAL: There are no foci of abnormal FDG activity in the osseous structures. There is a mild thoracolumbar scoliosis with lumbar convexity to the left. There are degenerative changes in the spine, but no suspicious sclerotic or lytic lesions are visualized. VASCULAR: Diffuse vascular calcifications including coronary are noted. IMPRESSION: 1. No abnormalities suspicious for metastatic or other malignant lesions are noted. 2. An enhancing nodular opacity in the right posterolateral bladder wall visualized on the 09/29/[address] scan is not visualized on these nondiagnostic CT images. 3. Vascular calcifications including coronary. Collected: 06/26/24 Location: [facility] Received: 06/26/24 Diagnosis A. Bladder, posterior wall, transurethral resection: Carcinoma in-situ. B. Bladder, random left lateral wall, biopsy: Chronic cystitis. C. Bladder, erythematous flat lesion right lateral wall, transurethral resection: Carcinoma in-situ. D. Bladder, Transurethral resection: - High-grade urothelial carcinoma, invasive into lamina propria. - Muscularis propria present. Bladder, transurethral resection/biopsy Procedure: Transurethral resection; multiple biopsies Tumor site: Not specified Histologic type: Urothelial carcinoma (CIS in two other biopsies) Histologic grade: High grade Muscularis propria: Present Extent of invasion: Lamina propria Lymphovascular invasion: Not identified Clinical History Bladder tumor Date of Service: 09/29/23 EXAMINATION: CT ABDOMEN AND PELVIS WITH CONTRAST CLINICAL INFORMATION: Abdominal pain, sepsis COMPARISON: CT abdomen and pelvis 09/03/2023 TECHNIQUE: Multidetector volumetric images were obtained from the superior aspect of the liver through the pubic symphysis following administration 85 mL of Omnipaque 350 intravenous contrast. Sagittal and coronal reformatted images were obtained on the technologist's workstation. Oral contrast: No This CT examination was performed using dose optimization techniques as appropriate, variously including the following: *Automated exposure control *Adjustment of mA and/or kV according to patient size (this includes techniques or standardized protocols for targeted exams where dose is matched to indication/reason for exam; i.e. extremities or head) *Use of iterative reconstruction technique DLP: 1693 mGy-cm FINDINGS: There is motion artifact throughout the exam limiting evaluation. LUNG BASES: The visualized lung bases are unremarkable. LIVER, GALLBLADDER, AND BILIARY TREE: The liver is normal in size, shape, with a low-attenuation area in the left hepatic and right hepatic lobe on axial slice 18/3 no focal hepatic lesion or biliary ductal dilatation is present. There are surgical dayday in the right upper quadrant from previous cholecystectomy. PANCREAS: Unremarkable. SPLEEN: Unremarkable. ADRENAL GLANDS: Unremarkable. KIDNEYS AND URETERS: The kidneys are normal in size, shape, and attenuation. No hydronephrosis, hydroureter, or calculi seen. No perinephric stranding. BLADDER: There is mild bladder wall thickening with enhancing 1.2 cm nodule along the right posterior bladder wall and moderate bladder wall thickening along the base. No radiopaque calculi seen. GASTROINTESTINAL TRACT: There is scattered stool and gas seen throughout the colon without distention. The small bowel loops are normal caliber. Appendix is not seen. ABDOMINAL WALL: No significant hernia is appreciated. LYMPH NODES: Normal. VASCULAR: Unremarkable. PELVIC VISCERA: Unremarkable. OSSEOUS STRUCTURES: Mild degenerative disc changes with vacuum disc phenomena at L1-L2, L3-L4 disc levels. No aggressive lytic or sclerotic process. There is mild ventral spondylosis mid lumbar spine. IMPRESSION: 1. No acute intra-abdominal process seen. 2. Mild bladder wall thickening with enhancing nodule along the right posterior bladder wall and moderate bladder wall thickening along the base. No change from the last exam. Recommend cystoscopy. 3. Low-attenuation area in the left and right hepatic lobe are stable. 4. Mild constipation. Assessment & Plan Assessment & Plan (1) Bladder cancer: Code(s): C67.9 - Malignant neoplasm of bladder, unspecified Category: Medical Qualifiers: Bladder location: unspecified site Qualified Code(s): C67.9 - Malignant neoplasm of bladder, unspecified (2) Chronic anticoagulation: Code(s): Z79.01 - intermediate teacher (current) use of anticoagulants Category: Medical (3) CIS (carcinoma in situ of bladder): Code(s): D09.0 - Carcinoma in situ of bladder Category: Medical Plan Surveillance cystoscopy urine cytology at that time Patient Instructions: The patient had an opportunity to ask questions regarding treatment plan. The patient expressed understanding and agreement with the above treatment plan. The patient is aware they should contact our office by phone for worsening of their current condition or the appearance of new symptoms. Compliance is encouraged with any medications and followup testing that is ordered. It is a privilege to be allowed the opportunity to participate in the urologic care of your patient. If you have any questions or concerns regarding treatment for the above conditions please do not hesitate to contact me. The office telephone contact is [phone]. This note is constructed in part using voice recognition software. While every effort has been made to ensure accuracy private investigator surveillance errors may have been included. Yours sincerely, Mariano Sanchez MD Coding Level of Care Code Tele Est Pt Level 4 (04334) Diagnoses Malignant neoplasm of urinary bladder, unspecified site C67.9 Bladder location: unspecified site Chronic anticoagulation Z79.01 CIS (carcinoma in situ of bladder) D09.0
--- OUTSIDE RECORDS SUMMARY | 2024-10-19 08:40 | XMS_ITS | Clinical Summary ---
Author Organization Unknown Care Team Providers Care Twisting Department End Finder Name Role Phone LANCE MENDOZA, CARMEN Unavailable Unavailable MEL CONNOR, RUIZ Unavailable Unavailable GALINDO VILLEGAS, CLINICAL ARTIST'S MODEL, GUADALUPE Thomas available Unavailable Payers Payer Name Policy Type Policy Number Effective Date Expira tion Date MEDICARE - [facility]/[place] - PD [id number] [facility] [id number] Problems Condition Name Condition Details Condition Category [...] IS, UNSPECIFIED SITE Active 2022-10 00:00: 00 HALF-WAY (CURRENT) USE OF ANTICOAGULAN TS Active 2022-10 [...] 07-29 00:00: 00 07-05 23:59 :00 No [id number] Per instruc tions TWICE DAILY Per instructio ns TWICE DAILY (route: oral) Med Classific ation: Gastroint estinal Therapy Agents trazodone 150 mg tablet 07-26 00:00: 00 07-05 23:59 :00 No [id number] 1 tablet BEDTIME 1 tablet BEDTIME (route: oral) Med Classific ation: Central Nervous System Agents divalproex 500 mg tablet,shahana yed release 07-22 00:00: 00 10-16 23:59 :00 No [id number] 1 tablet 2 TIMES DAILY 1 tablet 2 TIMES DAILY (route: oral) Med Classific ation: Central Nervous System Agents metoprolol succinate ER 50 mg tablet,exte nded release 24 hr 07-21 00:00: 00 07-05 23:59 :00 No [id number] 1 tablet 2 TIMES DAILY 1 tablet 2 TIMES DAILY (route: oral) Med Classific ation: Cardiovas cular Therapy Agents amiodarone 100 mg tablet 07-16 00:00: 00 09-07 23:59 :00 No [id number] 1 tablet DAILY 1 tablet DAILY (route: oral) Med Classific ation: Cardiovas cular Therapy Agents furosemide 20 mg tablet 07-16 00:00: 00 09-07 23:59 :00 No [id number] 1 tablet DAILY 1 tablet DAILY (route: oral) Med Classific ation: Cardiovas cular Therapy Agents levothyroxi ne 150 mcg tablet 07-16 00:00: 00 07-05 23:59 :00 No [id number] 1 tablet DAILY 1 tablet DAILY (route: oral) Med Classific ation: Endocrine Xarelto 20 mg tablet 07-07 00:00: 00 07-05 23:59 :00 No [id number] 1 tablet DAILY 1 tablet DAILY (route: oral) Med Classific ation: Hematolog ical Agents divalproex 250 mg tablet,shahana yed release 2022-10 0 00:00: 00 10-16 23:59 :00 No [id number] 1 tablet BEDTIME 1 tablet BEDTIME (route: oral) Med Classific ation: Central Nervous System Agents Vancocin 125 mg capsule 2022-10 00:00: 00 09-23 23:59 :00 No [id number] 125 mg 4 TIMES DAILY 125 mg [...] PRN VIRTUAL VISITS MAY BE PERFORMED UTILIZING [employer] SYSTEM TO OPTIMIZE SKILLED SERVICES FURNISHED ON [...] CARE WILL BE ESTABLISHED THAT MEETS PATIENT'S ALF NEEDS AND INCLUDES PATIENT GOAL FOR HOME [...] End Date/Time Encounter Type Admission Type Attending [facility] Care Department Encounter ID Discharge Date Discharge Status Discharge Condition Discharge Reason Percent Goals Met 2023-10-16 00:00:00 2023-11-14 00:00:00 Outpatient GUADALUPE WALKER [facility] [id number] 2023-11-14 00:00:00 DISCHARGE TO HOME OR SELF CARE MINIMUM ASSIST WITH TRANSFER/A MBULATION/ ADLS GOALS MET ( ONLY) 95.92
--- OUTSIDE RECORDS SUMMARY | 2024-10-19 08:40 | XMS_ITS | Clinical Summary ---
Author Organization Unknown Care Team Providers Care Digital Computer Systems Analyst Name Role Phone LANCE MENDOZA, CARMEN Unavailable Unavailable MEL CONNOR, RUIZ Unavailable Unavailable GALINDO VILLEGAS, CLINICAL BEAM DEPARTMENT SUPERVISOR, GUADALUPE Thomas available Unavailable Payers Payer Name Policy Type Policy Number Effective Date Expira tion Date MEDICARE - [facility]/[place] - [place] [id number] [facility] [id number] Problems Condition Name Condition Details Condition Category [...] IS, UNSPECIFIED SITE Active 2022-10 00:00: 00 [place]ENT[place] (CURRENT) USE OF ANTICOAGULAN TS Active 2022-10 [...] 07-29 00:00: 00 07-05 23:59 :00 No [id number] Per instruc tions TWICE DAILY Per instructio ns TWICE DAILY (route: oral) Med Classific ation: Gastroint estinal Therapy Agents trazodone 150 mg tablet 07-26 00:00: 00 07-05 23:59 :00 No [id number] 1 tablet BEDTIME 1 tablet BEDTIME (route: oral) Med Classific ation: Central Nervous System Agents divalproex 500 mg tablet,shahana yed release 07-22 00:00: 00 10-16 23:59 :00 No [id number] 1 tablet 2 TIMES DAILY 1 tablet 2 TIMES DAILY (route: oral) Med Classific ation: Central Nervous System Agents metoprolol succinate ER 50 mg tablet,exte nded release 24 hr 07-21 00:00: 00 07-05 23:59 :00 No [id number] 1 tablet 2 TIMES DAILY 1 tablet 2 TIMES DAILY (route: oral) Med Classific ation: Cardiovas cular Therapy Agents amiodarone 100 mg tablet 07-16 00:00: 00 09-07 23:59 :00 No [id number] 1 tablet DAILY 1 tablet DAILY (route: oral) Med Classific ation: Cardiovas cular Therapy Agents furosemide 20 mg tablet 07-16 00:00: 00 09-07 23:59 :00 No [id number] 1 tablet DAILY 1 tablet DAILY (route: oral) Med Classific ation: Cardiovas cular Therapy Agents levothyroxi ne 150 mcg tablet 07-16 00:00: 00 07-05 23:59 :00 No [id number] 1 tablet DAILY 1 tablet DAILY (route: oral) Med Classific ation: Endocrine Xarelto 20 mg tablet 07-07 00:00: 00 07-05 23:59 :00 No [id number] 1 tablet DAILY 1 tablet DAILY (route: oral) Med Classific ation: Hematolog ical Agents divalproex 250 mg tablet,shahana yed release 2022-10 0 00:00: 00 10-16 23:59 :00 No [id number] 1 tablet BEDTIME 1 tablet BEDTIME (route: oral) Med Classific ation: Central Nervous System Agents Vancocin 125 mg capsule 2022-10 00:00: 00 09-23 23:59 :00 No [id number] 125 mg 4 TIMES DAILY 125 mg [...] PRN VIRTUAL VISITS MAY BE PERFORMED UTILIZING [employer] SYSTEM TO OPTIMIZE SKILLED SERVICES FURNISHED ON [...] CARE WILL BE ESTABLISHED THAT MEETS PATIENT'S NURSING HOME NEEDS AND INCLUDES PATIENT GOAL FOR HOME [...] End Date/Time Encounter Type Admission Type Attending [facility] Care Department Encounter ID Discharge Date Discharge Status Discharge Condition Discharge Reason Percent Goals Met 2023-10-16 00:00:00 2023-11-14 00:00:00 Outpatient GUADALUPE WALKER [facility] [id number] 2023-11-14 00:00:00 DISCHARGE TO HOME OR SELF CARE MINIMUM ASSIST WITH TRANSFER/A MBULATION/ ADLS GOALS MET ( ONLY) 95.92
== END 2024-10-19 10:16 | disposition home or self-care (01) ==
LOC: HO.HUSH 08:38
PROVIDERS: PCP Internal Medicine; Visit Provider Urology
DX: C67.9 Malignant neoplasm of bladder, unspecified (principal); Z79.01 Long term (current) use of anticoagulants; D09.0 Carcinoma in situ of bladder
CPT/HCPCS: 99443

== ENCOUNTER → 2024-10-19 08:37 | Outpatient (BNVA) | payer MEDICARE, BC, SELFPAY | PROVIDERS: PCP Internal Medicine; Visit Provider Urology ==

== ENCOUNTER 2024-11-20 09:01 | Outpatient (AMB) | payer MEDICARE, BC, SELFPAY ==
--- OUTSIDE RECORDS SUMMARY | 2024-11-20 09:26 | XMS_ITS | Clinical Summary ---
Author Organization Unknown Care Team Providers Care Peanut Vendor Name Role Phone LANCE MENDOZA, CARMEN Unavailable Unavailable MEL CONNOR, RUIZ Unavailable Unavailable GALINDO VILLEGAS, CLINICAL MEDICAL RECORD TECHNICIAN, GUADALUPE Thomas available Unavailable Payers Payer Name Policy Type Policy Number Effective Date Expira tion Date MEDICARE - [facility]/[place] [id number] [facility] [id number] Problems Condition Name Condition Details Condition Category [...] IS, UNSPECIFIED SITE Active 2022-10 00:00: 00 [facility] (CURRENT) USE OF ANTICOAGULAN TS Active 2022-10 [...] 07-29 00:00: 00 07-05 23:59 :00 No [id number] Per instruc tions TWICE DAILY Per instructio ns TWICE DAILY (route: oral) Med Classific ation: Gastroint estinal Therapy Agents trazodone 150 mg tablet 07-26 00:00: 00 07-05 23:59 :00 No [id number] 1 tablet BEDTIME 1 tablet BEDTIME (route: oral) Med Classific ation: Central Nervous System Agents divalproex 500 mg tablet,shahana yed release 07-22 00:00: 00 10-16 23:59 :00 No [id number] 1 tablet 2 TIMES DAILY 1 tablet 2 TIMES DAILY (route: oral) Med Classific ation: Central Nervous System Agents metoprolol succinate ER 50 mg tablet,exte nded release 24 hr 07-21 00:00: 00 07-05 23:59 :00 No [id number] 1 tablet 2 TIMES DAILY 1 tablet 2 TIMES DAILY (route: oral) Med Classific ation: Cardiovas cular Therapy Agents amiodarone 100 mg tablet 07-16 00:00: 00 09-07 23:59 :00 No [id number] 1 tablet DAILY 1 tablet DAILY (route: oral) Med Classific ation: Cardiovas cular Therapy Agents furosemide 20 mg tablet 07-16 00:00: 00 09-07 23:59 :00 No [id number] 1 tablet DAILY 1 tablet DAILY (route: oral) Med Classific ation: Cardiovas cular Therapy Agents levothyroxi ne 150 mcg tablet 07-16 00:00: 00 07-05 23:59 :00 No [id number] 1 tablet DAILY 1 tablet DAILY (route: oral) Med Classific ation: Endocrine Xarelto 20 mg tablet 07-07 00:00: 00 07-05 23:59 :00 No [id number] 1 tablet DAILY 1 tablet DAILY (route: oral) Med Classific ation: Hematolog ical Agents divalproex 250 mg tablet,shahana yed release 2022-10 0 00:00: 00 10-16 23:59 :00 No [id number] 1 tablet BEDTIME 1 tablet BEDTIME (route: oral) Med Classific ation: Central Nervous System Agents Vancocin 125 mg capsule 2022-10 00:00: 00 09-23 23:59 :00 No [id number] 125 mg 4 TIMES DAILY 125 mg [...] PRN VIRTUAL VISITS MAY BE PERFORMED UTILIZING [employer] SYSTEM TO OPTIMIZE SKILLED SERVICES FURNISHED ON [...] CARE WILL BE ESTABLISHED THAT MEETS PATIENT'S FCI NEEDS AND INCLUDES PATIENT GOAL FOR HOME [...] End Date/Time Encounter Type Admission Type Attending [facility] Care Department Encounter ID Discharge Date Discharge Status Discharge Condition Discharge Reason Percent Goals Met 2023-10-16 00:00:00 2023-11-14 00:00:00 Outpatient GUADALUPE WALKER [facility] [id number] 2023-11-14 00:00:00 DISCHARGE TO HOME OR SELF CARE MINIMUM ASSIST WITH TRANSFER/A MBULATION/ ADLS GOALS MET ( ONLY) 95.92
--- OUTSIDE RECORDS SUMMARY | 2024-11-20 09:26 | XMS_ITS | Clinical Summary ---
Author Organization Unknown Care Team Providers Care Physician Credentialing Specialist Name Role Phone LANCE MENDOZA, CARMEN Unavailable Unavailable MEL CONNOR, RUIZ Unavailable Unavailable GALINDO VILLEGAS, CLINICAL ORTHOPEDIC MECHANIC, GUADALUPE Thomas available Unavailable Payers Payer Name Policy Type Policy Number Effective Date Expira tion Date MEDICARE - [facility]/[place] - [place] [id number] [facility] [id number] Problems Condition Name Condition Details Condition Category [...] IS, UNSPECIFIED SITE Active 2022-10 00:00: 00 [facility] (CURRENT) USE OF ANTICOAGULAN TS Active 2022-10 [...] 07-29 00:00: 00 07-05 23:59 :00 No [id number] Per instruc tions TWICE DAILY Per instructio ns TWICE DAILY (route: oral) Med Classific ation: Gastroint estinal Therapy Agents trazodone 150 mg tablet 07-26 00:00: 00 07-05 23:59 :00 No [id number] 1 tablet BEDTIME 1 tablet BEDTIME (route: oral) Med Classific ation: Central Nervous System Agents divalproex 500 mg tablet,shahana yed release 07-22 00:00: 00 10-16 23:59 :00 No [id number] 1 tablet 2 TIMES DAILY 1 tablet 2 TIMES DAILY (route: oral) Med Classific ation: Central Nervous System Agents metoprolol succinate ER 50 mg tablet,exte nded release 24 hr 07-21 00:00: 00 07-05 23:59 :00 No [id number] 1 tablet 2 TIMES DAILY 1 tablet 2 TIMES DAILY (route: oral) Med Classific ation: Cardiovas cular Therapy Agents amiodarone 100 mg tablet 07-16 00:00: 00 09-07 23:59 :00 No [id number] 1 tablet DAILY 1 tablet DAILY (route: oral) Med Classific ation: Cardiovas cular Therapy Agents furosemide 20 mg tablet 07-16 00:00: 00 09-07 23:59 :00 No [id number] 1 tablet DAILY 1 tablet DAILY (route: oral) Med Classific ation: Cardiovas cular Therapy Agents levothyroxi ne 150 mcg tablet 07-16 00:00: 00 07-05 23:59 :00 No [id number] 1 tablet DAILY 1 tablet DAILY (route: oral) Med Classific ation: Endocrine Xarelto 20 mg tablet 07-07 00:00: 00 07-05 23:59 :00 No [id number] 1 tablet DAILY 1 tablet DAILY (route: oral) Med Classific ation: Hematolog ical Agents divalproex 250 mg tablet,shahana yed release 2022-10 0 00:00: 00 10-16 23:59 :00 No [id number] 1 tablet BEDTIME 1 tablet BEDTIME (route: oral) Med Classific ation: Central Nervous System Agents Vancocin 125 mg capsule 2022-10 00:00: 00 09-23 23:59 :00 No [id number] 125 mg 4 TIMES DAILY 125 mg [...] PRN VIRTUAL VISITS MAY BE PERFORMED UTILIZING [employer] SYSTEM TO OPTIMIZE SKILLED SERVICES FURNISHED ON [...] 2023-10-16 00:00:00 2023-11-14 00:00:00 Outpatient GUADALUPE WALKER [facility] [id number] 2023-11-14 00:00:00 DISCHARGE TO HOME OR SELF CARE MINIMUM ASSIST WITH TRANSFER/A MBULATION/ ADLS GOALS MET ( ONLY) 95.92
[2024-11-20 09:31] VITALS: BP 100/52; PULSE 53; BMI 43.0
--- NOTE | 2024-11-20 09:31 | A.OFFVIS_ITS ---
Vital Signs 11/20/24 09:31 Height 5 ft 3 in Weight 242 lb 8.136 oz BMI 43.0 BP 100/52 L Blood Pressure Location Lt brachial Position Sitting Pulse 53 Pulse Source Monitor Intake Visit Reasons: f/u stress ? cath and afib Purchaser Required: No Adjunct Trainer: Adjunct Trainer Present Allergies aspirin [ASA] Allergy (Intermediate, Verified 11/20/24 09:33) GI PAIN, upset stomach hazelnut Allergy (Unknown, Verified 11/20/24 09:33) Unknown shellfish derived Allergy (Unknown, Verified 11/20/24 09:33) Unknown divalproex sodium [From Depakote] Allergy (Verified 11/20/24 09:33) diarrhea, brain fog gluten Allergy (Verified 11/20/24 09:33) Unknown sesame seeds Allergy (Unknown, Uncoded 11/20/24 09:33) Unknown Medication List - Last Reconciled 11/20/24 by ETHAN Gutierrez acetaminophen 1,000 mg PO DAILY PRN amiodarone 400 mg (2 x 200 mg) PO BID cholecalciferol (vitamin D3) 25 mcg PO DAILY 90 days ferrous sulfate 325 mg PO BIDWM furosemide 40 mg See Protocol PO DAILY glipizide 2.5 mg PO DAILY levothyroxine 150 mcg PO DAILY@0600 metoprolol tartrate 75 mg PO BID nystatin 1 appl topical DAILY 30 days quetiapine ER 150 mg PO BEDTIME rivaroxaban (Xarelto) 20 mg PO DAILY@1700 sacubitril-valsartan 24-26 mg (Entresto) 1 tab See Protocol PO BID 90 days spironolactone 25 mg See Protocol PO DAILY trazodone 225 mg PO BEDTIME HPI HPI f/u stress ? cath and afib: Details: Chloe is a 69-year-old female with past medical history of hypertension, diabetes, diastolic dysfunction, morbid obesity, sedentary, persistent AFib , bladder cancer who was recently admitted to [facility] with shortness of breath and edema. She was treated for diastolic heart failure and AFib RVR. She was diuresed and sent home with daily Lasix. She was started on amiodarone and converted to sinus rhythm. An echocardiogram showed reduced EF an outpatient nuclear stress test was abnormal. She now presents for follow-up. Today she reports doing well since her hospital discharge in August. She has not felt any recent heart palpitations. She denies having chest discomfort at rest or with activity. She is mostly sedentary and walks only short distances in her home. She is currently sitting in a wheelchair. She reports that she fatigues easily. She has chronic shortness of breath with exertional activities such as stair climbing and showers. No lightheadedness, presyncope, syncope, falls. No bleeding issues reported. Taking meds as directed. Family member present [facility] Medical History Non-insulin dependent type 2 diabetes mellitus Atrial flutter Bladder cancer Acute blood loss anemia Recurrent UTI Bilateral dacryocystitis Fall Frequency of urination Gait instability UTI (urinary tract infection) Pre-syncope Irritable bowel syndrome with diarrhea Chronic atrial fibrillation Paroxysmal atrial fibrillation C. difficile colitis Morbid obesity due to excess calories Weakness Leg edema Bipolar 1 disorder Vertigo PTSD (post-traumatic stress disorder) History of cardioversion Arthritis Hypothyroidism History of wheezing Diabetes mellitus HTN (hypertension) LBBB (left bundle branch block) PAF (paroxysmal atrial fibrillation) Surgical History History of cardiac radiofrequency ablation History of eye surgery Hx of section Hx of colonoscopy Hx of cholecystectomy Hx of arthroscopy of right knee Family History Father No problems noted. Mother No problems noted. Other Mental health disorder Substance use disorder Social History Household Members: Spouse Household Members Other:: daughter + Housing: Condominium Do you presently have visiting nurse or other home services: Yes Alcohol intake: former Comment: feels safe and has a lift at home Patient Tobacco Use Status: Former Tobacco user e-Cigarette/Vaping Use: Never Used Second Hand Smoke Exposure: No Advance Directives Date on File: 06/29/23 service: No Current occupational status: employed Sexual orientation: Straight/Heterosexual Cognitive needs: No Hearing needs: No Vision needs: Yes Review of Systems Const All systems reviewed & are unremarkable except as noted in HPI and below ENT Denies dizziness Card Denies chest pain, Denies chest pain at rest, Denies chest pain with activity, Denies rapid heart rate, Denies pedal edema, Denies edema, Denies leg edema, Denies lightheadedness, Denies palpitations, Denies dyspnea, Reports dyspnea on exertion and Denies orthopnea Resp Denies cough, Denies dyspnea and Reports dyspnea on exertion GI Denies hematochezia and Denies change in stool character Musc Reports abnormal gait (in wheelchair today - fatigues easily), Denies muscle weakness, Denies numbness, Denies radiating pain into limb, Denies stiffness and Denies tingling Neuro Reports abnormal gait (in wheelchair today - fatigues easily), Denies dizziness, Denies numbness and Denies tingling Endo Denies palpitations Physical Exam Vital Signs: Last Vital Signs Pulse 53 11/20/24 09:31 BP 100/52 L 11/20/24 09:31 BMI result Body Mass Index 43.0 Const General: cooperative, healthy appearing, comfortable and no acute distress Orientation/consciousness: patient oriented x3 Neck Neck: Yes normal visual inspection and Yes no JVD Resp Effort & Inspection: normal respiratory effort Auscultation: clear to auscultation bilaterally, no rales, no rhonchi and no wheezes Cardio Rate: regular rate Rhythm: regular rhythm Heart sounds: S1 normal heart sound present, S2 normal heart sound present, no murmurs and no rubs Neuro General: patient oriented x3 Extrem General: Yes normal to inspection and No no pedal edema Psych Appearance: grossly normal Mental Status: mental status grossly normal Speech and movement: Normal speech and movement present Office Procedures EKG Details: Today, read by me, sinus bradycardia, first-degree AV block, left axis deviation, left bundle branch block, rate 53, JT index 100.4 [id number], Complete Assessment & Plan Assessment & Plan (1) Chronic atrial fibrillation: Code(s): I48.20 - Chronic atrial fibrillation, unspecified Category: Medical Plan: Known history chronic atrial fibrillation. She has been on metoprolol XL 75 mg b.i.d. for heart rate control. She is on Xarelto 20 mg daily for an ticoagulation. Recent [facility] admission for heart failure and AFib RVR. She was put on amiodarone with plan for cardioversion however she did convert to sinus rhythm with medication only. EKG done today is showing sinus bradycardia, first-degree AV block, left bundle branch block, rate 53, JT index 100.4. At this time she is on amiodarone 200 mg daily, metoprolol 75 mg b.i.d. for rhythm and rate control. She is on Xarelto 20 mg daily for anticoagulation. Labs done 09/12/2024 showed creatinine 0.83. She did have issues with hematuria following bladder procedure last fall, none since that time. No med changes made at this time. If she does report fatigue or lightheadedness metoprolol dose can be reduced. (2) Diastolic dysfunction with chronic heart failure: Code(s): I50.32 - Chronic diastolic (congestive) heart failure Category: Medical Plan: [facility] admit in August with shortness of breath/ decompensated heart failure. Echocardiogram showed EF 30-35%, low normal RV systolic function, significantly elevated right atrial pressures, mild pulmonary hypertension. BNP was elevated at 568. She was treated with IV diuretics. On discharge she was sent home with Lasix 40 mg daily. She was put on Entresto, metoprolol, Aldactone for neurohormonal modulation. A nuclear stress test was done 10/18/2024 showing LAD territory ischemia, infarct pattern, based on reversible anterior wall findings, septal perfusion defect could be related to left bundle branch block. At this time she denies any chest discomfort at rest or with activity. She does have some shortness of breath with activity which is not new. Unknown if her cardiomyopathy is ischemic versus nonischemic. It could be tachycardia mediated or related to left bundle branch block. Ischemia has not been ruled out as a cause. ( prior known EF 10/10/2023 was 50-55%). She would benefit from cardiac catheterization for further evaluation. Details of the procedure and risks reviewed with her. She tells me she has had a cardiac catheterization many many years ago. She is agreeable to proceed. Will order left heart catheterization, question PCI. Will order preprocedure labs and add on TSH for amiodarone monitoring. Signs and symptoms of heart failure reviewed with her. Cardiology follow-up 2 weeks post cath. Note: She does tell me she is having a cystoscopy on 11/30/[address] Jackelyn Valadez. Will reach out to her to assess type of anesthesia and if anti coagulation will need to be held. (3) Chronic anticoagulation: Code(s): Z79.01 - intermediate (current) use of anticoagulants Category: Medical Plan: On Xarelto for anticoagulation. (4) Cardiomyopathy: Code(s): I42.9 - Cardiomyopathy, unspecified Category: Medical Plan: As above (5) Abnormal nuclear stress test: Code(s): R94.39 - Abnormal result of other cardiovascular function study Category: Medical Plan: As above (6) Hospital discharge follow-up: Code(s): Z09 - Encounter for follow-up examination after completed treatment for conditions other than malignant neoplasm Category: Medical Plan: As above. Plan Time spent on chart review, documentation, interview and assessment Orders: Orders Comprehensive Met. Panel Today R94.39 - Abnormal result of other cardiovascular function study Cardiac Cath LT Diagnostic 6 Weeks I42.9 - Cardiomyopathy, unspecified, R94.39 - Abnormal result of other cardiovascular function study Complete Blood Count Auto Diff Today R94.39 - Abnormal result of other cardiovascular function study Prothrombin Time INR Today R94.39 - Abnormal result of other cardiovascular function study TSH reflex Free T4 Today I48.21 - Permanent atrial fibrillation Medications: Changed From amiodarone amiodarone 400 mg po bid until 09/19/24 , then switch to amiodarone 200 mg daily 400 mg (2 x 200 mg) PO BID 90 tabs 0RF To amiodarone 200 mg PO DAILY 90 tabs 1RF Coding Level of Care Code Est Pt Level 4 (42567) Complex EM visit Add On G2211 Diagnoses Chronic atrial fibrillation I48.20 Diastolic dysfunction with chronic heart failure I50.32 Chronic anticoagulation Z79.01 Cardiomyopathy I42.9 Abnormal nuclear stress test R94.39 Hospital discharge follow-up Z09 CPT Codes EKG - CPT: [id number], Complete ([id number]) Time Spent (min) 36
== END 2024-11-20 10:19 | disposition home or self-care (01) ==
PROVIDERS: PCP Internal Medicine; Visit Provider Nurse Practitioner Family
DX: I48.20 Chronic atrial fibrillation, unspecified (principal); I50.32 Chronic diastolic (congestive) heart failure; Z79.01 Long term (current) use of anticoagulants; I42.9 Cardiomyopathy, unspecified; R94.39 Abnormal result of other cardiovascular function study; Z09 Encounter for follow-up examination after completed treatment for conditions other than malignant neoplasm
CPT/HCPCS: 93010; 99214; G2211

== ENCOUNTER → 2024-11-20 09:01 | Outpatient (BNVA) | payer MEDICARE, BC, SELFPAY | PROVIDERS: PCP Internal Medicine; Visit Provider Nurse Practitioner Family | DX: I48.20 Chronic atrial fibrillation, unspecified (principal); I11.0 Hypertensive heart disease with heart failure; I50.32 Chronic diastolic (congestive) heart failure; E66.01 Morbid (severe) obesity due to excess calories; I42.9 Cardiomyopathy, unspecified; R94.39 Abnormal result of other cardiovascular function study; Z09 Encounter for follow-up examination after completed treatment for conditions other than malignant neoplasm; Z79.01 Long term (current) use of anticoagulants; Z68.41 Body mass index [BMI] 40.0-44.9, adult | CPT/HCPCS: 93005; 99212 ==

== ENCOUNTER 2024-11-30 13:17 | Outpatient (AMB) | payer MEDICARE, BC, SELFPAY ==
--- NOTE | 2024-11-30 13:21 | A.OFFVIS_ITS ---
Intake Visit Reasons: cysto Intake Note: Patient is Present for Cystoscopy Urology Med: None Antibiotic Allergy: None Blood Thinner: Xarelto URO- G Disposable Cystoscope lot: [id number] exp:03/08/2027 Is/It Project Manager Required: No Patient Relations Specialist: Patient Relations Specialist Present Accompanied by: Spouse Allergies aspirin [ASA] Allergy (Intermediate, Verified 11/30/24 13:42) GI PAIN, upset stomach hazelnut Allergy (Unknown, Verified 11/30/24 13:42) Unknown shellfish derived Allergy (Unknown, Verified 11/30/24 13:42) Unknown divalproex sodium [From Depakote] Allergy (Verified 11/30/24 13:42) diarrhea, brain fog gluten Allergy (Verified 11/30/24 13:42) Unknown sesame seeds Allergy (Unknown, Uncoded 11/30/24 13:42) Unknown HPI Comments Details: 11/30/24--Here for surveillance office cystoscopy. Pt declined bladder instillations chemo or immunotherapy. Office cystoscopy - multifocal erythematous areas susp for CIS vs inflammatory changes. will send urine cytology. The patient has a cardiac condition and is on blood thinners. Consideration for cytoscopy fulgaration/biopsy vs conservative surveillance. Pt declines bladder instillation therapy at this time, she wants to wait until the urine cytology results. 10/19/2024--Bianca is a 69-year-old female status post TURBT 06/26/2024. PMH significant for?HTN, paroxysmal AFib on Xarelto, hypothyroidism, recurrent UTIs, IBS, celiac disease, bipolar disorder. The patient initially agreed to bladder installations. Telehealth call today with her daughter Fernanda who is her health proxy also on the phone Bianca states that she no longer wants bladder treatments. I reviewed the pathology report and emphasized the tumor was high-grade and invading into the lamina propria as well as other biopsies with carcinoma in Situ and the risk recurrence of the bladder cancer. I discussed bladder installations recommended including BCG immunotherapy and the chemo agent gemcitabine with docetaxol. The patient states she will get a second opinion, which I support as well. The patient expressed concerns regarding hematuria post initial TUR BT, as the patient was restarted on Xarelto as was recommended, I discussed Bianca there is a balance between risks and benefits when patients are on anti coagulation management. Reviewed labs and discussed with patient November labs note that her hemoglobin is back to baseline. Discussed surveillance cystoscopies and urine sent for cytology as part follow-up. 30 minutes spent in review of records pertaining to this visit and including voice discussion with the patient and documentation of this visit. 10/02/24--PET-CT negative for metastasis [facility] Medical History Non-insulin dependent type 2 diabetes mellitus Atrial flutter Bladder cancer Acute blood loss anemia Recurrent UTI Bilateral dacryocystitis Fall Frequency of urination Gait instability UTI (urinary tract infection) Pre-syncope Irritable bowel syndrome with diarrhea Chronic atrial fibrillation Paroxysmal atrial fibrillation C. difficile colitis Morbid obesity due to excess calories Weakness Leg edema Bipolar 1 disorder Vertigo PTSD (post-traumatic stress disorder) History of cardioversion Arthritis Hypothyroidism History of wheezing Diabetes mellitus HTN (hypertension) LBBB (left bundle branch block) PAF (paroxysmal atrial fibrillation) Surgical History History of cardiac radiofrequency ablation History of eye surgery Hx of section Hx of colonoscopy Hx of cholecystectomy Hx of arthroscopy of right knee Family History Father No problems noted. Mother No problems noted. Other Mental health disorder Substance use disorder Social History Household Members: Spouse Household Members Other:: daughter + Housing: Condominium Do you presently have visiting nurse or other home services: Yes Alcohol intake: former Comment: feels safe and has a lift at home Patient Tobacco Use Status: Former Tobacco user e-Cigarette/Vaping Use: Never Used Second Hand Smoke Exposure: No Advance Directives Date on File: 06/29/23 service: No Current occupational status: employed Sexual orientation: Straight/Heterosexual Cognitive needs: No Hearing needs: No Vision needs: Yes Review of Systems Const All systems reviewed & are unremarkable except as noted in HPI and below Reports no additional complaints Eyes Reports no additional complaints ENT Reports no additional complaints Card Reports no additional complaints Resp Reports no additional complaints GI Reports no additional complaints Reports as per HPI Musc Reports no additional complaints Skin/Breast Reports system reviewed and no additional complaints, except as documented Neuro Reports no additional complaints Psych Reports no additional complaints Endo Reports no additional complaints Serafin/Lymph Reports no additional complaints Aller/Immun Reports no additional complaints Office Procedures Cystoscopy Consent Discussed risk and benefit or proposed procedure with the patient. Information consent for procedure given to the patient. Discussed technical aspects, risks, benefits and alternatives in full. Addressed all of the patient's questions and concerns regarding the procedure. The patient demonstrated knowledge and understanding. They wish to proceed with this procedure. Preparation The patient was prepped in the usual manner. A life enrichment manager was present and in the room. Genitalia was prepped with betadine solution in a sterile manner. Lidocaine Jelly 2% was placed into the urethra and 16Fr flexible Olympus cystoscope was inserted into the meatus after adequate lubrication. Procedure Time out per protocol performed. Bladder Inspection Bladder Inspection: The bladder was inspected in its entirety with utilization retroflexion displaying: Tumor(s): multifocal erythematous areas susp for CIS vs inflammatory changes Trabeculation: NA Mucosal Erthema: moderate Orifices: normal shape and position Urethra: normal [id number] DISPOSABLE SCOPE URO-G FLEXIBLE SCOPE Procedure code (CPT) selection complete Office Meds lidocaine HCl 2 % mucosal jelly in applicator Performing Provider: Mariano Sanchez MD [place] [facility] [place] [facility] Administered by: Arnel Ro LPN on 11/30/24 13:50 Dose Route Admin Location Dispensed Lot Number Expiration Date [facility] Adjunct Lecturer 10 mL intra-urethral 10 mL ciprofloxacin HCl 500 mg tablet Performing Provider: Mariano Sanchez MD Performing Location[place] [facility] [place] [facility] Administered by: Arnel Ro LPN on 11/30/24 13:50 Dose Route Admin Location Dispensed Lot Number Expiration Date [place] Adjunct Lecturer 500 mg PO 1 tab Results AMB Urinalysis, Automated UA Leukoctes 0 Quiana/uL Last Edit by SUNITHA Gutierres on 11/30/24 13:55 UA Nitrite Negative Last Edit by SUNITHA Gutierres on 11/30/24 13:55 UA Urobilinogen 0.2 mg/dL Last Edit by SUNITHA Gutierres on 11/30/24 13:5 5 UA Protein 0 mg/dL Last Edit by SUNITHA Gutierres on 11/30/24 13:55 UA pH 6.0 Last Edit by SUNITHA Gutierres on 11/30/24 13:55 UA Blood 80 Kayode/uL Last Edit by Nidhi Butt RMA on 11/30/24 13:55 UA Specific [place] 1.010 Last Edit by iNdhi Butt, RMA on 11/30/24 13: 55 UA Ketone Negative Last Edit by Nidhi Butt, RMA on 11/30/24 13:55 UA Bilirubin 0 mg/dL Last Edit by Nidhi Butt, RMA on 11/30/24 13:55 UA Glucose 0 mg/dL Last Edit by Nidhi Butt, A on 11/30/24 13:55 Results Reviewed Results Reviewed: Laboratory Last Values Urine pH (Auto) 6.0 11/30/24 13:43 Specific [place] (Auto) 1.010 11/30/24 13:43 Urine Protein (Auto) 0 mg/dL 11/30/24 13:43 Glucose (UA)(Auto) 0 mg/dL 11/30/24 13:43 Urine Ketones (Auto) Negative 11/30/24 13:43 Urine Blood (Auto) 80 Kayode/uL 11/30/24 13:43 Urine Nitrite (Auto) Negative 11/30/24 13:43 Urine Bilirubin (Auto) 0 mg/dL 11/30/24 13:43 Urine Urobilinogen (Auto) 0.2 mg/dL 11/30/24 13:43 Leukocyte Esterase (Auto) 0 Quiana/uL 11/30/24 13:43 Date of Service: 10/02/24 EXAMINATION: Fluorine-18 FDG PET/CT Scan CLINICAL INDICATION: Initial treatment management. Bilateral cancer, staging PROCEDURE: 64 minutes following the intravenous administration of 20.9 mCi of fluorine 18 FDG, images from the base of the skull to the mid thighs were obtained using a combined PET/CT scanner with CT scan based attenuation correction. No oral contrast was administered. No intravenous contrast was administered. Transverse, coronal, sagittal, and volume reconstruction projections were obtained. The patient's blood glucose as determined by a finger stick, was 185 mg/dl immediately prior to injection. Total CT exam dose-length product 1279.42 mGy-cm * These CT images were obtained using dose optimization techniques as appropriate, variously including the following: Automated exposure control * Adjustment of mA and/or kV according to patient size (this includes techniques or standardized protocols for targeted exams where dose is matched to indication/reason for exam; i.e. extremities or head) * Use of iterative reconstruction technique COMPARISON: No previous PET CT scan is available for comparison. The diagnostic CT scan of the abdomen and pelvis, dated 09/29/2023, is available for comparison. FINDINGS: NECK AND VISUALIZED HEAD: No foci of abnormal FDG activity are noted. The distribution of FDG activity is physiological. There is no cervical lymphadenopathy. THORAX: There are no foci of abnormal FDG activity in the chest. There is a small focus of scarring or atelectasis anterolaterally in the inferior lingular segment with no associated abnormal FDG activity. No suspicious pulmonary nodules are visualized. There is no pleural or pericardial fluid, or pneumothorax. There is no mediastinal, supraclavicular, or axillary lymphadenopathy. ABDOMEN AND PELVIS: There are no foci of abnormal FDG activity in the abdomen or pelvis. There is mild FDG activity throughout the gastrointestinal tract without a suspicious focal component. There is diverticulosis without evidence of diverticulitis. The hollow viscera are otherwise unremarkable. The liver and spleen are unremarkable. The gallbladder has been resected and there are metallic surgical clips in the gallbladder bed. The kidneys, adrenal glands and pancreas are unremarkable. An enhancing nodular focus in the posterolateral aspect of the urinary bladder wall visualized on the 09/29/[address] scan is not apparent on the current study, performed without intravenous contrast. The bladder now appears unremarkable. The remainder the pelvic organs are also unremarkable. There is no retroperitoneal, mesenteric, pelvic or inguinal lymphadenopathy. MUSCULOSKELETAL: There are no foci of abnormal FDG activity in the osseous structures. There is a mild thoracolumbar scoliosis with lumbar convexity to the left. There are degenerative changes in the spine, but no suspicious sclerotic or lytic lesions are visualized. VASCULAR: Diffuse vascular calcifications including coronary are noted. IMPRESSION: 1. No abnormalities suspicious for metastatic or other malignant lesions are noted. 2. An enhancing nodular opacity in the right posterolateral bladder wall visualized on the 09/29/[address] scan is not visualized on these nondiagnostic CT images. 3. Vascular calcifications including coronary. Collected: 06/26/24 Location: [facility] Received: 06/26/24 Diagnosis A. Bladder, posterior wall, transurethral resection: Carcinoma in-situ. B. Bladder, random left lateral wall, biopsy: Chronic cystitis. C. Bladder, erythematous flat lesion right lateral wall, transurethral resection: Carcinoma in-situ. D. Bladder, Transurethral resection: - High-grade urothelial carcinoma, invasive into lamina propria. - Muscularis propria present. Bladder, transurethral resection/biopsy Procedure: Transurethral resection; multiple biopsies Tumor site: Not specified Histologic type: Urothelial carcinoma (CIS in two other biopsies) Histologic grade: High grade Muscularis propria: Present Extent of invasion: Lamina propria Lymphovascular invasion: Not identified Clinical History Bladder tumor Date of Service: 09/29/23 EXAMINATION: CT ABDOMEN AND PELVIS WITH CONTRAST CLINICAL INFORMATION: Abdominal pain, sepsis COMPARISON: CT abdomen and pelvis 09/03/2023 TECHNIQUE: Multidetector volumetric images were obtained from the superior aspect of the liver through the pubic symphysis following administration 85 mL of Omnipaque 350 intravenous contrast. Sagittal and coronal reformatted images were obtained on the technologist's workstation. Oral contrast: No This CT examination was performed using dose optimization techniques as appropriate, variously including the following: *Automated exposure control *Adjustment of mA and/or kV according to patient size (this includes techniques or standardized protocols for targeted exams where dose is matched to indication/reason for exam; i.e. extremities or head) *Use of iterative reconstruction technique DLP: 1693 mGy-cm FINDINGS: There is motion artifact throughout the exam limiting evaluation. LUNG BASES: The visualized lung bases are unremarkable. LIVER, GALLBLADDER, AND BILIARY TREE: The liver is normal in size, shape, with a low-attenuation area in the left hepatic and right hepatic lobe on axial slice 18/3 no focal hepatic lesion or biliary ductal dilatation is present. There are surgical dayday in the right upper quadrant from previous cholecystectomy. PANCREAS: Unremarkable. SPLEEN: Unremarkable. ADRENAL GLANDS: Unremarkable. KIDNEYS AND URETERS: The kidneys are normal in size, shape, and attenuation. No hydronephrosis, hydroureter, or calculi seen. No perinephric stranding. BLADDER: There is mild bladder wall thickening with enhancing 1.2 cm nodule along the right posterior bladder wall and moderate bladder wall thickening along the base. No radiopaque calculi seen. GASTROINTESTINAL TRACT: There is scattered stool and gas seen throughout the colon without distention. The small bowel loops are normal caliber. Appendix is not seen. ABDOMINAL WALL: No significant hernia is appreciated. LYMPH NODES: Normal. VASCULAR: Unremarkable. PELVIC VISCERA: Unremarkable. OSSEOUS STRUCTURES: Mild degenerative disc changes with vacuum disc phenomena at L1-L2, L3-L4 disc levels. No aggressive lytic or sclerotic process. There is mild ventral spondylosis mid lumbar spine. IMPRESSION: 1. No acute intra-abdominal process seen. 2. Mild bladder wall thickening with enhancing nodule along the right posterior bladder wall and moderate bladder wall thickening along the base. No change from the last exam. Recommend cystoscopy. 3. Low-attenuation area in the left and right hepatic lobe are stable. 4. Mild constipation. 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 will send urine cytology. The patient has a cardiac condition and is on blood thinners. Consideration for cytoscopy fulgaration/biopsy vs conservative surveillance. Pt declines bladder instillation therapy at this time, she wants to wait until the urine cytology results. Orders: Orders AMB Cystoscopy Today C67.9 - Malignant neoplasm of bladder, unspecified AMB Urinalysis Automated Today Z13.9 - Encounter for screening, unspecified Patient Instructions: The patient had an opportunity to ask questions regarding treatment plan. The patient expressed understanding and agreement with the above treatment plan. The patient is aware they should contact our office by phone for worsening of their current condition or the appearance of new symptoms. Compliance is encouraged with any medications and followup testing that is ordered. It is a privilege to be allowed the opportunity to participate in the urologic care of your patient. If you have any questions or concerns regarding treatment for the above conditions please do not hesitate to contact me. The office telephone contact is [phone]. This note is constructed in part using voice recognition software. While every effort has been made to ensure accuracy process equipment operator errors may have been included. Yours sincerely, Mariano Sanchez MD Coding Level of Care Code Est Pt Level 3 (36340) Diagnoses Malignant neoplasm of urinary bladder, unspecified site C67.9 Bladder location: unspecified site Chronic anticoagulation Z79.01 CIS (carcinoma in situ of bladder) D09.0 CPT Codes Cystoscopy - CPT: 51639-[id number] ([id number])
--- OUTSIDE RECORDS SUMMARY | 2024-11-30 13:34 | XMS_ITS ---
Author Organization [facility] Address Unknown Allergies, Adverse Reactions, Alerts Substance Reaction Status Noted Date Resolved Date Shrimp Cutaneous reactions active 07/02/2023 Sesame Seed Nausea active 07/02/2023 Chantell Nut Nausea active 07/02/2023 Gluten Nausea active 07/02/2023 Aspirin Cutaneous reactions active 07/02/2023 Problems Problem Status Start Date End Date OTHER LACK OF COORDINATION (Primary) (R27.8 - ICD-10-C M) ACTIVE 07/02/2023 UNSPECIFIED FALL, SUBSEQUENT ENCOUNTER (W19.XXXD - ICD-10-CM) ACTIVE 07/02/2023 TYPE 2 DIABETES MELLITUS WIT HOUT COMPLICATIONS (E11.9 - ICD-10-CM) ACTIVE 07/02/2023 BIPOLAR DISORDER, UNSPECIFIED (F31.9 - ICD-10-CM) ACTI VE 07/02/2023 HYPOTHYROIDISM, UNSPECIFIED (E03.9 - ICD-10-CM) ACTIVE 07/02/2023 CHRONIC ATRIAL FIBRILLATION, UNSPECIFIED (I48.20 - ICD-10-CM) ACTIVE 07/02/2023 LEFT BUNDLE-BRANCH BLOCK, UNSPECIFIED (I44.7 - ICD-10- CM) ACTIVE 07/02/2023 ESSENTIAL (PRIMARY) HYPERTENSION (I10 - ICD-10-CM) ACT WILLA 07/02/2023 Encounters Encounter Performer Performer Role Encounter Diagnoses Location Date Discharge - Discharged to home or self care - [facility] - Private home/apt. with home health services [facility] 3 11:16 am EDT - 3 11:40 am EDT Social History
== END 2024-11-30 14:35 | disposition home or self-care (01) ==
PROVIDERS: PCP Internal Medicine; Visit Provider Urology
DX: C67.9 Malignant neoplasm of bladder, unspecified (principal); Z79.01 Long term (current) use of anticoagulants; D09.0 Carcinoma in situ of bladder; Z13.9 Encounter for screening, unspecified
CPT/HCPCS: 52000

== ENCOUNTER 2024-11-30 13:17 | Outpatient (REF) | payer MEDICARE, BC, SELFPAY ==
[2024-11-30 16:26] LABS: Urine Cytology See Pathology rpt
== END 2024-11-30 13:18 | disposition home or self-care (01) ==
LOC: HO.LAB 13:17
PROVIDERS: PCP Internal Medicine; Visit Provider Urology
DX: C67.9 Malignant neoplasm of bladder, unspecified (principal)
CPT/HCPCS: 52000; 81003; 88112

== ENCOUNTER 2024-12-21 14:34 | Outpatient (REF) | payer MEDICARE, BC, SELFPAY ==
--- OUTSIDE RECORDS SUMMARY | 2024-12-21 14:56 | XMS_ITS | Patient Health Record ---
Author Organization [facility] Address [address] [place] [address] Care Team Providers Care Supervisor Industrial Garment Name Role Phone Matt MENDOZA, Asma Primary Care Provider Danny Uribe Jr Unavailable REASON FOR REFERRAL No Information SOCIAL HISTORY Sex Assigned At : Social History Observation Description Sex Assigned At Unknown PLAN OF TREATMENT No Information Insurance Providers Payer Name Payer Address Payer Phone Subscriber Number Group Number Insured Name Patient Relationship to Insured Coverage Start Date Coverage End Date MEDICARE OF [place] [address] [place] [address] [id number] MATT HUIZAR Self - patient is the insured [facility] [address] [place] [address] [phone] [id number] MATT HUIZAR Self - patient is the insured
[2024-12-21 15:02] LABS: MANUAL DIFF FLAG NO
[2024-12-21 16:06] LABS: Basophils Absolute Auto 0.1 X10*3/uL (0.0-0.2); Eosinophils Absolute Auto 0.2 X10*3/uL (0.0-0.4); Eosinophils Percent Auto 2.5 % (0-4); Hematocrit 32.6 % (37.0-47.0); Hemoglobin 11.1 g/dl (12.0-16.0); Imm Gran Abs Auto 0.02 X10*3/uL (0.00-0.03); Imm Gran Pct Auto 0.3 % (0.0-0.4); Lymphocytes Absolute Auto 2.1 X10*3/uL (1.2-4.9); Lymphocytes Percent Auto 34.9 % (20-40); Mean Corpuscular Hemoglobin 30.9 pg (27.0-33.0); Mean Corpuscular Volume 90.8 fL (80.0-98.0); Mean Platelet Volume 9.4 fL (9.4-12.3); Monocytes Absolute Auto 0.3 X10*3/uL (0.1-1.2); Monocytes Percent Auto 5.6 % (2-11); Neutrophils Absolute Auto 3.3 x10*3/uL (2.0-8.3); Neutrophils Percent Auto 55.7 % (45-73); Platelet Count 232 X10*3/uL (160-400); Red Blood Count 3.59 X10*6/uL (4.20-5.50); White Blood Count 5.9 X10*3/uL (4.8-10.8)
[2024-12-21 16:10] LABS: Estimated Average Glucose 154 mg/dL; Hemoglobin A1C 156.9645 umol/L; Total Hemoglobin (HGBA1C) 2988.2507 umol/L
[2024-12-21 16:42] LABS: Alanine Aminotransferase 17 U/L (0-31); Albumin Level 3.5 g/dL (3.5-5.0); Alkaline Phosphatase 74 U/L (39-117); Anion Gap 13 (12-20); Aspartate Amino Transferase 19 U/L (5-31); Bilirubin Total 0.4 mg/dL (0.0-1.0); Blood Urea Nitrogen 15 mg/dL (9-16); Calcium 8.7 mg/dL (8.4-10.2); Carbon Dioxide 22 mmol/L (22-29); Chloride 106 mmol/L (96-108); Estimated Glomerular Filt Rate > 60; Glucose Random 190 mg/dL (60-115); Potassium 4.1 mmol/L (3.3-5.1); Sodium 137 mmol/L (135-145); Total Protein 6.9 g/dL (6.5-8.0)
[2024-12-21 17:01] LABS: TSH reflex Free T4 0.67 uIU/mL (0.32-4.0)
[2024-12-22 13:23] LABS: LDL Cholesterol Direct 85 mg/dL (<100)
== END 2024-12-21 14:35 | disposition home or self-care (01) ==
LOC: HO.LAB 14:34
PROVIDERS: PCP Internal Medicine; Visit Provider Internal Medicine
DX: C67.9 Malignant neoplasm of bladder, unspecified (principal); I10 Essential (primary) hypertension; E03.8 Other specified hypothyroidism; I50.32 Chronic diastolic (congestive) heart failure; I48.20 Chronic atrial fibrillation, unspecified; E11.9 Type 2 diabetes mellitus without complications
CPT/HCPCS: 36415; 80053; 83036; 83721; 84443; 85025

== ENCOUNTER 2024-12-21 16:36 | Outpatient (AMB) | payer MEDICARE, BC, SELFPAY ==
--- NOTE | 2024-12-21 16:36 | MHC.OFFVIS ---
Intake Visit Reasons: Follow up Intake Note: Pt presents to the office as a telehealth visit for a follow up discuss cytology results. Allergies aspirin [ASA] Allergy (Intermediate, Verified 12/21/24 16:36) GI PAIN, upset stomach hazelnut Allergy (Unknown, Verified 12/21/24 16:36) Unknown shellfish derived Allergy (Unknown, Verified 12/21/24 16:36) Unknown divalproex sodium [From Depakote] Allergy (Verified 12/21/24 16:36) diarrhea, brain fog gluten Allergy (Verified 12/21/24 16:36) Unknown sesame seeds Allergy (Unknown, Uncoded 12/21/24 16:36) Unknown HPI Comments Details: 12/21/24--FU Telehealth to discuss urine cytology results. PMH - PTSD, bipolar, CAD, Discussed urine cytology 11/30/24- suspicious for high grade urothelial carcinoma. Discussed results c/w persistent CIS present. Pt had refused bladder instillations. She states she is scheduled for cardiac cath in the next few weeks, she is currently not cleared for anesthesia. I recommended as she refused and did not received course of intravesical bladder instillations that she should undergo the bladder instillation therapy. 11/30/24--Here for surveillance office cystoscopy. Pt declined bladder instillations chemo or immunotherapy. Office cystoscopy - multifocal erythematous areas susp for CIS vs inflammatory changes. will send urine cytology. The patient has a cardiac condition and is on blood thinners. Consideration for cytoscopy fulgaration/biopsy vs conservative surveillance. Pt declines bladder instillation therapy at this time, she wants to wait until the urine cytology results. 10/19/2024--Bianca is a 69-year-old female status post TURBT 06/26/2024. PMH significant for?HTN, paroxysmal AFib on Xarelto, hypothyroidism, recurrent UTIs, IBS, celiac disease, bipolar disorder. The patient initially agreed to bladder installations. Telehealth call today with her daughter Fernanda who is her health proxy also on the phone Bianca states that she no longer wants bladder treatments. I reviewed the pathology report and emphasized the tumor was high-grade and invading into the lamina propria as well as other biopsies with carcinoma in Situ and the risk recurrence of the bladder cancer. I discussed bladder installations recommended including BCG immunotherapy and the chemo agent gemcitabine with docetaxol. The patient states she will get a second opinion, which I support as well. The patient expressed concerns regarding hematuria post initial TUR BT, as the patient was restarted on Xarelto as was recommended, I discussed Bianca there is a balance between risks and benefits when patients are on anti coagulation management. Reviewed labs and discussed with patient November labs note that her hemoglobin is back to baseline. Discussed surveillance cystoscopies and urine sent for cytology as part follow-up. 30 minutes spent in review of records pertaining to this visit and including voice discussion with the patient and documentation of this visit. 10/02/24--PET-CT negative for metastasis [facility] Medical History Non-insulin dependent type 2 diabetes mellitus Atrial flutter Bladder cancer Acute blood loss anemia Recurrent UTI Bilateral dacryocystitis Fall Frequency of urination Gait instability UTI (urinary tract infection) Pre-syncope Irritable bowel syndrome with diarrhea Chronic atrial fibrillation Paroxysmal atrial fibrillation C. difficile colitis Morbid obesity due to excess calories Weakness Leg edema Bipolar 1 disorder Vertigo PTSD (post-traumatic stress disorder) History of cardioversion Arthritis Hypothyroidism History of wheezing Diabetes mellitus HTN (hypertension) LBBB (left bundle branch block) PAF (paroxysmal atrial fibrillation) Surgical History History of cardiac radiofrequency ablation History of eye surgery Hx of section Hx of colonoscopy Hx of cholecystectomy Hx of arthroscopy of right knee Family History Father No problems noted. Mother No problems noted. Other Mental health disorder Substance use disorder Social History Household Members: Spouse Household Members Other:: daughter + Housing: Condominium Do you presently have visiting nurse or other home services: Yes Alcohol intake: former Comment: feels safe and has a lift at home Patient Tobacco Use Status: Former Tobacco user e-Cigarette/Vaping Use: Never Used Second Hand Smoke Exposure: No Advance Directives Date on File: 06/29/23 service: No Current occupational status: employed Sexual orientation: Straight/Heterosexual Cognitive needs: No Hearing needs: No Vision needs: Yes Telehealth Telehealth Telehealth Platform: Telephone Location of provider rendering services: practice address Location of patient: address on file Patient Identification confirmed using: Name, : Yes Telehealth method: voice only Patient verbally consented to treatment: Yes Patient verbally consented to billing insurance company: Yes Patient informed of any privacy concerns related to visit: Yes Minutes spent on Phone/Video with Pt.: 18 Results Reviewed Results Reviewed: Collected: 11/30/24 Location: .[facility] Received: 12/03/24 Diagnosis Urine: Suspicious for high-grade urothelial carcinoma. COMMENT: Examination of a monolayer preparation slide shows scattered benign urothelial cells, scattered benign squamous cells, and occasional atypical hyperchromatic and irregular urothelial cells (singly and in groups) with moderate to high increased nuclear:cytoplasmic ratios. There are also scattered acute inflammatory cells and occasional red blood cells present. Clinical History Malignant neoplasm of bladder, unspecified Material Received Urine Gross Description Received is 72 cc of clear yellow fluid from which a ThinPrep slide is prepared. Date of Service: 10/02/24 EXAMINATION: Fluorine-18 FDG PET/CT Scan CLINICAL INDICATION: Initial treatment management. Bilateral cancer, staging PROCEDURE: 64 minutes following the intravenous administration of 20.9 mCi of fluorine 18 FDG, images from the base of the skull to the mid thighs were obtained using a combined PET/CT scanner with CT scan based attenuation correction. No oral contrast was administered. No intravenous contrast was administered. Transverse, coronal, sagittal, and volume reconstruction projections were obtained. The patient's blood glucose as determined by a finger stick, was 185 mg/dl immediately prior to injection. Total CT exam dose-length product 1279.42 mGy-cm * These CT images were obtained using dose optimization techniques as appropriate, variously including the following: Automated exposure control * Adjustment of mA and/or kV according to patient size (this includes techniques or standardized protocols for targeted exams where dose is matched to indication/reason for exam; i.e. extremities or head) * Use of iterative reconstruction technique COMPARISON: No previous PET CT scan is available for comparison. The diagnostic CT scan of the abdomen and pelvis, dated 09/29/2023, is available for comparison. FINDINGS: NECK AND VISUALIZED HEAD: No foci of abnormal FDG activity are noted. The distribution of FDG activity is physiological. There is no cervical lymphadenopathy. THORAX: There are no foci of abnormal FDG activity in the chest. There is a small focus of scarring or atelectasis anterolaterally in the inferior lingular segment with no associated abnormal FDG activity. No suspicious pulmonary nodules are visualized. There is no pleural or pericardial fluid, or pneumothorax. There is no mediastinal, supraclavicular, or axillary lymphadenopathy. ABDOMEN AND PELVIS: There are no foci of abnormal FDG activity in the abdomen or pelvis. There is mild FDG activity throughout the gastrointestinal tract without a suspicious focal component. There is diverticulosis without evidence of diverticulitis. The hollow viscera are otherwise unremarkable. The liver and spleen are unremarkable. The gallbladder has been resected and there are metallic surgical clips in the gallbladder bed. The kidneys, adrenal glands and pancreas are unremarkable. An enhancing nodular focus in the posterolateral aspect of the urinary bladder wall visualized on the 09/29/[address] scan is not apparent on the current study, performed without intravenous contrast. The bladder now appears unremarkable. The remainder the pelvic organs are also unremarkable. There is no retroperitoneal, mesenteric, pelvic or inguinal lymphadenopathy. MUSCULOSKELETAL: There are no foci of abnormal FDG activity in the osseous structures. There is a mild thoracolumbar scoliosis with lumbar convexity to the left. There are degenerative changes in the spine, but no suspicious sclerotic or lytic lesions are visualized. VASCULAR: Diffuse vascular calcifications including coronary are noted. IMPRESSION: 1. No abnormalities suspicious for metastatic or other malignant lesions are noted. 2. An enhancing nodular opacity in the right posterolateral bladder wall visualized on the 09/29/[address] scan is not visualized on these nondiagnostic CT images. 3. Vascular calcifications including coronary. Collected: 06/26/24 Location: [facility] Received: 06/26/24 Diagnosis A. Bladder, posterior wall, transurethral resection: Carcinoma in-situ. B. Bladder, random left lateral wall, biopsy: Chronic cystitis. C. Bladder, erythematous flat lesion right lateral wall, transurethral resection: Carcinoma in-situ. D. Bladder, Transurethral resection: - High-grade urothelial carcinoma, invasive into lamina propria. - Muscularis propria present. Bladder, transurethral resection/biopsy Procedure: Transurethral resection; multiple biopsies Tumor site: Not specified Histologic type: Urothelial carcinoma (CIS in two other biopsies) Histologic grade: High grade Muscularis propria: Present Extent of invasion: Lamina propria Lymphovascular invasion: Not identified Clinical History Bladder tumor Date of Service: 09/29/23 EXAMINATION: CT ABDOMEN AND PELVIS WITH CONTRAST CLINICAL INFORMATION: Abdominal pain, sepsis COMPARISON: CT abdomen and pelvis 09/03/2023 TECHNIQUE: Multidetector volumetric images were obtained from the superior aspect of the liver through the pubic symphysis following administration 85 mL of Omnipaque 350 intravenous contrast. Sagittal and coronal reformatted images were obtained on the technologist's workstation. Oral contrast: No This CT examination was performed using dose optimization techniques as appropriate, variously including the following: *Automated exposure control *Adjustment of mA and/or kV according to patient size (this includes techniques or standardized protocols for targeted exams where dose is matched to indication/reason for exam; i.e. extremities or head) *Use of iterative reconstruction technique DLP: 1693 mGy-cm FINDINGS: There is motion artifact throughout the exam limiting evaluation. LUNG BASES: The visualized lung bases are unremarkable. LIVER, GALLBLADDER, AND BILIARY TREE: The liver is normal in size, shape, with a low-attenuation area in the left hepatic and right hepatic lobe on axial slice 18/3 no focal hepatic lesion or biliary ductal dilatation is present. There are surgical dayday in the right upper quadrant from previous cholecystectomy. PANCREAS: Unremarkable. SPLEEN: Unremarkable. ADRENAL GLANDS: Unremarkable. KIDNEYS AND URETERS: The kidneys are normal in size, shape, and attenuation. No hydronephrosis, hydroureter, or calculi seen. No perinephric stranding. BLADDER: There is mild bladder wall thickening with enhancing 1.2 cm nodule along the right posterior bladder wall and moderate bladder wall thickening along the base. No radiopaque calculi seen. GASTROINTESTINAL TRACT: There is scattered stool and gas seen throughout the colon without distention. The small bowel loops are normal caliber. Appendix is not seen. ABDOMINAL WALL: No significant hernia is appreciated. LYMPH NODES: Normal. VASCULAR: Unremarkable. PELVIC VISCERA: Unremarkable. OSSEOUS STRUCTURES: Mild degenerative disc changes with vacuum disc phenomena at L1-L2, L3-L4 disc levels. No aggressive lytic or sclerotic process. There is mild ventral spondylosis mid lumbar spine. IMPRESSION: 1. No acute intra-abdominal process seen. 2. Mild bladder wall thickening with enhancing nodule along the right posterior bladder wall and moderate bladder wall thickening along the base. No change from the last exam. Recommend cystoscopy. 3. Low-attenuation area in the left and right hepatic lobe are stable. 4. Mild constipation. Assessment & Plan Assessment & Plan (1) Bladder cancer: Code(s): C67.9 - Malignant neoplasm of bladder, unspecified Category: Medical Qualifiers: Bladder location: unspecified site Qualified Code(s): C67.9 - Malignant neoplasm of bladder, unspecified (2) Chronic anticoagulation: Code(s): Z79.01 - manager terminal (current) use of anticoagulants Category: Medical (3) CIS (carcinoma in situ of bladder): Code(s): D09.0 - Carcinoma in situ of bladder Category: Medical Plan Pt will call next week regarding decision to proceed with intravesical bladder instillations. Patient Instructions: The patient had an opportunity to ask questions regarding treatment plan. The patient expressed understanding and agreement with the above treatment plan. The patient is aware they should contact our office by phone for worsening of their current condition or the appearance of new symptoms. Compliance is encouraged with any medications and followup testing that is ordered. It is a privilege to be allowed the opportunity to participate in the urologic care of your patient. If you have any questions or concerns regarding treatment for the above conditions please do not hesitate to contact me. The office telephone contact is [phone]. This note is constructed in part using voice recognition software. While every effort has been made to ensure accuracy bathroom tiling professional errors may have been included. Yours sincerely, Mariano Sanchez MD Coding Level of Care Code Tele Est Pt Level 4 (29287) Complex EM visit Add On G2211 Diagnoses Malignant neoplasm of urinary bladder, unspecified site C67.9 Bladder location: unspecified site Chronic anticoagulation Z79.01 CIS (carcinoma in situ of bladder) D09.0
== END 2024-12-24 07:57 | disposition home or self-care (01) ==
LOC: HO.HUSH 16:36
PROVIDERS: PCP Internal Medicine; Visit Provider Urology
DX: C67.9 Malignant neoplasm of bladder, unspecified (principal); D09.0 Carcinoma in situ of bladder; Z79.01 Long term (current) use of anticoagulants
CPT/HCPCS: 99214; G2211

== ENCOUNTER → 2025-01-01 23:59 | Outpatient (BNV) | payer MEDICARE, BC, SELFPAY | PROVIDERS: PCP Internal Medicine; Visit Provider Internal Medicine Cardiovascular Disease | DX: I50.20 Unspecified systolic (congestive) heart failure (principal) | CPT/HCPCS: 93458; 99152 ==

== ENCOUNTER 2025-01-10 08:03 | Outpatient (AMB) | payer MEDICARE, BC, SELFPAY ==
--- OUTSIDE RECORDS SUMMARY | 2025-01-10 08:08 | XMS_ITS ---
Author Organization [facility] Care Team Providers Care Wood Scaler Name Role Phone Wil Mayfield Unavailable Unavailable Shefali Valente Unavailable Unavailable Emely Mcclendon Unavailable Unavailable Allergies and adverse reactions Code CodeSystem Substance Reaction Severity StartDate Concern Status Shrimp Skin reaction - finding (code- 168092315, SNOMED CT) Moderate 07/02/2023 active Sesame Seed Nausea (code- 090997363, SNOMED CT) Moderate 07/02/2023 active Chantell Nut Nausea (code- 763570962, SNOMED CT) Moderate 07/02/2023 active Gluten Nausea (code- 314490034, SNOMED CT) Moderate 07/02/2023 active 1191 RXNORM Aspirin Skin reaction - finding (code- 397556353, SNOMED CT) Moderate 07/02/2023 active Care Team Name Role Address Phone Organization María Mayfield PCP [address] [address], [place], [address], [place] (Office): : [facility] 07/02/2023 - 08/12/2023 Shefali Valente Attending Physician [address], [place], [address], [place] (Office): : [facility] 07/02/2023 - 08/12/2023 Emely Mcclendon Attending Physician [address] [facility] [address], [place], [address], [facility] (Office): [facility] 07/02/2023 - 08/12/2023 Mental Status Section Date Assessment Total Score Description 08/12/2023 BIMS 14 cognitively int act CAM 0 No delirium ind icated 07/08/2023 BIMS 14 cognitively int act CAM 0 No delirium ind icated PHQ-9 03 minimal depress ion Problems Problem # Description Date of onset Resolved Date Code CodeSystem Concern Status 1 BIPOLAR DISORDER, UNSPECIFIED 07/02/[address] active 2 CHRONIC ATRIAL FIBRILLATION, UNSPECIFIED 07/02/[address] active 3 ESSENTIAL (PRIMARY) HYPERTENSION 07/02/[address] active 4 HYPOTHYROIDISM, UNSPECIFIED 07/02/[address] active 5 LEFT BUNDLE-BRANCH BLOCK, UNSPECIFIED 07/02/[address] active 6 OTHER LACK OF COORDINATION 07/02/[address] active 7 TYPE 2 DIABETES MELLITUS WITHOUT COMPLICATIONS 07/02/[address] active 8 UNSPECIFIED FALL, SUBSEQUENT ENCOUNTER 07/02/[address] active Reason for Referral No Reasons for Referral Entered Social History Social History Observation Description Start Date End Date Code Code System Current Smoking Status Tobacco smoking consumption unknown 902705313 SNOMED CT Sex Assigned At Female 1955 22874-8 [facility] Vital Signs Code Code System Vitals Name Values and Units Timing Information 81174-6 LOINC Pain Level Value=0.0 08/12/2023 9279-1 LOINC Respiratory Rate Value=16.0 Units=/m in 08/11/2023 8462-4 LOINC Blood Pressure-Diastolic Value=70 Un its=mmHg 08/11/2023 8480-6 LOINC Blood Pressure-Systolic Wurjc=698 Un its=mmHg 08/11/2023 8310-5 LOINC Body Temperature Value=98.1 Units=?? F 08/11/2023 8867-4 [facility] Heart rate Value=76.0 Units=/min 09/2023 09468-0 [facility] O2 % BldC Oximetry Value=94.0 Units= % 08/11/2023 99494-1 [facility] Weight Empqi=850.4 Units=Lbs 03/2023 8302-2 [facility] Height Value=62.0 Units=Inches 07/02/2023
--- OUTSIDE RECORDS SUMMARY | 2025-01-10 08:08 | XMS_ITS | Patient Health Record ---
Author Organization [facility] Address [address] [place] [address] Care Team Providers Care Footwear Sales Representative Name Role Phone Matt MENDOZA, Asma Primary Care Provider Danny Uribe Jr Unavailable [phone] Reason For Referral No Information Plan Of Treatment No Information Insurance Providers Payer Name Payer Address Payer Phone Subscriber Number Group Number Insured Name Patient Relationship to Insured Coverage Start Date Coverage End Date MEDICARE OF [place] [address] [place] [address] [phone] [id number] MATT HUIZAR Self - patient is the insured [facility] [address] [place] [address] [id number] MATT HUIZAR Self - patient is the insured
--- NOTE | 2025-01-10 08:42 | A.OFFPC_ITS ---
Intake Visit Reasons: F/U labs and diabetes Allergies aspirin [ASA] Allergy (Intermediate, Verified 01/10/25 08:42) GI PAIN, upset stomach hazelnut Allergy (Unknown, Verified 01/10/25 08:42) Unknown shellfish derived Allergy (Unknown, Verified 01/10/25 08:42) Unknown divalproex sodium [From Depakote] Allergy (Verified 01/10/25 08:42) diarrhea, brain fog gluten Allergy (Verified 01/10/25 08:42) Unknown sesame seeds Allergy (Unknown, Uncoded 12/21/24 16:36) Unknown Medication List - Last Reconciled 01/10/25 by Adithya Gutierrez MD acetaminophen 1,000 mg PO DAILY PRN amiodarone 200 mg PO DAILY cholecalciferol (vitamin D3) 25 mcg PO DAILY 90 days ferrous sulfate 325 mg PO BIDWM furosemide 40 mg See Protocol PO DAILY glipizide 2.5 mg PO DAILY levothyroxine 150 mcg PO DAILY@0600 metoprolol tartrate 75 mg PO BID nystatin 1 appl topical DAILY 30 days quetiapine 100 mg PO DAILY quetiapine ER mg PO rivaroxaban (Xarelto) 20 mg PO DAILY@1700 sacubitril-valsartan 24-26 mg (Entresto) 1 tab See Protocol PO BID 90 days spironolactone 25 mg See Protocol PO DAILY trazodone 225 mg PO BEDTIME Tobacco use date assessed: 01/10/25 Fall risk assessment: No Falls in past year Last assessed Fall Risk: 01/10/25 Dental Screening Dental Screen Date: 01/10/25 Did you have a dental visit in the last 12 months?: Yes Did you have a dental problem in the last 6 months where you did not have access to dental care?: No Was dental information given to patient?: Patient has dentist HPI F/U labs and diabetes HPI Details History - The patient is a 69-year-old female pr esenting with laboratory evaluation results and treatment follow-up. - There has been an improvement in hemog lobin levels, increasing from 10.7 g/dL last August to 11.1 g/dL, although still below normal. - The patient's hemoglobin A1c has shown improvement, decreasing from 8.2% to 7.0% during the same period. - Electrolyte levels are within normal r anges, and kidney function is reported as stable with no abnormalities noted. - The patient previously underwent a car diac catheterization; one of the vessels is 100 % blocked as per patient she has apt coming up next week to discuss her options. - Recent evaluations indicate normal thy roid function tests. - LDL cholesterol was measured at 85 mg/ dL, which is within target range. Problem List - Anemia, improved - Electrolyte levels within normal limit s - diabetes, improved - Hyperlipidemia - Status post cardiac catheterization - Normal thyroid function Patient Instructions - Continue taking glipizide 2.5 mg as pr escribed. - Maintain awareness of lab results, rios ecially hemoglobin and blood glucose levels. Review of Systems - General: No fever no chills - Neurological: No headaches no dizziness - Ear nose throat: No sore throat no hearing difficulty no ear pain - Cardiovascular: No syncope, no chest pain, no palpitations - Gastrointestinal: No nausea vomiting or diarrhea PFSH Medical History Non-insulin dependent type 2 diabetes mellitus Atrial flutter Bladder cancer Acute blood loss anemia Recurrent UTI Bilateral dacryocystitis Fall Frequency of urination Gait instability UTI (urinary tract infection) Pre-syncope Irritable bowel syndrome with diarrhea Chronic atrial fibrillation Paroxysmal atrial fibrillation C. difficile colitis Morbid obesity due to excess calories Weakness Leg edema Bipolar 1 disorder Vertigo PTSD (post-traumatic stress disorder) History of cardioversion Arthritis Hypothyroidism History of wheezing Diabetes mellitus HTN (hypertension) LBBB (left bundle branch block) PAF (paroxysmal atrial fibrillation) Surgical History History of cardiac radiofrequency ablation History of eye surgery Hx of section Hx of colonoscopy Hx of cholecystectomy Hx of arthroscopy of right knee Family History Father No problems noted. Mother No problems noted. Other Mental health disorder Substance use disorder Social History Household Members: Spouse Household Members Other:: daughter + Housing: Condominium Do you presently have visiting nurse or other home services: Yes Alcohol intake: former Comment: feels safe and has a lift at home Patient Tobacco Use Status: Former Tobacco user e-Cigarette/Vaping Use: Never Used Second Hand Smoke Exposure: No Advance Directives Date on File: 06/29/23 service: No Current occupational status: employed Sexual orientation: Straight/Heterosexual Cognitive needs: No Hearing needs: No Vision needs: Yes Questionnaire Thrive Questionnaire Date Thrive assessed: 09/25/24 AUDIT C Alcohol Use Questionnaire (AUDIT-C) 1. How often do you have a drink containing alcohol?: Never 3. How often do you have six or more drinks on one occasion?: Never Total Score: 0 Score Reviewed/Action Taken: Yes ZAID-7 AMB Questionnaire ZAID-7 Date ZAID - 7 assessed: 09/25/24 Source: Developed by Drs. Galo Triplett, Lavern Israel, Darion Jarvis and colleagues, with an educational lisette from [employer]. Physical exam (Primary Care) Tobacco/Smoking Status: Tobacco use Status Tobacco use date assessed 01/10/25 01/10/25 08:44 Patient Tobacco Use Status Former Tobacco user 01/10/25 08:44 e-Cigarette/Vaping Use Never Used 01/10/25 08:44 Thrive Assessment: Date of Thrive Assessment Date Thrive assessed 09/25/24 01/10/25 08:44 Telehealth Telehealth Telehealth Platform: [facility] Location of provider rendering services: practice address Location of patient: address on file Patient Identification confirmed using: Name, : Yes Telehealth method: video Patient verbally consented to treatment: Yes Patient verbally consented to billing insurance company: Yes Patient informed of any privacy concerns related to visit: Yes Minutes spent on Phone/Video with Pt.: 16 Coding Level of Care Code Tele Est Pt Level 3 (85646) Complex EM visit Add On G2211 Diagnoses Non-insulin dependent type 2 diabetes mellitus E11.9 Primary hypertension I10 Hypertension type: primary hypertension Other specified hypothyroidism E03.8 Diastolic dysfunction with chronic heart failure I50.32 Chronic atrial fibrillation I48.20 Coronary artery disease involving [place] coronary artery of [place] heart without angina pectoris I25.10 Coronary Disease-Associated Artery/Lesion type: [place] artery [place] vs. transplanted heart: [place] heart Associated angina: without angina Assessment & Plan Assessment & Plan (1) Non-insulin dependent type 2 diabetes mellitus: Code(s): E11.9 - Type 2 diabetes mellitus without complications Category: Medical (2) HTN (hypertension): Comment: As above Code(s): I10 - Essential (primary) hypertension Category: Medical Qualifiers: Hypertension type: primary hypertension Qualified Code(s): I10 - Essential (primary) hypertension (3) Other specified hypothyroidism: Code(s): E03.8 - Other specified hypothyroidism Category: Medical (4) Diastolic dysfunction with chronic heart failure: Code(s): I50.32 - Chronic diastolic (congestive) heart failure Category: Medical (5) Chronic atrial fibrillation: Code(s): I48.20 - Chronic atrial fibrillation, unspecified Category: Medical (6) CAD (coronary artery disease): Code(s): I25.10 - Atherosclerotic heart disease of [place] coronary artery without angina pectoris Category: Medical Qualifiers: Coronary Disease-Associated Artery/Lesion type: [place] artery [place] vs. transplanted heart: [place] heart Associated angina: without angina Qualified Code(s): I25.10 - Atherosclerotic heart disease of [place] coronary artery without angina pectoris Plan History - The patient is a 69-year-old female presenting with laboratory evaluation results and treatment follow-up. - There has been an improvement in hemoglobin levels, increasing from 10.7 g/dL last August to 11.1 g/dL, although still below normal. - The patient's hemoglobin A1c has shown improvement, decreasing from 8.2% to 7.0% during the same period. - Electrolyte levels are within normal ranges, and kidney function is reported as stable with no abnormalities noted. - The patient previously underwent a cardiac catheterization; one of the vessels is 100 % blocked as per patient she has apt coming up next week to discuss her options. - Recent evaluations indicate normal thyroid function tests. - LDL cholesterol was measured at 85 mg/dL, which is within target range. Problem List - Anemia, improved - Electrolyte levels within normal limits - diabetes, improved - Hyperlipidemia - Status post cardiac catheterization - Normal thyroid function Patient Instructions - Continue taking glipizide 2.5 mg as prescribed. - Maintain awareness of lab results, especially hemoglobin and blood glucose levels. Orders: Orders Complete Blood Count Auto Diff 5 Months E03.8 - Other specified hypothyroidism, E11.9 - Type 2 diabetes mellitus without complications, I10 - Essential (primary) hypertension, I25.10 - Atherosclerotic heart disease of [place] coronary artery without angina pectoris, I48.20 - Chronic atrial fibrillation, unspecified, I50.32 - Chronic diastolic (congestive) heart failure Microalbumin, Random (w Creat) 5 Months E03.8 - Other specified hypothyroidism, E11.9 - Type 2 diabetes mellitus without complications, I10 - Essential (primary) hypertension, I25.10 - Atherosclerotic heart disease of [place] coronary artery without angina pectoris, I48.20 - Chronic atrial fibrillation, unspecified, I50.32 - Chronic diastolic (congestive) heart failure TSH reflex Free T4 5 Months E03.8 - Other specified hypothyroidism, E11.9 - Type 2 diabetes mellitus without complications, I10 - Essential (primary) hypertension, I25.10 - Atherosclerotic heart disease of [place] coronary artery without angina pectoris, I48.20 - Chronic atrial fibrillation, unspecified, I50.32 - Chronic diastolic (congestive) heart failure Hemoglobin A1c 5 Months E03.8 - Other specified hypothyroidism, E11.9 - Type 2 diabetes mellitus without complications, I10 - Essential (primary) hypertension, I25.10 - Atherosclerotic heart disease of [place] coronary artery without angina pectoris, I48.20 - Chronic atrial fibrillation, unspecified, I50.32 - Chronic diastolic (congestive) heart failure Comprehensive Met. Panel 5 Months E03.8 - Other specified hypothyroidism, E11.9 - Type 2 diabetes mellitus without complications, I10 - Essential (primary) hypertension, I25.10 - Atherosclerotic heart disease of [place] coronary artery without angina pectoris, I48.20 - Chronic atrial fibrillation, unspecified, I50.32 - Chronic diastolic (congestive) heart failure Medications: Refilled glipizide 2.5 mg PO DAILY 90 tabs 1RF
== END 2025-01-10 09:20 | disposition home or self-care (01) ==
LOC: HO.HMCC 08:03
PROVIDERS: PCP Internal Medicine; Visit Provider Internal Medicine
DX: E11.9 Type 2 diabetes mellitus without complications (principal); I50.32 Chronic diastolic (congestive) heart failure; I48.20 Chronic atrial fibrillation, unspecified; I10 Essential (primary) hypertension; E03.8 Other specified hypothyroidism; I25.10 Atherosclerotic heart disease of native coronary artery without angina pectoris

== ENCOUNTER → 2025-01-10 08:03 | Outpatient (BNVA) | payer MEDICARE, BC, SELFPAY | PROVIDERS: PCP Internal Medicine; Visit Provider Internal Medicine ==

== ENCOUNTER 2025-01-15 09:53 | Outpatient (AMB) | payer MEDICARE, BC, SELFPAY ==
--- NOTE | 2025-01-15 09:57 | A.OFFVIS_ITS ---
Vital Signs 01/15/25 09:58 Height 5 ft 3 in BP 100/62 Blood Pressure Location Lt brachial Position Sitting Pulse 54 Pulse Source Monitor Intake Visit Reasons: s/p cardiac cath Natural Resources Instructor Required: No Allergies aspirin [ASA] Allergy (Intermediate, Verified 01/15/25 10:01) GI PAIN, upset stomach hazelnut Allergy (Unknown, Verified 01/15/25 10:01) Unknown shellfish derived Allergy (Unknown, Verified 01/15/25 10:01) Unknown divalproex sodium [From Depakote] Allergy (Verified 01/15/25 10:01) diarrhea, brain fog gluten Allergy (Verified 01/15/25 10:01) Unknown sesame seeds Allergy (Unknown, Uncoded 01/15/25 10:01) Unknown Medication List - Last Reconciled 01/15/25 by ETHAN Gutierrez acetaminophen 1,000 mg PO DAILY PRN amiodarone 200 mg PO DAILY cholecalciferol (vitamin D3) 25 mcg PO DAILY 90 days furosemide 40 mg See Protocol PO DAILY glipizide 2.5 mg PO DAILY levothyroxine 150 mcg PO DAILY@0600 metoprolol tartrate 75 mg PO BID nystatin 1 appl topical DAILY 30 days quetiapine 100 mg PO DAILY quetiapine ER mg PO rivaroxaban (Xarelto) 20 mg PO DAILY@1700 sacubitril-valsartan 24-26 mg (Entresto) 1 tab See Protocol PO BID 90 days spironolactone 25 mg See Protocol PO DAILY trazodone 225 mg PO BEDTIME HPI HPI s/p cardiac cath: Details: Chloe is a 69-year-old female with past medical history of hypertension, diabetes, diastolic dysfunction, morbid obesity, sedentary, paroxysmal AFib , bladder cancer who was recently admitted to [facility] in August 2024 with shortness of breath and edema. She was treated for diastolic heart failure and AFib RVR. An echocardiogram showed EF 30-35%. She was diuresed and sent home with daily Lasix. She was in atrial fibrillation, was started on amiodarone and converted to sinus rhythm. An outpatient nuclear stress test was abnormal and she underwent cardiac catheterization and now presents for follow- up. Today she reports that she does have shortness of breath with walking even short distances. She has been mostly sedentary and is currently sitting in a wheelchair. She has not had any recent heart palpitations. She denies having chest discomfort at rest or with activity. No lightheadedness, presyncope, syncope, falls. No bleeding issues reported. Right femoral catheterization site is feeling good. Taking meds as directed. Son is present [facility] Medical History Non-insulin dependent type 2 diabetes mellitus Atrial flutter Bladder cancer Acute blood loss anemia Recurrent UTI Bilateral dacryocystitis Fall Frequency of urination Gait instability UTI (urinary tract infection) Pre-syncope Irritable bowel syndrome with diarrhea Chronic atrial fibrillation Paroxysmal atrial fibrillation C. difficile colitis Morbid obesity due to excess calories Weakness Leg edema Bipolar 1 disorder Vertigo PTSD (post-traumatic stress disorder) History of cardioversion Arthritis Hypothyroidism History of wheezing Diabetes mellitus HTN (hypertension) LBBB (left bundle branch block) PAF (paroxysmal atrial fibrillation) Surgical History History of cardiac cath History of cardiac radiofrequency ablation History of eye surgery Hx of section Hx of colonoscopy Hx of cholecystectomy Hx of arthroscopy of right knee Family History Father No problems noted. Mother No problems noted. Other Mental health disorder Substance use disorder Social History Household Members: Spouse Household Members Other:: daughter + Housing: Condominium Do you presently have visiting nurse or other home services: Yes Alcohol intake: former Comment: feels safe and has a lift at home Patient Tobacco Use Status: Former Tobacco user e-Cigarette/Vaping Use: Never Used Second Hand Smoke Exposure: No Advance Directives Date on File: 06/29/23 service: No Current occupational status: employed Sexual orientation: Straight/Heterosexual Cognitive needs: No Hearing needs: No Vision needs: Yes Review of Systems Const All systems reviewed & are unremarkable except as noted in HPI and below ENT Denies dizziness Card Denies chest pain, Denies chest pain at rest, Denies chest pain with activity, Denies rapid heart rate, Denies pedal edema, Denies edema, Denies leg edema, Denies lightheadedness, Denies palpitations, Reports dyspnea, Reports dyspnea on exertion and Denies orthopnea Resp Denies cough, Reports dyspnea and Reports dyspnea on exertion GI Denies hematochezia and Denies change in stool character Musc Denies abnormal gait, Denies limited range of motion, Denies muscle cramps, Denies muscle weakness, Denies numbness, Denies radiating pain into limb, Denies stiffness and Denies tingling Neuro Denies abnormal gait, Denies dizziness, Denies numbness and Denies tingling Endo Denies palpitations Physical Exam Vital Signs: Last Vital Signs Pulse 54 01/15/25 09:58 BP 100/62 01/15/25 09:58 Const Other: sitting in wheelchair General: cooperative, healthy appearing, comfortable and no acute distress Orientation/consciousness: patient oriented x3 Neck Neck: Yes normal visual inspection and Yes no JVD Resp Effort & Inspection: normal respiratory effort Auscultation: clear to auscultation bilaterally, no rales, no rhonchi and no whe ezes Cardio Rate: regular rate Rhythm: regular rhythm Heart sounds: S1 normal heart sound present, S2 normal heart sound present, no murmurs and no rubs Neuro General: patient oriented x3 Extrem Other: Right femoral catheterization site healing well, palpable femoral pulse, nontender. General: Yes normal to inspection, No no pedal edema and No calf tenderness Psych Appearance: grossly normal Mental Status: mental status grossly normal Speech and movement: Normal speech and movement present Office Procedures EKG Details: Today, read by me, SB with 1st degree avb, LBBB, rate 54, JT Index 112.9 [id number], Complete Assessment & Plan Assessment & Plan (1) CAD (coronary artery disease): Code(s): I25.10 - Atherosclerotic heart disease of [place] coronary artery without angina pectoris Category: Medical Qualifiers: Coronary Disease-Associated Artery/Lesion type: [place] artery [place] vs. transplanted heart: [place] heart Associated angina: without angina Qualified Code(s): I25.10 - Atherosclerotic heart disease of [place] coronary artery without angina pectoris Plan: Echo from 09/10/2024 showed EF 30-35%, paradoxical septal motion consistent with left bundle branch block, regional wall motion abnormalities could not be excluded. This led to a nuclear stress test 10/18/2024 which showed LAD territory ischemia/infarct pattern. 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 Recommendation for single-vessel coronary artery bypass grafting. Spent time reviewing all the above findings and plan of care with her. Will refer to Cardiac surgery at [facility]. Continue with risk factor modification and guideline directed medical therapy. She is not on aspirin as she is on Xarelto. Labs from 12/21/2024 showed LDL 85. She is not on statin, will start atorvastatin 40 mg daily. She is on metoprolol and Entresto. Signs and symptoms of angina reviewed with her. Cardiology follow-up 3 months, sooner if needed. Anticipate that will be post surgery. 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 (3) Chronic atrial fibrillation: Code(s): I48.20 - Chronic atrial fibrillation, unspecified Category: Medical Plan: Prior known chronic atrial fibrillation. Recent [facility] admission for heart failure and AFib RVR. She was put on amiodarone with plan for cardioversion however she did convert to sinus rhythm with medication only. No known AFib since that time. EKG today showing sinus bradycardia with first-degree AV block, left bundle branch block, rate 54. Labs done 12/21/2024 showed TSH 0.67, AST 19, ALT 17, hematocrit 32.6. Continue amiodarone 200 mg daily, metoprolol 75 mg b.i.d. for rhythm and rate control. Continue Xarelto 20 mg daily for anticoagulation. A list of home vital signs reviewed and heart rate ranging 50s to 60s. If she does have significant bradycardia, increasing fatigue or lightheadedness the metoprolol dose can be reduced. (4) Diastolic dysfunction with chronic heart failure: Code(s): I50.32 - Chronic diastolic (congestive) heart failure Category: Medical Plan: [facility] admit in August with shortness of breath, new finding decompensated heart failure. Echocardiogram showed EF 30-35%, low normal RV systolic function, significantly elevated right atrial pressures, mild pulmonary hypertension. She has not had acute heart failure since that time. She does have NYHA class 3 symptoms. She does not appear fluid overloaded on exam today. Continue metoprolol and Entresto for neurohormonal modulation. Continue Lasix and Aldactone as diuretics. Continue home weight monitoring. She can take 1 extra Lasix pill if she gains over 3 lb in a day or 5 lb in a week. Anticipate that EF will improve following coronary artery bypass surgery. (5) Chronic anticoagulation: Code(s): Z79.01 - nursing home (current) use of anticoagulants Category: Medical Plan: On Xarelto for anticoagulation. (6) Cardiomyopathy: Code(s): I42.9 - Cardiomyopathy, unspecified Category: Medical Plan: Ischemic, as above Plan Time spent on chart review, documentation, interview and assessment Orders: Referrals Cardiac Surgery Referral I25.10 - Atherosclerotic heart disease of [place] coronary artery without angina pectoris, I42.9 - Cardiomyopathy, unspecified, Z98.890 - Other specified postprocedural states Coding Level of Care Code Est Pt Level 4 (54507) Complex EM visit Add On G2211 Diagnoses Coronary artery disease involving [place] coronary artery of [place] heart without angina pectoris I25.10 Coronary Disease-Associated Artery/Lesion type: [place] artery [place] vs. transplanted heart: [place] heart Associated angina: without angina S/P cardiac cath Z98.890 Chronic atrial fibrillation I48.20 Diastolic dysfunction with chronic heart failure I50.32 Chronic anticoagulation Z79.01 Cardiomyopathy I42.9 CPT Codes EKG - CPT: 11005-[id number], Complete ([id number]) Time Spent (min) 36
[2025-01-15 09:58] VITALS: BP 100/62; PULSE 54
--- OUTSIDE RECORDS SUMMARY | 2025-01-15 11:10 | XMS_ITS ---
Author Organization [facility] Care Team Providers Care Petroleum Supply Specialist Name Role Phone Wil Mayfield Unavailable Unavailable Shefali Valente Unavailable Unavailable Emely Mcclendon Unavailable Unavailable Allergies and adverse reactions Code CodeSystem Substance Reaction Severity StartDate Concern Status Shrimp Skin reaction - finding (code- 652082051, SNOMED CT) Moderate 07/02/2023 active Sesame Seed Nausea (code- 297435984, SNOMED CT) Moderate 07/02/2023 active Chantell Nut Nausea (code- 713154610, SNOMED CT) Moderate 07/02/2023 active Gluten Nausea (code- 358609436, SNOMED CT) Moderate 07/02/2023 active 1191 RXNORM Aspirin Skin reaction - finding (code- 541278018, SNOMED CT) Moderate 07/02/2023 active Care Team Name Role Address Phone Organization María Mayfield PCP [address] [address], [place], [address], [place] (Office): : [facility] 07/02/2023 - 08/12/2023 Shefali Valente Attending Physician [address], [place], [address], [place] (Office): : [facility] 07/02/2023 - 08/12/2023 Emely Mcclendon Attending Physician [address], [place], [address], [facility] (Office): [facility] 07/02/2023 - 08/12/2023 Mental Status Section Date Assessment Total Score Description 08/12/2023 BIMS 14 cognitively int act CAM 0 No delirium ind icated 07/08/2023 BIMS 14 cognitively int act CAM 0 No delirium ind icated PHQ-9 03 minimal depress ion Problems Problem # Description Date of onset Resolved Date Code CodeSystem Concern Status 1 BIPOLAR DISORDER, UNSPECIFIED 07/02/[address] active 2 CHRONIC ATRIAL FIBRILLATION, UNSPECIFIED 07/02/[address] active 3 ESSENTIAL (PRIMARY) HYPERTENSION 07/02/[address] active 4 HYPOTHYROIDISM, UNSPECIFIED 07/02/[address] active 5 LEFT BUNDLE-BRANCH BLOCK, UNSPECIFIED 07/02/[address] active 6 OTHER LACK OF COORDINATION 07/02/[address] active 7 TYPE 2 DIABETES MELLITUS WITHOUT COMPLICATIONS 07/02/[address] active 8 UNSPECIFIED FALL, SUBSEQUENT ENCOUNTER 07/02/[address] active Reason for Referral No Reasons for Referral Entered Social History Social History Observation Description Start Date End Date Code Code System Current Smoking Status Tobacco smoking consumption unknown 283344639 SNOMED CT Sex Assigned At Female 1955 25083-0 [facility] Vital Signs Code Code System Vitals Name Values and Units Timing Information 71368-8 LOINC Pain Level Value=0.0 08/12/2023 9279-1 LOINC Respiratory Rate Value=16.0 Units=/m in 08/11/2023 8462-4 LOINC Blood Pressure-Diastolic Value=70 Un its=mmHg 08/11/2023 8480-6 LOINC Blood Pressure-Systolic Vtbzf=381 Un its=mmHg 08/11/2023 8310-5 LOINC Body Temperature Value=98.1 Units=?? F 08/11/2023 8867-4 [facility] Heart rate Value=76.0 Units=/min 09/2023 22151-6 [facility] O2 % BldC Oximetry Value=94.0 Units= % 08/11/2023 95839-3 [facility] Weight Ceuyf=166.4 Units=Lbs 03/2023 8302-2 [facility] Height Value=62.0 Units=Inches 07/02/2023
--- OUTSIDE RECORDS SUMMARY | 2025-01-15 11:10 | XMS_ITS | Patient Health Record ---
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
== END 2025-01-15 10:47 | disposition home or self-care (01) ==
LOC: HO.HCS 09:54
PROVIDERS: PCP Internal Medicine; Visit Provider Nurse Practitioner Family
DX: I25.10 Atherosclerotic heart disease of native coronary artery without angina pectoris (principal); Z98.890 Other specified postprocedural states; I48.20 Chronic atrial fibrillation, unspecified; I50.32 Chronic diastolic (congestive) heart failure; Z79.01 Long term (current) use of anticoagulants; I42.9 Cardiomyopathy, unspecified
CPT/HCPCS: 93010; 99214; G2211

== ENCOUNTER → 2025-01-15 09:53 | Outpatient (BNVA) | payer MEDICARE, BC, SELFPAY | PROVIDERS: PCP Internal Medicine; Visit Provider Nurse Practitioner Family | DX: I11.0 Hypertensive heart disease with heart failure (principal); I48.20 Chronic atrial fibrillation, unspecified; I25.10 Atherosclerotic heart disease of native coronary artery without angina pectoris; I50.32 Chronic diastolic (congestive) heart failure; I42.9 Cardiomyopathy, unspecified; Z87.891 Personal history of nicotine dependence; Z79.01 Long term (current) use of anticoagulants; Z98.890 Other specified postprocedural states | CPT/HCPCS: 93005; 99212 ==

== ENCOUNTER 2025-03-23 07:10 | Inpatient (IN) | payer MEDICARE, BC, SELFPAY ==
[2025-03-23 07:33] VITALS: BP 113/50; PULSE 88; RESP 16; TEMP 36.7; O2SAT 97; BMI 43.2
[2025-03-23 07:45] VITALS: PULSE 88; RESP 16; TEMP 36.7; O2SAT 97
--- NOTE | 2025-03-23 07:56 | PC.NURSE ---
ASSUMED CARE OF PT AT APPROXIMATELY 0720. PT WAS BROUGHT IN BY EMS FOR INCREASED SIGNS OF SHIRLENE. PT APPEARS HYPERVERBAL, TANGENTIAL, AND PARANOID REGARDING HER . PT HAS BEEN OFF HER MEDICATIONS FOR THE PAST 3-4 WEEKS. PT IS OPEN TO RECEIVING TREATMENT. AWAITING CARE TEAM ASSESSMENT.
[2025-03-23 08:08] LABS: MANUAL DIFF FLAG NO
[2025-03-23 08:10] LABS: Basophils Absolute Auto 0.1 X10*3/uL (0.0-0.2); Basophils Percent Auto 1.2 % (0-2); Eosinophils Absolute Auto 0.2 X10*3/uL (0.0-0.4); Eosinophils Percent Auto 3.4 % (0-4); Hematocrit 38.1 % (37.0-47.0); Hemoglobin 13.1 g/dl (12.0-16.0); Imm Gran Abs Auto 0.03 X10*3/uL (0.00-0.03); Imm Gran Pct Auto 0.4 % (0.0-0.4); Lymphocytes Absolute Auto 2.5 X10*3/uL (1.2-4.9); Lymphocytes Percent Auto 37.3 % (20-40); Mean Corpuscular HGB Conc 34.4 g/dl (31.0-35.0); Mean Corpuscular Hemoglobin 30.3 pg (27.0-33.0); Mean Corpuscular Volume 88.2 fL (80.0-98.0); Mean Platelet Volume 8.9 fL (9.4-12.3); Monocytes Absolute Auto 0.5 X10*3/uL (0.1-1.2); Monocytes Percent Auto 7.5 % (2-11); Neutrophils Absolute Auto 3.3 x10*3/uL (2.0-8.3); Neutrophils Percent Auto 50.2 % (45-73); Platelet Count 275 X10*3/uL (160-400); Red Blood Count 4.32 X10*6/uL (4.20-5.50); Red Cell Distribution Width 12.6 % (11.0-16.0); White Blood Count 6.7 X10*3/uL (4.8-10.8)
[2025-03-23 08:24] LABS: Alanine Aminotransferase 20 U/L (0-31); Albumin Level 4.2 g/dL (3.5-5.0); Alkaline Phosphatase 66 U/L (39-117); Anion Gap 17 (12-20); Aspartate Amino Transferase 21 U/L (5-31); Bilirubin Total 0.3 mg/dL (0.0-1.0); Blood Urea Nitrogen 17 mg/dL (9-16); Calcium 9.5 mg/dL (8.4-10.2); Carbon Dioxide 24 mmol/L (22-29); Chloride 102 mmol/L (96-108); Creatinine Clr Calc Pharmacy 81.5; Estimated Glomerular Filt Rate > 60; Ethanol 13 mg/dL; Glucose Random 236 mg/dL (60-115); Potassium 4.2 mmol/L (3.3-5.1); Sodium 139 mmol/L (135-145); Total Protein 7.8 g/dL (6.5-8.0)
[2025-03-23 08:56] LABS: Appearance Urine Clear; Color Urine Yellow; Glucose Urine UA Negative (Negative); Leukocyte Esterase Urine Moderate (2+) (Negative); Nitrite Urine Negative (Negative); PH 5.5 (5.0-9.0); Specific Gravity - Urine 1.015 (1.005-1.025); UMIC TRIGGER UACC YES; Urine Blood Trace (Negative); Urine Ketones Negative (Negative); Urine Protein Negative (Neg-Trace)
[2025-03-23 09:01] LABS: Bacteria Urine Trace (None Seen); Hyaline Casts Urine 0-2 /LPF (0-2); RBC Urine 0-2 /HPF (0-2); UACC Culture Trigger YES; WBC Urine 21-50 /HPF (0-5)
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
[2025-03-23 09:08] LABS: Amphetamine Screen Urine Not Detected (Not Detect); Barbiturates, Urine Not Detected (Not Detect); Benzodiazepines Screen Urine Not Detected (Not Detect); Buprenorphine Scr Not Detected (Not Detect); Cannabinoid Screen Urine Not Detected (Not Detect); Cocaine Screen Urine Not Detected (Not Detect); Fentanyl, urine Not Detected (Not Detect); Methadone Screen, Urine Not Detected (Not Detect); Opiate Screen Urine Not Detected (Not Detect); Oxycodone Screen Urine Not Detected (Not Detect); Phencyclidine Screen Urine Not Detected (Not Detect)
[2025-03-23] MEDS: cefuroxime axetiL 250 MG TABLET PO ×2 (10:25→20:28)
[2025-03-23] MEDS: Rivaroxaban 20 MG TABLET PO (16:15)
[2025-03-23] MEDS: Acetaminophen 325 MG TABLET 975 MG PO (18:15)
[2025-03-23 20:13] VITALS: BP 136/57; PULSE 74; RESP 16; TEMP 37.1; O2SAT 97
[2025-03-23 20:24] VITALS: BP 136/57; PULSE 74
[2025-03-23] MEDS: Metoprolol Tartrate 25 MG TABLET 75 MG PO (20:24)
[2025-03-23] MEDS: QUEtiapine Fumarate 200 MG TABLET PO (20:25)
[2025-03-23] MEDS: traZODone HCL 25 MG HALFTAB 225 MG PO (20:25)
[2025-03-23 20:26] VITALS: BP 136/57
[2025-03-23] MEDS: Sacubitril/Valsartan 24/26 1 TAB TABLET PO (20:26)
[2025-03-24] MEDS: Melatonin 3 MG TABLET 9 MG PO (03:01)
[2025-03-24] MEDS: Levothyroxine Sodium 150 MCG TABLET PO (07:16)
[2025-03-24] MEDS: Furosemide 40 MG TABLET PO (07:17)
[2025-03-24] MEDS: glipiZIDE 5 MG TABLET 2.5 MG PO (08:00)
[2025-03-24] MEDS: Amiodarone HCL 200 MG TABLET PO (08:01)
[2025-03-24] MEDS: QUEtiapine Fumarate 100 MG TABLET PO (08:01)
[2025-03-24] MEDS: Metoprolol Tartrate 25 MG TABLET 75 MG PO ×2 (08:01→21:08)
[2025-03-24] MEDS: Spironolactone 25 MG TABLET PO (08:01)
[2025-03-24] MEDS: QUEtiapine Fumarate 200 MG TABLET PO ×2 (08:01→21:08)
[2025-03-24] MEDS: Cholecalciferol (Vitamin D3) 25 MCG TABLET PO (08:02)
[2025-03-24 08:58] VITALS: BP 139/76; PULSE 70; RESP 14; TEMP 36.6; O2SAT 98
[2025-03-24] MEDS: Sacubitril/Valsartan 24/26 1 TAB TABLET PO ×2 (10:40→21:08)
--- NOTE | 2025-03-24 12:04 | PC.NURSE ---
Pt has periods of agitation where she feels as though others are not paying attention to her and she becomes upset
--- NOTE | 2025-03-24 13:03 | PHA.MEDREC ---
Addendum entered by Prisca Mosqueda [facility] 03/24/25 13:23: REVIEWED BY PHARMACIST Original Note: Pharmacy Consult ? Medication Reconciliation Pharmacy has completed the medication reconciliation. Spoke with daughter over the phone to confirm medications but she did not know specific doses and names. Called spouse to review patients medication list. He believes that the patient has not taken her meds in 3-4 days. He reports quetiapine was recently increased from 100 mg IR + 200 mg ER @ HS to 100 mg IR + 400 mg ER @ HS, however, he is unsure if patient started new dose since he has been finding tablets in her purse. He also said they now have a 50 mg quetiapine as needed. Left original dose (100 mg IR + 200 mg ER @HS) and added 50 mg prn of quetiapine.
[2025-03-24 14:55] VITALS: BP 140/75; PULSE 69; RESP 15; TEMP 36.4; O2SAT 98
--- NOTE | 2025-03-24 17:02 | PC.NURSE ---
BELONGINGS: Locker 4
[2025-03-24] MEDS: Rivaroxaban 20 MG TABLET PO (17:07)
--- NOTE | 2025-03-24 18:36 | MHC.EDTECH ---
Patent given dinner tray
--- NOTE | 2025-03-24 19:01 | PC.NURSE ---
patient appears to remain at rest presently, seated and reading at desk in room, patient appears in no distress
[2025-03-24 20:08] VITALS: BP 175/68; PULSE 70; RESP 20; TEMP 37; O2SAT 97
--- NOTE | 2025-03-24 20:54 | MHC.EDTECH ---
Patient given eyeglasses
[2025-03-24 21:08] VITALS: BP 175/68; PULSE 70
[2025-03-24] MEDS: cefuroxime axetiL 250 MG TABLET PO (21:09)
[2025-03-24] MEDS: traZODone HCL 25 MG HALFTAB 225 MG PO (21:09)
[2025-03-25] MEDS: Acetaminophen 325 MG TABLET 975 MG PO ×2 (01:08→09:50)
--- NOTE | 2025-03-25 04:18 | PC.NURSE ---
patient had about 20 minutes of singing on bed and then went to restroom for about 10 mins many flushes and thereafter client seats self in common area, at this time t/w is not redirecting client.
--- NOTE | 2025-03-25 04:23 | PC.NURSE ---
patient requests pudding an water and returns to room
--- NOTE | 2025-03-25 04:33 | PC.NURSE ---
awake reading in room
--- NOTE | 2025-03-25 04:44 | PC.NURSE ---
it appears client is again attempting to retire.
[2025-03-25] MEDS: Amiodarone HCL 200 MG TABLET PO (07:35)
[2025-03-25] MEDS: Metoprolol Tartrate 25 MG TABLET 75 MG PO ×2 (07:35→20:16)
[2025-03-25] MEDS: Furosemide 40 MG TABLET PO (07:35)
[2025-03-25] MEDS: Spironolactone 25 MG TABLET PO (07:35)
[2025-03-25] MEDS: Levothyroxine Sodium 150 MCG TABLET PO (07:35)
[2025-03-25] MEDS: Cholecalciferol (Vitamin D3) 25 MCG TABLET PO (07:35)
[2025-03-25] MEDS: glipiZIDE 5 MG TABLET 2.5 MG PO (07:36)
[2025-03-25] MEDS: QUEtiapine Fumarate 100 MG TABLET PO (07:36)
[2025-03-25] MEDS: QUEtiapine Fumarate 200 MG TABLET PO ×2 (07:36→20:13)
--- NOTE | 2025-03-25 08:27 | PC.NURSE ---
Assumed care of patient at 0645, patient appears to be in no apparent distress this am, ambulating around BH pod, offering no complaints to this RN. Spoke on phone with daughter about visiting today. Continue plan of care for IPLOC
[2025-03-25 08:41] VITALS: BP 128/75; PULSE 72; RESP 15; TEMP 36.7; O2SAT 100
[2025-03-25] MEDS: Sacubitril/Valsartan 24/26 1 TAB TABLET PO ×2 (09:50→20:13)
[2025-03-25] MEDS: Rivaroxaban 20 MG TABLET PO (16:58)
[2025-03-25 18:36] VITALS: BP 143/70; PULSE 67; RESP 18; O2SAT 97
--- NOTE | 2025-03-25 18:37 | PC.NURSE ---
pt reporting to this RN that she has some swelling going on in her legs . Upon further observation, pt has swelling of the lower extremities, +2 pitting edema bilaterally. pt does take furosemide in the am regularly, has been taking it here in the pod as well. MD Lozano made aware, no new orders at this time
[2025-03-25 20:12] VITALS: BP 141/64; PULSE 73; RESP 16; TEMP 36.9; O2SAT 94
[2025-03-25 20:13] VITALS: BP 141/64
[2025-03-25 20:16] VITALS: BP 141/64; PULSE 73
--- NOTE | 2025-03-25 20:26 | PC.NURSE ---
Took over NELLY Montoya pt medicated per dec.
[2025-03-25] MEDS: traZODone HCL 100 MG TABLET 200 MG PO (20:49)
[2025-03-25] MEDS: traZODone HCL 25 MG HALFTAB PO (20:50)
[2025-03-25] MEDS: cefuroxime axetiL 250 MG TABLET PO (21:23)
[2025-03-26] VITALS (7 sets, daily range): BP systolic 126–142; BP diastolic 60–67; PULSE 67–85; RESP 16; TEMP 36.4–37.1; O2SAT 95–97; BMI 44.2
--- NOTE | 2025-03-26 01:18 | PC.NURSE ---
pt oob to bathroom, back in bed, no sign of distress.
--- NOTE | 2025-03-26 03:02 | PC.NURSE ---
pt given water, no sign of distress.
--- NOTE | 2025-03-26 04:47 | PC.NURSE ---
pt out of bed to bathroom.
[2025-03-26] MEDS: Levothyroxine Sodium 150 MCG TABLET PO (05:49)
--- NOTE | 2025-03-26 05:52 | PC.NURSE ---
Medicated by yenni monroy.
--- NOTE | 2025-03-26 07:58 | PC.NURSE ---
Pt calm, cooperative, sitting with RN for brief conversation regarding eye drops. No obvious paranoia at this time. Has been on the phone mult times to friends/ fam.
--- NOTE | 2025-03-26 09:00 | ECG_ITS ---
Test Reason : check qt Blood Pressure : */* mmHG Vent. Rate : 71 BPM Atrial Rate : 71 BPM P-R Int : 206 ms QRS Dur : 134 ms QT Int : 466 ms P-R-T Axes : 79 -12 95 degrees QTcB Int : 506 ms Normal sinus rhythm Left bundle branch block Minimal voltage criteria for LVH, may be normal variant ( [place] product ) Cannot rule out Anterior infarct , age undetermined Abnormal ECG When compared with ECG of 11-Sep-2024 17:36, No significant change was found Referred By: Dave Clark Electronically Signed By: TC LEWIS MD
[2025-03-26] MEDS: Furosemide 40 MG TABLET PO (09:05)
[2025-03-26] MEDS: Metoprolol Tartrate 25 MG TABLET 75 MG PO ×2 (09:05→20:39)
[2025-03-26] MEDS: cefuroxime axetiL 250 MG TABLET PO ×2 (09:06→20:38)
[2025-03-26] MEDS: Amiodarone HCL 200 MG TABLET PO (09:06)
[2025-03-26] MEDS: Sacubitril/Valsartan 24/26 1 TAB TABLET PO ×2 (09:06→20:39)
[2025-03-26] MEDS: Spironolactone 25 MG TABLET PO (09:06)
[2025-03-26] MEDS: QUEtiapine Fumarate 100 MG TABLET PO (09:07)
[2025-03-26] MEDS: Cholecalciferol (Vitamin D3) 25 MCG TABLET PO (09:07)
[2025-03-26] MEDS: QUEtiapine Fumarate 200 MG TABLET PO ×2 (09:07→20:38)
[2025-03-26] MEDS: glipiZIDE 5 MG TABLET 2.5 MG PO (09:07)
--- NOTE | 2025-03-26 12:09 | PC.NURSE ---
napping. has been on the phone most of the morning.
--- NOTE | 2025-03-26 14:13 | PC.NURSE ---
RN to RN with M5.
[2025-03-26] MEDS: Artificial Tears 15 ML DROPS 1 DROP EYE-BOTH ×2 (15:26→20:40)
[2025-03-26] MEDS: Rivaroxaban 20 MG TABLET PO (17:46)
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
[2025-03-26] MEDS: traZODone HCL 100 MG TABLET 200 MG PO (20:38)
[2025-03-26] MEDS: traZODone HCL 25 MG HALFTAB PO (20:38)
[2025-03-27] MEDS: Levothyroxine Sodium 150 MCG TABLET PO (05:50)
[2025-03-27 08:00] VITALS: BP 140/83; PULSE 70; RESP 16; TEMP 36.5; O2SAT 96
[2025-03-27 08:36] LABS: Estimated Average Glucose 180 mg/dL; Hemoglobin A1c % 7.9 % (<6.0)
[2025-03-27 08:38] LABS: Alanine Aminotransferase 22 U/L (0-31); Alkaline Phosphatase 69 U/L (39-117); Anion Gap 15 (12-20); Aspartate Amino Transferase 20 U/L (5-31); Bilirubin Total 0.3 mg/dL (0.0-1.0); Blood Urea Nitrogen 19 mg/dL (9-16); Calcium 9.5 mg/dL (8.4-10.2); Carbon Dioxide 25 mmol/L (22-29); Chloride 99 mmol/L (96-108); Cholesterol 179 mg/dL (<200); Creatinine Clr Calc Pharmacy 77.7; Estimated Glomerular Filt Rate > 60; Glucose Random 321 mg/dL (60-115); HDL Cholesterol 28 mg/dL (>40); Potassium 4.1 mmol/L (3.3-5.1); Sodium 135 mmol/L (135-145); Total Protein 7.3 g/dL (6.5-8.0); Triglycerides 573 mg/dL (<150)
[2025-03-27] MEDS: QUEtiapine Fumarate 100 MG TABLET PO (08:38)
[2025-03-27] MEDS: QUEtiapine Fumarate 200 MG TABLET PO ×2 (08:38→21:55)
[2025-03-27] MEDS: Metoprolol Tartrate 25 MG TABLET 75 MG PO ×2 (08:38→21:54)
[2025-03-27] MEDS: Sacubitril/Valsartan 24/26 1 TAB TABLET PO ×2 (08:39→21:55)
[2025-03-27] MEDS: glipiZIDE 5 MG TABLET 2.5 MG PO (08:39)
[2025-03-27] MEDS: Amiodarone HCL 200 MG TABLET PO (08:39)
[2025-03-27] MEDS: Cholecalciferol (Vitamin D3) 25 MCG TABLET PO (08:39)
[2025-03-27] MEDS: Spironolactone 25 MG TABLET PO (08:40)
[2025-03-27] MEDS: Artificial Tears 15 ML DROPS 1 DROP EYE-BOTH ×3 (08:40→21:57)
[2025-03-27] MEDS: Furosemide 40 MG TABLET PO (08:40)
[2025-03-27] MEDS: cefuroxime axetiL 250 MG TABLET PO ×2 (08:41→21:55)
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
[2025-03-27 09:25] LABS: Free T4 (Free Thyroxine) 1.02 ng/dL (0.71-1.85)
[2025-03-27 12:30] LABS: Glucose, Whole Blood 189 mg/dL (60-115)
[2025-03-27] MEDS: Acetaminophen 325 MG TABLET 975 MG PO (15:40)
[2025-03-27] MEDS: Rivaroxaban 20 MG TABLET PO (17:26)
[2025-03-27] MEDS: Insulin Lispro 100 UNIT/ML 3 ML VIAL SUBCUT ×2 (17:26→21:56)
[2025-03-27 20:00] VITALS: BP 147/64; PULSE 72; TEMP 36.4; O2SAT 96
[2025-03-27 20:20] LABS: Glucose, Whole Blood 209 mg/dL (60-115)
[2025-03-27 20:20] LABS: Glucose, Whole Blood 248 mg/dL (60-115)
[2025-03-27 21:54] VITALS: BP 147/64; PULSE 72
[2025-03-27 21:55] VITALS: BP 147/64
[2025-03-27] MEDS: traZODone HCL 100 MG TABLET 200 MG PO (21:55)
[2025-03-27] MEDS: traZODone HCL 25 MG HALFTAB PO (21:55)
[2025-03-28] MEDS: Levothyroxine Sodium 150 MCG TABLET PO (06:48)
[2025-03-28 07:00] VITALS: BMI 44.5
[2025-03-28 08:00] VITALS: BP 127/68; PULSE 67; RESP 18; TEMP 36.4; O2SAT 95
[2025-03-28 08:39] VITALS: BP 127/68
[2025-03-28] MEDS: QUEtiapine Fumarate 200 MG TABLET PO ×2 (08:39→21:56)
[2025-03-28] MEDS: Sacubitril/Valsartan 24/26 1 TAB TABLET PO ×2 (08:39→21:55)
[2025-03-28 08:40] VITALS: PULSE 67
[2025-03-28] MEDS: Metoprolol Tartrate 25 MG TABLET 75 MG PO ×2 (08:40→21:55)
[2025-03-28] MEDS: glipiZIDE 5 MG TABLET 2.5 MG PO (08:40)
[2025-03-28] MEDS: Furosemide 40 MG TABLET PO (08:44)
[2025-03-28] MEDS: Cholecalciferol (Vitamin D3) 25 MCG TABLET PO (08:44)
[2025-03-28] MEDS: Amiodarone HCL 200 MG TABLET PO (08:44)
[2025-03-28] MEDS: Artificial Tears 15 ML DROPS 1 DROP EYE-BOTH ×2 (08:44→16:11)
[2025-03-28] MEDS: Spironolactone 25 MG TABLET PO (08:45)
[2025-03-28 09:03] LABS: Glucose, Whole Blood 249 mg/dL (60-115)
[2025-03-28] MEDS: Nitrofurantoin Monohyd/M-Cryst 100 MG CAPSULE PO ×2 (09:32→21:56)
[2025-03-28] MEDS: QUEtiapine Fumarate 100 MG TABLET PO (09:32)
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
--- NOTE | 2025-03-28 09:41 | HO.PSYCHPN ---
Subjective Subjective Date of Service: 03/28/25 Reason For Visit: chau Subjective Notes: Conditional Voluntary Healthcare Proxy: No Guardianship: No Medical Problems Affecting Mental Status: No Interim History: Patient notes that she is in a good mood today. She had been taking her medications as prescribed. Her daughter is visiting and present. She notes that she slept last night. She denies SI/HI/AH/VH. Her daughter told social media coordinator that she was very concerned about the patient who went to the bank in her nightgown and transferred 4000 dollars from her 's account into hers. She was subsequently brought home by the police from her friend's home. Medication Compliance: Yes Side effects from medications: No Attending Groups: Intermittent Review of Systems Acute medical concerns: No Medical Review of Systems: unchanged Mental Status Exam Mental Status Exam Narrative: Appearance: Casually dressed Behavior: Calm and cooperative throughout the interview. Eye contact is appropriate, and there are no signs of psychomotor agitation or retardation Speech: Normal volume and prosody Thought process logical and goal-directed Thought content: No self-harming thoughts Mood: good Affect: Full, mood-congruent SI:denies HI:denies VH/AH:none Delusions: None Insight/judgment: Fair insight and judgment Memory/cog: Alert, oriented x 4. grossly intact to conversational testing Diagnostics Vital Signs (24Hr): Vital Signs - 24 hr 03/27/25 20:00 03/27/25 21:54 03/27/25 21:55 Temperature 97.5 F Pulse Rate 72 72 Blood Pressure 147/64 H 147/64 H 147/64 H Pulse Oximetry 96 Oxygen Delivery Method Room Air 03/28/25 08:39 03/28/25 08:40 Temperature Pulse Rate 67 Blood Pressure 127/68 Pulse Oximetry Oxygen Delivery Method BMI result Body Mass Index 44.2 Labs 03/23/25 08:01 03/27/25 08:00 Labs: Laboratory Results - last 48 hr 03/27/25 03/27/25 03/27/25 08:00 12:25 17:14 Sodium 135 Potassium 4.1 Chloride 99 Carbon Dioxide 25 Anion Gap 15 BUN 19 H Creatinine 0.85 Estim Creat Clear Calc 77.7 Estimated GFR > 60 POC Glucose 189 H 209 H Random Glucose 321 H Estimat Average Glucose 180 Hemoglobin A1c % 7.9 H Calcium 9.5 Total Bilirubin 0.3 AST 20 ALT 22 Alkaline Phosphatase 69 Total Protein 7.3 Albumin 4.0 Triglycerides 573 H Cholesterol 179 LDL Cholesterol, Calc TNP HDL Cholesterol 28 L TSH 4.50 H Free T4 1.02 03/27/25 03/28/25 20:12 08:30 Sodium Potassium Chloride Carbon Dioxide Anion Gap BUN Creatinine Estim Creat Clear Calc Estimated GFR POC Glucose 248 H 249 H Random Glucose Estimat Average Glucose Hemoglobin A1c % Calcium Total Bilirubin AST ALT Alkaline Phosphatase Total Protein Albumin Triglycerides Cholesterol LDL Cholesterol, Calc HDL Cholesterol TSH Free T4 Medications Medications Current Medications Acetaminophen (Acetaminophen 325 Mg Tablet) 975 mg PO DAILY PRN PRN Reason: Pain Last Admin: 03/27/25 15:40 Dose: 975 mg Acetaminophen (Acetaminophen 325 Mg Tablet) 650 mg PO Q6H PRN PRN Reason: Headache/Pain, Scale 1-10 Al Hydroxide/Mg Hydroxide (Magnesium Hydrox/Alum Hydrox 30 Ml Oral.Susp) 30 ml PO Q6H PRN PRN Reason: Heartburn/Nausea Amiodarone HCl (Amiodarone Hcl 200 Mg Tablet) 200 mg PO DAILY [facility] Last Admin: 03/28/25 08:44 Dose: 200 mg Artificial Tears (Artificial Tears 15 Ml Drops) 1 drop EYE-BOTH TID [facility] Last Admin: 03/28/25 08:44 Dose: 1 drop Dextrose (Dextrose 50 % 25 Gm/50 Ml Syringe) 25 gm IVPUSH Q15M PRN; Protocol PRN Reason: per Hypoglycemia Standing Ord. Furosemide (Furosemide 40 Mg Tablet) 40 mg PO DAILY [facility]; Protocol Last Admin: 03/28/25 08:44 Dose: 40 mg Glipizide (Glipizide 5 Mg Tablet) 2.5 mg PO DAILY [facility] Last Admin: 03/28/25 08:40 Dose: 2.5 mg Glucose (Glucose Gel 15 Gm Gel..Gram.) 15 gm PO Q15M PRN; Protocol PRN Reason: per Hypoglycemia Standing Ord. Hydroxyzine HCl (Hydroxyzine Hcl 25 Mg Tablet) 25 mg PO Q6H PRN PRN Reason: mild anxiety Insulin Human Lispro (Insulin Lispro 100 Unit/Ml 3 Ml Vial) 0 unit SUBCUT QIDACHS [facility]; Protocol Last Admin: 03/28/25 08:38 Dose: Not Given Levothyroxine Sodium (Levothyroxine Sodium 150 Mcg Tablet) 150 mcg PO DAILY@0600 [facility] Last Admin: 03/28/25 06:48 Dose: 150 mcg Magnesium Hydroxide (Milk Of Magnesia 30 Ml Oral.Susp) 30 ml PO DAILY PRN PRN Reason: Constipation Metoprolol Tartrate (Metoprolol Tartrate 25 Mg Tablet) 75 mg PO BID [facility]; Protocol Last Admin: 03/28/25 08:40 Dose: 75 mg Nicotine (Nicotine 21 Mg Patch.Td24) 21 mg TRANSDERMA DAILY PRN PRN Reason: smoking cessation Nicotine Polacrilex (Nicotine Polacrilex 2 Mg Gum) 4 mg BUCCAL Q2H PRN PRN Reason: Nicotine Cravings Nitrofurantoin Macrocrystals (Nitrofurantoin Monohyd/M-Cryst 100 Mg Capsule) 100 mg PO Q12H [facility] Stop: 04/01/25 08:59 Last Admin: 03/28/25 09:32 Dose: 100 mg Olanzapine (Olanzapine 5 Mg Tablet) 5 mg PO TID PRN PRN Reason: agitation Quetiapine Fumarate (Quetiapine Fumarate 100 Mg Tablet) 100 mg PO DAILY [facility] Last Admin: 03/28/25 09:32 Dose: 100 mg Quetiapine Fumarate (Quetiapine Fumarate 200 Mg Tablet) 200 mg PO BID [facility] Last Admin: 03/28/25 08:39 Dose: 200 mg Rivaroxaban (Rivaroxaban 20 Mg Tablet) 20 mg PO DAILY@1700 [facility] Last Admin: 03/27/25 17:26 Dose: 20 mg Sacubitril/Valsartan (Sacubitril/Valsartan 1 Tab Tablet) 1 tab PO BID [facility]; Protocol Last Admin: 03/28/25 08:39 Dose: 1 tab Spironolactone (Spironolactone 25 Mg Tablet) 25 mg PO DAILY [facility]; Protocol Last Admin: 03/28/25 08:45 Dose: 25 mg Trazodone HCl (Trazodone Hcl 100 Mg Tablet) 200 mg PO BEDTIME [facility] Last Admin: 03/27/25 21:55 Dose: 200 mg Trazodone HCl (Trazodone Hcl 25 Mg Halftab) 25 mg PO BEDTIME [facility] Last Admin: 03/27/25 21:55 Dose: 25 mg Vitamin D (Cholecalciferol (Vitamin D3) 25 Mcg Tablet) 25 mcg PO DAILY [facility] Last Admin: 03/28/25 08:44 Dose: 25 mcg Allergies Allergies Allergy/AdvReac Type Severity Reaction Status Date / Time divalproex sodium Allergy Mild diarrhea, Verified 03/23/25 07:44 [From Depakote] brain fog gluten Allergy Mild Unknown Verified 03/23/25 07:44 hazelnut Allergy Unknown Unknown Verified 01/15/25 10:01 shellfish derived Allergy Unknown Unknown Verified 01/15/25 10:01 sesame seeds Allergy Unknown Unknown Uncoded 01/15/25 10:01 Assessment & Plan Assessment & Plan (1) Bipolar 1 disorder: Status: Acute Code(s): F31.9 - Bipolar disorder, unspecified Plan 69-year-old female with past medical history of bipolar, PTSD, AFib, hypothyroidism, hypertension, LBBB, presented to [facility] [place] on 03/23/2025 for chau, paranoia, and auditory hallucinations. She notes that she had a verbal altercation immediately before presenting to the ED. She states that she received the call from her psychiatrist who inform her that she was returning a call regarding a voicemail she received from their home; the voicemail noted that the patient has not been sleeping and needed more medications. The patient inform her psychiatrist that she was unaware of the call which her may have made. She states that her is in charge of administering her medications and was giving her more of her medications than prescribed, and made her groggy. Therefore, she came the trazodone, without knowledge, and was not on the medication for 3 days; however, she slept adequately. Also, was upset after she recently told him she decided not to go to the appointment with the director of the home regarding her plan for cremation and that she change her MOLST from DNR to full code. She notes that her is controlling and does not want her to make decisions about her life. Therefore, she did some research on the Internet and confirmed that her has been a narcissist for the 30 years they been together. As the verbal altercation regarding her 's voicemail to her psychiatrist, which she was unaware of, escalated, the patient has called and asked her daughter to call 911, and she did. Patient was brought to the emergency department. She notes that she sleeps an average of 4-6 hours nightly. Sometimes, she would be awake, and not fall asleep at all, for 1-2 days; however, she does not recall the last time that happened. Per CARE team report, patient's reported that the patient had not slept for 3-4 days and stopped taking her psychotropic medications for about 3 weeks; there is a significant decline in her functioning. Patient denies SI, HI, AVH. She denies drugs or alcohol use. U tox was negative. BAL is 13. Formulation/Clinical reasoning: Bipolar 1 disorder with manic episode: Likely due to not taking her medications for about 3 weeks, leading to significant decline, including chau, paranoia, and functional impairment. Will continue current treatment regimen for now and will make adjustment as needed. She currently has UTI which may also contribute to her mental declines; she is currently treated with cefuroxime which is resistant to the current causative bacteria; will discontinue so fluoxetine and start nitrofurantoin for UTI. 03/28: Patient notes that she is in a good mood today. She had been taking her medications as prescribed. Her daughter is visiting and present. She notes that she slept last night. She denies SI/HI/AH/VH. Her daughter told social media coordinator that she was very concerned about the patient who went to the bank in her nightgown and transferred 4000 dollars from her 's account into hers. She was subsequently brought home by the police from her friend's home. Continue current treatment regimen. Plan Admit to M5. CV 15 minutes check. Diagnostics as needed. Collateral contact. Continue remainder of regime. Encouraged full milieu. Discharge planning. Patient educated on: therapeutic strategies Reason for continued inpatient stay Substantial Risk for: rapid decompensation Time Spent With Patient Time: Total time managing care of this patient today ____ minutes.
[2025-03-28 11:55] LABS: Glucose, Whole Blood 226 mg/dL (60-115)
[2025-03-28] MEDS: Rivaroxaban 20 MG TABLET PO (16:12)
[2025-03-28 20:00] VITALS: BP 125/60; PULSE 68; TEMP 36.6; O2SAT 97
[2025-03-28 20:06] LABS: Glucose, Whole Blood 207 mg/dL (60-115)
[2025-03-28 21:55] VITALS: BP 125/60; PULSE 68
[2025-03-28] MEDS: traZODone HCL 100 MG TABLET 200 MG PO (21:56)
[2025-03-28] MEDS: traZODone HCL 25 MG HALFTAB PO (21:56)
[2025-03-29] MEDS: Acetaminophen 325 MG TABLET 650 MG PO ×2 (00:25→21:38)
[2025-03-29] MEDS: Levothyroxine Sodium 150 MCG TABLET PO (06:26)
[2025-03-29 08:00] VITALS: BP 142/70; PULSE 98; TEMP 36.4; O2SAT 98
[2025-03-29 08:16] LABS: Glucose, Whole Blood 219 mg/dL (60-115)
[2025-03-29 08:57] VITALS: BP 120/59; PULSE 65
[2025-03-29] MEDS: Metoprolol Tartrate 25 MG TABLET 75 MG PO ×2 (08:57→21:37)
[2025-03-29 08:58] VITALS: BP 120/59
[2025-03-29] MEDS: Furosemide 40 MG TABLET PO (08:58)
[2025-03-29 08:59] VITALS: BP 120/59
[2025-03-29] MEDS: Spironolactone 25 MG TABLET PO (08:59)
[2025-03-29] MEDS: glipiZIDE 5 MG TABLET 2.5 MG PO (08:59)
[2025-03-29] MEDS: Sacubitril/Valsartan 24/26 1 TAB TABLET PO ×2 (08:59→21:39)
[2025-03-29] MEDS: Amiodarone HCL 200 MG TABLET PO (08:59)
[2025-03-29] MEDS: Artificial Tears 15 ML DROPS 1 DROP EYE-BOTH (08:59)
[2025-03-29] MEDS: Nitrofurantoin Monohyd/M-Cryst 100 MG CAPSULE PO ×2 (08:59→21:40)
[2025-03-29] MEDS: QUEtiapine Fumarate 200 MG TABLET PO ×2 (09:00→21:40)
[2025-03-29] MEDS: QUEtiapine Fumarate 100 MG TABLET PO (09:00)
[2025-03-29] MEDS: Acetaminophen 325 MG TABLET 975 MG PO (09:25)
[2025-03-29 11:36] LABS: Glucose, Whole Blood 186 mg/dL (60-115)
[2025-03-29 17:16] LABS: Glucose, Whole Blood 203 mg/dL (60-115)
[2025-03-29] MEDS: Rivaroxaban 20 MG TABLET PO (17:26)
[2025-03-29 20:00] VITALS: BP 142/70; PULSE 98; TEMP 36.4; O2SAT 95
[2025-03-29] MEDS: traZODone HCL 25 MG HALFTAB PO (21:37)
[2025-03-29] MEDS: traZODone HCL 100 MG TABLET 200 MG PO (21:37)
[2025-03-29 23:48] LABS: Glucose, Whole Blood 224 mg/dL (60-115)
[2025-03-30] MEDS: hydrOXYzine HCL 25 MG TABLET PO (01:31)
[2025-03-30] MEDS: OLANZapine 5 MG TABLET PO (01:31)
[2025-03-30] MEDS: Levothyroxine Sodium 150 MCG TABLET PO (06:29)
[2025-03-30 07:59] LABS: Glucose, Whole Blood 244 mg/dL (60-115)
[2025-03-30 09:13] VITALS: BP 138/65
[2025-03-30] MEDS: Cholecalciferol (Vitamin D3) 25 MCG TABLET PO (09:13)
[2025-03-30] MEDS: Nitrofurantoin Monohyd/M-Cryst 100 MG CAPSULE PO ×2 (09:13→21:21)
[2025-03-30] MEDS: glipiZIDE 5 MG TABLET 2.5 MG PO (09:13)
[2025-03-30] MEDS: Furosemide 40 MG TABLET PO (09:13)
[2025-03-30] MEDS: Amiodarone HCL 200 MG TABLET PO (09:13)
[2025-03-30 09:14] VITALS: BP 138/75; PULSE 70
[2025-03-30] MEDS: QUEtiapine Fumarate 200 MG TABLET PO ×2 (09:14→21:24)
[2025-03-30] MEDS: QUEtiapine Fumarate 100 MG TABLET PO (09:14)
[2025-03-30] MEDS: Metoprolol Tartrate 25 MG TABLET 75 MG PO ×2 (09:14→21:20)
[2025-03-30 09:15] VITALS: BP 138/65; BP 138/75; PULSE 90; TEMP 36.5; O2SAT 94
[2025-03-30] MEDS: Sacubitril/Valsartan 24/26 1 TAB TABLET PO ×2 (09:15→21:22)
[2025-03-30] MEDS: Spironolactone 25 MG TABLET PO (09:15)
[2025-03-30] MEDS: Insulin Lispro 100 UNIT/ML 3 ML VIAL SUBCUT ×3 (09:16→21:19)
[2025-03-30] MEDS: Artificial Tears 15 ML DROPS 1 DROP EYE-BOTH ×2 (09:21→15:00)
--- NOTE | 2025-03-30 10:26 | HO.PSYCHPN ---
Subjective Subjective Date of Service: 03/29/25 Reason For Visit: chau Interim History: late entry note for pt seen on 03/29; discussed with team pt remains pleasant, though still w/ paranoid delusions and suspicious Mental Status Exam Mental Status Exam Narrative: Appearance: Casually dressed Behavior: Calm and cooperative throughout the interview. Eye contact is appropriate, and there are no signs of psychomotor agitation or retardation Speech: Normal volume and prosody Thought process logical and goal-directed Thought content: No self-harming thoughts Mood: good Affect: Full, mood-congruent SI:denies HI:denies VH/AH:none Delusions: paranoid delusions Insight/judgment: Fair insight and judgment Memory/cog: Alert, oriented x 4. grossly intact to conversational testing Diagnostics Vital Signs (24Hr): Vital Signs - 24 hr 03/29/25 20:00 03/30/25 09:13 03/30/25 09:14 Temperature 97.6 F Pulse Rate 98 70 Blood Pressure 142/70 H 138/65 138/75 Pulse Oximetry 95 Oxygen Delivery Method Room Air 03/30/25 09:15 03/30/25 09:15 Temperature Pulse Rate Blood Pressure 138/75 138/75 Pulse Oximetry Oxygen Delivery Method BMI result Body Mass Index 44.5 Labs 03/23/25 08:01 03/27/25 08:00 Labs: Laboratory Results - last 48 hr 03/28/25 03/28/25 03/29/25 11:50 20:02 08:12 POC Glucose 226 H 207 H 219 H 03/29/25 03/29/25 03/29/25 11:33 17:12 21:13 POC Glucose 186 H 203 H 224 H 03/30/25 07:46 POC Glucose 244 H Medications Medications Current Medications Acetaminophen (Acetaminophen 325 Mg Tablet) 975 mg PO DAILY PRN PRN Reason: Pain Last Admin: 03/29/25 09:25 Dose: 975 mg Acetaminophen (Acetaminophen 325 Mg Tablet) 650 mg PO Q6H PRN PRN Reason: Headache/Pain, Scale 1-10 Last Admin: 03/29/25 21:38 Dose: 650 mg Al Hydroxide/Mg Hydroxide (Magnesium Hydrox/Alum Hydrox 30 Ml Oral.Susp) 30 ml PO Q6H PRN PRN Reason: Heartburn/Nausea Amiodarone HCl (Amiodarone Hcl 200 Mg Tablet) 200 mg PO DAILY [facility] Last Admin: 03/30/25 09:13 Dose: 200 mg Artificial Tears (Artificial Tears 15 Ml Drops) 1 drop EYE-BOTH TID [facility] Last Admin: 03/30/25 09:21 Dose: 1 drop Dextrose (Dextrose 50 % 25 Gm/50 Ml Syringe) 25 gm IVPUSH Q15M PRN; Protocol PRN Reason: per Hypoglycemia Standing Ord. Furosemide (Furosemide 40 Mg Tablet) 40 mg PO DAILY [facility]; Protocol Last Admin: 03/30/25 09:13 Dose: 40 mg Glipizide (Glipizide 5 Mg Tablet) 2.5 mg PO DAILY [facility] Last Admin: 03/30/25 09:13 Dose: 2.5 mg Glucose (Glucose Gel 15 Gm Gel..Gram.) 15 gm PO Q15M PRN; Protocol PRN Reason: per Hypoglycemia Standing Ord. Hydroxyzine HCl (Hydroxyzine Hcl 25 Mg Tablet) 25 mg PO Q6H PRN PRN Reason: mild anxiety Last Admin: 03/30/25 01:31 Dose: 25 mg Insulin Human Lispro (Insulin Lispro 100 Unit/Ml 3 Ml Vial) 0 unit SUBCUT QIDACHS [facility]; Protocol Last Admin: 03/30/25 09:16 Dose: 4 unit Levothyroxine Sodium (Levothyroxine Sodium 150 Mcg Tablet) 150 mcg PO DAILY@0600 [facility] Last Admin: 03/30/25 06:29 Dose: 150 mcg Magnesium Hydroxide (Milk Of Magnesia 30 Ml Oral.Susp) 30 ml PO DAILY PRN PRN Reason: Constipation Metoprolol Tartrate (Metoprolol Tartrate 25 Mg Tablet) 75 mg PO BID [facility]; Protocol Last Admin: 03/30/25 09:14 Dose: 75 mg Nicotine (Nicotine 21 Mg Patch.Td24) 21 mg TRANSDERMA DAILY PRN PRN Reason: smoking cessation Nicotine Polacrilex (Nicotine Polacrilex 2 Mg Gum) 4 mg BUCCAL Q2H PRN PRN Reason: Nicotine Cravings Nitrofurantoin Macrocrystals (Nitrofurantoin Monohyd/M-Cryst 100 Mg Capsule) 100 mg PO Q12H [facility] Stop: 04/01/25 08:59 Last Admin: 03/30/25 09:13 Dose: 100 mg Olanzapine (Olanzapine 5 Mg Tablet) 5 mg PO TID PRN PRN Reason: agitation Last Admin: 03/30/25 01:31 Dose: 5 mg Quetiapine Fumarate (Quetiapine Fumarate 100 Mg Tablet) 100 mg PO DAILY [facility] Last Admin: 03/30/25 09:14 Dose: 100 mg Quetiapine Fumarate (Quetiapine Fumarate 200 Mg Tablet) 200 mg PO BID [facility] Last Admin: 03/30/25 09:14 Dose: 200 mg Rivaroxaban (Rivaroxaban 20 Mg Tablet) 20 mg PO DAILY@1700 [facility] Last Admin: 03/29/25 17:26 Dose: 20 mg Sacubitril/Valsartan (Sacubitril/Valsartan 1 Tab Tablet) 1 tab PO BID [facility]; Protocol Last Admin: 03/30/25 09:15 Dose: 1 tab Spironolactone (Spironolactone 25 Mg Tablet) 25 mg PO DAILY [facility]; Protocol Last Admin: 03/30/25 09:15 Dose: 25 mg Trazodone HCl (Trazodone Hcl 100 Mg Tablet) 200 mg PO BEDTIME [facility] Last Admin: 03/29/25 21:37 Dose: 200 mg Trazodone HCl (Trazodone Hcl 25 Mg Halftab) 25 mg PO BEDTIME [facility] Last Admin: 03/29/25 21:37 Dose: 25 mg Vitamin D (Cholecalciferol (Vitamin D3) 25 Mcg Tablet) 25 mcg PO DAILY [facility] Last Admin: 03/30/25 09:13 Dose: 25 mcg Allergies Allergies Allergy/AdvReac Type Severity Reaction Status Date / Time divalproex sodium Allergy Mild diarrhea, Verified 03/23/25 07:44 [From Depakote] brain fog gluten Allergy Mild Unknown Verified 03/23/25 07:44 hazelnut Allergy Unknown Unknown Verified 01/15/25 10:01 shellfish derived Allergy Unknown Unknown Verified 01/15/25 10:01 sesame seeds Allergy Unknown Unknown Uncoded 01/15/25 10:01 Assessment & Plan Assessment & Plan (1) Bipolar 1 disorder: Status: Acute Code(s): F31.9 - Bipolar disorder, unspecified Plan 69-year-old female with past medical history of bipolar, PTSD, AFib, hypothyroidism, hypertension, LBBB, presented to [facility] via ambulance on 03/23/2025 for chau, paranoia, and auditory hallucinations. She notes that she had a verbal altercation immediately before presenting to the ED. She states that she received the call from her psychiatrist who inform her that she was returning a call regarding a voicemail she received from their home; the voicemail noted that the patient has not been sleeping and needed more medications. The patient inform her psychiatrist that she was unaware of the call which her may have made. She states that her is in charge of administering her medications and was giving her more of her medications than prescribed, and made her groggy. Therefore, she came the trazodone, without knowledge, and was not on the medication for 3 days; however, she slept adequately. Also, was upset after she recently told him she decided not to go to the appointment with the director of the home regarding her plan for cremation and that she change her MOLST from DNR to full code. She notes that her is controlling and does not want her to make decisions about her life. Therefore, she did some research on the Internet and confirmed that her has been a narcissist for the 30 years they been together. As the verbal altercation regarding her 's voicemail to her psychiatrist, which she was unaware of, escalated, the patient has called and asked her daughter to call 911, and she did. Patient was brought to the emergency department. She notes that she sleeps an average of 4-6 hours nightly. Sometimes, she would be awake, and not fall asleep at all, for 1-2 days; however, she does not recall the last time that happened. Per CARE team report, patient's reported that the patient had not slept for 3-4 days and stopped taking her psychotropic medications for about 3 weeks; there is a significant decline in her functioning. Patient denies SI, HI, AVH. She denies drugs or alcohol use. U tox was negative. BAL is 13. Formulation/Clinical reasoning: Bipolar 1 disorder with manic episode: Likely due to not taking her medications for about 3 weeks, leading to significant decline, including chau, paranoia, and functional impairment. Will continue current treatment regimen for now and will make adjustment as needed. She currently has UTI which may also contribute to her mental declines; she is currently treated with cefuroxime which is resistant to the current causative bacteria; will discontinue so fluoxetine and start nitrofurantoin for UTI. Hospital course: 03/28: Patient notes that she is in a good mood today. She had been taking her medications as prescribed. Her daughter is visiting and present. She notes that she slept last night. She denies SI/HI/AH/VH. Her daughter told child welfare social worker that she was very concerned about the patient who went to the bank in her nightgown and transferred 4000 dollars from her 's account into hers. She was subsequently brought home by the police from her friend's home. Continue current treatment regimen. 03/29 remains plesant but paranoid; will continue to see if restarting home regimen will be enough to bring her back to baseline; if not, will either increase doses or augment -may do better on Jamie Plan Admit to M5. CV 15 minutes check. Diagnostics as needed. Collateral contact. Continue remainder of regime. Encouraged full milieu. Discharge planning. Patient educated on: diagnosis Informed Consent: understands, does not understand and further education needed Reason for continued inpatient stay Substantial Risk for: inability to function Time Spent With Patient Time: Total time managing care of this patient today ____ minutes.
--- NOTE | 2025-03-30 11:06 | P.PNPSI_ITS ---
Subjective Subjective Date of Service: 03/30/25 Reason For Visit: chau Subjective Notes: Conditional Voluntary Interim History: Patient was seen and discussed in rounds today. Records and plans were reviewed. She refused her insulin yesterday but states that she will take a get because ?God wants me to?. I stressed the importance of that. Eating and sleeping adequately. No SI. No changes were made today Review of Systems Review of Systems Yes all other systems are reviewed and are negative Mental Status Exam Mental Status Exam Narrative: Appearance: Casually dressed Behavior: Calm and cooperative throughout the interview. Eye contact is appropriate, and there are no signs of psychomotor agitation or retardation Speech: Normal volume and prosody Thought process logical and goal-directed Thought content: No self-harming thoughts Mood: good Affect: Full, mood-congruent SI:denies HI:denies VH/AH:none Delusions: paranoid delusions Insight/judgment: Fair insight and judgment Memory/cog: Alert, oriented x 4. grossly intact to conversational testing Diagnostics Vital Signs (24Hr): Vital Signs - 24 hr 03/29/25 20:00 03/30/25 09:13 03/30/25 09:14 Temperature 97.6 F Pulse Rate 98 70 Blood Pressure 142/70 H 138/65 138/75 Pulse Oximetry 95 Oxygen Delivery Method Room Air 03/30/25 09:15 03/30/25 09:15 Temperature Pulse Rate Blood Pressure 138/75 138/75 Pulse Oximetry Oxygen Delivery Method BMI result Body Mass Index 44.5 Labs 03/23/25 08:01 03/27/25 08:00 Labs: Laboratory Results - last 48 hr 03/28/25 03/28/25 03/29/25 11:50 20:02 08:12 POC Glucose 226 H 207 H 219 H 03/29/25 03/29/25 03/29/25 11:33 17:12 21:13 POC Glucose 186 H 203 H 224 H 03/30/25 07:46 POC Glucose 244 H Medications Medications Current Medications Acetaminophen (Acetaminophen 325 Mg Tablet) 975 mg PO DAILY PRN PRN Reason: Pain Last Admin: 03/29/25 09:25 Dose: 975 mg Acetaminophen (Acetaminophen 325 Mg Tablet) 650 mg PO Q6H PRN PRN Reason: Headache/Pain, Scale 1-10 Last Admin: 03/29/25 21:38 Dose: 650 mg Al Hydroxide/Mg Hydroxide (Magnesium Hydrox/Alum Hydrox 30 Ml Oral.Susp) 30 ml PO Q6H PRN PRN Reason: Heartburn/Nausea Amiodarone HCl (Amiodarone Hcl 200 Mg Tablet) 200 mg PO DAILY [facility] Last Admin: 03/30/25 09:13 Dose: 200 mg Artificial Tears (Artificial Tears 15 Ml Drops) 1 drop EYE-BOTH TID [facility] Last Admin: 03/30/25 09:21 Dose: 1 drop Dextrose (Dextrose 50 % 25 Gm/50 Ml Syringe) 25 gm IVPUSH Q15M PRN; Protocol PRN Reason: per Hypoglycemia Standing Ord. Furosemide (Furosemide 40 Mg Tablet) 40 mg PO DAILY [facility]; Protocol Last Admin: 03/30/25 09:13 Dose: 40 mg Glipizide (Glipizide 5 Mg Tablet) 2.5 mg PO DAILY [facility] Last Admin: 03/30/25 09:13 Dose: 2.5 mg Glucose (Glucose Gel 15 Gm Gel..Gram.) 15 gm PO Q15M PRN; Protocol PRN Reason: per Hypoglycemia Standing Ord. Hydroxyzine HCl (Hydroxyzine Hcl 25 Mg Tablet) 25 mg PO Q6H PRN PRN Reason: mild anxiety Last Admin: 03/30/25 01:31 Dose: 25 mg Insulin Human Lispro (Insulin Lispro 100 Unit/Ml 3 Ml Vial) 0 unit SUBCUT QIDACHS [facility]; Protocol Last Admin: 03/30/25 09:16 Dose: 4 unit Levothyroxine Sodium (Levothyroxine Sodium 150 Mcg Tablet) 150 mcg PO DAILY@0600 [facility] Last Admin: 03/30/25 06:29 Dose: 150 mcg Magnesium Hydroxide (Milk Of Magnesia 30 Ml Oral.Susp) 30 ml PO DAILY PRN PRN Reason: Constipation Metoprolol Tartrate (Metoprolol Tartrate 25 Mg Tablet) 75 mg PO BID [facility]; Protocol Last Admin: 03/30/25 09:14 Dose: 75 mg Nicotine (Nicotine 21 Mg Patch.Td24) 21 mg TRANSDERMA DAILY PRN PRN Reason: smoking cessation Nicotine Polacrilex (Nicotine Polacrilex 2 Mg Gum) 4 mg BUCCAL Q2H PRN PRN Reason: Nicotine Cravings Nitrofurantoin Macrocrystals (Nitrofurantoin Monohyd/M-Cryst 100 Mg Capsule) 100 mg PO Q12H [facility] Stop: 04/01/25 08:59 Last Admin: 03/30/25 09:13 Dose: 100 mg Olanzapine (Olanzapine 5 Mg Tablet) 5 mg PO TID PRN PRN Reason: agitation Last Admin: 03/30/25 01:31 Dose: 5 mg Quetiapine Fumarate (Quetiapine Fumarate 100 Mg Tablet) 100 mg PO DAILY [facility] Last Admin: 03/30/25 09:14 Dose: 100 mg Quetiapine Fumarate (Quetiapine Fumarate 200 Mg Tablet) 200 mg PO BID [facility] Last Admin: 03/30/25 09:14 Dose: 200 mg Rivaroxaban (Rivaroxaban 20 Mg Tablet) 20 mg PO DAILY@1700 [facility] Last Admin: 03/29/25 17:26 Dose: 20 mg Sacubitril/Valsartan (Sacubitril/Valsartan 1 Tab Tablet) 1 tab PO BID [facility]; Protocol Last Admin: 03/30/25 09:15 Dose: 1 tab Spironolactone (Spironolactone 25 Mg Tablet) 25 mg PO DAILY [facility]; Protocol Last Admin: 03/30/25 09:15 Dose: 25 mg Trazodone HCl (Trazodone Hcl 100 Mg Tablet) 200 mg PO BEDTIME [facility] Last Admin: 03/29/25 21:37 Dose: 200 mg Trazodone HCl (Trazodone Hcl 25 Mg Halftab) 25 mg PO BEDTIME [facility] Last Admin: 03/29/25 21:37 Dose: 25 mg Vitamin D (Cholecalciferol (Vitamin D3) 25 Mcg Tablet) 25 mcg PO DAILY [facility] Last Admin: 03/30/25 09:13 Dose: 25 mcg Allergies Allergies Allergy/AdvReac Type Severity Reaction Status Date / Time divalproex sodium Allergy Mild diarrhea, Verified 03/23/25 07:44 [From Depakote] brain fog gluten Allergy Mild Unknown Verified 03/23/25 07:44 hazelnut Allergy Unknown Unknown Verified 01/15/25 10:01 shellfish derived Allergy Unknown Unknown Verified 01/15/25 10:01 sesame seeds Allergy Unknown Unknown Uncoded 01/15/25 10:01 Assessment & Plan Assessment & Plan (1) Bipolar 1 disorder: Status: Acute Code(s): F31.9 - Bipolar disorder, unspecified Plan 69-year-old female with past medical history of bipolar, PTSD, AFib, hypothyroidism, hypertension, LBBB, presented to [facility] via ambulance on 03/23/2025 for chau, paranoia, and auditory hallucinations. She notes that she had a verbal altercation immediately before presenting to the ED. She states that she received the call from her psychiatrist who inform her that she was returning a call regarding a voicemail she received from their home; the voicemail noted that the patient has not been sleeping and needed more medications. The patient inform her psychiatrist that she was unaware of the call which her may have made. She states that her is in charge of administering her medications and was giving her more of her medications than prescribed, and made her groggy. Therefore, she came the trazodone, without knowledge, and was not on the medication for 3 days; however, she slept adequately. Also, was upset after she recently told him she decided not to go to the appointment with the director of the home regarding her plan for cremation and that she change her MOLST from DNR to full code. She notes that her is controlling and does not want her to make decisions about her life. Therefore, she did some research on the Internet and confirmed that her has been a narcissist for the 30 years they been together. As the verbal altercation regarding her 's voicemail to her psychiatrist, which she was unaware of, escalated, the patient has called and asked her daughter to call 911, and she did. Patient was brought to the emergency department. She notes that she sleeps an average of 4-6 hours nightly. Sometimes, she would be awake, and not fall asleep at all, for 1-2 days; however, she does not recall the last time that happened. Per CARE team report, patient's reported that the patient had not slept for 3-4 days and stopped taking her psychotropic medications for about 3 weeks; there is a significant decline in her functioning. Patient denies SI, HI, AVH. She denies drugs or alcohol use. U tox was negative. BAL is 13. Formulation/Clinical reasoning: Bipolar 1 disorder with manic episode: Likely due to not taking her medications for about 3 weeks, leading to significant decline, including chau, paranoia, and functional impairment. Will continue current treatment regimen for now and will make adjustment as needed. She currently has UTI which may also contribute to her mental declines; she is currently treated with cefuroxime which is resistant to the current causative bacteria; will discontinue so fluoxetine and start nitrofurantoin for UTI. Hospital course: 03/28: Patient notes that she is in a good mood today. She had been taking her medications as prescribed. Her daughter is visiting and present. She notes that she slept last night. She denies SI/HI/AH/VH. Her daughter told social sciences department chair that she was very concerned about the patient who went to the bank in her nightgown and transferred 4000 dollars from her 's account into hers. She was subsequently brought home by the police from her friend's home. Continue current treatment regimen. 03/29 remains plesant but paranoid; will continue to see if restarting home regimen will be enough to bring her back to baseline; if not, will either increase doses or augment -may do better on Jamie Plan Admit to M5. CV 15 minutes check. Diagnostics as needed. Collateral contact. Continue remainder of regime. Encouraged full milieu. Discharge planning. 03/30: Continue current regimen and plans. Reason for continued inpatient stay Substantial Risk for: med/psych decompensation Time Spent With Patient Time: Total time managing care of this patient today ____ minutes.
[2025-03-30 12:13] LABS: Glucose, Whole Blood 143 mg/dL (60-115)
[2025-03-30 17:25] LABS: Glucose, Whole Blood 174 mg/dL (60-115)
[2025-03-30] MEDS: Rivaroxaban 20 MG TABLET PO (17:28)
[2025-03-30 19:46] VITALS: BP 112/64; PULSE 75; TEMP 36.6; O2SAT 97
[2025-03-30 21:01] LABS: Glucose, Whole Blood 285 mg/dL (60-115)
[2025-03-30] MEDS: traZODone HCL 100 MG TABLET 200 MG PO (21:21)
[2025-03-30] MEDS: traZODone HCL 25 MG HALFTAB PO (21:21)
[2025-03-30] MEDS: Acetaminophen 325 MG TABLET 975 MG PO (21:29)
[2025-03-31] MEDS: Acetaminophen 325 MG TABLET 650 MG PO (00:07)
[2025-03-31] MEDS: hydrOXYzine HCL 25 MG TABLET PO (00:07)
[2025-03-31] MEDS: Artificial Tears 15 ML DROPS 1 DROP EYE-BOTH ×3 (03:57→21:15)
[2025-03-31] MEDS: Levothyroxine Sodium 150 MCG TABLET PO (06:05)
[2025-03-31 07:57] LABS: Glucose, Whole Blood 248 mg/dL (60-115)
[2025-03-31] MEDS: Insulin Lispro 100 UNIT/ML 3 ML VIAL SUBCUT ×2 (08:42→12:20)
[2025-03-31 08:43] VITALS: BP 133/62
[2025-03-31] MEDS: QUEtiapine Fumarate 200 MG TABLET PO ×2 (08:43→21:23)
[2025-03-31] MEDS: QUEtiapine Fumarate 100 MG TABLET PO (08:43)
[2025-03-31] MEDS: Spironolactone 25 MG TABLET PO (08:43)
[2025-03-31] MEDS: Nitrofurantoin Monohyd/M-Cryst 100 MG CAPSULE PO ×2 (08:43→21:22)
[2025-03-31 08:44] VITALS: BP 133/62
[2025-03-31] MEDS: Sacubitril/Valsartan 24/26 1 TAB TABLET PO ×2 (08:44→21:24)
[2025-03-31] MEDS: Amiodarone HCL 200 MG TABLET PO (08:44)
[2025-03-31 08:45] VITALS: BP 133/62; PULSE 67
[2025-03-31] MEDS: Cholecalciferol (Vitamin D3) 25 MCG TABLET PO (08:45)
[2025-03-31] MEDS: Metoprolol Tartrate 25 MG TABLET 75 MG PO ×2 (08:45→21:22)
[2025-03-31] MEDS: Furosemide 40 MG TABLET PO (08:45)
[2025-03-31 08:50] VITALS: BP 133/62; PULSE 67; RESP 20; TEMP 36.3; O2SAT 96
[2025-03-31] MEDS: glipiZIDE 5 MG TABLET 2.5 MG PO (08:53)
--- NOTE | 2025-03-31 09:57 | HO.PSYCHPN ---
Subjective Subjective Date of Service: 03/31/25 Reason For Visit: chau Subjective Notes: Conditional Voluntary Interim History: Patient was seen and discussed in rounds today. Records and plans were reviewed. She has been doing better and has been more compliant. She has been taking her insulin. Continues to have paranoia and delusions. Eating and sleeping well. Blood sugar was 285 last. No changes were made today Review of Systems Review of Systems Yes all other systems are reviewed and are negative Mental Status Exam Mental Status Exam Narrative: Appearance: Casually dressed Behavior: Calm and cooperative throughout the interview. Eye contact is appropriate, and there are no signs of psychomotor agitation or retardation Speech: Normal volume and prosody Thought process logical and goal-directed Thought content: No self-harming thoughts Mood: good Affect: Full, mood-congruent SI:denies HI:denies VH/AH:none Delusions: paranoid delusions Insight/judgment: Fair insight and judgment Memory/cog: Alert, oriented x 4. grossly intact to conversational testing Diagnostics Vital Signs (24Hr): Vital Signs - 24 hr 03/30/25 19:46 03/31/25 08:43 03/31/25 08:44 Temperature 97.8 F Pulse Rate 75 Blood Pressure 112/64 133/62 133/62 Pulse Oximetry 97 Oxygen Delivery Method Room Air 03/31/25 08:45 03/31/25 08:45 Temperature Pulse Rate 67 Blood Pressure 133/62 133/62 Pulse Oximetry Oxygen Delivery Method BMI result Body Mass Index 44.5 Labs 03/23/25 08:01 03/27/25 08:00 Labs: Laboratory Results - last 48 hr 03/29/25 03/29/25 03/29/25 11:33 17:12 21:13 POC Glucose 186 H 203 H 224 H 03/30/25 03/30/25 03/30/25 07:46 12:09 17:21 POC Glucose 244 H 143 H 174 H 03/30/25 03/31/25 20:50 07:52 POC Glucose 285 H 248 H Medications Medications Current Medications Acetaminophen (Acetaminophen 325 Mg Tablet) 975 mg PO DAILY PRN PRN Reason: Pain Last Admin: 03/30/25 21:29 Dose: 975 mg Acetaminophen (Acetaminophen 325 Mg Tablet) 650 mg PO Q6H PRN PRN Reason: Headache/Pain, Scale 1-10 Last Admin: 03/31/25 00:07 Dose: 650 mg Al Hydroxide/Mg Hydroxide (Magnesium Hydrox/Alum Hydrox 30 Ml Oral.Susp) 30 ml PO Q6H PRN PRN Reason: Heartburn/Nausea Amiodarone HCl (Amiodarone Hcl 200 Mg Tablet) 200 mg PO DAILY [facility] Last Admin: 03/31/25 08:44 Dose: 200 mg Artificial Tears (Artificial Tears 15 Ml Drops) 1 drop EYE-BOTH TID [facility] Last Admin: 03/31/25 03:57 Dose: 1 drop Dextrose (Dextrose 50 % 25 Gm/50 Ml Syringe) 25 gm IVPUSH Q15M PRN; Protocol PRN Reason: per Hypoglycemia Standing Ord. Furosemide (Furosemide 40 Mg Tablet) 40 mg PO DAILY [facility]; Protocol Last Admin: 03/31/25 08:45 Dose: 40 mg Glipizide (Glipizide 5 Mg Tablet) 2.5 mg PO DAILY [facility] Last Admin: 03/31/25 08:53 Dose: 2.5 mg Glucose (Glucose Gel 15 Gm Gel..Gram.) 15 gm PO Q15M PRN; Protocol PRN Reason: per Hypoglycemia Standing Ord. Hydroxyzine HCl (Hydroxyzine Hcl 25 Mg Tablet) 25 mg PO Q6H PRN PRN Reason: mild anxiety Last Admin: 03/31/25 00:07 Dose: 25 mg Insulin Human Lispro (Insulin Lispro 100 Unit/Ml 3 Ml Vial) 0 unit SUBCUT QIDACHS [facility]; Protocol Last Admin: 03/31/25 08:42 Dose: 4 unit Levothyroxine Sodium (Levothyroxine Sodium 150 Mcg Tablet) 150 mcg PO DAILY@0600 [facility] Last Admin: 03/31/25 06:05 Dose: 150 mcg Magnesium Hydroxide (Milk Of Magnesia 30 Ml Oral.Susp) 30 ml PO DAILY PRN PRN Reason: Constipation Metoprolol Tartrate (Metoprolol Tartrate 25 Mg Tablet) 75 mg PO BID [facility]; Protocol Last Admin: 03/31/25 08:45 Dose: 75 mg Nicotine (Nicotine 21 Mg Patch.Td24) 21 mg TRANSDERMA DAILY PRN PRN Reason: smoking cessation Nicotine Polacrilex (Nicotine Polacrilex 2 Mg Gum) 4 mg BUCCAL Q2H PRN PRN Reason: Nicotine Cravings Nitrofurantoin Macrocrystals (Nitrofurantoin Monohyd/M-Cryst 100 Mg Capsule) 100 mg PO Q12H [facility] Stop: 04/01/25 08:59 Last Admin: 03/31/25 08:43 Dose: 100 mg Olanzapine (Olanzapine 5 Mg Tablet) 5 mg PO TID PRN PRN Reason: agitation Last Admin: 03/30/25 01:31 Dose: 5 mg Quetiapine Fumarate (Quetiapine Fumarate 100 Mg Tablet) 100 mg PO DAILY [facility] Last Admin: 03/31/25 08:43 Dose: 100 mg Quetiapine Fumarate (Quetiapine Fumarate 200 Mg Tablet) 200 mg PO BID [facility] Last Admin: 03/31/25 08:43 Dose: 200 mg Rivaroxaban (Rivaroxaban 20 Mg Tablet) 20 mg PO DAILY@1700 [facility] Last Admin: 03/30/25 17:28 Dose: 20 mg Sacubitril/Valsartan (Sacubitril/Valsartan 1 Tab Tablet) 1 tab PO BID [facility]; Protocol Last Admin: 03/31/25 08:44 Dose: 1 tab Spironolactone (Spironolactone 25 Mg Tablet) 25 mg PO DAILY [facility]; Protocol Last Admin: 03/31/25 08:43 Dose: 25 mg Trazodone HCl (Trazodone Hcl 100 Mg Tablet) 200 mg PO BEDTIME [facility] Last Admin: 03/30/25 21:21 Dose: 200 mg Trazodone HCl (Trazodone Hcl 25 Mg Halftab) 25 mg PO BEDTIME [facility] Last Admin: 03/30/25 21:21 Dose: 25 mg Vitamin D (Cholecalciferol (Vitamin D3) 25 Mcg Tablet) 25 mcg PO DAILY [facility] Last Admin: 03/31/25 08:45 Dose: 25 mcg Allergies Allergies Allergy/AdvReac Type Severity Reaction Status Date / Time divalproex sodium Allergy Mild diarrhea, Verified 03/23/25 07:44 [From Depakote] brain fog gluten Allergy Mild Unknown Verified 03/23/25 07:44 hazelnut Allergy Unknown Unknown Verified 01/15/25 10:01 shellfish derived Allergy Unknown Unknown Verified 01/15/25 10:01 sesame seeds Allergy Unknown Unknown Uncoded 01/15/25 10:01 Assessment & Plan Assessment & Plan (1) Bipolar 1 disorder: Status: Acute Code(s): F31.9 - Bipolar disorder, unspecified Plan 69-year-old female with past medical history of bipolar, PTSD, AFib, hypothyroidism, hypertension, LBBB, presented to [facility] via ambulance on 03/23/2025 for chau, paranoia, and auditory hallucinations. She notes that she had a verbal altercation immediately before presenting to the ED. She states that she received the call from her psychiatrist who inform her that she was returning a call regarding a voicemail she received from their home; the voicemail noted that the patient has not been sleeping and needed more medications. The patient inform her psychiatrist that she was unaware of the call which her may have made. She states that her is in charge of administering her medications and was giving her more of her medications than prescribed, and made her groggy. Therefore, she came the trazodone, without knowledge, and was not on the medication for 3 days; however, she slept adequately. Also, was upset after she recently told him she decided not to go to the appointment with the director of the home regarding her plan for cremation and that she change her MOLST from DNR to full code. She notes that her is controlling and does not want her to make decisions about her life. Therefore, she did some research on the Internet and confirmed that her has been a narcissist for the 30 years they been together. As the verbal altercation regarding her 's voicemail to her psychiatrist, which she was unaware of, escalated, the patient has called and asked her daughter to call 911, and she did. Patient was brought to the emergency department. She notes that she sleeps an average of 4-6 hours nightly. Sometimes, she would be awake, and not fall asleep at all, for 1-2 days; however, she does not recall the last time that happened. Per CARE team report, patient's reported that the patient had not slept for 3-4 days and stopped taking her psychotropic medications for about 3 weeks; there is a significant decline in her functioning. Patient denies SI, HI, AVH. She denies drugs or alcohol use. U tox was negative. BAL is 13. Formulation/Clinical reasoning: Bipolar 1 disorder with manic episode: Likely due to not taking her medications for about 3 weeks, leading to significant decline, including chau, paranoia, and functional impairment. Will continue current treatment regimen for now and will make adjustment as needed. She currently has UTI which may also contribute to her mental declines; she is currently treated with cefuroxime which is resistant to the current causative bacteria; will discontinue so fluoxetine and start nitrofurantoin for UTI. Hospital course: 03/28: Patient notes that she is in a good mood today. She had been taking her medications as prescribed. Her daughter is visiting and present. She notes that she slept last night. She denies SI/HI/AH/VH. Her daughter told elementary school social worker that she was very concerned about the patient who went to the bank in her nightgown and transferred 4000 dollars from her 's account into hers. She was subsequently brought home by the police from her friend's home. Continue current treatment regimen. 03/29 remains plesant but paranoid; will continue to see if restarting home regimen will be enough to bring her back to baseline; if not, will either increase doses or augment -may do better on Jamie Plan Admit to M5. CV 15 minutes check. Diagnostics as needed. Collateral contact. Continue remainder of regime. Encouraged full milieu. Discharge planning. 03/30: Continue current regimen and plans. 03/31: Continue current regimen and plans. Reason for continued inpatient stay Substantial Risk for: med/psych decompensation Time Spent With Patient Time: Total time managing care of this patient today ____ minutes.
[2025-03-31 11:37] LABS: Glucose, Whole Blood 158 mg/dL (60-115)
[2025-03-31 16:48] LABS: Glucose, Whole Blood 144 mg/dL (60-115)
[2025-03-31] MEDS: Rivaroxaban 20 MG TABLET PO (17:20)
[2025-03-31 20:00] VITALS: BP 117/55; PULSE 75; TEMP 36.4; O2SAT 96
[2025-03-31] MEDS: traZODone HCL 100 MG TABLET 200 MG PO (21:24)
[2025-03-31] MEDS: traZODone HCL 25 MG HALFTAB PO (21:24)
[2025-03-31] MEDS: OLANZapine 5 MG TABLET PO (21:25)
[2025-03-31 21:47] LABS: Glucose, Whole Blood 164 mg/dL (60-115)
[2025-04-01] MEDS: Acetaminophen 325 MG TABLET 650 MG PO (00:10)
[2025-04-01] MEDS: Levothyroxine Sodium 150 MCG TABLET PO (06:12)
[2025-04-01 08:00] VITALS: BP 122/58; PULSE 64; RESP 18; TEMP 36.3; O2SAT 17
[2025-04-01 08:08] LABS: Glucose, Whole Blood 254 mg/dL (60-115)
[2025-04-01] MEDS: QUEtiapine Fumarate 100 MG TABLET PO (09:27)
[2025-04-01] MEDS: Insulin Lispro 100 UNIT/ML 3 ML VIAL SUBCUT ×3 (09:27→20:49)
[2025-04-01] MEDS: Sacubitril/Valsartan 24/26 1 TAB TABLET PO (09:27)
[2025-04-01] MEDS: hydrOXYzine HCL 25 MG TABLET PO (09:27)
[2025-04-01] MEDS: QUEtiapine Fumarate 200 MG TABLET PO ×2 (09:27→20:33)
[2025-04-01] MEDS: OLANZapine 5 MG TABLET PO (09:27)
[2025-04-01] MEDS: Spironolactone 25 MG TABLET PO (09:27)
[2025-04-01] MEDS: Artificial Tears 15 ML DROPS 1 DROP EYE-BOTH ×3 (09:28→20:32)
[2025-04-01] MEDS: Metoprolol Tartrate 25 MG TABLET 75 MG PO (09:28)
[2025-04-01] MEDS: glipiZIDE 5 MG TABLET 2.5 MG PO (09:28)
[2025-04-01] MEDS: Amiodarone HCL 200 MG TABLET PO (09:28)
[2025-04-01] MEDS: Cholecalciferol (Vitamin D3) 25 MCG TABLET PO (09:29)
[2025-04-01] MEDS: Furosemide 40 MG TABLET PO (09:29)
[2025-04-01 12:23] LABS: Glucose, Whole Blood 147 mg/dL (60-115)
[2025-04-01 16:59] LABS: Glucose, Whole Blood 164 mg/dL (60-115)
[2025-04-01] MEDS: Rivaroxaban 20 MG TABLET PO (17:26)
--- NOTE | 2025-04-01 18:59 | P.PNPSI_ITS ---
Subjective Subjective Date of Service: 04/01/25 Reason For Visit: chau Interim History: met with patient; discussed with team pt feeling differently about her , talking w/ him on the phone; she asked marketing copywriter change his status, saying she now wants him to come and visit her and wants to receive phone calls from from him. Mental Status Exam Mental Status Exam Narrative: Appearance: Casually dressed Behavior: Calm and cooperative throughout the interview. Eye contact is appropriate, and there are no signs of psychomotor agitation or retardation Speech: Normal volume and prosody Thought process logical and goal-directed Thought content: No self-harming thoughts Mood: good Affect: Full, mood-congruent SI:denies HI:denies VH/AH:none Delusions: paranoid delusions, but some improvement Insight/judgment: Impaired Diagnostics Vital Signs (24Hr): Vital Signs - 24 hr 03/31/25 20:00 04/01/25 08:00 Temperature 97.6 F 97.3 F Pulse Rate 75 64 Respiratory Rate 18 Blood Pressure 117/55 L 122/58 L Pulse Oximetry 96 17 L Oxygen Delivery Method Room Air Room Air BMI result Body Mass Index 44.5 Labs 03/23/25 08:01 03/27/25 08:00 Labs: Laboratory Results - last 48 hr 03/30/25 03/31/25 03/31/25 20:50 07:52 11:34 POC Glucose 285 H 248 H 158 H 03/31/25 03/31/25 04/01/25 16:44 21:40 08:05 POC Glucose 144 H 164 H 254 H 04/01/25 04/01/25 12:19 16:53 POC Glucose 147 H 164 H Medications Medications Current Medications Acetaminophen (Acetaminophen 325 Mg Tablet) 975 mg PO DAILY PRN PRN Reason: Pain Last Admin: 03/30/25 21:29 Dose: 975 mg Acetaminophen (Acetaminophen 325 Mg Tablet) 650 mg PO Q6H PRN PRN Reason: Headache/Pain, Scale 1-10 Last Admin: 04/01/25 00:10 Dose: 650 mg Al Hydroxide/Mg Hydroxide (Magnesium Hydrox/Alum Hydrox 30 Ml Oral.Susp) 30 ml PO Q6H PRN PRN Reason: Heartburn/Nausea Amiodarone HCl (Amiodarone Hcl 200 Mg Tablet) 200 mg PO DAILY [facility] Last Admin: 06/02/25 09:28 Dose: 200 mg Artificial Tears (Artificial Tears 15 Ml Drops) 1 drop EYE-BOTH TID [facility] Last Admin: 04/01/25 15:25 Dose: 1 drop Dextrose (Dextrose 50 % 25 Gm/50 Ml Syringe) 25 gm IVPUSH Q15M PRN; Protocol PRN Reason: per Hypoglycemia Standing Ord. Furosemide (Furosemide 40 Mg Tablet) 40 mg PO DAILY [facility]; Protocol Last Admin: 04/01/25 09:29 Dose: 40 mg Glipizide (Glipizide 5 Mg Tablet) 2.5 mg PO DAILY [facility] Last Admin: 04/01/25 09:28 Dose: 2.5 mg Glucose (Glucose Gel 15 Gm Gel..Gram.) 15 gm PO Q15M PRN; Protocol PRN Reason: per Hypoglycemia Standing Ord. Hydroxyzine HCl (Hydroxyzine Hcl 25 Mg Tablet) 25 mg PO Q6H PRN PRN Reason: mild anxiety Last Admin: 04/01/25 09:27 Dose: 25 mg Insulin Human Lispro (Insulin Lispro 100 Unit/Ml 3 Ml Vial) 0 unit SUBCUT QIDACHS [facility]; Protocol Last Admin: 04/01/25 16:25 Dose: 2 unit Levothyroxine Sodium (Levothyroxine Sodium 150 Mcg Tablet) 150 mcg PO DAILY@0600 [facility] Last Admin: 04/01/25 06:12 Dose: 150 mcg Magnesium Hydroxide (Milk Of Magnesia 30 Ml Oral.Susp) 30 ml PO DAILY PRN PRN Reason: Constipation Metoprolol Tartrate (Metoprolol Tartrate 25 Mg Tablet) 75 mg PO BID [facility]; Protocol Last Admin: 04/01/25 09:28 Dose: 75 mg Nicotine (Nicotine 21 Mg Patch.Td24) 21 mg TRANSDERMA DAILY PRN PRN Reason: smoking cessation Nicotine Polacrilex (Nicotine Polacrilex 2 Mg Gum) 4 mg BUCCAL Q2H PRN PRN Reason: Nicotine Cravings Olanzapine (Olanzapine 5 Mg Tablet) 5 mg PO TID PRN PRN Reason: agitation Last Admin: 04/01/25 09:27 Dose: 5 mg Quetiapine Fumarate (Quetiapine Fumarate 100 Mg Tablet) 100 mg PO DAILY [facility] Last Admin: 04/01/25 09:27 Dose: 100 mg Quetiapine Fumarate (Quetiapine Fumarate 200 Mg Tablet) 200 mg PO BID [facility] Last Admin: 04/01/25 09:27 Dose: 200 mg Rivaroxaban (Rivaroxaban 20 Mg Tablet) 20 mg PO DAILY@1700 [facility] Last Admin: 04/01/25 17:26 Dose: 20 mg Sacubitril/Valsartan (Sacubitril/Valsartan 1 Tab Tablet) 1 tab PO BID [facility]; Protocol Last Admin: 04/01/25 09:27 Dose: 1 tab Spironolactone (Spironolactone 25 Mg Tablet) 25 mg PO DAILY [facility]; Protocol Last Admin: 04/01/25 09:27 Dose: 25 mg Trazodone HCl (Trazodone Hcl 100 Mg Tablet) 200 mg PO BEDTIME [facility] Last Admin: 03/31/25 21:24 Dose: 200 mg Trazodone HCl (Trazodone Hcl 25 Mg Halftab) 25 mg PO BEDTIME [facility] Last Admin: 03/31/25 21:24 Dose: 25 mg Vitamin D (Cholecalciferol (Vitamin D3) 25 Mcg Tablet) 25 mcg PO DAILY [facility] Last Admin: 04/01/25 09:29 Dose: 25 mcg Allergies Allergies Allergy/AdvReac Type Severity Reaction Status Date / Time divalproex sodium Allergy Mild diarrhea, Verified 03/23/25 07:44 [From Depakote] brain fog gluten Allergy Mild Unknown Verified 03/23/25 07:44 hazelnut Allergy Unknown Unknown Verified 01/15/25 10:01 shellfish derived Allergy Unknown Unknown Verified 01/15/25 10:01 sesame seeds Allergy Unknown Unknown Uncoded 01/15/25 10:01 Assessment & Plan Assessment & Plan (1) Bipolar 1 disorder: Status: Acute Code(s): F31.9 - Bipolar disorder, unspecified Plan 69-year-old female with past medical history of bipolar, PTSD, AFib, hypothyroidism, hypertension, LBBB, presented to [facility] ED via ambulance on 03/23/2025 for chau, paranoia, and auditory hallucinations. She notes that she had a verbal altercation immediately before presenting to the ED. She states that she received the call from her psychiatrist who inform her that she was returning a call regarding a voicemail she received from their home; the voicemail noted that the patient has not been sleeping and needed more medications. The patient inform her psychiatrist that she was unaware of the call which her may have made. She states that her is in charge of administering her medications and was giving her more of her medications than prescribed, and made her groggy. Therefore, she came the trazodone, without knowledge, and was not on the medication for 3 days; however, she slept adequately. Also, was upset after she recently told him she decided not to go to the appointment with the director of the home regarding her plan for cremation and that she change her MOLST from DNR to full code. She notes that her is controlling and does not want her to make decisions about her life. Therefore, she did some research on the Internet and confirmed that her has been a narcissist for the 30 years they been together. As the verbal altercation regarding her 's voicemail to her psychiatrist, which she was unaware of, escalated, the patient has called and asked her daughter to call 911, and she did. Patient was brought to the emergency department. She notes that she sleeps an average of 4-6 hours nightly. Sometimes, she would be awake, and not fall asleep at all, for 1-2 days; however, she does not recall the last time that happened. Per CARE team report, patient's reported that the patient had not slept for 3-4 days and stopped taking her psychotropic medications for about 3 weeks; there is a significant decline in her functioning. Patient denies SI, HI, AVH. She denies drugs or alcohol use. U tox was negative. BAL is 13. Formulation/Clinical reasoning: Bipolar 1 disorder with manic episode: Likely due to not taking her medications for about 3 weeks, leading to significant decline, including chau, paranoia, and functional impairment. Will continue current treatment regimen for now and will make adjustment as needed. She currently has UTI which may also contribute to her mental declines; she is currently treated with cefuroxime which is resistant to the current causative bacteria; will discontinue so fluoxetine and start nitrofurantoin for UTI. Hospital course: 03/28: Patient notes that she is in a good mood today. She had been taking her medications as prescribed. Her daughter is visiting and present. She notes that she slept last night. She denies SI/HI/AH/VH. Her daughter told aids social worker that she was very concerned about the patient who went to the bank in her nightgown and transferred 4000 dollars from her 's account into hers. She was subsequently brought home by the police from her friend's home. Continue current treatment regimen. 03/29 remains plesant but paranoid; will continue to see if restarting home regimen will be enough to bring her back to baseline; if not, will either increase doses or augment -may do better on Jamie 03/30: Continue current regimen and plans. 03/31: Continue current regimen and plans. 04/01: some reduction in paranoia; pt feeling differently about her , talking w/ him on the phone; she asked marketing copywriter change his status, saying she now wants him to come and visit her and wants to receive phone calls from from him. -transfer to [facility] [place]; pt agrees Plan Admit to M5. CV 15 minutes check. Diagnostics as needed. Collateral contact. Continue remainder of regime. Encouraged full milieu. Discharge planning. Patient educated on: diagnosis Informed Consent: further education needed Reason for continued inpatient stay Substantial Risk for: rapid decompensation Time Spent With Patient Time: Total time managing care of this patient today ____ minutes.
--- NOTE | 2025-04-01 19:13 | MHC.EVENTN ---
Accepted in transfer from , She has been orientated to the unit and her roommate. She has been pleasant and cooperative. She was originally admitted for Paranoia. She believes that her was plotting against her with her psychiatrist. Her was talking with the psychiatrist about her change in her behaviors at home.
--- NOTE | 2025-04-01 19:24 | PC.NURSE ---
Bianca was transferred to [facility] Rm. [id number]
[2025-04-01 20:00] VITALS: BP 106/53; PULSE 67; RESP 16; TEMP 36.3; O2SAT 95
[2025-04-01] MEDS: traZODone HCL 25 MG HALFTAB PO (20:33)
[2025-04-01] MEDS: traZODone HCL 100 MG TABLET 200 MG PO (20:33)
[2025-04-01 20:50] VITALS: BP 106/53; PULSE 68
[2025-04-01 20:51] VITALS: BP 106/53
[2025-04-01 20:51] LABS: Glucose, Whole Blood 228 mg/dL (60-115)
[2025-04-02] MEDS: Levothyroxine Sodium 150 MCG TABLET PO (06:08)
[2025-04-02 06:59] LABS: Glucose, Whole Blood 217 mg/dL (60-115)
[2025-04-02 08:14] VITALS: BP 125/58; PULSE 76; RESP 18; TEMP 36.2; O2SAT 97
[2025-04-02] MEDS: QUEtiapine Fumarate 100 MG TABLET PO (08:25)
[2025-04-02] MEDS: Metoprolol Tartrate 25 MG TABLET 75 MG PO ×2 (08:25→21:07)
[2025-04-02] MEDS: glipiZIDE 5 MG TABLET 2.5 MG PO (08:26)
[2025-04-02] MEDS: Furosemide 40 MG TABLET PO (08:27)
[2025-04-02] MEDS: Cholecalciferol (Vitamin D3) 25 MCG TABLET PO (08:27)
[2025-04-02] MEDS: Sacubitril/Valsartan 24/26 1 TAB TABLET PO ×2 (08:27→21:06)
[2025-04-02] MEDS: QUEtiapine Fumarate 200 MG TABLET PO ×2 (08:27→21:07)
[2025-04-02] MEDS: Amiodarone HCL 200 MG TABLET PO (08:28)
[2025-04-02] MEDS: Spironolactone 25 MG TABLET PO (08:28)
[2025-04-02] MEDS: Artificial Tears 15 ML DROPS 1 DROP EYE-BOTH ×3 (08:34→21:06)
--- NOTE | 2025-04-02 09:26 | PM.EVENT ---
Event Note Date of Service: 04/02/25 Event Note: Patient's blood sugars continue to be elevated 140s to 50s. We will increase glipizide to 5 mg daily. Recent A1c increase to 7.9% from 7%. Continue to monitor Time Spent With Patient Time: Total time managing care of this patient today ____ minutes.
[2025-04-02 11:28] LABS: Glucose, Whole Blood 218 mg/dL (60-115)
[2025-04-02] MEDS: Insulin Lispro 100 UNIT/ML 3 ML VIAL SUBCUT ×3 (11:33→21:11)
[2025-04-02] MEDS: Acetaminophen 325 MG TABLET 975 MG PO (15:38)
--- NOTE | 2025-04-02 16:11 | P.PNPSI_ITS ---
Subjective Subjective Date of Service: 04/02/25 Reason For Visit: chau Subjective Notes: Conditional Voluntary Interim History: Pt reports she is here because of her bipolar . She reports that she confused what's real and what's not. She reports she has dealt with her illness for several years. She denies SI/HI. She is sleeping well. She has been visible on the unit. Less guarded towards . Review of Systems Review of Systems Musculoskeletal: Chronic low back and joints pain Yes all other systems are reviewed and are negative Constitutional: Reports as per [facility] Mental Status Exam Mental Status Exam Narrative: Appearance: Casually dressed Behavior: Calm and cooperative throughout the interview. Eye contact is appropriate, and there are no signs of psychomotor agitation or retardation Speech: Normal volume and prosody Thought process logical and goal-directed Thought content: No self-harming thoughts Mood: good Affect: Full, mood-congruent SI:denies HI:denies VH/AH:none Delusions: paranoid delusions, but some improvement Insight/judgment: Impaired Diagnostics Vital Signs (24Hr): Vital Signs - 24 hr 04/01/25 20:00 04/01/25 20:50 04/01/25 20:51 Temperature 97.3 F Pulse Rate 67 68 Respiratory Rate 16 Blood Pressure 106/53 L 106/53 L 106/53 L Pulse Oximetry 95 Oxygen Delivery Method Room Air 04/02/25 08:14 Temperature 97.1 F Pulse Rate 76 Respiratory Rate 18 Blood Pressure 125/58 L Pulse Oximetry 97 Oxygen Delivery Method Room Air BMI result Body Mass Index 44.5 Labs 03/23/25 08:01 03/27/25 08:00 Labs: Laboratory Results - last 48 hr 03/31/25 03/31/25 04/01/25 16:44 21:40 08:05 POC Glucose 144 H 164 H 254 H 04/01/25 04/01/25 04/01/25 12:19 16:53 20:30 POC Glucose 147 H 164 H 228 H 04/02/25 04/02/25 06:39 11:23 POC Glucose 217 H 218 H Medications Medications Current Medications Acetaminophen (Acetaminophen 325 Mg Tablet) 975 mg PO DAILY PRN PRN Reason: Pain Last Admin: 04/02/25 15:38 Dose: 975 mg Acetaminophen (Acetaminophen 325 Mg Tablet) 650 mg PO Q6H PRN PRN Reason: Headache/Pain, Scale 1-10 Last Admin: 04/01/25 00:10 Dose: 650 mg Al Hydroxide/Mg Hydroxide (Magnesium Hydrox/Alum Hydrox 30 Ml Oral.Susp) 30 ml PO Q6H PRN PRN Reason: Heartburn/Nausea Amiodarone HCl (Amiodarone Hcl 200 Mg Tablet) 200 mg PO DAILY [facility] Last Admin: 04/02/25 08:28 Dose: 200 mg Artificial Tears (Artificial Tears 15 Ml Drops) 1 drop EYE-BOTH TID [facility] Last Admin: 04/02/25 14:43 Dose: 1 drop Dextrose (Dextrose 50 % 25 Gm/50 Ml Syringe) 25 gm IVPUSH Q15M PRN; Protocol PRN Reason: per Hypoglycemia Standing Ord. Furosemide (Furosemide 40 Mg Tablet) 40 mg PO DAILY [facility]; Protocol Last Admin: 04/02/25 08:27 Dose: 40 mg Glipizide (Glipizide 5 Mg Tablet) 5 mg PO DAILY [facility] Glucose (Glucose Gel 15 Gm Gel..Gram.) 15 gm PO Q15M PRN; Protocol PRN Reason: per Hypoglycemia Standing Ord. Hydroxyzine HCl (Hydroxyzine Hcl 25 Mg Tablet) 25 mg PO Q6H PRN PRN Reason: mild anxiety Last Admin: 04/01/25 09:27 Dose: 25 mg Insulin Human Lispro (Insulin Lispro 100 Unit/Ml 3 Ml Vial) 0 unit SUBCUT QIDACHS [facility]; Protocol Last Admin: 04/02/25 11:33 Dose: 4 unit Levothyroxine Sodium (Levothyroxine Sodium 150 Mcg Tablet) 150 mcg PO DAILY@0600 [facility] Last Admin: 04/02/25 06:08 Dose: 150 mcg Magnesium Hydroxide (Milk Of Magnesia 30 Ml Oral.Susp) 30 ml PO DAILY PRN PRN Reason: Constipation Metoprolol Tartrate (Metoprolol Tartrate 25 Mg Tablet) 75 mg PO BID [facility]; Protocol Last Admin: 04/02/25 08:25 Dose: 75 mg Nicotine (Nicotine 21 Mg Patch.Td24) 21 mg TRANSDERMA DAILY PRN PRN Reason: smoking cessation Nicotine Polacrilex (Nicotine Polacrilex 2 Mg Gum) 4 mg BUCCAL Q2H PRN PRN Reason: Nicotine Cravings Olanzapine (Olanzapine 5 Mg Tablet) 5 mg PO TID PRN PRN Reason: agitation Last Admin: 04/01/25 09:27 Dose: 5 mg Quetiapine Fumarate (Quetiapine Fumarate 100 Mg Tablet) 100 mg PO DAILY [facility] Last Admin: 04/02/25 08:25 Dose: 100 mg Quetiapine Fumarate (Quetiapine Fumarate 200 Mg Tablet) 200 mg PO BID [facility] Last Admin: 04/02/25 08:27 Dose: 200 mg Rivaroxaban (Rivaroxaban 20 Mg Tablet) 20 mg PO DAILY@1700 [facility] Last Admin: 04/01/25 17:26 Dose: 20 mg Sacubitril/Valsartan (Sacubitril/Valsartan 1 Tab Tablet) 1 tab PO BID [facility]; Protocol Last Admin: 04/02/25 08:27 Dose: 1 tab Spironolactone (Spironolactone 25 Mg Tablet) 25 mg PO DAILY [facility]; Protocol Last Admin: 04/02/25 08:28 Dose: 25 mg Trazodone HCl (Trazodone Hcl 100 Mg Tablet) 200 mg PO BEDTIME [facility] Last Admin: 04/01/25 20:33 Dose: 200 mg Trazodone HCl (Trazodone Hcl 25 Mg Halftab) 25 mg PO BEDTIME [facility] Last Admin: 04/01/25 20:33 Dose: 25 mg Vitamin D (Cholecalciferol (Vitamin D3) 25 Mcg Tablet) 25 mcg PO DAILY [facility] Last Admin: 04/02/25 08:27 Dose: 25 mcg Allergies Allergies Allergy/AdvReac Type Severity Reaction Status Date / Time divalproex sodium Allergy Mild diarrhea, Verified 03/23/25 07:44 [From Depakote] brain fog gluten Allergy Mild Unknown Verified 03/23/25 07:44 hazelnut Allergy Unknown Unknown Verified 01/15/25 10:01 shellfish derived Allergy Unknown Unknown Verified 01/15/25 10:01 sesame seeds Allergy Unknown Unknown Uncoded 01/15/25 10:01 Assessment & Plan Assessment & Plan (1) Bipolar 1 disorder: Status: Acute Code(s): F31.9 - Bipolar disorder, unspecified Plan 69-year-old female with past medical history of bipolar, PTSD, AFib, hypothyroidism, hypertension, LBBB, presented to [facility] via ambulance on 03/23/2025 for chau, paranoia, and auditory hallucinations. She notes that she had a verbal altercation immediately before presenting to the ED. She states that she received the call from her psychiatrist who inform her that she was returning a call regarding a voicemail she received from their home; the voicemail noted that the patient has not been sleeping and needed more medications. The patient inform her psychiatrist that she was unaware of the call which her may have made. She states that her is in charge of administering her medications and was giving her more of her medications than prescribed, and made her groggy. Therefore, she came the trazodone, without knowledge, and was not on the medication for 3 days; however, she slept adequately. Also, was upset after she recently told him she decided not to go to the appointment with the director of the home regarding her plan for cremation and that she change her MOLST from DNR to full code. She notes that her is controlling and does not want her to make decisions about her life. Therefore, she did some research on the Internet and confirmed that her has been a narcissist for the 30 years they been together. As the verbal altercation regarding her 's voicemail to her psychiatrist, which she was unaware of, escalated, the patient has called and asked her daughter to call 911, and she did. Patient was brought to the emergency department. She notes that she sleeps an average of 4-6 hours nightly. Sometimes, she would be awake, and not fall asleep at all, for 1-2 days; however, she does not recall the last time that happened. Per CARE team report, patient's reported that the patient had not slept for 3-4 days and stopped taking her psychotropic medications for about 3 weeks; there is a significant decline in her functioning. Patient denies SI, HI, AVH. She denies drugs or alcohol use. U tox was negative. BAL is 13. Formulation/Clinical reasoning: Bipolar 1 disorder with manic episode: Likely due to not taking her medications for about 3 weeks, leading to significant decline, including chau, paranoia, and functional impairment. Will continue current treatment regimen for now and will make adjustment as needed. She currently has UTI which may also contribute to her mental declines; she is currently treated with cefuroxime which is resistant to the current causative bacteria; will discontinue so fluoxetine and start nitrofurantoin for UTI. Hospital course: 03/28: Patient notes that she is in a good mood today. She had been taking her medications as prescribed. Her daughter is visiting and present. She notes that she slept last night. She denies SI/HI/AH/VH. Her daughter told social worker masters that she was very concerned about the patient who went to the bank in her nightgown and transferred 4000 dollars from her 's account into hers. She was subsequently brought home by the police from her friend's home. Continue current treatment regimen. 03/29 remains plesant but paranoid; will continue to see if restarting home regimen will be enough to bring her back to baseline; if not, will either increase doses or augment -may do better on Jamie 03/30: Continue current regimen and plans. 03/31: Continue current regimen and plans. 04/01: some reduction in paranoia; pt feeling differently about her , talking w/ him on the phone; she asked keno writer / runner change his status, saying she now wants him to come and visit her and wants to receive phone calls from from him. -transfer to [facility]; pt agrees 04/02 continue tx. will check EKG given qtc prolonging meds and hx of qtc prolongation. Plan Admit to M5. CV 15 minutes check. Diagnostics as needed. Collateral contact. Continue remainder of regime. Encouraged full milieu. Discharge planning. Reason for continued inpatient stay Substantial Risk for: inability to function Time Spent With Patient Time: Total time managing care of this patient today ____ minutes.
[2025-04-02 16:21] LABS: Glucose, Whole Blood 190 mg/dL (60-115)
[2025-04-02] MEDS: Rivaroxaban 20 MG TABLET PO (16:31)
[2025-04-02 20:00] VITALS: BP 122/88; PULSE 68; RESP 16; TEMP 36.4; O2SAT 95
[2025-04-02 20:03] LABS: Glucose, Whole Blood 194 mg/dL (60-115)
[2025-04-02 21:06] VITALS: BP 122/88
[2025-04-02 21:07] VITALS: BP 122/88; PULSE 68
[2025-04-02] MEDS: traZODone HCL 25 MG HALFTAB PO (21:07)
[2025-04-02] MEDS: traZODone HCL 100 MG TABLET 200 MG PO (21:07)
--- NOTE | 2025-04-03 | ECG_ITS ---
Test Reason : HX QTC PROLONGNATION Blood Pressure : */* mmHG Vent. Rate : 63 BPM Atrial Rate : 63 BPM P-R Int : 212 ms QRS Dur : 138 ms QT Int : 492 ms P-R-T Axes : 76 -35 98 degrees QTcB Int : 503 ms Sinus rhythm with 1st degree A-V block Left axis deviation Non-specific intra-ventricular conduction block Minimal voltage criteria for LVH, may be normal variant ( Thatcher product ) Cannot rule out Anterior infarct (cited on or before 26-Mar-2025) Abnormal ECG When compared with ECG of 26-Mar-2025 09:34, No significant change was found Referred By: Jennifer Puentes Electronically Signed By: VAIBHAV CHRIS
[2025-04-03] MEDS: Levothyroxine Sodium 150 MCG TABLET PO (05:59)
[2025-04-03] MEDS: Artificial Tears 15 ML DROPS 1 DROP EYE-BOTH ×3 (06:08→20:38)
[2025-04-03 06:44] LABS: Glucose, Whole Blood 185 mg/dL (60-115)
[2025-04-03] MEDS: Insulin Lispro 100 UNIT/ML 3 ML VIAL SUBCUT ×3 (07:49→20:38)
[2025-04-03 09:00] VITALS: BP 148/67; PULSE 68; RESP 18; TEMP 36.3; O2SAT 96
[2025-04-03 09:01] VITALS: BP 148/67; PULSE 68
[2025-04-03] MEDS: Sacubitril/Valsartan 24/26 1 TAB TABLET PO ×2 (09:01→20:37)
[2025-04-03] MEDS: Metoprolol Tartrate 25 MG TABLET 75 MG PO ×2 (09:01→20:37)
[2025-04-03 09:02] VITALS: BP 148/67
[2025-04-03] MEDS: Amiodarone HCL 200 MG TABLET PO (09:02)
[2025-04-03] MEDS: Cholecalciferol (Vitamin D3) 25 MCG TABLET PO (09:02)
[2025-04-03] MEDS: Furosemide 40 MG TABLET PO (09:02)
[2025-04-03] MEDS: QUEtiapine Fumarate 200 MG TABLET PO ×2 (09:02→20:37)
[2025-04-03 09:03] VITALS: BP 148/67
[2025-04-03] MEDS: Spironolactone 25 MG TABLET PO (09:03)
[2025-04-03] MEDS: glipiZIDE 5 MG TABLET PO (09:03)
[2025-04-03] MEDS: QUEtiapine Fumarate 100 MG TABLET PO (09:03)
[2025-04-03 11:13] LABS: Glucose, Whole Blood 190 mg/dL (60-115)
--- NOTE | 2025-04-03 12:45 | HO.PSYCHPN ---
Subjective Subjective Date of Service: 04/03/25 Reason For Visit: chau Medical Problems Affecting Mental Status: Yes Interim History: Pt seen, review with her team who report no concerns today. Pt reports feeling comfortable post M5 transfer. Alert, engaging, denies depressive/anxious sx. States she slept well. Meds are tolerated. Overall less paranoia, questioning her mistrust of family. Discussed her jain fran, beliefs and comfort in those. Identifies FRAN-[employer] [facility] [employer] [facility] as her grounding factor. EKG repeated. QTc remains elevated at 503 (506 initially). Will ask cardiology to see pt to advise. Medication Compliance: Yes Side effects from medications: No Attending Groups: Yes Review of Systems QTc prolongation Review of Systems Review of Systems Pt denies today Mental Status Exam Mental Status Exam Patient Appearance: Appropriate Patient Orientation: Person, Place, Time and Situation Level of Consciousness: Alert Patient Behavior: Appropriate, Talkative, Cooperative and Good Eye Contact Mood Description: Constricted Affect Description: Constricted Patient Cognition Impaired: No Ability to Follow Directions: Good Speech Pattern: Spontaneous Speech Memory Description: Episodic Impaired Hallucinations: None (denies) Delusions: Paranoid Ideation (questioning her ideas about family today) and Present Thought Process: Distracted Thought Content: positive for Circumstantial and positive for Suicidal Ideation (denies) Judgement: Fair Diagnostics Vital Signs (24Hr): Vital Signs - 24 hr 04/02/25 20:00 04/02/25 21:06 04/02/25 21:07 Temperature 97.5 F Pulse Rate 68 68 Respiratory Rate 16 Blood Pressure 122/88 122/88 122/88 Pulse Oximetry 95 Oxygen Delivery Method Room Air 04/03/25 09:00 04/03/25 09:01 04/03/25 09:01 Temperature 97.3 F Pulse Rate 68 68 Respiratory Rate 18 Blood Pressure 148/67 H 148/67 H 148/67 H Pulse Oximetry 96 Oxygen Delivery Method Room Air 04/03/25 09:02 04/03/25 09:03 Temperature Pulse Rate Respiratory Rate Blood Pressure 148/67 H 148/67 H Pulse Oximetry Oxygen Delivery Method BMI result Body Mass Index 44.5 Labs 03/23/25 08:01 03/27/25 08:00 Labs: Laboratory Results - last 48 hr 04/01/25 04/01/25 04/02/25 16:53 20:30 06:39 POC Glucose 164 H 228 H 217 H 04/02/25 04/02/25 04/02/25 11:23 16:17 19:58 POC Glucose 218 H 190 H 194 H 04/03/25 04/03/25 06:35 11:08 POC Glucose 185 H 190 H Medications Medications Current Medications Acetaminophen (Acetaminophen 325 Mg Tablet) 975 mg PO DAILY PRN PRN Reason: Pain Last Admin: 04/02/25 15:38 Dose: 975 mg Acetaminophen (Acetaminophen 325 Mg Tablet) 650 mg PO Q6H PRN PRN Reason: Headache/Pain, Scale 1-10 Last Admin: 04/01/25 00:10 Dose: 650 mg Al Hydroxide/Mg Hydroxide (Magnesium Hydrox/Alum Hydrox 30 Ml Oral.Susp) 30 ml PO Q6H PRN PRN Reason: Heartburn/Nausea Amiodarone HCl (Amiodarone Hcl 200 Mg Tablet) 200 mg PO DAILY [facility] Last Admin: 04/03/25 09:02 Dose: 200 mg Artificial Tears (Artificial Tears 15 Ml Drops) 1 drop EYE-BOTH TID [facility] Last Admin: 04/03/25 06:08 Dose: 1 drop Dextrose (Dextrose 50 % 25 Gm/50 Ml Syringe) 25 gm IVPUSH Q15M PRN; Protocol PRN Reason: per Hypoglycemia Standing Ord. Furosemide (Furosemide 40 Mg Tablet) 40 mg PO DAILY [facility]; Protocol Last Admin: 04/03/25 09:02 Dose: 40 mg Glipizide (Glipizide 5 Mg Tablet) 5 mg PO DAILY [facility] Last Admin: 04/03/25 09:03 Dose: 5 mg Glucose (Glucose Gel 15 Gm Gel..Gram.) 15 gm PO Q15M PRN; Protocol PRN Reason: per Hypoglycemia Standing Ord. Hydroxyzine HCl (Hydroxyzine Hcl 25 Mg Tablet) 25 mg PO Q6H PRN PRN Reason: mild anxiety Last Admin: 04/01/25 09:27 Dose: 25 mg Insulin Human Lispro (Insulin Lispro 100 Unit/Ml 3 Ml Vial) 0 unit SUBCUT QIDACHS [facility]; Protocol Last Admin: 04/03/25 11:19 Dose: 2 unit Levothyroxine Sodium (Levothyroxine Sodium 150 Mcg Tablet) 150 mcg PO DAILY@0600 [facility] Last Admin: 04/03/25 05:59 Dose: 150 mcg Magnesium Hydroxide (Milk Of Magnesia 30 Ml Oral.Susp) 30 ml PO DAILY PRN PRN Reason: Constipation Metoprolol Tartrate (Metoprolol Tartrate 25 Mg Tablet) 75 mg PO BID [facility]; Protocol Last Admin: 04/03/25 09:01 Dose: 75 mg Nicotine (Nicotine 21 Mg Patch.Td24) 21 mg TRANSDERMA DAILY PRN PRN Reason: smoking cessation Nicotine Polacrilex (Nicotine Polacrilex 2 Mg Gum) 4 mg BUCCAL Q2H PRN PRN Reason: Nicotine Cravings Olanzapine (Olanzapine 5 Mg Tablet) 5 mg PO TID PRN PRN Reason: agitation Last Admin: 04/01/25 09:27 Dose: 5 mg Quetiapine Fumarate (Quetiapine Fumarate 100 Mg Tablet) 100 mg PO DAILY [facility] Last Admin: 04/03/25 09:03 Dose: 100 mg Quetiapine Fumarate (Quetiapine Fumarate 200 Mg Tablet) 200 mg PO BID [facility] Last Admin: 04/03/25 09:02 Dose: 200 mg Rivaroxaban (Rivaroxaban 20 Mg Tablet) 20 mg PO DAILY@1700 [facility] Last Admin: 04/02/25 16:31 Dose: 20 mg Sacubitril/Valsartan (Sacubitril/Valsartan 1 Tab Tablet) 1 tab PO BID [facility]; Protocol Last Admin: 04/03/25 09:01 Dose: 1 tab Spironolactone (Spironolactone 25 Mg Tablet) 25 mg PO DAILY [facility]; Protocol Last Admin: 04/03/25 09:03 Dose: 25 mg Trazodone HCl (Trazodone Hcl 100 Mg Tablet) 200 mg PO BEDTIME [facility] Last Admin: 04/02/25 21:07 Dose: 200 mg Trazodone HCl (Trazodone Hcl 25 Mg Halftab) 25 mg PO BEDTIME [facility] Last Admin: 04/02/25 21:07 Dose: 25 mg Vitamin D (Cholecalciferol (Vitamin D3) 25 Mcg Tablet) 25 mcg PO DAILY [facility] Last Admin: 04/03/25 09:02 Dose: 25 mcg Allergies Allergies Allergy/AdvReac Type Severity Reaction Status Date / Time divalproex sodium Allergy Mild diarrhea, Verified 03/23/25 07:44 [From Depakote] brain fog gluten Allergy Mild Unknown Verified 03/23/25 07:44 hazelnut Allergy Unknown Unknown Verified 01/15/25 10:01 shellfish derived Allergy Unknown Unknown Verified 01/15/25 10:01 sesame seeds Allergy Unknown Unknown Uncoded 01/15/25 10:01 Assessment & Plan Assessment & Plan (1) Bipolar 1 disorder: Status: Acute Code(s): F31.9 - Bipolar disorder, unspecified Plan 69-year-old female with past medical history of bipolar, PTSD, AFib, hypothyroidism, hypertension, LBBB, presented to [facility] via ambulance on 03/23/2025 for chau, paranoia, and auditory hallucinations. She notes that she had a verbal altercation immediately before presenting to the ED. She states that she received the call from her psychiatrist who inform her that she was returning a call regarding a voicemail she received from their home; the voicemail noted that the patient has not been sleeping and needed more medications. The patient inform her psychiatrist that she was unaware of the call which her may have made. She states that her is in charge of administering her medications and was giving her more of her medications than prescribed, and made her groggy. Therefore, she came the trazodone, without knowledge, and was not on the medication for 3 days; however, she slept adequately. Also, was upset after she recently told him she decided not to go to the appointment with the director of the home regarding her plan for cremation and that she change her MOLST from DNR to full code. She notes that her is controlling and does not want her to make decisions about her life. Therefore, she did some research on the Internet and confirmed that her has been a narcissist for the 30 years they been together. As the verbal altercation regarding her 's voicemail to her psychiatrist, which she was unaware of, escalated, the patient has called and asked her daughter to call 911, and she did. Patient was brought to the emergency department. She notes that she sleeps an average of 4-6 hours nightly. Sometimes, she would be awake, and not fall asleep at all, for 1-2 days; however, she does not recall the last time that happened. Per CARE team report, patient's reported that the patient had not slept for 3-4 days and stopped taking her psychotropic medications for about 3 weeks; there is a significant decline in her functioning. Patient denies SI, HI, AVH. She denies drugs or alcohol use. U tox was negative. BAL is 13. Formulation/Clinical reasoning: Bipolar 1 disorder with manic episode: Likely due to not taking her medications for about 3 weeks, leading to significant decline, including chau, paranoia, and functional impairment. Will continue current treatment regimen for now and will make adjustment as needed. She currently has UTI which may also contribute to her mental declines; she is currently treated with cefuroxime which is resistant to the current causative bacteria; will discontinue so fluoxetine and start nitrofurantoin for UTI. Hospital course: 03/28: Patient notes that she is in a good mood today. She had been taking her medications as prescribed. Her daughter is visiting and present. She notes that she slept last night. She denies SI/HI/AH/VH. Her daughter told psychiatric social worker supervisor that she was very concerned about the patient who went to the bank in her nightgown and transferred 4000 dollars from her 's account into hers. She was subsequently brought home by the police from her friend's home. Continue current treatment regimen. 03/29 remains plesant but paranoid; will continue to see if restarting home regimen will be enough to bring her back to baseline; if not, will either increase doses or augment -may do better on Jamie 03/30: Continue current regimen and plans. 03/31: Continue current regimen and plans. 04/01: some reduction in paranoia; pt feeling differently about her , talking w/ him on the phone; she asked specification writer change his status, saying she now wants him to come and visit her and wants to receive phone calls from from him. -transfer to [facility]; pt agrees 04/02 continue tx. will check EKG given qtc prolonging meds and hx of qtc prolongation. 04/03 continue tx. QTc 503 (506 on admit) cardiology consult for guidance in proceeding with her care. Plan Admit to M5. CV 15 minutes check. Diagnostics as needed. Collateral contact. Continue remainder of regime. Encouraged full milieu. Discharge planning. Patient educated on: medication risk/benefits, therapeutic strategies and medical condition Reason for continued inpatient stay Substantial Risk for: rapid decompensation Time Spent With Patient Time: Total time managing care of this patient today ____ minutes.
[2025-04-03 16:18] LABS: Glucose, Whole Blood 133 mg/dL (60-115)
[2025-04-03] MEDS: Rivaroxaban 20 MG TABLET PO (17:27)
[2025-04-03 19:55] LABS: Glucose, Whole Blood 166 mg/dL (60-115)
[2025-04-03 20:00] VITALS: BP 136/62; PULSE 71; RESP 18; TEMP 36.8; O2SAT 95
[2025-04-03] MEDS: traZODone HCL 100 MG TABLET 200 MG PO (20:37)
[2025-04-03] MEDS: traZODone HCL 25 MG HALFTAB PO (20:38)
[2025-04-04] MEDS: Levothyroxine Sodium 150 MCG TABLET PO (06:08)
[2025-04-04 06:32] LABS: Glucose, Whole Blood 183 mg/dL (60-115)
[2025-04-04 08:00] VITALS: BP 127/58; PULSE 72; RESP 18; TEMP 36.9; O2SAT 95
[2025-04-04] MEDS: glipiZIDE 5 MG TABLET PO (08:55)
[2025-04-04] MEDS: Amiodarone HCL 200 MG TABLET PO (08:55)
[2025-04-04] MEDS: QUEtiapine Fumarate 200 MG TABLET PO (08:55)
[2025-04-04] MEDS: Sacubitril/Valsartan 24/26 1 TAB TABLET PO (08:55)
[2025-04-04] MEDS: QUEtiapine Fumarate 100 MG TABLET PO (08:55)
[2025-04-04] MEDS: Cholecalciferol (Vitamin D3) 25 MCG TABLET PO (08:56)
[2025-04-04] MEDS: Spironolactone 25 MG TABLET PO (08:56)
[2025-04-04] MEDS: Furosemide 40 MG TABLET PO (08:56)
[2025-04-04] MEDS: Metoprolol Tartrate 25 MG TABLET 75 MG PO (08:56)
[2025-04-04] MEDS: Artificial Tears 15 ML DROPS 1 DROP EYE-BOTH ×2 (09:00→15:19)
[2025-04-04 11:14] LABS: Glucose, Whole Blood 182 mg/dL (60-115)
[2025-04-04] MEDS: Insulin Lispro 100 UNIT/ML 3 ML VIAL SUBCUT ×2 (11:37→16:43)
--- NOTE | 2025-04-04 12:21 | HO.PSYCHPN ---
Subjective Subjective Date of Service: 04/04/25 Reason For Visit: chau Subjective Notes: Conditional Voluntary Interim History: Pt slept through the night. She continues to present with latter day delusions, thinking she does not need insulin for DM, that she is producing insulin and God has confirmed this to her along with research she has done on [employer]. She continues to report paranoid delusions of attempting to get rid of her because she suspects he is having affair with neighbor. She denies SI/HI. Review of Systems Review of Systems Pt denies today Yes all other systems are reviewed and are negative Constitutional: Reports as per HPI and Reports no additional constitutional complaints Eyes: Reports as per HPI and Denies no additional eye complaints Denies system reviewed and no additional complaints, except as documented and Reports as per HPI Cardiovascular: Reports as per HPI, Reports no additional cardiovascular complaints, Denies acrocyanosis, Denies cool extremities, Denies chest pain, Denies leg edema, Denies lightheadedness, Denies palpitations and Denies dyspnea Respiratory: Reports as per HPI, Denies no additional respiratory complaints and Denies dyspnea Gastrointestinal: Reports as per HPI and Denies no additional gastrointestinal complaints Musculoskeletal: Reports no additional musculoskeletal complaints and Reports as per HPI Skin/Breast: Reports system reviewed and no additional complaints, except as docu Reports system reviewed and no additional complaints, except as documented and Reports as per HPI Psychiatric: Reports no additional psychiatric complaints and Reports as per HPI Endocrine: Reports no additional endocrine complaints, Reports as per HPI and Denies palpitations Hematologic/Lymphatic: Reports no additional hematologic/lymphatic complaints and Reports as per HPI Allergic/Immunologic: Reports no additional allergic/immunologic complaints and Reports as per HPI Mental Status Exam Mental Status Exam Narrative: Appearance: Casually dressed Behavior: Calm and cooperative throughout the interview. Eye contact is appropriate, and there are no signs of psychomotor agitation or retardation Speech: Normal volume and prosody Thought process logical and goal-directed Thought content: No self-harming thoughts Mood: good Affect: Full, mood-congruent SI:denies HI:denies VH/AH:none Delusions: paranoid delusions, but some improvement Insight/judgment: Impaired Diagnostics Vital Signs (24Hr): Vital Signs - 24 hr 04/03/25 20:00 04/04/25 08:00 Temperature 98.2 F 98.4 F Pulse Rate 71 72 Respiratory Rate 18 18 Blood Pressure 136/62 127/58 L Pulse Oximetry 95 95 Oxygen Delivery Method Room Air Room Air BMI result Body Mass Index 44.5 Labs 03/23/25 08:01 03/27/25 08:00 Labs: Laboratory Results - last 48 hr 04/02/25 04/02/25 04/03/25 16:17 19:58 06:35 POC Glucose 190 H 194 H 185 H 04/03/25 04/03/25 04/03/25 11:08 16:05 19:46 POC Glucose 190 H 133 H 166 H 04/04/25 04/04/25 06:22 11:08 POC Glucose 183 H 182 H Medications Medications Current Medications Acetaminophen (Acetaminophen 325 Mg Tablet) 975 mg PO DAILY PRN PRN Reason: Pain Last Admin: 04/02/25 15:38 Dose: 975 mg Acetaminophen (Acetaminophen 325 Mg Tablet) 650 mg PO Q6H PRN PRN Reason: Headache/Pain, Scale 1-10 Last Admin: 04/01/25 00:10 Dose: 650 mg Al Hydroxide/Mg Hydroxide (Magnesium Hydrox/Alum Hydrox 30 Ml Oral.Susp) 30 ml PO Q6H PRN PRN Reason: Heartburn/Nausea Amiodarone HCl (Amiodarone Hcl 200 Mg Tablet) 200 mg PO DAILY [facility] Last Admin: 04/04/25 08:55 Dose: 200 mg Artificial Tears (Artificial Tears 15 Ml Drops) 1 drop EYE-BOTH TID [facility] Last Admin: 04/04/25 09:00 Dose: 1 drop Dextrose (Dextrose 50 % 25 Gm/50 Ml Syringe) 25 gm IVPUSH Q15M PRN; Protocol PRN Reason: per Hypoglycemia Standing Ord. Furosemide (Furosemide 40 Mg Tablet) 40 mg PO DAILY [facility]; Protocol Last Admin: 04/04/25 08:56 Dose: 40 mg Glipizide (Glipizide 5 Mg Tablet) 5 mg PO DAILY [facility] Last Admin: 04/04/25 08:55 Dose: 5 mg Glucose (Glucose Gel 15 Gm Gel..Gram.) 15 gm PO Q15M PRN; Protocol PRN Reason: per Hypoglycemia Standing Ord. Hydroxyzine HCl (Hydroxyzine Hcl 25 Mg Tablet) 25 mg PO Q6H PRN PRN Reason: mild anxiety Last Admin: 04/01/25 09:27 Dose: 25 mg Insulin Human Lispro (Insulin Lispro 100 Unit/Ml 3 Ml Vial) 0 unit SUBCUT QIDACHS [facility]; Protocol Last Admin: 04/04/25 11:37 Dose: 2 unit Levothyroxine Sodium (Levothyroxine Sodium 150 Mcg Tablet) 150 mcg PO DAILY@0600 [facility] Last Admin: 04/04/25 06:08 Dose: 150 mcg Magnesium Hydroxide (Milk Of Magnesia 30 Ml Oral.Susp) 30 ml PO DAILY PRN PRN Reason: Constipation Metoprolol Tartrate (Metoprolol Tartrate 25 Mg Tablet) 75 mg PO BID [facility]; Protocol Last Admin: 04/04/25 08:56 Dose: 75 mg Nicotine (Nicotine 21 Mg Patch.Td24) 21 mg TRANSDERMA DAILY PRN PRN Reason: smoking cessation Nicotine Polacrilex (Nicotine Polacrilex 2 Mg Gum) 4 mg BUCCAL Q2H PRN PRN Reason: Nicotine Cravings Olanzapine (Olanzapine 5 Mg Tablet) 5 mg PO TID PRN PRN Reason: agitation Last Admin: 04/01/25 09:27 Dose: 5 mg Quetiapine Fumarate (Quetiapine Fumarate 100 Mg Tablet) 100 mg PO DAILY [facility] Last Admin: 04/04/25 08:55 Dose: 100 mg Quetiapine Fumarate (Quetiapine Fumarate 200 Mg Tablet) 200 mg PO BID [facility] Last Admin: 04/04/25 08:55 Dose: 200 mg Rivaroxaban (Rivaroxaban 20 Mg Tablet) 20 mg PO DAILY@1700 [facility] Last Admin: 04/03/25 17:27 Dose: 20 mg Sacubitril/Valsartan (Sacubitril/Valsartan 1 Tab Tablet) 1 tab PO BID [facility]; Protocol Last Admin: 04/04/25 08:55 Dose: 1 tab Spironolactone (Spironolactone 25 Mg Tablet) 25 mg PO DAILY [facility]; Protocol Last Admin: 04/04/25 08:56 Dose: 25 mg Trazodone HCl (Trazodone Hcl 100 Mg Tablet) 200 mg PO BEDTIME [facility] Last Admin: 04/03/25 20:37 Dose: 200 mg Trazodone HCl (Trazodone Hcl 25 Mg Halftab) 25 mg PO BEDTIME [facility] Last Admin: 04/03/25 20:38 Dose: 25 mg Vitamin D (Cholecalciferol (Vitamin D3) 25 Mcg Tablet) 25 mcg PO DAILY [facility] Last Admin: 04/04/25 08:56 Dose: 25 mcg Allergies Allergies Allergy/AdvReac Type Severity Reaction Status Date / Time divalproex sodium Allergy Mild diarrhea, Verified 03/23/25 07:44 [From Depakote] brain fog gluten Allergy Mild Unknown Verified 03/23/25 07:44 hazelnut Allergy Unknown Unknown Verified 01/15/25 10:01 shellfish derived Allergy Unknown Unknown Verified 01/15/25 10:01 sesame seeds Allergy Unknown Unknown Uncoded 01/15/25 10:01 Assessment & Plan Assessment & Plan (1) Bipolar 1 disorder: Status: Acute Code(s): F31.9 - Bipolar disorder, unspecified Plan 69-year-old female with past medical history of bipolar, PTSD, AFib, hypothyroidism, hypertension, LBBB, presented [place] [facility] [place] on 03/23/2025 for chau, paranoia, and auditory hallucinations. She notes that she had a verbal altercation immediately before presenting to the ED. She states that she received the call from her psychiatrist who inform her that she was returning a call regarding a voicemail she received from their home; the voicemail noted that the patient has not been sleeping and needed more medications. The patient inform her psychiatrist that she was unaware of the call which her may have made. She states that her is in charge of administering her medications and was giving her more of her medications than prescribed, and made her groggy. Therefore, she came the trazodone, without knowledge, and was not on the medication for 3 days; however, she slept adequately. Also, was upset after she recently told him she decided not to go to the appointment with the director of the home regarding her plan for cremation and that she change her MOLST from DNR to full code. She notes that her is controlling and does not want her to make decisions about her life. Therefore, she did some research on the Internet and confirmed that her has been a narcissist for the 30 years they been together. As the verbal altercation regarding her 's voicemail to her psychiatrist, which she was unaware of, escalated, the patient has called and asked her daughter to call 911, and she did. Patient was brought to the emergency department. She notes that she sleeps an average of 4-6 hours nightly. Sometimes, she would be awake, and not fall asleep at all, for 1-2 days; however, she does not recall the last time that happened. Per CARE team report, patient's reported that the patient had not slept for 3-4 days and stopped taking her psychotropic medications for about 3 weeks; there is a significant decline in her functioning. Patient denies SI, HI, AVH. She denies drugs or alcohol use. U tox was negative. BAL is 13. Formulation/Clinical reasoning: Bipolar 1 disorder with manic episode: Likely due to not taking her medications for about 3 weeks, leading to significant decline, including chau, paranoia, and functional impairment. Will continue current treatment regimen for now and will make adjustment as needed. She currently has UTI which may also contribute to her mental declines; she is currently treated with cefuroxime which is resistant to the current causative bacteria; will discontinue so fluoxetine and start nitrofurantoin for UTI. Hospital course: 03/28: Patient notes that she is in a good mood today. She had been taking her medications as prescribed. Her daughter is visiting and present. She notes that she slept last night. She denies SI/HI/AH/VH. Her daughter told child welfare social worker that she was very concerned about the patient who went to the bank in her nightgown and transferred 4000 dollars from her 's account into hers. She was subsequently brought home by the police from her friend's home. Continue current treatment regimen. 03/29 remains plesant but paranoid; will continue to see if restarting home regimen will be enough to bring her back to baseline; if not, will either increase doses or augment -may do better on Jamie 03/30: Continue current regimen and plans. 03/31: Continue current regimen and plans. 04/01: some reduction in paranoia; pt feeling differently about her , talking w/ him on the phone; she asked commercial insurance underwriter change his status, saying she now wants him to come and visit her and wants to receive phone calls from from him. -transfer to [facility]; pt agrees 04/02 continue tx. will check EKG given qtc prolonging meds and hx of qtc prolongation. 04/03 continue tx. QTc 503 (506 on admit) cardiology consult for guidance in proceeding with her care. 04/04 decrease trazodone to 100mg po qhs. may add ativan at night time for sleep as needed. Will contact OP provider for collateral information. Pt used to be on risperidone, unclear why it was d/cr. may need mood stabilizer, did become more confused with depakote. renal function decreased in 77, but may consider lithium or carbamazepine. Plan Admit to M5. CV 15 minutes check. Diagnostics as needed. Collateral contact. Continue remainder of regime. Encouraged full milieu. Discharge planning. Reason for continued inpatient stay Substantial Risk for: inability to function Time Spent With Patient Time: Total time managing care of this patient today ____ minutes.
--- NOTE | 2025-04-04 12:29 | P.CONCA_ITS ---
History of Present Illness History of Present Illness Date of Service: 04/04/25 Chief complaint: chau Narrative: This is a cardiology consultation regarding QT prolongation. Recently seen by Sonali Dumont in our clinic. Per notes, it seems that she was recently admitted for atrial fibrillation with rapid rate and diastolic heart failure. Echocardiogram had shown cardiomyopathy. She was diuresed and sent home on Lasix. Then with amiodarone, she converted to sinus rhythm. Outpatient stress test was abnormal and that led to cardiac catheterization. There was DIRECTOR OF AGRICULTURE of the ostial LAD with [id number] collaterals. Then it there is a cardiac surgery consult at [facility] where there was an order for outpatient MRI to look for viability and then consider evaluation for CASE MANAGER SPECIALIST device/DIRECTOR OF AGRICULTURE PCI of the LAD. Currently, she is in the psychiatric floor and there is concern for functional decline, chau, paranoia. With regard to QT, there is concern for prolongation and hence we are consulted. Patient herself does not have any overt cardiac symptoms at this time. Review of Systems 2 Review of Systems: Yes all other systems are reviewed and are negative Constitutional: Constitutional: Reports as per HPI and Reports no additional constitutional complaints Eyes: Eyes: Reports as per HPI and Denies no additional eye complaints ENT: Denies system reviewed and no additional complaints, except as documented and Reports as per HPI Cardiovascular: Cardiovascular: Reports as per HPI, Reports no additional cardiovascular complaints, Denies acrocyanosis, Denies cool extremities, Denies chest pain, Denies leg edema, Denies lightheadedness, Denies palpitations and Denies dyspnea Respiratory: Respiratory: Reports as per HPI, Denies no additional respiratory complaints and Denies dyspnea Gastrointestinal: Gastrointestinal: Reports as per HPI and Denies no additional gastrointestinal complaints Genitourinary: Genitourinary: Reports as per HPI Musculoskeletal: Musculoskeletal: Reports no additional musculoskeletal complaints and Reports as per HPI Integumentary/Breasts: Skin/Breast: Reports system reviewed and no additional complaints, except as docu Neurologic: Reports system reviewed and no additional complaints, except as documented and Reports as per HPI Psychiatric: Psychiatric: Reports no additional psychiatric complaints and Reports as per HPI Endocrine: Endocrine: Reports no additional endocrine complaints, Reports as per HPI and Denies palpitations Hematologic/Lymphatic: Hematologic/Lymphatic: Reports no additional hematologic/lymphatic complaints and Reports as per HPI Allergic/Immunologic: Allergic/Immunologic: Reports no additional allergic/immunologic complaints and Reports as per HPI [facility] Past Medical History Medical History (Updated 04/04/25 @ 12:37 by Dennis Fernández MD) Non-insulin dependent type 2 diabetes mellitus Atrial flutter Bladder cancer Acute blood loss anemia Recurrent UTI Bilateral dacryocystitis Fall Frequency of urination Gait instability UTI (urinary tract infection) Pre-syncope Irritable bowel syndrome with diarrhea Chronic atrial fibrillation Paroxysmal atrial fibrillation C. difficile colitis Morbid obesity due to excess calories Weakness Leg edema Bipolar 1 disorder Vertigo PTSD (post-traumatic stress disorder) History of cardioversion Arthritis Hypothyroidism History of wheezing Diabetes mellitus HTN (hypertension) LBBB (left bundle branch block) PAF (paroxysmal atrial fibrillation) Family History Family History Father No problems noted. Mother No problems noted. Other Mental health disorder Substance use disorder Surgical History Surgical History History of cardiac cath History of cardiac radiofrequency ablation History of eye surgery Hx of section Hx of colonoscopy Hx of cholecystectomy Hx of arthroscopy of right knee Social History Social History Household Members: Spouse Household Members Other:: daughter + Housing: House Do you presently have visiting nurse or other home services: Yes Alcohol intake: former Comment: feels safe and has a lift at home Patient Tobacco Use Status: Former Tobacco user Tobacco use type: Cigarette Smoked in Last 30 Days: No e-Cigarette/Vaping Use: Never Used Patient Interested in Nicotine Replacement: No Patient Given Instructions on How to Stop Smoking: No Second Hand Smoke Exposure: No Use of substances other than those prescribed or required for medical reasons: No Currently Displaying Signs/Symptoms of Drug Intoxication Withdrawal: No Have you been hit, kicked, punched, or otherwise hurt by someone within the past year? If so, by whom?: No (but he's come close) Do you feel safe in your current relationship?: No Is there a partner from a previous relationship who is making you feel unsafe now?: No Are you made to feel afraid or neglected: Yes Rastafari Healthcare Practices: Catholic Religious Advance Directives: Yes Advance Directives on File: Yes Advance Directives Date on File: 06/29/23 Do you have thoughts of harming others: None Do you have a plan to hurt others: No Plan Recently lost weight without trying: No Eating poorly because of decreased appetite: No Patient : No : No Poor oral hygiene: No service: No Current occupational status: employed Sexual orientation: Straight/Heterosexual Cognitive needs: No Hearing needs: No Vision needs: Yes Meds Allergies Allergy/AdvReac Type Severity Reaction Status Date / Time divalproex sodium Allergy Mild diarrhea, Verified 03/23/25 07:44 [From Depakote] brain fog gluten Allergy Mild Unknown Verified 03/23/25 07:44 hazelnut Allergy Unknown Unknown Verified 01/15/25 10:01 shellfish derived Allergy Unknown Unknown Verified 01/15/25 10:01 sesame seeds Allergy Unknown Unknown Uncoded 01/15/25 10:01 Active Medications: Current Medications Acetaminophen (Acetaminophen 325 Mg Tablet) 975 mg PO DAILY PRN PRN Reason: Pain Last Admin: 04/02/25 15:38 Dose: 975 mg Acetaminophen (Acetaminophen 325 Mg Tablet) 650 mg PO Q6H PRN PRN Reason: Headache/Pain, Scale 1-10 Last Admin: 04/01/25 00:10 Dose: 650 mg Al Hydroxide/Mg Hydroxide (Magnesium Hydrox/Alum Hydrox 30 Ml Oral.Susp) 30 ml PO Q6H PRN PRN Reason: Heartburn/Nausea Amiodarone HCl (Amiodarone Hcl 200 Mg Tablet) 200 mg PO DAILY [facility] Last Admin: 04/04/25 08:55 Dose: 200 mg Artificial Tears (Artificial Tears 15 Ml Drops) 1 drop EYE-BOTH TID [facility] Last Admin: 04/04/25 09:00 Dose: 1 drop Dextrose (Dextrose 50 % 25 Gm/50 Ml Syringe) 25 gm IVPUSH Q15M PRN; Protocol PRN Reason: per Hypoglycemia Standing Ord. Furosemide (Furosemide 40 Mg Tablet) 40 mg PO DAILY [facility]; Protocol Last Admin: 04/04/25 08:56 Dose: 40 mg Glipizide (Glipizide 5 Mg Tablet) 5 mg PO DAILY [facility] Last Admin: 04/04/25 08:55 Dose: 5 mg Glucose (Glucose Gel 15 Gm Gel..Gram.) 15 gm PO Q15M PRN; Protocol PRN Reason: per Hypoglycemia Standing Ord. Hydroxyzine HCl (Hydroxyzine Hcl 25 Mg Tablet) 25 mg PO Q6H PRN PRN Reason: mild anxiety Last Admin: 04/01/25 09:27 Dose: 25 mg Insulin Human Lispro (Insulin Lispro 100 Unit/Ml 3 Ml Vial) 0 unit SUBCUT QIDACHS [facility]; Protocol Last Admin: 04/04/25 11:37 Dose: 2 unit Levothyroxine Sodium (Levothyroxine Sodium 150 Mcg Tablet) 150 mcg PO DAILY@0600 [facility] Last Admin: 04/04/25 06:08 Dose: 150 mcg Magnesium Hydroxide (Milk Of Magnesia 30 Ml Oral.Susp) 30 ml PO DAILY PRN PRN Reason: Constipation Metoprolol Tartrate (Metoprolol Tartrate 25 Mg Tablet) 75 mg PO BID [facility]; Protocol Last Admin: 04/04/25 08:56 Dose: 75 mg Nicotine (Nicotine 21 Mg Patch.Td24) 21 mg TRANSDERMA DAILY PRN PRN Reason: smoking cessation Nicotine Polacrilex (Nicotine Polacrilex 2 Mg Gum) 4 mg BUCCAL Q2H PRN PRN Reason: Nicotine Cravings Olanzapine (Olanzapine 5 Mg Tablet) 5 mg PO TID PRN PRN Reason: agitation Last Admin: 04/01/25 09:27 Dose: 5 mg Quetiapine Fumarate (Quetiapine Fumarate 100 Mg Tablet) 100 mg PO DAILY [facility] Last Admin: 04/04/25 08:55 Dose: 100 mg Quetiapine Fumarate (Quetiapine Fumarate 200 Mg Tablet) 200 mg PO BID [facility] Last Admin: 04/04/25 08:55 Dose: 200 mg Rivaroxaban (Rivaroxaban 20 Mg Tablet) 20 mg PO DAILY@1700 [facility] Last Admin: 04/03/25 17:27 Dose: 20 mg Sacubitril/Valsartan (Sacubitril/Valsartan 1 Tab Tablet) 1 tab PO BID [facility]; Protocol Last Admin: 04/04/25 08:55 Dose: 1 tab Spironolactone (Spironolactone 25 Mg Tablet) 25 mg PO DAILY [facility]; Protocol Last Admin: 04/04/25 08:56 Dose: 25 mg Trazodone HCl (Trazodone Hcl 100 Mg Tablet) 200 mg PO BEDTIME [facility] Last Admin: 04/03/25 20:37 Dose: 200 mg Trazodone HCl (Trazodone Hcl 25 Mg Halftab) 25 mg PO BEDTIME [facility] Last Admin: 04/03/25 20:38 Dose: 25 mg Vitamin D (Cholecalciferol (Vitamin D3) 25 Mcg Tablet) 25 mcg PO DAILY [facility] Last Admin: 04/04/25 08:56 Dose: 25 mcg Home Medications ?Medication ?Instructions ?Recorded ?Confirmed ?Last Taken ?Type trazodone 150 mg tablet 225 mg PO BEDTIME 12/16/23 03/23/25 09/09/24 History acetaminophen 500 mg tablet 1,000 mg PO DAILY PRN Pain 07/06/24 03/23/25 Unknown History rivaroxaban 20 mg tablet (Xarelto) 20 mg PO DAILY@1700 07/06/24 03/23/25 09/09/24 History quetiapine 100 mg tablet 100 mg PO BEDTIME 12/21/24 03/24/25 Unknown History quetiapine 200 mg tablet,extended 200 mg PO BEDTIME 12/21/24 03/23/25 Unknown History release 24 hr (Seroquel XR) ascorbic acid (vitamin C) 250 mg 250 mg PO DAILY 03/24/25 03/24/25 Unknown History tablet (Vitamin C) quetiapine 50 mg tablet 50 mg PO DAILY PRN 03/24/25 03/24/25 Unknown History agitation/anxiety artificial tears solution eye drops 1 drp ophthalmic (eye) TID 03/26/25 03/26/25 03/26/25 08:36 History Physical Exam 2 Vital Signs: Vital Signs: Last Vital Signs Temp 98.4 F 04/04/25 08:00 Pulse 72 04/04/25 08:00 Resp 18 04/04/25 08:00 BP 127/58 L 04/04/25 08:00 Pulse Ox 95 04/04/25 08:00 O2 Del Method Room Air 04/04/25 08:00 BMI result Body Mass Index 44.5 Const: General: comfortable and no acute distress O rientation/consciousness: patient oriented x3 HEENT: Other: Unremarkable Head: Yes normal to inspection Neck: Neck: Yes normal visual inspection Chest: Chest palpation & inspection: normal inspection of the chest Resp: Auscultation: clear to auscultation bilaterally Cardio: Palpation: normal PMI Heart sounds: S1 normal heart sound present, S2 normal heart sound present, no gallops, no murmurs and no rubs GI: Palpation (GI): Soft to palpation Back/Spine/Pelvis: Other: unremarkable Skin: General skin exam: no rashes or lesions noted Neuro: General: patient oriented x3 Extrem: General: Yes normal to inspection Psych: Mental Status: mental status grossly normal Objective Labs and Meds 03/23/25 08:01 03/27/25 08:00 Lab results: Laboratory Results - last 24 hr 04/03/25 04/03/25 04/04/25 16:05 19:46 06:22 POC Glucose 133 H 166 H 183 H 04/04/25 11:08 POC Glucose 182 H ECG Interpretation: EKG with sinus rhythm at 63/Min; [place] prolongation to 212 millisecond; nonspecific intraventricular conduction defect; corrected QT is 503 milliseconds but there is also contribution from wide QRS. Hence the actual corrected QT is somewhat < 500 milliseconds. Assessment and Plan (1) Prolonged QT interval: Status: Acute (2) Cardiomyopathy: Status: Acute (3) Chronic combined systolic and diastolic congestive heart failure: Status: Acute (4) PAF (paroxysmal atrial fibrillation): Status: Acute Plan EKG has conduction system disease/nonspecific IVCD versus LBBB pattern. Last echocardiogram with LVEF of 30-35%. Nuclear perfusion imaging showed LAD territory ischemia/infarct Cardiac catheterization with ostial LAD DIRECTOR OF AGRICULTURE with [id number] collaterals. Minimal disease in the circumflex/RCA. Overall, the slight widening of corrected QT is because of underlying wide QRS as well as due to use of amiodarone and psychiatric medications that prolonged QT. Of note, lot of her prior EKGs also shows similar corrected QT. Discussed with STOCK ANALYST about this-free cautious with any QT prolonging drugs from Psychiatry standpoint. If they are indeed used, then we will need to monitor EKGs for QT. Without amiodarone, there is risk of going back into atrial fibrillation and hence more than likely will need this for now. Upon discharge from psychiatry, we will need follow up in clinic. Procedures Date of Service Date of Service: 04/04/25
[2025-04-04 13:55] VITALS: BMI 43.4
[2025-04-04] MEDS: Acetaminophen 325 MG TABLET 975 MG PO (15:24)
[2025-04-04] MEDS: Rivaroxaban 20 MG TABLET PO (16:42)
[2025-04-04 16:43] LABS: Glucose, Whole Blood 162 mg/dL (60-115)
[2025-04-04 19:40] VITALS: BP 137/77; PULSE 63; TEMP 36.4; O2SAT 94
[2025-04-04 20:17] LABS: Glucose, Whole Blood 157 mg/dL (60-115)
[2025-04-05 08:00] VITALS: BP 145/73; PULSE 78; RESP 18; TEMP 36.4; O2SAT 95
[2025-04-05 10:29] VITALS: BP 136/63; PULSE 73
[2025-04-05] MEDS: Metoprolol Tartrate 25 MG TABLET 75 MG PO ×2 (10:29→20:44)
[2025-04-05] MEDS: Furosemide 40 MG TABLET PO (10:29)
[2025-04-05 10:30] VITALS: BP 136/63
[2025-04-05] MEDS: Amiodarone HCL 200 MG TABLET PO (10:30)
[2025-04-05] MEDS: Sacubitril/Valsartan 24/26 1 TAB TABLET PO ×2 (10:30→20:44)
[2025-04-05 10:31] VITALS: BP 136/60
[2025-04-05] MEDS: QUEtiapine Fumarate 200 MG TABLET PO ×2 (10:31→20:44)
[2025-04-05] MEDS: glipiZIDE 5 MG TABLET PO (10:31)
[2025-04-05] MEDS: Cholecalciferol (Vitamin D3) 25 MCG TABLET PO (10:31)
[2025-04-05] MEDS: Spironolactone 25 MG TABLET PO (10:31)
[2025-04-05] MEDS: QUEtiapine Fumarate 100 MG TABLET PO (10:32)
--- NOTE | 2025-04-05 10:44 | HO.PSYCHPN ---
Subjective Subjective Date of Service: 04/05/25 Reason For Visit: chau Subjective Notes: Conditional Voluntary Interim History: Pt slept through the night. She reports she did not take any of her medications, including cardiac medication for HF/cardiomyopathy because she does not think God wants her to do so. She continues to report she is not able to trust her or other people. She continues to request bottle water as she does not know what's in water pitcher. She reports she may divorce . At same time, pt reports she does not know if what she thinks is real and may be her mental illness. She did report she will try not to make drastic decisions until she is psychiatrically more stable. But then again she states she thinks she should try and see what happens if she stops all medications. She denies SI/HI. Mental Status Exam Mental Status Exam Narrative: Appearance: MO, wearing hospital gown, fair hygiene, in NAD Behavior: friendly Psychomotor: no agitation or retardation noted, mild action bilat tremor noted Speech: clear, normal rate/rhythm/volume, spontaneous TP: tangential TC: connecting with God and wanting to do as he says Mood: good Affect: expansive SI: denies HI: denies VH/AH: internally preoccupied Delusions: yazidi delusions, along with some paranoid ideas Insight/judgment: impaired due to psychiatric illness Memory/cog: alert, oriented x 3. Diagnostics Vital Signs (24Hr): Vital Signs - 24 hr 04/04/25 19:40 04/05/25 08:00 04/05/25 10:29 Temperature 97.5 F 97.5 F Pulse Rate 63 78 73 Respiratory Rate 18 Blood Pressure 137/77 145/73 H 136/63 Pulse Oximetry 94 95 Oxygen Delivery Method Room Air Room Air 04/05/25 10:29 04/05/25 10:30 04/05/25 10:31 Temperature Pulse Rate Respiratory Rate Blood Pressure 136/63 136/63 136/60 Pulse Oximetry Oxygen Delivery Method BMI result Body Mass Index 43.4 Labs 03/23/25 08:01 03/27/25 08:00 Labs: Laboratory Results - last 48 hr 04/03/25 04/03/25 04/03/25 11:08 16:05 19:46 POC Glucose 190 H 133 H 166 H 04/04/25 04/04/25 04/04/25 06:22 11:08 16:37 POC Glucose 183 H 182 H 162 H 04/04/25 20:09 POC Glucose 157 H Medications Medications Current Medications Acetaminophen (Acetaminophen 325 Mg Tablet) 975 mg PO DAILY PRN PRN Reason: Pain Last Admin: 04/04/25 15:24 Dose: 975 mg Acetaminophen (Acetaminophen 325 Mg Tablet) 650 mg PO Q6H PRN PRN Reason: Headache/Pain, Scale 1-10 Last Admin: 04/01/25 00:10 Dose: 650 mg Al Hydroxide/Mg Hydroxide (Magnesium Hydrox/Alum Hydrox 30 Ml Oral.Susp) 30 ml PO Q6H PRN PRN Reason: Heartburn/Nausea Amiodarone HCl (Amiodarone Hcl 200 Mg Tablet) 200 mg PO DAILY [facility] Last Admin: 04/05/25 10:30 Dose: 200 mg Artificial Tears (Artificial Tears 15 Ml Drops) 1 drop EYE-BOTH TID [facility] Last Admin: 04/04/25 21:39 Dose: Not Given Dextrose (Dextrose 50 % 25 Gm/50 Ml Syringe) 25 gm IVPUSH Q15M PRN; Protocol PRN Reason: per Hypoglycemia Standing Ord. Furosemide (Furosemide 40 Mg Tablet) 40 mg PO DAILY [facility]; Protocol Last Admin: 04/05/25 10:29 Dose: 40 mg Glipizide (Glipizide 5 Mg Tablet) 5 mg PO DAILY [facility] Last Admin: 04/05/25 10:31 Dose: 5 mg Glucose (Glucose Gel 15 Gm Gel..Gram.) 15 gm PO Q15M PRN; Protocol PRN Reason: per Hypoglycemia Standing Ord. Hydroxyzine HCl (Hydroxyzine Hcl 25 Mg Tablet) 25 mg PO Q6H PRN PRN Reason: mild anxiety Last Admin: 04/01/25 09:27 Dose: 25 mg Insulin Human Lispro (Insulin Lispro 100 Unit/Ml 3 Ml Vial) 0 unit SUBCUT QIDACHS [facility]; Protocol Last Admin: 04/05/25 08:53 Dose: Not Given Levothyroxine Sodium (Levothyroxine Sodium 150 Mcg Tablet) 150 mcg PO DAILY@0600 [facility] Last Admin: 04/05/25 06:01 Dose: Not Given Magnesium Hydroxide (Milk Of Magnesia 30 Ml Oral.Susp) 30 ml PO DAILY PRN PRN Reason: Constipation Metoprolol Tartrate (Metoprolol Tartrate 25 Mg Tablet) 75 mg PO BID [facility]; Protocol Last Admin: 04/05/25 10:29 Dose: 75 mg Nicotine (Nicotine 21 Mg Patch.Td24) 21 mg TRANSDERMA DAILY PRN PRN Reason: smoking cessation Nicotine Polacrilex (Nicotine Polacrilex 2 Mg Gum) 4 mg BUCCAL Q2H PRN PRN Reason: Nicotine Cravings Olanzapine (Olanzapine 5 Mg Tablet) 5 mg PO TID PRN PRN Reason: agitation Last Admin: 04/01/25 09:27 Dose: 5 mg Quetiapine Fumarate (Quetiapine Fumarate 100 Mg Tablet) 100 mg PO DAILY [facility] Last Admin: 04/05/25 10:32 Dose: 100 mg Quetiapine Fumarate (Quetiapine Fumarate 200 Mg Tablet) 200 mg PO BID [facility] Last Admin: 04/05/25 10:31 Dose: 200 mg Rivaroxaban (Rivaroxaban 20 Mg Tablet) 20 mg PO DAILY@1700 [facility] Last Admin: 04/04/25 16:42 Dose: 20 mg Sacubitril/Valsartan (Sacubitril/Valsartan 1 Tab Tablet) 1 tab PO BID [facility]; Protocol Last Admin: 04/05/25 10:30 Dose: 1 tab Spironolactone (Spironolactone 25 Mg Tablet) 25 mg PO DAILY [facility]; Protocol Last Admin: 04/05/25 10:31 Dose: 25 mg Trazodone HCl (Trazodone Hcl 100 Mg Tablet) 100 mg PO BEDTIME [facility] Vitamin D (Cholecalciferol (Vitamin D3) 25 Mcg Tablet) 25 mcg PO DAILY [facility] Last Admin: 04/05/25 10:31 Dose: 25 mcg Allergies Allergies Allergy/AdvReac Type Severity Reaction Status Date / Time divalproex sodium Allergy Mild diarrhea, Verified 03/23/25 07:44 [From Depakote] brain fog gluten Allergy Mild Unknown Verified 03/23/25 07:44 hazelnut Allergy Unknown Unknown Verified 01/15/25 10:01 shellfish derived Allergy Unknown Unknown Verified 01/15/25 10:01 sesame seeds Allergy Unknown Unknown Uncoded 01/15/25 10:01 Assessment & Plan Assessment & Plan (1) Bipolar 1 disorder: Status: Acute Code(s): F31.9 - Bipolar disorder, unspecified Plan 69-year-old female with past medical history of bipolar, PTSD, AFib, hypothyroidism, hypertension, LBBB, presented to [facility] via ambulance on 03/23/2025 for chau, paranoia, and auditory hallucinations. She notes that she had a verbal altercation immediately before presenting to the ED. She states that she received the call from her psychiatrist who inform her that she was returning a call regarding a voicemail she received from their home; the voicemail noted that the patient has not been sleeping and needed more medications. The patient inform her psychiatrist that she was unaware of the call which her may have made. She states that her is in charge of administering her medications and was giving her more of her medications than prescribed, and made her groggy. Therefore, she came the trazodone, without knowledge, and was not on the medication for 3 days; however, she slept adequately. Also, was upset after she recently told him she decided not to go to the appointment with the director of the home regarding her plan for cremation and that she change her MOLST from DNR to full code. She notes that her is controlling and does not want her to make decisions about her life. Therefore, she did some research on the Internet and confirmed that her has been a narcissist for the 30 years they been together. As the verbal altercation regarding her 's voicemail to her psychiatrist, which she was unaware of, escalated, the patient has called and asked her daughter to call 911, and she did. Patient was brought to the emergency department. She notes that she sleeps an average of 4-6 hours nightly. Sometimes, she would be awake, and not fall asleep at all, for 1-2 days; however, she does not recall the last time that happened. Per CARE team report, patient's reported that the patient had not slept for 3-4 days and stopped taking her psychotropic medications for about 3 weeks; there is a significant decline in her functioning. Patient denies SI, HI, AVH. She denies drugs or alcohol use. U tox was negative. BAL is 13. Formulation/Clinical reasoning: Bipolar 1 disorder with manic episode: Likely due to not taking her medications for about 3 weeks, leading to significant decline, including chau, paranoia, and functional impairment. Will continue current treatment regimen for now and will make adjustment as needed. She currently has UTI which may also contribute to her mental declines; she is currently treated with cefuroxime which is resistant to the current causative bacteria; will discontinue so fluoxetine and start nitrofurantoin for UTI. Hospital course: 03/28: Patient notes that she is in a good mood today. She had been taking her medications as prescribed. Her daughter is visiting and present. She notes that she slept last night. She denies SI/HI/AH/VH. Her daughter told social worker health services that she was very concerned about the patient who went to the bank in her nightgown and transferred 4000 dollars from her 's account into hers. She was subsequently brought home by the police from her friend's home. Continue current treatment regimen. 03/29 remains plesant but paranoid; will continue to see if restarting home regimen will be enough to bring her back to baseline; if not, will either increase doses or augment -may do better on Jamie 03/30: Continue current regimen and plans. 03/31: Continue current regimen and plans. 04/01: some reduction in paranoia; pt feeling differently about her , talking w/ him on the phone; she asked mortgage or loan underwriter change his status, saying she now wants him to come and visit her and wants to receive phone calls from from him. -transfer to [facility]; pt agrees 04/02 continue tx. will check EKG given qtc prolonging meds and hx of qtc prolongation. 04/03 continue tx. QTc 503 (506 on admit) cardiology consult for guidance in proceeding with her care. 04/04 decrease trazodone to 100mg po qhs. may add ativan at night time for sleep as needed. Will contact OP provider for collateral information. Pt used to be on risperidone, unclear why it was d/cr. may need mood stabilizer, did become more confused with depakote. renal function decreased in 77, but may consider lithium or carbamazepine. 04/05 pt refusing medical medications stating God does not want her to do so. Questioning her dx of DM and whether is true that BS have been elevated in the past month including worsening of A1C from 7% to 7.9% in last few months. yazidi and paranoid ideas towards and staff here. This mortgage or loan underwriter discussed with pt adding mood stabilizer, however, options between lithium and carbamazepine, given that pt had depakote in past but became more confused on it. If decide to go with lithium- keeping in mind pt also on lasix and losartan. or Carbamazepine lowers level of amiodarone and eliquis (and seroquel). seen by hospitalist today due to bilat edema started on lasix, added daily weights given HF. attempted to call OP provider but unable to leave message through [facility]. pt used to be on risperidone- unclear if d/cr due to EPS side effects. Plan Admit to M5. CV 15 minutes check. Diagnostics as needed. Collateral contact. Continue remainder of regime. Encouraged full milieu. Discharge planning. Reason for continued inpatient stay Substantial Risk for: inability to function Time Spent With Patient Time: Total time managing care of this patient today ____ minutes.
--- NOTE | 2025-04-05 10:49 | PC.NURSE ---
Patient was refusing her am meds. Changed her mind after 10AM. Marry Mckeon NP stated to give medications to the patient.
[2025-04-05] MEDS: Artificial Tears 15 ML DROPS 1 DROP EYE-BOTH (11:30)
--- NOTE | 2025-04-05 11:31 | P.CONHOSP_ITS ---
History of Present Illness Data of Consult Service Date: 04/05/25 Primary Care Provider: Adithya Gutierrez MD [facility] Reason for consult: Follow up diabetes and edema 69-year-old female with past medical history of diabetes, AFib, bipolar, PTSD, hypothyroid, HTN, LBBB. She was admitted to [facility] after her reported that she had not been sleeping and stopped taking her psychotropic medications resulting in a decline in her function. Per nursing she has had increased edema in bilateral lower extremities. Review of Systems 2 Review of Systems: Denies any shortness of breath, chest pain, dizziness, lightheadedness, abdominal pain or discomfort, nausea vomiting or diarrhea PMFSH Medical History (Updated 04/04/25 @ 12:37 by Dennis Fernández MD) Non-insulin dependent type 2 diabetes mellitus Atrial flutter Bladder cancer Acute blood loss anemia Recurrent UTI Bilateral dacryocystitis Fall Frequency of urination Gait instability UTI (urinary tract infection) Pre-syncope Irritable bowel syndrome with diarrhea Chronic atrial fibrillation Paroxysmal atrial fibrillation C. difficile colitis Morbid obesity due to excess calories Weakness Leg edema Bipolar 1 disorder Vertigo PTSD (post-traumatic stress disorder) History of cardioversion Arthritis Hypothyroidism History of wheezing Diabetes mellitus HTN (hypertension) LBBB (left bundle branch block) PAF (paroxysmal atrial fibrillation) Family History Father No problems noted. Mother No problems noted. Other Mental health disorder Substance use disorder Surgical History History of cardiac cath History of cardiac radiofrequency ablation History of eye surgery Hx of section Hx of colonoscopy Hx of cholecystectomy Hx of arthroscopy of right knee Social History Household Members: Spouse Household Members Other:: daughter + Housing: House Do you presently have visiting nurse or other home services: Yes Alcohol intake: former Comment: feels safe and has a lift at home Patient Tobacco Use Status: Former Tobacco user Tobacco use type: Cigarette Smoked in Last 30 Days: No e-Cigarette/Vaping Use: Never Used Patient Interested in Nicotine Replacement: No Patient Given Instructions on How to Stop Smoking: No Second Hand Smoke Exposure: No Use of substances other than those prescribed or required for medical reasons: No Currently Displaying Signs/Symptoms of Drug Intoxication Withdrawal: No Have you been hit, kicked, punched, or otherwise hurt by someone within the past year? If so, by whom?: No (but he's come close) Do you feel safe in your current relationship?: No Is there a partner from a previous relationship who is making you feel unsafe now?: No Are you made to feel afraid or neglected: Yes [employer] Practices: Christianity Christianity Advance Directives: Yes Advance Directives on File: Yes Advance Directives Date on File: 06/29/23 Do you have thoughts of harming others: None Do you have a plan to hurt others: No Plan Recently lost weight without trying: No Eating poorly because of decreased appetite: No Patient : No : No Poor oral hygiene: No service: No Current occupational status: employed Sexual orientation: Straight/Heterosexual Cognitive needs: No Hearing needs: No Vision needs: Yes Meds Allergies Allergy/AdvReac Type Severity Reaction Status Date / Time divalproex sodium Allergy Mild diarrhea, Verified 03/23/25 07:44 [From Depakote] brain fog gluten Allergy Mild Unknown Verified 03/23/25 07:44 hazelnut Allergy Unknown Unknown Verified 01/15/25 10:01 shellfish derived Allergy Unknown Unknown Verified 01/15/25 10:01 sesame seeds Allergy Unknown Unknown Uncoded 01/15/25 10:01 Active Medications: Current Medications Acetaminophen (Acetaminophen 325 Mg Tablet) 975 mg PO DAILY PRN PRN Reason: Pain Last Admin: 04/04/25 15:24 Dose: 975 mg Acetaminophen (Acetaminophen 325 Mg Tablet) 650 mg PO Q6H PRN PRN Reason: Headache/Pain, Scale 1-10 Last Admin: 04/01/25 00:10 Dose: 650 mg Al Hydroxide/Mg Hydroxide (Magnesium Hydrox/Alum Hydrox 30 Ml Oral.Susp) 30 ml PO Q6H PRN PRN Reason: Heartburn/Nausea Amiodarone HCl (Amiodarone Hcl 200 Mg Tablet) 200 mg PO DAILY SELMA Last Admin: 04/05/25 10:30 Dose: 200 mg Artificial Tears (Artificial Tears 15 Ml Drops) 1 drop EYE-BOTH TID PRN PRN Reason: Dry Eyes Last Admin: 04/05/25 11:30 Dose: 1 drop Dextrose (Dextrose 50 % 25 Gm/50 Ml Syringe) 25 gm IVPUSH Q15M PRN; Protocol PRN Reason: per Hypoglycemia Standing Ord. Furosemide (Furosemide 40 Mg Tablet) 40 mg PO DAILY [facility]; Protocol Last Admin: 04/05/25 10:29 Dose: 40 mg Glipizide (Glipizide 5 Mg Tablet) 5 mg PO DAILY [facility] Last Admin: 04/05/25 10:31 Dose: 5 mg Glucose (Glucose Gel 15 Gm Gel..Gram.) 15 gm PO Q15M PRN; Protocol PRN Reason: per Hypoglycemia Standing Ord. Hydroxyzine HCl (Hydroxyzine Hcl 25 Mg Tablet) 25 mg PO Q6H PRN PRN Reason: mild anxiety Last Admin: 04/01/25 09:27 Dose: 25 mg Insulin Human Lispro (Insulin Lispro 100 Unit/Ml 3 Ml Vial) 0 unit SUBCUT QIDACHS [facility]; Protocol Last Admin: 04/05/25 08:53 Dose: Not Given Levothyroxine Sodium (Levothyroxine Sodium 150 Mcg Tablet) 150 mcg PO DAILY@0600 [facility] Last Admin: 04/05/25 06:01 Dose: Not Given Magnesium Hydroxide (Milk Of Magnesia 30 Ml Oral.Susp) 30 ml PO DAILY PRN PRN Reason: Constipation Metoprolol Tartrate (Metoprolol Tartrate 25 Mg Tablet) 75 mg PO BID [facility]; Protocol Last Admin: 04/05/25 10:29 Dose: 75 mg Nicotine (Nicotine 21 Mg Patch.Td24) 21 mg TRANSDERMA DAILY PRN PRN Reason: smoking cessation Nicotine Polacrilex (Nicotine Polacrilex 2 Mg Gum) 4 mg BUCCAL Q2H PRN PRN Reason: Nicotine Cravings Olanzapine (Olanzapine 5 Mg Tablet) 5 mg PO TID PRN PRN Reason: agitation Last Admin: 04/01/25 09:27 Dose: 5 mg Quetiapine Fumarate (Quetiapine Fumarate 100 Mg Tablet) 100 mg PO DAILY [facility] Last Admin: 04/05/25 10:32 Dose: 100 mg Quetiapine Fumarate (Quetiapine Fumarate 200 Mg Tablet) 200 mg PO BID [facility] Last Admin: 04/05/25 10:31 Dose: 200 mg Rivaroxaban (Rivaroxaban 20 Mg Tablet) 20 mg PO DAILY@1700 [facility] Last Admin: 04/04/25 16:42 Dose: 20 mg Sacubitril/Valsartan (Sacubitril/Valsartan 1 Tab Tablet) 1 tab PO BID [facility]; Protocol Last Admin: 04/05/25 10:30 Dose: 1 tab Spironolactone (Spironolactone 25 Mg Tablet) 25 mg PO DAILY [facility]; Protocol Last Admin: 04/05/25 10:31 Dose: 25 mg Trazodone HCl (Trazodone Hcl 100 Mg Tablet) 100 mg PO BEDTIME SELMA Vitamin D (Cholecalciferol (Vitamin D3) 25 Mcg Tablet) 25 mcg PO DAILY SELMA Last Admin: 04/05/25 10:31 Dose: 25 mcg Home Medications ?Medication ?Instructions ?Recorded ?Confirmed ?Last Taken ?Type trazodone 150 mg tablet 225 mg PO BEDTIME 12/16/23 03/23/25 09/09/24 History acetaminophen 500 mg tablet 1,000 mg PO DAILY PRN Pain 07/06/24 03/23/25 Unknown History rivaroxaban 20 mg tablet (Xarelto) 20 mg PO DAILY@1700 07/06/24 03/23/25 09/09/24 History quetiapine 100 mg tablet 100 mg PO BEDTIME 12/21/24 03/24/25 Unknown History quetiapine 200 mg tablet,extended 200 mg PO BEDTIME 12/21/24 03/23/25 Unknown History release 24 hr (Seroquel XR) ascorbic acid (vitamin C) 250 mg 250 mg PO DAILY 03/24/25 03/24/25 Unknown History tablet (Vitamin C) quetiapine 50 mg tablet 50 mg PO DAILY PRN 03/24/25 03/24/25 Unknown History agitation/anxiety artificial tears solution eye drops 1 drp ophthalmic (eye) TID 03/26/25 03/26/25 03/26/25 08:36 History Physical Exam 2 Vital Signs and Narrative: Vital Signs: Last Vital Signs Temp 97.5 F 04/05/25 08:00 Pulse 73 04/05/25 10:29 Resp 18 04/05/25 08:00 BP 136/60 04/05/25 10:31 Pulse Ox 95 04/05/25 08:00 O2 Del Method Room Air 04/05/25 08:00 BMI result Body Mass Index 43.4 CONST: Alert and oriented, in NAD. Well nourished HEENT: Normocephalic, atraumatic, MMM, Eyes clear, Neck supple RESP: Lungs clear, RRR even and regular HEART:,RRR, S1, S2. No murmur, 1+ edema to bilateral lower legs GI:Abdomen Soft NT, ND. + BS times four :Deferred SKIN: Warm dry and intact, no visible lesions or rashes NEURO:CN II-XII Intact bilaterally, Sensation intact. Speech clear PSYCH: Normal affect, quiet and cooperative Results Labs 03/23/25 08:01 03/27/25 08:00 Labs: Laboratory Results - last 24 hr 04/04/25 04/04/25 16:37 20:09 POC Glucose 162 H 157 H Assessment and Plan (1) Chronic combined systolic and diastolic congestive heart failure: Status: Acute Plan Shea/bipolar disorder/paranoia and auditory hallucination Treatment per psychiatry team Cardiomyopathy/prolonged QT interval/chronic systolic and diastolic congestive heart failure/paroxysmal AFib Patient was recently seen by Cardiology, notes reviewed and appreciated EKG has conduction system disease/nonspecific IVCD versus LBBB pattern. Last echocardiogram with LVEF of 30-35%. Cardiac catheterization with ostial LAD LU[facility] ROLLER with [id number] collaterals. Minimal disease in the circumflex/RCA. Use caution with QT prolonging drugs from Psychiatry standpoint. Will DC Hydroxyzine Continue amiodarone, there is risk of going back into atrial fibrillation. She will need outpatient follow up in cardiology clinic. Regarding her lower extremity edema would recommend elevating her legs, and use of compression stockings if she is in agreement. Continue Lasix daily, continue Xarelto and Entresto. Also on Aldactone Type 2 diabetes Glucotrol recently increased Blood sugar ranges from 160s to 190s. Consistent carbs diet, continue to monitor Hypothyroidism Continue Levothyroxine 150 mg daily Recent TSH 4.50, free T4 1.02 within normal limits Avoid any changes at this time
[2025-04-05 11:42] LABS: Glucose, Whole Blood 160 mg/dL (60-115)
[2025-04-05] MEDS: Insulin Lispro 100 UNIT/ML 3 ML VIAL SUBCUT (11:48)
[2025-04-05] MEDS: Acetaminophen 325 MG TABLET 975 MG PO (13:16)
[2025-04-05] MEDS: Rivaroxaban 20 MG TABLET PO (16:44)
[2025-04-05 19:58] LABS: Glucose, Whole Blood 201 mg/dL (60-115)
[2025-04-05 20:00] VITALS: BP 130/59; PULSE 64; RESP 18; TEMP 36.3; O2SAT 97
[2025-04-05] MEDS: traZODone HCL 100 MG TABLET PO (20:45)
[2025-04-05] MEDS: Acetaminophen 325 MG TABLET 650 MG PO (21:53)
--- NOTE | 2025-04-06 00:48 | PC.NURSE ---
Pt. put herself on the floor, kneeling on the side of the bed and call her mena and said that she wants a man to get her up. Pt is behavioral. When staff tried to help her pt was yelling that she could not get up. Called security and help her get up and then she went back to bed and went back to sleep.
[2025-04-06] MEDS: OLANZapine 5 MG TABLET PO (01:46)
[2025-04-06] MEDS: Acetaminophen 325 MG TABLET 650 MG PO (04:22)
[2025-04-06] MEDS: Levothyroxine Sodium 150 MCG TABLET PO (05:38)
[2025-04-06 06:35] LABS: Glucose, Whole Blood 177 mg/dL (60-115)
[2025-04-06 08:00] VITALS: BP 111/58; PULSE 63; RESP 16; TEMP 36.2; O2SAT 98; BMI 42.8
[2025-04-06 08:33] LABS: Glucose, Whole Blood 193 mg/dL (60-115)
[2025-04-06] MEDS: Insulin Lispro 100 UNIT/ML 3 ML VIAL SUBCUT ×4 (09:01→20:26)
[2025-04-06] MEDS: Furosemide 40 MG TABLET PO (09:02)
[2025-04-06] MEDS: QUEtiapine Fumarate 200 MG TABLET PO ×2 (09:03→20:28)
[2025-04-06] MEDS: Spironolactone 25 MG TABLET PO (09:03)
[2025-04-06] MEDS: Sacubitril/Valsartan 24/26 1 TAB TABLET PO ×2 (09:03→20:28)
[2025-04-06] MEDS: Cholecalciferol (Vitamin D3) 25 MCG TABLET PO (09:03)
[2025-04-06] MEDS: Metoprolol Tartrate 25 MG TABLET 75 MG PO ×2 (09:04→20:27)
[2025-04-06] MEDS: QUEtiapine Fumarate 100 MG TABLET PO (09:04)
[2025-04-06] MEDS: glipiZIDE 5 MG TABLET PO (09:04)
[2025-04-06] MEDS: Amiodarone HCL 200 MG TABLET PO (09:04)
--- NOTE | 2025-04-06 09:42 | P.PNPSI_ITS ---
Subjective Subjective Date of Service: 04/06/25 Reason For Visit: chau Interim History: seems to be doubting some of her paranoid thoughts, but struggling with the instincts conflicting with her logic. encouraged to continue taking seroquel and allow Tx of DM. per staff, suspicious, paranoid. claimed she fell out of bed overnight, but staff doubting as she was kneeling as if in prayer on the side of the bed opposite the side where rail was down. refused insulin yesterday, took it this morning. restless. irritable, anxious. PRN zyprexa. slept 5 hours. Mental Status Exam Mental Status Exam Narrative: Appearance: MO, wearing own clothes, fair hygiene, in NAD Behavior: friendly Psychomotor: no agitation or retardation noted Speech: clear, normal rate/rhythm/volume, spontaneous TP: tangential TC: doubting paranoid delusions, but struggling Mood: not assessed Affect: constricted SI: none expressed HI: none expressed VH/AH: internally preoccupied Delusions: delusions of persecution alluded to Insight/judgment: impaired due to psychiatric illness Memory/cog: alert, oriented x 3. Diagnostics Vital Signs (24Hr): Vital Signs - 24 hr 04/05/25 10:29 04/05/25 10:29 04/05/25 10:30 Temperature Pulse Rate 73 Respiratory Rate Blood Pressure 136/63 136/63 136/63 Pulse Oximetry Oxygen Delivery Method 04/05/25 10:31 04/05/25 20:00 04/06/25 08:00 Temperature 97.3 F 97.2 F Pulse Rate 64 63 Respiratory Rate 18 16 Blood Pressure 136/60 130/59 L 111/58 L Pulse Oximetry 97 98 Oxygen Delivery Method Room Air Room Air BMI result Body Mass Index 43.4 Labs 03/23/25 08:01 03/27/25 08:00 Labs: Laboratory Results - last 48 hr 04/04/25 04/04/25 04/04/25 11:08 16:37 20:09 POC Glucose 182 H 162 H 157 H 04/05/25 04/05/25 04/06/25 11:32 19:51 06:07 POC Glucose 160 H 201 H 177 H 04/06/25 08:26 POC Glucose 193 H Medications Medications Current Medications Acetaminophen (Acetaminophen 325 Mg Tablet) 975 mg PO DAILY PRN PRN Reason: Pain Last Admin: 04/05/25 13:16 Dose: 975 mg Acetaminophen (Acetaminophen 325 Mg Tablet) 650 mg PO Q6H PRN PRN Reason: Headache/Pain, Scale 1-10 Last Admin: 04/06/25 04:22 Dose: 650 mg Al Hydroxide/Mg Hydroxide (Magnesium Hydrox/Alum Hydrox 30 Ml Oral.Susp) 30 ml PO Q6H PRN PRN Reason: Heartburn/Nausea Amiodarone HCl (Amiodarone Hcl 200 Mg Tablet) 200 mg PO DAILY [facility] Last Admin: 04/06/25 09:04 Dose: 200 mg Artificial Tears (Artificial Tears 15 Ml Drops) 1 drop EYE-BOTH TID PRN PRN Reason: Dry Eyes Last Admin: 04/05/25 11:30 Dose: 1 drop Dextrose (Dextrose 50 % 25 Gm/50 Ml Syringe) 25 gm IVPUSH Q15M PRN; Protocol PRN Reason: per Hypoglycemia Standing Ord. Furosemide (Furosemide 40 Mg Tablet) 40 mg PO DAILY [facility]; Protocol Last Admin: 04/06/25 09:02 Dose: 40 mg Glipizide (Glipizide 5 Mg Tablet) 5 mg PO DAILY [facility] Last Admin: 04/06/25 09:04 Dose: 5 mg Glucose (Glucose Gel 15 Gm Gel..Gram.) 15 gm PO Q15M PRN; Protocol PRN Reason: per Hypoglycemia Standing Ord. Insulin Human Lispro (Insulin Lispro 100 Unit/Ml 3 Ml Vial) 0 unit SUBCUT QIDACHS [facility]; Protocol Last Admin: 04/06/25 09:01 Dose: 2 unit Levothyroxine Sodium (Levothyroxine Sodium 150 Mcg Tablet) 150 mcg PO DAILY@0600 [facility] Last Admin: 04/06/25 05:38 Dose: 150 mcg Magnesium Hydroxide (Milk Of Magnesia 30 Ml Oral.Susp) 30 ml PO DAILY PRN PRN Reason: Constipation Metoprolol Tartrate (Metoprolol Tartrate 25 Mg Tablet) 75 mg PO BID [facility]; Protocol Last Admin: 04/06/25 09:04 Dose: 75 mg Nicotine (Nicotine 21 Mg Patch.Td24) 21 mg TRANSDERMA DAILY PRN PRN Reason: smoking cessation Nicotine Polacrilex (Nicotine Polacrilex 2 Mg Gum) 4 mg BUCCAL Q2H PRN PRN Reason: Nicotine Cravings Olanzapine (Olanzapine 5 Mg Tablet) 5 mg PO TID PRN PRN Reason: agitation Last Admin: 04/06/25 01:46 Dose: 5 mg Quetiapine Fumarate (Quetiapine Fumarate 100 Mg Tablet) 100 mg PO DAILY [facility] Last Admin: 04/06/25 09:04 Dose: 100 mg Quetiapine Fumarate (Quetiapine Fumarate 200 Mg Tablet) 200 mg PO BID [facility] Last Admin: 04/06/25 09:03 Dose: 200 mg Rivaroxaban (Rivaroxaban 20 Mg Tablet) 20 mg PO DAILY@1700 [facility] Last Admin: 04/05/25 16:44 Dose: 20 mg Sacubitril/Valsartan (Sacubitril/Valsartan 1 Tab Tablet) 1 tab PO BID [facility]; Protocol Last Admin: 04/06/25 09:03 Dose: 1 tab Spironolactone (Spironolactone 25 Mg Tablet) 25 mg PO DAILY [facility]; Protocol Last Admin: 04/06/25 09:03 Dose: 25 mg Trazodone HCl (Trazodone Hcl 100 Mg Tablet) 100 mg PO BEDTIME SELMA Last Admin: 04/05/25 20:45 Dose: 100 mg Vitamin D (Cholecalciferol (Vitamin D3) 25 Mcg Tablet) 25 mcg PO DAILY [facility] Last Admin: 04/06/25 09:03 Dose: 25 mcg Allergies Allergies Allergy/AdvReac Type Severity Reaction Status Date / Time divalproex sodium Allergy Mild diarrhea, Verified 03/23/25 07:44 [From Depakote] brain fog gluten Allergy Mild Unknown Verified 03/23/25 07:44 hazelnut Allergy Unknown Unknown Verified 01/15/25 10:01 shellfish derived Allergy Unknown Unknown Verified 01/15/25 10:01 sesame seeds Allergy Unknown Unknown Uncoded 01/15/25 10:01 Assessment & Plan Assessment & Plan (1) Bipolar 1 disorder: Status: Acute Code(s): F31.9 - Bipolar disorder, unspecified Plan 69-year-old female with past medical history of bipolar, PTSD, AFib, hypothyroidism, hypertension, LBBB, presented to [facility] [place] on 03/23/2025 for chau, paranoia, and auditory hallucinations. She notes that she had a verbal altercation immediately before presenting to the ED. She states that she received the call from her psychiatrist who inform her that she was returning a call regarding a voicemail she received from their home; the voicemail noted that the patient has not been sleeping and needed more medications. The patient inform her psychiatrist that she was unaware of the call which her may have made. She states that her is in charge of administering her medications and was giving her more of her medications than prescribed, and made her groggy. Therefore, she came the trazodone, without knowledge, and was not on the medication for 3 days; however, she slept adequately. Also, was upset after she recently told him she decided not to go to the appointment with the director of the home regarding her plan for cremation and that she change her MOLST from DNR to full code. She notes that her is controlling and does not want her to make decisions about her life. Therefore, she did some research on the Internet and confirmed that her has been a narcissist for the 30 years they been together. As the verbal altercation regarding her 's voicemail to her psychiatrist, which she was unaware of, escalated, the patient has called and asked her daughter to call 911, and she did. Patient was brought to the emergency department. She notes that she sleeps an average of 4-6 hours nightly. Sometimes, she would be awake, and not fall asleep at all, for 1-2 days; however, she does not recall the last time that happened. Per CARE team report, patient's reported that the patient had not slept for 3-4 days and stopped taking her psychotropic medications for about 3 weeks; there is a significant decline in her functioning. Patient denies SI, HI, AVH. She denies drugs or alcohol use. U tox was negative. BAL is 13. Formulation/Clinical reasoning: Bipolar 1 disorder with manic episode: Likely due to not taking her medications for about 3 weeks, leading to significant decline, including chau, paranoia, and functional impairment. Will continue current treatment regimen for now and will make adjustment as needed. She currently has UTI which may also contribute to her mental declines; she is currently treated with cefuroxime which is resistant to the current causative bacteria; will discontinue so fluoxetine and start nitrofurantoin for UTI. Hospital course: 03/28: Patient notes that she is in a good mood today. She had been taking her medications as prescribed. Her daughter is visiting and present. She notes that she slept last night. She denies SI/HI/AH/VH. Her daughter told healthcare social worker that she was very concerned about the patient who went to the bank in her nightgown and transferred 4000 dollars from her 's account into hers. She was subsequently brought home by the police from her friend's home. Continue current treatment regimen. 03/29 remains plesant but paranoid; will continue to see if restarting home regimen will be enough to bring her back to baseline; if not, will either increase doses or augment -may do better on Jamie 03/30: Continue current regimen and plans. 03/31: Continue current regimen and plans. 04/01: some reduction in paranoia; pt feeling differently about her , talking w/ him on the phone; she asked engineering writer change his status, saying she now wants him to come and visit her and wants to receive phone calls from from him. -transfer to [facility]; pt agrees 04/02 continue tx. will check EKG given qtc prolonging meds and hx of qtc prolongation. 04/03 continue tx. QTc 503 (506 on admit) cardiology consult for guidance in proceeding with her care. 04/04 decrease trazodone to 100mg po qhs. may add ativan at night time for sleep as needed. Will contact OP provider for collateral information. Pt used to be on risperidone, unclear why it was d/cr. may need mood stabilizer, did become more confused with depakote. renal function decreased in 77, but may consider lithium or carbamazepine. 04/05 pt refusing medical medications stating God does not want her to do so. Questioning her dx of DM and whether is true that BS have been elevated in the past month including worsening of A1C from 7% to 7.9% in last few months. jain and paranoid ideas towards and staff here. This engineering writer discussed with pt adding mood stabilizer, however, options between lithium and carbamazepine, given that pt had depakote in past but became more confused on it. If decide to go with lithium- keeping in mind pt also on lasix and losartan. or Carbamazepine lowers level of amiodarone and eliquis (and seroquel). seen by hospitalist today due to bilat edema started on lasix, added daily weights given HF. attempted to call OP provider but unable to leave message through [facility]. pt used to be on risperidone- unclear if d/cr due to EPS side effects. 04/06: refusing medical meds yesterday, took them today. appears to be doubting her delusional system yet remains compelled by it. encouraged to continue taking both medical meds as well as seroquel. slept 5 hours. Plan Admit to [facility]5. CV 15 minutes check. Diagnostics as needed. Collateral contact. Continue remainder of regime. Encouraged full milieu. Discharge planning. Reason for continued inpatient stay Substantial Risk for: inability to function Time Spent With Patient Time: Total time managing care of this patient today ____ minutes.
[2025-04-06 11:33] LABS: Glucose, Whole Blood 154 mg/dL (60-115)
[2025-04-06] MEDS: Artificial Tears 15 ML DROPS 1 DROP EYE-BOTH (11:49)
[2025-04-06 16:07] LABS: Glucose, Whole Blood 157 mg/dL (60-115)
[2025-04-06] MEDS: Rivaroxaban 20 MG TABLET PO (16:12)
[2025-04-06 20:00] VITALS: BP 143/78; PULSE 66; RESP 18; TEMP 36; O2SAT 98
[2025-04-06 20:18] LABS: Glucose, Whole Blood 166 mg/dL (60-115)
[2025-04-06] MEDS: Nystatin Powder 15 GM BOTTLE 1 APPL TOPICAL ×2 (20:26→23:12)
[2025-04-06] MEDS: traZODone HCL 100 MG TABLET PO (20:28)
[2025-04-06] MEDS: Acetaminophen 325 MG TABLET 975 MG PO (23:07)
[2025-04-07] MEDS: Artificial Tears 15 ML DROPS 1 DROP EYE-BOTH (05:32)
[2025-04-07] MEDS: Levothyroxine Sodium 150 MCG TABLET PO (05:33)
[2025-04-07 06:27] LABS: Glucose, Whole Blood 192 mg/dL (60-115)
[2025-04-07 07:49] VITALS: BP 116/63; PULSE 62; RESP 16; TEMP 36.6; O2SAT 97
[2025-04-07] MEDS: Amiodarone HCL 200 MG TABLET PO (08:40)
[2025-04-07] MEDS: Metoprolol Tartrate 25 MG TABLET 75 MG PO ×2 (08:40→20:58)
[2025-04-07] MEDS: QUEtiapine Fumarate 100 MG TABLET PO (08:40)
[2025-04-07] MEDS: QUEtiapine Fumarate 200 MG TABLET PO ×2 (08:41→20:58)
[2025-04-07] MEDS: Cholecalciferol (Vitamin D3) 25 MCG TABLET PO (08:41)
[2025-04-07] MEDS: Spironolactone 25 MG TABLET PO (08:41)
[2025-04-07] MEDS: Sacubitril/Valsartan 24/26 1 TAB TABLET PO ×2 (08:41→20:58)
[2025-04-07] MEDS: glipiZIDE 5 MG TABLET PO (08:41)
[2025-04-07] MEDS: Furosemide 40 MG TABLET PO (08:41)
[2025-04-07] MEDS: Insulin Lispro 100 UNIT/ML 3 ML VIAL SUBCUT ×4 (08:42→20:57)
[2025-04-07 11:28] LABS: Glucose, Whole Blood 172 mg/dL (60-115)
[2025-04-07 14:29] VITALS: BMI 42.8
--- NOTE | 2025-04-07 15:26 | P.PNPSI_ITS ---
Subjective Subjective Date of Service: 04/07/25 Reason For Visit: chau Interim History: doing good. just tired. resting in bed, no complaints or requests. per staff, suspicious. thinks her wants to kill her. pleasant, visible. FSBS 192. Mental Status Exam Mental Status Exam Narrative: Appearance: wearing own clothes, fair hygiene, in NAD Behavior: friendly Psychomotor: no agitation or retardation noted Speech: clear, normal rate/rhythm/volume, spontaneous TP: linear TC: no delusions or paranoia expressed Mood: not assessed Affect: constricted SI: none expressed HI: none expressed VH/AH: none expressed Insight/judgment: impaired due to psychiatric illness Memory/cog: alert, oriented x 3. Diagnostics Vital Signs (24Hr): Vital Signs - 24 hr 04/06/25 20:00 04/07/25 07:49 Temperature 96.8 F 97.8 F Pulse Rate 66 62 Respiratory Rate 18 16 Blood Pressure 143/78 H 116/63 Pulse Oximetry 98 97 Oxygen Delivery Method Room Air Room Air BMI result Body Mass Index 42.8 Labs 03/23/25 08:01 03/27/25 08:00 Labs: Laboratory Results - last 48 hr 04/05/25 04/06/25 04/06/25 19:51 06:07 08:26 POC Glucose 201 H 177 H 193 H 04/06/25 04/06/25 04/06/25 11:29 16:02 19:56 POC Glucose 154 H 157 H 166 H 04/07/25 04/07/25 06:15 11:24 POC Glucose 192 H 172 H Medications Medications Current Medications Acetaminophen (Acetaminophen 325 Mg Tablet) 975 mg PO DAILY PRN PRN Reason: Pain Last Admin: 04/06/25 23:07 Dose: 975 mg Acetaminophen (Acetaminophen 325 Mg Tablet) 650 mg PO Q6H PRN PRN Reason: Headache/Pain, Scale 1-10 Last Admin: 04/06/25 04:22 Dose: 650 mg Al Hydroxide/Mg Hydroxide (Magnesium Hydrox/Alum Hydrox 30 Ml Oral.Susp) 30 ml PO Q6H PRN PRN Reason: Heartburn/Nausea Amiodarone HCl (Amiodarone Hcl 200 Mg Tablet) 200 mg PO DAILY [facility] Last Admin: 04/07/25 08:40 Dose: 200 mg Artificial Tears (Artificial Tears 15 Ml Drops) 1 drop EYE-BOTH TID PRN PRN Reason: Dry Eyes Last Admin: 04/07/25 05:32 Dose: 1 drop Dextrose (Dextrose 50 % 25 Gm/50 Ml Syringe) 25 gm IVPUSH Q15M PRN; Protocol PRN Reason: per Hypoglycemia Standing Ord. Furosemide (Furosemide 40 Mg Tablet) 40 mg PO DAILY [facility]; Protocol Last Admin: 04/07/25 08:41 Dose: 40 mg Glipizide (Glipizide 5 Mg Tablet) 5 mg PO DAILY [facility] Last Admin: 04/07/25 08:41 Dose: 5 mg Glucose (Glucose Gel 15 Gm Gel..Gram.) 15 gm PO Q15M PRN; Protocol PRN Reason: per Hypoglycemia Standing Ord. Insulin Human Lispro (Insulin Lispro 100 Unit/Ml 3 Ml Vial) 0 unit SUBCUT QIDACHS [facility]; Protocol Last Admin: 04/07/25 11:34 Dose: 2 unit Levothyroxine Sodium (Levothyroxine Sodium 150 Mcg Tablet) 150 mcg PO DAILY@0600 [facility] Last Admin: 04/07/25 05:33 Dose: 150 mcg Magnesium Hydroxide (Milk Of Magnesia 30 Ml Oral.Susp) 30 ml PO DAILY PRN PRN Reason: Constipation Metoprolol Tartrate (Metoprolol Tartrate 25 Mg Tablet) 75 mg PO BID [facility]; Protocol Last Admin: 04/07/25 08:40 Dose: 75 mg Nicotine (Nicotine 21 Mg Patch.Td24) 21 mg TRANSDERMA DAILY PRN PRN Reason: smoking cessation Nicotine Polacrilex (Nicotine Polacrilex 2 Mg Gum) 4 mg BUCCAL Q2H PRN PRN Reason: Nicotine Cravings Nystatin (Nystatin Powder 15 Gm Bottle) 1 appl TOPICAL BID [facility]; Protocol Last Admin: 04/07/25 14:37 Dose: Not Given Olanzapine (Olanzapine 5 Mg Tablet) 5 mg PO TID PRN PRN Reason: agitation Last Admin: 04/06/25 01:46 Dose: 5 mg Quetiapine Fumarate (Quetiapine Fumarate 100 Mg Tablet) 100 mg PO DAILY [facility] Last Admin: 04/07/25 08:40 Dose: 100 mg Quetiapine Fumarate (Quetiapine Fumarate 200 Mg Tablet) 200 mg PO BID [facility] Last Admin: 04/07/25 08:41 Dose: 200 mg Rivaroxaban (Rivaroxaban 20 Mg Tablet) 20 mg PO DAILY@1700 [facility] Last Admin: 04/06/25 16:12 Dose: 20 mg Sacubitril/Valsartan (Sacubitril/Valsartan 1 Tab Tablet) 1 tab PO BID [facility]; Protocol Last Admin: 04/07/25 08:41 Dose: 1 tab Spironolactone (Spironolactone 25 Mg Tablet) 25 mg PO DAILY [facility]; Protocol Last Admin: 04/07/25 08:41 Dose: 25 mg Trazodone HCl (Trazodone Hcl 100 Mg Tablet) 100 mg PO BEDTIME [facility] Last Admin: 04/06/25 20:28 Dose: 100 mg Vitamin D (Cholecalciferol (Vitamin D3) 25 Mcg Tablet) 25 mcg PO DAILY [facility] Last Admin: 04/07/25 08:41 Dose: 25 mcg Allergies Allergies Allergy/AdvReac Type Severity Reaction Status Date / Time divalproex sodium Allergy Mild diarrhea, Verified 03/23/25 07:44 [From Depakote] brain fog gluten Allergy Mild Unknown Verified 03/23/25 07:44 hazelnut Allergy Unknown Unknown Verified 01/15/25 10:01 shellfish derived Allergy Unknown Unknown Verified 01/15/25 10:01 sesame seeds Allergy Unknown Unknown Uncoded 01/15/25 10:01 Assessment & Plan Assessment & Plan (1) Bipolar 1 disorder: Status: Acute Code(s): F31.9 - Bipolar disorder, unspecified Plan 69-year-old female with past medical history of bipolar, PTSD, AFib, hypothyroidism, hypertension, LBBB, presented to [facility] via ambulance on 03/23/2025 for chau, paranoia, and auditory hallucinations. She notes that she had a verbal altercation immediately before presenting to the ED. She states that she received the call from her psychiatrist who inform her that she was returning a call regarding a voicemail she received from their home; the voicemail noted that the patient has not been sleeping and needed more medications. The patient inform her psychiatrist that she was unaware of the call which her may have made. She states that her is in charge of administering her medications and was giving her more of her medications than prescribed, and made her groggy. Therefore, she came the trazodone, without knowledge, and was not on the medication for 3 days; however, she slept adequately. Also, was upset after she recently told him she decided not to go to the appointment with the director of the home regarding her plan for cremation and that she change her MOLST from DNR to full code. She notes that her is controlling and does not want her to make decisions about her life. Therefore, she did some research on the Internet and confirmed that her has been a narcissist for the 30 years they been together. As the verbal altercation regarding her 's voicemail to her psychiatrist, which she was unaware of, escalated, the patient has called and asked her daughter to call 911, and she did. Patient was brought to the emergency department. She notes that she sleeps an average of 4-6 hours nightly. Sometimes, she would be awake, and not fall asleep at all, for 1-2 days; however, she does not recall the last time that happened. Per CARE team report, patient's reported that the patient had not slept for 3-4 days and stopped taking her psychotropic medications for about 3 weeks; there is a significant decline in her functioning. Patient denies SI, HI, AVH. She denies drugs or alcohol use. U tox was negative. BAL is 13. Formulation/Clinical reasoning: Bipolar 1 disorder with manic episode: Likely due to not taking her medications for about 3 weeks, leading to significant decline, including chau, paranoia, and functional impairment. Will continue current treatment regimen for now and will make adjustment as needed. She currently has UTI which may also contribute to her mental declines; she is currently treated with cefuroxime which is resistant to the current causative bacteria; will discontinue so fluoxetine and start nitrofurantoin for UTI. Hospital course: 03/28: Patient notes that she is in a good mood today. She had been taking her medications as prescribed. Her daughter is visiting and present. She notes that she slept last night. She denies SI/HI/AH/VH. Her daughter told social media campaign manager that she was very concerned about the patient who went to the bank in her nightgown and transferred 4000 dollars from her 's account into hers. She was subsequently brought home by the police from her friend's home. Continue current treatment regimen. 03/29 remains plesant but paranoid; will continue to see if restarting home regimen will be enough to bring her back to baseline; if not, will either increase doses or augment -may do better on Jamie 03/30: Continue current regimen and plans. 03/31: Continue current regimen and plans. 04/01: some reduction in paranoia; pt feeling differently about her , talking w/ him on the phone; she asked typewriter ribbon winder change his status, saying she now wants him to come and visit her and wants to receive phone calls from from him. -transfer to [facility]; pt agrees 04/02 continue tx. will check EKG given qtc prolonging meds and hx of qtc prolongation. 04/03 continue tx. QTc 503 (506 on admit) cardiology consult for guidance in proceeding with her care. 04/04 decrease trazodone to 100mg po qhs. may add ativan at night time for sleep as needed. Will contact OP provider for collateral information. Pt used to be on risperidone, unclear why it was d/cr. may need mood stabilizer, did become more confused with depakote. renal function decreased in 77, but may consider lithium or carbamazepine. 04/05 pt refusing medical medications stating God does not want her to do so. Questioning her dx of DM and whether is true that BS have been elevated in the past month including worsening of A1C from 7% to 7.9% in last few months. anabaptism and paranoid ideas towards and staff here. This typewriter ribbon winder discussed with pt adding mood stabilizer, however, options between lithium and carbamazepine, given that pt had depakote in past but became more confused on it. If decide to go with lithium- keeping in mind pt also on lasix and losartan. or Carbamazepine lowers level of amiodarone and eliquis (and seroquel). seen by hospitalist today due to bilat edema started on lasix, added daily weights given HF. attempted to call OP provider but unable to leave message through [facility]. pt used to be on risperidone- unclear if d/cr due to EPS side effects. 04/06: refusing medical meds yesterday, took them today. appears to be doubting her delusional system yet remains compelled by it. encouraged to continue taking both medical meds as well as seroquel. slept 5 hours. 04/07: seems to be doing better, taking DM medications and not preoccupied with delusional material. continue current mgmt. Plan Admit to M5. CV 15 minutes check. Diagnostics as needed. Collateral contact. Continue remainder of regime. Encouraged full milieu. Discharge planning. Reason for continued inpatient stay Substantial Risk for: inability to function Time Spent With Patient Time: Total time managing care of this patient today ____ minutes.
[2025-04-07 16:26] LABS: Glucose, Whole Blood 189 mg/dL (60-115)
[2025-04-07] MEDS: Rivaroxaban 20 MG TABLET PO (16:31)
[2025-04-07 19:55] LABS: Glucose, Whole Blood 169 mg/dL (60-115)
[2025-04-07 20:00] VITALS: BP 105/84; PULSE 89; TEMP 36.4; O2SAT 95
[2025-04-07] MEDS: traZODone HCL 100 MG TABLET PO (20:58)
[2025-04-08] MEDS: Levothyroxine Sodium 150 MCG TABLET PO (06:27)
[2025-04-08] MEDS: Artificial Tears 15 ML DROPS 1 DROP EYE-BOTH (06:35)
[2025-04-08 06:38] LABS: Glucose, Whole Blood 209 mg/dL (60-115)
[2025-04-08] MEDS: Insulin Lispro 100 UNIT/ML 3 ML VIAL SUBCUT ×3 (08:13→20:12)
[2025-04-08 08:16] VITALS: BP 116/67; PULSE 65; RESP 20; TEMP 36.2; O2SAT 96
[2025-04-08] MEDS: Metoprolol Tartrate 25 MG TABLET 75 MG PO ×2 (08:18→20:14)
[2025-04-08] MEDS: QUEtiapine Fumarate 200 MG TABLET PO ×2 (08:19→20:15)
[2025-04-08] MEDS: QUEtiapine Fumarate 100 MG TABLET PO (08:19)
[2025-04-08] MEDS: Furosemide 40 MG TABLET PO (08:19)
[2025-04-08] MEDS: glipiZIDE 5 MG TABLET PO (08:20)
[2025-04-08] MEDS: Spironolactone 25 MG TABLET PO (08:20)
[2025-04-08] MEDS: Cholecalciferol (Vitamin D3) 25 MCG TABLET PO (08:20)
[2025-04-08] MEDS: Sacubitril/Valsartan 24/26 1 TAB TABLET PO ×2 (08:20→20:15)
[2025-04-08] MEDS: Amiodarone HCL 200 MG TABLET PO (08:20)
--- NOTE | 2025-04-08 09:26 | HO.PSYCHPN ---
Subjective Subjective Date of Service: 04/08/25 Reason For Visit: chau Subjective Notes: Conditional Voluntary Interim History: Pt slept through the night. She presents as irritable this morning, reports she was trapped and lied about theme of the group. She reports during group there was mentioned of Pride month and she hopes ponce people repent and change before they . She does report hearing God and following what he is telling her today. She reports she declines insulin when God tells her is not good or suspicion of poison. She is upset that her called and she agreed to speak with him- She denies SI/HI. We discussed considering adding mood stabilizer. Review of Systems Review of Systems Denies any shortness of breath, chest pain, dizziness, lightheadedness, abdominal pain or discomfort, nausea vomiting or diarrhea Yes all other systems are reviewed and are negative Constitutional: Reports as per HPI and Reports no additional constitutional complaints Eyes: Reports as per HPI and Denies no additional eye complaints Denies system reviewed and no additional complaints, except as documented and Reports as per HPI Cardiovascular: Reports as per HPI, Reports no additional cardiovascular complaints, Denies acrocyanosis, Denies cool extremities, Denies chest pain, Denies leg edema, Denies lightheadedness, Denies palpitations and Denies dyspnea Respiratory: Reports as per HPI, Denies no additional respiratory complaints and Denies dyspnea Gastrointestinal: Reports as per HPI and Denies no additional gastrointestinal complaints Musculoskeletal: Reports no additional musculoskeletal complaints and Reports as per HPI Skin/Breast: Reports system reviewed and no additional complaints, except as docu Reports system reviewed and no additional complaints, except as documented and Reports as per HPI Psychiatric: Reports no additional psychiatric complaints and Reports as per HPI Endocrine: Reports no additional endocrine complaints, Reports as per HPI and Denies palpitations Hematologic/Lymphatic: Reports no additional hematologic/lymphatic complaints and Reports as per HPI Allergic/Immunologic: Reports no additional allergic/immunologic complaints and Reports as per HPI Mental Status Exam Mental Status Exam Narrative: Appearance: wearing own clothes, fair hygiene, in NAD Behavior: friendly Psychomotor: no agitation or retardation noted Speech: clear, normal rate/rhythm/volume, spontaneous TP: linear TC: no delusions or paranoia expressed Mood: not assessed Affect: constricted SI: none expressed HI: none expressed VH/AH: none expressed Insight/judgment: impaired due to psychiatric illness Memory/cog: alert, oriented x 3. Diagnostics Vital Signs (24Hr): Vital Signs - 24 hr 04/07/25 20:00 04/08/25 08:16 Temperature 97.5 F 97.2 F Pulse Rate 89 65 Respiratory Rate 20 Blood Pressure 105/84 116/67 Pulse Oximetry 95 96 Oxygen Delivery Method Room Air Room Air BMI result Body Mass Index 42.8 Labs 03/23/25 08:01 03/27/25 08:00 Labs: Laboratory Results - last 48 hr 04/06/25 04/06/25 04/06/25 11:29 16:02 19:56 POC Glucose 154 H 157 H 166 H 04/07/25 04/07/25 04/07/25 06:15 11:24 16:21 POC Glucose 192 H 172 H 189 H 04/07/25 04/08/25 19:48 06:25 POC Glucose 169 H 209 H Medications Medications Current Medications Acetaminophen (Acetaminophen 325 Mg Tablet) 975 mg PO DAILY PRN PRN Reason: Pain Last Admin: 04/06/25 23:07 Dose: 975 mg Acetaminophen (Acetaminophen 325 Mg Tablet) 650 mg PO Q6H PRN PRN Reason: Headache/Pain, Scale 1-10 Last Admin: 04/06/25 04:22 Dose: 650 mg Al Hydroxide/Mg Hydroxide (Magnesium Hydrox/Alum Hydrox 30 Ml Oral.Susp) 30 ml PO Q6H PRN PRN Reason: Heartburn/Nausea Amiodarone HCl (Amiodarone Hcl 200 Mg Tablet) 200 mg PO DAILY [facility] Last Admin: 04/08/25 08:20 Dose: 200 mg Artificial Tears (Artificial Tears 15 Ml Drops) 1 drop EYE-BOTH TID PRN PRN Reason: Dry Eyes Last Admin: 04/08/25 06:35 Dose: 1 drop Dextrose (Dextrose 50 % 25 Gm/50 Ml Syringe) 25 gm IVPUSH Q15M PRN; Protocol PRN Reason: per Hypoglycemia Standing Ord. Furosemide (Furosemide 40 Mg Tablet) 40 mg PO DAILY [facility]; Protocol Last Admin: 04/08/25 08:19 Dose: 40 mg Glipizide (Glipizide 5 Mg Tablet) 5 mg PO DAILY [facility] Last Admin: 04/08/25 08:20 Dose: 5 mg Glucose (Glucose Gel 15 Gm Gel..Gram.) 15 gm PO Q15M PRN; Protocol PRN Reason: per Hypoglycemia Standing Ord. Insulin Human Lispro (Insulin Lispro 100 Unit/Ml 3 Ml Vial) 0 unit SUBCUT QIDACHS [facility]; Protocol Last Admin: 04/08/25 08:13 Dose: 4 unit Levothyroxine Sodium (Levothyroxine Sodium 150 Mcg Tablet) 150 mcg PO DAILY@0600 [facility] Last Admin: 04/08/25 06:27 Dose: 150 mcg Magnesium Hydroxide (Milk Of Magnesia 30 Ml Oral.Susp) 30 ml PO DAILY PRN PRN Reason: Constipation Metoprolol Tartrate (Metoprolol Tartrate 25 Mg Tablet) 75 mg PO BID [facility]; Protocol Last Admin: 04/08/25 08:18 Dose: 75 mg Nicotine (Nicotine 21 Mg Patch.Td24) 21 mg TRANSDERMA DAILY PRN PRN Reason: smoking cessation Nicotine Polacrilex (Nicotine Polacrilex 2 Mg Gum) 4 mg BUCCAL Q2H PRN PRN Reason: Nicotine Cravings Nystatin (Nystatin Powder 15 Gm Bottle) 1 appl TOPICAL BID [facility]; Protocol Last Admin: 04/07/25 21:01 Dose: Not Given Olanzapine (Olanzapine 5 Mg Tablet) 5 mg PO TID PRN PRN Reason: agitation Last Admin: 04/06/25 01:46 Dose: 5 mg Quetiapine Fumarate (Quetiapine Fumarate 100 Mg Tablet) 100 mg PO DAILY [facility] Last Admin: 04/08/25 08:19 Dose: 100 mg Quetiapine Fumarate (Quetiapine Fumarate 200 Mg Tablet) 200 mg PO BID [facility] Last Admin: 04/08/25 08:19 Dose: 200 mg Rivaroxaban (Rivaroxaban 20 Mg Tablet) 20 mg PO DAILY@1700 [facility] Last Admin: 04/07/25 16:31 Dose: 20 mg Sacubitril/Valsartan (Sacubitril/Valsartan 1 Tab Tablet) 1 tab PO BID [facility]; Protocol Last Admin: 04/08/25 08:20 Dose: 1 tab Spironolactone (Spironolactone 25 Mg Tablet) 25 mg PO DAILY [facility]; Protocol Last Admin: 04/08/25 08:20 Dose: 25 mg Trazodone HCl (Trazodone Hcl 100 Mg Tablet) 100 mg PO BEDTIME [facility] Last Admin: 04/07/25 20:58 Dose: 100 mg Vitamin D (Cholecalciferol (Vitamin D3) 25 Mcg Tablet) 25 mcg PO DAILY [facility] Last Admin: 04/08/25 08:20 Dose: 25 mcg Allergies Allergies Allergy/AdvReac Type Severity Reaction Status Date / Time divalproex sodium Allergy Mild diarrhea, Verified 03/23/25 07:44 [From Depakote] brain fog gluten Allergy Mild Unknown Verified 03/23/25 07:44 hazelnut Allergy Unknown Unknown Verified 01/15/25 10:01 shellfish derived Allergy Unknown Unknown Verified 01/15/25 10:01 sesame seeds Allergy Unknown Unknown Uncoded 01/15/25 10:01 Assessment & Plan Assessment & Plan (1) Bipolar 1 disorder: Status: Acute Code(s): F31.9 - Bipolar disorder, unspecified Plan 69-year-old female with past medical history of bipolar, PTSD, AFib, hypothyroidism, hypertension, LBBB, presented [place] [facility] [place] on 03/23/2025 for chau, paranoia, and auditory hallucinations. She notes that she had a verbal altercation immediately before presenting to the ED. She states that she received the call from her psychiatrist who inform her that she was returning a call regarding a voicemail she received from their home; the voicemail noted that the patient has not been sleeping and needed more medications. The patient inform her psychiatrist that she was unaware of the call which her may have made. She states that her is in charge of administering her medications and was giving her more of her medications than prescribed, and made her groggy. Therefore, she came the trazodone, without knowledge, and was not on the medication for 3 days; however, she slept adequately. Also, was upset after she recently told him she decided not to go to the appointment with the director of the home regarding her plan for cremation and that she change her MOLST from DNR to full code. She notes that her is controlling and does not want her to make decisions about her life. Therefore, she did some research on the Internet and confirmed that her has been a narcissist for the 30 years they been together. As the verbal altercation regarding her 's voicemail to her psychiatrist, which she was unaware of, escalated, the patient has called and asked her daughter to call 911, and she did. Patient was brought to the emergency department. She notes that she sleeps an average of 4-6 hours nightly. Sometimes, she would be awake, and not fall asleep at all, for 1-2 days; however, she does not recall the last time that happened. Per CARE team report, patient's reported that the patient had not slept for 3-4 days and stopped taking her psychotropic medications for about 3 weeks; there is a significant decline in her functioning. Patient denies SI, HI, AVH. She denies drugs or alcohol use. U tox was negative. BAL is 13. Formulation/Clinical reasoning: Bipolar 1 disorder with manic episode: Likely due to not taking her medications for about 3 weeks, leading to significant decline, including chau, paranoia, and functional impairment. Will continue current treatment regimen for now and will make adjustment as needed. She currently has UTI which may also contribute to her mental declines; she is currently treated with cefuroxime which is resistant to the current causative bacteria; will discontinue so fluoxetine and start nitrofurantoin for UTI. Hospital course: 03/28: Patient notes that she is in a good mood today. She had been taking her medications as prescribed. Her daughter is visiting and present. She notes that she slept last night. She denies SI/HI/AH/VH. Her daughter told social media editor that she was very concerned about the patient who went to the bank [facility] and transferred 4000 dollars from her 's account into hers. She was subsequently brought home by the police from her friend's home. Continue current treatment regimen. 03/29 remains plesant but paranoid; will continue to see if restarting home regimen will be enough to bring her back to baseline; if not, will either increase doses or augment -may do better on Jamie 03/30: Continue current regimen and plans. 03/31: Continue current regimen and plans. 04/01: some reduction in paranoia; pt feeling differently about her , talking w/ him on the phone; she asked comic writer change his status, saying she now wants him to come and visit her and wants to receive phone calls from from him. -transfer to [facility]; pt agrees 04/02 continue tx. will check EKG given qtc prolonging meds and hx of qtc prolongation. 04/03 continue tx. QTc 503 (506 on admit) cardiology consult for guidance in proceeding with her care. 04/04 decrease trazodone to 100mg po qhs. may add ativan at night time for sleep as needed. Will contact OP provider for collateral information. Pt used to be on risperidone, unclear why it was d/cr. may need mood stabilizer, did become more confused with depakote. renal function decreased in 77, but may consider lithium or carbamazepine. 04/05 pt refusing medical medications stating God does not want her to do so. Questioning her dx of DM and whether is true that BS have been elevated in the past month including worsening of A1C from 7% to 7.9% in last few months. yazdanism and paranoid ideas towards and staff here. This comic writer discussed with pt adding mood stabilizer, however, options between lithium and carbamazepine, given that pt had depakote in past but became more confused on it. If decide to go with lithium- keeping in mind pt also on lasix and losartan. or Carbamazepine lowers level of amiodarone and eliquis (and seroquel). seen by hospitalist today due to bilat edema started on lasix, added daily weights given HF. attempted to call OP provider but unable to leave message through [facility]. pt used to be on risperidone- unclear if d/cr due to EPS side effects. 04/06: refusing medical meds yesterday, took them today. appears to be doubting her delusional system yet remains compelled by it. encouraged to continue taking both medical meds as well as seroquel. slept 5 hours. 04/07: seems to be doing better, taking DM medications and not preoccupied with delusional material. continue current mgmt. 04/08 continue tx. consider adding carbamazepine as mood stabilizer, continue seroquel Plan Admit to M5. CV 15 minutes check. Diagnostics as needed. Collateral contact. Continue remainder of regime. Encouraged full milieu. Discharge planning. Reason for continued inpatient stay Substantial Risk for: inability to function Time Spent With Patient Time: Total time managing care of this patient today ____ minutes.
[2025-04-08] MEDS: Acetaminophen 325 MG TABLET 975 MG PO (09:27)
[2025-04-08] MEDS: Nystatin Powder 15 GM BOTTLE 1 APPL TOPICAL ×2 (09:51→20:15)
[2025-04-08 11:37] LABS: Glucose, Whole Blood 176 mg/dL (60-115)
[2025-04-08 15:42] VITALS: BMI 42.6
[2025-04-08 16:36] LABS: Glucose, Whole Blood 141 mg/dL (60-115)
[2025-04-08] MEDS: Rivaroxaban 20 MG TABLET PO (18:57)
[2025-04-08 20:00] VITALS: BP 123/58; PULSE 65; TEMP 36.3; O2SAT 98
[2025-04-08] MEDS: traZODone HCL 100 MG TABLET PO (20:15)
[2025-04-08 20:37] LABS: Glucose, Whole Blood 181 mg/dL (60-115)
[2025-04-09] MEDS: Levothyroxine Sodium 150 MCG TABLET PO (05:35)
[2025-04-09 06:14] LABS: Glucose, Whole Blood 179 mg/dL (60-115)
[2025-04-09 08:00] VITALS: BP 120/90; PULSE 70; RESP 16; TEMP 2.4; TEMP 36.4; O2SAT 96; BMI 42.5
[2025-04-09] MEDS: Insulin Lispro 100 UNIT/ML 3 ML VIAL SUBCUT ×4 (08:17→20:29)
[2025-04-09] MEDS: Sacubitril/Valsartan 24/26 1 TAB TABLET PO ×2 (08:19→20:30)
[2025-04-09] MEDS: QUEtiapine Fumarate 200 MG TABLET PO ×2 (08:19→20:30)
[2025-04-09] MEDS: Metoprolol Tartrate 25 MG TABLET 75 MG PO ×2 (08:19→20:29)
[2025-04-09] MEDS: Cholecalciferol (Vitamin D3) 25 MCG TABLET PO (08:20)
[2025-04-09] MEDS: Amiodarone HCL 200 MG TABLET PO (08:20)
[2025-04-09] MEDS: glipiZIDE 5 MG TABLET PO (08:20)
[2025-04-09] MEDS: Furosemide 40 MG TABLET PO (08:20)
[2025-04-09] MEDS: Spironolactone 25 MG TABLET PO (08:20)
[2025-04-09] MEDS: QUEtiapine Fumarate 100 MG TABLET PO (08:21)
--- NOTE | 2025-04-09 11:02 | HO.PSYCHPN ---
Subjective Subjective Date of Service: 04/09/25 Reason For Visit: chau Interim History: Pt slept through the night. She reports she feels a bit calmer, still religiously preoccupied. She is upset with her as he does not seem to be worried about her. She does not want to talk to him anymore. She denies SI/HI. She has been taking medications more consistently. She started carbamazepine for mood stabilization. Review of Systems Review of Systems Denies any shortness of breath, chest pain, dizziness, lightheadedness, abdominal pain or discomfort, nausea vomiting or diarrhea Yes all other systems are reviewed and are negative Constitutional: Reports as per HPI and Reports no additional constitutional complaints Eyes: Reports as per HPI and Denies no additional eye complaints Denies system reviewed and no additional complaints, except as documented and Reports as per HPI Cardiovascular: Reports as per HPI, Reports no additional cardiovascular complaints, Denies acrocyanosis, Denies cool extremities, Denies chest pain, Denies leg edema, Denies lightheadedness, Denies palpitations and Denies dyspnea Respiratory: Reports as per HPI, Denies no additional respiratory complaints and Denies dyspnea Gastrointestinal: Reports as per HPI and Denies no additional gastrointestinal complaints Musculoskeletal: Reports no additional musculoskeletal complaints and Reports as per HPI Skin/Breast: Reports system reviewed and no additional complaints, except as docu Reports system reviewed and no additional complaints, except as documented and Reports as per HPI Psychiatric: Reports no additional psychiatric complaints and Reports as per HPI Endocrine: Reports no additional endocrine complaints, Reports as per HPI and Denies palpitations Hematologic/Lymphatic: Reports no additional hematologic/lymphatic complaints and Reports as per HPI Allergic/Immunologic: Reports no additional allergic/immunologic complaints and Reports as per HPI Mental Status Exam Mental Status Exam Narrative: Appearance: wearing own clothes, fair hygiene, in NAD Behavior: friendly Psychomotor: no agitation or retardation noted Speech: clear, normal rate/rhythm/volume, spontaneous TP: linear TC: no delusions or paranoia expressed Mood: not assessed Affect: constricted SI: none expressed HI: none expressed VH/AH: none expressed Insight/judgment: impaired due to psychiatric illness Memory/cog: alert, oriented x 3. Diagnostics Vital Signs (24Hr): Vital Signs - 24 hr 04/08/25 20:00 04/09/25 08:00 Temperature 97.3 F 36.4 F L Pulse Rate 65 70 Respiratory Rate 16 Blood Pressure 123/58 L 120/90 H Pulse Oximetry 98 96 Oxygen Delivery Method Room Air Room Air BMI result Body Mass Index 42.5 Labs 03/23/25 08:01 03/27/25 08:00 Labs: Laboratory Results - last 48 hr 04/07/25 04/07/25 04/07/25 11:24 16:21 19:48 POC Glucose 172 H 189 H 169 H 04/08/25 04/08/25 04/08/25 06:25 11:33 16:32 POC Glucose 209 H 176 H 141 H 04/08/25 04/09/25 20:03 06:07 POC Glucose 181 H 179 H Medications Medications Current Medications Acetaminophen (Acetaminophen 325 Mg Tablet) 975 mg PO DAILY PRN PRN Reason: Pain Last Admin: 04/08/25 09:27 Dose: 975 mg Acetaminophen (Acetaminophen 325 Mg Tablet) 650 mg PO Q6H PRN PRN Reason: Headache/Pain, Scale 1-10 Last Admin: 04/06/25 04:22 Dose: 650 mg Al Hydroxide/Mg Hydroxide (Magnesium Hydrox/Alum Hydrox 30 Ml Oral.Susp) 30 ml PO Q6H PRN PRN Reason: Heartburn/Nausea Amiodarone HCl (Amiodarone Hcl 200 Mg Tablet) 200 mg PO DAILY [facility] Last Admin: 04/09/25 08:20 Dose: 200 mg Artificial Tears (Artificial Tears 15 Ml Drops) 1 drop EYE-BOTH TID PRN PRN Reason: Dry Eyes Last Admin: 04/08/25 06:35 Dose: 1 drop Carbamazepine (Carbamazepine 200 Mg Tablet) 200 mg PO BID [facility] Dextrose (Dextrose 50 % 25 Gm/50 Ml Syringe) 25 gm IVPUSH Q15M PRN; Protocol PRN Reason: per Hypoglycemia Standing Ord. Furosemide (Furosemide 40 Mg Tablet) 40 mg PO DAILY [facility]; Protocol Last Admin: 04/09/25 08:20 Dose: 40 mg Glipizide (Glipizide 5 Mg Tablet) 5 mg PO DAILY [facility] Last Admin: 04/09/25 08:20 Dose: 5 mg Glucose (Glucose Gel 15 Gm Gel..Gram.) 15 gm PO Q15M PRN; Protocol PRN Reason: per Hypoglycemia Standing Ord. Insulin Human Lispro (Insulin Lispro 100 Unit/Ml 3 Ml Vial) 0 unit SUBCUT QIDACHS [facility]; Protocol Last Admin: 04/09/25 08:17 Dose: 2 unit Levothyroxine Sodium (Levothyroxine Sodium 150 Mcg Tablet) 150 mcg PO DAILY@0600 [facility] Last Admin: 04/09/25 05:35 Dose: 150 mcg Magnesium Hydroxide (Milk Of Magnesia 30 Ml Oral.Susp) 30 ml PO DAILY PRN PRN Reason: Constipation Metoprolol Tartrate (Metoprolol Tartrate 25 Mg Tablet) 75 mg PO BID [facility]; Protocol Last Admin: 04/09/25 08:19 Dose: 75 mg Nicotine (Nicotine 21 Mg Patch.Td24) 21 mg TRANSDERMA DAILY PRN PRN Reason: smoking cessation Nicotine Polacrilex (Nicotine Polacrilex 2 Mg Gum) 4 mg BUCCAL Q2H PRN PRN Reason: Nicotine Cravings Nystatin (Nystatin Powder 15 Gm Bottle) 1 appl TOPICAL BID [facility]; Protocol Last Admin: 04/08/25 20:15 Dose: 1 appl Olanzapine (Olanzapine 5 Mg Tablet) 5 mg PO TID PRN PRN Reason: agitation Last Admin: 04/06/25 01:46 Dose: 5 mg Quetiapine Fumarate (Quetiapine Fumarate 100 Mg Tablet) 100 mg PO DAILY [facility] Last Admin: 04/09/25 08:21 Dose: 100 mg Quetiapine Fumarate (Quetiapine Fumarate 200 Mg Tablet) 200 mg PO BID [facility] Last Admin: 04/09/25 08:19 Dose: 200 mg Rivaroxaban (Rivaroxaban 20 Mg Tablet) 20 mg PO DAILY@1700 [facility] Last Admin: 04/08/25 18:57 Dose: 20 mg Sacubitril/Valsartan (Sacubitril/Valsartan 1 Tab Tablet) 1 tab PO BID [facility]; Protocol Last Admin: 04/09/25 08:19 Dose: 1 tab Spironolactone (Spironolactone 25 Mg Tablet) 25 mg PO DAILY [facility]; Protocol Last Admin: 04/09/25 08:20 Dose: 25 mg Trazodone HCl (Trazodone Hcl 100 Mg Tablet) 100 mg PO BEDTIME [facility] Last Admin: 04/08/25 20:15 Dose: 100 mg Vitamin D (Cholecalciferol (Vitamin D3) 25 Mcg Tablet) 25 mcg PO DAILY [facility] Last Admin: 04/09/25 08:20 Dose: 25 mcg Allergies Allergies Allergy/AdvReac Type Severity Reaction Status Date / Time divalproex sodium Allergy Mild diarrhea, Verified 03/23/25 07:44 [From Depakote] brain fog gluten Allergy Mild Unknown Verified 03/23/25 07:44 hazelnut Allergy Unknown Unknown Verified 01/15/25 10:01 shellfish derived Allergy Unknown Unknown Verified 01/15/25 10:01 sesame seeds Allergy Unknown Unknown Uncoded 01/15/25 10:01 Assessment & Plan Assessment & Plan (1) Bipolar 1 disorder: Status: Acute Code(s): F31.9 - Bipolar disorder, unspecified Plan 69-year-old female with past medical history of bipolar, PTSD, AFib, hypothyroidism, hypertension, LBBB, presented to [facility] via ambulance on 03/23/2025 for chau, paranoia, and auditory hallucinations. She notes that she had a verbal altercation immediately before presenting to the ED. She states that she received the call from her psychiatrist who inform her that she was returning a call regarding a voicemail she received from their home; the voicemail noted that the patient has not been sleeping and needed more medications. The patient inform her psychiatrist that she was unaware of the call which her may have made. She states that her is in charge of administering her medications and was giving her more of her medications than prescribed, and made her groggy. Therefore, she came the trazodone, without knowledge, and was not on the medication for 3 days; however, she slept adequately. Also, was upset after she recently told him she decided not to go to the appointment with the director of the home regarding her plan for cremation and that she change her MOLST from DNR to full code. She notes that her is controlling and does not want her to make decisions about her life. Therefore, she did some research on the Internet and confirmed that her has been a narcissist for the 30 years they been together. As the verbal altercation regarding her 's voicemail to her psychiatrist, which she was unaware of, escalated, the patient has called and asked her daughter to call 911, and she did. Patient was brought to the emergency department. She notes that she sleeps an average of 4-6 hours nightly. Sometimes, she would be awake, and not fall asleep at all, for 1-2 days; however, she does not recall the last time that happened. Per CARE team report, patient's reported that the patient had not slept for 3-4 days and stopped taking her psychotropic medications for about 3 weeks; there is a significant decline in her functioning. Patient denies SI, HI, AVH. She denies drugs or alcohol use. U tox was negative. BAL is 13. Formulation/Clinical reasoning: Bipolar 1 disorder with manic episode: Likely due to not taking her medications for about 3 weeks, leading to significant decline, including chau, paranoia, and functional impairment. Will continue current treatment regimen for now and will make adjustment as needed. She currently has UTI which may also contribute to her mental declines; she is currently treated with cefuroxime which is resistant to the current causative bacteria; will discontinue so fluoxetine and start nitrofurantoin for UTI. Hospital course: 03/28: Patient notes that she is in a good mood today. She had been taking her medications as prescribed. Her daughter is visiting and present. She notes that she slept last night. She denies SI/HI/AH/VH. Her daughter told director social welfare that she was very concerned about the patient who went to the bank in her nightgown and transferred 4000 dollars from her 's account into hers. She was subsequently brought home by the police from her friend's home. Continue current treatment regimen. 03/29 remains plesant but paranoid; will continue to see if restarting home regimen will be enough to bring her back to baseline; if not, will either increase doses or augment -may do better on Jamie 03/30: Continue current regimen and plans. 03/31: Continue current regimen and plans. 04/01: some reduction in paranoia; pt feeling differently about her , talking w/ him on the phone; she asked flex o writer operator change his status, saying she now wants him to come and visit her and wants to receive phone calls from from him. -transfer to [facility]; pt agrees 04/02 continue tx. will check EKG given qtc prolonging meds and hx of qtc prolongation. 04/03 continue tx. QTc 503 (506 on admit) cardiology consult for guidance in proceeding with her care. 04/04 decrease trazodone to 100mg po qhs. may add ativan at night time for sleep as needed. Will contact OP provider for collateral information. Pt used to be on risperidone, unclear why it was d/cr. may need mood stabilizer, did become more confused with depakote. renal function decreased in 77, but may consider lithium or carbamazepine. 04/05 pt refusing medical medications stating God does not want her to do so. Questioning her dx of DM and whether is true that BS have been elevated in the past month including worsening of A1C from 7% to 7.9% in last few months. taoism and paranoid ideas towards and staff here. This flex o writer operator discussed with pt adding mood stabilizer, however, options between lithium and carbamazepine, given that pt had depakote in past but became more confused on it. If decide to go with lithium- keeping in mind pt also on lasix and losartan. or Carbamazepine lowers level of amiodarone and eliquis (and seroquel). seen by hospitalist today due to bilat edema started on lasix, added daily weights given HF. attempted to call OP provider but unable to leave message through [facility]. pt used to be on risperidone- unclear if d/cr due to EPS side effects. 04/06: refusing medical meds yesterday, took them today. appears to be doubting her delusional system yet remains compelled by it. encouraged to continue taking both medical meds as well as seroquel. slept 5 hours. 04/07: seems to be doing better, taking DM medications and not preoccupied with delusional material. continue current mgmt. 04/08 continue tx. consider adding carbamazepine as mood stabilizer, continue seroquel 04/09 continue tx. carbamazepine 200mg po BID added. Reason for continued inpatient stay Substantial Risk for: inability to function Time Spent With Patient Time: Total time managing care of this patient today ____ minutes.
[2025-04-09] MEDS: Nystatin Powder 15 GM BOTTLE 1 APPL TOPICAL (11:19)
[2025-04-09] MEDS: carBAMazepine 200 MG TABLET PO ×2 (11:19→20:28)
[2025-04-09 11:24] LABS: Glucose, Whole Blood 150 mg/dL (60-115)
[2025-04-09 16:20] LABS: Glucose, Whole Blood 166 mg/dL (60-115)
[2025-04-09] MEDS: Rivaroxaban 20 MG TABLET PO (17:00)
[2025-04-09 20:00] VITALS: BP 149/69; PULSE 68; RESP 18; TEMP 36.3; O2SAT 96
[2025-04-09 20:10] LABS: Glucose, Whole Blood 155 mg/dL (60-115)
[2025-04-09] MEDS: traZODone HCL 100 MG TABLET PO (20:30)
[2025-04-09] MEDS: Artificial Tears 15 ML DROPS 1 DROP EYE-BOTH (20:32)
[2025-04-10] MEDS: Acetaminophen 325 MG TABLET 975 MG PO (03:11)
[2025-04-10] MEDS: Levothyroxine Sodium 150 MCG TABLET PO (05:38)
[2025-04-10 06:41] LABS: Glucose, Whole Blood 157 mg/dL (60-115)
[2025-04-10 08:00] VITALS: BP 103/57; PULSE 60; RESP 16; TEMP 36.6; O2SAT 98
[2025-04-10] MEDS: Amiodarone HCL 200 MG TABLET PO (08:21)
[2025-04-10] MEDS: glipiZIDE 5 MG TABLET PO (08:22)
[2025-04-10] MEDS: Cholecalciferol (Vitamin D3) 25 MCG TABLET PO (08:22)
[2025-04-10] MEDS: QUEtiapine Fumarate 200 MG TABLET PO ×2 (08:22→21:11)
[2025-04-10] MEDS: carBAMazepine 200 MG TABLET PO ×2 (08:23→21:11)
[2025-04-10] MEDS: QUEtiapine Fumarate 100 MG TABLET PO (08:23)
[2025-04-10] MEDS: Insulin Lispro 100 UNIT/ML 3 ML VIAL SUBCUT ×4 (08:24→21:12)
[2025-04-10] MEDS: Nystatin Powder 15 GM BOTTLE 1 APPL TOPICAL ×2 (08:26→21:09)
[2025-04-10 11:57] LABS: Glucose, Whole Blood 158 mg/dL (60-115)
[2025-04-10 16:40] LABS: Glucose, Whole Blood 188 mg/dL (60-115)
[2025-04-10] MEDS: Rivaroxaban 20 MG TABLET PO (16:46)
[2025-04-10 19:41] LABS: Glucose, Whole Blood 152 mg/dL (60-115)
[2025-04-10 20:00] VITALS: BP 153/72; PULSE 82; RESP 18; TEMP 36.2; O2SAT 96
--- NOTE | 2025-04-10 20:56 | P.PNPSI_ITS ---
Subjective Subjective Date of Service: 04/10/25 Reason For Visit: chau Subjective Notes: Conditional Voluntary Interim History: Pt slept through the night. She reports some sedation mid day and in the morning- will lower dose of seroquel to 200mg po daily instead of 300mg po daily. continue seroquel 200mg po qhs. Family meeting to discuss progress with her daughter who is HCP. Pt with slightly more insight into psychiatric symptoms, accepting medications and need to take them. She denies SI/HI. Less labile. discussed risks versus benefits of medications and combination of mood stabilizer with antipsychotic as tx for chau. Review of Systems Review of Systems Denies any shortness of breath, chest pain, dizziness, lightheadedness, abdominal pain or discomfort, nausea vomiting or diarrhea Yes all other systems are reviewed and are negative Constitutional: Reports as per HPI and Reports no additional constitutional complaints Eyes: Reports as per HPI and Denies no additional eye complaints Denies system reviewed and no additional complaints, except as documented and Reports as per HPI Cardiovascular: Reports as per HPI, Reports no additional cardiovascular complaints, Denies acrocyanosis, Denies cool extremities, Denies chest pain, Denies leg edema, Denies lightheadedness, Denies palpitations and Denies dyspnea Respiratory: Reports as per HPI, Denies no additional respiratory complaints and Denies dyspnea Gastrointestinal: Reports as per HPI and Denies no additional gastrointestinal complaints Musculoskeletal: Reports no additional musculoskeletal complaints and Reports as per HPI Skin/Breast: Reports system reviewed and no additional complaints, except as docu Reports system reviewed and no additional complaints, except as documented and Reports as per HPI Psychiatric: Reports no additional psychiatric complaints and Reports as per HPI Endocrine: Reports no additional endocrine complaints, Reports as per HPI and Denies palpitations Hematologic/Lymphatic: Reports no additional hematologic/lymphatic complaints and Reports as per HPI Allergic/Immunologic: Reports no additional allergic/immunologic complaints and Reports as per HPI Mental Status Exam Mental Status Exam Narrative: Appearance: wearing own clothes, fair hygiene, in NAD Behavior: friendly Psychomotor: no agitation or retardation noted Speech: clear, normal rate/rhythm/volume, spontaneous TP: linear TC: no delusions or paranoia expressed Mood: not assessed Affect: constricted SI: none expressed HI: none expressed VH/AH: none expressed Insight/judgment: impaired due to psychiatric illness Memory/cog: alert, oriented x 3. Diagnostics Vital Signs (24Hr): Vital Signs - 24 hr 04/10/25 08:00 04/10/25 20:00 Temperature 97.9 F 97.2 F Pulse Rate 60 82 Respiratory Rate 16 18 Blood Pressure 103/57 L 153/72 H Pulse Oximetry 98 96 Oxygen Delivery Method Room Air Room Air BMI result Body Mass Index 42.5 Labs 03/23/25 08:01 03/27/25 08:00 Labs: Laboratory Results - last 48 hr 04/09/25 04/09/25 04/09/25 06:07 11:18 16:16 POC Glucose 179 H 150 H 166 H 04/09/25 04/10/25 04/10/25 20:01 06:03 11:51 POC Glucose 155 H 157 H 158 H 04/10/25 04/10/25 16:35 19:36 POC Glucose 188 H 152 H Medications Medications Current Medications Acetaminophen (Acetaminophen 325 Mg Tablet) 975 mg PO DAILY PRN PRN Reason: Pain Last Admin: 04/10/25 03:11 Dose: 975 mg Acetaminophen (Acetaminophen 325 Mg Tablet) 650 mg PO Q6H PRN PRN Reason: Headache/Pain, Scale 1-10 Last Admin: 04/06/25 04:22 Dose: 650 mg Al Hydroxide/Mg Hydroxide (Magnesium Hydrox/Alum Hydrox 30 Ml Oral.Susp) 30 ml PO Q6H PRN PRN Reason: Heartburn/Nausea Amiodarone HCl (Amiodarone Hcl 200 Mg Tablet) 200 mg PO DAILY SELMA Last Admin: 04/10/25 08:21 Dose: 200 mg Artificial Tears (Artificial Tears 15 Ml Drops) 1 drop EYE-BOTH TID PRN PRN Reason: Dry Eyes Last Admin: 04/09/25 20:32 Dose: 1 drop Carbamazepine (Carbamazepine 200 Mg Tablet) 200 mg PO BID SELMA Last Admin: 04/10/25 08:23 Dose: 200 mg Dextrose (Dextrose 50 % 25 Gm/50 Ml Syringe) 25 gm IVPUSH Q15M PRN; Protocol PRN Reason: per Hypoglycemia Standing Ord. Furosemide (Furosemide 40 Mg Tablet) 40 mg PO DAILY SELMA; Protocol Last Admin: 04/10/25 11:07 Dose: Not Given Glipizide (Glipizide 5 Mg Tablet) 5 mg PO DAILY SELMA Last Admin: 04/10/25 08:22 Dose: 5 mg Glucose (Glucose Gel 15 Gm Gel..Gram.) 15 gm PO Q15M PRN; Protocol PRN Reason: per Hypoglycemia Standing Ord. Insulin Human Lispro (Insulin Lispro 100 Unit/Ml 3 Ml Vial) 0 unit SUBCUT QIDACHS [facility]; Protocol Last Admin: 04/10/25 16:46 Dose: 2 unit Levothyroxine Sodium (Levothyroxine Sodium 150 Mcg Tablet) 150 mcg PO DAILY@0600 [facility] Last Admin: 04/10/25 05:38 Dose: 150 mcg Magnesium Hydroxide (Milk Of Magnesia 30 Ml Oral.Susp) 30 ml PO DAILY PRN PRN Reason: Constipation Metoprolol Tartrate (Metoprolol Tartrate 25 Mg Tablet) 75 mg PO BID [facility]; Protocol Last Admin: 04/10/25 11:07 Dose: Not Given Nicotine (Nicotine 21 Mg Patch.Td24) 21 mg TRANSDERMA DAILY PRN PRN Reason: smoking cessation Nicotine Polacrilex (Nicotine Polacrilex 2 Mg Gum) 4 mg BUCCAL Q2H PRN PRN Reason: Nicotine Cravings Nystatin (Nystatin Powder 15 Gm Bottle) 1 appl TOPICAL BID [facility]; Protocol Last Admin: 04/10/25 08:26 Dose: 1 appl Olanzapine (Olanzapine 5 Mg Tablet) 5 mg PO TID PRN PRN Reason: agitation Last Admin: 04/06/25 01:46 Dose: 5 mg Quetiapine Fumarate (Quetiapine Fumarate 200 Mg Tablet) 200 mg PO BID [facility] Last Admin: 04/10/25 08:22 Dose: 200 mg Rivaroxaban (Rivaroxaban 20 Mg Tablet) 20 mg PO DAILY@1700 [facility] Last Admin: 04/10/25 16:46 Dose: 20 mg Sacubitril/Valsartan (Sacubitril/Valsartan 1 Tab Tablet) 1 tab PO BID [facility]; Protocol Last Admin: 04/10/25 11:07 Dose: Not Given Spironolactone (Spironolactone 25 Mg Tablet) 25 mg PO DAILY [facility]; Protocol Last Admin: 04/10/25 11:07 Dose: Not Given Trazodone HCl (Trazodone Hcl 100 Mg Tablet) 100 mg PO BEDTIME [facility] Last Admin: 04/09/25 20:30 Dose: 100 mg Vitamin D (Cholecalciferol (Vitamin D3) 25 Mcg Tablet) 25 mcg PO DAILY [facility] Last Admin: 06/11/25 08:22 Dose: 25 mcg Allergies Allergies Allergy/AdvReac Type Severity Reaction Status Date / Time divalproex sodium Allergy Mild diarrhea, Verified 03/23/25 07:44 [From Depakote] brain fog gluten Allergy Mild Unknown Verified 03/23/25 07:44 hazelnut Allergy Unknown Unknown Verified 01/15/25 10:01 shellfish derived Allergy Unknown Unknown Verified 01/15/25 10:01 sesame seeds Allergy Unknown Unknown Uncoded 01/15/25 10:01 Assessment & Plan Assessment & Plan (1) Bipolar 1 disorder: Status: Acute Code(s): F31.9 - Bipolar disorder, unspecified Plan 69-year-old female with past medical history of bipolar, PTSD, AFib, hypothyroidism, hypertension, LBBB, presented to [facility] via ambulance on 03/23/2025 for chau, paranoia, and auditory hallucinations. She notes that she had a verbal altercation immediately before presenting to the ED. She states that she received the call from her psychiatrist who inform her that she was returning a call regarding a voicemail she received from their home; the voicemail noted that the patient has not been sleeping and needed more medications. The patient inform her psychiatrist that she was unaware of the call which her may have made. She states that her is in charge of administering her medications and was giving her more of her medications than prescribed, and made her groggy. Therefore, she came the trazodone, without knowledge, and was not on the medication for 3 days; however, she slept adequately. Also, was upset after she recently told him she decided not to go to the appointment with the director of the home regarding her plan for cremation and that she change her MOLST from DNR to full code. She notes that her is controlling and does not want her to make decisions about her life. Therefore, she did some research on the Internet and confirmed that her has been a narcissist for the 30 years they been together. As the verbal altercation regarding her 's voicemail to her psychiatrist, which she was unaware of, escalated, the patient has called and asked her daughter to call 911, and she did. Patient was brought to the emergency department. She notes that she sleeps an average of 4-6 hours nightly. Sometimes, she would be awake, and not fall asleep at all, for 1-2 days; however, she does not recall the last time that happened. Per CARE team report, patient's reported that the patient had not slept for 3-4 days and stopped taking her psychotropic medications for about 3 weeks; there is a significant decline in her functioning. Patient denies SI, HI, AVH. She denies drugs or alcohol use. U tox was negative. BAL is 13. Formulation/Clinical reasoning: Bipolar 1 disorder with manic episode: Likely due to not taking her medications for about 3 weeks, leading to significant decline, including chau, paranoia, and functional impairment. Will continue current treatment regimen for now and will make adjustment as needed. She currently has UTI which may also contribute to her mental declines; she is currently treated with cefuroxime which is resistant to the current causative bacteria; will discontinue so fluoxetine and start nitrofurantoin for UTI. Hospital course: 03/28: Patient notes that she is in a good mood today. She had been taking her medications as prescribed. Her daughter is visiting and present. She notes that she slept last night. She denies SI/HI/AH/VH. Her daughter told oncology social worker that she was very concerned about the patient who went to the bank in her nightgown and transferred 4000 dollars from her 's account into hers. She was subsequently brought home by the police from her friend's home. Continue current treatment regimen. 03/29 remains plesant but paranoid; will continue to see if restarting home regimen will be enough to bring her back to baseline; if not, will either increase doses or augment -may do better on Jamie 03/30: Continue current regimen and plans. 03/31: Continue current regimen and plans. 04/01: some reduction in paranoia; pt feeling differently about her , talking w/ him on the phone; she asked senior technical writer change his status, saying she now wants him to come and visit her and wants to receive phone calls from from him. -transfer to [facility]; pt agrees 04/02 continue tx. will check EKG given qtc prolonging meds and hx of qtc prolongation. 04/03 continue tx. QTc 503 (506 on admit) cardiology consult for guidance in proceeding with her care. 04/04 decrease trazodone to 100mg po qhs. may add ativan at night time for sleep as needed. Will contact OP provider for collateral information. Pt used to be on risperidone, unclear why it was d/cr. may need mood stabilizer, did become more confused with depakote. renal function decreased in 77, but may consider lithium or carbamazepine. 04/05 pt refusing medical medications stating God does not want her to do so. Questioning her dx of DM and whether is true that BS have been elevated in the past month including worsening of A1C from 7% to 7.9% in last few months. taoism and paranoid ideas towards and staff here. This senior technical writer discussed with pt adding mood stabilizer, however, options between lithium and carbamazepine, given that pt had depakote in past but became more confused on it. If decide to go with lithium- keeping in mind pt also on lasix and losartan. or Carbamazepine lowers level of amiodarone and eliquis (and seroquel). seen by hospitalist today due to bilat edema started on lasix, added daily weights given HF. attempted to call OP provider but unable to leave message through [facility]. pt used to be on risperidone- unclear if d/cr due to EPS side effects. 04/06: refusing medical meds yesterday, took them today. appears to be doubting her delusional system yet remains compelled by it. encouraged to continue taking both medical meds as well as seroquel. slept 5 hours. 04/07: seems to be doing better, taking DM medications and not preoccupied with delusional material. continue current mgmt. 04/08 continue tx. consider adding carbamazepine as mood stabilizer, continue seroquel 04/09 carbamazepine 200mg po BID 04/10 lower seroquel in morning to 200mg po daily. Plan Admit to M[facility]. CV 15 minutes check. Diagnostics as needed. Collateral contact. Continue remainder of regime. Encouraged full milieu. Discharge planning. Reason for continued inpatient stay Substantial Risk for: inability to function Time Spent With Patient Time: Total time managing care of this patient today ____ minutes.
[2025-04-10 20:58] VITALS: BP 135/63
[2025-04-10 21:09] VITALS: BP 135/63; PULSE 82
[2025-04-10] MEDS: Sacubitril/Valsartan 24/26 1 TAB TABLET PO (21:09)
[2025-04-10] MEDS: Metoprolol Tartrate 25 MG TABLET 75 MG PO (21:09)
[2025-04-10] MEDS: traZODone HCL 100 MG TABLET PO (21:11)
[2025-04-11] MEDS: Acetaminophen 325 MG TABLET 975 MG PO (02:07)
[2025-04-11] MEDS: Artificial Tears 15 ML DROPS 1 DROP EYE-BOTH ×2 (02:10→06:29)
[2025-04-11] MEDS: Levothyroxine Sodium 150 MCG TABLET PO (06:27)
[2025-04-11] MEDS: Insulin Lispro 100 UNIT/ML 3 ML VIAL SUBCUT ×4 (06:42→21:19)
[2025-04-11 06:43] LABS: Glucose, Whole Blood 190 mg/dL (60-115)
--- NOTE | 2025-04-11 07:46 | P.PNPSI_ITS ---
Subjective Subjective Date of Service: 04/11/25 Reason For Visit: chau Subjective Notes: Conditional Voluntary Interim History: Pt slept through the night. She reports waking up very somnolent and needing to sleep most of the day. She missed lunch. She presents with less paranoid, less latter-day delusions. No SI/HI. We discussed adjust medications to make sure she is not overly sedated. Review of Systems Review of Systems Denies any shortness of breath, chest pain, dizziness, lightheadedness, abdominal pain or discomfort, nausea vomiting or diarrhea Yes all other systems are reviewed and are negative Constitutional: Reports as per HPI and Reports no additional constitutional complaints Eyes: Reports as per HPI and Denies no additional eye complaints Denies system reviewed and no additional complaints, except as documented and Reports as per HPI Cardiovascular: Reports as per HPI, Reports no additional cardiovascular complaints, Denies acrocyanosis, Denies cool extremities, Denies chest pain, Denies leg edema, Denies lightheadedness, Denies palpitations and Denies dyspnea Respiratory: Reports as per HPI, Denies no additional respiratory complaints and Denies dyspnea Gastrointestinal: Reports as per HPI and Denies no additional gastrointestinal complaints Musculoskeletal: Reports no additional musculoskeletal complaints and Reports as per HPI Skin/Breast: Reports system reviewed and no additional complaints, except as docu Reports system reviewed and no additional complaints, except as documented and Reports as per HPI Psychiatric: Reports no additional psychiatric complaints and Reports as per HPI Endocrine: Reports no additional endocrine complaints, Reports as per HPI and Denies palpitations Hematologic/Lymphatic: Reports no additional hematologic/lymphatic complaints and Reports as per HPI Allergic/Immunologic: Reports no additional allergic/immunologic complaints and Reports as per HPI Mental Status Exam Mental Status Exam Narrative: Appearance: wearing own clothes, fair hygiene, in NAD Behavior: friendly Psychomotor: no agitation or retardation noted Speech: clear, normal rate/rhythm/volume, spontaneous TP: linear TC: no delusions or paranoia expressed Mood: not assessed Affect: constricted SI: none expressed HI: none expressed VH/AH: none expressed Insight/judgment: impaired due to psychiatric illness Memory/cog: alert, oriented x 3. Diagnostics Vital Signs (24Hr): Vital Signs - 24 hr 04/10/25 08:00 04/10/25 20:00 04/10/25 20:58 Temperature 97.9 F 97.2 F Pulse Rate 60 82 Respiratory Rate 16 18 Blood Pressure 103/57 L 153/72 H 135/63 Pulse Oximetry 98 96 Oxygen Delivery Method Room Air Room Air 04/10/25 21:09 04/10/25 21:09 Temperature Pulse Rate 82 Respiratory Rate Blood Pressure 135/63 135/63 Pulse Oximetry Oxygen Delivery Method BMI result Body Mass Index 42.5 Labs 03/23/25 08:01 03/27/25 08:00 Labs: Laboratory Results - last 48 hr 04/09/25 04/09/25 04/09/25 11:18 16:16 20:01 POC Glucose 150 H 166 H 155 H 04/10/25 04/10/25 04/10/25 06:03 11:51 16:35 POC Glucose 157 H 158 H 188 H 04/10/25 04/11/25 19:36 06:37 POC Glucose 152 H 190 H Medications Medications Current Medications Acetaminophen (Acetaminophen 325 Mg Tablet) 975 mg PO DAILY PRN PRN Reason: Pain Last Admin: 04/11/25 02:07 Dose: 975 mg Acetaminophen (Acetaminophen 325 Mg Tablet) 650 mg PO Q6H PRN PRN Reason: Headache/Pain, Scale 1-10 Last Admin: 04/06/25 04:22 Dose: 650 mg Al Hydroxide/Mg Hydroxide (Magnesium Hydrox/Alum Hydrox 30 Ml Oral.Susp) 30 ml PO Q6H PRN PRN Reason: Heartburn/Nausea Amiodarone HCl (Amiodarone Hcl 200 Mg Tablet) 200 mg PO DAILY [facility] Last Admin: 04/10/25 08:21 Dose: 200 mg Artificial Tears (Artificial Tears 15 Ml Drops) 1 drop EYE-BOTH TID PRN PRN Reason: Dry Eyes Last Admin: 04/11/25 06:29 Dose: 1 drop Carbamazepine (Carbamazepine 200 Mg Tablet) 200 mg PO BID SELMA Last Admin: 04/10/25 21:11 Dose: 200 mg Dextrose (Dextrose 50 % 25 Gm/50 Ml Syringe) 25 gm IVPUSH Q15M PRN; Protocol PRN Reason: per Hypoglycemia Standing Ord. Furosemide (Furosemide 40 Mg Tablet) 40 mg PO DAILY [facility]; Protocol Last Admin: 04/10/25 11:07 Dose: Not Given Glipizide (Glipizide 5 Mg Tablet) 5 mg PO DAILY [facility] Last Admin: 04/10/25 08:22 Dose: 5 mg Glucose (Glucose Gel 15 Gm Gel..Gram.) 15 gm PO Q15M PRN; Protocol PRN Reason: per Hypoglycemia Standing Ord. Insulin Human Lispro (Insulin Lispro 100 Unit/Ml 3 Ml Vial) 0 unit SUBCUT QIDACHS [facility]; Protocol Last Admin: 04/11/25 06:42 Dose: 2 unit Levothyroxine Sodium (Levothyroxine Sodium 150 Mcg Tablet) 150 mcg PO DAILY@0600 [facility] Last Admin: 04/11/25 06:27 Dose: 150 mcg Magnesium Hydroxide (Milk Of Magnesia 30 Ml Oral.Susp) 30 ml PO DAILY PRN PRN Reason: Constipation Metoprolol Tartrate (Metoprolol Tartrate 25 Mg Tablet) 75 mg PO BID [facility]; Protocol Last Admin: 04/10/25 21:09 Dose: 75 mg Nicotine (Nicotine 21 Mg Patch.Td24) 21 mg TRANSDERMA DAILY PRN PRN Reason: smoking cessation Nicotine Polacrilex (Nicotine Polacrilex 2 Mg Gum) 4 mg BUCCAL Q2H PRN PRN Reason: Nicotine Cravings Nystatin (Nystatin Powder 15 Gm Bottle) 1 appl TOPICAL BID [facility]; Protocol Last Admin: 04/10/25 21:09 Dose: 1 appl Olanzapine (Olanzapine 5 Mg Tablet) 5 mg PO TID PRN PRN Reason: agitation Last Admin: 04/06/25 01:46 Dose: 5 mg Quetiapine Fumarate (Quetiapine Fumarate 200 Mg Tablet) 200 mg PO BID [facility] Last Admin: 04/10/25 21:11 Dose: 200 mg Rivaroxaban (Rivaroxaban 20 Mg Tablet) 20 mg PO DAILY@1700 [facility] Last Admin: 04/10/25 16:46 Dose: 20 mg Sacubitril/Valsartan (Sacubitril/Valsartan 1 Tab Tablet) 1 tab PO BID [facility]; Protocol Last Admin: 04/10/25 21:09 Dose: 1 tab Spironolactone (Spironolactone 25 Mg Tablet) 25 mg PO DAILY [facility]; Protocol Last Admin: 04/10/25 11:07 Dose: Not Given Trazodone HCl (Trazodone Hcl 100 Mg Tablet) 100 mg PO BEDTIME [facility] Last Admin: 04/10/25 21:11 Dose: 100 mg Vitamin D (Cholecalciferol (Vitamin D3) 25 Mcg Tablet) 25 mcg PO DAILY [facility] Last Admin: 04/10/25 08:22 Dose: 25 mcg Allergies Allergies Allergy/AdvReac Type Severity Reaction Status Date / Time divalproex sodium Allergy Mild diarrhea, Verified 03/23/25 07:44 [From Depakote] brain fog gluten Allergy Mild Unknown Verified 03/23/25 07:44 hazelnut Allergy Unknown Unknown Verified 01/15/25 10:01 shellfish derived Allergy Unknown Unknown Verified 01/15/25 10:01 sesame seeds Allergy Unknown Unknown Uncoded 01/15/25 10:01 Assessment & Plan Assessment & Plan (1) Bipolar 1 disorder: Status: Acute Code(s): F31.9 - Bipolar disorder, unspecified Plan 69-year-old female with past medical history of bipolar, PTSD, AFib, hypothyroidism, hypertension, LBBB, [place] [facility] [place] [facility] [place] 03/23/[place]25 for chau, paranoia, and auditory hallucinations. She notes that she had a verbal altercation immediately before presenting to the ED. She states that she received the call from her psychiatrist who inform her that she was returning a call regarding a voicemail she received from their home; the voicemail noted that the patient has not been sleeping and needed more medications. The patient inform her psychiatrist that she was unaware of the call which her may have made. She states that her is in charge of administering her medications and was giving her more of her medications than prescribed, and made her groggy. Therefore, she came the trazodone, without knowledge, and was not on the medication for 3 days; however, she slept adequately. Also, was upset after she recently told him she decided not to go to the appointment with the director of the home regarding her plan for cremation and that she change her MOLST from DNR to full code. She notes that her is controlling and does not want her to make decisions about her life. Therefore, she did some research on the Internet and confirmed that her has been a narcissist for the 30 years they been together. As the verbal altercation regarding her 's voicemail to her psychiatrist, which she was unaware of, escalated, the patient has called and asked her daughter to call 911, and she did. Patient was brought to the emergency department. She notes that she sleeps an average of 4-6 hours nightly. Sometimes, she would be awake, and not fall asleep at all, for 1-2 days; however, she does not recall the last time that happened. Per CARE team report, patient's reported that the patient had not slept for 3-4 days and stopped taking her psychotropic medications for about 3 weeks; there is a significant decline in her functioning. Patient denies SI, HI, AVH. She denies drugs or alcohol use. U tox was negative. BAL is 13. Formulation/Clinical reasoning: Bipolar 1 disorder with manic episode: Likely due to not taking her medications for about 3 weeks, leading to significant decline, including chau, paranoia, and functional impairment. Will continue current treatment regimen for now and will make adjustment as needed. She currently has UTI which may also contribute to her mental declines; she is currently treated with cefuroxime which is resistant to the current causative bacteria; will discontinue so fluoxetine and start nitrofurantoin for UTI. Hospital course: 03/28: Patient notes that she is in a good mood today. She had been taking her medications as prescribed. Her daughter is visiting and present. She notes that she slept last night. She denies SI/HI/AH/VH. Her daughter told rn social services that she was very concerned about the patient who went to the bank in her nightgown and transferred 4000 dollars from her 's account into hers. She was subsequently brought home by the police from her friend's home. Continue current treatment regimen. 03/29 remains plesant but paranoid; will continue to see if restarting home regimen will be enough to bring her back to baseline; if not, will either increase doses or augment -may do better on Jamie 03/30: Continue current regimen and plans. 03/31: Continue current regimen and plans. 04/01: some reduction in paranoia; pt feeling differently about her , talking w/ him on the phone; she asked policy writer change his status, saying she now wants him to come and visit her and wants to receive phone calls from from him. -transfer to [facility]; pt agrees 04/02 continue tx. will check EKG given qtc prolonging meds and hx of qtc prolongation. 04/03 continue tx. QTc 503 (506 on admit) cardiology consult for guidance in proceeding with her care. 04/04 decrease trazodone to 100mg po qhs. may add ativan at night time for sleep as needed. Will contact OP provider for collateral information. Pt used to be on risperidone, unclear why it was d/cr. may need mood stabilizer, did become more confused with depakote. renal function decreased in 77, but may consider lithium or carbamazepine. 04/05 pt refusing medical medications stating God does not want her to do so. Questioning her dx of DM and whether is true that BS have been elevated in the past month including worsening of A1C from 7% to 7.9% in last few months. latter-day and paranoid ideas towards and staff here. This policy writer discussed with pt adding mood stabilizer, however, options between lithium and carbamazepine, given that pt had depakote in past but became more confused on it. If decide to go with lithium- keeping in mind pt also on lasix and losartan. or Carbamazepine lowers level of amiodarone and eliquis (and seroquel). seen by hospitalist today due to bilat edema started on lasix, added daily weights given HF. attempted to call OP provider but unable to leave message through [facility]. pt used to be on risperidone- unclear if d/cr due to EPS side effects. 04/06: refusing medical meds yesterday, took them today. appears to be doubting her delusional system yet remains compelled by it. encouraged to continue taking both medical meds as well as seroquel. slept 5 hours. 04/07: seems to be doing better, taking DM medications and not preoccupied with delusional material. continue current mgmt. 04/08 continue tx. consider adding carbamazepine as mood stabilizer, continue seroquel 04/09 carbamazepine 200mg po BID 04/10 lower seroquel in morning to 200mg po daily. 04/11 continue tx. Plan Admit to [facility]. CV 15 minutes check. Diagnostics as needed. Collateral contact. Continue remainder of regime. Encouraged full milieu. Discharge planning. Reason for continued inpatient stay Substantial Risk for: inability to function Time Spent With Patient Time: Total time managing care of this patient today ____ minutes.
[2025-04-11 08:00] VITALS: BP 112/53; PULSE 61; RESP 16; TEMP 36.2; O2SAT 95
[2025-04-11] MEDS: glipiZIDE 5 MG TABLET PO (09:41)
[2025-04-11] MEDS: Cholecalciferol (Vitamin D3) 25 MCG TABLET PO (09:42)
[2025-04-11] MEDS: QUEtiapine Fumarate 200 MG TABLET PO ×2 (09:42→21:08)
[2025-04-11] MEDS: carBAMazepine 200 MG TABLET PO ×2 (09:43→21:08)
[2025-04-11 09:45] VITALS: BP 112/53
[2025-04-11] MEDS: Nystatin Powder 15 GM BOTTLE 1 APPL TOPICAL (09:46)
[2025-04-11 11:23] LABS: Glucose, Whole Blood 186 mg/dL (60-115)
--- NOTE | 2025-04-11 11:37 | PC.NURSE ---
Orthostatic VS obtained: supine: BP 116/55, HR 65, O2 sat 97% sitting: BP 125/58 , HR 70 , O2 sat 96% standing: BP 138/65, HR 78, O2 sat 97% Provider made aware of findings.
[2025-04-11 11:45] VITALS: BP 138/65; PULSE 78
[2025-04-11] MEDS: Metoprolol Tartrate 25 MG TABLET 75 MG PO ×2 (11:45→21:08)
[2025-04-11] MEDS: Spironolactone 25 MG TABLET PO (11:46)
[2025-04-11] MEDS: Sacubitril/Valsartan 24/26 1 TAB TABLET PO ×2 (11:46→21:08)
[2025-04-11] MEDS: Amiodarone HCL 200 MG TABLET PO (11:47)
[2025-04-11 14:11] LABS: Alanine Aminotransferase 19 U/L (0-31); Albumin Level 3.5 g/dL (3.5-5.0); Alkaline Phosphatase 69 U/L (39-117); Anion Gap 16 (12-20); Aspartate Amino Transferase 29 U/L (5-31); Bilirubin Total 0.2 mg/dL (0.0-1.0); Blood Urea Nitrogen 16 mg/dL (9-16); Calcium 8.7 mg/dL (8.4-10.2); Carbon Dioxide 20 mmol/L (22-29); Chloride 106 mmol/L (96-108); Creatinine Clr Calc Pharmacy 76.8; Estimated Glomerular Filt Rate > 60; Glucose Random 183 mg/dL (60-115); Potassium 4.5 mmol/L (3.3-5.1); Sodium 137 mmol/L (135-145); Total Protein 6.8 g/dL (6.5-8.0)
[2025-04-11 16:27] LABS: Glucose, Whole Blood 156 mg/dL (60-115)
[2025-04-11] MEDS: Rivaroxaban 20 MG TABLET PO (16:33)
[2025-04-11 20:00] VITALS: BP 120/63; PULSE 64; RESP 18; TEMP 36.4; O2SAT 95
[2025-04-11 21:03] LABS: Glucose, Whole Blood 165 mg/dL (60-115)
[2025-04-11] MEDS: traZODone HCL 100 MG TABLET PO (21:08)
[2025-04-12] MEDS: Nystatin Powder 15 GM BOTTLE 1 APPL TOPICAL ×2 (00:32→21:51)
[2025-04-12] MEDS: Levothyroxine Sodium 150 MCG TABLET PO (05:44)
[2025-04-12 06:41] LABS: Glucose, Whole Blood 169 mg/dL (60-115)
[2025-04-12 08:00] VITALS: BP 126/64; PULSE 61; RESP 18; TEMP 36.1; O2SAT 94; BMI 43.7
[2025-04-12 08:24] LABS: Glucose, Whole Blood 180 mg/dL (60-115)
[2025-04-12] MEDS: Artificial Tears 15 ML DROPS 1 DROP EYE-BOTH (08:40)
[2025-04-12] MEDS: Insulin Lispro 100 UNIT/ML 3 ML VIAL SUBCUT ×3 (08:57→21:05)
[2025-04-12] MEDS: Metoprolol Tartrate 25 MG TABLET 75 MG PO ×2 (08:58→21:05)
[2025-04-12] MEDS: QUEtiapine Fumarate 200 MG TABLET PO ×2 (08:59→21:06)
[2025-04-12] MEDS: Spironolactone 25 MG TABLET PO (08:59)
[2025-04-12] MEDS: Sacubitril/Valsartan 24/26 1 TAB TABLET PO ×2 (08:59→21:06)
[2025-04-12] MEDS: Amiodarone HCL 200 MG TABLET PO (09:00)
[2025-04-12] MEDS: glipiZIDE 5 MG TABLET PO (09:00)
[2025-04-12] MEDS: Cholecalciferol (Vitamin D3) 25 MCG TABLET PO (09:00)
[2025-04-12] MEDS: carBAMazepine 200 MG TABLET PO ×2 (09:02→21:50)
--- NOTE | 2025-04-12 09:23 | HO.PSYCHPN ---
Subjective Subjective Date of Service: 04/12/25 Reason For Visit: chau Subjective Notes: Conditional Voluntary Interim History: Pt slept through the night. She continues to report waking up very somnolent and needing to sleep most of the day. Although she was more visible today in the morning. She presents with less paranoid, less mu-ism delusions. No SI/HI. We discussed adjust medications to make sure she is not overly sedated. Review of Systems Review of Systems Denies any shortness of breath, chest pain, dizziness, lightheadedness, abdominal pain or discomfort, nausea vomiting or diarrhea Yes all other systems are reviewed and are negative Constitutional: Reports as per HPI and Reports no additional constitutional complaints Eyes: Reports as per HPI and Denies no additional eye complaints Denies system reviewed and no additional complaints, except as documented and Reports as per HPI Cardiovascular: Reports as per HPI, Reports no additional cardiovascular complaints, Denies acrocyanosis, Denies cool extremities, Denies chest pain, Denies leg edema, Denies lightheadedness, Denies palpitations and Denies dyspnea Respiratory: Reports as per HPI, Denies no additional respiratory complaints and Denies dyspnea Gastrointestinal: Reports as per HPI and Denies no additional gastrointestinal complaints Musculoskeletal: Reports no additional musculoskeletal complaints and Reports as per HPI Skin/Breast: Reports system reviewed and no additional complaints, except as docu Reports system reviewed and no additional complaints, except as documented and Reports as per HPI Psychiatric: Reports no additional psychiatric complaints and Reports as per HPI Endocrine: Reports no additional endocrine complaints, Reports as per HPI and Denies palpitations Hematologic/Lymphatic: Reports no additional hematologic/lymphatic complaints and Reports as per HPI Allergic/Immunologic: Reports no additional allergic/immunologic complaints and Reports as per HPI Mental Status Exam Mental Status Exam Narrative: Appearance: wearing own clothes, fair hygiene, in NAD Behavior: friendly Psychomotor: no agitation or retardation noted Speech: clear, normal rate/rhythm/volume, spontaneous TP: linear TC: no delusions or paranoia expressed Mood: not assessed Affect: constricted SI: none expressed HI: none expressed VH/AH: none expressed Insight/judgment: impaired due to psychiatric illness Memory/cog: alert, oriented x 3. Diagnostics Vital Signs (24Hr): Vital Signs - 24 hr 04/11/25 09:45 04/11/25 11:45 04/11/25 20:00 Temperature 97.5 F Pulse Rate 78 64 Respiratory Rate 18 Blood Pressure 112/53 L 138/65 120/63 Pulse Oximetry 95 Oxygen Delivery Method Room Air 04/12/25 08:00 Temperature 97 F Pulse Rate 61 Respiratory Rate 18 Blood Pressure 126/64 Pulse Oximetry 94 Oxygen Delivery Method Room Air BMI result Body Mass Index 43.7 Labs 03/23/25 08:01 04/11/25 13:51 Labs: Laboratory Results - last 48 hr 04/10/25 04/10/25 04/10/25 11:51 16:35 19:36 Sodium Potassium Chloride Carbon Dioxide Anion Gap BUN Creatinine Estim Creat Clear Calc Estimated GFR POC Glucose 158 H 188 H 152 H Random Glucose Calcium Total Bilirubin AST ALT Alkaline Phosphatase Total Protein Albumin 04/11/25 04/11/25 04/11/25 06:37 11:18 13:51 Sodium 137 Potassium 4.5 Chloride 106 Carbon Dioxide 20 L Anion Gap 16 BUN 16 Creatinine 0.84 Estim Creat Clear Calc 76.8 Estimated GFR > 60 POC Glucose 190 H 186 H Random Glucose 183 H Calcium 8.7 D Total Bilirubin 0.2 AST 29 ALT 19 Alkaline Phosphatase 69 Total Protein 6.8 Albumin 3.5 04/11/25 04/11/25 04/12/25 16:24 20:58 06:28 Sodium Potassium Chloride Carbon Dioxide Anion Gap BUN Creatinine Estim Creat Clear Calc Estimated GFR POC Glucose 156 H 165 H 169 H Random Glucose Calcium Total Bilirubin AST ALT Alkaline Phosphatase Total Protein Albumin 04/12/25 08:20 Sodium Potassium Chloride Carbon Dioxide Anion Gap BUN Creatinine Estim Creat Clear Calc Estimated GFR POC Glucose 180 H Random Glucose Calcium Total Bilirubin AST ALT Alkaline Phosphatase Total Protein Albumin Medications Medications Current Medications Acetaminophen (Acetaminophen 325 Mg Tablet) 975 mg PO DAILY PRN PRN Reason: Pain Last Admin: 04/11/25 02:07 Dose: 975 mg Acetaminophen (Acetaminophen 325 Mg Tablet) 650 mg PO Q6H PRN PRN Reason: Headache/Pain, Scale 1-10 Last Admin: 04/06/25 04:22 Dose: 650 mg Al Hydroxide/Mg Hydroxide (Magnesium Hydrox/Alum Hydrox 30 Ml Oral.Susp) 30 ml PO Q6H PRN PRN Reason: Heartburn/Nausea Amiodarone HCl (Amiodarone Hcl 200 Mg Tablet) 200 mg PO DAILY SELMA Last Admin: 04/12/25 09:00 Dose: 200 mg Artificial Tears (Artificial Tears 15 Ml Drops) 1 drop EYE-BOTH TID [facility] Last Admin: 04/12/25 00:56 Dose: Not Given Carbamazepine (Carbamazepine 200 Mg Tablet) 200 mg PO BID [facility] Last Admin: 04/12/25 09:02 Dose: 200 mg Dextrose (Dextrose 50 % 25 Gm/50 Ml Syringe) 25 gm IVPUSH Q15M PRN; Protocol PRN Reason: per Hypoglycemia Standing Ord. Furosemide (Furosemide 40 Mg Tablet) 40 mg PO DAILY [facility]; Protocol Last Admin: 04/11/25 09:45 Dose: Not Given Glipizide (Glipizide 5 Mg Tablet) 5 mg PO DAILY [facility] Last Admin: 04/12/25 09:00 Dose: 5 mg Glucose (Glucose Gel 15 Gm Gel..Gram.) 15 gm PO Q15M PRN; Protocol PRN Reason: per Hypoglycemia Standing Ord. Insulin Human Lispro (Insulin Lispro 100 Unit/Ml 3 Ml Vial) 0 unit SUBCUT QIDACHS [facility]; Protocol Last Admin: 04/12/25 08:57 Dose: 2 unit Levothyroxine Sodium (Levothyroxine Sodium 150 Mcg Tablet) 150 mcg PO DAILY@0600 [facility] Last Admin: 04/12/25 05:44 Dose: 150 mcg Magnesium Hydroxide (Milk Of Magnesia 30 Ml Oral.Susp) 30 ml PO DAILY PRN PRN Reason: Constipation Metoprolol Tartrate (Metoprolol Tartrate 25 Mg Tablet) 75 mg PO BID [facility]; Protocol Last Admin: 04/12/25 08:58 Dose: 75 mg Nicotine (Nicotine 21 Mg Patch.Td24) 21 mg TRANSDERMA DAILY PRN PRN Reason: smoking cessation Nicotine Polacrilex (Nicotine Polacrilex 2 Mg Gum) 4 mg BUCCAL Q2H PRN PRN Reason: Nicotine Cravings Nystatin (Nystatin Powder 15 Gm Bottle) 1 appl TOPICAL BID [facility]; Protocol Last Admin: 04/12/25 09:06 Dose: Not Given Olanzapine (Olanzapine 5 Mg Tablet) 5 mg PO TID PRN PRN Reason: agitation Last Admin: 04/06/25 01:46 Dose: 5 mg Quetiapine Fumarate (Quetiapine Fumarate 200 Mg Tablet) 200 mg PO BID [facility] Last Admin: 04/12/25 08:59 Dose: 200 mg Rivaroxaban (Rivaroxaban 20 Mg Tablet) 20 mg PO DAILY@1700 [facility] Last Admin: 04/11/25 16:33 Dose: 20 mg Sacubitril/Valsartan (Sacubitril/Valsartan 1 Tab Tablet) 1 tab PO BID [facility]; Protocol Last Admin: 04/12/25 08:59 Dose: 1 tab Spironolactone (Spironolactone 25 Mg Tablet) 25 mg PO DAILY [facility]; Protocol Last Admin: 04/12/25 08:59 Dose: 25 mg Trazodone HCl (Trazodone Hcl 100 Mg Tablet) 100 mg PO BEDTIME [facility]MA Last Admin: 04/11/25 21:08 Dose: 100 mg Vitamin D (Cholecalciferol (Vitamin D3) 25 Mcg Tablet) 25 mcg PO DAILY SELMA Last Admin: 04/12/25 09:00 Dose: 25 mcg Allergies Allergies Allergy/AdvReac Type Severity Reaction Status Date / Time divalproex sodium Allergy Mild diarrhea, Verified 03/23/25 07:44 [From Depakote] brain fog gluten Allergy Mild Unknown Verified 03/23/25 07:44 hazelnut Allergy Unknown Unknown Verified 01/15/25 10:01 shellfish derived Allergy Unknown Unknown Verified 01/15/25 10:01 sesame seeds Allergy Unknown Unknown Uncoded 01/15/25 10:01 Assessment & Plan Assessment & Plan (1) Bipolar 1 disorder: Status: Acute Code(s): F31.9 - Bipolar disorder, unspecified Plan 69-year-old female with past medical history of bipolar, PTSD, AFib, hypothyroidism, hypertension, LBBB, presented to [facility] via ambulance on 03/23/2025 for chau, paranoia, and auditory hallucinations. She notes that she had a verbal altercation immediately before presenting to the ED. She states that she received the call from her psychiatrist who inform her that she was returning a call regarding a voicemail she received from their home; the voicemail noted that the patient has not been sleeping and needed more medications. The patient inform her psychiatrist that she was unaware of the call which her may have made. She states that her is in charge of administering her medications and was giving her more of her medications than prescribed, and made her groggy. Therefore, she came the trazodone, without knowledge, and was not on the medication for 3 days; however, she slept adequately. Also, was upset after she recently told him she decided not to go to the appointment with the director of the home regarding her plan for cremation and that she change her MOLST from DNR to full code. She notes that her is controlling and does not want her to make decisions about her life. Therefore, she did some research on the Internet and confirmed that her has been a narcissist for the 30 years they been together. As the verbal altercation regarding her 's voicemail to her psychiatrist, which she was unaware of, escalated, the patient has called and asked her daughter to call 911, and she did. Patient was brought to the emergency department. She notes that she sleeps an average of 4-6 hours nightly. Sometimes, she would be awake, and not fall asleep at all, for 1-2 days; however, she does not recall the last time that happened. Per CARE team report, patient's reported that the patient had not slept for 3-4 days and stopped taking her psychotropic medications for about 3 weeks; there is a significant decline in her functioning. Patient denies SI, HI, AVH. She denies drugs or alcohol use. U tox was negative. BAL is 13. Formulation/Clinical reasoning: Bipolar 1 disorder with manic episode: Likely due to not taking her medications for about 3 weeks, leading to significant decline, including chau, paranoia, and functional impairment. Will continue current treatment regimen for now and will make adjustment as needed. She currently has UTI which may also contribute to her mental declines; she is currently treated with cefuroxime which is resistant to the current causative bacteria; will discontinue so fluoxetine and start nitrofurantoin for UTI. Hospital course: 03/28: Patient notes that she is in a good mood today. She had been taking her medications as prescribed. Her daughter is visiting and present. She notes that she slept last night. She denies SI/HI/AH/VH. Her daughter told social worker health services that she was very concerned about the patient who went to the bank in her nightgown and transferred 4000 dollars from her 's account into hers. She was subsequently brought home by the police from her friend's home. Continue current treatment regimen. 03/29 remains plesant but paranoid; will continue to see if restarting home regimen will be enough to bring her back to baseline; if not, will either increase doses or augment -may do better on Jamie 03/30: Continue current regimen and plans. 03/31: Continue current regimen and plans. 04/01: some reduction in paranoia; pt feeling differently about her , talking w/ him on the phone; she asked script writer change his status, saying she now wants him to come and visit her and wants to receive phone calls from from him. -transfer to [facility]; pt agrees 04/02 continue tx. will check EKG given qtc prolonging meds and hx of qtc prolongation. 04/03 continue tx. QTc 503 (506 on admit) cardiology consult for guidance in proceeding with her care. 04/04 decrease trazodone to 100mg po qhs. may add ativan at night time for sleep as needed. Will contact OP provider for collateral information. Pt used to be on risperidone, unclear why it was d/cr. may need mood stabilizer, did become more confused with depakote. renal function decreased in 77, but may consider lithium or carbamazepine. 04/05 pt refusing medical medications stating God does not want her to do so. Questioning her dx of DM and whether is true that BS have been elevated in the past month including worsening of A1C from 7% to 7.9% in last few months. mu-ism and paranoid ideas towards and staff here. This script writer discussed with pt adding mood stabilizer, however, options between lithium and carbamazepine, given that pt had depakote in past but became more confused on it. If decide to go with lithium- keeping in mind pt also on lasix and losartan. or Carbamazepine lowers level of amiodarone and eliquis (and seroquel). seen by hospitalist today due to bilat edema started on lasix, added daily weights given HF. attempted to call OP provider but unable to leave message through [facility]. pt used to be on risperidone- unclear if d/cr due to EPS side effects. 04/06: refusing medical meds yesterday, took them today. appears to be doubting her delusional system yet remains compelled by it. encouraged to continue taking both medical meds as well as seroquel. slept 5 hours. 04/07: seems to be doing better, taking DM medications and not preoccupied with delusional material. continue current mgmt. 6/9 continue tx. consider adding carbamazepine as mood stabilizer, continue seroquel 04/09 carbamazepine 200mg po BID 04/10 lower seroquel in morning to 200mg po daily. 04/11 continue tx. 04/12 will lower seroquel to 200mg po qhs. may benefit from another antipsychotic (latuda or vraylar) but does have hx of EPS with higher potency antipsychotics like risperidone. continue carbamazepine. Reason for continued inpatient stay Substantial Risk for: inability to function Time Spent With Patient Time: Total time managing care of this patient today ____ minutes.
[2025-04-12 11:25] LABS: Glucose, Whole Blood 187 mg/dL (60-115)
[2025-04-12 16:17] LABS: Glucose, Whole Blood 122 mg/dL (60-115)
[2025-04-12] MEDS: Rivaroxaban 20 MG TABLET PO (18:10)
[2025-04-12 20:00] VITALS: BP 141/65; PULSE 64; RESP 16; TEMP 36.8; O2SAT 97
[2025-04-12 20:00] LABS: Glucose, Whole Blood 175 mg/dL (60-115)
[2025-04-12] MEDS: traZODone HCL 100 MG TABLET PO (21:06)
[2025-04-12] MEDS: Acetaminophen 325 MG TABLET 975 MG PO (23:14)
[2025-04-13] VITALS (7 sets, daily range): BP systolic 113–134; BP diastolic 57–65; PULSE 57–64; RESP 16–18; TEMP 36.3–36.4; O2SAT 95–97
[2025-04-13] MEDS: Levothyroxine Sodium 150 MCG TABLET PO (06:25)
[2025-04-13 06:36] LABS: Glucose, Whole Blood 169 mg/dL (60-115)
[2025-04-13] MEDS: Insulin Lispro 100 UNIT/ML 3 ML VIAL SUBCUT ×2 (08:22→21:07)
[2025-04-13] MEDS: carBAMazepine 200 MG TABLET PO ×2 (08:23→21:07)
[2025-04-13] MEDS: Amiodarone HCL 200 MG TABLET PO (08:24)
[2025-04-13] MEDS: glipiZIDE 5 MG TABLET PO (08:24)
[2025-04-13] MEDS: QUEtiapine Fumarate 200 MG TABLET PO ×2 (08:24→21:07)
[2025-04-13] MEDS: Cholecalciferol (Vitamin D3) 25 MCG TABLET PO (08:37)
--- NOTE | 2025-04-13 08:46 | HO.PSYCHPN ---
Subjective Subjective Date of Service: 04/13/25 Reason For Visit: chau Subjective Notes: Conditional Voluntary Healthcare Proxy: No Guardianship: No Medical Problems Affecting Mental Status: Yes (many comorbid conditions chronic- no acute medical illness) Interim History: 69 yo with bipolar not able to get her metoprolol due to low pulse today in 50s- Slept ok, going to call daughter to come help her shower- Asked patient to maybe let staff help her so daughter could get a break- patient hadn't thought of that- why doesn't she want to come 1 hr to help her - told her no was just provider idea to let daughter recharge while patient is here with support! Pt feels provider here has her on right medications , slept - denies current si /psychosis or med s/e. Medication Compliance: Yes Side effects from medications: Yes (low pulse from metoprolol 75mg bid) Attending Groups: Yes Review of Systems Acute medical concerns: No Medical Review of Systems: unchanged Mental Status Exam Mental Status Exam Patient Appearance: Well Grooomed and Appropriate Patient Orientation: Person, Place, Time and Situation Level of Consciousness: Awake and Alert Patient Behavior: Cooperative and Good Eye Contact Mood Description: Apprehensive (mildly defensive) Affect Description: Appropriate Patient Cognition Impaired: No Ability to Follow Directions: Good Speech Pattern: Clear Hallucinations: None Delusions: Not Present Thought Process: Intact and Goal Oriented Depressive Symptoms: Increased Anxiety and Increased Irritability Judgement: Fair Diagnostics Vital Signs (24Hr): Vital Signs - 24 hr 04/12/25 20:00 Temperature 98.3 F Pulse Rate 64 Respiratory Rate 16 Blood Pressure 141/65 H Pulse Oximetry 97 Oxygen Delivery Method Room Air BMI result Body Mass Index 43.7 Labs 03/23/25 08:01 04/11/25 13:51 Labs: Laboratory Results - last 48 hr 04/11/25 04/11/25 04/11/25 11:18 13:51 16:24 Sodium 137 Potassium 4.5 Chloride 106 Carbon Dioxide 20 L Anion Gap 16 BUN 16 Creatinine 0.84 Estim Creat Clear Calc 76.8 Estimated GFR > 60 POC Glucose 186 H 156 H Random Glucose 183 H Calcium 8.7 D Total Bilirubin 0.2 AST 29 ALT 19 Alkaline Phosphatase 69 Total Protein 6.8 Albumin 3.5 04/11/25 04/12/25 04/12/25 20:58 06:28 08:20 Sodium Potassium Chloride Carbon Dioxide Anion Gap BUN Creatinine Estim Creat Clear Calc Estimated GFR POC Glucose 165 H 169 H 180 H Random Glucose Calcium Total Bilirubin AST ALT Alkaline Phosphatase Total Protein Albumin 04/12/25 04/12/25 04/12/25 11:21 16:12 19:51 Sodium Potassium Chloride Carbon Dioxide Anion Gap BUN Creatinine Estim Creat Clear Calc Estimated GFR POC Glucose 187 H 122 H 175 H Random Glucose Calcium Total Bilirubin AST ALT Alkaline Phosphatase Total Protein Albumin 04/13/25 06:29 Sodium Potassium Chloride Carbon Dioxide Anion Gap BUN Creatinine Estim Creat Clear Calc Estimated GFR POC Glucose 169 H Random Glucose Calcium Total Bilirubin AST ALT Alkaline Phosphatase Total Protein Albumin Medications Medications Current Medications Acetaminophen (Acetaminophen 325 Mg Tablet) 975 mg PO DAILY PRN PRN Reason: Pain Last Admin: 04/12/25 23:14 Dose: 975 mg Acetaminophen (Acetaminophen 325 Mg Tablet) 650 mg PO Q6H PRN PRN Reason: Headache/Pain, Scale 1-10 Last Admin: 04/06/25 04:22 Dose: 650 mg Al Hydroxide/Mg Hydroxide (Magnesium Hydrox/Alum Hydrox 30 Ml Oral.Susp) 30 ml PO Q6H PRN PRN Reason: Heartburn/Nausea Amiodarone HCl (Amiodarone Hcl 200 Mg Tablet) 200 mg PO DAILY [facility] Last Admin: 04/13/25 08:24 Dose: 200 mg Artificial Tears (Artificial Tears 15 Ml Drops) 1 drop EYE-BOTH TID@0600,1500,2100 PRN PRN Reason: dry eyes Carbamazepine (Carbamazepine 200 Mg Tablet) 200 mg PO BID [facility] Last Admin: 04/13/25 08:23 Dose: 200 mg Dextrose (Dextrose 50 % 25 Gm/50 Ml Syringe) 25 gm IVPUSH Q15M PRN; Protocol PRN Reason: per Hypoglycemia Standing Ord. Furosemide (Furosemide 40 Mg Tablet) 40 mg PO DAILY [facility]; Protocol Last Admin: 04/11/25 09:45 Dose: Not Given Glipizide (Glipizide 5 Mg Tablet) 5 mg PO DAILY [facility] Last Admin: 04/13/25 08:24 Dose: 5 mg Glucose (Glucose Gel 15 Gm Gel..Gram.) 15 gm PO Q15M PRN; Protocol PRN Reason: per Hypoglycemia Standing Ord. Insulin Human Lispro (Insulin Lispro 100 Unit/Ml 3 Ml Vial) 0 unit SUBCUT QIDACHS [facility]; Protocol Last Admin: 04/13/25 08:22 Dose: 2 unit Levothyroxine Sodium (Levothyroxine Sodium 150 Mcg Tablet) 150 mcg PO DAILY@0600 [facility] Last Admin: 04/13/25 06:25 Dose: 150 mcg Magnesium Hydroxide (Milk Of Magnesia 30 Ml Oral.Susp) 30 ml PO DAILY PRN PRN Reason: Constipation Metoprolol Tartrate (Metoprolol Tartrate 25 Mg Tablet) 75 mg PO BID [facility]; Protocol Last Admin: 04/12/25 21:05 Dose: 75 mg Nicotine (Nicotine 21 Mg Patch.Td24) 21 mg TRANSDERMA DAILY PRN PRN Reason: smoking cessation Nicotine Polacrilex (Nicotine Polacrilex 2 Mg Gum) 4 mg BUCCAL Q2H PRN PRN Reason: Nicotine Cravings Nystatin (Nystatin Powder 15 Gm Bottle) 1 appl TOPICAL BID [facility]; Protocol Last Admin: 04/12/25 21:51 Dose: 1 appl Olanzapine (Olanzapine 5 Mg Tablet) 5 mg PO TID PRN PRN Reason: agitation Last Admin: 04/06/25 01:46 Dose: 5 mg Quetiapine Fumarate (Quetiapine Fumarate 200 Mg Tablet) 200 mg PO BID [facility] Last Admin: 04/13/25 08:24 Dose: 200 mg Rivaroxaban (Rivaroxaban 20 Mg Tablet) 20 mg PO DAILY@1700 [facility] Last Admin: 04/12/25 18:10 Dose: 20 mg Sacubitril/Valsartan (Sacubitril/Valsartan 1 Tab Tablet) 1 tab PO BID [facility]; Protocol Last Admin: 04/12/25 21:06 Dose: 1 tab Spironolactone (Spironolactone 25 Mg Tablet) 25 mg PO DAILY [facility]; Protocol Last Admin: 04/12/25 08:59 Dose: 25 mg Trazodone HCl (Trazodone Hcl 100 Mg Tablet) 100 mg PO BEDTIME [facility] Last Admin: 04/12/25 21:06 Dose: 100 mg Vitamin D (Cholecalciferol (Vitamin D3) 25 Mcg Tablet) 25 mcg PO DAILY [facility] Last Admin: 04/13/25 08:37 Dose: 25 mcg Allergies Allergies Allergy/AdvReac Type Severity Reaction Status Date / Time divalproex sodium Allergy Mild diarrhea, Verified 03/23/25 07:44 [From Depakote] brain fog gluten Allergy Mild Unknown Verified 03/23/25 07:44 hazelnut Allergy Unknown Unknown Verified 01/15/25 10:01 shellfish derived Allergy Unknown Unknown Verified 01/15/25 10:01 sesame seeds Allergy Unknown Unknown Uncoded 01/15/25 10:01 Assessment & Plan Assessment & Plan (1) Bipolar 1 disorder: Status: Acute Code(s): F31.9 - Bipolar disorder, unspecified Plan 69-year-old female with past medical history of bipolar, PTSD, AFib, hypothyroidism, hypertension, LBBB, presented to [facility] ED via ambulance on 03/23/2025 for chau, paranoia, and auditory hallucinations. She notes that she had a verbal altercation immediately before presenting to the ED. She states that she received the call from her psychiatrist who inform her that she was returning a call regarding a voicemail she received from their home; the voicemail noted that the patient has not been sleeping and needed more medications. The patient inform her psychiatrist that she was unaware of the call which her may have made. She states that her is in charge of administering her medications and was giving her more of her medications than prescribed, and made her groggy. Therefore, she came the trazodone, without knowledge, and was not on the medication for 3 days; however, she slept adequately. Also, was upset after she recently told him she decided not to go to the appointment with the director of the home regarding her plan for cremation and that she change her MOLST from DNR to full code. She notes that her is controlling and does not want her to make decisions about her life. Therefore, she did some research on the Internet and confirmed that her has been a narcissist for the 30 years they been together. As the verbal altercation regarding her 's voicemail to her psychiatrist, which she was unaware of, escalated, the patient has called and asked her daughter to call 911, and she did. Patient was brought to the emergency department. She notes that she sleeps an average of 4-6 hours nightly. Sometimes, she would be awake, and not fall asleep at all, for 1-2 days; however, she does not recall the last time that happened. Per CARE team report, patient's reported that the patient had not slept for 3-4 days and stopped taking her psychotropic medications for about 3 weeks; there is a significant decline in her functioning. Patient denies SI, HI, AVH. She denies drugs or alcohol use. U tox was negative. BAL is 13. Formulation/Clinical reasoning: Bipolar 1 disorder with manic episode: Likely due to not taking her medications for about 3 weeks, leading to significant decline, including chau, paranoia, and functional impairment. Will continue current treatment regimen for now and will make adjustment as needed. She currently has UTI which may also contribute to her mental declines; she is currently treated with cefuroxime which is resistant to the current causative bacteria; will discontinue so fluoxetine and start nitrofurantoin for UTI. Hospital course: 03/28: Patient notes that she is in a good mood today. She had been taking her medications as prescribed. Her daughter is visiting and present. She notes that she slept last night. She denies SI/HI/AH/VH. Her daughter told social science teacher that she was very concerned about the patient who went to the bank in her nightgown and transferred 4000 dollars from her 's account into hers. She was subsequently brought home by the police from her friend's home. Continue current treatment regimen. 03/29 remains plesant but paranoid; will continue to see if restarting home regimen will be enough to bring her back to baseline; if not, will either increase doses or augment -may do better on Jamie 03/30: Continue current regimen and plans. 03/31: Continue current regimen and plans. 04/01: some reduction in paranoia; pt feeling differently about her , talking w/ him on the phone; she asked junior copywriter change his status, saying she now wants him to come and visit her and wants to receive phone calls from from him. -transfer to [facility]; pt agrees 04/02 continue tx. will check EKG given qtc prolonging meds and hx of qtc prolongation. 04/03 continue tx. QTc 503 (506 on admit) cardiology consult for guidance in proceeding with her care. 04/04 decrease trazodone to 100mg po qhs. may add ativan at night time for sleep as needed. Will contact OP provider for collateral information. Pt used to be on risperidone, unclear why it was d/cr. may need mood stabilizer, did become more confused with depakote. renal function decreased in 77, but may consider lithium or carbamazepine. 04/05 pt refusing medical medications stating God does not want her to do so. Questioning her dx of DM and whether is true that BS have been elevated in the past month including worsening of A1C from 7% to 7.9% in last few months. jain and paranoid ideas towards and staff here. This junior copywriter discussed with pt adding mood stabilizer, however, options between lithium and carbamazepine, given that pt had depakote in past but became more confused on it. If decide to go with lithium- keeping in mind pt also on lasix and losartan. or Carbamazepine lowers level of amiodarone and eliquis (and seroquel). seen by hospitalist today due to bilat edema started on lasix, added daily weights given HF. attempted to call OP provider but unable to leave message through [facility]. pt used to be on risperidone- unclear if d/cr due to EPS side effects. 04/06: refusing medical meds yesterday, took them today. appears to be doubting her delusional system yet remains compelled by it. encouraged to continue taking both medical meds as well as seroquel. slept 5 hours. 04/07: seems to be doing better, taking DM medications and not preoccupied with delusional material. continue current mgmt. 04/08 continue tx. consider adding carbamazepine as mood stabilizer, continue seroquel 04/09 carbamazepine 200mg po BID 04/10 lower seroquel in morning to 200mg po daily. 04/11 continue tx. 04/13 lower metoprolol to 50mg bid watch pulse/bp Plan Admit to M5. CV 15 minutes check. Diagnostics as needed. Collateral contact. Continue remainder of regime. Encouraged full milieu. Discharge planning. Patient educated on: medication risk/benefits Informed Consent: understands Reason for continued inpatient stay Substantial Risk for: rapid decompensation Time Spent With Patient Time: Total time managing care of this patient today ____ minutes.
[2025-04-13] MEDS: Sacubitril/Valsartan 24/26 1 TAB TABLET PO ×2 (08:57→21:06)
[2025-04-13] MEDS: Spironolactone 25 MG TABLET PO (09:00)
[2025-04-13] MEDS: Nystatin Powder 15 GM BOTTLE 1 APPL TOPICAL ×2 (09:02→21:06)
[2025-04-13 11:28] LABS: Glucose, Whole Blood 158 mg/dL (60-115)
[2025-04-13 16:23] LABS: Glucose, Whole Blood 122 mg/dL (60-115)
[2025-04-13] MEDS: Rivaroxaban 20 MG TABLET PO (17:37)
[2025-04-13 20:09] LABS: Glucose, Whole Blood 173 mg/dL (60-115)
[2025-04-13] MEDS: traZODone HCL 100 MG TABLET PO (21:06)
[2025-04-13] MEDS: Metoprolol Tartrate 50 MG TABLET PO (21:07)
[2025-04-14 06:00] VITALS: BMI 43.5
[2025-04-14] MEDS: Levothyroxine Sodium 150 MCG TABLET PO (06:28)
[2025-04-14 06:35] LABS: Glucose, Whole Blood 156 mg/dL (60-115)
[2025-04-14 08:00] VITALS: BP 138/63; PULSE 63; RESP 16; TEMP 36.4; O2SAT 95
[2025-04-14] MEDS: Insulin Lispro 100 UNIT/ML 3 ML VIAL SUBCUT ×2 (08:09→20:16)
[2025-04-14 08:11] VITALS: BP 138/63
[2025-04-14] MEDS: Sacubitril/Valsartan 24/26 1 TAB TABLET PO ×2 (08:11→20:20)
[2025-04-14] MEDS: carBAMazepine 200 MG TABLET PO (08:11)
[2025-04-14 08:12] VITALS: BP 138/63; PULSE 63
[2025-04-14] MEDS: Spironolactone 25 MG TABLET PO (08:12)
[2025-04-14] MEDS: Amiodarone HCL 200 MG TABLET PO (08:12)
[2025-04-14] MEDS: Cholecalciferol (Vitamin D3) 25 MCG TABLET PO (08:12)
[2025-04-14] MEDS: Metoprolol Tartrate 50 MG TABLET PO ×2 (08:12→20:18)
[2025-04-14] MEDS: glipiZIDE 5 MG TABLET PO (08:13)
--- NOTE | 2025-04-14 09:47 | P.PNPSI_ITS ---
Subjective Subjective Date of Service: 04/14/25 Reason For Visit: chau Subjective Notes: Conditional Voluntary Healthcare Proxy: No Guardianship: No Medical Problems Affecting Mental Status: No Interim History: [age] yo feeling much better - and more herself , feels ready to go home- Dressed and appropriate today with no complaints- Slept ok, energy ok= denies s/e of medication We held her metoprolol 75mg bid yesterday due to low pulse- getting it today with 50mg bid and good bp/pulse control- Medication Compliance: Yes Side effects from medications: No Attending Groups: Intermittent Review of Systems Acute medical concerns: No Medical Review of Systems: unchanged Mental Status Exam Mental Status Exam Patient Appearance: Well Grooomed and Appropriate Patient Orientation: Person, Place, Time and Situation Level of Consciousness: Awake and Alert Patient Behavior: Appropriate and Cooperative Mood Description: Calm Affect Description: Calm and Appropriate Patient Cognition Impaired: No Ability to Follow Directions: Good Speech Pattern: Clear Hallucinations: None Delusions: Not Present Thought Process: Intact and Goal Oriented Thought Content: positive for Intact Judgement: Good Diagnostics Vital Signs (24Hr): Vital Signs - 24 hr 04/13/25 20:00 04/13/25 21:06 04/13/25 21:07 Temperature 97.3 F Pulse Rate 64 64 Respiratory Rate 16 Blood Pressure 134/65 134/65 134/65 Pulse Oximetry 95 Oxygen Delivery Method Room Air 04/14/25 08:11 04/14/25 08:12 04/14/25 08:12 Temperature Pulse Rate 63 Respiratory Rate Blood Pressure 138/63 138/63 138/63 Pulse Oximetry Oxygen Delivery Method BMI result Body Mass Index 43.5 Labs 03/23/25 08:01 04/11/25 13:51 Labs: Laboratory Results - last 48 hr 04/12/25 04/12/25 04/12/25 11:21 16:12 19:51 POC Glucose 187 H 122 H 175 H 04/13/25 04/13/25 04/13/25 06:29 11:24 16:19 POC Glucose 169 H 158 H 122 H 04/13/25 04/14/25 20:04 06:30 POC Glucose 173 H 156 H Medications Medications Current Medications Acetaminophen (Acetaminophen 325 Mg Tablet) 975 mg PO DAILY PRN PRN Reason: Pain Last Admin: 04/12/25 23:14 Dose: 975 mg Acetaminophen (Acetaminophen 325 Mg Tablet) 650 mg PO Q6H PRN PRN Reason: Headache/Pain, Scale 1-10 Last Admin: 04/06/25 04:22 Dose: 650 mg Al Hydroxide/Mg Hydroxide (Magnesium Hydrox/Alum Hydrox 30 Ml Oral.Susp) 30 ml PO Q6H PRN PRN Reason: Heartburn/Nausea Amiodarone HCl (Amiodarone Hcl 200 Mg Tablet) 200 mg PO DAILY [facility] Last Admin: 04/14/25 08:12 Dose: 200 mg Artificial Tears (Artificial Tears 15 Ml Drops) 1 drop EYE-BOTH TID@0600,1500,2100 PRN PRN Reason: dry eyes Carbamazepine (Carbamazepine 200 Mg Tablet) 200 mg PO BID [facility] Last Admin: 04/14/25 08:11 Dose: 200 mg Dextrose (Dextrose 50 % 25 Gm/50 Ml Syringe) 25 gm IVPUSH Q15M PRN; Protocol PRN Reason: per Hypoglycemia Standing Ord. Furosemide (Furosemide 40 Mg Tablet) 40 mg PO DAILY [facility]; Protocol Last Admin: 04/11/25 09:45 Dose: Not Given Glipizide (Glipizide 5 Mg Tablet) 5 mg PO DAILY [facility] Last Admin: 04/14/25 08:13 Dose: 5 mg Glucose (Glucose Gel 15 Gm Gel..Gram.) 15 gm PO Q15M PRN; Protocol PRN Reason: per Hypoglycemia Standing Ord. Insulin Human Lispro (Insulin Lispro 100 Unit/Ml 3 Ml Vial) 0 unit SUBCUT QIDACHS [facility]; Protocol Last Admin: 04/14/25 08:09 Dose: 2 unit Levothyroxine Sodium (Levothyroxine Sodium 150 Mcg Tablet) 150 mcg PO DAILY@0600 [facility] Last Admin: 04/14/25 06:28 Dose: 150 mcg Magnesium Hydroxide (Milk Of Magnesia 30 Ml Oral.Susp) 30 ml PO DAILY PRN PRN Reason: Constipation Metoprolol Tartrate (Metoprolol Tartrate 50 Mg Tablet) 50 mg PO BID [facility]; Protocol Last Admin: 04/14/25 08:12 Dose: 50 mg Nicotine (Nicotine 21 Mg Patch.Td24) 21 mg TRANSDERMA DAILY PRN PRN Reason: smoking cessation Nicotine Polacrilex (Nicotine Polacrilex 2 Mg Gum) 4 mg BUCCAL Q2H PRN PRN Reason: Nicotine Cravings Nystatin (Nystatin Powder 15 Gm Bottle) 1 appl TOPICAL BID [facility]; Protocol Last Admin: 04/13/25 21:06 Dose: 1 appl Olanzapine (Olanzapine 5 Mg Tablet) 5 mg PO TID PRN PRN Reason: agitation Last Admin: 04/06/25 01:46 Dose: 5 mg Quetiapine Fumarate (Quetiapine Fumarate 200 Mg Tablet) 200 mg PO BEDTIME [facility] Last Admin: 04/13/25 21:07 Dose: 200 mg Rivaroxaban (Rivaroxaban 20 Mg Tablet) 20 mg PO DAILY@1700 [facility] Last Admin: 04/13/25 17:37 Dose: 20 mg Sacubitril/Valsartan (Sacubitril/Valsartan 1 Tab Tablet) 1 tab PO BID [facility]; Protocol Last Admin: 04/14/25 08:11 Dose: 1 tab Spironolactone (Spironolactone 25 Mg Tablet) 25 mg PO DAILY [facility]; Protocol Last Admin: 04/14/25 08:12 Dose: 25 mg Trazodone HCl (Trazodone Hcl 100 Mg Tablet) 100 mg PO BEDTIME [facility] Last Admin: 04/13/25 21:06 Dose: 100 mg Vitamin D (Cholecalciferol (Vitamin D3) 25 Mcg Tablet) 25 mcg PO DAILY [facility] Last Admin: 04/14/25 08:12 Dose: 25 mcg Allergies Allergies Allergy/AdvReac Type Severity Reaction Status Date / Time divalproex sodium Allergy Mild diarrhea, Verified 03/23/25 07:44 [From Depakote] brain fog gluten Allergy Mild Unknown Verified 03/23/25 07:44 hazelnut Allergy Unknown Unknown Verified 01/15/25 10:01 shellfish derived Allergy Unknown Unknown Verified 01/15/25 10:01 sesame seeds Allergy Unknown Unknown Uncoded 01/15/25 10:01 Assessment & Plan Assessment & Plan (1) Bipolar 1 disorder: Status: Acute Code(s): F31.9 - Bipolar disorder, unspecified Plan 69-year-old female with past medical history of bipolar, PTSD, AFib, hypothyroidism, hypertension, LBBB, presented to [facility] via ambulance on 03/23/2025 for chau, paranoia, and auditory hallucinations. She notes that she had a verbal altercation immediately before presenting to the ED. She states that she received the call from her psychiatrist who inform her that she was returning a call regarding a voicemail she received from their home; the voicemail noted that the patient has not been sleeping and needed more medications. The patient inform her psychiatrist that she was unaware of the call which her may have made. She states that her is in charge of administering her medications and was giving her more of her medications than prescribed, and made her groggy. Therefore, she came the trazodone, without knowledge, and was not on the medication for 3 days; however, she slept adequately. Also, was upset after she recently told him she decided not to go to the appointment with the director of the home regarding her plan for cremation and that she change her MOLST from DNR to full code. She notes that her is controlling and does not want her to make decisions about her life. Therefore, she did some research on the Internet and confirmed that her has been a narcissist for the 30 years they been together. As the verbal altercation regarding her 's voicemail to her psychiatrist, which she was unaware of, escalated, the patient has called and asked her daughter to call 911, and she did. Patient was brought to the emergency department. She notes that she sleeps an average of 4-6 hours nightly. Sometimes, she would be awake, and not fall asleep at all, for 1-2 days; however, she does not recall the last time that happened. Per CARE team report, patient's reported that the patient had not slept for 3-4 days and stopped taking her psychotropic medications for about 3 weeks; there is a significant decline in her functioning. Patient denies SI, HI, AVH. She denies drugs or alcohol use. U tox was negative. BAL is 13. Formulation/Clinical reasoning: Bipolar 1 disorder with manic episode: Likely due to not taking her medications for about 3 weeks, leading to significant decline, including chau, paranoia, and functional impairment. Will continue current treatment regimen for now and will make adjustment as needed. She currently has UTI which may also contribute to her mental declines; she is currently treated with cefuroxime which is resistant to the current causative bacteria; will discontinue so fluoxetine and start nitrofurantoin for UTI. Hospital course: 03/28: Patient notes that she is in a good mood today. She had been taking her medications as prescribed. Her daughter is visiting and present. She notes that she slept last night. She denies SI/HI/AH/VH. Her daughter told social work specialist that she was very concerned about the patient who went to the bank in her nightgown and transferred 4000 dollars from her 's account into hers. She was subsequently brought home by the police from her friend's home. Continue current treatment regimen. 03/29 remains plesant but paranoid; will continue to see if restarting home regimen will be enough to bring her back to baseline; if not, will either increase doses or augment -may do better on Jamie 03/30: Continue current regimen and plans. 03/31: Continue current regimen and plans. 04/01: some reduction in paranoia; pt feeling differently about her , talking w/ him on the phone; she asked casualty underwriter change his status, saying she now wants him to come and visit her and wants to receive phone calls from from him. -transfer to [facility]; pt agrees 04/02 continue tx. will check EKG given qtc prolonging meds and hx of qtc prolongation. 04/03 continue tx. QTc 503 (506 on admit) cardiology consult for guidance in proceeding with her care. 04/04 decrease trazodone to 100mg po qhs. may add ativan at night time for sleep as needed. Will contact OP provider for collateral information. Pt used to be on risperidone, unclear why it was d/cr. may need mood stabilizer, did become more confused with depakote. renal function decreased in 77, but may consider lithium or carbamazepine. 04/05 pt refusing medical medications stating God does not want her to do so. Questioning her dx of DM and whether is true that BS have been elevated in the past month including worsening of A1C from 7% to 7.9% in last few months. orthodoxy and paranoid ideas towards and staff here. This casualty underwriter discussed with pt adding mood stabilizer, however, options between lithium and carbamazepine, given that pt had depakote in past but became more confused on it. If decide to go with lithium- keeping in mind pt also on lasix and losartan. or Carbamazepine lowers level of amiodarone and eliquis (and seroquel). seen by hospitalist today due to bilat edema started on lasix, added daily weights given HF. attempted to call OP provider but unable to leave message through [facility]. pt used to be on risperidone- unclear if d/cr due to EPS side effects. 04/06: refusing medical meds yesterday, took them today. appears to be doubting her delusional system yet remains compelled by it. encouraged to continue taking both medical meds as well as seroquel. slept 5 hours. 04/07: seems to be doing better, taking DM medications and not preoccupied with delusional material. continue current mgmt. 04/08 continue tx. consider adding carbamazepine as mood stabilizer, continue seroquel 04/09 carbamazepine 200mg po BID 04/10 lower seroquel in morning to 200mg po daily. 04/11 continue tx. 04/13 lower metoprolol to 50mg bid watch pulse/bp 04/14 - seems back to baseline possibly- Plan Admit to [facility]. CV 15 minutes check. Diagnostics as needed. Collateral contact. Continue remainder of regime. Encouraged full milieu. Discharge planning. Patient educated on: medication risk/benefits and medical condition Informed Consent: understands Reason for continued inpatient stay Substantial Risk for: rapid decompensation Time Spent With Patient Time: Total time managing care of this patient today ____ minutes.
[2025-04-14 11:30] LABS: Glucose, Whole Blood 148 mg/dL (60-115)
[2025-04-14] MEDS: Rivaroxaban 20 MG TABLET PO (16:14)
[2025-04-14] MEDS: Acetaminophen 325 MG TABLET 975 MG PO (16:15)
[2025-04-14 16:23] LABS: Glucose, Whole Blood 117 mg/dL (60-115)
[2025-04-14 19:57] LABS: Glucose, Whole Blood 210 mg/dL (60-115)
[2025-04-14 20:00] VITALS: BP 173/82; PULSE 74; RESP 16; TEMP 36.2; O2SAT 96
[2025-04-14] MEDS: traZODone HCL 100 MG TABLET PO (20:20)
[2025-04-14] MEDS: QUEtiapine Fumarate 200 MG TABLET PO (20:20)
[2025-04-15] MEDS: Levothyroxine Sodium 150 MCG TABLET PO (05:48)
[2025-04-15] MEDS: Artificial Tears 15 ML DROPS 1 DROP EYE-BOTH ×2 (05:53→09:02)
[2025-04-15 06:07] LABS: Glucose, Whole Blood 187 mg/dL (60-115)
[2025-04-15 06:31] VITALS: BMI 43.0
[2025-04-15 08:00] VITALS: BP 145/63; PULSE 60; RESP 18; TEMP 36.2; O2SAT 96
[2025-04-15 08:12] LABS: Glucose, Whole Blood 195 mg/dL (60-115)
[2025-04-15 08:15] LABS: Carbamazepine Tegretol 8.1 mcg/mL (5.0-12.0)
--- NOTE | 2025-04-15 08:51 | P.PNPSI_ITS ---
Subjective Subjective Date of Service: 04/15/25 Reason For Visit: chau Subjective Notes: Conditional Voluntary Healthcare Proxy: Yes Interim History: Pt slept through the night. She presents with less paranoid and oriental orthodox ideas. She reports she feels better in that she is not as sedated with reduction of seroquel. We discussed switching to latuda- note that in combination with carbamazepine, which is a strong inducer of CYP 3A4, dose of latuda may need to be increase. However, latuda has less sedation, no significant risk for EPS (which pt is prone to). Pt denies SI/HI. No overt psychosis. visible, attending more groups, less labile. Mental Status Exam Mental Status Exam Narrative: Appearance: wearing own clothes, fair hygiene, in NAD Behavior: friendly Psychomotor: no agitation or retardation noted Speech: clear, normal rate/rhythm/volume, spontaneous TP: linear TC: no delusions or paranoia expressed Mood: not assessed Affect: constricted SI: none expressed HI: none expressed VH/AH: none expressed Insight/judgment: impaired due to psychiatric illness Memory/cog: alert, oriented x 3. Diagnostics Vital Signs (24Hr): Vital Signs - 24 hr 04/14/25 20:00 04/15/25 08:00 Temperature 97.2 F 97.2 F Pulse Rate 74 60 Respiratory Rate 16 18 Blood Pressure 173/82 H 145/63 H Pulse Oximetry 96 96 Oxygen Delivery Method Room Air Room Air BMI result Body Mass Index 43.0 Labs 03/23/25 08:01 04/11/25 13:51 Labs: Laboratory Results - last 48 hr 04/13/25 04/13/25 04/13/25 11:24 16:19 20:04 POC Glucose 158 H 122 H 173 H Carbamazepine 04/14/25 04/14/25 04/14/25 06:30 11:26 16:13 POC Glucose 156 H 148 H 117 H Carbamazepine 04/14/25 04/15/25 04/15/25 19:53 06:03 07:33 POC Glucose 210 H 187 H Carbamazepine 8.1 04/15/25 08:08 POC Glucose 195 H Carbamazepine Medications Medications Current Medications Acetaminophen (Acetaminophen 325 Mg Tablet) 975 mg PO DAILY PRN PRN Reason: Pain Last Admin: 04/14/25 16:15 Dose: 975 mg Acetaminophen (Acetaminophen 325 Mg Tablet) 650 mg PO Q6H PRN PRN Reason: Headache/Pain, Scale 1-10 Last Admin: 04/06/25 04:22 Dose: 650 mg Al Hydroxide/Mg Hydroxide (Magnesium Hydrox/Alum Hydrox 30 Ml Oral.Susp) 30 ml PO Q6H PRN PRN Reason: Heartburn/Nausea Amiodarone HCl (Amiodarone Hcl 200 Mg Tablet) 200 mg PO DAILY [facility] Last Admin: 04/14/25 08:12 Dose: 200 mg Artificial Tears (Artificial Tears 15 Ml Drops) 1 drop EYE-BOTH TID@0600,1500,2100 PRN PRN Reason: dry eyes Carbamazepine (Carbamazepine 200 Mg Tablet) 200 mg PO BID [facility] Last Admin: 04/14/25 20:20 Dose: Not Given Dextrose (Dextrose 50 % 25 Gm/50 Ml Syringe) 25 gm IVPUSH Q15M PRN; Protocol PRN Reason: per Hypoglycemia Standing Ord. Furosemide (Furosemide 40 Mg Tablet) 40 mg PO DAILY [facility]; Protocol Last Admin: 04/11/25 09:45 Dose: Not Given Glipizide (Glipizide 5 Mg Tablet) 5 mg PO DAILY [facility] Last Admin: 04/14/25 08:13 Dose: 5 mg Glucose (Glucose Gel 15 Gm Gel..Gram.) 15 gm PO Q15M PRN; Protocol PRN Reason: per Hypoglycemia Standing Ord. Insulin Human Lispro (Insulin Lispro 100 Unit/Ml 3 Ml Vial) 0 unit SUBCUT QIDACHS [facility]; Protocol Last Admin: 04/14/25 20:16 Dose: 4 unit Levothyroxine Sodium (Levothyroxine Sodium 150 Mcg Tablet) 150 mcg PO DAILY@0600 [facility] Last Admin: 04/15/25 05:48 Dose: 150 mcg Magnesium Hydroxide (Milk Of Magnesia 30 Ml Oral.Susp) 30 ml PO DAILY PRN PRN Reason: Constipation Metoprolol Tartrate (Metoprolol Tartrate 50 Mg Tablet) 50 mg PO BID [facility]; Protocol Last Admin: 04/14/25 20:18 Dose: 50 mg Nicotine (Nicotine 21 Mg Patch.Td24) 21 mg TRANSDERMA DAILY PRN PRN Reason: smoking cessation Nicotine Polacrilex (Nicotine Polacrilex 2 Mg Gum) 4 mg BUCCAL Q2H PRN PRN Reason: Nicotine Cravings Olanzapine (Olanzapine 5 Mg Tablet) 5 mg PO TID PRN PRN Reason: agitation Last Admin: 04/06/25 01:46 Dose: 5 mg Quetiapine Fumarate (Quetiapine Fumarate 200 Mg Tablet) 200 mg PO BEDTIME [facility] Last Admin: 04/14/25 20:20 Dose: 200 mg Rivaroxaban (Rivaroxaban 20 Mg Tablet) 20 mg PO DAILY@1700 [facility] Last Admin: 04/14/25 16:14 Dose: 20 mg Sacubitril/Valsartan (Sacubitril/Valsartan 1 Tab Tablet) 1 tab PO BID [facility]; Protocol Last Admin: 04/14/25 20:20 Dose: 1 tab Spironolactone (Spironolactone 25 Mg Tablet) 25 mg PO DAILY [facility]; Protocol Last Admin: 04/14/25 08:12 Dose: 25 mg Trazodone HCl (Trazodone Hcl 100 Mg Tablet) 100 mg PO BEDTIME [facility] Last Admin: 04/14/25 20:20 Dose: 100 mg Vitamin D (Cholecalciferol (Vitamin D3) 25 Mcg Tablet) 25 mcg PO DAILY [facility] Last Admin: 04/14/25 08:12 Dose: 25 mcg Allergies Allergies Allergy/AdvReac Type Severity Reaction Status Date / Time divalproex sodium Allergy Mild diarrhea, Verified 03/23/25 07:44 [From Depakote] brain fog gluten Allergy Mild Unknown Verified 03/23/25 07:44 hazelnut Allergy Unknown Unknown Verified 01/15/25 10:01 shellfish derived Allergy Unknown Unknown Verified 01/15/25 10:01 sesame seeds Allergy Unknown Unknown Uncoded 01/15/25 10:01 Assessment & Plan Assessment & Plan (1) Bipolar 1 disorder: Status: Acute Code(s): F31.9 - Bipolar disorder, unspecified Plan 69-year-old female with past medical history of bipolar, PTSD, AFib, hypothyroidism, hypertension, LBBB, presented to [facility] via ambulance on 03/23/2025 for chau, paranoia, and auditory hallucinations. She notes that she had a verbal altercation immediately before presenting to the ED. She states that she received the call from her psychiatrist who inform her that she was returning a call regarding a voicemail she received from their home; the voicemail noted that the patient has not been sleeping and needed more medications. The patient inform her psychiatrist that she was unaware of the call which her may have made. She states that her is in charge of administering her medications and was giving her more of her medications than prescribed, and made her groggy. Therefore, she came the trazodone, without knowledge, and was not on the medication for 3 days; however, she slept adequately. Also, was upset after she recently told him she decided not to go to the appointment with the director of the home regarding her plan for cremation and that she change her MOLST from DNR to full code. She notes that her is controlling and does not want her to make decisions about her life. Therefore, she did some research on the Internet and confirmed that her has been a narcissist for the 30 years they been together. As the verbal altercation regarding her 's voicemail to her psychiatrist, which she was unaware of, escalated, the patient has called and asked her daughter to call 911, and she did. Patient was brought to the emergency department. She notes that she sleeps an average of 4-6 hours nightly. Sometimes, she would be awake, and not fall asleep at all, for 1-2 days; however, she does not recall the last time that happened. Per CARE team report, patient's reported that the patient had not slept for 3-4 days and stopped taking her psychotropic medications for about 3 weeks; there is a significant decline in her functioning. Patient denies SI, HI, AVH. She denies drugs or alcohol use. U tox was negative. BAL is 13. Formulation/Clinical reasoning: Bipolar 1 disorder with manic episode: Likely due to not taking her medications for about 3 weeks, leading to significant decline, including chau, paranoia, and functional impairment. Will continue current treatment regimen for now and will make adjustment as needed. She currently has UTI which may also contribute to her mental declines; she is currently treated with cefuroxime which is resistant to the current causative bacteria; will discontinue so fluoxetine and start nitrofurantoin for UTI. Hospital course: 03/28: Patient notes that she is in a good mood today. She had been taking her medications as prescribed. Her daughter is visiting and present. She notes that she slept last night. She denies SI/HI/AH/VH. Her daughter told social director that she was very concerned about the patient who went to the bank in her nightgown and transferred 4000 dollars from her 's account into hers. She was subsequently brought home by the police from her friend's home. Continue current treatment regimen. 03/29 remains plesant but paranoid; will continue to see if restarting home regimen will be enough to bring her back to baseline; if not, will either increase doses or augment -may do better on Jamie 03/30: Continue current regimen and plans. 03/31: Continue current regimen and plans. 04/01: some reduction in paranoia; pt feeling differently about her , talking w/ him on the phone; she asked global technical writer change his status, saying she now wants him to come and visit her and wants to receive phone calls from from him. -transfer to [facility]; pt agrees 04/02 continue tx. will check EKG given qtc prolonging meds and hx of qtc prolongation. 04/03 continue tx. QTc 503 (506 on admit) cardiology consult for guidance in proceeding with her care. 04/04 decrease trazodone to 100mg po qhs. may add ativan at night time for sleep as needed. Will contact OP provider for collateral information. Pt used to be on risperidone, unclear why it was d/cr. may need mood stabilizer, did become more confused with depakote. renal function decreased in 77, but may consider lithium or carbamazepine. 04/05 pt refusing medical medications stating God does not want her to do so. Questioning her dx of DM and whether is true that BS have been elevated in the past month including worsening of A1C from 7% to 7.9% in last few months. oriental orthodox and paranoid ideas towards and staff here. This global technical writer discussed with pt adding mood stabilizer, however, options between lithium and carbamazepine, given that pt had depakote in past but became more confused on it. If decide to go with lithium- keeping in mind pt also on lasix and losartan. or Carbamazepine lowers level of amiodarone and eliquis (and seroquel). seen by hospitalist today due to bilat edema started on lasix, added daily weights given HF. attempted to call OP provider but unable to leave message through [facility]. pt used to be on risperidone- unclear if d/cr due to EPS side effects. 04/06: refusing medical meds yesterday, took them today. appears to be doubting her delusional system yet remains compelled by it. encouraged to continue taking both medical meds as well as seroquel. slept 5 hours. 04/07: seems to be doing better, taking DM medications and not preoccupied with delusional material. continue current mgmt. 04/08 continue tx. consider adding carbamazepine as mood stabilizer, continue seroquel 04/09 carbamazepine 200mg po BID 04/10 lower seroquel in morning to 200mg po daily. 04/11 continue tx. 04/13 lower metoprolol to 50mg bid watch pulse/bp 04/15- will lower seroquel to 100mg po qhs. start latuda 60mg po with dinner, note that she is also on carbamazepine which induces metabolism of latuda, pt may need higher doses of this medication. Reason for continued inpatient stay Substantial Risk for: inability to function Time Spent With Patient Time: Total time managing care of this patient today ____ minutes.
[2025-04-15] MEDS: Insulin Lispro 100 UNIT/ML 3 ML VIAL SUBCUT ×3 (08:59→20:31)
[2025-04-15] MEDS: Cholecalciferol (Vitamin D3) 25 MCG TABLET PO (09:02)
[2025-04-15] MEDS: Amiodarone HCL 200 MG TABLET PO (09:02)
[2025-04-15] MEDS: glipiZIDE 5 MG TABLET PO (09:02)
[2025-04-15] MEDS: carBAMazepine 200 MG TABLET PO ×2 (09:03→20:32)
[2025-04-15] MEDS: Spironolactone 25 MG TABLET PO (09:03)
[2025-04-15] MEDS: Sacubitril/Valsartan 24/26 1 TAB TABLET PO ×2 (09:03→20:32)
[2025-04-15] MEDS: Metoprolol Tartrate 50 MG TABLET PO ×2 (09:03→20:32)
[2025-04-15 11:33] LABS: Glucose, Whole Blood 160 mg/dL (60-115)
[2025-04-15 16:26] LABS: Glucose, Whole Blood 146 mg/dL (60-115)
[2025-04-15] MEDS: Lurasidone HCl 20 MG TABLET 60 MG PO (16:35)
[2025-04-15] MEDS: Rivaroxaban 20 MG TABLET PO (16:35)
[2025-04-15 20:00] VITALS: BP 150/72; PULSE 62; RESP 17; TEMP 36.2; O2SAT 95
[2025-04-15 20:10] LABS: Glucose, Whole Blood 198 mg/dL (60-115)
[2025-04-15 20:32] VITALS: BP 150/72; PULSE 62
[2025-04-15] MEDS: traZODone HCL 100 MG TABLET PO (20:32)
[2025-04-15] MEDS: QUEtiapine Fumarate 100 MG TABLET PO (20:32)
[2025-04-16] MEDS: Levothyroxine Sodium 150 MCG TABLET PO (06:23)
[2025-04-16] MEDS: Artificial Tears 15 ML DROPS 1 DROP EYE-BOTH (06:34)
[2025-04-16 06:52] LABS: Glucose, Whole Blood 168 mg/dL (60-115)
[2025-04-16 07:30] VITALS: BMI 43.1
[2025-04-16 07:51] VITALS: BP 125/58; PULSE 58; RESP 18; TEMP 36.2; O2SAT 97
[2025-04-16] MEDS: Insulin Lispro 100 UNIT/ML 3 ML VIAL SUBCUT ×3 (07:52→21:20)
[2025-04-16] MEDS: Cholecalciferol (Vitamin D3) 25 MCG TABLET PO (07:53)
[2025-04-16] MEDS: Spironolactone 25 MG TABLET PO (07:53)
[2025-04-16] MEDS: glipiZIDE 5 MG TABLET PO (07:53)
[2025-04-16] MEDS: Sacubitril/Valsartan 24/26 1 TAB TABLET PO ×2 (07:54→21:17)
[2025-04-16] MEDS: Amiodarone HCL 200 MG TABLET PO (07:54)
[2025-04-16] MEDS: carBAMazepine 200 MG TABLET PO ×2 (07:55→21:17)
--- NOTE | 2025-04-16 09:16 | P.PNPSI_ITS ---
Subjective Subjective Date of Service: 04/16/25 Reason For Visit: chau Subjective Notes: Conditional Voluntary Interim History: Pt slept through the night. She reports feeling better. She presents with less grandiose ideas and much less paranoid. She has been visible on the unit and social with peers. No behavioral concerns. She is taking medications as prescribed. Medication Compliance: Yes Review of Systems Review of Systems Denies any shortness of breath, chest pain, dizziness, lightheadedness, abdominal pain or discomfort, nausea vomiting or diarrhea Yes all other systems are reviewed and are negative Constitutional: Reports as per HPI and Reports no additional constitutional complaints Eyes: Reports as per HPI and Denies no additional eye complaints Denies system reviewed and no additional complaints, except as documented and Reports as per HPI Cardiovascular: Reports as per HPI, Reports no additional cardiovascular complaints, Denies acrocyanosis, Denies cool extremities, Denies chest pain, Denies leg edema, Denies lightheadedness, Denies palpitations and Denies dyspnea Respiratory: Reports as per HPI, Denies no additional respiratory complaints and Denies dyspnea Gastrointestinal: Reports as per HPI and Denies no additional gastrointestinal complaints Musculoskeletal: Reports no additional musculoskeletal complaints and Reports as per HPI Skin/Breast: Reports system reviewed and no additional complaints, except as docu Reports system reviewed and no additional complaints, except as documented and Reports as per HPI Psychiatric: Reports no additional psychiatric complaints and Reports as per HPI Endocrine: Reports no additional endocrine complaints, Reports as per HPI and Denies palpitations Hematologic/Lymphatic: Reports no additional hematologic/lymphatic complaints and Reports as per HPI Allergic/Immunologic: Reports no additional allergic/immunologic complaints and Reports as per HPI Mental Status Exam Mental Status Exam Narrative: Appearance: wearing own clothes, fair hygiene, in NAD Behavior: friendly Psychomotor: no agitation or retardation noted Speech: clear, normal rate/rhythm/volume, spontaneous TP: linear TC: no delusions or paranoia expressed Mood: good Affect: congruent, brighter, non labile. SI: none expressed HI: none expressed VH/AH: none expressed Insight/judgment: impaired due to psychiatric illness Memory/cog: alert, oriented x 3. Patient Appearance: Well Grooomed and Appropriate Patient Orientation: Person, Place, Time and Situation Level of Consciousness: Awake and Alert Patient Behavior: Appropriate and Cooperative Mood Description: Calm Affect Description: Calm and Appropriate Patient Cognition Impaired: No Ability to Follow Directions: Good Speech Pattern: Clear Memory Description: Episodic Impaired Diagnostics Vital Signs (24Hr): Vital Signs - 24 hr 04/15/25 20:00 04/15/25 20:32 04/15/25 20:32 Temperature 97.2 F Pulse Rate 62 62 Respiratory Rate 17 Blood Pressure 150/72 H 150/72 H 150/72 H Pulse Oximetry 95 Oxygen Delivery Method Room Air 04/16/25 07:51 Temperature 97.2 F Pulse Rate 58 Respiratory Rate 18 Blood Pressure 125/58 L Pulse Oximetry 97 Oxygen Delivery Method Room Air BMI result Body Mass Index 43.1 Labs 03/23/25 08:01 04/11/25 13:51 Labs: Laboratory Results - last 48 hr 04/14/25 04/14/25 04/14/25 11:26 16:13 19:53 POC Glucose 148 H 117 H 210 H Carbamazepine 04/15/25 04/15/25 04/15/25 06:03 07:33 08:08 POC Glucose 187 H 195 H Carbamazepine 8.1 04/15/25 04/15/25 04/15/25 11:29 16:22 20:05 POC Glucose 160 H 146 H 198 H Carbamazepine 04/16/25 06:35 POC Glucose 168 H Carbamazepine Medications Medications Current Medications Acetaminophen (Acetaminophen 325 Mg Tablet) 975 mg PO DAILY PRN PRN Reason: Pain Last Admin: 04/14/25 16:15 Dose: 975 mg Acetaminophen (Acetaminophen 325 Mg Tablet) 650 mg PO Q6H PRN PRN Reason: Headache/Pain, Scale 1-10 Last Admin: 04/06/25 04:22 Dose: 650 mg Al Hydroxide/Mg Hydroxide (Magnesium Hydrox/Alum Hydrox 30 Ml Oral.Susp) 30 ml PO Q6H PRN PRN Reason: Heartburn/Nausea Amiodarone HCl (Amiodarone Hcl 200 Mg Tablet) 200 mg PO DAILY [facility] Last Admin: 04/16/25 07:54 Dose: 200 mg Artificial Tears (Artificial Tears 15 Ml Drops) 1 drop EYE-BOTH TID@0600,1500,2100 PRN PRN Reason: dry eyes Last Admin: 04/16/25 06:34 Dose: 1 drop Carbamazepine (Carbamazepine 200 Mg Tablet) 200 mg PO BID [facility] Last Admin: 04/16/25 07:55 Dose: 200 mg Dextrose (Dextrose 50 % 25 Gm/50 Ml Syringe) 25 gm IVPUSH Q15M PRN; Protocol PRN Reason: per Hypoglycemia Standing Ord. Furosemide (Furosemide 40 Mg Tablet) 40 mg PO DAILY [facility]; Protocol Last Admin: 04/11/25 09:45 Dose: Not Given Glipizide (Glipizide 5 Mg Tablet) 5 mg PO DAILY [facility] Last Admin: 04/16/25 07:53 Dose: 5 mg Glucose (Glucose Gel 15 Gm Gel..Gram.) 15 gm PO Q15M PRN; Protocol PRN Reason: per Hypoglycemia Standing Ord. Insulin Human Lispro (Insulin Lispro 100 Unit/Ml 3 Ml Vial) 0 unit SUBCUT QIDACHS [facility]; Protocol Last Admin: 04/16/25 07:52 Dose: 2 unit Levothyroxine Sodium (Levothyroxine Sodium 150 Mcg Tablet) 150 mcg PO DAILY@0600 [facility] Last Admin: 04/16/25 06:23 Dose: 150 mcg Lurasidone HCl (Lurasidone Hcl 20 Mg Tablet) 60 mg PO DAILY@1700 [facility] Last Admin: 04/15/25 16:35 Dose: 60 mg Magnesium Hydroxide (Milk Of Magnesia 30 Ml Oral.Susp) 30 ml PO DAILY PRN PRN Reason: Constipation Metoprolol Tartrate (Metoprolol Tartrate 50 Mg Tablet) 50 mg PO BID [facility]; Protocol Last Admin: 04/16/25 08:00 Dose: Not Given Nicotine (Nicotine 21 Mg Patch.Td24) 21 mg TRANSDERMA DAILY PRN PRN Reason: smoking cessation Nicotine Polacrilex (Nicotine Polacrilex 2 Mg Gum) 4 mg BUCCAL Q2H PRN PRN Reason: Nicotine Cravings Olanzapine (Olanzapine 5 Mg Tablet) 5 mg PO TID PRN PRN Reason: agitation Last Admin: 04/06/25 01:46 Dose: 5 mg Quetiapine Fumarate (Quetiapine Fumarate 100 Mg Tablet) 100 mg PO BEDTIME [facility] Last Admin: 04/15/25 20:32 Dose: 100 mg Rivaroxaban (Rivaroxaban 20 Mg Tablet) 20 mg PO DAILY@1700 [facility] Last Admin: 04/15/25 16:35 Dose: 20 mg Sacubitril/Valsartan (Sacubitril/Valsartan 1 Tab Tablet) 1 tab PO BID [facility]; Protocol Last Admin: 04/16/25 07:54 Dose: 1 tab Spironolactone (Spironolactone 25 Mg Tablet) 25 mg PO DAILY [facility]; Protocol Last Admin: 04/16/25 07:53 Dose: 25 mg Trazodone HCl (Trazodone Hcl 100 Mg Tablet) 100 mg PO BEDTIME [facility] Last Admin: 04/15/25 20:32 Dose: 100 mg Vitamin D (Cholecalciferol (Vitamin D3) 25 Mcg Tablet) 25 mcg PO DAILY [facility] Last Admin: 04/16/25 07:53 Dose: 25 mcg Allergies Allergies Allergy/AdvReac Type Severity Reaction Status Date / Time divalproex sodium Allergy Mild diarrhea, Verified 03/23/25 07:44 [From Depakote] brain fog gluten Allergy Mild Unknown Verified 03/23/25 07:44 hazelnut Allergy Unknown Unknown Verified 01/15/25 10:01 shellfish derived Allergy Unknown Unknown Verified 01/15/25 10:01 sesame seeds Allergy Unknown Unknown Uncoded 01/15/25 10:01 Assessment & Plan Assessment & Plan (1) Bipolar 1 disorder: Status: Acute Code(s): F31.9 - Bipolar disorder, unspecified Plan 69-year-old female with past medical history of bipolar, PTSD, AFib, hypothyroidism, hypertension, LBBB, presented to [facility] via ambulance on 03/23/2025 for chau, paranoia, and auditory hallucinations. She notes that she had a verbal altercation immediately before presenting to the ED. She states that she received the call from her psychiatrist who inform her that she was returning a call regarding a voicemail she received from their home; the voicemail noted that the patient has not been sleeping and needed more medications. The patient inform her psychiatrist that she was unaware of the call which her may have made. She states that her is in charge of administering her medications and was giving her more of her medications than prescribed, and made her groggy. Therefore, she came the trazodone, without knowledge, and was not on the medication for 3 days; however, she slept adequately. Also, was upset after she recently told him she decided not to go to the appointment with the director of the home regarding her plan for cremation and that she change her MOLST from DNR to full code. She notes that her is controlling and does not want her to make decisions about her life. Therefore, she did some research on the Internet and confirmed that her has been a narcissist for the 30 years they been together. As the verbal altercation regarding her 's voicemail to her psychiatrist, which she was unaware of, escalated, the patient has called and asked her daughter to call 911, and she did. Patient was brought to the emergency department. She notes that she sleeps an average of 4-6 hours nightly. Sometimes, she would be awake, and not fall asleep at all, for 1-2 days; however, she does not recall the last time that happened. Per CARE team report, patient's reported that the patient had not slept for 3-4 days and stopped taking her psychotropic medications for about 3 weeks; there is a significant decline in her functioning. Patient denies SI, HI, AVH. She denies drugs or alcohol use. U tox was negative. BAL is 13. Formulation/Clinical reasoning: Bipolar 1 disorder with manic episode: Likely due to not taking her medications for about 3 weeks, leading to significant decline, including chau, paranoia, and functional impairment. Will continue current treatment regimen for now and will make adjustment as needed. She currently has UTI which may also contribute to her mental declines; she is currently treated with cefuroxime which is resistant to the current causative bacteria; will discontinue so fluoxetine and start nitrofurantoin for UTI. Hospital course: 03/28: Patient notes that she is in a good mood today. She had been taking her medications as prescribed. Her daughter is visiting and present. She notes that she slept last night. She denies SI/HI/AH/VH. Her daughter told social insurance adviser that she was very concerned about the patient who went to the bank in her nightgown and transferred 4000 dollars from her 's account into hers. She was subsequently brought home by the police from her friend's home. Continue current treatment regimen. 03/29 remains plesant but paranoid; will continue to see if restarting home regimen will be enough to bring her back to baseline; if not, will either increase doses or augment -may do better on Jamie 03/30: Continue current regimen and plans. 03/31: Continue current regimen and plans. 04/01: some reduction in paranoia; pt feeling differently about her , talking w/ him on the phone; she asked commercial underwriter change his status, saying she now wants him to come and visit her and wants to receive phone calls from from him. -transfer to [facility]; pt agrees 04/02 continue tx. will check EKG given qtc prolonging meds and hx of qtc prolongation. 04/03 continue tx. QTc 503 (506 on admit) cardiology consult for guidance in proceeding with her care. 04/04 decrease trazodone to 100mg po qhs. may add ativan at night time for sleep as needed. Will contact OP provider for collateral information. Pt used to be on risperidone, unclear why it was d/cr. may need mood stabilizer, did become more confused with depakote. renal function decreased in 77, but may consider lithium or carbamazepine. 04/05 pt refusing medical medications stating God does not want her to do so. Questioning her dx of DM and whether is true that BS have been elevated in the past month including worsening of A1C from 7% to 7.9% in last few months. mu-ism and paranoid ideas towards and staff here. This commercial underwriter discussed with pt adding mood stabilizer, however, options between lithium and carbamazepine, given that pt had depakote in past but became more confused on it. If decide to go with lithium- keeping in mind pt also on lasix and losartan. or Carbamazepine lowers level of amiodarone and eliquis (and seroquel). seen by hospitalist today due to bilat edema started on lasix, added daily weights given HF. attempted to call OP provider but unable to leave message through [facility]. pt used to be on risperidone- unclear if d/cr due to EPS side effects. 04/06: refusing medical meds yesterday, took them today. appears to be doubting her delusional system yet remains compelled by it. encouraged to continue taking both medical meds as well as seroquel. slept 5 hours. 04/07: seems to be doing better, taking DM medications and not preoccupied with delusional material. continue current mgmt. 04/08 continue tx. consider adding carbamazepine as mood stabilizer, continue seroquel 04/09 carbamazepine 200mg po BID 04/10 lower seroquel in morning to 200mg po daily. 04/11 continue tx. 04/13 lower metoprolol to 50mg bid watch pulse/bp 04/15- will lower seroquel to 100mg po qhs. start latuda 60mg po with dinner, note that she is also on carbamazepine which induces metabolism of latuda, pt may need higher doses of this medication. 04/16 continue tx. d/c 04/17 Reason for continued inpatient stay Substantial Risk for: stable for discharge Time Spent With Patient Time: Total time managing care of this patient today ____ minutes.
[2025-04-16] MEDS: Metoprolol Tartrate 50 MG TABLET PO ×2 (09:48→21:17)
--- NOTE | 2025-04-16 09:49 | PC.NURSE ---
Marry Brown NP updatted that patient's heart trate was 58 bpm so Metoprolol was held. Marry Brown NP said to go ahead and give the Metoprolol. Patient updated and Metoprolol was given.
--- NOTE | 2025-04-16 10:34 | PM.EVENT ---
Event Note Date of Service: 04/16/25 Event Note: Patient has had some episodes of heart rate less than 60, 58 this morning. Her metoprolol was decreased to 50 mg b.i.d. over the weekend. Continue on this dosage, also Lasix resumed due to 5 lb weight gain. Patient will need Cardiology follow up upon discharge Time Spent With Patient Time: Total time managing care of this patient today ____ minutes.
[2025-04-16 11:24] LABS: Glucose, Whole Blood 150 mg/dL (60-115)
[2025-04-16 16:22] LABS: Glucose, Whole Blood 168 mg/dL (60-115)
[2025-04-16] MEDS: Lurasidone HCl 20 MG TABLET 60 MG PO (16:34)
[2025-04-16] MEDS: Rivaroxaban 20 MG TABLET PO (16:34)
[2025-04-16 19:49] LABS: Glucose, Whole Blood 186 mg/dL (60-115)
[2025-04-16 20:00] VITALS: BP 158/64; PULSE 62; RESP 18; TEMP 36.3; O2SAT 98
[2025-04-16] MEDS: traZODone HCL 100 MG TABLET PO (21:17)
[2025-04-16] MEDS: QUEtiapine Fumarate 100 MG TABLET PO (21:17)
[2025-04-17 06:00] VITALS: BMI 43.0
[2025-04-17] MEDS: Levothyroxine Sodium 150 MCG TABLET PO (06:09)
[2025-04-17 06:29] LABS: Glucose, Whole Blood 193 mg/dL (60-115)
[2025-04-17 08:00] VITALS: BP 120/60; PULSE 78; TEMP 36.6
[2025-04-17] MEDS: Insulin Lispro 100 UNIT/ML 3 ML VIAL SUBCUT ×2 (08:16→11:33)
[2025-04-17] MEDS: Spironolactone 25 MG TABLET PO (08:17)
[2025-04-17] MEDS: Sacubitril/Valsartan 24/26 1 TAB TABLET PO (08:17)
[2025-04-17] MEDS: carBAMazepine 200 MG TABLET PO (08:17)
[2025-04-17] MEDS: glipiZIDE 5 MG TABLET PO (08:18)
[2025-04-17] MEDS: Furosemide 40 MG TABLET PO (08:18)
[2025-04-17] MEDS: Metoprolol Tartrate 50 MG TABLET PO (08:18)
[2025-04-17] MEDS: Cholecalciferol (Vitamin D3) 25 MCG TABLET PO (08:18)
[2025-04-17] MEDS: Amiodarone HCL 200 MG TABLET PO (09:06)
--- NOTE | 2025-04-17 10:28 | P.DS_ITS ---
DS: Providers Provider Date of Service: 04/17/25 Date of admission: 03/26/25 13:19 Date of discharge: 04/17/25 Primary care physician: Adithya Gutierrez MD Consults: 04/03/25 21:10 Consult to Cardiology Routine Consulting Provider: [facility] Reason for consultation: Abnormal EKG. QTc prolongation 503 04/05/25 14:28 Consult to Hospitalist Routine Comment: Consulting Provider: [facility] Hospital[facility] Reason For Exam: bilat edema/chf Discharging clinician: Marry Brown DS: Diagnosis Discharge Diagnosis (1) Bipolar 1 disorder: Status: Acute DS: Medications Discharge Medications Home Medications: Home Medications ?Medication ?Instructions ?Recorded ?Confirmed ascorbic acid (vitamin C) 250 mg 250 mg PO DAILY 03/2403/24/25 tablet (Vitamin C) artificial tears solution eye drops 1 drp ophthalmic ( eye) TID 03/26/25 03/26/25 Previous Rx's ?Medication ?Instructions ?Recorded amiodarone 200 mg tablet 200 mg PO DAILY #30 tabs carbamazepine 200 mg tablet 200 mg PO BID #60 tabs cholecalciferol (vitamin D3) 25 25 mcg PO DAILY #30 ta bs 04/16/25 mcg (1,000 unit) tablet dextrose 40 % oral gel (Glutose-15) 15 g PO Q15M PRN P er Hypoglycemia 04/16/25 Standing Ord. #112.5 grams furosemide 40 mg tablet 40 mg PO DAILY #30 tabs 03/31 05/24 glipizide 5 mg tablet 5 mg PO DAILY #30 tabs 04/16 insulin lispro 100 unit/mL See Protocol subcut QIDACHS #10 mL 04/16/25 subcutaneous solution (Admelog U-100 Insulin lispro) levothyroxine 150 mcg tablet 150 mcg PO DAILY@0600 #30 tabs 04/16/25 lurasidone 60 mg tablet 60 mg PO DAILY #30 tabs 03/31 05/24 metoprolol tartrate 50 mg tablet 50 mg PO BID #60 tabs 04/16/25 quetiapine 100 mg tablet 100 mg PO BEDTIME #30 tabs 0 04/16/25 rivaroxaban 20 mg tablet (Xarelto) 20 mg PO DAILY@1700 #30 tabs 04/16/25 sacubitril 24 mg-valsartan 26 mg 1 tab PO BID #60 tabs 04/16/25 tablet (Entresto) spironolactone 25 mg tablet 25 mg PO DAILY #30 tabs trazodone 100 mg tablet 100 mg PO BEDTIME #30 tabs 0 04/16/25 Mental Status Exam Mental Status Exam Narrative: Appearance: wearing own clothes, fair hygiene, in NAD Behavior: friendly Psychomotor: no agitation or retardation noted Speech: clear, normal rate/rhythm/volume, spontaneous TP: linear TC: no delusions or paranoia expressed Mood: good Affect: congruent, brighter, non labile. SI: none expressed HI: none expressed VH/AH: none expressed Insight/judgment: impaired due to psychiatric illness Memory/cog: alert, oriented x 3. Data Data Completed and Pending Completed studies during hospitalization [Text1]: 04/10/25 04/10/25 04/10/25 11:51 16:35 19:36 Sodium Potassium Chloride Carbon Dioxide Anion Gap BUN Creatinine Estim Creat Clear Calc Estimated GFR POC Glucose 158 H 188 H 152 H Random Glucose Calcium Total Bilirubin AST ALT Alkaline Phosphatase Total Protein Albumin Carbamazepine 04/11/25 04/11/25 04/11/25 06:37 11:18 13:51 Sodium 137 Potassium 4.5 Chloride 106 Carbon Dioxide 20 L Anion Gap 16 BUN 16 Creatinine 0.84 Estim Creat Clear Calc 76.8 Estimated GFR > 60 POC Glucose 190 H 186 H Random Glucose 183 H Calcium 8.7 D Total Bilirubin 0.2 AST 29 ALT 19 Alkaline Phosphatase 69 Total Protein 6.8 Albumin 3.5 Carbamazepine 04/11/25 04/11/25 04/12/25 16:24 20:58 06:28 Sodium Potassium Chloride Carbon Dioxide Anion Gap BUN Creatinine Estim Creat Clear Calc Estimated GFR POC Glucose 156 H 165 H 169 H Random Glucose Calcium Total Bilirubin AST ALT Alkaline Phosphatase Total Protein Albumin Carbamazepine 04/12/25 04/12/25 04/12/25 08:20 11:21 16:12 Sodium Potassium Chloride Carbon Dioxide Anion Gap BUN Creatinine Estim Creat Clear Calc Estimated GFR POC Glucose 180 H 187 H 122 H Random Glucose Calcium Total Bilirubin AST ALT Alkaline Phosphatase Total Protein Albumin Carbamazepine 04/12/25 04/13/25 04/13/25 19:51 06:29 11:24 Sodium Potassium Chloride Carbon Dioxide Anion Gap BUN Creatinine Estim Creat Clear Calc Estimated GFR POC Glucose 175 H 169 H 158 H Random Glucose Calcium Total Bilirubin AST ALT Alkaline Phosphatase Total Protein Albumin Carbamazepine 04/13/25 04/13/25 04/14/25 16:19 20:04 06:30 Sodium Potassium Chloride Carbon Dioxide Anion Gap BUN Creatinine Estim Creat Clear Calc Estimated GFR POC Glucose 122 H 173 H 156 H Random Glucose Calcium Total Bilirubin AST ALT Alkaline Phosphatase Total Protein Albumin Carbamazepine 04/14/25 04/14/25 04/14/25 11:26 16:13 19:53 Sodium Potassium Chloride Carbon Dioxide Anion Gap BUN Creatinine Estim Creat Clear Calc Estimated GFR POC Glucose 148 H 117 H 210 H Random Glucose Calcium Total Bilirubin AST ALT Alkaline Phosphatase Total Protein Albumin Carbamazepine 04/15/25 04/15/25 04/15/25 06:03 07:33 08:08 Sodium Potassium Chloride Carbon Dioxide Anion Gap BUN Creatinine Estim Creat Clear Calc Estimated GFR POC Glucose 187 H 195 H Random Glucose Calcium Total Bilirubin AST ALT Alkaline Phosphatase Total Protein Albumin Carbamazepine 8.1 04/15/25 04/15/25 04/15/25 11:29 16:22 20:05 Sodium Potassium Chloride Carbon Dioxide Anion Gap BUN Creatinine Estim Creat Clear Calc Estimated GFR POC Glucose 160 H 146 H 198 H Random Glucose Calcium Total Bilirubin AST ALT Alkaline Phosphatase Total Protein Albumin Carbamazepine 04/16/25 04/16/25 04/16/25 06:35 11:19 16:17 Sodium Potassium Chloride Carbon Dioxide Anion Gap BUN Creatinine Estim Creat Clear Calc Estimated GFR POC Glucose 168 H 150 H 168 H Random Glucose Calcium Total Bilirubin AST ALT Alkaline Phosphatase Total Protein Albumin Carbamazepine 04/16/25 04/17/25 19:43 06:23 Sodium Potassium Chloride Carbon Dioxide Anion Gap BUN Creatinine Estim Creat Clear Calc Estimated GFR POC Glucose 186 H 193 H Random Glucose Calcium Total Bilirubin AST ALT Alkaline Phosphatase Total Protein Albumin Carbamazepine 03/23/25 Unknown Urine clean catch - Clean Catch Midstream Urine Culture - Final Enterococcus faecalis DS: Summary Hospital Course Hospital Course: 69-year-old female with past medical history of bipolar, PTSD, AFib, hypothyroidism, hypertension, LBBB, presented to [facility] ED via ambulance on 03/23/2025 for chau, paranoia, and auditory hallucinations. She notes that she had a verbal altercation immediately before presenting to the ED. She states that she received the call from her psychiatrist who inform her that she was returning a call regarding a voicemail she received from their home; the voicemail noted that the patient has not been sleeping and needed more medications. The patient inform her psychiatrist that she was unaware of the call which her may have made. She states that her is in charge of administering her medications and was giving her more of her medications than prescribed, and made her groggy. Therefore, she came the trazodone, without knowledge, and was not on the medication for 3 days; however, she slept adequately. Also, was upset after she recently told him she decided not to go to the appointment with the director of the home regarding her plan for cremation and that she change her MOLST from DNR to full code. She notes that her is controlling and does not want her to make decisions about her life. Therefore, she did some research on the Internet and confirmed that her has been a narcissist for the 30 years they been together. As the verbal altercation regarding her 's voicemail to her psychiatrist, which she was unaware of, escalated, the patient has called and asked her daughter to call 911, and she did. Patient was brought to the emergency department. She notes that she sleeps an average of 4-6 hours nightly. Sometimes, she would be awake, and not fall asleep at all, for 1-2 days; h owever, she does not recall the last time that happened. Per CARE team report, patient's reported that the patient had not slept for 3-4 days and stopped taking her psychotropic medications for about 3 weeks; there is a significant decline in her functioning. Patient denies SI, HI, AVH. She denies drugs or alcohol use. U tox was negative. BAL is 13. Past Psychiatric History: Reports multiple inpatient admission, including [facility] behavioral health in 2020 and 2022 OP: Psychiatrist, therapist: AGUSTÍN Suicide attempt: Multiple SIB: Multiple Past medication trials: lithium, depakote, olanzapine Medical Evaluation Reviewed: Yes HOSPITAL COURSE On the unit, Mrs. Kwok was admitted on a CV and 15 minutes checks for safety. Pt presented with paranoid and judaism delusions. She was suspicious of staff and also thinking medications given where with intent to poisoned her. She reported receiving messages from God and him instructing her not to take insulin because she had enough already. She started to question validity of medical conditions that she has been in treatment for several years. She denied SI/HI. She presented as labile and somewhat irritable at times. In terms of medications, pt has been on depakote in the past but developed increased confusion with the medication as well as tremors. She had also been on risperidone but seems it ws discontinue due to EPS. She has been on seroquel 200mg po qhs and trazodone for sleep. Initially seroquel was increased to 200mg po BID. Pt continues to present with judaism delusions and labile mood. We discussed adding a mood stabililzer. However, options available are limited due to comorbid medical conditions. We decided not to do lithium due to decrease renal function, interaction with lasix. She was started on carbamazepine 200mg po BID, which do interact with some of the other medications she is on. She reported feeling very tired and sedated with seroquel. We decided to lower it and trial latuda- given that she is prone to movement disorder cause by antipsychotics. However, keeping in mind that combination with carbamazepine, she may need higher doses of latuda as carbamazepine induces metabolism of this medication. She was kept on 60mg po daily with dinner. Advice to continue working with OP provider to adjust dose of latuda as necessary. Trazodone was decreased from 300mg po qhs to 100mg po qhs. Keep in mind that pt's Qtc tends to be prolonged and higher doses of trazodone may destabilize mood in setting of chau. She was sleeping well with lower dose of trazodone 100mg po qhs also as s ymptoms of chau decreased. She is still on seroquel 100mg po qhs, which can be taper off further if needed. Pt was seen by cardiology while on the unit for Qtc prolongation- at this point less than 500ms after correction given widen QRS complex. Pt scheduled to follow up with cardiology for routine care of cardiomyopathy. Status at Discharge Cognitive/behavioral status at discharge: Pt with brighter, non labile affect. No SI/HI. Much less judaism and paranoid delusions. Sleeping and eating well. Functional status at discharge: uses cane/walker Overall status at discharge: patient is back to baseline Time Spent with Patient Time attestation: Total time managing care of this patient today __45__ minutes. Time spent: Greater than 30 minutes Discharge Plan Discharge Anticipated Discharge Date/Time: 04/17/25 10:20 Patient Disposition: Home, Self-Care Discharge Diagnosis: Bipolar type 1 Disorder Referrals: Raiza Robles [facility] [Other] - 04/22/25 2:00 pm Referral Note: Your next appointment with your therapist Raiza is scheduled for 04/22/25 at 2pm. The appointment is telehealth. Martha Steen [facility]-Psychiatry [Other] - 04/18/25 12:40 pm Referral Note: Your next appointment with your psychiatry provider Martha is scheduled for 04/18/25 at 12:40pm. This appointment is telehealth. Dr Alvarado [facility]-Cardiology [Other] - 05/02/25 1:30 pm Referral Note: Your next cardiology follow up appointment is with Sonali Dumont cardiology nurse practitioner on 05/02/25 at 1:30pm in office. Adithya Gutierrez MD [Primary Care Provider] - 1 Week Referral Note: Request for PCP follow appointment has been made. Will contact you with appointment once provided. Discharge Medications: New Xarelto 20 mg Tablet 20 mg PO DAILY@1700 Qty: 30 0RF amiodarone 200 mg Tablet 200 mg PO DAILY Qty: 30 0RF metoprolol tartrate 50 mg Tablet 50 mg PO BID Qty: 60 0RF Protocol: Hold for SBP/HR < HOLD for SBP < : 90 HOLD for HR < : 60 Entresto 24-26 mg Tablet 1 tab PO BID Qty: 60 0RF Protocol: Hold for SBP< HOLD for SBP < : 90 spironolactone 25 mg Tablet 25 mg PO DAILY Qty: 30 0RF Protocol: Hold for SBP< HOLD for SBP < : 90 carbamazepine 200 mg Tablet 200 mg PO BID Qty: 60 0RF lurasidone 60 mg tablet 60 mg PO DAILY Qty: 30 0RF Rx Instructions: must administer with food (at least 350 calories) furosemide 40 mg Tablet 40 mg PO DAILY Qty: 30 0RF Protocol: Hold for SBP< HOLD for SBP < : 90 dextrose [Glutose-15] 40 % Gel 15 g PO Q15M PRN (Reason: Per Hypoglycemia Standing Ord.) Qty: 112.5 0RF Protocol: Glucose Gel Hypoglycemia Standing Order Protocol Text: For patients able to take PO (patient cooperative and able to swallow). Give Glucose Gel 15 gm PO for Blood Glucose (BG) < 70. Repeat BG every 15 min until BG > 70 x 3, if BG still < 70 and/or patient symptomatic repeat glucose gel or rapid acting carbohydrate. Notify MD if BG does not improve with treatment. trazodone 100 mg Tablet 100 mg PO BEDTIME Qty: 30 0RF insulin lispro [Admelog U-100 Insulin lispro] 100 unit/mL Solution See Protocol subcut QIDACHS Qty: 10 0RF Protocol: Insulin Correction Scale Less than or equal to 110 ---- Give (units): 0 111 to 150 Give (units): 0 151 to 200 Give (units): 2 201 to 250 Give (units): 4 251 to 300 Give (units): 6 301 to 350 Give (units): 8 Greater than 350 Give (units): 10 Call MD if Blood Glucose > : 350 glipizide 5 mg Tablet 5 mg PO DAILY Qty: 30 0RF levothyroxine 150 mcg Tablet 150 mcg PO DAILY@0600 Qty: 30 0RF cholecalciferol (vitamin D3) 25 mcg (1,000 unit) Tablet 25 mcg PO DAILY Qty: 30 0RF (DME) syringe with needle 1/2 mL 28 x 1/2 syringe See Rx Instructions .Route Qty: 500 0RF Rx Instructions: As directed Continued ascorbic acid (vitamin C) [Vitamin C] 250 mg Tablet 250 mg PO DAILY artificial tears solution Drops 1 drp ophthalmic (eye) TID Changed quetiapine 100 mg tablet 100 mg PO BEDTIME Qty: 30 0RF Discontinued metoprolol tartrate 75 mg tablet 75 mg PO BID Qty: 180 3RF furosemide 40 mg tablet 40 mg PO DAILY Qty: 90 3RF Protocol: Hold for SBP< HOLD for SBP < : 90 spironolactone 25 mg tablet 25 mg PO DAILY Qty: 90 3RF Protocol: Hold for SBP< HOLD for SBP < : 90 nystatin 100,000 unit/gram powder 1 appl topical DAILY 30 Days Qty: 60 2RF levothyroxine 150 mcg tablet 150 mcg PO DAILY@0600 Qty: 90 0RF cholecalciferol (vitamin D3) 25 mcg (1,000 unit) capsule 25 mcg PO DAILY 90 Days Qty: 90 0RF amiodarone 200 mg tablet 200 mg PO DAILY Qty: 90 3RF Entresto 24-26 mg tablet 1 tab PO BID 90 Days Qty: 180 3RF Protocol: Hold for SBP< HOLD for SBP < : 90 acetaminophen 500 mg Tablet 1,000 mg PO DAILY PRN (Reason: Pain) Xarelto 20 mg tablet 20 mg PO DAILY@1700 quetiapine 50 mg tablet 50 mg PO DAILY PRN (Reason: agitation/anxiety) glipizide 2.5 mg tablet 2.5 mg PO DAILY Qty: 90 1RF trazodone 150 mg tablet 225 mg PO BEDTIME quetiapine 100 mg tablet 100 mg PO BEDTIME Discharge Orders: Discharge Order (Routine); Ordered 04/17/25 Ordered By: Marry Brown Diet: Diabetic diet Activity on Discharge: As tolerated Stand Alone Forms: Patient Portal Discharge page Print Language: German Care Plan Goals: 1. maintain mood 2. less judaism and paranoid delusions 3. No aggression towards self or others. Health Concerns: Follow with cardiology, PCP for routine care. Plan of Treatment: 1. Take medications as prescribed. 2. Go to nearest ED or call 911 in event of emergency Assessment: pt with brighter, non labile affect. No SI/HI. No VH/AH. Less delusions. Sleeping and eating well.
[2025-04-17 11:27] LABS: Glucose, Whole Blood 161 mg/dL (60-115)
== END 2025-04-17 14:40 | disposition home or self-care (01) | DRG 885 ==
LOC: HO.ED 03-24 06:44 → HO.PM5 03-26 13:50 → HO.PGERI 04-01 19:03
PROVIDERS: Emergency Medicine; Admitting Provider Psychiatry & Neurology Psychiatry; Emergency Provider Emergency Medicine; PCP Internal Medicine; Visit Provider Social Worker
DX: F31.9 Bipolar disorder, unspecified (principal); I42.9 Cardiomyopathy, unspecified; I50.42 Chronic combined systolic (congestive) and diastolic (congestive) heart failure; I11.0 Hypertensive heart disease with heart failure; E03.9 Hypothyroidism, unspecified; E11.9 Type 2 diabetes mellitus without complications; Y90.0 Blood alcohol level of less than 20 mg/100 ml; F43.10 Post-traumatic stress disorder, unspecified; R94.31 Abnormal electrocardiogram [ECG] [EKG]; I48.91 Unspecified atrial fibrillation; Z87.891 Personal history of nicotine dependence; Z91.148 Patient's other noncompliance with medication regimen for other reason; Z79.4 Long term (current) use of insulin; Z79.01 Long term (current) use of anticoagulants; Z79.890 Hormone replacement therapy; Z79.899 Other long term (current) drug therapy
CPT/HCPCS: 36415; 80053; 80061; 80156; 80307; 81001; 82947; 83036; 84439; 84443; 85025; 87086; 87088; 87186; 93005; 99285; S9485

== ENCOUNTER → 2025-03-26 09:00 | Outpatient (BNV) | payer MEDICARE, BC, SELFPAY | PROVIDERS: Emergency Provider Emergency Medicine; PCP Internal Medicine; Visit Provider Internal Medicine Cardiovascular Disease | DX: I44.7 Left bundle-branch block, unspecified (principal) | CPT/HCPCS: 93010 ==

== ENCOUNTER → 2025-03-26 09:07 | Outpatient (BNVA) | payer MEDICARE, BC, SELFPAY | PROVIDERS: PCP Internal Medicine ==

== ENCOUNTER 2025-03-26 13:19 | Outpatient (BNV) | payer MEDICARE, BC, SELFPAY | END 2025-04-03 13:11 | PROVIDERS: Admitting Provider Psychiatry & Neurology Psychiatry; Emergency Provider Emergency Medicine; PCP Internal Medicine; Visit Provider Internal Medicine | DX: I44.0 Atrioventricular block, first degree (principal); I45.9 Conduction disorder, unspecified | CPT/HCPCS: 93010 ==

== ENCOUNTER → 2025-03-26 13:19 | Outpatient (BNV) | payer MEDICARE, BC, SELFPAY | PROVIDERS: Admitting Provider Psychiatry & Neurology Psychiatry; Emergency Provider Emergency Medicine; PCP Internal Medicine; Visit Provider Nurse Practitioner Family | DX: F31.13 Bipolar disorder, current episode manic without psychotic features, severe (principal) | CPT/HCPCS: 90792; 99232 ==

== ENCOUNTER → 2025-03-26 13:19 | Outpatient (BNV) | payer MEDICARE, BC, SELFPAY | PROVIDERS: Admitting Provider Psychiatry & Neurology Psychiatry; Emergency Provider Emergency Medicine; PCP Internal Medicine; Visit Provider Nurse Practitioner Family | DX: I50.42 Chronic combined systolic (congestive) and diastolic (congestive) heart failure (principal) | CPT/HCPCS: 99222; 99499 ==

== ENCOUNTER → 2025-03-26 13:19 | Outpatient (BNV) | payer MEDICARE, BC, SELFPAY | PROVIDERS: Admitting Provider Psychiatry & Neurology Psychiatry; Emergency Provider Emergency Medicine; PCP Internal Medicine; Visit Provider Internal Medicine | DX: I50.42 Chronic combined systolic (congestive) and diastolic (congestive) heart failure (principal); I48.0 Paroxysmal atrial fibrillation; I42.9 Cardiomyopathy, unspecified; R94.31 Abnormal electrocardiogram [ECG] [EKG] | CPT/HCPCS: 99223 ==

== ENCOUNTER 2025-05-08 14:54 | Outpatient (REF) | payer MEDICARE, BC, SELFPAY ==
[2025-05-08 15:15] LABS: MANUAL DIFF FLAG NO
--- OUTSIDE RECORDS SUMMARY | 2025-05-08 15:22 | XMS_ITS ---
Author Name [facility] Organization Unknown History of Medication Use Medication Directions Dispensed Refills Start Date End Date Stat LORazepam (ATIVAN) 1 MG tablet Take 1 tablet (1 mg total) by mouth once. Take 1 tablet 1 hour prior to scheduled MRI 03/15/2025 active amiODARONE (PACERONE) 200 MG tablet Take 1 tablet (200 mg total) by mouth daily. 02/25/2025 active QUEtiapine (SEROquel XR) 200 MG 24 hr tablet Take 1 tablet (200 mg total) by mouth nightly. 02/13/2025 active traZODone (DESYREL) 150 MG tablet Take 1.5 tablets (225 mg total) by mouth nightly. 02/07/2025 active metoPROLOL TARTRATE (LOPRESSOR) 75 MG tablet 1 tablet (75 mg total) by Mouth/Oral Cavity route every 12 hours. 01/29/2025 active glipiZIDE (GLUCOTROL) 2.5 mg tablet Take 1 tablet (2.5 mg total) by mouth every morning before breakfast. 01/01/2025 active QUEtiapine (SEROquel XR) 50 MG Tablet SR 24 hr Take by mouth. 01/01/2025 active sacubitril-valsartan (Entresto) 24-26 mg per tablet Take 1 tablet by mouth 2 (two) times a day. 01/01/2025 active SPIRONOLACTONE PO Take 25 mg by mouth daily. 01/01/2025 active Xarelto 20 MG tablet Take 1 tablet (20 mg total) by mouth every evening. 01/01/2025 active levothyroxine (SYNTHROID, LEVOTHROID) 150 MCG tablet Take 1 tablet (150 mcg total) by mouth daily on an empty stomach. 12/27/2024 active furosemide (LASIX) 40 MG tablet Take 1 tablet (40 mg total) by mouth daily. 12/20/2024 active Allergies Allergen Reaction Severity Comment Documented Date Source Statu s VALPROIC ACID DIARRHEA 02/15/2025 [facility] active SHRIMP RASH/DERMATITIS 07/02/2023 [facility] activ e ASPIRIN RASH/DERMATITIS [facility] SESAME SEEDS NAUSEA ONLY [facility] SHELLFISH ALLERGY UNKNOWN/PATIENT AND FAMILY UNABLE TO DEFINE [facility] Problems Problem Status Onset Date Problem Type Date of Resolution Source Fall active 2023-07-02 ProblemAct [facility] Bipolar disorder active 2023-07-02 ProblemAct [facility] Urinary incontinence active 2025-02-15 ProblemAct [facility] Ischemic cardiomyopathy active 2025-02-27 ProblemAct [facility] Hypothyroidism active 2023-07-02 ProblemAct [facility] Left bundle branch block active 2023-07-02 ProblemAct [facility] Anxiety active EncounterDiagnosisAct [facility] Chronic atrial fibrillation active 2023-07-02 ProblemAct [facility] Type 2 diabetes mellitus active 2023-07-02 ProblemAct [facility] Incoordination active 2023-07-02 ProblemAct [facility] Severe obesity active 2025-02-15 ProblemAct [facility] Essential hypertension active 2023-07-02 ProblemAct [facility] Encounters Encounter Type Encounter Reason Primary Diagnosis Location Date Ambulatory [facility] 02/27/2025 Ambulatory Ischemic cardiomyopathy Ischemic cardiomyopathy [facility] 02/27/2025 Care Team Organization Name Specialty Phone Email Start Date End Da te [facility] 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
--- OUTSIDE RECORDS SUMMARY | 2025-05-08 15:22 | XMS_ITS | Clinical Summary ---
Author Organization [facility] Address [address] [place] [address] Care Team Providers Care Gta Name Role Phone Adithya Gutierrez MD Primary Care Provider [phone] Garrett Veliz MD Unavailable [phone] Kevin Mendez Unavailable Allergies Active Allergy Reactions Criticality Noted Date Comments Aspirin GI Intolerance/Nausea/Vomiting,Rash/De rmatitis Medium 07/02/2023 Gluten Nausea Only Medium 07/02/2023 Chantell Nut Nausea Only Medium 07/02/2023 Sesame Seeds Nausea Only Medium 07/02/2023 Shellfish Allergy Unknown/Patient and Family Unable to Define Medium 02/15/2025 Shrimp Rash/Dermatitis Medium 07/02/2023 Valproic Acid Diarrhea Low 02/15/2025 Medications glipiZIDE (GLUCOTROL) 2.5 mg tablet Take 1 tablet (2.5 mg total) by mouth every morning before breakfast. 5 Active QUEtiapine (SEROquel XR) 50 MG Tablet SR 24 hr Take by mouth. 5 Active sacubitril-vals jesús (Entresto) 24-26 mg per tablet Take 1 tablet by mouth 2 (two) times a day. 5 Active SPIRONOLACTONE PO Take 25 mg by mouth daily. 5 Active levothyroxine (SYNTHROID, LEVOTHROID) 150 MCG tablet Take 1 tablet (150 mcg total) by mouth daily on an empty stomach. 5 Active amiODARONE (PACERONE) 200 MG tablet Take 1 tablet (200 mg total) by mouth daily. Active metoPROLOL TARTRATE (LOPRESSOR) 75 MG tablet 1 tablet (75 mg total) by Mouth/Oral Cavity route every 12 hours. Active furosemide (LASIX) 40 MG tablet Take 1 tablet (40 mg total) by mouth daily. Active Xarelto 20 MG tablet Take 1 tablet (20 mg total) by mouth every evening. Active traZODone (DESYREL) 150 MG tablet Take 1.5 tablets (225 mg total) by mouth nightly. Active QUEtiapine (SEROquel XR) 200 MG 24 hr tablet Take 1 tablet (200 mg total) by mouth nightly. Active LORazepam (ATIVAN) 1 MG tabletIndicatio ns:Anxiety Take 1 tablet (1 mg total) by mouth once. Take 1 tablet 1 hour prior to scheduled MRI 1 tablet Active Active Problems Problem Noted Date Diagnosed Date Ischemic cardiomyopathy 02/27/2025 Severe obesity 02/15/2025 Urinary incontinence 02/15/2025 Type 2 diabetes mellitus 07/02/2023 Bipolar disorder 07/02/2023 Chronic atrial fibrillation 07/02/2023 Essential hypertension 07/02/2023 Fall 07/02/2023 Hypothyroidism 07/02/2023 Left bundle branch block 07/02/2023 Incoordination 07/02/2023 Encounters Date Type Department Care Team Description 05/07/2025 Telephone [facility] Cardiothoracic Surgery [address] [phone] Garrett Veliz MD Appointment 03/14/2025 Telephone [facility] Cardiothoracic Surgery [address] [phone] Garrett Veliz MD 03/14/2025 Orders Only [facility] Cardiothoracic Surgery [address] [phone] Garrett Veliz MD 03/14/2025 Orders Only [facility] Cardiothoracic Surgery [address] [place] [address], [place] [address] Garrett Veliz MD 02/27/2025 1:00 PM EDT Consult [facility] Cardiooracic [address] [place] [address], [place] [address] Garrett Veliz MD Ischemic cardiomyopathy (Primary Dx) 02/27/2025 12:25 PM EDT Ancillary Procedure [facility] [address] [place] [address] Provider, File Room 02/27/2025 Travel 02/25/2025 Telephone [facility] Cardiooracic [address] [place] [address], [place] [address] Garrett Veliz MD Request for Imaging 02/15/2025 Scanned Document [facility] Cardiooracic [address] [place] [address], [place] [id number] Provider, Generic 02/15/2025 Transcribe Orders [facility] Cardiooracic [address] [place] [address], [place] [phone] Sonali Dumont, KEVIN Atherosclerosis of [place] coronary artery of [place] heart without angina pectoris (Primary Dx); Cardiomyopathy, unspecified type (HCC) 02/15/2025 Abstract [facility] Cardiothoracic Surgery [address] [place] [address], [place] [address] Garrett Veliz MD from Last 3 Months Social History Tobacco Use Types Packs/Day Years Used Date Smoking Tobacco: Never Assessed Comments Unknown Sex and Gender Information Value Date Recorded Sex Assigned at Female 02/15/2025 2:09 PM EDT Legal Sex Female 6:22 PM EST Gender Identity Female 02/15/2025 2:09 PM EDT Sexual Orientation Heterosexual (straight) 02/15 2:20 PM EDT Last Filed Vital Signs Vital Sign Reading Time Taken Comments Blood Pressure 122/68 02/27/2025 12:29 PM EDT Pulse 56 02/27/2025 12:29 PM EDT Temperature 37 C (98.6 F) 02/27/2025 12:29 PM EDT Respiratory Rate - - Oxygen Saturation 97% 02/27/2025 12:29 PM EDT Inhaled Oxygen Concentration - - Weight 113 kg (248 lb 6.4 oz) 02/27/2025 12:29 P M EDT Height 160 cm (5' 3 ) 02/27/2025 12:29 PM EDT Body Mass Index 44 02/27/2025 12:29 PM EDT Plan of Treatment Health Maintenance Due Date Last Done Comments Hepatitis C Virus Screening 1957 Creatinine with GFR 1967 Foot Exam 1967 Hemoglobin A1C 1967 Lipid Panel 1967 Ophthalmology Exam 1967 Microalbumin/Creatinine Ratio Urine 1975 DTaP/Tdap/Td Vaccines (1 - Tdap) 1976 Pneumococcal Vaccines 50+ (1 of 2 - PCV) 1976 Mammogram 1997 Colonoscopy 2002 Zoster (Shingles) Vaccine (1 of 2) 2007 RSV Vaccine 60 years and old er and Patients (1 - Risk 60-74 years 1-dose series) 2017 DXA Bone Density (Females,Ag es 65 and older) 2022 COVID-19 Vaccine (1 - 2023-2 5 season) 2024 Influenza Vaccine 05/31/2025 Hepatitis B Vaccines Aged Out No long er eligible based on patient's age to complete this topic Procedures Procedure Name Priority Date/Time Associated Diagnosis Comments US HEART ARCHIVE FOR REFERENCE ONLY Routine 02/27/2025 12:23 PM EDT CARDIOLOGY ECHO 02/15/2025 3:23 PM EDT from Last 3 Months Results * US Heart Archive for reference only (02/27/2025 12:23 PM EDT) Laura MADDOX - 02/27/2025 12:23 PM EDT This study has been auto finalized and does not contain a result. us File Room Provider IMG DIGITIZE FILMS Final Resu lt TAN [phone] * CARDIOLOGY ECHO (02/15/2025 3:23 PM EDT) Anatomical Region Laterality Modality Other Narrative 02/15/2025 3:23 PM EDT Ordered by an unspecified provider. Generic Provider HX AMB PROCEDURES Final Result from Last 3 Months Insurance MEDICARE PART A & B [facility] FOR [employer] Care Teams Gta Relationship Specialty Start Date End Date Adithya Gutierrez MD [address] [place] [address] PCP - General Internal Medicine 02/15/25 Garrett Veliz MD [address] [address] Surgery, Cardiac 02/15/25 Kevin Mendez [address] [place] [address] [address] [place] [address] 02/15/25
[2025-05-08 17:07] LABS: Hematocrit 36.0 % (37.0-47.0); Hemoglobin 12.5 g/dl (12.0-16.0); Imm Gran Abs Auto 0.03 X10*3/uL (0.00-0.03); Imm Gran Pct Auto 0.6 % (0.0-0.4); Lymphocytes Absolute Auto 1.6 X10*3/uL (1.2-4.9); Mean Corpuscular HGB Conc 34.7 g/dl (31.0-35.0); Mean Corpuscular Hemoglobin 30.4 pg (27.0-33.0); Mean Corpuscular Volume 87.6 fL (80.0-98.0); NRBC Abs Auto 0.000 X10*3/uL (0.0-0.012); NRBC Pct Auto 0.0 /100WBC (0.0-0.2); Platelet Count 280 X10*3/uL (160-400); Red Blood Count 4.11 X10*6/uL (4.20-5.50); White Blood Count 5.4 X10*3/uL (4.8-10.8)
[2025-05-08 17:15] LABS: INTERNATIONAL NORM RATIO 1.1 (0.9-1.1); Prothrombin Time 12.3 SEC (10.9-12.4)
[2025-05-08 17:17] LABS: Hemoglobin A1C 205.4243 umol/L; Total Hemoglobin (HGBA1C) 3336.2117 umol/L
[2025-05-08 17:47] LABS: Alanine Aminotransferase 16 U/L (0-31); Albumin Level 3.9 g/dL (3.5-5.0); Alkaline Phosphatase 105 U/L (39-117); Anion Gap 15 (12-20); Aspartate Amino Transferase 18 U/L (5-31); Blood Urea Nitrogen 16 mg/dL (9-16); Calcium 8.9 mg/dL (8.4-10.2); Carbon Dioxide 25 mmol/L (22-29); Chloride 105 mmol/L (96-108); Estimated Glomerular Filt Rate > 60; Potassium 4.0 mmol/L (3.3-5.1); Sodium 141 mmol/L (135-145); Total Protein 7.7 g/dL (6.5-8.0)
== END 2025-05-08 14:55 | disposition home or self-care (01) ==
LOC: HO.LAB 14:54
PROVIDERS: Internal Medicine Cardiovascular Disease; Nurse Practitioner Family; Student in an Organized Health Care Education/Training Program; PCP Internal Medicine; Visit Provider Internal Medicine
DX: D62 Acute posthemorrhagic anemia (principal); R94.39 Abnormal result of other cardiovascular function study; I48.21 Permanent atrial fibrillation; E11.40 Type 2 diabetes mellitus with diabetic neuropathy, unspecified; I25.10 Atherosclerotic heart disease of native coronary artery without angina pectoris; I42.9 Cardiomyopathy, unspecified; I50.21 Acute systolic (congestive) heart failure; I48.92 Unspecified atrial flutter
CPT/HCPCS: 36415; 80053; 83036; 84443; 85025; 85610

== ENCOUNTER 2025-05-10 14:57 | Outpatient (AMB) | payer MEDICARE, BC, SELFPAY ==
--- NOTE | 2025-05-10 14:59 | A.OFFVIS_ITS ---
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: No Accompanied by: Self / Same As Patient Allergies divalproex sodium (From Depakote) Allergy (Mild, Verified 05/10/25 14:59) diarrhea, brain fog gluten Allergy (Mild, Verified 05/10/25 14:59) Unknown hazelnut Allergy (Unknown, Verified 05/10/25 14:59) Unknown shellfish derived Allergy (Unknown, Verified 05/10/25 14:59) Unknown sesame seeds Allergy (Unknown, Uncoded 01/15/25 10:01) Unknown Medication List - Last Reconciled 05/10/25 by Adithya Gutierrez MD amiodarone 200 mg PO DAILY artificial tears solution 1 drp ophthalmic (eye) TID ascorbic acid (vitamin C) (Vitamin C) 250 mg PO DAILY carbamazepine 200 mg PO BID cholecalciferol (vitamin D3) 25 mcg PO DAILY dextrose 40% (Glutose-15) 15 grams See Protocol PO Q15M PRN furosemide 40 mg See Protocol PO DAILY glipizide 5 mg PO DAILY insulin lispro (Admelog U-100 Insulin lispro) See Protocol units subcut QIDACHS levothyroxine 150 mcg PO DAILY@0600 lurasidone 60 mg PO DAILY metoprolol tartrate 50 mg See Protocol PO BID quetiapine 100 mg PO BEDTIME rivaroxaban (Xarelto) 20 mg PO DAILY@1700 sacubitril-valsartan 24-26 mg (Entresto) 1 tab See Protocol PO BID spironolactone 25 mg See Protocol PO DAILY syringe with needle As directed trazodone 100 mg PO BEDTIME HPI MWV HPI Details Medicare wellness and ongoing follow-up appointment - The patient is a 69-year-old female pr esenting with a rash primarily on the neck and hands, which is characterized by bubbles and itchiness. The onset of these dermatological symptoms was noted during a recent hospital visit. Itching, exacerbated by scratching, has been reported. Prior treatment with clotrimazole and Gold Goldman cream provided limited relief. - She reports a recent diagnosis of a si lent myocardial infarction, leading to cardiac damage that precludes surgical interventions such as bypass. - Her insomnia has been exacerbated by m edication management concerns, with trazodone being used at a 100 mg dose. Attempts to self-medicate with an increa sed dose led to disagreement with her psychiatrist, who plans to adjust her medication. The patient reports recent episodes of remaining awake until 3 a.m. - The patient experiences occasional lima rrhea, usually postprandial, though not regularly. - She experiences stability with episodi c need for insulin since enrolling in a monitoring program. Her A1c is 7.8%, indicating room for improvement in glycemic control. Medical History: - History of silent myocardial infarctio n - Insomnia managed with trazodone - Diabetes mellitus with manageable A1c of 7.8% - skin rash Social History: - Lives with family and reports having a healthcare proxy, daughter Fernanda Perry. - Engages in minimal physical activity; uses a personal walker. - No recent immunizations; does not part ailin in vaccines or flu shots. Tetanus vaccine last received in 2008. - Psychiatric care is managed through [facility]; patient has a therapist but faces difficulties with psychiatric follow-up communication. Diagnostic Results: - Labs: Hemoglobin levels normal, electr olyte levels normal, kidney function normal, liver enzymes normal, thyroid normal. A1c level at 7.8%. Problem List - Dermatological rash (localized rash on neck and hands) - Insomnia - Diabetes mellitus - Silent myocardial infarction Patient Instructions - Apply prescribed cream for rash relief as directed. Lotrisone - Attend upcoming dermatology and cardio logy appointments. - Maintain current diabetes management a nd monitor blood sugar levels as planned. - Follow psychiatric consult. Recommend ations for bipolar disorder management and insomnia - follow-up 4 months for diabetes manage ment Review of Systems - General: No fever no chills - Neurological: No headaches no dizziness - Ear nose throat: No sore throat no hearing difficulty no ear pain - Cardiovascular: No syncope, no chest pain, no palpitations - Gastrointestinal: No nausea vomiting or diarrhea Physical Exam General: No acute distress, sitting in wheelchair able to stand up with assistance HEENT: No acute findings Neck: Rash present, very demarcated around the neck only erythematous Respiratory system: Able to talk in full sentences, no audible wheeze Cardiovascular: S1-S2 Gastrointestinal: No pain Extremities: no swelling INDEPENDENT DRIVER: Alert awake oriented x3 Skin: normal turgor HPI Comments History of Present Illness Details AWV Medical/social history reviewed Past medical history reviewed [place] of care / care team list updated Surgical/ hospitalization history reviewed Current medications including OTC and supplements reviewed Family history reviewed Tobacco controlled form updated Alcohol use form updated Illicit drug use in social history reviewed Current diagnosis of depression ?screening updated Appropriate PHQ 2/PHQ-9 completed . Vital signs reviewed Alcohol tobacco drug use reviewed and discussed . MMSE completed . ? Fall risk: ?Assessed Fall history: ?Yes Have you had any falls with injury in the past year?? Yes Have you had 2 or more falls in the past year?? Yes Fall risk assessment completed Home safety discussed with the patient Functional ability assessed and discussed and documented Activities of daily living reviewed and appropriate actions taken . HRA filled out by the patient and reviewed by provider and scanned . Appropriate written screening schedule established . Any health advise needed provided . Advance care planning discussed with the patient , necessary paperwork filled Examination IPPE/AWE: Balance off need assistance [place]berg not checked patient is unable to keep the balance well Tandem walk failed walk-in turn failed rise from sit to stand failed . ?Hearing ?whisper test pass . Medication list reviewed, patient is stable on medications All other providers patient is seeing discussed and noted . [facility] Medical History Non-insulin dependent type 2 diabetes mellitus Atrial flutter Bladder cancer Acute blood loss anemia Recurrent UTI Bilateral dacryocystitis Fall Frequency of urination Gait instability UTI (urinary tract infection) Pre-syncope Irritable bowel syndrome with diarrhea Chronic atrial fibrillation Paroxysmal atrial fibrillation C. difficile colitis Morbid obesity due to excess calories Weakness Leg edema Bipolar 1 disorder Vertigo PTSD (post-traumatic stress disorder) History of cardioversion Arthritis Hypothyroidism History of wheezing Diabetes mellitus HTN (hypertension) LBBB (left bundle branch block) PAF (paroxysmal atrial fibrillation) Surgical History History of cardiac cath History of cardiac radiofrequency ablation History of eye surgery Hx of section Hx of colonoscopy Hx of cholecystectomy Hx of arthroscopy of right knee Family History Father No problems noted. Mother No problems noted. Other Mental health disorder Substance use disorder Social History Household Members: Spouse Household Members Other:: daughter + Housing: House Do you presently have visiting nurse or other home services: Yes Alcohol intake: former Comment: feels safe and has a lift at home Patient Tobacco Use Status: Former Tobacco user Tobacco use type: Cigarette e-Cigarette/Vaping Use: Never Used Second Hand Smoke Exposure: No Advance Directives Date on File: 06/29/23 service: No Current occupational status: employed Sexual orientation: Straight/Heterosexual Cognitive needs: No Hearing needs: No Vision needs: Yes Questionnaire Medicare Wellness Checkup What [age] What gender do you identify with?: female During the past 4 weeks, how much have you been bothered by emotional problems such as feeling anxious, depressed, irritable, sad or downhearted, and blue?: slightly During the past 4 weeks, has your physical & emotional health limited your social activities with family, friends, neighbors, or groups?: not at all During the past 4 weeks, how much bodily pain have you generally had?: moderate pain During the past 4 weeks, was someone available to help you if you needed & wanted help?: yes, some During the past 4 weeks, what was the hardest physical activity you could do for at least 2 minutes?: moderate Can you get to places out of walking distance without help? (For eg., can you travel alone on buses, taxis or drive your car?): No Can you go shopping for groceries or clothes without someone's help?: No Can you prepare your own meals?: No Can you do your housework without help?: No Because of any health problems, do you need the help of another person with your personal care needs such as eating, bathing, dressing or getting around the house?: Yes Can you handle your own money without help?: Yes During the past 4 weeks, how would you rate your health in general?: good During the past 4 weeks how have things been going for you?: good & bad parts about equal Are you having difficulties driving your car?: not applicable, I don't use a car Do you always fasten your seat belt when you are in a car?: yes, usually During past 4 weeks, have you been bothered by the following: never: Falling or dizzy when standing up, Sexual problems?, Teeth or denture problems?, Problems using the telephone? and Tiredness or fatigue? and seldom: Trouble eating well? Have you fallen 2 or more times in the past year?: No Are you afraid of falling?: No Are you a smoker?: no During the past 4 weeks, how many drinks of wine, beer, or other alcoholic beverages did you have?: no alcohol at all Do you exercise for about 20 minutes 3 or more times a week?: no, I usually do not exercise this much Have you been given information to help with the following?: yes: Hazards in your house that might hurt you? and yes: Keeping track of your medications? How often do you have trouble taking medicines the way you have been told to take them?: I always take medicine as prescribed How confident are you that you can control & manage most of your health problems?: very confident What is your race?: White Mini Mental State Exam (MMSE) Orientation What is the (year) (season) (date) (day) (month)?: year, season, date, day and month Where are we (state) (county) (town or city) (hospital) (floor)?: state, county, town or city, hospital/clinic and floor Score Score: 10 Activity of Daily Living Bathing - sponge bath, tub bath or shower: receives help in bathing more than on e body part (or not bathed) Dressing - getting clothes from closets & drawers, including inner/outer garments & fasteners.: gets clothes & gets dressed without help, except for help tying shoes Toileting - going to the 'toilet room' for urine/bowel elimination & cleaning self/arranging clothes: receives help going to toilet room, cleaning self or arr anging clothes Transfer: moves in & out of bed or chair with help Continence: has occasional 'accidents' Feeding: feeds self except getting help in cutting meat/buttering bread Total Score: 1 Information obtained from: patient Using telephone: independent Traveling: dependent Shopping: dependent Preparing meals: dependent Housework: dependent Taking medicine: needs assistance Managing money: needs assistance PHQ-9 Over the last 2 weeks, how often have you been bothered by any of the following problems? 1. Little interest or pleasure in doing things: not at all 2. Feeling down, depressed, or hopeless: not at all 3. Trouble falling or staying asleep, or sleeping too much: several days 4. Feeling tired or having little energy: not at all 5. Poor appetite or overeating: not at all 6. Feeling bad about yourself - or that you are a failure or have let yourself or your family down: not at all 7. Trouble concentrating on things, such as reading the newspaper or watching television: not at all 8. Moving or speaking so slowly that other people could have noticed. Or the opposite - being so fidgety or restless that you have been moving around a lot more than usual: not at all 9. Thoughts that you would be better off or of hurting yourself in some way: not at all Total score: 1 Depression Screening Interpretation: Negative Depression Screening Done: Yes 53964 - PHQ-9 Billing: Yes Source: Developed by Drs. Galo Triplett, Lavern Israel, Darion Jarvis and colleagues, with an educational lisette from [employer]. Physical Exam Vital Signs: Last Vital Signs Pulse 60 05/10/25 15:00 Resp 16 05/10/25 15:00 BP 110/78 05/10/25 15:00 Pulse Ox 60 L 05/10/25 15:00 Oxygen Delivery Method Room Air 05/10/25 15:00 BMI result Body Mass Index 43.9 Assessment & Plan Assessment & Plan (1) Medicare annual wellness visit, initial: Code(s): Z00.00 - Encounter for general adult medical examination without abnormal findings (2) Rash: Code(s): R21 - Rash and other nonspecific skin eruption (3) Non-insulin dependent type 2 diabetes mellitus: Code(s): E11.9 - Type 2 diabetes mellitus without complications (4) HTN (hypertension): Comment: As above Code(s): I10 - Essential (primary) hypertension Qualifiers: Hypertension type: primary hypertension Qualified Code(s): I10 - Essential (primary) hypertension (5) Other specified hypothyroidism: Code(s): E03.8 - Other specified hypothyroidism (6) Diastolic dysfunction with chronic heart failure: Code(s): I50.32 - Chronic diastolic (congestive) heart failure (7) Chronic atrial fibrillation: Code(s): I48.20 - Chronic atrial fibrillation, unspecified (8) CAD (coronary artery disease): Code(s): I25.10 - Atherosclerotic heart disease of [place] coronary artery without angina pectoris Qualifiers: Coronary Disease-Associated Artery/Lesion type: [place] artery [place] vs. transplanted heart: [place] heart Associated angina: without angina Qualified Code(s): I25.10 - Atherosclerotic heart disease of [place] coronary artery without angina pectoris Plan Medicare wellness and ongoing follow-up appointment has history of cardiomyopathy, hypertension, diabetes, hypothyroidism, bipolar disorder, balance problem, morbid obesity dependent on assistance device for mobility, risk for fall - The patient is a 69-year-old female presenting with a rash primarily on the neck and hands, which is characterized by bubbles and itchiness. The onset of these dermatological symptoms was noted during a recent hospital visit. Itching, exacerbated by scratching, has been reported. Prior treatment with clotrimazole and Gold Goldman cream provided limited relief. - She reports a recent diagnosis of a silent myocardial infarction, leading to cardiac damage that precludes surgical interventions such as bypass. - Her insomnia has been exacerbated by medication management concerns, with trazodone being used at a 100 mg dose. Attempts to self-medicate with an increased dose led to disagreement with her psychiatrist, who plans to adjust her medication. The patient reports recent episodes of remaining awake until 3 a.m. - The patient experiences occasional diarrhea, usually postprandial, though not regularly. - She experiences stability with episodic need for insulin since enrolling in a monitoring program. Her A1c is 7.8%, indicating room for improvement in glycemic control. Medical History: - History of silent myocardial infarction - Insomnia managed with trazodone - Diabetes mellitus with manageable A1c of 7.8% - skin rash Social History: - Lives with family and reports having a healthcare proxy, daughter Fernanda Perry. - Engages in minimal physical activity; uses a personal walker. - No recent immunizations; does not partake in vaccines or flu shots. Tetanus vaccine last received in 2008. - Psychiatric care is managed through [facility]; patient has a therapist but faces difficulties with psychiatric follow-up communication. Diagnostic Results: - Labs: Hemoglobin levels normal, electrolyte levels normal, kidney function normal, liver enzymes normal, thyroid normal. A1c level at 7.8%. Problem List - Dermatological rash (localized rash on neck and hands) - Insomnia - Diabetes mellitus - Silent myocardial infarction Patient Instructions - Apply prescribed cream for rash relief as directed. Lotrisone - Attend upcoming dermatology and cardiology appointments. - Maintain current diabetes management and monitor blood sugar levels as planned. - Follow psychiatric consult. Recommendations for bipolar disorder management and insomnia - follow-up 4 months for diabetes management Orders: Referrals Dermatology Referral R21 - Rash and other nonspecific skin eruption Medications: New clotrimazole-betamethasone 1-0.05 % 1 appl topical ONCE 45 grams 0RF 30 days Quality Reporting (2019) Depression/Bipolar (159/160/161/177) PHQ-9: Total score: 1 Coding Level of Care Code Medicare First (G0438) Est Pt Level 4 (05875) Diagnoses Medicare annual wellness visit, initial Z00.00 Rash R21 Non-insulin dependent type 2 diabetes mellitus E11.9 Primary hypertension I10 Hypertension type: primary hypertension Other specified hypothyroidism E03.8 Diastolic dysfunction with chronic heart failure I50.32 Chronic atrial fibrillation I48.20 Coronary artery disease involving [place] coronary artery of [place] heart without angina pectoris I25.10 Coronary Disease-Associated Artery/Lesion type: [place] artery [place] vs. transplanted heart: [place] heart Associated angina: without angina CPT Codes Advance Care Planning - Advance Care Planning discussion: On file, no changes ([id number]) Advance Care Planning - Time spent: 1-15 minutes, on File ([id number]) Additional Codes PHQ-9 - 87037 - PHQ-9 Billing: Yes ([id number]) Advance Care Planning Advance Care Planning discussion: On file, no changes Forms completed: Health Care Proxy and MOLST Time spent: 1-15 minutes, on File
[2025-05-10 15:00] VITALS: BP 110/78; PULSE 60; RESP 16; O2SAT 60; BMI 43.9
--- OUTSIDE RECORDS SUMMARY | 2025-05-10 15:01 | XMS_ITS | Clinical Summary ---
Author Organization [facility] Address [address] [place] [address] Care Team Providers Care Harness Installer Name Role Phone Adithya Gutierrez MD Primary Care Provider [phone] Garrett Veliz MD Unavailable [phone] Kevin Mendez Unavailable Allergies Active Allergy Reactions [...] Type Department Care Team Description 05/07/2025 Telephone [facility] [address] [phone] Garrett Veliz MD Appointment 03/14/2025 Telephone [facility] [address] [phone] Garrett Veliz MD 03/14/2025 Orders Only [facility] [address] [phone] Garrett Veliz MD 03/14/2025 Orders Only [facility] [address] [place] [address], [place] [address] Garrett Veliz MD 02/27/2025 1:00 PM EDT Consult [facility] [address] [place] [address], [place] [address] Garrett Veliz MD Ischemic cardiomyopathy (Primary Dx) 02/27/2025 12:25 PM EDT Ancillary Procedure [facility] [address] [facility] [place] [address] Provider, File Room 02/27/2025 Travel 02/25/2025 Telephone [facility] [address] [place] [address], [place] [phone] Garrett Veliz MD Request for Imaging 02/15/2025 Scanned Document [facility] [address] [place] [address], [place] [id number] Provider, Generic 02/15/2025 Transcribe Orders [facility] [address] [place] [address], [place] [phone] Sonali Dumont, KEVIN Atherosclerosis of [place] coronary artery of [place] heart without angina pectoris (Primary Dx); Cardiomyopathy, unspecified type (HCC) 02/15/2025 Abstract [facility] [address] [place] [address], [place] [phone] Garrett Veliz MD from Last 3 Months [...] IMG DIGITIZE FILMS Final Resu lt TAN [phone] * CARDIOLOGY ECHO (02/15/2025 3:23 PM EDT) Anatomical Region Laterality Modality Other Narrative 02/15/2025 3:23 PM EDT Ordered by an unspecified provider. Generic Provider HX AMB PROCEDURES Final Result from Last 3 Months Insurance MEDICARE PART A & B [facility] [employer] Care Teams Harness Installer Relationship Specialty Start Date End Date Adithya Gutierrez MD [address] [place] [address] PCP - General Internal Medicine 02/15/25 Garrett Veliz MD [address] [address] Surgery, Cardiac 02/15/25 Kevin Mendez [address] [place] [address] [address] [place] [address] 02/15/25
== END 2025-05-10 15:42 | disposition home or self-care (01) ==
LOC: HO.HMCC 14:57
PROVIDERS: PCP Internal Medicine; Visit Provider Internal Medicine
DX: Z00.00 Encounter for general adult medical examination without abnormal findings (principal); E11.9 Type 2 diabetes mellitus without complications; I50.32 Chronic diastolic (congestive) heart failure; I48.20 Chronic atrial fibrillation, unspecified; R21 Rash and other nonspecific skin eruption; I10 Essential (primary) hypertension; E03.8 Other specified hypothyroidism; I25.10 Atherosclerotic heart disease of native coronary artery without angina pectoris

== ENCOUNTER → 2025-05-10 14:57 | Outpatient (BNVA) | payer MEDICARE, BC, SELFPAY | PROVIDERS: PCP Internal Medicine; Visit Provider Internal Medicine | DX: Z00.01 Encounter for general adult medical examination with abnormal findings (principal); R21 Rash and other nonspecific skin eruption; E11.9 Type 2 diabetes mellitus without complications; E03.8 Other specified hypothyroidism; I11.0 Hypertensive heart disease with heart failure; I50.32 Chronic diastolic (congestive) heart failure; I48.20 Chronic atrial fibrillation, unspecified; I25.10 Atherosclerotic heart disease of native coronary artery without angina pectoris | CPT/HCPCS: 96127; 99212 ==

== ENCOUNTER 2025-05-21 09:10 | Outpatient (AMB) | payer MEDICARE, BC, SELFPAY ==
[2025-05-21 09:16] VITALS: BP 100/62; PULSE 54; BMI 43.0
--- NOTE | 2025-05-21 09:16 | MHC.OFFVIS ---
Vital Signs 05/21/25 09:16 Height 5 ft 3 in Weight 243 lb BMI 43.0 BP 100/62 Blood Pressure Location Rt brachial Position Sitting Pulse 54 Pulse Source Pulse Oximeter Intake Visit Reasons: 3 mth f/up/ discharge follow up r/s 05-02-25 Head Animal Trainer Required: No Bowling Floor Desk Clerk: Bowling Floor Desk Clerk Present Allergies divalproex sodium (From Depakote) Allergy (Mild, Verified 05/21/25 09:23) diarrhea, brain fog gluten Allergy (Mild, Verified 05/21/25 09:23) Unknown hazelnut Allergy (Unknown, Verified 05/21/25 09:23) Unknown shellfish derived Allergy (Unknown, Verified 05/21/25 09:23) Unknown sesame seeds Allergy (Unknown, Uncoded 05/21/25 09:23) Unknown Medication List - Last Reconciled 05/21/25 by ETHAN Gutierrez amiodarone 200 mg PO DAILY artificial tears solution 1 drp ophthalmic (eye) TID ascorbic acid (vitamin C) (Vitamin C) 250 mg PO DAILY carbamazepine 200 mg PO BID cholecalciferol (vitamin D3) 25 mcg PO DAILY clotrimazole-betamethasone 1-0.05 % 1 appl topical ONCE 30 days dextrose 40% (Glutose-15) 15 grams See Protocol PO Q15M PRN furosemide 40 mg See Protocol PO DAILY glipizide 5 mg PO DAILY insulin lispro (Admelog SoloStar U-100 Insulin lispro) 1 sliding scale dose subcut QIDACHS MDD 30 units levothyroxine 150 mcg PO DAILY@0600 lurasidone 60 mg PO DAILY metoprolol tartrate 50 mg PO BID pen needle, diabetic As directed to inject insulin up to 4 times per day quetiapine 100 mg PO BEDTIME rivaroxaban (Xarelto) 20 mg PO DAILY@1700 sacubitril-valsartan 24-26 mg (Entresto) 1 tab See Protocol PO BID spironolactone 25 mg See Protocol PO DAILY trazodone 150 mg PO BEDTIME HPI HPI 3 mth f/up/ discharge follow up r/s 05-02-25: Details: Chloe is a 69-year-old female with past medical history of bipolar, hypertension, diabetes, diastolic dysfunction, morbid obesity, sedentary, paroxysmal AFib , bladder cancer, heart failure with reduced EF, CAD with 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 Since last visit she was admitted to [facility] for psychiatric issues. She was seen by Dr. Fernández for EKG with QT prolongation. She was continued on her amiodarone and psychiatric meds. She now presents for follow-up. Today she did see cardiac surgery at [facility], Dr. Veliz. He wanted a cardiac MRI I that was scheduled while she was recently hospitalized so she missed the appointment. She has been doing good since her hospital discharge. She tells me her trazodone dose was just increased and she was able to sleep better last night. No recurrent manic or paranoid episodes. She does have ongoing shortness of breath with walking even short distances. She is still mostly sedentary and is currently sitting in a wheelchair. She has not had any recent heart palpitations. She denies having chest discomfort at rest or with activity. No lightheadedness, presyncope, syncope, falls. No bleeding issues reported. Taking meds as directed. is present [facility] Medical History Non-insulin dependent type 2 diabetes mellitus Atrial flutter Bladder cancer Acute blood loss anemia Recurrent UTI Bilateral dacryocystitis Fall Frequency of urination Gait instability UTI (urinary tract infection) Pre-syncope Irritable bowel syndrome with diarrhea Chronic atrial fibrillation Paroxysmal atrial fibrillation C. difficile colitis Morbid obesity due to excess calories Weakness Leg edema Bipolar 1 disorder Vertigo PTSD (post-traumatic stress disorder) History of cardioversion Arthritis Hypothyroidism History of wheezing Diabetes mellitus HTN (hypertension) LBBB (left bundle branch block) PAF (paroxysmal atrial fibrillation) Surgical History History of cardiac cath History of cardiac radiofrequency ablation History of eye surgery Hx of section Hx of colonoscopy Hx of cholecystectomy Hx of arthroscopy of right knee Family History Father No problems noted. Mother No problems noted. Other Mental health disorder Substance use disorder Social History Household Members: Spouse Household Members Other:: daughter + Housing: House Do you presently have visiting nurse or other home services: Yes Alcohol intake: former Comment: feels safe and has a lift at home Patient Tobacco Use Status: Former Tobacco user Tobacco use type: Cigarette e-Cigarette/Vaping Use: Never Used Second Hand Smoke Exposure: No Advance Directives Date on File: 06/29/23 service: No Current occupational status: employed Sexual orientation: Straight/Heterosexual Cognitive needs: No Hearing needs: No Vision needs: Yes Review of Systems Const All systems reviewed & are unremarkable except as noted in HPI and below ENT Denies dizziness Card Denies chest pain, Denies chest pain at rest, Denies chest pain with activity, Denies rapid heart rate, Denies pedal edema, Denies edema, Denies leg edema, Denies lightheadedness, Denies palpitations, Denies dyspnea, Reports dyspnea on exertion and Denies orthopnea Resp Denies cough, Denies dyspnea and Reports dyspnea on exertion GI Denies hematochezia and Denies change in stool character Musc Reports abnormal gait, Denies limited range of motion, Denies muscle cramps, Denies muscle weakness, Denies numbness, Denies radiating pain into limb, Denies stiffness and Denies tingling Neuro Reports abnormal gait, Denies dizziness, Denies numbness and Denies tingling Endo Denies palpitations Physical Exam Vital Signs: Last Vital Signs Pulse 54 05/21/25 09:16 BP 100/62 05/21/25 09:16 BMI result Body Mass Index 43.0 Const Other: sitting in wheelchair General: cooperative, healthy appearing, comfortable and no acute distress Orientation/consciousness: patient oriented x3 Neck Neck: Yes normal visual inspection and Yes no JVD Resp Effort & Inspection: normal respiratory effort Auscultation: clear to auscultation bilaterally, no rales, no rhonchi and no wheezes Cardio Rate: regular rate Rhythm: regular rhythm Heart sounds: S1 normal heart sound present, S2 normal heart sound present, no murmurs and no rubs Neuro General: patient oriented x3 Extrem Other: Right femoral catheterization site healing well, palpable femoral pulse, nontender. General: Yes normal to inspection, No no pedal edema and No calf tenderness Psych Appearance: grossly normal Mental Status: mental status grossly normal Speech and movement: Normal speech and movement present Office Procedures EKG Details: Today read by me, sinus bradycardia, first-degree AV block, incomplete left bundle branch block, nonspecific ST and T-wave abnormality, low-voltage QRS, rate 54, QTC 487 milliseconds [id number], Complete Assessment & Plan Assessment & Plan (1) CAD (coronary artery disease): Code(s): I25.10 - Atherosclerotic heart disease of [place] coronary artery without angina pectoris Category: Medical Qualifiers: Associated angina: without angina Coronary Disease-Associated Artery/Lesion type: [place] artery [place] vs. transplanted heart: [place] heart Qualified Code(s): I25.10 - Atherosclerotic heart disease of [place] coronary artery without angina pectoris Plan: Echo from 09/10/2024 showed EF 30-35%, paradoxical septal motion consistent with left bundle branch block, regional wall motion abnormalities could not be excluded. This led to a nuclear stress test 10/18/2024 which showed LAD territory ischemia/infarct pattern. A cardiac catheterization done 01/01/2025 is showing ostial LAD FINANCIAL PLANNING ADVISOR with [id number] collaterals. Recommendation for single-vessel coronary artery bypass grafting. She was referred to Cardiac surgery and has recently seen Dr. Veliz at [facility]. Cardiac MRI was ordered to evaluate for lad territory viability. She missed the appointment due to recent hospitalization. Instructed to call his office to reschedule this procedure. Continue with risk factor modification and guideline directed medical therapy. She is not on aspirin as she is on Xarelto. Atorvastatin was ordered last visit however she is no longer on it for unclear reason. She is on metoprolol and Entresto. Signs and symptoms of angina reviewed with her. Cardiology follow-up 4 months, sooner if needed. Anticipate that will be post surgery. (2) S/P cardiac cath: Comment: Before 2024, lad ostial 99% FINANCIAL PLANNING ADVISOR with [id number] collaterals, left circumflex with minimal irregularities, RCA with minimal irregularities Code(s): Z98.890 - Other specified postprocedural states Category: Surgical Plan: As above (3) Chronic atrial fibrillation: Code(s): I48.20 - Chronic atrial fibrillation, unspecified Category: Medical Plan: History of atrial fibrillation which had been persistent. She was put on amiodarone and cardioversion planned and she converted prior to the procedure. No known recurrent AFib since that time. EKG today showing sinus bradycardia with first-degree AV block, incomplete left bundle branch block, rate 54. Labs done 05/08/2025 showed TSH 3.8, AST 18. hematocrit 36. Continue amiodarone 200 mg daily, metoprolol 50 mg b.i.d. for rhythm and rate control. Continue Xarelto 20 mg daily for anticoagulation. (4) Diastolic dysfunction with chronic heart failure: Code(s): I50.32 - Chronic diastolic (congestive) heart failure Category: Medical Plan: History of heart failure with reduced EF. Echocardiogram 09/10/2024 showed EF 30-35%, low normal RV systolic function, significantly elevated right atrial pressures, mild pulmonary hypertension. She does have NYHA class 3 symptoms. She does not appear fluid overloaded on exam today. Continue metoprolol and Entresto for neurohormonal modulation. Continue Lasix and Aldactone as diuretics. Continue home weight monitoring. She can take 1 extra Lasix pill if she gains over 3 lb in a day or 5 lb in a week. Anticipate that EF will improve following coronary artery bypass surgery. (5) Chronic anticoagulation: Code(s): Z79.01 - custodial (current) use of anticoagulants Category: Medical Plan: On Xarelto for anticoagulation. (6) Cardiomyopathy: Code(s): I42.9 - Cardiomyopathy, unspecified Category: Medical Plan: Ischemic, as above (7) Hospital discharge follow-up: Code(s): Z09 - Encounter for follow-up examination after completed treatment for conditions other than malignant neoplasm Category: Medical Plan: Recent hospital discharge summary reviewed. Psychiatric condition now stabilized. Plan Time spent on chart review, documentation, interview and assessment Medications: Changed From trazodone 100 mg PO BEDTIME 30 tabs 0RF To trazodone 150 mg PO BEDTIME Coding Level of Care Code Est Pt Level 4 (29532) Complex EM visit Add On G2211 Diagnoses Coronary artery disease involving [place] coronary artery of [place] heart without angina pectoris I25.10 Associated angina: without angina Coronary Disease-Associated Artery/Lesion type: [place] artery [place] vs. transplanted heart: [place] heart S/P cardiac cath Z98.890 Chronic atrial fibrillation I48.20 Diastolic dysfunction with chronic heart failure I50.32 Chronic anticoagulation Z79.01 Cardiomyopathy I42.9 Hospital discharge follow-up Z09 CPT Codes EKG - CPT: 51716-[id number], Complete ([id number]) Time Spent (min) 32
--- OUTSIDE RECORDS SUMMARY | 2025-05-21 09:42 | XMS_ITS | Clinical Summary ---
Author Organization [facility] Address [address] [place] [address] Care Team Providers Care Local Sales Associate Name Role Phone Adithya Gutierrez MD Primary Care Provider [phone] Garrett Veliz MD Unavailable [phone] Kevin Mendez Unavailable Allergies Active Allergy Reactions [...] Type Department Care Team Description 05/07/2025 Telephone [facility] Cardiothoracic Surgery [address] [address] Garrett Veliz MD Appointment 03/14/2025 Telephone [facility] Cardiothoracic Surgery [address] [address] Garrett Veliz MD 03/14/2025 Orders Only [facility] Cardiothoracic Surgery [address] [address] Garrett Veliz MD 03/14/2025 Orders Only [facility] Cardiothoracic Surgery [place] [address] [facility] [address] [place] [address] Garrett Veliz MD 02/27/2025 1:00 PM EDT Consult [facility] Cardiothoracic Surgery [place] [address] [facility] [place] [address] Garrett Veliz MD Ischemic cardiomyopathy (Primary Dx) 02/27/2025 12:25 PM EDT Ancillary Procedure [facility] [address] [facility] [place] [address] Provider, File Room 02/27/2025 Travel 02/25/2025 Telephone [facility] Cardiothoracic Surgery [address] [place] [phone] Garrett Veliz MD Request for Imaging from Last 3 Months Social History Tobacco [...] REFERENCE ONLY Routine 02/27/2025 12:23 PM EDT from Last 3 Months Results * US Heart Archive for reference only (02/27/2025 12:23 PM EDT) Narrative TAN - 02/27/2025 12:23 PM EDT This study has been auto finalized and does not contain a result. us File Room Provider IMG DIGITIZE FILMS Final Resu lt TAN [phone] from Last 3 Months Insurance MEDICARE PART A & B [employer] Care Teams Local Sales Associate Relationship Specialty Start Date End Date Adithya Gutierrez MD [address] [place] [address] PCP - General Internal Medicine 02/15/25 Garrett Veliz MD [address] [place] [id number] Surgery, Cardiac 02/15/25 Kevin Mendez [address] [place] [address] 3[address] [place] [address] 02/15/25
== END 2025-05-21 09:54 | disposition home or self-care (01) ==
LOC: HO.HCS 09:11
PROVIDERS: PCP Internal Medicine; Visit Provider Nurse Practitioner Family
DX: I25.10 Atherosclerotic heart disease of native coronary artery without angina pectoris (principal); Z98.890 Other specified postprocedural states; I48.20 Chronic atrial fibrillation, unspecified; I50.32 Chronic diastolic (congestive) heart failure; Z79.01 Long term (current) use of anticoagulants; I42.9 Cardiomyopathy, unspecified; Z09 Encounter for follow-up examination after completed treatment for conditions other than malignant neoplasm
CPT/HCPCS: 93010; 99214; G2211

== ENCOUNTER → 2025-05-21 09:10 | Outpatient (BNVA) | payer MEDICARE, BC, SELFPAY | PROVIDERS: PCP Internal Medicine; Visit Provider Nurse Practitioner Family | DX: Z09 Encounter for follow-up examination after completed treatment for conditions other than malignant neoplasm (principal); I25.10 Atherosclerotic heart disease of native coronary artery without angina pectoris; I48.20 Chronic atrial fibrillation, unspecified; I50.32 Chronic diastolic (congestive) heart failure; Z79.01 Long term (current) use of anticoagulants; Z98.890 Other specified postprocedural states; I42.9 Cardiomyopathy, unspecified; I44.0 Atrioventricular block, first degree; R94.31 Abnormal electrocardiogram [ECG] [EKG]; R00.1 Bradycardia, unspecified | CPT/HCPCS: 93005; 99212 ==

== ENCOUNTER 2025-05-28 08:25 | Outpatient (REF) | payer MEDICARE, BC, SELFPAY ==
--- OUTSIDE RECORDS SUMMARY | 2025-05-28 08:38 | XMS_ITS | Encounter Summary ---
Author Organization [facility] Address [address] [place] [address] Care Team Providers Care Hair Colorist Name Role Phone Adithya Gutierrez MD Primary Care Provider [phone] Garrett Veliz MD Unavailable [phone] Kevin Mendez Unavailable Encounter Details Date Type Department Care Team (Late st Contact Info) Description 05/21/2025 Scanned Document [facility] Cardiothoracic Surgery [address] [phone] Cardiology, Scan Social History Tobacco Use Types Packs/Day Years Used Date Smoking Tobacco: Never Assessed Comments Unknown Sex and Gender Information Value Date Recorded Sex Assigned at Female 02/15/2025 2:09 PM EDT Legal Sex Female 6:22 PM EST Gender Identity Female 02/15/2025 2:09 PM EDT Sexual Orientation Heterosexual (straight) 02/15 2:20 PM EDT documented as of this encounter Plan of Treatment Not on file documented as of this encounter Visit Diagnoses Not on filedocumented in this encounter Care Teams Hair Colorist Relationship Specialty Start Date End Date Adithya Gutierrez MD [facility] [place] [address] PCP - General Internal Medicine 02/15/25 Garrett Veliz MD [address] [place] [address] Surgery, Cardiac 02/15/25 Kevin Mendez [address] [place] [address] 3rd [place] [address] 02/15/25 documented as of this encounter
[2025-05-28 08:40] LABS: MANUAL DIFF FLAG NO
[2025-05-28 08:49] LABS: Hematocrit 33.5 % (37.0-47.0); Hemoglobin 11.3 g/dl (12.0-16.0); Imm Gran Abs Auto 0.02 X10*3/uL (0.00-0.03); Imm Gran Pct Auto 0.4 % (0.0-0.4); Lymphocytes Absolute Auto 1.6 X10*3/uL (1.2-4.9); Mean Corpuscular HGB Conc 33.7 g/dl (31.0-35.0); Mean Corpuscular Hemoglobin 29.6 pg (27.0-33.0); Mean Corpuscular Volume 87.7 fL (80.0-98.0); NRBC Abs Auto 0.000 X10*3/uL (0.0-0.012); NRBC Pct Auto 0.0 /100WBC (0.0-0.2); Platelet Count 199 X10*3/uL (160-400); Red Blood Count 3.82 X10*6/uL (4.20-5.50); White Blood Count 4.8 X10*3/uL (4.8-10.8)
[2025-05-28 09:20] LABS: Alanine Aminotransferase 10 U/L (0-31); Albumin Level 3.7 g/dL (3.5-5.0); Alkaline Phosphatase 85 U/L (39-117); Anion Gap 13 (12-20); Aspartate Amino Transferase 17 U/L (5-31); Blood Urea Nitrogen 12 mg/dL (9-16); Calcium 8.3 mg/dL (8.4-10.2); Carbon Dioxide 26 mmol/L (22-29); Chloride 105 mmol/L (96-108); Estimated Glomerular Filt Rate > 60; Potassium 4.0 mmol/L (3.3-5.1); Sodium 140 mmol/L (135-145); Total Protein 6.9 g/dL (6.5-8.0)
[2025-05-28 09:22] LABS: Carbamazepine Tegretol 7.6 mcg/mL (5.0-12.0)
== END 2025-05-28 08:26 | disposition home or self-care (01) ==
LOC: HO.LAB 08:25
PROVIDERS: PCP Internal Medicine; Visit Provider Registered Nurse
DX: Z79.899 Other long term (current) drug therapy (principal)
CPT/HCPCS: 36415; 80053; 80156; 85025

== ENCOUNTER 2025-06-25 16:16 | Outpatient (AMB) | payer MEDICARE, BC, SELFPAY ==
[2025-06-25 16:31] VITALS: BP 128/62; PULSE 69; TEMP 36.7; O2SAT 94; BMI 43.0
--- NOTE | 2025-06-25 16:31 | AM.OFFWIN_ITS ---
Intake Vital Signs 06/25/25 16:31 Height 5 ft 3 in Weight 243 lb BMI 43.0 BP 128/62 Blood Pressure Location Lt brachial Position Sitting Pulse 69 Pulse Source Pulse Oximeter Temp 98.1 F Temp Source Oral Pulse Oximetry (%) 94 Oxygen Delivery Method Room Air Intake Visit Reasons: EP-UTI Yeast infection Intake Note: pt presents with concern for a yeast infection, currently on macrobid x1days for UTI Patient Tobacco Use Status: Former Tobacco user Allergies divalproex sodium (From Depakote) Allergy (Mild, Verified 06/25/25 16:32) diarrhea, brain fog gluten Allergy (Mild, Verified 06/25/25 16:32) Unknown hazelnut Allergy (Unknown, Verified 06/25/25 16:32) Unknown shellfish derived Allergy (Unknown, Verified 06/25/25 16:32) Unknown sesame seeds Allergy (Unknown, Uncoded 05/21/25 09:23) Unknown Do you need a note to return to daycare/school/sports/work: No HPI HPI Comments History of Present Illness Details This is a 70-year-old female with a past medical history of atrial fibrillation currently maintained on Xarelto, CHF, coronary artery disease and insulin-dependent diabetes presenting from home for evaluation of vaginal irritation. Patient states that she started to have dysuria with urinary frequency over the weekend and her on-call physician prescribed Macrobid which she first started yesterday. Patient states that she will occasionally get a topical yeast infection in her inguinal folds for which she uses nystatin. Patient has been using her nystatin over the past 3 days but feels that she may now have a vaginal yeast infection. Patient denies having any fevers, chills, abdominal pain or episodes of hyperglycemia. [facility] Medical History Non-insulin dependent type 2 diabetes mellitus Atrial flutter Bladder cancer Acute blood loss anemia Recurrent UTI Bilateral dacryocystitis Fall Frequency of urination Gait instability UTI (urinary tract infection) Pre-syncope Irritable bowel syndrome with diarrhea Chronic atrial fibrillation Paroxysmal atrial fibrillation C. difficile colitis Morbid obesity due to excess calories Weakness Leg edema Bipolar 1 disorder Vertigo PTSD (post-traumatic stress disorder) History of cardioversion Arthritis Hypothyroidism History of wheezing Diabetes mellitus HTN (hypertension) LBBB (left bundle branch block) PAF (paroxysmal atrial fibrillation) Surgical History History of cardiac cath History of cardiac radiofrequency ablation History of eye surgery Hx of section Hx of colonoscopy Hx of cholecystectomy Hx of arthroscopy of right knee Family History Father No problems noted. Mother No problems noted. Other Mental health disorder Substance use disorder Social History Household Members: Spouse Household Members Other:: daughter + Housing: House Do you presently have visiting nurse or other home services: Yes Alcohol intake: former Comment: feels safe and has a lift at home Patient Tobacco Use Status: Former Tobacco user Tobacco use type: Cigarette e-Cigarette/Vaping Use: Never Used Second Hand Smoke Exposure: No Advance Directives Date on File: 06/29/23 service: No Current occupational status: employed Sexual orientation: Straight/Heterosexual Cognitive needs: No Hearing needs: No Vision needs: Yes Review of Systems Const All systems reviewed & are unremarkable except as noted in HPI and below Denies chills, Denies fatigue and Denies fever(s) GI Denies abdominal pain, Denies diarrhea, Denies nausea and Denies vomiting Reports dysuria, Reports urinary urgency, Reports vaginal discharge and Reports vaginal pruritus Musc Reports no additional complaints Skin/Breast Reports system reviewed and no additional complaints, except as documented Neuro Reports no additional complaints Psych Reports no additional complaints Endo Reports no additional complaints and Denies fatigue Serafin/Lymph Reports no additional complaints Aller/Immun Reports no additional complaints Physical Exam Vital Signs: Last Vital Signs Temp 98.1 F 06/25/25 16:31 Pulse 69 06/25/25 16:31 BP 128/62 06/25/25 16:31 Pulse Ox 94 06/25/25 16:31 Oxygen Delivery Method Room Air 06/25/25 16:31 BMI result Body Mass Index 43.0 Patient is afebrile. Const General: cooperative, healthy appearing, comfortable, no acute distress, well developed, alert, awake and Physically active; No ill appearing or lethargic Nutritional Appearance: overweight Orientation/consciousness: patient oriented x3 and No lethargic Limitations: wheelchair GI Palpation (GI): Soft to palpation, nontender and no guarding General: Yes Bimanual renal exam normal bilaterally and Yes bladder normal to palpation External Female Exam: No normal external appearance, erythema, No externally tender, No urethral discharge, No tender and other (white opaque discharge noted vaginal introitus; speculum exam deferred) Bimanual exam- vagina & uterus: bladder normal to palpation Skin Other: erythematous scale noted inguinal regions bilaterally; no clinical evidence of a secondary cellulitis Neuro General: patient oriented x3 Psych Appearance: grossly normal Mental Status: mental status grossly normal Insight: Good insight present (Psych) Judgement: Good judgement present (Psych) Results AMB Urinalysis, Automated UA Leukoctes 70 Quiana/uL Last Edit by Rose Abebe CMA on 06/25/25 16:39 UA Nitrite Negative Last Edit by Rose Abebe CMA on 06/25/25 16:39 UA Urobilinogen 0.2 mg/dL Last Edit by Rose Abebe CMA on 06/25/25 16:39 UA Protein 0 mg/dL Last Edit by Rose Abebe CMA on 06/25/25 16:39 UA pH 6.0 Last Edit by Rose Abebe CMA on 06/25/25 16:39 UA Blood 0 Kayode/uL Last Edit by Rose Abebe CMA on 06/25/25 16:39 UA Specific [place] 1.015 Last Edit by Rose Abebe CMA on 06/25/25 16:39 UA Ketone Negative Last Edit by Rose Abebe CMA on 06/25/25 16:39 UA Bilirubin 0 mg/dL Last Edit by Rose Abebe CMA on 06/25/25 16:39 UA Glucose 500 mg/dL Last Edit by Rose Abebe CMA on 06/25/25 16:39 Results Reviewed Results Reviewed: Laboratory Last Values Urine pH (Auto) 6.0 06/25/25 16:31 Specific [place] (Auto) 1.015 06/25/25 16:31 Urine Protein (Auto) 0 mg/dL 06/25/25 16:31 Glucose (UA)(Auto) 500 mg/dL 06/25/25 16:31 Urine Ketones (Auto) Negative 06/25/25 16:31 Urine Blood (Auto) 0 Kayode/uL 06/25/25 16:31 Urine Nitrite (Auto) Negative 06/25/25 16:31 Urine Bilirubin (Auto) 0 mg/dL 06/25/25 16:31 Urine Urobilinogen (Auto) 0.2 mg/dL 06/25/25 16:31 Leukocyte Esterase (Auto) 70 Quiana/uL 06/25/25 16:31 Urinalysis is reviewed. Patient is currently taking Macrobid. Assessment & Plan Assessment & Plan (1) Vaginitis: Comment: BV panel will be obtained and a urine culture is pending at this time. Code(s): N76.0 - Acute vaginitis Qualifiers: Chronicity: acute Qualified Code(s): N76.0 - Acute vaginitis Plan: Fluconazole 200 mg x 1. BV panel and urine culture are pending. Orders: Orders Urine Culture Today R30.0 - Dysuria AMB Urinalysis Automated Today Z13.9 - Encounter for screening, unspecified Bacterial Vaginosis Panel Today N76.0 - Acute vaginitis Medications: New fluconazole 200 mg PO ONCE 1 tab 0RF Coding Level of Care Code Est Pt Level 3 (78090) Diagnoses Acute vaginitis N76.0 Chronicity: acute Time Spent (min) 20
--- OUTSIDE RECORDS SUMMARY | 2025-06-25 16:48 | XMS_ITS | Encounter Summary ---
Author Organization [facility] Address [address] [place] [address] Care Team Providers Care Outside Energy Sales Representatives Name Role Phone Adithya Gutierrez MD Primary Care Provider [phone] Garrett Veliz MD Unavailable [phone] Kevin Mendez Unavailable Encounter Details Date Type Department Care Team (Late st Contact Info) Description 01/27/2025 Scanned Document [facility] Cardiothoracic Surgery [place] [address] [facility] [address] [place] [phone] Cardiology, Scan Social History Tobacco Use Types Packs/Day Years Used Date Smoking Tobacco: Never Assessed Comments Unknown Sex and Gender Information Value Date Recorded Sex Assigned at Female 02/15/2025 2:09 PM EDT Legal Sex Female 6:22 PM EST Gender Identity Female 02/15/2025 2:09 PM EDT Sexual Orientation Heterosexual (straight) 02/15 2:20 PM EDT documented as of this encounter Plan of Treatment Upcoming Encounters Date Type Department Care Team (Late st Contact Info) Description 07/05/2025 1:00 PM EDT Appointment [facility] Radiology [address] [place] [address] documented as of this encounter Visit Diagnoses Not on filedocumented in this encounter Care Teams Outside Energy Sales Representatives Relationship Specialty Start Date End Date Adithya Gutierrez MD [facility] [place] [address] PCP - General Internal Medicine 02/15/25 Garrett Veliz MD [address] [place] [id number] Surgery, Cardiac 02/15/25 Kevin Mendez [address] [place] [address] 3[address] [place] [address] 02/15/25 documented as of this encounter
--- OUTSIDE RECORDS SUMMARY | 2025-06-25 16:48 | XMS_ITS | Encounter Summary ---
Author Organization Formerly [facility] Address [address] [place] [address] Care Team Providers Care Jewel Hole Cornerer Name Role Phone Adithya Gutierrez MD Primary Care Provider [phone] Garrett Veliz MD Unavailable [phone] Kevin Mendez Unavailable Encounter Details Date Type Department Care Team (Late st Contact Info) Description 12/21/2024 Scanned Document [facility] Cardiothoracic Surgery [place] 85 [facility] [address] [place] [phone] Primary Care, Scan Social History Tobacco Use Types Packs/Day [...] Info) Description 07/05/2025 1:00 PM EDT Appointment [facility] Radiology [address] [place] [address] documented as of this encounter Procedures Procedure Name Priority Date/Time Associated Diagnosis Comments LAB RESULT 12/21/2024 documented in this encounter Results * LAB RESULT (12/21/2024) us Scan Primary Care HX AMB PROCEDURES Final Result documented in this encounter Visit Diagnoses Not on filedocumented in this encounter Care Teams Jewel Hole Cornerer Relationship Specialty Start Date End Date Adithya Gutierrez MD [address] [place] [address] PCP - General Internal Medicine 02/15/25 Garrett Veliz MD [address] [place] [address] Surgery, Cardiac 02/15/25 Kevin Mendez [address] [place] [address] 3rd [place] [address] 02/15/25 documented as of this encounter
--- OUTSIDE RECORDS SUMMARY | 2025-06-25 16:48 | XMS_ITS | Clinical Summary ---
Author Organization [facility] Address [address] [place] [address] Care Team Providers Care Soap Slabber Name Role Phone Adithya Gutierrez MD Primary Care Provider [phone] Garrett Veliz MD Unavailable [phone] Kevin Mendez Unavailable Allergies Active Allergy Reactions [...] Encounters Date Type Department Care Team Description 05/21/2025 Scanned Document [facility] Cardiothoracic Surgery [address] [address] Cardiology, Scan 05/07/2025 Telephone [facility] Cardiothoracic Surgery [address] [address] Garrett Veliz MD Appointment from Last 3 Months Social History Tobacco [...] 02/27/2025 12:29 PM EDT Plan of Treatment Upcoming Encounters Date Type Department Care Team (Late st Contact Info) Description 07/05/2025 1:00 PM EDT Appointment [facility] Radiology [address] [place] [address] Health Maintenance Due Date Last Done Comments [...] on patient's age to complete this topic Insurance MEDICARE PART A & B [facility] Care Teams Soap Slabber Relationship Specialty Start Date End Date Adithya Gutierrez MD [address] [place], [place] PCP - General Internal Medicine 02/15/25 Garrett eVliz MD [address] [place] [address] Surgery, Cardiac 02/15/25 Kevin Mendez [address] [place] [address] 3rd Floor YARY Carrasco [address] 02/15/25
--- OUTSIDE RECORDS SUMMARY | 2025-06-25 16:48 | XMS_ITS | Encounter Summary ---
Author Organization Formerly [facility] Address [address] [place] [address] Care Team Providers Care Propeller Inspector Name Role Phone Adithya Gutierrez MD Primary Care Provider [phone] Garrett Veliz MD Unavailable [phone] Kevin Mendez Unavailable Encounter Details Date Type Department Care Team (Late st Contact Info) Description 02/15/2025 Scanned Document [facility] Cardiothoracic Surgery [address] [place] [phone] Provider, Generic Social History Tobacco Use Types Packs/Day Years [...] Info) Description 07/05/2025 1:00 PM EDT Appointment [facility] Radiology [address] [place] [address] documented as of this encounter Procedures Procedure Name Priority Date/Time Associated Diagnosis Comments CARDIOLOGY ECHO 02/15/2025 3:23 PM EDT documented in this encounter Results * CARDIOLOGY ECHO (02/15/2025 3:23 PM EDT) Anatomical Region Laterality Modality Other Narrative 02/15/2025 3:23 PM EDT Ordered by an unspecified provider. us Generic Provider HX AMB PROCEDURES Final Result documented in this encounter Visit Diagnoses Not on filedocumented in this encounter Care Teams Propeller Inspector Relationship Specialty Start Date End Date Adithya Gutierrez MD [address] [place] [address] PCP - General Internal Medicine 02/15/25 Garrett Veliz MD [address] [place] [address] Surgery, Cardiac 02/15/25 Kevin Mendez [address] [place] [address] 3rd [place] [address] 02/15/25 documented as of this encounter
--- OUTSIDE RECORDS SUMMARY | 2025-06-25 16:48 | XMS_ITS | Encounter Summary ---
Author Organization Formerly [facility] Address [address] [place] [address] Care Team Providers Care Reception Agent Name Role Phone Adithya Gutierrez MD Primary Care Provider [phone] Garrett Veliz MD Unavailable Kevin Mendez Unavailable Encounter Details Date Type Department Care Team (Late st Contact Info) Description 05/21/2025 Scanned Document [facility] Cardiothoracic Surgery [place] 85 [facility] [address] [place] [phone] Cardiology, Scan Social History Tobacco Use [...] Info) Description 07/05/2025 1:00 PM EDT Appointment [facility] Radiology [address] [place] [address] documented as of this encounter Visit Diagnoses Not on filedocumented in this encounter Care Teams Reception Agent Relationship Specialty Start Date End Date Adithya Gutierrez MD [facility] [address] PCP - General Internal Medicine 02/15/25 Garrett Veliz MD [address] [place] [address] Surgery, Cardiac 02/15/25 Kevin Mendez [address] [place] [address] 3rd [place] [address] 02/15/25 documented as of this encounter
--- OUTSIDE RECORDS SUMMARY | 2025-06-25 16:48 | XMS_ITS | Encounter Summary ---
Author Organization [facility] Address [address] [place] [address] Care Team Providers Care Tool Crib Clerk Name Role Phone Adithya Gutierrez MD Primary Care Provider [phone] Garrett Veliz MD Unavailable [phone] Kevin Mendez Unavailable Encounter Details Date Type Department Care Team (Late st Contact Info) Description 01/01/2025 Scanned Document [facility] Cardiothoracic Surgery [place] 85 [facility] [address] [place] [phone] Cardiology, Scan Social History Tobacco Use [...] Description 07/05/2025 1:00 PM EDT Appointment [facility] Radiology [address] [place] [address] documented as of this encounter Procedures Procedure Name Priority Date/Time Associated Diagnosis Comments LAB RESULT 01/01/2025 CARDIAC CATHETERIZATION 01/01/2025 CARDIAC CATHETERIZATION 01/01/2025 ECG 12-LEAD 01/01/2025 documented in this encounter Results * LAB RESULT (01/01/2025) us Scan Cardiology HX AMB PROCEDURES Final Result * CARDIAC CATHETERIZATION (01/01/2025) Anatomical Region Laterality Modality Other us Scan Cardiology CV CARDIAC CATH ORDERABLES Final Result * CARDIAC CATHETERIZATION (01/01/2025) Anatomical Region Laterality Modality Other us Scan Cardiology CV CARDIAC CATH ORDERABLES Final Result * ECG 12 lead (01/01/2025) us Scan Cardiology ECG ORDERABLES Final Result documented in this encounter Visit Diagnoses Not on filedocumented in this encounter Care Teams Tool Crib Clerk Relationship Specialty Start Date End Date Adithya Gutierrez MD [address] [place] [address] PCP - General Internal Medicine 02/15/25 Garrett Veliz MD [address] [place] [address] Surgery, Cardiac 02/15/25 Kevin Mendez [address] [place] [address] 3rd [place] [address] 02/15/25 documented as of this encounter
== END 2025-06-25 17:11 | disposition home or self-care (01) ==
PROVIDERS: PCP Internal Medicine; Visit Provider Physician Assistant
DX: N76.0 Acute vaginitis (principal); Z13.9 Encounter for screening, unspecified

== ENCOUNTER 2025-06-25 16:16 | Outpatient (REF) | payer MEDICARE, BC, SELFPAY ==
[2025-06-26 11:38] LABS: Bacterial Vaginosis PCR NEGATIVE (Negative); Candida Group PCR NOT DETECTED (Not Detect); Candida glab krusei PCR NOT DETECTED (Not Detect); Trichomonas vaginalis PCR NOT DETECTED (Not Detect)
== END 2025-06-25 16:17 | disposition home or self-care (01) ==
LOC: HO.LNP 16:16
PROVIDERS: PCP Internal Medicine; Visit Provider Physician Assistant
DX: N76.0 Acute vaginitis (principal); R30.0 Dysuria
CPT/HCPCS: 81003; 81515; 99212

== ENCOUNTER 2025-06-26 09:57 | Outpatient (REF) | payer MEDICARE, BC, SELFPAY ==
--- OUTSIDE RECORDS SUMMARY | 2025-06-26 10:40 | XMS_ITS | Encounter Summary ---
Author Organization Formerly [facility] Address [address] [place] [address] Care Team Providers Care Chemical Engineering Intern Name Role Phone Adithya Gutierrez MD Primary Care Provider [phone] Garrett Veliz MD Unavailable [phone] Kevin Mendez Unavailable Encounter Details Date Type Department Care Team (Late st Contact Info) Description 01/27/2025 Scanned Document [facility] Cardiothoracic Surgery [place] 85 [facility] [address] [place] [phone] Cardiology, Scan Social History Tobacco Use [...] Info) Description 07/05/2025 1:00 PM EDT Appointment [facility] Radiology [address] [place] [address] documented as of this encounter Visit Diagnoses Not on filedocumented in this encounter Care Teams Chemical Engineering Intern Relationship Specialty Start Date End Date Adithya Gutierrez MD [facility] [place] [address] PCP - General Internal Medicine 02/15/25 Garrett Veliz MD [address] [place] [address] Surgery, Cardiac 02/15/25 Kevin Mendez [address] [place] [address] 3rd [place] [address] 02/15/25 documented as of this encounter
--- OUTSIDE RECORDS SUMMARY | 2025-06-26 10:40 | XMS_ITS | Encounter Summary ---
Author Organization [facility] Address [address] [place] [address] Care Team Providers Care Loader Engineer Name Role Phone Adithya Gutierrez MD Primary Care Provider [phone] Garrett Veliz MD Unavailable Kevin Mendez Unavailable Encounter Details Date Type Department Care Team (Late st Contact Info) Description 01/01/2025 Scanned Document [facility] Cardiothoracic Surgery [place] 85 [facility] [address] [place] [phone] Cardiology, Scan Social History Tobacco Use [...] Info) Description 07/05/2025 1:00 PM EDT Appointment [facility] Radiology [address] [place] [address] documented as of this encounter Procedures Procedure [...] on filedocumented in this encounter Care Teams Loader Engineer Relationship Specialty Start Date End Date Adithya Gutierrez MD [address] [place] [address] PCP - General Internal Medicine 02/15/25 Garrett Veliz MD [address] [place] [address] Surgery, Cardiac 02/15/25 Kevin Mendez [address] [place] [address] 3rd [place] [address] 02/15/25 documented as of this encounter
--- OUTSIDE RECORDS SUMMARY | 2025-06-26 10:40 | XMS_ITS | Encounter Summary ---
Author Organization [facility] Address [address] [place] [address] Care Team Providers Care Type Casting Machine Operator Name Role Phone Adithya Gutierrez MD Primary Care Provider [phone] Garrett Veliz MD Unavailable [phone] Kevin Mendez Unavailable Encounter Details Date Type Department Care Team (Late st Contact Info) Description 02/15/2025 Scanned Document [facility] Cardiothoracic Surgery [address] [place] [phone] Provider, Generic Social History Tobacco Use [...] Info) Description 07/05/2025 1:00 PM EDT Appointment [facility] Radiology [address] [place] [address] documented as of this encounter Procedures Procedure [...] on filedocumented in this encounter Care Teams Type Casting Machine Operator Relationship Specialty Start Date End Date Adithya Gutierrez MD [address] [place] [address] PCP - General Internal Medicine 02/15/25 Garrett Veliz MD [address] [place] [address] Surgery, Cardiac 02/15/25 Kevin Mendez [address] [place] [address] 3rd [place] [address] 02/15/25 documented as of this encounter
--- OUTSIDE RECORDS SUMMARY | 2025-06-26 10:40 | XMS_ITS | Encounter Summary ---
Author Organization [facility] Address [address] [place] [address] Care Team Providers Care Digital Campaign Manager Name Role Phone Adithya Gutierrez MD Primary Care Provider [phone] Garrett Veliz MD Unavailable [phone] Kevin Mendez Unavailable Encounter Details Date Type Department Care Team (Late st Contact Info) Description 10/18/2024 Scanned Document [facility] Cardiothoracic Surgery [place] 85 [facility] [address] [place] [phone] Cardiology, Scan Social History Tobacco Use [...] Description 07/05/2025 1:00 PM EDT Appointment [facility] Radiology [address] [place] [address] documented as of this encounter Procedures Procedure Name Priority Date/Time Associated Diagnosis Comments STRESS TEST 10/18/2024 documented in this encounter Results * STRESS TEST (10/18/2024) Anatomical Region Laterality Modality Other us Scan Cardiology HX AMB PROCEDURES Final Result documented in this encounter Visit Diagnoses Not on filedocumented in this encounter Care Teams Digital Campaign Manager Relationship Specialty Start Date End Date Adithya Gutierrez MD [address] [place] [address] PCP - General Internal Medicine 02/15/25 Garrett eVliz MD [address] [place] [address] Surgery, Cardiac 02/15/25 Kevin Mendez [address] [place] [address] 3rd [place] [address] 02/15/25 documented as of this encounter
--- OUTSIDE RECORDS SUMMARY | 2025-06-26 10:40 | XMS_ITS | Encounter Summary ---
Author Organization [facility] Address [address] [place] [address] Care Team Providers Care Performing Artist Name Role Phone Adithya Gutierrez MD Primary Care Provider [phone] Garrett Veliz MD Unavailable Kevin Mendez Unavailable Encounter Details Date Type Department Care Team (Late st Contact Info) Description 12/21/2024 Scanned Document [facility] Cardiothoracic Surgery [place] 85 [facility] [address] [place] [phone] Primary Care, Scan Social History Tobacco [...] Info) Description 07/05/2025 1:00 PM EDT Appointment [facility] Radiology [address] [place] [address] documented as of this encounter Procedures Procedure Name Priority Date/Time Associated Diagnosis Comments LAB RESULT 12/21/2024 documented in this encounter Results * LAB RESULT (12/21/2024) us Scan Primary Care HX AMB PROCEDURES Final Result documented in this encounter Visit Diagnoses Not on filedocumented in this encounter Care Teams Performing Artist Relationship Specialty Start Date End Date Adithya Gutierrez MD [address] [place] [address] PCP - General Internal Medicine 02/15/25 Garrett Veliz MD [address] [place] [address] Surgery, Cardiac 02/15/25 Kevin Mendez [address] [place] [address] 3rd [place] [address] 02/15/25 documented as of this encounter
--- OUTSIDE RECORDS SUMMARY | 2025-06-26 10:40 | XMS_ITS | Encounter Summary ---
Author Organization [facility] Address [address] [place] [address] Care Team Providers Care Workforce Development Program Director Name Role Phone Adithya Gutierrez MD Primary Care Provider [phone] Garrett Veliz MD Unavailable [phone] Kevin Mendez Unavailable Encounter Details Date Type Department Care Team (Late st Contact Info) Description 05/21/2025 Scanned Document [facility] Cardiothoracic Surgery [place] 85 [facility] [address] [place] [phone] Cardiology, Scan Social History Tobacco Use [...] EDT Appointment [facility] Radiology [address] [place] [address] documented as of this encounter Visit Diagnoses Not on filedocumented in this encounter Care Teams Workforce Development Program Director Relationship Specialty Start Date End Date Adithya Gutierrez MD [facility] [place] [address] PCP - General Internal Medicine 02/15/25 Garrett Veliz MD [address] [place] [address] Surgery, Cardiac 02/15/25 Kevin Mendez [address] [place] [address] 3rd [place] [address] 02/15/25 documented as of this encounter
--- OUTSIDE RECORDS SUMMARY | 2025-06-26 10:40 | XMS_ITS | Clinical Summary ---
Author Organization [facility] Address [address] [place] [address] Care Team Providers Care Field Case Manager Name Role Phone Adithya Gutierrez MD Primary Care Provider [phone] Garrett Veliz MD Unavailable [phone] Kevin Mendez Unavailable Allergies Active Allergy Reactions [...] Department Care Team Description 05/21/2025 Scanned Document [facility] Cardiothoracic Surgery [address] [phone] Cardiology, Scan 05/07/2025 Telephone [facility] Cardiothoracic Surgery [address] [address] Garrett Veliz MD Appointment from [...] Description 07/05/2025 1:00 PM EDT Appointment [facility] Radiology [address] [place] [address] Health Maintenance Due Date Last Done Comments [...] topic Insurance MEDICARE PART A & B [facility] Care Teams Field Case Manager Relationship Specialty Start Date End Date Adithya Gutierrez MD [address] [place], [place] PCP - General Internal Medicine 02/15/25 Garrett Veliz MD [address] [place] [address] Surgery, Cardiac 02/15/25 Kevin Mendez [address] [place] [address] 3rd Floor [place] Carras[place] [address] 02/15/25
== END 2025-06-26 09:58 | disposition home or self-care (01) ==
LOC: HO.LAB 09:57
PROVIDERS: Visit Provider Physician Assistant
DX: Z13.89 Encounter for screening for other disorder (principal)

== ENCOUNTER 2025-07-19 11:14 | Outpatient (REF) | payer MEDICARE, BC, SELFPAY ==
--- OUTSIDE RECORDS SUMMARY | 2025-07-16 15:40 | XMS_ITS | Encounter Summary ---
Author Organization [facility] Address [address] [place] [address] Care Team Providers Care Transcription Coordinator Name Role Phone Adithya Gutierrez MD Primary Care Provider [phone] Garrett Veliz MD Unavailable [phone] Kevin Mendez Unavailable Encounter Details Date Type Department Care Team (Late st Contact Info) Description 07/16/2025 3:40 PM EDT Ancillary Procedure [facility] Radiology [address] [place] [address] Provider, File Room Arrived Social History Tobacco Use Types Packs/Day Years [...] on file documented as of this encounter Procedures Procedure Name Priority Date/Time Associated Diagnosis Comments GILBERTO ARCHIVE FOR REFERENCE ONLY XA Routine 07/16/2025 3:40 PM EDT documented in this encounter Results * GILBERTO Archive for reference only XA (07/16/2025 3:40 PM EDT) Laura MADDOX - 07/16/2025 3:35 PM EDT This order has been auto-finalized and does not contain a result. us File Room Provider IMG DIGITIZE FILMS Final Resu lt TAN [phone] documented in this encounter Visit Diagnoses Not on filedocumented in this encounter Care Teams Transcription Coordinator Relationship Specialty Start Date End Date Adithya Gutierrez MD [address] [place] [address] PCP - General Internal Medicine 02/15/25 Garrett Veliz MD [address] [place] [address] Surgery, Cardiac 02/15/25 Kevin Mendez [address] [place] [address] 3rd [place] [address] 02/15/25 documented as of this encounter
[2025-07-19 11:51] LABS: Hemoglobin 11.4 g/dl (12.0-16.0); NRBC Abs Auto 0.000 X10*3/uL (0.0-0.012); NRBC Pct Auto 0.0 /100WBC (0.0-0.2); PLT CLUMP 1; SCAN SMEAR FLAG 1
[2025-07-19 11:53] LABS: Hematocrit 33.9 % (37.0-47.0); Imm Gran Abs Auto 0.01 X10*3/uL (0.00-0.03); Imm Gran Pct Auto 0.2 % (0.0-0.4); Lymphocytes Absolute Auto 1.5 X10*3/uL (1.2-4.9); MANUAL DIFF FLAG SCAN; Mean Corpuscular HGB Conc 33.6 g/dl (31.0-35.0); Mean Corpuscular Hemoglobin 29.8 pg (27.0-33.0); Mean Corpuscular Volume 88.5 fL (80.0-98.0); Red Blood Count 3.83 X10*6/uL (4.20-5.50)
--- OUTSIDE RECORDS SUMMARY | 2025-07-19 11:56 | XMS_ITS | Encounter Summary ---
Author Organization [facility] Address [address] [place] [address] Care Team Providers Care Formulation Technician Name Role Phone Adithya Gutierrez MD Primary Care Provider [phone] Garrett Veliz MD Unavailable [phone] Kevin Mendez Unavailable Encounter Details Date Type Department Care Team (Late st Contact Info) Description 02/15/2025 Scanned Document [facility] Cardiothoracic Surgery [address] [place] [phone] Provider, Generic Social History Tobacco Use [...] on filedocumented in this encounter Care Teams Formulation Technician Relationship Specialty Start Date End Date Adithya Gutierrez MD [address] [place] [address] PCP - General Internal Medicine 02/15/25 Garrett Veliz MD [address] [place] [address] Surgery, Cardiac 02/15/25 Kevin Mendez [address] [place] [address] 3rd [place] [address] 02/15/25 documented as of this encounter
--- OUTSIDE RECORDS SUMMARY | 2025-07-19 11:56 | XMS_ITS | Encounter Summary ---
Author Organization [facility] Address [address] [place] [address] Care Team Providers Care Sand Screener Name Role Phone Adithya Gutierrez MD Primary Care Provider [phone] Garrett Veliz MD Unavailable [phone] Kevin Mendez Unavailable Encounter Details Date Type Department Care Team (Late st Contact Info) Description 01/27/2025 Scanned Document [facility] Cardiothoracic Surgery [address] [phone] Cardiology, Scan Social History Tobacco [...] on filedocumented in this encounter Care Teams Sand Screener Relationship Specialty Start Date End Date Adithya Gutierrez MD [facility] [place] [address] PCP - General Internal Medicine 02/15/25 Garrett Veliz MD [address] [place] [address] Surgery, Cardiac 02/15/25 Kevin Mendez [address] [place] [address] 3rd [place] [address] 02/15/25 documented as of this encounter
--- OUTSIDE RECORDS SUMMARY | 2025-07-19 11:56 | XMS_ITS | Encounter Summary ---
Author Organization [facility] Address [address] [place] [address] Care Team Providers Care Cytotechnologist Name Role Phone Adithya Gutierrez MD Primary Care Provider [phone] Garrett Veliz MD Unavailable [phone] Kevin Mendez Unavailable Encounter Details Date Type Department Care Team (Late st Contact Info) Description 01/01/2025 Scanned Document [facility] Cardiothoracic Surgery [address] [place] [phone] Cardiology, Scan Social History Tobacco Use [...] on filedocumented in this encounter Care Teams Cytotechnologist Relationship Specialty Start Date End Date Adithya Gutierrez MD [address] [place] [address] PCP - General Internal Medicine 02/15/25 Garrett Veliz MD [address] [place] [address] Surgery, Cardiac 02/15/25 Kevin Mendez [address] [place] [address] 3rd [place] [address] 02/15/25 documented as of this encounter
--- OUTSIDE RECORDS SUMMARY | 2025-07-19 11:56 | XMS_ITS | Clinical Summary ---
Author Organization [facility] Address [address] [place] [address] Care Team Providers Care Windows Server Specialist Name Role Phone Adithya Gutierrez MD Primary Care Provider [phone] Garrett Veliz MD Unavailable [phone] Kevin Mendez Unavailable Allergies Active Allergy Reactions [...] by mouth daily on an empty stomach. Active amiODARONE (PACERONE) 200 MG tablet Take [...] Encounters Date Type Department Care Team Description 07/16/2025 3:40 PM EDT Ancillary Procedure [facility] Radiology [address] [place] [address] Provider, File Room Arrived 07/05/2025 12:33 PM EDT - 07/05/2025 11:59 PM EDT Hospital Encounter [facility] Radiology [address] [place] [id number] Ischemic cardiomyopathy Discharge Disposition: Home or Self Care 07/05/2025 12:27 PM EDT - 07/05/2025 12:32 PM EDT Hospital Encounter [facility] Radiology [address] [place] [address] Ischemic cardiomyopathy Discharge Disposition: Home or Self Care 07/05/2025 Travel 05/21/2025 Scanned Document [facility] Cardiothoracic Surgery [address] [place] [address] Cardiology, Scan 05/07/2025 Telephone [facility] Cardiothoracic Surgery [address] [place] [address] Garrett Veliz MD Appointment from Last [...] Sign Reading Time Taken Comments Blood Pressure 138/106 07/05/2025 1:18 PM EDT Pulse 55 07/05/2025 1:18 PM EDT Temperature 37 C (98.6 F) 02/27/2025 12:29 PM EDT Respiratory Rate - - Oxygen Saturation 97% 02/27/2025 12:29 PM EDT Inhaled Oxygen Concentration - - Weight 111 kg (245 lb) 07/05/2025 1:18 PM EDT Height 160 cm (5' 3 ) 07/05/2025 1:18 PM EDT Body Mass Index 43.4 07/05/2025 1:18 PM EDT Plan of Treatment Health Maintenance Due Date Last Done Comments Advance Care Planning 1955 Hepatitis C Virus Screening 1955 Creatinine with [...] Density (Females,Ag es 65 and older) 2022 Influenza Vaccine 05/31/2025 COVID-19 Vaccine (1 2023-2 5 season) 2025 Hepatitis B Vaccines Aged Out No long er eligible based on patient's age to complete this topic Procedures Procedure Name Priority Date/Time Associated Diagnosis Comments GILBERTO ARCHIVE FOR REFERENCE ONLY XA Routine 07/16/2025 3:40 PM EDT MRI EXTRA NON-CARDIAC RADIOLOGISTS INTERPRETATION Routine 07/05/2025 2:19 PM EDT Ischemic cardiomyopathy MRI CARDIAC MORPH+FUNCTION W W/O CONTRAST Routine 07/05/2025 2:19 PM EDT Ischemic cardiomyopathy HEMATOCRIT Routine 07/05/2025 12:33 PM EDT from Last 3 Months Results * GILBERTO Archive for reference only XA (07/16/2025 3:40 PM EDT) Narrative TAN - 07/16/2025 3:35 PM EDT This order has been auto-finalized and does not contain a result. us File Room Provider IMG DIGITIZE FILMS Final Resu lt TAN [phone] * MRI Extra Cardiac Interpretation (07/05/2025 2:19 PM EDT) Anatomical Region Laterality Modality Heart Magnetic Resonan ce 07/05/2025 12:3 3 PM EDT Impressions 07/08/2025 12:52 PM EDT No acute extracardiac findings.This report is only for the extracardiac findings. Please see the separately dictated report by Cardiology for further details. Narrative 07/08/2025 12:52 PM EDT EXAMINATION: EXTRACARDIAC READ BY RADIOLOGIST CLINICAL INFORMATION: Ischemic cardiomyopathy. COMPARISON: Chest radiograph 09/09/2024. TECHNIQUE: The included extracardiac anatomy was reviewed for extracardiac findings. This report is only for the extracardiac findings. Please see the separately dictated report by Cardiology for further details. FINDINGS: Review of the extracardiac anatomy demonstrates: Lungs: No focal consolidation or pleural effusion. MSK: Degenerative changes of the thoracic spine. Upper abdomen: No acute abnormality seen. Procedure Note Ricky Harmon MD - 07/08/2025 EXAMINATION: EXTRACARDIAC READ BY RADIOLOGIST CLINICAL INFORMATION: Ischemic cardiomyopathy. COMPARISON: Chest radiograph 09/09/2024. TECHNIQUE: The included extracardiac anatomy was reviewed for extracardiac findings. This report is only for the extracardiac findings. Please see the separately dictated report by Cardiology for further details. FINDINGS: Review of the extracardiac anatomy demonstrates: Lungs: No focal consolidation or pleural effusion. MSK: Degenerative changes of the thoracic spine. Upper abdomen: No acute abnormality seen. IMPRESSION: No acute extracardiac findings.This report is only for the extracardiac findings. Please see the separately dictated report by Cardiology for further details. us Galo Montaño PA-C IMG MRI ORDERABLES Final Re sult * MRI Cardiac morph+function w w/o contrast (07/05/2025 2:19 PM EDT) BSA 2.22 m2 [place] Heart Rate 55 bpm [place] Blood Pressure 138/106 mmHG [place] LV Diastolic Volume 108 82 - 162 mL [place] LV Diastolic Index 49 53 - 87 mL/m2 [place] LV Systolic Volume 49 20 - 57 mL [place] LV Systolic Index 22 13 - 31 mL/m2 [place] LVEF 54 60 - 78 % [place] LV stroke volume 59.0 56 - 111 mL [place] LV stroke volume index 26.6 36 - 60 ml/m2 [place] LV cardiac output 3.2 L/min [place] LV cardiac output index 1.46 L/min/m2 [place] LV Mass 86 73 - 145 g [place] LV Mass Index 39 48 - 78 g/m2 [place] Anteroseptal Wall Thickness 9 8 - 10 mm [place] Inferolateral Wall Thickness 8 8 - 10 mm [place] RV Diastolic Volume 100 75 - 160 mL [place] RV Diastolic Index 45 49 - 86 mL/m2 [place] RV Systolic Volume 38 11 - 63 mL [place] RV Systolic Index 17 8 - 34 mL/m2 [place] Rest RVEF 62 57 - 81 % [place] LA Volume Index 32 mL/m2 [place] RA Volume Index 21 mL/m2 [place] Aortic root Sinuses of Valsalva 29 25 - 35 mm [place] Mid-ascending aorta 30 27 - 35 mm [place] Descending aorta 25 20 - 28 mm [place] Main pulmonary artery dimension 27 mm [place] Pulmonary flow (Qp) 60 mL per beat [place] Systemic flow (Qs) 47 mL per beat [place] LA volume 70 mL [place] RA volume 47 mL [place] Aortic root Sinuses of Valsalva index 13 mm/m2 [place] Mid-ascending aorta index 14 mm/m2 [place] Descending aorta index 11 mm/m2 [place] Qp:Qs ratio 1.28 [place] Anatomical Region Laterality Modality Heart Magnetic Resonan ce Narrative 07/05/2025 3:24 PM EDT The left ventricular cavity size is normal. Left ventricular systolic function is reduced. Global function is mildly reduced. The calculated left ventricle ejection fraction is 54%. The right ventricle is normal in size. Right ventricular systolic function at rest is normal. The calculated right ventricle ejection fraction is 62%. Tissue characterization with parametric imaging shows elevated T1 and normal T2 relaxation time. There is no late gadolinium enhancement in the myocardium. There is mild mitral regurgitation. A formal radiology overread of the non-cardiac structures was performed. Please see the separate report. Noncardiac A formal radiology overread of the non-cardiac structures was performed. Please see the separate report. Left Ventricle The left ventricular cavity size is normal. Left ventricular systolic function is reduced. Global function is mildly reduced. The calculated left ventricle ejection fraction is 54%. There is no left ventricular hypertrophy noted. Aorta Aorta: The thoracic aorta is normal in size. The aortic root is normal. The ascending aorta is normal in size. The descending aorta is normal. . Pulmonary artery: The main pulmonary artery is normal in size with a maximum dimension of 27 mm. Flow analysis: Pulmonary flow (Qp): 60 mL per beat Systemic flow (Qs): 47 mL per beat Qp/Qs ratio: 1.28 Right Ventricle The right ventricle is normal in size. Right ventricular systolic function at rest is normal. The calculated right ventricle ejection fraction is 62%. Pericardium Pericardium is normal in thickness. There is no pericardial effusion. Study Details Indication for study: To assess viability and biventricular function. Cardiac MRI with and without contrast was performed on 1.5T Synetiqist scanner. Imaging sequences included black blood axial stack with SS-FSE, cine with FIESTA, T1 mapping, T2 mapping and late gadolinium enhancement. Gadolinium 0.2 mmol/kg was administered intravenously in the left antecubital fossa with no adverse affects. The patient tolerated the procedure well. The study quality was good. There were no artifacts. Prior Study There is no prior study available for comparison. Imaging Results There is no late gadolinium enhancement in the myocardium. Atria The left atrium is normal with a left atrial volume index of 32 mL/m2. The right atrium is normal with a right atrial volume index of 21 mL/m2. Valves Aortic: There is trace aortic valve insufficiency. Mitral: There is mild mitral regurgitation. Tricuspid: There was trace tricuspid regurgitation. Pulmonary: There is no pulmonic insufficiency. Parametric Imaging Parametric imaging (normal values): Elevated pokagon myocardial T1, suggestive of infiltrative disease. Global T1 relaxation time: 1017+/-71 ms (950-1000 ms) Global ECV is elevated at 35%, suggestive of microscopic interstitial fibrosis. Normal pokagon myocardial T2. Global T2 relaxation time: 55+/-2 ms (50-55 ms) Normal myocardial T2*. No evidence of iron overload. T2* relaxation time: 40+/-0.8 ms Galo Montaño PA-C IMG MRI ORDERABLES Final Re sult * Hematocrit (07/05/2025 12:33 PM EDT) Hematocrit 38.0 35.0 - 47.0 % 07/05/2025 2:35 PM EDT [facility] Blood Blood specimen / Unknown 07/05/2025 12:33 PM EDT 07/05/2025 2:27 PM EDT Margot Wan MD LAB BLOOD ORDERABLES Final Resul t [address] [address], [address] [id number] from Last 3 Months Insurance MEDICARE PART A & B [facility] [place] [employer] Care Teams Windows Server Specialist Relationship Specialty Start Date End Date Adithya Gutierrez MD [address] [place], [place] PCP - General Internal Medicine 02/15/25 Garrett Veliz MD [address] [place] [address] Surgery, Cardiac 02/15/25 Kevin Mendez [address] [place] [address] [address] YARY Carrasco [address] 02/15/25
--- OUTSIDE RECORDS SUMMARY | 2025-07-19 11:56 | XMS_ITS | Encounter Summary ---
Author Organization [facility] Address [address] [place] [address] Care Team Providers Care Sport Psychologist Name Role Phone Adithya Gutierrez MD Primary Care Provider [phone] Garrett Veliz MD Unavailable [phone] Kevin Mendez Unavailable Encounter Details Date Type Department Care Team (Late st Contact Info) Description 05/21/2025 Scanned Document [facility] Cardiothoracic Surgery [address] [address] Cardiology, Scan Social History Tobacco [...] on filedocumented in this encounter Care Teams Sport Psychologist Relationship Specialty Start Date End Date Adithya Gutierrez MD [facility] [place] [address] PCP - General Internal Medicine 02/15/25 Garrett Veliz MD [address] [place] [address] Surgery, Cardiac 02/15/25 Kevin Mendez [address] [place] [address] 3[address] [place] [address] 02/15/25 documented as of this encounter
--- OUTSIDE RECORDS SUMMARY | 2025-07-19 11:56 | XMS_ITS | Encounter Summary ---
Author Organization [facility] Address [address] [place] [address] Care Team Providers Care Stone Breaker Name Role Phone Adithya Gutierrez MD Primary Care Provider [phone] Garrett Velzi MD Unavailable [phone] Kevin Mendez Unavailable Encounter Details Date Type Department Care Team (Late st Contact Info) Description 12/21/2024 Scanned Document [facility] Cardiothoracic Surgery [address] [place] [address] Primary Care, Scan Social History Tobacco [...] on filedocumented in this encounter Care Teams Stone Breaker Relationship Specialty Start Date End Date Adithya Gutierrez MD [address] [place] [address] PCP - General Internal Medicine 02/15/25 Garrett Veliz MD [address] [place] [id number] Surgery, Cardiac 02/15/25 Kevin Mednez [address] [place] [address] 3rd [place] [address] 02/15/25 documented as of this encounter
--- OUTSIDE RECORDS SUMMARY | 2025-07-19 11:57 | XMS_ITS | Encounter Summary ---
Author Organization [facility] Address [address] [place] [address] Care Team Providers Care Air Defense Control Officer Name Role Phone Adithya Gutierrez MD Primary Care Provider [phone] Garrett Veliz MD Unavailable [phone] Kevin Mendez Unavailable Encounter Details Date Type Department Care Team (Late st Contact Info) Description 10/18/2024 Scanned Document [facility] Cardiothoracic Surgery [address] [place] [phone] Cardiology, Scan Social History Tobacco Use [...] on filedocumented in this encounter Care Teams Air Defense Control Officer Relationship Specialty Start Date End Date Adithya Gutierrez MD [address] [place] [address] PCP - General Internal Medicine 02/15/25 Garrett Veliz MD [address] [place] [address] Surgery, Cardiac 02/15/25 Kevin Mendez [address] [place] [address] 3[address] [place] [address] 02/15/25 documented as of this encounter
[2025-07-19 12:35] LABS: Anion Gap 12 (12-20); Blood Urea Nitrogen 16 mg/dL (9-16); Calcium 8.7 mg/dL (8.4-10.2); Carbon Dioxide 25 mmol/L (22-29); Chloride 105 mmol/L (96-108); Estimated Glomerular Filt Rate > 60; Potassium 4.0 mmol/L (3.3-5.1); Sodium 138 mmol/L (135-145)
[2025-07-19 12:44] LABS: Carbamazepine Tegretol 6.2 mcg/mL (5.0-12.0)
[2025-07-19 13:06] LABS: White Blood Count 5.1 X10*3/uL (4.8-10.8)
[2025-07-19 13:07] LABS: Platelet Count 179 X10*3/uL (160-400)
== END 2025-07-19 11:15 | disposition home or self-care (01) ==
LOC: HO.LABR 11:14
PROVIDERS: PCP Internal Medicine; Visit Provider Registered Nurse
DX: Z79.899 Other long term (current) drug therapy (principal)
CPT/HCPCS: 36415; 80048; 80156; 85025

== ENCOUNTER 2025-08-02 12:31 | Outpatient (REF) | payer MEDICARE, BC, SELFPAY | END 2025-08-02 12:32 | disposition home or self-care (01) | LOC: HO.LAB 12:31 | PROVIDERS: PCP Internal Medicine; Visit Provider Nurse Practitioner Family | DX: R30.0 Dysuria (principal); Z13.89 Encounter for screening for other disorder | CPT/HCPCS: 81003; 87086; 99212 ==

== ENCOUNTER 2025-08-02 12:31 | Outpatient (AMB) | payer MEDICARE, BC, SELFPAY ==
[2025-08-02 12:36] VITALS: BP 100/60; PULSE 64; TEMP 36.8; O2SAT 96; BMI 45.2
--- NOTE | 2025-08-02 12:36 | MHC.OFFWIV ---
Intake Vital Signs 08/02/25 12:36 Height 5 ft 3 in Weight 255 lb BMI 45.2 BP 100/60 Blood Pressure Location Lt radial Position Sitting Pulse 64 Pulse Source Pulse Oximeter Temp 98.2 F Temp Source Oral Pulse Oximetry (%) 96 Oxygen Delivery Method Room Air Intake Visit Reasons: EP UTI? Intake Note: pt presents with burning pain at the end of voiding Patient Tobacco Use Status: Former Tobacco user Allergies divalproex sodium (From Depakote) Allergy (Mild, Verified 08/02/25 12:41) diarrhea, brain fog gluten Allergy (Mild, Verified 08/02/25 12:41) Unknown hazelnut Allergy (Unknown, Verified 08/02/25 12:41) Unknown shellfish derived Allergy (Unknown, Verified 08/02/25 12:41) Unknown sesame seeds Allergy (Unknown, Uncoded 05/21/25 09:23) Unknown Do you need a note to return to daycare/school/sports/work: No HPI EP UTI? HPI Details This is a 70 year old female patient who presents to the [place] clinic today with her Edis present for c/o occasional burning with urination. She denies any frequency, urgency, or odor to urine. Reports the burning only occurs sometimes, and right at the end of urination. Denies any vaginal symptoms or irritation. Denies any fevers/chills. Needs assistance in the bathroom for wiping following bowel movements, and she reports that at times she is unable to properly clean herself. She also wears panitliners/pads however admits to not changing these as frequently as she should. [facility] Medical History Non-insulin dependent type 2 diabetes mellitus Atrial flutter Bladder cancer Acute blood loss anemia Recurrent UTI Bilateral dacryocystitis Fall Frequency of urination Gait instability UTI (urinary tract infection) Pre-syncope Irritable bowel syndrome with diarrhea Chronic atrial fibrillation Paroxysmal atrial fibrillation C. difficile colitis Morbid obesity due to excess calories Weakness Leg edema Bipolar 1 disorder Vertigo PTSD (post-traumatic stress disorder) History of cardioversion Arthritis Hypothyroidism History of wheezing Diabetes mellitus HTN (hypertension) LBBB (left bundle branch block) PAF (paroxysmal atrial fibrillation) Surgical History History of cardiac cath History of cardiac radiofrequency ablation History of eye surgery Hx of section Hx of colonoscopy Hx of cholecystectomy Hx of arthroscopy of right knee Family History Father No problems noted. Mother No problems noted. Other Mental health disorder Substance use disorder Social History Household Members: Spouse Household Members Other:: daughter + Housing: House Do you presently have visiting nurse or other home services: Yes Alcohol intake: former Comment: feels safe and has a lift at home Patient Tobacco Use Status: Former Tobacco user Tobacco use type: Cigarette e-Cigarette/Vaping Use: Never Used Second Hand Smoke Exposure: No Advance Directives Date on File: 06/29/23 service: No Current occupational status: employed Sexual orientation: Straight/Heterosexual Cognitive needs: No Hearing needs: No Vision needs: Yes Review of Systems Const All systems reviewed & are unremarkable except as noted in HPI and below Physical Exam Vital Signs: Last Vital Signs Temp 98.2 F 08/02/25 12:36 Pulse 64 08/02/25 12:36 BP 100/60 08/02/25 12:36 Pulse Ox 96 08/02/25 12:36 Oxygen Delivery Method Room Air 08/02/25 12:36 BMI result Body Mass Index 45.2 Const General: cooperative, healthy appearing and no acute distress Nutritional Appearance: obese Orientation/consciousness: patient oriented x3 Limitations: wheelchair HEENT Head: Yes normal to inspection Resp Effort & Inspection: normal respiratory effort Auscultation: clear to auscultation bilaterally Cardio Rate: regular rate Rhythm: regular rhythm General: Yes bladder normal to palpation and Yes no CVA tenderness Bimanual exam- vagina & uterus: bladder normal to palpation Back/Spine/Pelvis Back: no CVA tenderness Skin General skin exam: no rashes or lesions noted Neuro General: patient oriented x3 Extrem General: Yes capillary refill normal and Yes no clubbing, cyanosis or edema Psych Appearance: grossly normal Mental Status: mental status grossly normal Speech and movement: Normal speech and movement present Assessment & Plan Assessment & Plan (1) Dysuria: Code(s): R30.0 - Dysuria Plan: Patient having intermittent dysuria. Urine dip is negative. Patient reports this is sometimes how she feels at the start of a UTI. Will send urine off for culture. Advised patient to keep adequately hydrated, and try to fully empty bladder with voiding. We discussed vaginal health and importance of proper cleaning/wiping and frequent changes of emily-pad. She reports looking into purchasing a bidet. She can also use a emily-bottle to help clean herself following using the bathroom. She is going to purchase one in the meantime. We discussed that she will be notified of culture results once available. If she develops any worsening urinary symptoms, she should return to the clinic or PCP for further evaluation. Patient and present at visit both verbalize understanding and agree to plan. Orders: Orders AMB Urinalysis Automated Today Z13.9 - Encounter for screening, unspecified Urine Culture Today R30.0 - Dysuria Coding Level of Care Code Est Pt Level 4 (58699) Diagnoses Dysuria R30.0
--- OUTSIDE RECORDS SUMMARY | 2025-08-02 13:11 | XMS_ITS | Encounter Summary ---
Author Organization [facility] Address [address] [place] [address] Care Team Providers Care Senior Information Systems Architect Name Role Phone Adithya Gutierrez MD Primary Care Provider [phone] Garrett Veliz MD Unavailable Kevin Mendez Unavailable Encounter Details Date Type Department Care Team (Late st Contact Info) Description 12/21/[address] [facility] [place] [place] Cardiothoracic Surgery [address] [place] [phone] Primary Care, Scan Social History Tobacco [...] on filedocumented in this encounter Care Teams Senior Information Systems Architect Relationship Specialty Start Date End Date Adithya Gutierrez MD [address] [place] [address] PCP - General Internal Medicine 02/15/25 Garrett Veliz MD [address] [place] [address] Surgery, Cardiac 02/15/25 Kevin Mendez [address] [place] [address] 3rd [place] [address] 02/15/25 documented as of this encounter
--- OUTSIDE RECORDS SUMMARY | 2025-08-02 13:11 | XMS_ITS | Encounter Summary ---
Author Organization [facility] Address [address] [place] [address] Care Team Providers Care Radar Tester Name Role Phone Adithya Gutierrez MD Primary Care Provider [phone] Garrett Veilz MD Unavailable [phone] Kevin Mendez Unavailable Encounter Details Date Type Department Care Team (Late st Contact Info) Description 02/15/2025 Scanned Document [facility] Cardiothoracic Surgery [address] [place] [phone] Provider, Generic Social History Tobacco Use [...] on filedocumented in this encounter Care Teams Radar Tester Relationship Specialty Start Date End Date Adithya Gutierrez MD [address] [place] [address] PCP - General Internal Medicine 02/15/25 Garrett Veliz MD [address] [place] [address] Surgery, Cardiac 02/15/25 Kevin Mendez [address] [place] [address] 3rd [place] [address] 02/15/25 documented as of this encounter
--- OUTSIDE RECORDS SUMMARY | 2025-08-02 13:11 | XMS_ITS | Clinical Summary ---
Author Organization [facility] Address [address] [place] [address] Care Team Providers Care Drawing Checker Name Role Phone Adithya Gutierrez MD Primary Care Provider [phone] Garrett Veliz MD Unavailable [phone] Kevin Mendez Unavailable Allergies Active Allergy Reactions [...] Description 07/16/2025 3:40 PM EDT Ancillary Procedure [facility] Radiology [address] [place] [address] Provider, File Room 07/05/2025 12:33 PM EDT - 07/05/2025 11:59 PM EDT Hospital Encounter [facility] Radiology [address] [place] [id number] Ischemic cardiomyopathy Discharge Disposition: Home or Self Care 07/05/2025 12:27 PM EDT - 07/05/2025 12:32 PM EDT Hospital Encounter [facility] Radiology [address] [place] [address] Ischemic cardiomyopathy Discharge Disposition: Home or Self Care 07/05/2025 Travel 05/21/2025 Scanned Document [facility] Cardiothoracic Surgery [place] [address] [facility] [address] [place] [address] Cardiology, Scan 05/07/2025 Telephone [facility] Cardiothoracic Surgery [place] [address] [facility] [address] [place] [address] Garrett Veliz MD Appointment from [...] older) 2022 Influenza Vaccine 05/31/2025 COVID-19 Vaccine (2023-2 5 season) 2025 Hepatitis B Vaccines Aged [...] IMG DIGITIZE FILMS Final Resu lt TAN [phone] * MRI Extra Cardiac Interpretation (07/05/2025 2:19 [...] (07/05/2025 2:19 PM EDT) BSA 2.22 m2 [place] Heart Rate 55 bpm [place] Blood Pressure 138/106 mmHG [place] LV Diastolic Volume 108 82 - 162 mL [place] LV Diastolic Index 49 53 - 87 mL/m2 [place] LV Systolic Volume 49 20 - 57 mL [place] LV Systolic Index 22 13 - 31 mL/m2 [place] LVEF 54 60 - 78 % [place] LV stroke volume 59.0 56 - 111 mL [place] LV stroke volume index 26.6 36 - 60 ml/m2 [place] LV cardiac output 3.2 L/min [place] LV cardiac output index 1.46 L/min/m2 [place] LV Mass 86 73 - 145 g [place] LV Mass Index 39 48 - 78 g/m2 [place] Anteroseptal Wall Thickness 9 8 - 10 mm [place] Inferolateral Wall Thickness 8 8 - 10 mm [place] RV Diastolic Volume 100 75 - 160 mL [place] RV Diastolic Index 45 49 - 86 mL/m2 [place] RV Systolic Volume 38 11 - 63 mL [place] RV Systolic Index 17 8 - 34 mL/m2 [place] Rest RVEF 62 57 - 81 % [place] LA Volume Index 32 mL/m2 [place] RA Volume Index 21 mL/m2 [place] Aortic root Sinuses of Valsalva 29 25 - 35 mm [place] Mid-ascending aorta 30 27 - 35 mm [place] Descending aorta 25 20 - 28 mm [place] Main pulmonary artery dimension 27 mm [place] Pulmonary flow (Qp) 60 mL per beat [place] Systemic flow (Qs) 47 mL per beat [place] LA volume 70 mL [place]AN RA volume 47 mL [place] Aortic root Sinuses of Valsalva index 13 mm/m2 [place] Mid-ascending aorta index 14 mm/m2 [place] Descending aorta index 11 mm/m2 [place] Qp:Qs ratio 1.28 [place] Anatomical Region Laterality Modality Heart Magnetic Resonan [...] and without contrast was performed on 1.5T [employer] scanner. Imaging sequences included black blood axial [...] Parametric Imaging Parametric imaging (normal values): Elevated [place] myocardial T1, suggestive of infiltrative disease. Global T1 relaxation time: 1017+/-71 ms (950-1000 ms) Global ECV is elevated at 35%, suggestive of microscopic interstitial fibrosis. Normal [place] myocardial T2. Global T2 relaxation time: 55+/-2 ms (50-55 ms) Normal myocardial T2*. No evidence of iron overload. T2* relaxation time: 40+/-0.8 ms Galo Montaño PA-C IMG MRI ORDERABLES Final Re sult * Hematocrit (07/05/2025 12:33 PM EDT) Hematocrit 38.0 35.0 - 47.0 % 07/05/2025 2:35 PM EDT [facility] Blood Blood specimen / Unknown 07/05/2025 12:33 PM EDT 07/05/2025 2:27 PM EDT us Margot Wan MD LAB BLOOD ORDERABLES Final Resul t [address] [address], [address] [id number] from Last 3 Months Insurance MEDICARE PART A & B [facility] [employer] [facility] Care Teams Drawing Checker Relationship Specialty Start Date End Date Adithya Gutierrez MD [address] [place] [address] PCP - General Internal Medicine 02/15/25 Garrett Veliz MD [address] [place] [id number] Surgery, Cardiac 02/15/25 Kevin Mendez [address] [place] [address] [address] [place] [address] 02/15/25
--- OUTSIDE RECORDS SUMMARY | 2025-08-02 13:11 | XMS_ITS | Encounter Summary ---
Author Organization [facility] Address [address] [place] [address] Care Team Providers Care Deputy Controller Name Role Phone Adithya Gutierrez MD Primary Care Provider [phone] Garrett Veliz MD Unavailable [phone] Kevin Mendez Unavailable Encounter Details Date Type Department Care Team (Late st Contact Info) Description 10/18/2024 Scanned Document [facility] Cardiothoracic Surgery [address] [place] [phone] Cardiology, Scan Social History Tobacco Use [...] on filedocumented in this encounter Care Teams Deputy Controller Relationship Specialty Start Date End Date Adithya Gutierrez MD [address] [place] [address] PCP - General Internal Medicine 02/15/25 Garrett Veliz MD [address] [place] [id number] Surgery, Cardiac 02/15/25 Kevin Mendez [address] [place] [address] [address] [place] [address] 02/15/25 documented as of this encounter
--- OUTSIDE RECORDS SUMMARY | 2025-08-02 13:11 | XMS_ITS | Encounter Summary ---
Author Organization [facility] Address [address] [place] [address] Care Team Providers Care Assistant To The Director Name Role Phone Adithya Gutierrez MD Primary Care Provider [phone] Garrett Veliz MD Unavailable Kevin Mendez Unavailable Encounter Details Date Type Department Care Team (Late st Contact Info) Description 01/27/2025 Scanned Document [facility] Cardiothoracic Surgery [address] [address] Cardiology, Scan Social History Tobacco [...] on filedocumented in this encounter Care Teams Assistant To The Director Relationship Specialty Start Date End Date Adithya Gutierrez MD [facility] [place] [address] PCP - General Internal Medicine 02/15/25 Garrett Veliz MD [address] [place] [id number] Surgery, Cardiac 02/15/25 Kevin Mendez [address] [place] [address] 3[address] [place] [address] 02/15/25 documented as of this encounter
--- OUTSIDE RECORDS SUMMARY | 2025-08-02 13:11 | XMS_ITS | Encounter Summary ---
Author Organization [facility] Address [address] [place] [address] Care Team Providers Care Supervisor Tunnel Heading Name Role Phone Adithya Gutierrez MD Primary Care Provider Garrett Veliz MD Unavailable [phone] Kevin Mendez Unavailable Encounter Details Date Type Department Care Team (Late st Contact Info) Description 05/21/2025 Scanned Document [facility] Cardiothoracic Surgery [address] [address] Cardiology, Scan Social History Tobacco [...] on filedocumented in this encounter Care Teams Supervisor Tunnel Heading Relationship Specialty Start Date End Date Adithya Gutierrez MD [facility] [place] [address] PCP - General Internal Medicine 02/15/25 Garrett Veliz MD [address] [place] [address] Surgery, Cardiac 02/15/25 Kevin Mendez [address] [place] [address] [address] [place] [address] 02/15/25 documented as of this encounter
--- OUTSIDE RECORDS SUMMARY | 2025-08-02 13:11 | XMS_ITS | Encounter Summary ---
Author Organization [facility] Address [address] [place] [address] Care Team Providers Care Buttoner Name Role Phone Adithya Gutierrez MD Primary Care Provider Garrett Veliz MD Unavailable [phone] Kevin Mendez Unavailable Encounter Details Date Type Department Care Team (Late st Contact Info) Description 01/01/2025 Scanned Document [facility] Cardiothoracic Surgery [address] [place] [phone] Cardiology, Scan Social History Tobacco Use [...] on filedocumented in this encounter Care Teams Buttoner Relationship Specialty Start Date End Date Adithya Gutierrez MD [address] [place] [address] PCP - General Internal Medicine 02/15/25 Garrett Veliz MD [address] [place] [id number] Surgery, Cardiac 02/15/25 Kevin Mendez [address] [place] [address] 3[address] [place] [address] 02/15/25 documented as of this encounter
== END 2025-08-02 13:32 | disposition home or self-care (01) ==
PROVIDERS: PCP Internal Medicine; Visit Provider Nurse Practitioner Family
DX: R30.0 Dysuria (principal); Z13.9 Encounter for screening, unspecified

== ENCOUNTER 2025-09-13 14:01 | Outpatient (AMB) | payer MEDICARE, BC, SELFPAY ==
--- NOTE | 2025-09-13 14:04 | MHC.PC.OV ---
Vital Signs 09/13/25 14:05 Height 5 ft 3 in Weight 258 lb BMI 45.7 BP 120/72 Blood Pressure Location Lt brachial Position Sitting Pulse 62 Pulse Source Pulse Oximeter Pulse Oximetry (%) 96 Intake Visit Reasons: 4m follow up Allergies divalproex sodium (From Depakote) Allergy (Mild, Verified 09/13/25 14:05) diarrhea, brain fog gluten Allergy (Mild, Verified 09/13/25 14:05) Unknown hazelnut Allergy (Unknown, Verified 09/13/25 14:05) Unknown shellfish derived Allergy (Unknown, Verified 09/13/25 14:05) Unknown sesame seeds Allergy (Unknown, Uncoded 05/21/25 09:23) Unknown Medication List - Last Reconciled 09/13/25 by Adithya Gutierrez MD amiodarone 200 mg PO DAILY artificial tears solution 1 drp ophthalmic (eye) TID ascorbic acid (vitamin C) (Vitamin C) 250 mg PO DAILY carbamazepine 200 mg PO BID cholecalciferol (vitamin D3) 25 mcg PO DAILY clotrimazole-betamethasone 1-0.05 % 1 appl topical ONCE 30 days dextrose 40% (Glutose-15) 15 grams See Protocol PO Q15M PRN furosemide 40 mg See Protocol PO DAILY glipizide 5 mg PO DAILY insulin lispro (Admelog SoloStar U-100 Insulin lispro) 1 sliding scale dose subcut QIDACHS MDD 30 units levothyroxine 150 mcg PO DAILY@0600 lurasidone 60 mg PO DAILY metoprolol tartrate 50 mg PO BID nystatin 1 appl topical DAILY 30 days pen needle, diabetic As directed to inject insulin up to 4 times per day quetiapine 150 mg PO BEDTIME rivaroxaban (Xarelto) 20 mg PO QPM sacubitril-valsartan 24-26 mg (Entresto) 1 tab See Protocol PO BID spironolactone 25 mg See Protocol PO DAILY trazodone 150 mg PO BEDTIME Tobacco use date assessed: 01/10/25 Fall risk assessment: No Falls in past year Last assessed Fall Risk: 09/13/25 Dental Screening Dental Screen Date: 01/10/25 HPI 4m follow up HPI Details History of Present Illness The patient is a 70-year-old female presenting for a 4-month follow-up appointment for chronic condition management Postmenopausal bleeding: - The patient reports experiencing some vaginal bleeding for the last two weeks, which is observed on her pad and is not associated with urination. - She also notes having significant hemorrhoids that can sometimes bleed and questions if this could be the source. Bladder cancer: - The patient has a history of bladder cancer, for which a tumor was removed on July 07. - She was re-hospitalized the next day for significant bleeding, which required re-cauterization of the surgical site. - Her last urology appointment with Dr. Matute at [facility] last visit was in December, and she does not have a current follow-up scheduled. Diabetes mellitus: - The patient has a history of diabetes mellitus, with a hemoglobin A1c of 7.8% in April. - She uses a continuous glucose monitoring sensor and reports that her sugars typically range from 130 to 175 mg/dL. - Her blood sugar will occasionally rise to around 300 at night, about once or twice a week, which she attributes to eating sweets. - The patient is on a short-acting sliding scale insulin pen but states she rarely needs to use it because her pre-meal glucose levels are usually low. - She reports issues with the CGM sensors being faulty at times. Atrial fibrillation: - The patient has a history of atrial fibrillation and is on chronic anticoagulation. - She is established with a violin teacher and has an appointment scheduled for the . Bipolar disorder: - The patient has a history of bipolar disorder and is established with psychiatry at [facility], where she also sees a therapist. and Psych - She reports her mood is currently okay. Medical History: - Frequent urinary tract infections - Myocardial infarction (this year) - Insomnia - Diabetes mellitus - Hypothyroidism - Bipolar disorder - Multiple food allergies - Atrial fibrillation, on chronic anticoagulation - Osteoarthritis of multiple joints - History of recurrent falls - History of bladder cancer - Hemorrhoids - Yeast infections Surgical History: - Bladder tumor removal on July 07, 2024 - Re-cauterization of bladder surgical site on July 08, 2024, for postoperative bleeding Medications: - Trazodone for insomnia - Amiodarone 200 mg - Levothyroxine 150 mcg for hypothyroidism - Quetiapine - Lurasidone 60 mg - Tramadol pads for osteoarthritis - Sliding scale short-acting insulin pen for diabetes Social History: - The patient lives with her family. - Her daughter, Fernanda Perry, is her healthcare proxy. - Functional Status: Ambulates with the help of a walker, although she admits to not using it recently. - Behavioral Health: Receives psychiatric care and sees a therapist at [facility]. - Diet: Acknowledges eating sweets, which contributes to elevated blood glucose levels. - Vaccinations: Declines the flu vaccine. - Exercise: Reports limited walking and has not been using her walker. Diagnostic Results: - Labs from July: CBC showed a stable hemoglobin of 11.4; electrolytes were normal, and kidney function was intact. - Labs from April: Hemoglobin A1c was 7.8%. - In-office testing today: Hemoglobin A1c is 8.6%. - A recent blood glucose reading was 234 mg/dL. Problem List - Diabetes mellitus - Postmenopausal bleeding - Bladder cancer, history of - Atrial fibrillation - Bipolar disorder - Hypothyroidism - Insomnia - Recurrent urinary tract infections - Myocardial infarction, history of - Osteoarthritis - Recurrent falls, history of - Multiple food allergies - Hemorrhoids - Yeast infections recurrent Plan - The patient was instructed to schedule a follow-up appointment with her urologist, Dr. Matute, to investigate the recent vaginal bleeding, given her history of bladder cancer and recurrent UTIs. - Regarding her diabetes, the patient was counseled on the importance of dietary control, specifically reducing her intake of sweets, due to a current HbA1c of 8.6%. - She will continue her sliding scale insulin, with the option to give 4 units if her blood sugar exceeds 300 at night and does not self-correct. - Her hemoglobin A1c will be rechecked in 3 months. - The patient was advised to make an effort to walk more with her walker and perform seated exercises to maintain muscle strength. - Labs will be repeated in 3 months. - The patient will follow up with her violin teacher on the . - The patient declined the flu vaccine. f/u 3 M Review of Systems - General: No fever no chills - Neurological: No headaches no dizziness - Ear nose throat: No sore throat no hearing difficulty no ear pain - Cardiovascular: No syncope, no chest pain, no palpitations - Gastrointestinal: No nausea vomiting or diarrhea Physical Exam General: No acute distress, sitting in wheel chair HEENT: No acute findings Neck: Supple Respiratory system: Able to talk in full sentences, no audible wheeze Cardiovascular: S1-S2 regular in rate and rhythm, blood pressure well controlled at 120/72 Gastrointestinal: No pain Extremities: No new findings HOME CARE ASSOCIATE: Alert awake oriented x3 motor intact Skin: Normal turgor PFSH Medical History Non-insulin dependent type 2 diabetes mellitus Atrial flutter Bladder cancer Acute blood loss anemia Recurrent UTI Bilateral dacryocystitis Fall Frequency of urination Gait instability UTI (urinary tract infection) Pre-syncope Irritable bowel syndrome with diarrhea Chronic atrial fibrillation Paroxysmal atrial fibrillation C. difficile colitis Morbid obesity due to excess calories Weakness Leg edema Bipolar 1 disorder Vertigo PTSD (post-traumatic stress disorder) History of cardioversion Arthritis Hypothyroidism History of wheezing Diabetes mellitus HTN (hypertension) LBBB (left bundle branch block) PAF (paroxysmal atrial fibrillation) Surgical History History of cardiac cath History of cardiac radiofrequency ablation History of eye surgery Hx of section Hx of colonoscopy Hx of cholecystectomy Hx of arthroscopy of right knee Family History Father No problems noted. Mother No problems noted. Other Mental health disorder Substance use disorder Social History Household Members: Spouse Household Members Other:: daughter + Housing: House Do you presently have visiting nurse or other home services: Yes Alcohol intake: former Comment: feels safe and has a lift at home Patient Tobacco Use Status: Former Tobacco user Tobacco use type: Cigarette e-Cigarette/Vaping Use: Never Used Second Hand Smoke Exposure: No Advance Directives Date on File: 06/29/23 service: No Current occupational status: employed Sexual orientation: Straight/Heterosexual Cognitive needs: No Hearing needs: No Vision needs: Yes Questionnaire Thrive Questionnaire Date Thrive assessed: 09/13/25 I am a: Parent/Caregiver What is your living situation today?: I have a steady place to live Within the past 12 months, did the food you bought not last and you didn't have the money to get more?: Never true Within the past 12 months, did you worry whether your food would run out before you got money to buy more?: Never true Do you have trouble paying for medicines?: No Do you have trouble getting transportation to medical appointments?: No Do you have trouble paying your heating and electricity bill?: No Do you have trouble taking care of your child, family member or friend?: No Do you have trouble with day-to-day activities such as bathing, preparing meals, shopping, managing finances, etc.?: No Are you currently unemployed and looking for a job?: No Are you interested in more education?: No Please select the resources that you would like help with: None Currently or been in a relationship where the following occur: No concerns reported THRIVE Score: 0 ZAID-7 AMB Questionnaire ZAID-7 Date ZAID - 7 assessed: 09/13/25 Feeling nervous, anxious, or on edge: 0 = Not at all Not being able to stop or control worryin = Not at all Worrying too much about different things: 0 = Not at all Trouble relaxin = Not at all Being so restless that it is hard to sit still: 0 = Not at all Becoming easily annoyed or irritable: 0 = Not at all Feeling afraid as if something awful might happen: 0 = Not at all Total ZAID-7 score (0-4 normal; 5-9 mild; 10-14 moderate; 15-21 severe): 0 Source: Developed by Drs. Galo Triplett, Lavenr Israel, Darion Jarvis and colleagues, with an educational lisette from [employer]. ZAID-7 Assessment Billing ZAID-7 Assessment Tool: ZAID-7 Assessment 67210 Physical exam (Primary Care) Vital Signs: Last Vital Signs Pulse 62 09/13/25 14:05 BP 120/72 09/13/25 14:05 Pulse Ox 96 09/13/25 14:05 BMI result Body Mass Index 45.7 Tobacco/Smoking Status: Tobacco use Status Tobacco use date assessed 01/10/25 09/13/25 14:08 Patient Tobacco Use Status Former Tobacco user 09/13/25 14:08 Tobacco use type Cigarette 09/13/25 14:08 e-Cigarette/Vaping Use Never Used 09/13/25 14:08 Thrive Assessment: Date of Thrive Assessment Date Thrive assessed 09/13/25 09/13/25 14:08 Currently or been in a relationship where the following occur: No concerns reported Results AMB Hemoglobin A1c AMB Hemoglobin A1c 8.6 % Last Edit by Elian Zuñiga CMA on 09/13/25 14:33 Results Reviewed Results Reviewed: Laboratory Last Values Hgb A1c (Clinic) 8.6 % (4.0-6.0) H 09/13/25 14:31 Coding Level of Care Code Est Pt Level 5 (96890) Diagnoses Type 2 diabetes mellitus with diabetic neuropathy, without long-term current use of insulin E11.40 Diabetes mellitus complication detail: with unspecified neuropathy Diabetes mellitus complication status: with neurologic complications Diabetes mellitus shelter insulin use: without local intermodal truck driver use Diabetes mellitus type: type 2 Primary hypertension I10 Hypertension type: primary hypertension Chronic combined systolic and diastolic congestive heart failure I50.42 Permanent atrial fibrillation I48.21 Other specified hypothyroidism E03.8 Difficulty sleeping G47.9 Chronic anticoagulation Z79.01 Coarse tremors G25.2 Vitamin D deficiency E55.9 Recurrent falls R29.6 External bleeding hemorrhoids K64.4 Malignant neoplasm of urinary bladder, unspecified site C67.9 Bladder location: unspecified site Additional Codes ZAID-7 Assessment Billing - ZAID-7 Assessment Tool: ZAID-7 Assessment 25657 ([id number]) Time Spent (min) 41 Comment review chart / urology note/ face to face and patient, coordination of care Assessment & Plan Assessment & Plan (1) Diabetes mellitus: Comment: Diet controlled Code(s): E11.9 - Type 2 diabetes mellitus without complications Category: Medical Qualifiers: Diabetes mellitus complication detail: with unspecified neuropathy Diabetes mellitus complication status: with neurologic complications Diabetes mellitus local intermodal truck driver insulin use: without local intermodal truck driver use Diabetes mellitus type: type 2 Qualified Code(s): E11.40 - Type 2 diabetes mellitus with diabetic neuropathy, unspecified (2) HTN (hypertension): Comment: As above Code(s): I10 - Essential (primary) hypertension Category: Medical Qualifiers: Hypertension type: primary hypertension Qualified Code(s): I10 - Essential (primary) hypertension (3) Chronic combined systolic and diastolic congestive heart failure: Code(s): I50.42 - Chronic combined systolic (congestive) and diastolic (congestive) heart failure Category: Medical (4) Permanent atrial fibrillation: Code(s): I48.21 - Permanent atrial fibrillation Category: Medical (5) Other specified hypothyroidism: Code(s): E03.8 - Other specified hypothyroidism Category: Medical (6) Difficulty sleeping: Code(s): G47.9 - Sleep disorder, unspecified Category: Medical (7) Chronic anticoagulation: Code(s): Z79.01 - local 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 truck driver (current) use of anticoagulants Category: Medical (8) Coarse tremors: Code(s): G25.2 - Other specified forms of tremor Category: Medical (9) Vitamin D deficiency: Code(s): E55.9 - Vitamin D deficiency, unspecified Category: Medical (10) Recurrent falls: Code(s): R29.6 - Repeated falls Category: Medical (11) External bleeding hemorrhoids: Code(s): K64.4 - Residual hemorrhoidal skin tags Category: Medical (12) Bladder cancer: Code(s): C67.9 - Malignant neoplasm of bladder, unspecified Category: Medical Qualifiers: Bladder location: unspecified site Qualified Code(s): C67.9 - Malignant neoplasm of bladder, unspecified Plan Postmenopausal bleeding: - The patient reports experiencing some vaginal bleeding for the last two weeks, which is observed on her pad and is not associated with urination. - She also notes having significant hemorrhoids that can sometimes bleed and questions if this could be the source. Bladder cancer: - The patient has a history of bladder cancer, for which a tumor was removed on July 07. - She was re-hospitalized the next day for significant bleeding, which required re-cauterization of the surgical site. - Her last urology appointment with Dr. Matute at [facility] last visit was in December, and she does not have a current follow-up scheduled. Diabetes mellitus: - The patient has a history of diabetes mellitus, with a hemoglobin A1c of 7.8% in April. - She uses a continuous glucose monitoring sensor and reports that her sugars typically range from 130 to 175 mg/dL. - Her blood sugar will occasionally rise to around 300 at night, about once or twice a week, which she attributes to eating sweets. - The patient is on a short-acting sliding scale insulin pen but states she rarely needs to use it because her pre-meal glucose levels are usually low. - She reports issues with the CGM sensors being faulty at times. Atrial fibrillation: - The patient has a history of atrial fibrillation and is on chronic anticoagulation. - She is established with a violin teacher and has an appointment scheduled for the . Bipolar disorder: - The patient has a history of bipolar disorder and is established with psychiatry at [facility], where she also sees a therapist. and Psych - She reports her mood is currently okay. Medical History: - Frequent urinary tract infections - Myocardial infarction (this year) - Insomnia - Diabetes mellitus - Hypothyroidism - Bipolar disorder - Multiple food allergies - Atrial fibrillation, on chronic anticoagulation - Osteoarthritis of multiple joints - History of recurrent falls - History of bladder cancer - Hemorrhoids - Yeast infections Surgical History: - Bladder tumor removal on July 07, 2024 - Re-cauterization of bladder surgical site on July 08, 2024, for postoperative bleeding Medications: - Trazodone for insomnia - Amiodarone 200 mg - Levothyroxine 150 mcg for hypothyroidism - Quetiapine - Lurasidone 60 mg - Tramadol pads for osteoarthritis - Sliding scale short-acting insulin pen for diabetes Social History: - The patient lives with her family. - Her daughter, Fernanda Perry, is her healthcare proxy. - Functional Status: Ambulates with the help of a walker, although she admits to not using it recently. - Behavioral Health: Receives psychiatric care and sees a therapist at [facility]. - Diet: Acknowledges eating sweets, which contributes to elevated blood glucose levels. - Vaccinations: Declines the flu vaccine. - Exercise: Reports limited walking and has not been using her walker. Diagnostic Results: - Labs from July: CBC showed a stable hemoglobin of 11.4; electrolytes were normal, and kidney function was intact. - Labs from April: Hemoglobin A1c was 7.8%. - In-office testing today: Hemoglobin A1c is 8.6%. - A recent blood glucose reading was 234 mg/dL. Problem List - Diabetes mellitus - Postmenopausal bleeding - Bladder cancer, history of - Atrial fibrillation - Bipolar disorder - Hypothyroidism - Insomnia - Recurrent urinary tract infections - Myocardial infarction, history of - Osteoarthritis - Recurrent falls, history of - Multiple food allergies - Hemorrhoids - Yeast infections recurrent Plan - The patient was instructed to schedule a follow-up appointment with her urologist, Dr. Matute, to investigate the recent vaginal bleeding, given her history of bladder cancer and recurrent UTIs. - Regarding her diabetes, the patient was counseled on the importance of dietary control, specifically reducing her intake of sweets, due to a current HbA1c of 8.6%. - She will continue her sliding scale insulin, with the option to give 4 units if her blood sugar exceeds 300 at night and does not self-correct. - Her hemoglobin A1c will be rechecked in 3 months. - The patient was advised to make an effort to walk more with her walker and perform seated exercises to maintain muscle strength. - Labs will be repeated in 3 months. - The patient will follow up with her violin teacher on the . - The patient declined the flu vaccine. 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 (current) use of anticoagulants Complete Blood Count Auto Diff 3 Months E03.8 - Other specified hypothyroidism, E11.40 - Type 2 diabetes mellitus with diabetic neuropathy, unspecified, E55.9 - Vitamin D deficiency, unspecified, G25.2 - Other specified forms of tremor, G47.9 - Sleep disorder, unspecified, I10 - Essential (primary) hypertension, I48.21 - Permanent atrial fibrillation, I50.42 - Chronic combined systolic (congestive) and diastolic (congestive) heart failure, M16.12 - Unilateral primary osteoarthritis, left hip, R29.6 - Repeated falls, Z79.01 - 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 (current) use of anticoagulants TSH reflex Free T4 3 Months E03.8 - Other specified hypothyroidism, E11.40 - Type 2 diabetes mellitus with diabetic neuropathy, unspecified, E55.9 - Vitamin D deficiency, unspecified, G25.2 - Other specified forms of tremor, G47.9 - Sleep disorder, unspecified, I10 - Essential (primary) hypertension, I48.21 - Permanent atrial fibrillation, I50.42 - Chronic combined systolic (congestive) and diastolic (congestive) heart failure, M16.12 - Unilateral primary osteoarthritis, left hip, R29.6 - Repeated falls, Z79.01 - local 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 truck driver (current) use of anticoagulants LDL Cholesterol Direct 3 Months E03.8 - Other specified hypothyroidism, E11.40 - Type 2 diabetes mellitus with diabetic neuropathy, unspecified, E55.9 - Vitamin D deficiency, unspecified, G25.2 - Other specified forms of tremor, G47.9 - Sleep disorder, unspecified, I10 - Essential (primary) hypertension, I48.21 - Permanent atrial fibrillation, I50.42 - Chronic combined systolic (congestive) and diastolic (congestive) heart failure, M16.12 - Unilateral primary osteoarthritis, left hip, R29.6 - Repeated falls, Z79.01 - local 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
[2025-09-13 14:05] VITALS: BP 120/72; PULSE 62; O2SAT 96; BMI 45.7
== END 2025-09-13 14:33 | disposition home or self-care (01) ==
LOC: HO.HMCC 14:02
PROVIDERS: PCP Internal Medicine; Visit Provider Internal Medicine
DX: E11.40 Type 2 diabetes mellitus with diabetic neuropathy, unspecified (principal); I10 Essential (primary) hypertension; I50.42 Chronic combined systolic (congestive) and diastolic (congestive) heart failure; I48.21 Permanent atrial fibrillation; C67.9 Malignant neoplasm of bladder, unspecified; E03.8 Other specified hypothyroidism; G47.9 Sleep disorder, unspecified; Z79.01 Long term (current) use of anticoagulants; G25.2 Other specified forms of tremor; E55.9 Vitamin D deficiency, unspecified; R29.6 Repeated falls; K64.4 Residual hemorrhoidal skin tags

== ENCOUNTER → 2025-09-13 14:01 | Outpatient (BNVA) | payer MEDICARE, BC, SELFPAY | PROVIDERS: PCP Internal Medicine; Visit Provider Internal Medicine | DX: N95.0 Postmenopausal bleeding (principal); I48.91 Unspecified atrial fibrillation; F31.9 Bipolar disorder, unspecified; E11.40 Type 2 diabetes mellitus with diabetic neuropathy, unspecified; I11.0 Hypertensive heart disease with heart failure; I50.42 Chronic combined systolic (congestive) and diastolic (congestive) heart failure; I48.21 Permanent atrial fibrillation; E03.8 Other specified hypothyroidism; G47.9 Sleep disorder, unspecified; G25.2 Other specified forms of tremor; E55.9 Vitamin D deficiency, unspecified; R29.6 Repeated falls; K64.4 Residual hemorrhoidal skin tags; C67.9 Malignant neoplasm of bladder, unspecified; Z85.51 Personal history of malignant neoplasm of bladder; Z79.01 Long term (current) use of anticoagulants | CPT/HCPCS: 83036; 96127; 99212 ==

== ENCOUNTER 2025-09-17 13:10 | Outpatient (REF) | payer MEDICARE, BC, SELFPAY ==
[2025-09-17 14:05] LABS: Appearance Urine Clear; Glucose Urine UA 100 mg/dL (Negative); PH 5.0 (5.0-9.0); Specific Gravity - Urine 1.010 (1.005-1.025); UMIC TRIGGER UA YES
--- OUTSIDE RECORDS SUMMARY | 2025-09-18 05:23 | XMS_ITS | Clinical Summary ---
Author Organization [facility] Address [address] [place] [address] Care Team Providers Care Supplier Quality Manager Name Role Phone Adithya Gutierrez MD Primary Care Provider [phone] Garrett Veliz MD Unavailable [phone] Kevin Mendez Unavailable Allergies Active Allergy Reactions [...] Description 07/16/2025 3:40 PM EDT Ancillary Procedure [facility] [address] [place] [address] Provider, File Room 07/05/2025 12:33 PM EDT - 07/05/2025 11:59 PM EDT Hospital Encounter [facility] [address] [place] [phone] Ischemic cardiomyopathy Discharge Disposition: Home or Self Care 07/05/2025 12:27 PM EDT - 07/05/2025 12:32 PM EDT Hospital Encounter [facility] [address] [place] [address] Ischemic cardiomyopathy Discharge Disposition: Home or Self Care 07/05/2025 Travel from Last 3 Months Social History Tobacco [...] - PCV) 1976 Mammogram 1997 Colonoscopy 2002 RSV Vaccine 50 years and old er and Patients (1 - Risk 50-74 years 1-dose series) 2007 Zoster (Shingles) Vaccine (1 of 2) 2007 DXA Bone Density (Females,Ag es 65 and older) 2022 Influenza Vaccine 05/31/2025 COVID-19 Vaccine ( - 2023-2 5 season) 2025 Hepatitis B Vaccines [...] IMG DIGITIZE FILMS Final Resu lt TAN [phone] * MRI Extra Cardiac Interpretation (07/05/2025 2:19 [...] (07/05/2025 2:19 PM EDT) BSA 2.22 m2 [place] Heart Rate 55 bpm [place] Blood Pressure 138/106 mmHG [place] LV Diastolic Volume 108 82 - 162 mL [place] LV Diastolic Index 49 53 - 87 mL/m2 [place] LV Systolic Volume 49 20 - 57 mL [place] LV Systolic Index 22 13 - 31 mL/m2 [place] LVEF 54 60 - 78 % [place] LV stroke volume 59.0 56 - 111 mL [place] LV stroke volume index 26.6 36 - 60 ml/m2 [place] LV cardiac output 3.2 L/min [place] LV cardiac output index 1.46 L/min/m2 [place] LV Mass 86 73 - 145 g [place] LV Mass Index 39 48 - 78 g/m2 [place] Anteroseptal Wall Thickness 9 8 - 10 mm [place] Inferolateral Wall Thickness 8 8 - 10 mm [place] RV Diastolic Volume 100 75 - 160 mL [place] RV Diastolic Index 45 49 - 86 mL/m2 [place] RV Systolic Volume 38 11 - 63 mL [place] RV Systolic Index 17 8 - 34 mL/m2 [place] Rest RVEF 62 57 - 81 % [place] LA Volume Index 32 mL/m2 [place] RA Volume Index 21 mL/m2 [place] Aortic root Sinuses of Valsalva 29 25 - 35 mm [place] Mid-ascending aorta 30 27 - 35 mm [place] Descending aorta 25 20 - 28 mm [place] Main pulmonary artery dimension 27 mm [place] Pulmonary flow (Qp) 60 mL per beat [place] Systemic flow (Qs) 47 mL per beat [place] LA volume 70 mL [place] RA volume 47 mL [place] Aortic root Sinuses of Valsalva index 13 mm/m2 [place] Mid-ascending aorta index 14 mm/m2 [place] Descending aorta index 11 mm/m2 [place] Qp:Qs ratio 1.28 [place] Anatomical Region Laterality Modality Heart Magnetic Resonan [...] and without contrast was performed on 1.5T [employer] scanner. Imaging sequences included black blood axial [...] Parametric Imaging Parametric imaging (normal values): Elevated chippewa-cree myocardial T1, suggestive of infiltrative disease. Global T1 relaxation time: 1017+/-71 ms (950-1000 ms) Global ECV is elevated at 35%, suggestive of microscopic interstitial fibrosis. Normal chippewa-cree myocardial T2. Global T2 relaxation time: 55+/-2 ms (50-55 ms) Normal myocardial T2*. No evidence of iron overload. T2* relaxation time: 40+/-0.8 ms Galo Montaño PA-C IMG MRI ORDERABLES Final Re sult * Hematocrit (07/05/2025 12:33 PM EDT) Hematocrit 38.0 35.0 - 47.0 % 07/05/2025 2:35 PM EDT [facility] Blood Blood specimen / Unknown 07/05/2025 12:33 PM EDT 07/05/2025 2:27 PM EDT Margot Wan MD LAB BLOOD ORDERABLES Final Resul t [address] [address], [address] [address] from Last 3 Months Insurance MEDICARE PART A & B [employer] Care Teams Supplier Quality Manager Relationship Specialty Start Date End Date Adithya Gutierrez MD [address] [place] [address] PCP - General Internal Medicine 02/15/25 Garrett Veliz MD [address] [place] [address] Surgery, Cardiac 02/15/25 Kevin Mendez [facility] 3rd [place] [address] 02/15/25
--- OUTSIDE RECORDS SUMMARY | 2025-09-18 05:23 | XMS_ITS | Encounter Summary ---
Author Organization [facility] Address [address] [place] [address] Care Team Providers Care Seed Expert Name Role Phone Adithya Gutierrez MD Primary Care Provider [phone] Garrett Veliz MD Unavailable [phone] Kevin Mendez Unavailable Encounter Details Date Type Department Care Team (Late st Contact Info) Description 05/21/[address] [facility] Cardiothoracic Surgery [address] [phone] Cardiology, Scan Social History Tobacco [...] on filedocumented in this encounter Care Teams Seed Expert Relationship Specialty Start Date End Date Adithya Gutierrez MD [facility] [place] [address] PCP - General Internal Medicine 02/15/25 Garrett Veliz MD [address] [place] [address] Surgery, Cardiac 02/15/25 Kevin Mendez [address] [place] [address] 3rd [place] [address] 02/15/25 documented as of this encounter
--- OUTSIDE RECORDS SUMMARY | 2025-09-18 05:23 | XMS_ITS | Encounter Summary ---
Author Organization [facility] Address [address] [place] [address] Care Team Providers Care Division Leader Name Role Phone Adithya Gutierrez MD Primary Care Provider [phone] Garrett Veliz MD Unavailable [phone] Kevin Mendez Unavailable Encounter Details Date Type Department Care Team (Late st Contact Info) Description 02/15/2025 Scanned Document [facility] Cardiothoracic Surgery [address] [place] [phone] Provider, Generic Social History Tobacco Use [...] on filedocumented in this encounter Care Teams Division Leader Relationship Specialty Start Date End Date Adithya Gutierrez MD [address] [place] [address] PCP - General Internal Medicine 02/15/25 Garrett Veliz MD [address] [place] [address] Surgery, Cardiac 02/15/25 Kevin Mendez [address] [place] [address] 3rd [place] [address] 02/15/25 documented as of this encounter
--- OUTSIDE RECORDS SUMMARY | 2025-09-18 05:24 | XMS_ITS | Patient Health Record ---
Author Organization [facility] Address [address] [place] [address] Care Team Providers Care Oil Well Drilling Manager Name Role Phone Matt MENDOZA, Asma Primary Care Provider Danny Uribe Jr Unavailable Reason For Referral No Information Plan Of Treatment No Information Insurance Providers Payer Name Payer Address Payer Phone Subscriber Number Group Number Insured Name Patient Relationship to Insured Coverage Start Date Coverage End Date MEDICARE OF [place] [address] [place] [address] [phone] [id number] MATT HUIZAR Self - patient is the insured [facility] [address] [place] [address] [phone] [id number] MATT HUIZAR Self - patient is the insured
--- OUTSIDE RECORDS SUMMARY | 2025-09-18 05:24 | XMS_ITS | Encounter Summary ---
Author Organization [facility] Address [address] [place] [address] Care Team Providers Care Nutritional Assistant Name Role Phone Adithya Gutierrez MD Primary Care Provider Garrett Veliz MD Unavailable [phone] Kevin Mendez Unavailable Encounter Details Date Type Department Care Team (Late st Contact Info) Description 01/27/2025 Scanned Document [facility] Cardiothoracic Surgery [address] [phone] Cardiology, Scan Social History Tobacco [...] on filedocumented in this encounter Care Teams Nutritional Assistant Relationship Specialty Start Date End Date Adithya Gutierrez MD [facility] [place] [address] PCP - General Internal Medicine 02/15/25 Garrett Veliz MD [address] [place] [address] Surgery, Cardiac 02/15/25 Kevin Mendez [address] [place] [address] 3rd [place] [address] 02/15/25 documented as of this encounter
--- OUTSIDE RECORDS SUMMARY | 2025-09-18 05:25 | XMS_ITS | Encounter Summary ---
Author Organization [facility] Address [address] [place] [address] Care Team Providers Care Svp Of Digital Name Role Phone Adithya Gutierrez MD Primary Care Provider Garrett Veliz MD Unavailable [phone] Kevin Mendez Unavailable Encounter Details Date Type Department Care Team (Late st Contact Info) Description 10/18/2024 Scanned Document [facility] Cardiothoracic Surgery [address] [place] [phone] Cardiology, Scan Social History Tobacco Use [...] on filedocumented in this encounter Care Teams Svp Of Digital Relationship Specialty Start Date End Date Adithya Gutierrez MD [address] [place] [address] PCP - General Internal Medicine 02/15/25 Garrett Veliz MD [address] [place] [address] Surgery, Cardiac 02/15/25 Kevin Mendez [address] [place] [address] 3rd [place] [address] 02/15/25 documented as of this encounter
--- OUTSIDE RECORDS SUMMARY | 2025-09-18 05:25 | XMS_ITS | Encounter Summary ---
Author Organization [facility] Address [address] [place] [address] Care Team Providers Care Group Home Supervisor Name Role Phone Adithya Gutierrez MD Primary Care Provider [phone] Garrett Veliz MD Unavailable [phone] Kevin Mendez Unavailable Encounter Details Date Type Department Care Team (Late st Contact Info) Description 01/01/2025 Scanned Document [facility] Cardiothoracic Surgery [address] [place] [phone] Cardiology, Scan Social History Tobacco Use [...] on filedocumented in this encounter Care Teams Group Home Supervisor Relationship Specialty Start Date End Date Adithya Gutierrez MD [address] [place] [address] PCP - General Internal Medicine 02/15/25 Garrett Veliz MD [address] [place] [address] Surgery, Cardiac 02/15/25 Kevin Mendez [address] [place] [address] 3rd [place] [address] 02/15/25 documented as of this encounter
--- OUTSIDE RECORDS SUMMARY | 2025-09-18 05:25 | XMS_ITS | Encounter Summary ---
Author Organization [facility] Address [address] [place] [address] Care Team Providers Care Furniture Mover Helper Name Role Phone Adithya Gutierrez MD Primary Care Provider [phone] Garrett Veliz MD Unavailable [phone] Kevin Mendez Unavailable Encounter Details Date Type Department Care Team (Late st Contact Info) Description 12/21/2024 Scanned Document [facility] Cardiothoracic Surgery [address] [place] [phone] Primary Care, Scan Social History Tobacco [...] on filedocumented in this encounter Care Teams Furniture Mover Helper Relationship Specialty Start Date End Date Adithya Gutierrez MD [address] [place] [address] PCP - General Internal Medicine 02/15/25 Garrett Veliz MD [address] [place] [address] Surgery, Cardiac 02/15/25 Kevin Mendez [address] [place] [address] 3rd [place] [address] 02/15/25 documented as of this encounter
== END 2025-09-17 13:11 | disposition home or self-care (01) ==
LOC: HO.LAB 13:10
PROVIDERS: PCP Internal Medicine; Visit Provider Urology
DX: R31.0 Gross hematuria (principal); R30.0 Dysuria
CPT/HCPCS: 81001; 87086

== ENCOUNTER 2025-10-16 14:06 | Outpatient (REF) | payer MEDICARE, BC, SELFPAY ==
--- OUTSIDE RECORDS SUMMARY | 2025-10-16 20:03 | XMS_ITS | Patient Health Record ---
Author Organization [facility] Address [address] [place] [address] Care Team Providers Care Manager Finance Name Role Phone Matt MENDOZA, Asma Primary Care Provider Danny Uribe Jr Unavailable [phone] Reason For Referral No Information Plan Of Treatment No Information Insurance Providers Payer Name Payer Address Payer Phone Subscriber Number Group Number Insured Name Patient Relationship to Insured Coverage Start Date Coverage End Date MEDICARE OF [place] [address] [place] [address] [id number] MATT HUIZAR Self - patient is the insured [facility] [address] [place] [address] [phone] [id number] MATT HUIZAR Self - patient is the insured
== END 2025-10-16 14:07 | disposition home or self-care (01) ==
LOC: HO.LAB 14:06
PROVIDERS: PCP Internal Medicine
DX: L29.3 Anogenital pruritus, unspecified (principal); R35.0 Frequency of micturition
CPT/HCPCS: 81003; 81515; 99212

== ENCOUNTER 2025-10-16 14:06 | Outpatient (AMB) | payer MEDICARE, BC, SELFPAY ==
[2025-10-16 14:10] VITALS: BP 120/70; PULSE 62; O2SAT 98; BMI 45.7
--- NOTE | 2025-10-16 14:10 | MHC.OFFWIV ---
Intake Vital Signs 10/16/25 14:10 Height 5 ft 3 in Weight 258 lb BMI 45.7 BP 120/70 Blood Pressure Location Lt brachial Position Sitting Pulse 62 Pulse Source Pulse Oximeter Pulse Oximetry (%) 98 Oxygen Delivery Method Room Air Intake Visit Reasons: EP Yeast infection? Intake Note: Patient presents c/o yeast infection in buttock area. Patient Tobacco Use Status: Former Tobacco user Allergies divalproex sodium (From Depakote) Allergy (Mild, Verified 10/16/25 14:14) diarrhea, brain fog gluten Allergy (Mild, Verified 10/16/25 14:14) Unknown hazelnut Allergy (Unknown, Verified 10/16/25 14:14) Unknown shellfish derived Allergy (Unknown, Verified 10/16/25 14:14) Unknown sesame seeds Allergy (Unknown, Uncoded 10/16/25 14:14) Unknown HPI HPI Comments History of Present Illness Details Patient is a 70yo F who presents with her for vaginal/anal itching She has had yeast infections in the past (recently) that have been managed by her PCP According to her records, 06/25 she was seen for vaginitis and given fluconazole po but swab was negative yeast, BV or trich Patient said she has had a few months of intermittent vaginal/anal itching She has used po fluconazole as well as topical nystatin cream without relief She said she also is using topical prep H for discomfort which helps Admits to urinary frequency without dysuria or urgency No fever or chills Denies abdominal pain aside from her crohns flare ups. No pain currently She called the office for fluconazole refill but they told her she needed to be evaluation for this issue No one in house has similar symptoms [facility] Medical History Non-insulin dependent type 2 diabetes mellitus Atrial flutter Bladder cancer Acute blood loss anemia Recurrent UTI Bilateral dacryocystitis Fall Frequency of urination Gait instability UTI (urinary tract infection) Pre-syncope Irritable bowel syndrome with diarrhea Chronic atrial fibrillation Paroxysmal atrial fibrillation C. difficile colitis Morbid obesity due to excess calories Weakness Leg edema Bipolar 1 disorder Vertigo PTSD (post-traumatic stress disorder) History of cardioversion Arthritis Hypothyroidism History of wheezing Diabetes mellitus HTN (hypertension) LBBB (left bundle branch block) PAF (paroxysmal atrial fibrillation) Surgical History History of cardiac cath History of cardiac radiofrequency ablation History of eye surgery Hx of section Hx of colonoscopy Hx of cholecystectomy Hx of arthroscopy of right knee Family History Father No problems noted. Mother No problems noted. Other Mental health disorder Substance use disorder Social History Household Members: Spouse Household Members Other:: daughter + Housing: House Do you presently have visiting nurse or other home services: Yes Alcohol intake: former Comment: feels safe and has a lift at home Patient Tobacco Use Status: Former Tobacco user Tobacco use type: Cigarette e-Cigarette/Vaping Use: Never Used Second Hand Smoke Exposure: No Advance Directives Date on File: 06/29/23 service: No Current occupational status: employed Sexual orientation: Straight/Heterosexual Cognitive needs: No Hearing needs: No Vision needs: Yes Physical Exam Exam Exam: General: Non-toxic, NAD. Speaking full sentences. Skin: Warm dry throughout. No emily-rectal, vaginal/genital rashes or edema noted on examination. No excoriations or cellulitis. No abscess or trauma Eye: EOMI Respiratory: No respiratory distress sitting in wheelchair Cardiac: RRR. No murmur Neurology: Alert. No aphasia or facial droop. Gait without abnormality Psych: Good mood and affect Vital Signs: Last Vital Signs Pulse 62 10/16/25 14:10 BP 120/70 10/16/25 14:10 Pulse Ox 98 10/16/25 14:10 Oxygen Delivery Method Room Air 10/16/25 14:10 BMI result Body Mass Index 45.7 Results AMB Urinalysis, Automated UA Leukoctes 0 Quiana/uL Last Edit by Cecilia Coleman CMA on 10/16/25 14:50 UA Nitrite Negative Last Edit by Cecilia Coleman CMA on 10/16/25 14:50 UA Urobilinogen 0.2 mg/dL Last Edit by Cecilia Coleman CMA on 10/16/25 14:50 UA Protein 0 mg/dL Last Edit by Cecilia Coleman CMA on 10/16/25 14:50 UA pH 6.0 Last Edit by Cecilia Coleman CMA on 10/16/25 14:50 UA Blood 80 Kayode/uL Last Edit by Cecilia Coleman CMA on 10/16/25 14:50 UA Specific [place]ot 1.015 Last Edit by Cecilia Coleman CMA on 10/16/25 14:50 UA Ketone Negative Last Edit by Cecilia Coleman CMA on 10/16/25 14:50 UA Bilirubin 0 mg/dL Last Edit by Cecilia Coleman CMA on 10/16/25 14:50 UA Glucose 0 mg/dL Last Edit by Cecilia Coleman CMA on 10/16/25 14:50 Results Reviewed Results Reviewed: Laboratory Last Values Urine pH (Auto) 6.0 10/16/25 14:48 Specific [place] (Auto) 1.015 10/16/25 14:48 Urine Protein (Auto) 0 mg/dL 10/16/25 14:48 Glucose (UA)(Auto) 0 mg/dL 10/16/25 14:48 Urine Ketones (Auto) Negative 10/16/25 14:48 Urine Blood (Auto) 80 Kayode/uL H* 10/16/25 14:48 Urine Nitrite (Auto) Negative 10/16/25 14:48 Urine Bilirubin (Auto) 0 mg/dL 10/16/25 14:48 Urine Urobilinogen (Auto) 0.2 mg/dL 10/16/25 14:48 Leukocyte Esterase (Auto) 0 Quiana/uL 10/16/25 14:48 Assessment & Plan Assessment & Plan (1) Genital pruritus: Code(s): L29.3 - Anogenital pruritus, unspecified Plan: Patient seen and evaluated. No severe fungal rash noted on examination in office U/a: 2+ blood but no leuks, nitrites or glucose. No culture indicated at this time Vaginitis panel will be obtained and ordered Discussed with pt and that we will hold on oral antifungal at this time due to no + swab with diagnosis Will d/c nystatin and use ketoconazole This may just be itching caused by poor hygeine. Pt has difficult time wiping and if no one is there to assist her, she places a pad in her underwear. + causing irritation and anal itching Discussed pcp follow up Patient gave verbal understanding and had no additional questions or concerns at time of discharge All questions answered (2) Urinary frequency: Code(s): R35.0 - Frequency of micturition Plan: u/a + blood not no leuks or indication for culture. Orders: Orders AMB Urinalysis Automated Today Z13.9 - Encounter for screening, unspecified Bacterial Vaginosis Panel Today L29.3 - Anogenital pruritus, unspecified Medications: New ketoconazole 2% 1 appl topical DAILY 60 grams 0RF 1 week Coding Level of Care Code Est Pt Level 3 (30317) Diagnoses Genital pruritus L29.3 Urinary frequency R35.0
--- OUTSIDE RECORDS SUMMARY | 2025-10-16 18:52 | XMS_ITS | Encounter Summary ---
Author Organization [facility] Address [address] [place] [address] Care Team Providers Care Hydroelectric Plant Technician Name Role Phone Adithya Gutierrez MD Primary Care Provider [phone] Garrett Veliz MD Unavailable [phone] Kevin Mendez Unavailable Encounter Details Date Type Department Care Team (Late st Contact Info) Description 01/01/2025 Scanned Document [facility] Cardiothoracic Surgery [address] [place] [phone] Cardiology, Scan Social History Tobacco Use [...] on filedocumented in this encounter Care Teams Hydroelectric Plant Technician Relationship Specialty Start Date End Date Adithya Gutierrez MD [address] [place] [address] PCP - General Internal Medicine 02/15/25 Garrett Veliz MD [address] [place] [address] Surgery, Cardiac 02/15/25 Kevin Mendez [address] [place] [address] 3rd [place] [address] 02/15/25 documented as of this encounter
--- OUTSIDE RECORDS SUMMARY | 2025-10-16 18:52 | XMS_ITS | Encounter Summary ---
Author Organization [facility] Address [address] [place] [address] Care Team Providers Care Bread Racker Name Role Phone Adithya Gutierrez MD Primary Care Provider [phone] Garrett Veliz MD Unavailable [phone] Kevin Mendez Unavailable Encounter Details Date Type Department Care Team (Late st Contact Info) Description 02/15/2025 Scanned Document [facility] Cardiothoracic Surgery [address] [place] [phone] Provider, Generic Social History Tobacco Use [...] on filedocumented in this encounter Care Teams Bread Racker Relationship Specialty Start Date End Date Adithya Gutierrez MD [address] [place] [address] PCP - General Internal Medicine 02/15/25 Garrett Veliz MD [address] [place] [address] Surgery, Cardiac 02/15/25 Kevin Mendez [address] [place] [address] 3rd [place] [address] 02/15/25 documented as of this encounter
--- OUTSIDE RECORDS SUMMARY | 2025-10-16 18:52 | XMS_ITS | Encounter Summary ---
Author Organization [facility] Address [address] [place] [address] Care Team Providers Care Specialty Development Consultant Name Role Phone Adithya Gutierrez MD Primary Care Provider Garrett Veliz MD Unavailable [phone] Kevin Mendez Unavailable Encounter Details Date Type Department Care Team (Late st Contact Info) Description 05/21/2025 Scanned Document [facility] Cardiothoracic Surgery [address] [phone] Cardiology, Scan Social History Tobacco [...] on filedocumented in this encounter Care Teams Specialty Development Consultant Relationship Specialty Start Date End Date Adithya Gutierrez MD [facility] [place] [address] PCP - General Internal Medicine 02/15/25 Garrett Veliz MD [address] [place] [address] Surgery, Cardiac 02/15/25 Kevin Mendez [address] [place] [address] 3rd [place] [address] 02/15/25 documented as of this encounter
--- OUTSIDE RECORDS SUMMARY | 2025-10-16 18:52 | XMS_ITS | Encounter Summary ---
Author Organization [facility] Address [address] [place] [address] Care Team Providers Care Commercial Shrimping Captain Name Role Phone Adithya Gutierrez MD Primary Care Provider Garrett Veliz MD Unavailable [phone] Kevin Mendez Unavailable Encounter Details Date Type Department Care Team (Late st Contact Info) Description 01/27/2025 Scanned Document [facility] Cardiothoracic Surgery [address] [phone] Cardiology, Scan Social History Tobacco [...] on filedocumented in this encounter Care Teams Commercial Shrimping Captain Relationship Specialty Start Date End Date Adithya Gutierrez MD [facility] [place] [address] PCP - General Internal Medicine 02/15/25 Garrett Veliz MD [address] [place] [address] Surgery, Cardiac 02/15/25 Kevin Mendez [address] [place] [address] 3rd [place] [address] 02/15/25 documented as of this encounter
--- OUTSIDE RECORDS SUMMARY | 2025-10-16 18:52 | XMS_ITS | Encounter Summary ---
Author Organization [facility] Address [address] [place] [address] Care Team Providers Care Head Buyer Tobacco Name Role Phone Adithya Gutierrez MD Primary Care Provider [phone] Garrett Veliz MD Unavailable [phone] Kevin Mendez Unavailable Encounter Details Date Type Department Care Team (Late st Contact Info) Description 10/18/2024 Scanned Document [facility] Cardiothoracic Surgery [address] [place] [phone] Cardiology, Scan Social History Tobacco Use [...] on filedocumented in this encounter Care Teams Head Buyer Tobacco Relationship Specialty Start Date End Date Adithya Gutierrez MD [address] [place] [address] PCP - General Internal Medicine 02/15/25 Garrett Veliz MD [address] [place] [address] Surgery, Cardiac 02/15/25 Keivn Mendez [address] [place] [address] [place] [address] 02/15/25 documented as of this encounter
--- OUTSIDE RECORDS SUMMARY | 2025-10-16 18:52 | XMS_ITS | Clinical Summary ---
Author Organization [facility] Address [address] [place] [address] Care Team Providers Care Card Folder Name Role Phone Adithya Gutierrez MD Primary Care Provider [phone] Garrett Veliz MD Unavailable [phone] Kevin Mendez Unavailable Allergies Active Allergy Reactions [...] Left bundle branch block 07/02/2023 Incoordination 07/02/2023 Social History Tobacco Use Types Packs/Day Years [...] 2022 Influenza Vaccine 05/31/2025 COVID-19 Vaccine (1 - 2024-2 6 season) 2025 Hepatitis B Vaccines Aged Out No long er eligible based on patient's age to complete this topic Insurance MEDICARE PART A & B [facility] Care Teams Card Folder Relationship Specialty Start Date End Date Adithya Gutierrez MD [address] [place] [address] PCP - General Internal Medicine 02/15/25 Garrett Veliz MD [address] [place] [id number] Surgery, Cardiac 02/15/25 Kevin Mendez [address] [place] [address] [address] [place] [address] 02/15/25
--- OUTSIDE RECORDS SUMMARY | 2025-10-16 18:52 | XMS_ITS | Encounter Summary ---
Author Organization [facility] Address [address] [place] [address] Care Team Providers Care Residential Gas Heat Technician Name Role Phone Adithya Gutierrez MD Primary Care Provider [phone] Garrett Veliz MD Unavailable [phone] Kevin Mendez Unavailable Encounter Details Date Type Department Care Team (Late st Contact Info) Description 12/21/2024 Scanned Document [facility] Cardiothoracic Surgery [address] [place] [id number] Primary Care, Scan Social History Tobacco [...] on filedocumented in this encounter Care Teams Residential Gas Heat Technician Relationship Specialty Start Date End Date Adithya Gutierrez MD [address] [place] [id number] PCP - General Internal Medicine 02/15/25 Garrett Veliz MD [address] [place] [id number] Surgery, Cardiac 02/15/25 Kevin Mendez [address] [place] [address] [address] [place] [address] 02/15/25 documented as of this encounter
== END 2025-10-16 15:41 | disposition home or self-care (01) ==
PROVIDERS: PCP Internal Medicine; Visit Provider Physician Assistant
DX: L29.3 Anogenital pruritus, unspecified (principal); R35.0 Frequency of micturition; Z13.9 Encounter for screening, unspecified

== ENCOUNTER 2025-10-16 15:07 | Outpatient (REF) | payer MEDICARE, BC, SELFPAY ==
[2025-10-17 01:33] LABS: Bacterial Vaginosis PCR NEGATIVE (Negative); Candida Group PCR NOT DETECTED (Not Detect); Candida glab krusei PCR NOT DETECTED (Not Detect); Trichomonas vaginalis PCR NOT DETECTED (Not Detect)
== END 2025-10-16 15:08 | disposition home or self-care (01) ==
LOC: HO.LNP 15:07
PROVIDERS: Visit Provider Physician Assistant
DX: L29.3 Anogenital pruritus, unspecified (principal)
CPT/HCPCS: 81515